=== PATIENT | female | born 1965 | race Hispanic/Latino ===

== ENCOUNTER 2017-11-09 13:05 | Inpatient (IN) | payer MEDICAID ==
[~2017-11-09] VITALS: Ht 157.5 cm; Wt 59.9 kg
[~2017-11-09 13:05] MED LIST: ACETAMINOP650 MG/20. PO; AMLODIPINE BESYL5 MG PO; ARICEPT5 MG PO; ATIVAN1 MG PO; BENADRYL25 MG PO; COLACE100 MG PO; DILANTIN100 MG PO; IMODIUM2 MG PO; IRON325 M1 PO; LORAZEPAM0.5 MG PO; MULTIVITAMINS1 EAC2 PO; NAMENDA10 MG PO; NEXIUM40 MG PO; OYST CAL D 5001 EACH PO; QUETIAPINE FUMA25 MG PO; SENOKOT1 TAB PO; TYLENOL #31 TAB PO; VITAMIN B-1100 MG PO; VITAMIN D400 INTLU PO
[2017-11-09] MEDS ORDERED: NS 1000ml 2,200 ML IVLG ONE (13:15)
[2017-11-09] MEDS ORDERED: Albuterol/Ipratropium 3ml neb HHN ONE (13:30)
[2017-11-09 13:41] LABS: APPEARANCE,URINE SLIGHTLY CLOUDY; BILIRUBIN, URINE NEGATIVE (NEGATIVE); GLUCOSE, URINE (UA) NEGATIVE (NEGATIVE); KETONES,URINE 2+ (NEGATIVE); LEUKOCYTE ESTERASE ,URINE 3+ (NEGATIVE); NITRITE,URINE NEGATIVE (NEGATIVE); PH,URINE 6.5 (4.5-8.0); PROTEIN,URINE 4+ (NEGATIVE); UROBILINOGEN,URINE NORMAL MG/DL (0.0-1.0)
[2017-11-09 13:41] LABS: HEMATOCRIT 49.2 % (37.0-47.0); MEAN CORPUSCULAR VOLUME 92 FL (80-99); PLATELET COUNT 365 K/UL (150-450); RED BLOOD COUNT 5.36 M/UL (4.20-5.40); RED CELL DISTRIBUTION WIDTH 14.1 % (11.6-14.8)
[2017-11-09 13:48] LABS: COLOR,URINE YELLOW
[2017-11-09 13:54] LABS: INR 1.1 (0.9-1.1)
[2017-11-09 14:09] LABS: ALANINE AMINOTRANSFERASE 23 U/L (12-78); ANION GAP 25 mmol/L (5-15); ASPARTATE AMINO TRANSFERASE 23 U/L (15-37); BILIRUBIN,TOTAL 0.6 MG/DL (0.2-1.0); BLOOD UREA NITROGEN 98 mg/dL (7-18); CALCIUM 10.3 MG/DL (8.5-10.1); CARBON DIOXIDE 15 MMOL/L (21-32); CHLORIDE 136 MMOL/L (98-107); CKMB < 0.5 NG/ML (0.0-3.6); CREATINE KINASE 45 U/L (26-308); CREATININE 6.2 MG/DL (0.55-1.30); PHOSPHORUS 7.2 MG/DL (2.5-4.9); POTASSIUM 4.8 MMOL/L (3.5-5.1)
[2017-11-09 14:10] LABS: ALBUMIN 3.6 G/DL (3.4-5.0); ALBUMIN/GLOBULIN RATIO 0.5 (1.0-2.7); ALKALINE PHOSPHATASE 187 U/L (46-116)
[2017-11-09 14:11] LABS: SODIUM 177 MMOL/L (136-145)
[2017-11-09 15:00] VITALS: BP 85/55
--- NOTE | 2017-11-09 15:01 | Emergency Room Report ---
History of Present Illness General Chief Complaint: Dyspnea/Respdistress Present Illness HPI Patient is a 52-year-old female brought in by EMS after a decreased oxygen saturation. Patient was noted to have a prior history of tracheostomy. Tracheostomy had been removed. Patient was noted to be chronically debilitated. She was the sent in for increased difficulty breathing. (Khang Boles MD) Allergies: Coded Allergies: CEFEPIME (Unverified Allergy, Unknown, 11/09/17) Patient History Past Medical History: see triage record Last Menstrual Period: na Now: No Reviewed Nursing Documentation: PMH: Agreed; PSxH: Agreed (Khang Boles MD) Nursing Documentation-PMH Hx Cardiac Problems: Yes - CHF Hx Neurological Problems: Yes - HYDROCEPHALUS Hx Seizures: Yes (Khang Boles MD) Physical Exam Vital Signs Date Time Temp Pulse Resp B/P (MAP) Pulse Ox O2 Delivery O2 Flow Rate FiO2 11/09/17 13:00 96.2 122 28 98/78 97 Simple Mask 10.0 96.3 General Appearance: thin, Chronically Ill Head: other - vp analysis shunt present ENT: dry mucus membranes Neck: limited range of motion Respiratory: lungs clear, normal breath sounds, no rhonchi Cardiovascular #1: tachycardia Gastrointestinal: normal bowel sounds, non tender, soft, other - suprapubic catheter] Neurologic: responsive, motor weakness (Khang Boles MD) Medical Decision Making Diagnostic Impression: Primary Impression: Renal failure Additional Impressions: Acidosis Severe sepsis UTI (urinary tract infection) ER Course . Present for shortness of breath. The differential diagnosis included wasn't limited to dehydration, sepsis, pneumonia, COPD among others.Because of complexity of patient's case laboratory testing and imaging studies were ordered.The patient noted to have some evidence of urinary infection on laboratory testing. Patient was started on IV fluids with improvement in her blood pressure.The patient will likely require admission for further management and IV antibiotics. Labs Test 11/09/17 13:00 11/09/17 13:30 11/09/17 14:35 White Blood Count 11.0 K/UL (4.8-10.8) Red Blood Count 5.36 M/UL (4.20-5.40) Hemoglobin 15.0 G/DL (12.0-16.0) Hematocrit 49.2 % (37.0-47.0) Mean Corpuscular Volume 92 FL (80-99) Mean Corpuscular Hemoglobin 28.0 PG (27.0-31.0) Mean Corpuscular Hemoglobin Concent 30.5 G/DL (32.0-36.0) Red Cell Distribution Width 14.1 % (11.6-14.8) Platelet Count 365 K/UL (150-450) Mean Platelet Volume 8.9 FL (6.5-10.1) Neutrophils (%) (Auto) % (45.0-75.0) Lymphocytes (%) (Auto) % (20.0-45.0) Monocytes (%) (Auto) % (1.0-10.0) Eosinophils (%) (Auto) % (0.0-3.0) Basophils (%) (Auto) % (0.0-2.0) Differential Total Cells Counted 100 Neutrophils % (Manual) 72 % (45-75) Lymphocytes % (Manual) 24 % (20-45) Monocytes % (Manual) 4 % (1-10) Eosinophils % (Manual) 0 % (0-3) Basophils % (Manual) 0 % (0-2) Band Neutrophils 0 % (0-8) Platelet Estimate Adequate Platelet Morphology Normal Anisocytosis 1+ Prothrombin Time 11.4 SEC (9.30-11.50) Prothromb Time International Ratio 1.1 (0.9-1.1) Activated Partial Thromboplast Time 22 SEC (23-33) Sodium Level 177 MMOL/L (136-145) Potassium Level 4.8 MMOL/L (3.5-5.1) Chloride Level 136 MMOL/L (98-107) Carbon Dioxide Level 15 MMOL/L (21-32) Anion Gap 25 mmol/L (5-15) Blood Urea Nitrogen 98 mg/dL (7-18) Creatinine 6.2 MG/DL (0.55-1.30) Estimat Glomerular Filtration Rate 7.0 mL/min (>60) Glucose Level 128 MG/DL (74-106) Calcium Level 10.3 MG/DL (8.5-10.1) Phosphorus Level 7.2 MG/DL (2.5-4.9) Magnesium Level 3.0 MG/DL (1.8-2.4) Total Bilirubin 0.6 MG/DL (0.2-1.0) Aspartate Amino Transf (AST/SGOT) 23 U/L (15-37) Alanine Aminotransferase (ALT/SGPT) 23 U/L (12-78) Alkaline Phosphatase 187 U/L (46-116) Total Creatine Kinase 45 U/L (26-308) Creatine Kinase MB < 0.5 NG/ML (0.0-3.6) Creatine Kinase MB Relative Index 1.1 Troponin I 0.000 ng/mL (0.000-0.056) Total Protein 10.9 G/DL (6.4-8.2) Albumin 3.6 G/DL (3.4-5.0) Globulin 7.3 g/dL Albumin/Globulin Ratio 0.5 (1.0-2.7) Urine Color Yellow Urine Appearance Slightly cloudy Urine pH 6.5 (4.5-8.0) Urine Specific [place] 1.015 (1.005-1.035) Urine Protein 4+ (NEGATIVE) Urine Glucose (UA) Negative (NEGATIVE) Urine Ketones 2+ (NEGATIVE) Urine Blood 5+ (NEGATIVE) Urine Nitrite Negative (NEGATIVE) Urine Bilirubin Negative (NEGATIVE) Urine Urobilinogen Normal MG/DL (0.0-1.0) Urine Leukocyte Esterase 3+ (NEGATIVE) Urine RBC 40-60 /HPF (0 - 2) Urine WBC 40-60 /HPF (0 - 2) Urine Squamous Epithelial Cells Few /LPF (NONE/OCC) Urine Bacteria Few /HPF (NONE) (Khang Boles MD) ER Course Patient presents with reports of shortness of breath please refer to the initial note for the initial history and evaluation A secondary evaluation is performed by myself as well With further medical record search Patient appears to have a complex medical history including recent renal failure Patient has a suprapubic catheter Is also reports of having bilateral J stents Patient's last review of medical records reveals kidney function that had improved with the BUN/creatinine and creatinine of 18 and 1.4 Patient herself is not able to provide any history This does limit the history of present illness significantly At this time the patient's kidney function returns significantly abnormal Aggressive hydration is performed Labs Test 11/09/17 13:00 11/09/17 13:30 11/09/17 14:35 White Blood Count 11.0 K/UL (4.8-10.8) Red Blood Count 5.36 M/UL (4.20-5.40) Hemoglobin 15.0 G/DL (12.0-16.0) Hematocrit 49.2 % (37.0-47.0) Mean Corpuscular Volume 92 FL (80-99) Mean Corpuscular Hemoglobin 28.0 PG (27.0-31.0) Mean Corpuscular Hemoglobin Concent 30.5 G/DL (32.0-36.0) Red Cell Distribution Width 14.1 % (11.6-14.8) Platelet Count 365 K/UL (150-450) Mean Platelet Volume 8.9 FL (6.5-10.1) Neutrophils (%) (Auto) % (45.0-75.0) Lymphocytes (%) (Auto) % (20.0-45.0) Monocytes (%) (Auto) % (1.0-10.0) Eosinophils (%) (Auto) % (0.0-3.0) Basophils (%) (Auto) % (0.0-2.0) Differential Total Cells Counted 100 Neutrophils % (Manual) 72 % (45-75) Lymphocytes % (Manual) 24 % (20-45) Monocytes % (Manual) 4 % (1-10) Eosinophils % (Manual) 0 % (0-3) Basophils % (Manual) 0 % (0-2) Band Neutrophils 0 % (0-8) Platelet Estimate Adequate Platelet Morphology Normal Anisocytosis 1+ Prothrombin Time 11.4 SEC (9.30-11.50) Prothromb Time International Ratio 1.1 (0.9-1.1) Activated Partial Thromboplast Time 22 SEC (23-33) Sodium Level 177 MMOL/L (136-145) Potassium Level 4.8 MMOL/L (3.5-5.1) Chloride Level 136 MMOL/L (98-107) Carbon Dioxide Level 15 MMOL/L (21-32) Anion Gap 25 mmol/L (5-15) Blood Urea Nitrogen 98 mg/dL (7-18) Creatinine 6.2 MG/DL (0.55-1.30) Estimat Glomerular Filtration Rate 7.0 mL/min (>60) Glucose Level 128 MG/DL (74-106) Lactic Acid Level 3.40 mmol/L (0.4-2.0) 2.80 mmol/L (0.66-2.22) Calcium Level 10.3 MG/DL (8.5-10.1) Phosphorus Level 7.2 MG/DL (2.5-4.9) Magnesium Level 3.0 MG/DL (1.8-2.4) Total Bilirubin 0.6 MG/DL (0.2-1.0) Aspartate Amino Transf (AST/SGOT) 23 U/L (15-37) Alanine Aminotransferase (ALT/SGPT) 23 U/L (12-78) Alkaline Phosphatase 187 U/L (46-116) Total Creatine Kinase 45 U/L (26-308) Creatine Kinase MB < 0.5 NG/ML (0.0-3.6) Creatine Kinase MB Relative Index 1.1 Troponin I 0.000 ng/mL (0.000-0.056) Total Protein 10.9 G/DL (6.4-8.2) Albumin 3.6 G/DL (3.4-5.0) Globulin 7.3 g/dL Albumin/Globulin Ratio 0.5 (1.0-2.7) Urine Color Yellow Urine Appearance Slightly cloudy Urine pH 6.5 (4.5-8.0) Urine Specific [place] 1.015 (1.005-1.035) Urine Protein 4+ (NEGATIVE) Urine Glucose (UA) Negative (NEGATIVE) Urine Ketones 2+ (NEGATIVE) Urine Blood 5+ (NEGATIVE) Urine Nitrite Negative (NEGATIVE) Urine Bilirubin Negative (NEGATIVE) Urine Urobilinogen Normal MG/DL (0.0-1.0) Urine Leukocyte Esterase 3+ (NEGATIVE) Urine RBC 40-60 /HPF (0 - 2) Urine WBC 40-60 /HPF (0 - 2) Urine Squamous Epithelial Cells Few /LPF (NONE/OCC) Urine Bacteria Few /HPF (NONE) (Tonie Squires DO) Rhythm Strip Diag. Results EP Interpretation: yes Rate: 66 Rhythm: NSR, no PVC's, no ectopy (Tonie Squires DO) Chest X-Ray Diagnostic Results Chest X-Ray Diagnostic Results : Chest X-Ray Ordered: Yes # of Views/Limited/Complete: 1 View Indication: Chest Pain EP Interpretation: Yes Interpretation: no consolidation, no effusion, no pneumothorax Impression: No acute disease Electronically Signed by: Tonie Squires DO (Tonie Squires DO) CT/MRI/US Diagnostic Results CT/MRI/US Diagnostic Results : Impression CT abdomen pelvis: Refer to report for full specific, KNIFE CHANGER shunt in place, bilateral nephrolithiasis (Tonie Squires DO) Last Vital Signs Date Time Temp Pulse Resp B/P (MAP) Pulse Ox O2 Delivery O2 Flow Rate FiO2 11/09/17 14:24 120 24 11/09/17 13:55 97 Nasal Cannula 2.0 11/09/17 13:00 96.2 98/78 96.3 Status: unchanged (Khang Boles MD) Status: improved (Tonie Squires DO) Disposition: ADMITTED INPATIENT Condition: Serious Referrals: NOT CHOSEN IPA/,REFERRING (PCP) Khang Boles MD Nov 09, 2017 15:01 Tonie Suqires DO Nov 09, 2017 15:26
[2017-11-09 16:00] VITALS: BP 90/53
[2017-11-09] MEDS ORDERED: cefTRIAXone 1 GM in NS 55 ML IVPB ONE (16:00)
[2017-11-09 17:00] VITALS: BP 91/62
--- NOTE | 2017-11-09 18:01 | History and Physical ---
History & Physical (DB) History & Physical History & Physical DICT # [id number] Jose Montalvo MD Nov 09, 2017 18:01
[2017-11-09] MEDS ORDERED: CRANBERRY425 MG PO (18:06)
[2017-11-09] MEDS ORDERED: ACETAMINOPHEN325 M1 ORAL (18:13)
[2017-11-09] MEDS ORDERED: ZOFRAN4 M3 ORAL (18:13)
[2017-11-09] MEDS ORDERED: HYDROCORTISONE 1% TOPIC (18:13)
[2017-11-09] MEDS ORDERED: FLORASTOR250 MG ORAL (18:13)
[2017-11-09] MEDS ORDERED: PROTONIX40 MG ORAL (18:13)
[2017-11-09] MEDS ORDERED: MIDODRINE HCL5 MG ORAL (18:13)
[2017-11-09] MEDS ORDERED: MULTIVITAMINS1 EAC8 ORAL (18:13)
[2017-11-09] MEDS ORDERED: LEVETIRACETAM500 MG ORAL (18:13)
[2017-11-09] MEDS ORDERED: DOCUSATE SODIU100 MG ORAL (18:13)
[2017-11-09] MEDS ORDERED: SENNA8.6 M2 PO (18:14)
[2017-11-09 18:15] VITALS: BP 95/67
[2017-11-09 19:20] VITALS: BP 98/68
[2017-11-09 20:30] VITALS: BP 101/65
[2017-11-09] MEDS ORDERED: Sennosides 8.6mg ORAL PRN (21:30)
[2017-11-09] MEDS ORDERED: Piperacillin/Tazobactam 3.375 GM in D5W 110 ML IVPB SCH (22:30)
--- NOTE | 2017-11-09 22:39 | Infectious Diseases Prog Note ---
Assessment/Plan Problems: (1) Acute pyelonephritis Assessment & Plan: suspect due to right ureter stent obstruction, continue meropenem pending culture, recommend urology eval, will order renal US (2) Hydronephrosis of right kidney Assessment & Plan: suspect ureter stent malfunction , will order renal US, recommend urology eval (3) Severe sepsis Assessment & Plan: suspect due to UTI and possible pneumonia , continue meropenem pending blood culture (4) Renal failure Assessment & Plan: continue hydration , monitor renal function, consult renal (5) Hypernatremia Assessment & Plan: due to free water loss , continue hydration with close monitor of serum sodium (6) Acidosis Assessment & Plan: due to the above Subjective Allergies: Coded Allergies: CEFEPIME (Unverified Allergy, Unknown, 11/09/17) Objective Vital Signs Last 24 Hour Vital Signs Date Time Temp Pulse Resp B/P (MAP) Pulse Ox O2 Delivery O2 Flow Rate FiO2 11/09/17 20:30 93.8 93 22 101/65 (77) 95 93.8 11/09/17 20:07 93.8 95 18 98/68 95 Nasal Cannula 2.0 93.8 97 95 11/09/17 19:20 93.8 97 18 98/68 95 Nasal Cannula 2.0 93.8 95 11/09/17 18:15 95 16 95/67 95 Nasal Cannula 2.0 11/09/17 17:00 100 16 91/62 95 Nasal Cannula 2.0 11/09/17 16:00 101 16 90/53 97 Nasal Cannula 2.0 11/09/17 15:00 105 16 85/55 97 Nasal Cannula 2.0 11/09/17 14:24 120 24 11/09/17 13:55 117 20 97 Nasal Cannula 2.0 11/09/17 13:35 119 22 98 Room Air 11/09/17 13:33 119 22 Room Air 11/09/17 13:00 96.2 122 28 98/78 97 Simple Mask 10.0 96.3 Height (Feet): 5 Height (Inches): 3.00 Weight (Pounds): 160 Laboratory Tests Test 11/09/17 13:00 11/09/17 13:30 11/09/17 14:35 White Blood Count 11.0 K/UL (4.8-10.8) H Red Blood Count 5.36 M/UL (4.20-5.40) Hemoglobin 15.0 G/DL (12.0-16.0) Hematocrit 49.2 % (37.0-47.0) H Mean Corpuscular Volume 92 FL (80-99) Mean Corpuscular Hemoglobin 28.0 PG (27.0-31.0) Mean Corpuscular Hemoglobin Concent 30.5 G/DL (32.0-36.0) L Red Cell Distribution Width 14.1 % (11.6-14.8) Platelet Count 365 K/UL (150-450) Mean Platelet Volume 8.9 FL (6.5-10.1) Neutrophils (%) (Auto) % (45.0-75.0) Lymphocytes (%) (Auto) % (20.0-45.0) Monocytes (%) (Auto) % (1.0-10.0) Eosinophils (%) (Auto) % (0.0-3.0) Basophils (%) (Auto) % (0.0-2.0) Differential Total Cells Counted 100 Neutrophils % (Manual) 72 % (45-75) Lymphocytes % (Manual) 24 % (20-45) Monocytes % (Manual) 4 % (1-10) Eosinophils % (Manual) 0 % (0-3) Basophils % (Manual) 0 % (0-2) Band Neutrophils 0 % (0-8) Platelet Estimate Adequate Platelet Morphology Normal Anisocytosis 1+ Prothrombin Time 11.4 SEC (9.30-11.50) Prothromb Time International Ratio 1.1 (0.9-1.1) Activated Partial Thromboplast Time 22 SEC (23-33) L Sodium Level 177 MMOL/L (136-145) *H Potassium Level 4.8 MMOL/L (3.5-5.1) Chloride Level 136 MMOL/L (98-107) H Carbon Dioxide Level 15 MMOL/L (21-32) L Anion Gap 25 mmol/L (5-15) H Blood Urea Nitrogen 98 mg/dL (7-18) H Creatinine 6.2 MG/DL (0.55-1.30) H Estimat Glomerular Filtration Rate 7.0 mL/min (>60) Glucose Level 128 MG/DL (74-106) H Lactic Acid Level 3.40 mmol/L (0.4-2.0) H 2.80 mmol/L (0.66-2.22) H Calcium Level 10.3 MG/DL (8.5-10.1) H Phosphorus Level 7.2 MG/DL (2.5-4.9) H Magnesium Level 3.0 MG/DL (1.8-2.4) H Total Bilirubin 0.6 MG/DL (0.2-1.0) Aspartate Amino Transf (AST/SGOT) 23 U/L (15-37) Alanine Aminotransferase (ALT/SGPT) 23 U/L (12-78) Alkaline Phosphatase 187 U/L (46-116) H Total Creatine Kinase 45 U/L (26-308) Creatine Kinase MB < 0.5 NG/ML (0.0-3.6) Creatine Kinase MB Relative Index 1.1 Troponin I 0.000 ng/mL (0.000-0.056) Total Protein 10.9 G/DL (6.4-8.2) H Albumin 3.6 G/DL (3.4-5.0) Globulin 7.3 g/dL Albumin/Globulin Ratio 0.5 (1.0-2.7) L Urine Color Yellow Urine Appearance Slightly cloudy Urine pH 6.5 (4.5-8.0) Urine Specific [place] 1.015 (1.005-1.035) Urine Protein 4+ (NEGATIVE) H Urine Glucose (UA) Negative (NEGATIVE) Urine Ketones 2+ (NEGATIVE) H Urine Blood 5+ (NEGATIVE) H Urine Nitrite Negative (NEGATIVE) Urine Bilirubin Negative (NEGATIVE) Urine Urobilinogen Normal MG/DL (0.0-1.0) Urine Leukocyte Esterase 3+ (NEGATIVE) H Urine RBC 40-60 /HPF (0 - 2) H Urine WBC 40-60 /HPF (0 - 2) H Urine Squamous Epithelial Cells Few /LPF (NONE/OCC) Urine Bacteria Few /HPF (NONE) Current Medications Medications (Trade) Dose Ordered Sig/Tay Route PRN Reason Start Time Stop Time Status Last Admin Dose Admin Acetaminophen (Tylenol) 650 mg Q6H PRN ORAL Mild Pain/Temp > 101 11/09/17 21:30 12/09/17 21:29 Dextrose/Sodium Chloride 1,000 ml @ 150 mls/hr Q6H40M IV 11/09/17 22:30 12/09/17 22:29 Docusate Sodium (Colace) 100 mg TWICE A DAY ORAL 11/10/17 09:00 12/10/17 08:59 Heparin Sodium (Porcine) (Heparin 5000 units/ml) 5,000 units EVERY 12 HOURS SUBQ 11/10/17 09:00 12/10/17 08:59 Levetiracetam 100 ml @ 400 mls/hr Q12HR IVPB 11/09/17 22:30 12/09/17 22:29 Meropenem 1 gm/ Sodium Chloride 55 ml @ 110 mls/hr Q12HR IVPB 11/09/17 23:00 11/10/17 09:29 Midodrine (Pro-Amatine) 5 mg THREE TIMES A DAY ORAL 11/10/17 09:00 12/10/17 08:59 Ondansetron HCl (Zofran) 4 mg Q4H PRN IVP Nausea & Vomiting 11/09/17 21:30 12/09/17 21:29 Pantoprazole (Protonix) 40 mg DAILY IVP 11/10/17 09:00 12/10/17 08:59 Sennosides (Senokot) 1 tab DAILY PRN ORAL Constipation 11/09/17 21:30 12/09/17 21:29 Kortney Quiñones M.D. Nov 09, 2017 22:39
[2017-11-09 23:11] LABS: BASOPHILS % (AUTO) 1.4 % (0.0-2.0); EOSINOPHILS % (AUTO) 0.1 % (0.0-3.0); HEMATOCRIT 35.5 % (37.0-47.0); HEMOGLOBIN 11.4 G/DL (12.0-16.0); LYMPHOCYTES % (AUTO) 32.9 % (20.0-45.0); MEAN CORPUSCULAR VOLUME 91 FL (80-99); MONOCYTES % (AUTO) 6.6 % (1.0-10.0); NEUTROPHILS % (AUTO) 59.1 % (45.0-75.0); PLATELET COUNT 183 K/UL (150-450); RED BLOOD COUNT 3.92 M/UL (4.20-5.40); RED CELL DISTRIBUTION WIDTH 13.5 % (11.6-14.8); WHITE BLOOD COUNT 3.7 K/UL (4.8-10.8)
[2017-11-09] MEDS: Meropenem 1 GM in NS 55 ML IVPB SCH (23:22)
[2017-11-09] MEDS: levETIRAcetam 500mg/NS100ml 100 ML IVPB SCH (23:22)
[2017-11-09] MEDS: D5NS 1,000 ML IV SCH (23:23)
[2017-11-09 23:42] LABS: ALANINE AMINOTRANSFERASE 18 U/L (12-78); ALBUMIN 2.4 G/DL (3.4-5.0); ALBUMIN/GLOBULIN RATIO 0.5 (1.0-2.7); ALKALINE PHOSPHATASE 132 U/L (46-116); ANION GAP 16 mmol/L (5-15); ASPARTATE AMINO TRANSFERASE 17 U/L (15-37); BILIRUBIN,TOTAL 0.4 MG/DL (0.2-1.0); BLOOD UREA NITROGEN 74 mg/dL (7-18); CALCIUM 7.6 MG/DL (8.5-10.1); CARBON DIOXIDE 17 MMOL/L (21-32); CHLORIDE 141 MMOL/L (98-107); CREATININE 4.3 MG/DL (0.55-1.30); POTASSIUM 3.5 MMOL/L (3.5-5.1)
[2017-11-09 23:43] LABS: SODIUM 174 MMOL/L (136-145)
[2017-11-10] VITALS: BP 98/57
--- NOTE | 2017-11-10 03:00 | History and Physical Report ---
DATE OF ADMISSION: 11/09/2017 REASON FOR ADMISSION: Sepsis. HISTORY OF PRESENT ILLNESS: The patient is a 52-year-old female, [facility] resident with a history of prior tracheostomy, status post removal, traumatic brain injury, left hemiparesis, seizure disorder, bilateral staghorn renal calculi, suprapubic catheter, nephrostomy tube, recurrent UTIs, and multiple hospitalizations with sepsis and recurrent urinary tract infection in the past, who presented with shortness of breath, desaturation. Upon arrival to the ER, the patient has actually been fairly stable from a respiratory standpoint. Temperature was 96.2, heart rate 120 in sinus, and saturating 97% on room air to 2 liters. Labs are significant for sodium of 177, bicarbonate of 15, gap of 25, BUN and creatinine of 98 and 6.2, lactic acidosis. White count is only 11. Urine had 3+ leukocyte esterase, 40 to 60 whites. Chest x-ray not seen yet by myself, but per ER attending, there was no evidence of infiltrates. I will await the final for review by myself. The patient is unable to provide any history. PAST MEDICAL HISTORY: 1. Traumatic brain injury. 2. CVA. 3. Staghorn renal calculi. 4. Suprapubic catheter. 5. History of tracheostomy, status post takedown. 6. Seizure disorder. 7. assisted resident. ALLERGIES: Cefepime prior to admission. MEDICATIONS: Tylenol, Benadryl, Colace, Nexium, iron, Imodium, Ativan, Dilantin, and Senokot. REVIEW OF SYSTEMS: Unobtainable. SOCIAL HISTORY: Unobtainable. FAMILY HISTORY: Unobtainable. PHYSICAL EXAMINATION: VITAL SIGNS: Temperature is 96.9, pulse 120, blood pressure 85/55, respiratory rate 24, and saturating 97% on 2 liters. GENERAL: She is demented, nonverbal female, no acute distress. HEENT: Normocephalic and atraumatic. NECK: She has tracheostomy site, which is well healed. CHEST: Clear with faint rhonchi. HEART: Tachycardic, but regular. ABDOMEN: Soft, nontender, and nondistended. Suprapubic catheter was noted. EXTREMITIES: No cyanosis, clubbing, or edema. ANCILLARY DATA: White count 11, hemoglobin 15, hematocrit 49.2, and platelet count 365,000. INR 1.1. Sodium 177, potassium 4.8, chloride 136, bicarbonate 15, gap 25, BUN 98, creatinine 6.2, glucose 128. Lactic acid 3.4 and then 2.8. Calcium 10.3. Phosphorus 7.2. Magnesium 3. Total bilirubin 0.6, AST 23, ALT 23, alkaline phosphatase 187. CK 45. Troponin negative. Total protein 10.9, albumin 3.9, globulin 7.3. Urinalysis, 4+ protein, 2+ ketones, 5+ blood, negative nitrites, 3+ leukocyte esterase, 40 to 60 whites, and 40 to 60 reds. Chest x-ray pending. ASSESSMENT: The patient is a 52-year-old [facility] resident with history of dementia, traumatic brain injury, recurrent staghorn calculi, recurrent urinary tract infection, suprapubic catheter, prior trach, seizure disorder, nonverbal at baseline, presenting initially for desaturation, but now is stable respiratory dynamics, but concerned for sepsis and profound dehydration with acute kidney injury, anion gap, metabolic acidosis, lactic acidosis, and hemoconcentration all likely secondary to a source. PROBLEM LIST: 1. SIRS/sepsis. 2. Shock, likely septic. 3. Profound dehydration. 4. Hypernatremia, with an initial sodium of 177. 5. Anion gap metabolic acidosis, lactic acidosis. 6. Acute kidney injury, likely on chronic kidney disease. 7. Hypercalcemia. 8. Urinary tract infection. 9. History of traumatic brain injury, dementia, and seizure disorder. 10. History of prior tracheostomy, status post takedown. 11. History of staghorn renal calculi with multiple UTIs, status post suprapubic catheter placement. 12. assisted resident. 13. Nonverbal at baseline. 14. Bed-bound. 15. Full Code. TREATMENT PLAN: 1. Aggressive IV fluid hydration. 2. Monitor sodium, renal function, lactic acid, serum bicarbonate, and anion gap. 3. Start Zosyn. 4. Follow up cultures. 5. Infectious Disease consultation. 6. Renal consultation. 7. NGT placement 8. [employer] eval when more alert 9. Heparin subcutaneous for DVT prophylaxis. 10. Pulmonary hygiene 11. As needed O2. 12. As needed bronchodilators. 13. The patient is a Full Code, POLST reviewed by myself, we will need to discuss goals of care further. Jose Montalvo M.D. DR: MARCIA JOB#: [id number] CC: VERA
[2017-11-10 04:00] VITALS: BP 109/71
[2017-11-10] MEDS: D5NS 1,000 ML IV SCH (05:03)
[2017-11-10 05:12] LABS: BASOPHILS % (AUTO) 0.5 % (0.0-2.0); EOSINOPHILS % (AUTO) 0.3 % (0.0-3.0); HEMATOCRIT 34.1 % (37.0-47.0); HEMOGLOBIN 10.8 G/DL (12.0-16.0); LYMPHOCYTES % (AUTO) 19.4 % (20.0-45.0); MEAN CORPUSCULAR VOLUME 92 FL (80-99); MONOCYTES % (AUTO) 3.8 % (1.0-10.0); NEUTROPHILS % (AUTO) 76.1 % (45.0-75.0); PLATELET COUNT 166 K/UL (150-450); RED BLOOD COUNT 3.72 M/UL (4.20-5.40); RED CELL DISTRIBUTION WIDTH 13.8 % (11.6-14.8); WHITE BLOOD COUNT 3.9 K/UL (4.8-10.8)
[2017-11-10 05:15] LABS: ANION GAP 16 mmol/L (5-15); BLOOD UREA NITROGEN 67 mg/dL (7-18); CALCIUM 7.5 MG/DL (8.5-10.1); CARBON DIOXIDE 16 MMOL/L (21-32); CHLORIDE 141 MMOL/L (98-107); CREATININE 3.9 MG/DL (0.55-1.30); POTASSIUM 3.3 MMOL/L (3.5-5.1)
[2017-11-10 05:41] LABS: SODIUM 173 MMOL/L (136-145)
[2017-11-10 08:00] VITALS: BP 141/57
--- NOTE | 2017-11-10 08:19 | Pulmonology Progress Note ---
Assessment/Plan Assessment/Plan ASSESSMENT: The patient is a 52-year-old group home resident with history of dementia, traumatic brain injury, recurrent staghorn calculi, recurrent urinary tract infection, suprapubic catheter, prior trach, seizure disorder, nonverbal at baseline, presenting initially for desaturation, but now is stable respiratory dynamics, but concerned for sepsis and profound dehydration with acute kidney injury, anion gap, metabolic acidosis, lactic acidosis, and hemoconcentration all likely secondary to a source. PROBLEM LIST: 1. SIRS/sepsis. 2. Shock, likely septic. 3. Profound dehydration. 4. Hypernatremia, with an initial sodium of 177. 5. Anion gap metabolic acidosis, lactic acidosis. 6. Acute kidney injury, likely on chronic kidney disease. 7. Hypercalcemia. 8. Urinary tract infection. 9. History of traumatic brain injury, dementia, and seizure disorder. 10. History of prior tracheostomy, status post takedown. 11. History of staghorn renal calculi with multiple UTIs, status post suprapubic catheter placement. 12. [facility]. 13. Nonverbal at baseline. 14. Bed-bound. 15. Full Code. TREATMENT PLAN: 1. Change IVF to [id number] 2. Monitor sodium, renal function, lactic acid, serum bicarbonate, and anion gap. Renal consultation 3. Continue MEROPENEM per ID, F/U Cx's 4. NPO, place NGT, [employer] eval when more alert 5. Heparin subcutaneous for DVT prophylaxis. 6. PRN O2, PRN HHN's 7. The patient is a Full Code, POLST reviewed by myself, we will need to discuss goals of care further. Subjective Allergies: Coded Allergies: CEFEPIME (Unverified Allergy, Unknown, 11/09/17) Subjective AFVSS, O2 needs stable Na down to 173, ,BUN/Cr 67/3.9, LA resolved No cough, no SOB, no F/C, no distress Objective Last 24 Hour Vital Signs Date Time Temp Pulse Resp B/P (MAP) Pulse Ox O2 Delivery O2 Flow Rate FiO2 11/10/17 08:00 98.3 105 21 141/57 (85) 100 98.3 11/10/17 04:00 104 11/10/17 04:00 98.2 102 22 109/71 (84) 94 98.2 11/10/17 04:00 Nasal Cannula 2.0 11/10/17 00:00 94.0 95 24 98/57 (71) 95 94.0 11/10/17 00:00 Nasal Cannula 2.0 11/10/17 00:00 98 11/09/17 22:20 Nasal Cannula 2.0 11/09/17 20:30 95 11/09/17 20:30 93.8 93 22 101/65 (77) 95 93.8 11/09/17 20:07 93.8 95 18 98/68 95 Nasal Cannula 2.0 93.8 97 95 11/09/17 19:20 93.8 97 18 98/68 95 Nasal Cannula 2.0 93.8 95 11/09/17 18:15 95 16 95/67 95 Nasal Cannula 2.0 11/09/17 17:00 100 16 91/62 95 Nasal Cannula 2.0 11/09/17 16:00 101 16 90/53 97 Nasal Cannula 2.0 11/09/17 15:00 105 16 85/55 97 Nasal Cannula 2.0 11/09/17 14:24 120 24 11/09/17 13:55 117 20 97 Nasal Cannula 2.0 11/09/17 13:35 119 22 98 Room Air 11/09/17 13:33 119 22 Room Air 11/09/17 13:00 96.2 122 28 98/78 97 Simple Mask 10.0 96.3 Intake and Output 11/09/17 11/10/17 19:00 07:00 Intake Total 4155 ml Output Total 2250 ml Balance 4155 ml -2250 ml Intake IV Total 4155 ml Output Urine Total 2250 ml General Appearance: cachetic, other - demented HEENT: normocephalic, other - dry MM Respiratory/Chest: rhonchi Cardiovascular: normal peripheral pulses, normal rate, regular rhythm Abdomen: normal bowel sounds, soft, non tender, no organomegaly, non distended , other - SPC Extremities: no cyanosis, no clubbing, no edema, other - contracted Laboratory Tests 11/09/17 13:00: White Blood Count 11.0H, Red Blood Count 5.36, Hemoglobin 15.0, Hematocrit 49.2H , Mean Corpuscular Volume 92, Mean Corpuscular Hemoglobin 28.0, Mean Corpuscular Hemoglobin Concent 30.5L, Red Cell Distribution Width 14.1, Platelet Count 365, Mean Platelet Volume 8.9, Neutrophils (%) (Auto) , Lymphocytes (%) (Auto) , Monocytes (%) (Auto) , Eosinophils (%) (Auto) , Basophils (%) (Auto) , Differential Total Cells Counted 100, Neutrophils % ( Manual) 72, Lymphocytes % (Manual) 24, Monocytes % (Manual) 4, Eosinophils % ( Manual) 0, Basophils % (Manual) 0, Band Neutrophils 0, Platelet Estimate Adequate, Platelet Morphology Normal, Anisocytosis 1+, Prothrombin Time 11.4, Prothromb Time International Ratio 1.1, Activated Partial Thromboplast Time 22L , Sodium Level 177*H, Potassium Level 4.8, Chloride Level 136H, Carbon Dioxide Level 15L, Anion Gap 25H, Blood Urea Nitrogen 98H, Creatinine 6.2H, Estimat Glomerular Filtration Rate 7.0, Glucose Level 128H, Lactic Acid Level 3.40H, Calcium Level 10.3H, Phosphorus Level 7.2H, Magnesium Level 3.0H, Total Bilirubin 0.6, Aspartate Amino Transf (AST/SGOT) 23, Alanine Aminotransferase ( ALT/SGPT) 23, Alkaline Phosphatase 187H, Total Creatine Kinase 45, Creatine Kinase MB < 0.5, Creatine Kinase MB Relative Index 1.1, Troponin I 0.000, Total Protein 10.9H, Albumin 3.6, Globulin 7.3, Albumin/Globulin Ratio 0.5L 11/09/17 13:30: Urine Color Yellow, Urine Appearance Slightly cloudy, Urine pH 6.5, Urine Specific Brandon 1.015, Urine Protein 4+H, Urine Glucose (UA) Negative, Urine Ketones 2+H, Urine Blood 5+H, Urine Nitrite Negative, Urine Bilirubin Negative, Urine Urobilinogen Normal, Urine Leukocyte Esterase 3+H, Urine RBC 40-60H, Urine WBC 40-60H, Urine Squamous Epithelial Cells Few, Urine Bacteria Few 11/09/17 14:35: Lactic Acid Level 2.80H 11/09/17 22:50: White Blood Count 3.7#L, Red Blood Count 3.92L, Hemoglobin 11.4L, Hematocrit 35.5L, Mean Corpuscular Volume 91, Mean Corpuscular Hemoglobin 29.0, Mean Corpuscular Hemoglobin Concent 32.0, Red Cell Distribution Width 13.5, Platelet Count 183, Mean Platelet Volume 9.5, Neutrophils (%) (Auto) 59.1, Lymphocytes (% ) (Auto) 32.9, Monocytes (%) (Auto) 6.6, Eosinophils (%) (Auto) 0.1, Basophils ( %) (Auto) 1.4, Sodium Level 174*H, Potassium Level 3.5, Chloride Level 141H, Carbon Dioxide Level 17L, Anion Gap 16H, Blood Urea Nitrogen 74H, Creatinine 4.3H, Estimat Glomerular Filtration Rate 10.8, Glucose Level 117H, Lactic Acid Level 1.60, Calcium Level 7.6#L, Total Bilirubin 0.4, Aspartate Amino Transf ( AST/SGOT) 17, Alanine Aminotransferase (ALT/SGPT) 18, Alkaline Phosphatase 132H , Troponin I 0.000, Total Protein 7.6#, Albumin 2.4L, Globulin 5.2, Albumin/ Globulin Ratio 0.5L, Thyroid Stimulating Hormone (TSH) 1.460, Cortisol [Pending] 11/10/17 03:51: White Blood Count 3.9L, Red Blood Count 3.72L, Hemoglobin 10.8L, Hematocrit 34.1L, Mean Corpuscular Volume 92, Mean Corpuscular Hemoglobin 29.0, Mean Corpuscular Hemoglobin Concent 31.7L, Red Cell Distribution Width 13.8, Platelet Count 166, Mean Platelet Volume 9.0, Neutrophils (%) (Auto) 76.1H, Lymphocytes (%) (Auto) 19.4L, Monocytes (%) (Auto) 3.8, Eosinophils (%) (Auto) 0.3, Basophils (%) (Auto) 0.5, Sodium Level 173*H, Potassium Level 3.3L, Chloride Level 141H, Carbon Dioxide Level 16L, Anion Gap 16H, Blood Urea Nitrogen 67H, Creatinine 3.9H, Estimat Glomerular Filtration Rate 12.0, Glucose Level 203H, Lactic Acid Level 1.60, Calcium Level 7.5L, Troponin I 0.000 Current Medications Medications (Trade) Dose Ordered Sig/Tay Route PRN Reason Start Time Stop Time Status Last Admin Dose Admin Acetaminophen (Tylenol) 650 mg Q6H PRN ORAL Mild Pain/Temp > 101 11/09/17 21:30 12/09/17 21:29 Dextrose/Sodium Chloride 1,000 ml @ 150 mls/hr Q6H40M IV 11/09/17 22:30 12/09/17 22:29 11/10/17 05:03 Docusate Sodium (Colace) 100 mg TWICE A DAY ORAL 11/10/17 09:00 12/10/17 08:59 Heparin Sodium (Porcine) (Heparin 5000 units/ml) 5,000 units EVERY 12 HOURS SUBQ 11/10/17 09:00 12/10/17 08:59 Levetiracetam 100 ml @ 400 mls/hr Q12HR IVPB 11/09/17 22:30 12/09/17 22:29 11/09/17 23:22 Meropenem 1 gm/ Sodium Chloride 55 ml @ 110 mls/hr Q12HR IVPB 11/09/17 23:00 11/10/17 09:29 11/09/17 23:22 Midodrine (Pro-Amatine) 5 mg THREE TIMES A DAY ORAL 11/10/17 09:00 12/10/17 08:59 Ondansetron HCl (Zofran) 4 mg Q4H PRN IVP Nausea & Vomiting 11/09/17 21:30 12/09/17 21:29 Pantoprazole (Protonix) 40 mg DAILY IVP 11/10/17 09:00 12/10/17 08:59 Sennosides (Senokot) 1 tab DAILY PRN ORAL Constipation 11/09/17 21:30 12/09/17 21:29 Jose Montalvo MD Nov 10, 2017 08:19
--- NOTE | 2017-11-10 08:27 | Diagnostic Imaging Report ---
Indication: Shortness of breath Technique: One view of the chest Comparison: 03/10/2012 Findings: Lungs and pleural spaces are clear. The heart size is normal. Right-sided ventriculoperitoneal shunt tubing and bilateral ureteral stents are noted. No significant interim change Impression: No acute process
[2017-11-10] MEDS: Pantoprazole Inj IVP SCH (08:28)
[2017-11-10] MEDS: levETIRAcetam 500mg/NS100ml 100 ML IVPB SCH ×2 (08:28→20:44)
[2017-11-10] MEDS: Heparin 5000 units/ml inj SUBQ SCH ×2 (08:29→20:47)
[2017-11-10 08:57] LABS: PHOSPHORUS 4.8 MG/DL (2.5-4.9)
[2017-11-10] MEDS ORDERED: Docusate 100mg cap ORAL SCH (09:00)
[2017-11-10] MEDS ORDERED: D5 1/2NS w/KCl 20mEq 1,000 ML IV SCH (09:00)
[2017-11-10 09:13] LABS: CHOLESTEROL 101 MG/DL (< 200); HDL CHOLESTEROL 23 MG/DL (40-60); TRIGLYCERIDES 164 MG/DL (30-150)
[2017-11-10 09:16] LABS: CREATINE KINASE 110 U/L (26-308); GAMMA GLUTAMYL TRANSPEPTIDASE 27 U/L (5-85)
--- NOTE | 2017-11-10 09:17 | Diagnostic Imaging Report ---
Indication: Abdominal pain Technique: Spiral acquisitions obtained through the abdomen and pelvis. No oral contrast utilized, per emergency room physician request No IV contrast utilized, per referring physician request.. Multiplanar reconstructions were generated. Total dose length product 779.73 mGycm. CTDIvol(s) 14.79 mGy. Dose reduction achieved using automated exposure control Comparison: None Findings: There are bilateral nephroureteral stents. There is some mild to moderate right hydronephrosis, considerable periureteral fat stranding, and evidence of some thickening of the ureteral and renal pelvic mucosa. There is also a left nephroureteral stent. The left kidney is nonhydronephrotic, although there is mild proximal hydroureter. Both stents are in good position, proximal pigtails in the renal pelves and distal pigtails in the bladder. The bladder is empty, contains a suprapubic catheter. Lack of IV contrast limits assessment of the renal parenchyma. No gross renal parenchymal mass or cyst demonstrated. There is a 9 mm calculus in the lower pole of the left kidney Lack of IV contrast limits assessment of the other solid organs. The gallbladder is not visualized, may be surgically absent. No biliary ductal dilatation. The liver, pancreas, spleen, adrenals are unremarkable. Numerous splenic hilar varices are demonstrated, appearing to be spontaneous splenorenal shunt type varices. No retroperitoneal or mesenteric mass or adenopathy. No pelvic mass or adenopathy. Uterus and adnexal structures appear unremarkable. There is colonic diverticulosis. No evidence of diverticulitis. The appendix is normal. No small bowel distention. No free or loculated intraperitoneal gas or fluid is evident. The distal esophagus, stomach, duodenum are unremarkable. There is ventriculoperitoneal shunt tubing, traversing the subcutaneous fat of the right chest and upper abdomen, tip in the left upper quadrant. Atelectatic changes and possibly scarring are seen at the lung bases. The bones demonstrate degenerative spondylosis changes. Impression: Bilateral nephroureteral stents. Mild to moderate right hydronephrosis may indicate malfunction of the right stent. In addition, perinephric fat stranding, periureteral fat stranding, and apparent thickening of the renal pelvic and proximal ureteral mucosa could indicate component of pyelitis/ureter/nephritis. This finding represents a discrepancy from the [facility] preliminary report. Discrepant findings phoned to Dr. 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 This could indicate portal hypertension or splenic vein thrombosis. Correlate with clinical findings, consider contrast CT if clinically indicated Colonic diverticulosis. No evidence of diverticulitis Other findings as noted, including degenerative spondylosis, basilar pulmonary parenchymal atelectasis and/or scarring, ventricular peritoneal shunt The CT scanner at [facility] is accredited by the [employer] and the scans are performed using protocols designed to limit radiation exposure to as low as reasonably achievable to attain images of sufficient resolution adequate for diagnostic evaluation.
[2017-11-10] MEDS: Meropenem 1 GM in NS 55 ML IVPB SCH (09:24)
[2017-11-10] MEDS: D5W w/KCl 20mEq 1,000 ML IV SCH ×2 (10:12→19:17)
--- NOTE | 2017-11-10 11:52 | Consultation ---
Consult Note Consult Note asked to eval for renal failure Patient is a 52-year-old female brought in by EMS after a decreased oxygen saturation. Patient was noted to have a prior history of tracheostomy. Tracheostomy had been removed. Patient was noted to be chronically debilitated. She was the sent in for increased difficulty breathing. Coded Allergies: CEFEPIME (Unverified Allergy, Unknown, 11/09/17) Hx Cardiac Problems: Yes - CHF Hx Neurological Problems: Yes - HYDROCEPHALUS Hx Seizures: Yes PAST MEDICAL HISTORY: 1. Traumatic brain injury. 2. CVA. 3. Staghorn renal calculi. 4. Suprapubic catheter. 5. History of tracheostomy, status post takedown. 6. Seizure disorder. 7. [facility] resident. patient examined- data reviewed . Assessment/Plan Acute kidney injury, likely on chronic kidney disease. Hypernatremia, with an initial sodium of 177. Profound dehydration. Shock, likely septic. Hypercalcemia. on presentation Urinary tract infection. Has supraPubic cath History of traumatic brain injury, dementia, and seizure disorder. History of staghorn renal calculi with multiple UTIs, status post D5W KCL Antibiotics Anemia Parrish Briscoe MD Nov 10, 2017 11:52
[2017-11-10 12:00] VITALS: BP 118/69
[2017-11-10] MEDS: Docusate 100mg cap ORAL SCH ×2 (13:00→17:45)
--- NOTE | 2017-11-10 15:01 | Infectious Diseases Prog Note ---
Assessment/Plan Problems: (1) Acute pyelonephritis Assessment & Plan: suspect due to right ureter stent obstruction, continue meropenem pending culture, recommend urology eval, will order renal US (2) Hydronephrosis of right kidney Assessment & Plan: suspect ureter stent malfunction , will order renal US, recommend urology eval (3) Severe sepsis Assessment & Plan: suspect due to UTI and possible pneumonia , continue meropenem pending blood culture (4) Renal failure Assessment & Plan: continue hydration , monitor renal function, consult renal (5) Hypernatremia Assessment & Plan: due to free water loss , continue hydration with close monitor of serum sodium (6) Acidosis Assessment & Plan: due to the above (7) Left shoulder pain Assessment & Plan: will order X ray to evaluate Subjective ROS Limited/Unobtainable: Yes Allergies: Coded Allergies: CEFEPIME (Unverified Allergy, Unknown, 11/09/17) Subjective she was up in bed, awake, and alert, follow commands , complained of left arm pain Objective Vital Signs Last 24 Hour Vital Signs Date Time Temp Pulse Resp B/P (MAP) Pulse Ox O2 Delivery O2 Flow Rate FiO2 11/10/17 12:00 102 11/10/17 12:00 98.4 102 22 118/69 (85) 99 98.4 11/10/17 12:00 Nasal Cannula 3.0 11/10/17 08:00 99 11/10/17 08:00 Nasal Cannula 3.0 11/10/17 08:00 98.3 105 21 141/57 (85) 100 98.3 11/10/17 04:00 104 11/10/17 04:00 98.2 102 22 109/71 (84) 94 98.2 11/10/17 04:00 Nasal Cannula 2.0 11/10/17 00:00 94.0 95 24 98/57 (71) 95 94.0 11/10/17 00:00 Nasal Cannula 2.0 11/10/17 00:00 98 11/09/17 22:20 Nasal Cannula 2.0 11/09/17 20:30 95 11/09/17 20:30 93.8 93 22 101/65 (77) 95 93.8 11/09/17 20:07 93.8 95 18 98/68 95 Nasal Cannula 2.0 93.8 97 95 11/09/17 19:20 93.8 97 18 98/68 95 Nasal Cannula 2.0 93.8 95 11/09/17 18:15 95 16 95/67 95 Nasal Cannula 2.0 11/09/17 17:00 100 16 91/62 95 Nasal Cannula 2.0 11/09/17 16:00 101 16 90/53 97 Nasal Cannula 2.0 11/09/17 15:00 105 16 85/55 97 Nasal Cannula 2.0 Height (Feet): 5 Height (Inches): 2.00 Weight (Pounds): 129 General Appearance: no acute distress, cachetic, other - paresis on the left with muscle atrophy and contraction HEENT: normocephalic, atraumatic, anicteric, mucous membranes moist Respiratory/Chest: chest wall non-tender, no respiratory distress, no accessory muscle use, decreased breath sounds Cardiovascular: normal peripheral pulses, normal rate, regular rhythm, no gallop/murmur, no JVD Abdomen: soft, non tender, no organomegaly, non distended, no mass, no scars, hypoactive bowel sounds Extremities: no cyanosis, no clubbing Skin: no rash, no lesions, no ulcers Neurologic/Psychiatric: alert, unresponsiveness Musculoskeletal: atrophy, other - left arm pain with contraction Microbiology Date/Time Source Procedure Growth Status 11/09/17 13:20 Blood Blood Culture - Preliminary Resulted 11/09/17 13:30 Urine,Clean Catch Urine Culture - Preliminary Gram Negative Bacillus 1 Resulted 11/09/17 20:25 Rectum Received 11/09/17 13:20 Rectum VRE Culture Pending Resulted 11/09/17 13:20 Rectum - Preliminary Resulted Laboratory Tests Test 11/09/17 22:50 11/10/17 03:51 White Blood Count 3.7 K/UL (4.8-10.8) #L 3.9 K/UL (4.8-10.8) L Red Blood Count 3.92 M/UL (4.20-5.40) L 3.72 M/UL (4.20-5.40) L Hemoglobin 11.4 G/DL (12.0-16.0) L 10.8 G/DL (12.0-16.0) L Hematocrit 35.5 % (37.0-47.0) L 34.1 % (37.0-47.0) L Mean Corpuscular Volume 91 FL (80-99) 92 FL (80-99) Mean Corpuscular Hemoglobin 29.0 PG (27.0-31.0) 29.0 PG (27.0-31.0) Mean Corpuscular Hemoglobin Concent 32.0 G/DL (32.0-36.0) 31.7 G/DL (32.0-36.0) L Red Cell Distribution Width 13.5 % (11.6-14.8) 13.8 % (11.6-14.8) Platelet Count 183 K/UL (150-450) 166 K/UL (150-450) Mean Platelet Volume 9.5 FL (6.5-10.1) 9.0 FL (6.5-10.1) Neutrophils (%) (Auto) 59.1 % (45.0-75.0) 76.1 % (45.0-75.0) H Lymphocytes (%) (Auto) 32.9 % (20.0-45.0) 19.4 % (20.0-45.0) L Monocytes (%) (Auto) 6.6 % (1.0-10.0) 3.8 % (1.0-10.0) Eosinophils (%) (Auto) 0.1 % (0.0-3.0) 0.3 % (0.0-3.0) Basophils (%) (Auto) 1.4 % (0.0-2.0) 0.5 % (0.0-2.0) Sodium Level 174 MMOL/L (136-145) *H 173 MMOL/L (136-145) *H Potassium Level 3.5 MMOL/L (3.5-5.1) 3.3 MMOL/L (3.5-5.1) L Chloride Level 141 MMOL/L (98-107) H 141 MMOL/L (98-107) H Carbon Dioxide Level 17 MMOL/L (21-32) L 16 MMOL/L (21-32) L Anion Gap 16 mmol/L (5-15) H 16 mmol/L (5-15) H Blood Urea Nitrogen 74 mg/dL (7-18) H 67 mg/dL (7-18) H Creatinine 4.3 MG/DL (0.55-1.30) H 3.9 MG/DL (0.55-1.30) H Estimat Glomerular Filtration Rate 10.8 mL/min (>60) 12.0 mL/min (>60) Glucose Level 117 MG/DL (74-106) H 203 MG/DL (74-106) H Lactic Acid Level 1.60 mmol/L (0.4-2.0) 1.60 mmol/L (0.4-2.0) Calcium Level 7.6 MG/DL (8.5-10.1) #L 7.5 MG/DL (8.5-10.1) L Total Bilirubin 0.4 MG/DL (0.2-1.0) Aspartate Amino Transf (AST/SGOT) 17 U/L (15-37) Alanine Aminotransferase (ALT/SGPT) 18 U/L (12-78) Alkaline Phosphatase 132 U/L (46-116) H Troponin I 0.000 ng/mL (0.000-0.056) 0.000 ng/mL (0.000-0.056) Total Protein 7.6 G/DL (6.4-8.2) # Albumin 2.4 G/DL (3.4-5.0) L Globulin 5.2 g/dL Albumin/Globulin Ratio 0.5 (1.0-2.7) L Thyroid Stimulating Hormone (TSH) 1.460 uiU/mL (0.358-3.740) Cortisol Pending Hemoglobin A1c 5.1 % (4.3-6.0) Uric Acid 10.1 MG/DL (2.6-7.2) H Phosphorus Level 4.8 MG/DL (2.5-4.9) Magnesium Level 1.9 MG/DL (1.8-2.4) Gamma Glutamyl Transpeptidase 27 U/L (5-85) Total Creatine Kinase 110 U/L (26-308) C-Reactive Protein, Quantitative 6.3 mg/dL (0.00-0.90) H Triglycerides Level 164 MG/DL (30-150) H Cholesterol Level 101 MG/DL (< 200) LDL Cholesterol 59 mg/dL (<100) HDL Cholesterol 23 MG/DL (40-60) L Cholesterol/HDL Ratio 4.4 (3.3-4.4) Current Medications Medications (Trade) Dose Ordered Sig/Tay Route PRN Reason Start Time Stop Time Status Last Admin Dose Admin Acetaminophen (Tylenol) 650 mg Q6H PRN ORAL Mild Pain/Temp > 101 11/09/17 21:30 12/09/17 21:29 Dextrose/ Electrolytes 1,000 ml @ 100 mls/hr Q10H IV 11/10/17 09:30 12/10/17 09:29 11/10/17 10:12 Docusate Sodium (Colace) 100 mg TID ORAL 11/10/17 13:00 12/10/17 08:59 Heparin Sodium (Porcine) (Heparin 5000 units/ml) 5,000 units EVERY 12 HOURS SUBQ 11/10/17 09:00 12/10/17 08:59 11/10/17 08:29 Levetiracetam 100 ml @ 400 mls/hr Q12HR IVPB 11/09/17 22:30 12/09/17 22:29 11/10/17 08:28 Meropenem 500 mg/ Sodium Chloride 55 ml @ 110 mls/hr Q12HR IVPB 11/10/17 21:00 11/15/17 20:59 Midodrine (Pro-Amatine) 5 mg THREE TIMES A DAY ORAL 11/10/17 09:00 12/10/17 08:59 Ondansetron HCl (Zofran) 4 mg Q4H PRN IVP Nausea & Vomiting 11/09/17 21:30 12/09/17 21:29 Pantoprazole (Protonix) 40 mg DAILY IVP 11/10/17 09:00 12/10/17 08:59 11/10/17 08:28 Sennosides (Senokot) 1 tab DAILY PRN ORAL Constipation 11/09/17 21:30 12/09/17 21:29 Kortney Quiñones M.D. Nov 10, 2017 15:01
[2017-11-10 16:00] VITALS: BP 90/75
--- NOTE | 2017-11-10 16:07 | Diagnostic Imaging Report ---
Indication: Left shoulder pain Technique: 3 views of the left shoulder Comparison: No comparison shoulder radiographs.. Reference is made to a chest radiograph dated 03/10/2012 Findings: There is inferior subluxation of the left shoulder, with increased distance between the acromion and humeral head. This appears similar to the previous study on 10/20/2012, and is on that exam asymmetric as compared to the contralateral side which appears more normally aligned. There is considerable osteophyte formation and some degenerative remodeling of the humeral head and of the glenoid. No acute fractures. No acute dislocations. Impression: Inferior subluxation of the left humeral head, suspect chronic as it appears similar to prior 2012 chest radiograph. May indicate chronic rotator cuff laxity or posttraumatic change. Correlate with clinical history Considerable degenerative proliferative change of the humeral head and acromion No acute bony trauma
[2017-11-10 20:00] VITALS: BP 99/52
[2017-11-10] MEDS: Meropenem 500mg/NS 55ml IVPB SCH ×2 (20:44)
--- NOTE | 2017-11-10 23:45 | Consultation ---
DATE OF CONSULTATION: 11/10/2017 CONSULTING PHYSICIAN: Chin Jean M.D. REFERRING PHYSICIAN: Jose Montalvo M.D. REASON FOR CONSULTATION: For evaluation of suprapubic tube and hydronephrosis. HISTORY OF PRESENT ILLNESS: This is an unfortunate 52-year-old female. She is a resident of [facility]. She has a history of traumatic brain injury, history of hemiparesis, seizure disorder, bilateral staghorn calculi, suprapubic catheter, nephrostomy tubes, and recurrent UTIs. She was admitted with shortness of breath. Her suprapubic tube is in place, draining. Apparently, it was changed a number of weeks ago. Urology evaluation requested. Most of the history was obtained from the chart. PAST MEDICAL HISTORY: As above, traumatic brain injury, suprapubic tube, seizure disorder, and CVA. MEDICATIONS: Current medication list was reviewed. ALLERGIES: Cefepime. PHYSICAL EXAMINATION: VITAL SIGNS: Stable, afebrile. GENITOURINARY: Suprapubic tube is in place, 16-[place]oven[place], urine is yellowish with debris. LABORATORY AND DIAGNOSTIC DATA: Laboratory data was reviewed. UA showed 4+ protein, 40 to 60 rbc's, and wbc's. Creatinine on admission was 6.2 and has improved to 3.9, baseline is unknown to me. White count is 3.9 and hemoglobin 10.8. Imaging studies were reviewed. She had a CT scan and there was evidence of bilateral nephroureteral stents, mild to moderate right hydronephrosis. There was also a suprapubic tube in place. IMPRESSION: 1. History of hydronephrosis that is chronic. 2. Renal insufficiency, acute on chronic. 3. Hematuria. 4. Pyuria. 5. Proteinuria. 6. Urinary retention with chronic suprapubic tube. 7. Neurogenic bladder. PLAN AND DISCUSSION: The patient's suprapubic tube is to be irrigated p.r.n. Her renal function should be monitored and we need to get her old records regarding nephroureteral stents and go from there, but her hydronephrosis appears to be chronic at this time. She is to continue with antibiotics as ordered and we will follow up on the results of the urine culture and go from there. Thank you for this consultation. Chin Jean M.D. DR: MAYELA JOB#: [id number] CC:
--- NOTE | 2017-11-10 23:45 | Consultation ---
DATE OF CONSULTATION: 11/10/2017 INFECTIOUS DISEASE CONSULTATION CONSULTING PHYSICIAN: Kortney Quiñones M.D. REQUESTING PHYSICIAN: Jose Montalvo M.D. REASON FOR CONSULTATION: Sepsis, UTI and pyelonephritis with metabolic acidosis. Recommendation for antibiotics treatment. HISTORY OF PRESENT ILLNESS: The patient is a 52-year-old female who is a shelter resident with past medical history of traumatic brain injury, CVA, renal calculi, chronic urinary obstruction status post suprapubic catheter and history of tracheostomy, status post takedown, seizure disorder and PEG tube placement, status post removal, presented to [facility] with hypoxemia, desaturation, and shortness of breath. The patient was saturating 97% on 2 liter in the emergency room. Her laboratory showed evidence of urine tract infection. Chest x-ray showed basal atelectases, so the patient was started on meropenem empiric coverage and Infectious Diseases consultation was requested for antibiotics treatment and further management. As of note, the patient is poor historian, cannot provide any history. History was mainly obtained from the medical record. PAST MEDICAL HISTORY: Significant for traumatic brain injury, CVA, staghorn renal calculi, suprapubic catheter, history of tracheostomy status post takedown, seizure disorder, and shelter resident. MEDICATIONS: She was started on meropenem. For the rest of her medications, please refer to MAR. ALLERGIES: She is allergic to cefepime, unknown what kind of reaction. FAMILY HISTORY: Unable to obtain. SOCIAL HISTORY: She is a shelter patient. No recent drugs, tobacco, or alcohol. PHYSICAL EXAMINATION: GENERAL: Elderly female, lying in bed, unresponsive, not in acute distress with left paresis. VITAL SIGNS: Temperature 93.8 degrees, pulse 97, respirations 18, blood pressure 98/68, and saturation 95% on 2 liters nasal cannula. HEENT: Normocephalic and atraumatic. Strabismus in the right eye. Pale sclera. Dry oral mucosa with thick dry secretion and poor dental hygiene. NECK: Supple. No lymphadenopathy. CARDIOVASCULAR: Regular rate and rhythm. No murmur. LUNGS: She had diminished breathing sounds at the bases. No wheezing or rhonchi. ABDOMEN: Soft, nontender, nondistended. Normal bowel sound. Old PEG tube scar in place, dry and clean. EXTREMITY: She had contraction with muscle atrophy on the left side. No clubbing or cyanosis. No ulceration. LABORATORY AND DIAGNOSTIC DATA: White count of 11,000, hemoglobin of 15, and platelet count of 365. BUN of 67 and creatinine of 3.9. Urinalysis showed +3 leukocyte esterase, wbc's 40 to 60, and few bacteria. Microbiology, blood culture was pending and urine culture is pending. Imaging, chest x-ray showed no acute process. CT scan abdomen and pelvis showed bilateral nephroureteral stents, [id number] right hydronephrosis may indicate malfunctioning of the right stent, perinephric fat stranding, periureteral fat stranding and apparent thickening of the renal pelvis and proximal ureter mucosa could indicate component of ureteral nephritis. Suprapubic catheter in place, splenic hilar varicosities with spontaneous splenorenal shunt, could indicate portal hypertension or splenic vein thrombosis. ASSESSMENT AND RECOMMENDATION: 1. Acute pyelonephritis with right hydronephrosis due to possible stent obstruction. Continue meropenem empiric coverage for now. We will obtain renal ultrasound. The patient may need Urology consult for stent evaluation and possible removal as obstructed. 2. Severe sepsis due to the above. Continue meropenem, pending blood culture results. 3. Renal failure, suspect renal obstruction due to obstructed stent with hydronephrosis. Continue hydration. Avoid nephrotoxic medicine. Consult Urology for stent evaluation. 4. Hypernatremia due to free water loss. Continue hydration with close monitor of serum sodium. 5. Acidosis, metabolic due to the above. Continue hydration and antibiotics treatment. Thank you for the consult. ID will continue to follow. Kortney Quiñones M.D. DR: LAURYN JOB#: [id number] CC: VERA
[2017-11-11] VITALS: BP 100/67
[2017-11-11 04:00] VITALS: BP 102/73
[2017-11-11] MEDS: D5W w/KCl 20mEq 1,000 ML IV SCH ×3 (04:33→15:31)
[2017-11-11 04:54] LABS: HEMATOCRIT 37.4 % (37.0-47.0); HEMOGLOBIN 12.2 G/DL (12.0-16.0); MEAN CORPUSCULAR VOLUME 89 FL (80-99); PLATELET COUNT 184 K/UL (150-450); RED CELL DISTRIBUTION WIDTH 13.8 % (11.6-14.8); WHITE BLOOD COUNT 9.4 K/UL (4.8-10.8)
[2017-11-11 05:07] LABS: % IRON SATURATION 33 % (15-50); IRON 40 ug/dL (50-175); TOTAL IRON BINDING CAPACITY 121 ug/dL (250-450)
[2017-11-11 05:15] LABS: ALANINE AMINOTRANSFERASE 17 U/L (12-78); ALBUMIN 2.3 G/DL (3.4-5.0); ALBUMIN/GLOBULIN RATIO 0.4 (1.0-2.7); ALKALINE PHOSPHATASE 128 U/L (46-116); ANION GAP 15 mmol/L (5-15); ASPARTATE AMINO TRANSFERASE 25 U/L (15-37); BILIRUBIN,TOTAL 0.5 MG/DL (0.2-1.0); BLOOD UREA NITROGEN 45 mg/dL (7-18); CALCIUM 8.6 MG/DL (8.5-10.1); CARBON DIOXIDE 17 MMOL/L (21-32); CHLORIDE 136 MMOL/L (98-107); CREATININE 2.9 MG/DL (0.55-1.30); FERRITIN 1500 NG/ML (8-388)
[2017-11-11 05:21] LABS: POTASSIUM 2.7 MMOL/L (3.5-5.1); SODIUM 165 MMOL/L (136-145)
[2017-11-11 07:53] VITALS: BP 106/64
[2017-11-11] MEDS: levETIRAcetam 500mg/NS100ml 100 ML IVPB SCH ×2 (08:31→20:46)
[2017-11-11] MEDS: Docusate 100mg cap ORAL SCH ×3 (08:31→17:01)
[2017-11-11] MEDS: Pantoprazole Inj IVP SCH (08:31)
[2017-11-11] MEDS: Heparin 5000 units/ml inj SUBQ SCH ×2 (08:33→20:48)
[2017-11-11] MEDS: Meropenem 500mg/NS 55ml IVPB SCH ×2 (09:02)
--- NOTE | 2017-11-11 09:30 | Pulmonology Progress Note ---
Assessment/Plan Assessment/Plan ASSESSMENT: The patient is a 52-year-old [facility] resident with history of dementia, traumatic brain injury, recurrent staghorn calculi, recurrent urinary tract infection, suprapubic catheter, prior trach, seizure disorder, nonverbal at baseline, presenting initially for desaturation, but now is stable respiratory dynamics, but concerned for sepsis and profound dehydration with acute kidney injury, anion gap, metabolic acidosis, lactic acidosis, and hemoconcentration all likely secondary to a source. PROBLEM LIST: 1. SIRS/sepsis. 2. Shock, likely septic. 3. Profound dehydration. 4. Hypernatremia, with an initial sodium of 177. 5. Anion gap metabolic acidosis, lactic acidosis. 6. Acute kidney injury, likely on chronic kidney disease. 7. Hypercalcemia. 8. Urinary tract infection. 9. History of traumatic brain injury, dementia, and seizure disorder. 10. History of prior tracheostomy, status post takedown. 11. History of staghorn renal calculi with multiple UTIs, status post suprapubic catheter placement. 12. residential resident. 13. Nonverbal at baseline. 14. Bed-bound. 15. Full Code. TREATMENT PLAN: 1. CIVF per renal, replete electrolytes 2. Need to clarify feed situation, GI eval for NGT, PEG not within GOC, continue C 13 CATAPULT OPERATOR therapy 3. Continue MEROPENEM per ID, F/U Cx's 4. Appreciate eval 5. Heparin subcutaneous for DVT prophylaxis. 6. PRN O2, PRN HHN's 7. The patient is a Full Code, POLST reviewed by myself, we will need to discuss goals of care further. Subjective Allergies: Coded Allergies: CEFEPIME (Unverified Allergy, Unknown, 11/09/17) Subjective AFVSS, O2 needs stable Na down to 165, renal function better, electrolytes repleted Barely opens eyes, NGT placement was unsuccessful, per POLST to artificial feeding Failed C 13 CATAPULT OPERATOR eval No cough, no SOB, no F/C, no distress Objective Last 24 Hour Vital Signs Date Time Temp Pulse Resp B/P (MAP) Pulse Ox O2 Delivery O2 Flow Rate FiO2 11/11/17 08:00 Nasal Cannula 2.0 11/11/17 08:00 110 11/11/17 07:53 97.3 111 23 106/64 (78) 97 97.3 11/11/17 04:00 Nasal Cannula 3.0 11/11/17 04:00 97.6 108 26 102/73 (83) 99 97.6 11/11/17 03:54 108 11/11/17 00:00 97.6 87 20 100/67 (78) 98 97.6 11/11/17 00:00 Nasal Cannula 3.0 11/10/17 23:43 91 11/10/17 20:00 96.8 95 20 99/52 (68) 96 96.8 11/10/17 20:00 Nasal Cannula 3.0 11/10/17 19:06 101 11/10/17 16:00 Nasal Cannula 3.0 11/10/17 16:00 97.4 97 21 90/75 (80) 98 97.4 11/10/17 16:00 90 11/10/17 12:00 102 11/10/17 12:00 98.4 102 22 118/69 (85) 99 98.4 11/10/17 12:00 Nasal Cannula 3.0 Intake and Output 11/10/17 11/11/17 19:00 07:00 Intake Total 1390 ml 1230 ml Output Total 1000 ml 1100 ml Balance 390 ml 130 ml Intake IV Total 1390 ml 1230 ml Output Urine Total 1000 ml 1100 ml # Bowel Movements 2 General Appearance: cachetic - barely opens eyes HEENT: normocephalic, atraumatic, anicteric, other - Dry MM Respiratory/Chest: rhonchi Cardiovascular: normal peripheral pulses, normal rate, regular rhythm Abdomen: normal bowel sounds, soft, non tender, no organomegaly, non distended Extremities: no cyanosis, no clubbing, no edema, other - + contracutres Microbiology Date/Time Source Procedure Growth Status 11/09/17 13:20 Blood Blood Culture - Preliminary Staphylococcus Species Resulted 11/09/17 13:08 Blood Blood Culture - Preliminary NO GROWTH AFTER 24 HOURS Resulted 11/09/17 13:20 Nasal Nares MRSA Culture - Final Staphylococcus Aureus - Mrsa Complete 11/09/17 13:30 Urine,Clean Catch Urine Culture - Preliminary Providencia Stuartii Resulted 11/09/17 20:25 Rectum Received 11/09/17 13:20 Rectum VRE Culture - Final Enterococcus Faecalis - Vre Complete 11/09/17 13:20 Rectum - Final NO CARBAPENEM-RESISTANT ENTEROBACTERI... Complete Laboratory Tests 11/11/17 04:00: White Blood Count 9.4#, Red Blood Count 4.20, Hemoglobin 12.2, Hematocrit 37.4, Mean Corpuscular Volume 89, Mean Corpuscular Hemoglobin 29.2, Mean Corpuscular Hemoglobin Concent 32.7, Red Cell Distribution Width 13.8, Platelet Count 184, Mean Platelet Volume 8.7, Neutrophils (%) (Auto) , Lymphocytes (%) (Auto) , Monocytes (%) (Auto) , Eosinophils (%) (Auto) , Basophils (%) (Auto) , Neutrophils % (Manual) [Pending], Lymphocytes % (Manual) [Pending], Platelet Estimate [Pending], Platelet Morphology [Pending], Sodium Level 165*H, Potassium Level 2.7*L, Chloride Level 136H, Carbon Dioxide Level 17L, Anion Gap 15, Blood Urea Nitrogen 45H, Creatinine 2.9H, Estimat Glomerular Filtration Rate 16.9, Glucose Level 149H, Lactic Acid Level 1.90, Uric Acid 8.5H, Calcium Level 8.6, Phosphorus Level 1.0L, Magnesium Level 1.4L, Iron Level 40L, Total Iron Binding Capacity 121L, Percent Iron Saturation 33, Unsaturated Iron Binding 81L, Ferritin 1500H, Total Bilirubin 0.5, Aspartate Amino Transf (AST/ SGOT) 25, Alanine Aminotransferase (ALT/SGPT) 17, Alkaline Phosphatase 128H, Troponin I 0.030, Pro-B-Type Natriuretic Peptide 2207H, Total Protein 7.5, Albumin 2.3L, Globulin 5.2, Albumin/Globulin Ratio 0.4L, Vitamin B12 Level 1045H , Folate 11.4, Thyroid Stimulating Hormone (TSH) 2.391 Current Medications Medications (Trade) Dose Ordered Sig/Tay Route PRN Reason Start Time Stop Time Status Last Admin Dose Admin Acetaminophen (Tylenol) 650 mg Q6H PRN ORAL Mild Pain/Temp > 101 11/09/17 21:30 12/09/17 21:29 Dextrose/ Electrolytes 1,000 ml @ 125 mls/hr Q8H IV 11/11/17 10:00 12/10/17 09:59 Docusate Sodium (Colace) 100 mg TID ORAL 11/10/17 13:00 12/10/17 08:59 Heparin Sodium (Porcine) (Heparin 5000 units/ml) 5,000 units EVERY 12 HOURS SUBQ 11/10/17 09:00 12/10/17 08:59 11/11/17 08:33 Levetiracetam 100 ml @ 400 mls/hr Q12HR IVPB 11/09/17 22:30 12/09/17 22:29 11/11/17 08:31 Magnesium Sulfate 100 ml @ 100 mls/hr Q1H IVPB 11/11/17 10:00 11/11/17 13:59 Meropenem 500 mg/ Sodium Chloride 55 ml @ 110 mls/hr Q12HR IVPB 11/10/17 21:00 11/15/17 20:59 11/11/17 09:02 Midodrine (Pro-Amatine) 5 mg THREE TIMES A DAY ORAL 11/10/17 09:00 12/10/17 08:59 Ondansetron HCl (Zofran) 4 mg Q4H PRN IVP Nausea & Vomiting 11/09/17 21:30 12/09/17 21:29 Pantoprazole (Protonix) 40 mg DAILY IVP 11/10/17 09:00 12/10/17 08:59 11/11/17 08:31 Potassium Phosphate 30 mm/ Sodium Chloride 285 ml @ 47.5 mls/hr ONCE IV 11/11/17 13:00 11/11/17 14:30 Sennosides (Senokot) 1 tab DAILY PRN ORAL Constipation 11/09/17 21:30 12/09/17 21:29 Jose Montalvo MD Nov 11, 2017 09:30
--- NOTE | 2017-11-11 09:58 | Urology Progress Note ---
Assessment/Plan Assessment/Plan 1. History of hydronephrosis that is chronic. 2. Renal insufficiency, acute on chronic, slowly improving. 3. Hematuria. 4. Pyuria. 5. Proteinuria. 6. Urinary retention with chronic suprapubic tube. 7. Neurogenic bladder. sp tube indwelling hand irrigated, patent abx as ordered monitor renal fxn need old recs Subjective Allergies: Coded Allergies: CEFEPIME (Unverified Allergy, Unknown, 11/09/17) Subjective all noted Objective Last 24 Hour Vital Signs Date Time Temp Pulse Resp B/P (MAP) Pulse Ox O2 Delivery O2 Flow Rate FiO2 11/11/17 08:00 Nasal Cannula 2.0 11/11/17 08:00 110 11/11/17 07:53 97.3 111 23 106/64 (78) 97 97.3 11/11/17 04:00 Nasal Cannula 3.0 11/11/17 04:00 97.6 108 26 102/73 (83) 99 97.6 11/11/17 03:54 108 11/11/17 00:00 97.6 87 20 100/67 (78) 98 97.6 11/11/17 00:00 Nasal Cannula 3.0 11/10/17 23:43 91 11/10/17 20:00 96.8 95 20 99/52 (68) 96 96.8 11/10/17 20:00 Nasal Cannula 3.0 11/10/17 19:06 101 11/10/17 16:00 Nasal Cannula 3.0 11/10/17 16:00 97.4 97 21 90/75 (80) 98 97.4 11/10/17 16:00 90 11/10/17 12:00 102 11/10/17 12:00 98.4 102 22 118/69 (85) 99 98.4 11/10/17 12:00 Nasal Cannula 3.0 Intake and Output 11/10/17 11/11/17 19:00 07:00 Intake Total 1390 ml 1230 ml Output Total 1000 ml 1100 ml Balance 390 ml 130 ml Intake IV Total 1390 ml 1230 ml Output Urine Total 1000 ml 1100 ml # Bowel Movements 2 Microbiology Date/Time Source Procedure Growth Status 11/09/17 13:20 Blood Blood Culture - Preliminary Staphylococcus Species Resulted 11/09/17 13:20 Nasal Nares MRSA Culture - Final Staphylococcus Aureus - Mrsa Complete 11/09/17 13:30 Urine,Clean Catch Urine Culture - Preliminary Providencia Stuartii Resulted 11/09/17 20:25 Rectum Received Current Medications Medications (Trade) Dose Ordered Sig/Tay Route PRN Reason Start Time Stop Time Status Last Admin Dose Admin Acetaminophen (Tylenol) 650 mg Q6H PRN ORAL Mild Pain/Temp > 101 11/09/17 21:30 12/09/17 21:29 Dextrose/ Electrolytes 1,000 ml @ 125 mls/hr Q8H IV 11/11/17 10:00 12/10/17 09:59 11/11/17 09:37 Docusate Sodium (Colace) 100 mg TID ORAL 11/10/17 13:00 12/10/17 08:59 Heparin Sodium (Porcine) (Heparin 5000 units/ml) 5,000 units EVERY 12 HOURS SUBQ 11/10/17 09:00 12/10/17 08:59 11/11/17 08:33 Levetiracetam 100 ml @ 400 mls/hr Q12HR IVPB 11/09/17 22:30 12/09/17 22:29 11/11/17 08:31 Magnesium Sulfate 100 ml @ 100 mls/hr Q1H IVPB 11/11/17 10:00 11/11/17 13:59 11/11/17 09:36 Meropenem 500 mg/ Sodium Chloride 55 ml @ 110 mls/hr Q12HR IVPB 11/10/17 21:00 11/15/17 20:59 11/11/17 09:02 Midodrine (Pro-Amatine) 5 mg THREE TIMES A DAY ORAL 11/10/17 09:00 12/10/17 08:59 Ondansetron HCl (Zofran) 4 mg Q4H PRN IVP Nausea & Vomiting 11/09/17 21:30 12/09/17 21:29 Pantoprazole (Protonix) 40 mg DAILY IVP 11/10/17 09:00 12/10/17 08:59 11/11/17 08:31 Potassium Phosphate 30 mm/ Sodium Chloride 285 ml @ 47.5 mls/hr ONCE IV 11/11/17 13:00 11/11/17 14:30 Sennosides (Senokot) 1 tab DAILY PRN ORAL Constipation 11/09/17 21:30 12/09/17 21:29 Laboratory Tests 11/11/17 04:00: White Blood Count 9.4#, Red Blood Count 4.20, Hemoglobin 12.2, Hematocrit 37.4, Mean Corpuscular Volume 89, Mean Corpuscular Hemoglobin 29.2, Mean Corpuscular Hemoglobin Concent 32.7, Red Cell Distribution Width 13.8, Platelet Count 184, Mean Platelet Volume 8.7, Neutrophils (%) (Auto) , Lymphocytes (%) (Auto) , Monocytes (%) (Auto) , Eosinophils (%) (Auto) , Basophils (%) (Auto) , Neutrophils % (Manual) [Pending], Lymphocytes % (Manual) [Pending], Platelet Estimate [Pending], Platelet Morphology [Pending], Sodium Level 165*H, Potassium Level 2.7*L, Chloride Level 136H, Carbon Dioxide Level 17L, Anion Gap 15, Blood Urea Nitrogen 45H, Creatinine 2.9H, Estimat Glomerular Filtration Rate 16.9, Glucose Level 149H, Lactic Acid Level 1.90, Uric Acid 8.5H, Calcium Level 8.6, Phosphorus Level 1.0L, Magnesium Level 1.4L, Iron Level 40L, Total Iron Binding Capacity 121L, Percent Iron Saturation 33, Unsaturated Iron Binding 81L, Ferritin 1500H, Total Bilirubin 0.5, Aspartate Amino Transf (AST/ SGOT) 25, Alanine Aminotransferase (ALT/SGPT) 17, Alkaline Phosphatase 128H, Troponin I 0.030, Pro-B-Type Natriuretic Peptide 2207H, Total Protein 7.5, Albumin 2.3L, Globulin 5.2, Albumin/Globulin Ratio 0.4L, Vitamin B12 Level 1045H , Folate 11.4, Thyroid Stimulating Hormone (TSH) 2.391 Height (Feet): 5 Height (Inches): 2.00 Weight (Pounds): 129 Objective exam stable WILBER GALINDO Nov 11, 2017 09:58
[2017-11-11 11:35] VITALS: BP 104/66
--- NOTE | 2017-11-11 12:01 | Nephrology Progress Note ---
Assessment/Plan Problem List: (1) Acute renal failure (ARF) (2) Dehydration with hypernatremia (3) Severe sepsis (4) Shock (5) Dehydration, severe Assessment Acute kidney injury, likely on chronic kidney disease. Hypernatremia, with an initial sodium of 177. Profound dehydration. Shock, likely septic. Hypercalcemia. on presentation Urinary tract infection. Has supraPubic cath History of traumatic brain injury, dementia, and seizure disorder. History of staghorn renal calculi with multiple UTIs, status post Plan D5W KCL, Mag , Phos Antibiotics Anemia yarbrough Monitor renal parameters- Avoid Nephrotoxics Subjective ROS Limited/Unobtainable: Yes Objective Objective Last 24 Hour Vital Signs Date Time Temp Pulse Resp B/P (MAP) Pulse Ox O2 Delivery O2 Flow Rate FiO2 11/11/17 11:35 97.2 106 24 104/66 (79) 98 97.2 11/11/17 08:00 Nasal Cannula 2.0 11/11/17 08:00 110 11/11/17 07:53 97.3 111 23 106/64 (78) 97 97.3 11/11/17 04:00 Nasal Cannula 3.0 11/11/17 04:00 97.6 108 26 102/73 (83) 99 97.6 11/11/17 03:54 108 11/11/17 00:00 97.6 87 20 100/67 (78) 98 97.6 11/11/17 00:00 Nasal Cannula 3.0 11/10/17 23:43 91 11/10/17 20:00 96.8 95 20 99/52 (68) 96 96.8 11/10/17 20:00 Nasal Cannula 3.0 11/10/17 19:06 101 11/10/17 16:00 Nasal Cannula 3.0 11/10/17 16:00 97.4 97 21 90/75 (80) 98 97.4 11/10/17 16:00 90 11/10/17 12:00 102 11/10/17 12:00 98.4 102 22 118/69 (85) 99 98.4 11/10/17 12:00 Nasal Cannula 3.0 Intake and Output 11/10/17 11/11/17 19:00 07:00 Intake Total 1390 ml 1230 ml Output Total 1000 ml 1100 ml Balance 390 ml 130 ml Intake IV Total 1390 ml 1230 ml Output Urine Total 1000 ml 1100 ml # Bowel Movements 2 Laboratory Tests 11/11/17 04:00: White Blood Count 9.4#, Red Blood Count 4.20, Hemoglobin 12.2, Hematocrit 37.4, Mean Corpuscular Volume 89, Mean Corpuscular Hemoglobin 29.2, Mean Corpuscular Hemoglobin Concent 32.7, Red Cell Distribution Width 13.8, Platelet Count 184, Mean Platelet Volume 8.7, Neutrophils (%) (Auto) , Lymphocytes (%) (Auto) , Monocytes (%) (Auto) , Eosinophils (%) (Auto) , Basophils (%) (Auto) , Differential Total Cells Counted 100, Neutrophils % (Manual) 36L, Lymphocytes % (Manual) 12L, Monocytes % (Manual) 4, Eosinophils % (Manual) 2, Basophils % ( Manual) 0, Band Neutrophils 46H, Platelet Estimate Adequate, Platelet Morphology Normal, Red Blood Cell Morphology Normal, Sodium Level 165*H, Potassium Level 2.7*L, Chloride Level 136H, Carbon Dioxide Level 17L, Anion Gap 15, Blood Urea Nitrogen 45H, Creatinine 2.9H, Estimat Glomerular Filtration Rate 16.9, Glucose Level 149H, Lactic Acid Level 1.90, Uric Acid 8.5H, Calcium Level 8.6, Phosphorus Level 1.0L, Magnesium Level 1.4L, Iron Level 40L, Total Iron Binding Capacity 121L, Percent Iron Saturation 33, Unsaturated Iron Binding 81L, Ferritin 1500H, Total Bilirubin 0.5, Aspartate Amino Transf (AST/ SGOT) 25, Alanine Aminotransferase (ALT/SGPT) 17, Alkaline Phosphatase 128H, Troponin I 0.030, Pro-B-Type Natriuretic Peptide 2207H, Total Protein 7.5, Albumin 2.3L, Globulin 5.2, Albumin/Globulin Ratio 0.4L, Vitamin B12 Level 1045H , Folate 11.4, Thyroid Stimulating Hormone (TSH) 2.391 Height (Feet): 5 Height (Inches): 2.00 Weight (Pounds): 129 General Appearance: no apparent distress, lethargic Cardiovascular: tachycardia Respiratory/Chest: decreased breath sounds Abdomen: distended Parrish Luo MD Nov 11, 2017 12:01
[2017-11-11] MEDS ORDERED: Potassium Phosphate 30 MM in NS 275 ML IV SCH (13:00)
--- NOTE | 2017-11-11 15:00 | GI Initial Consult Note ---
History of Present Illness General Reason for Hospitalization: Dyspnea/Respdistress Present Illness Home Meds Reported Medications Sennosides (SENNA) 8.6 Mg Tablet, 8.6 MG PO QHS PRN for Constipation, TAB 11/09/17 Ondansetron* (ZOFRAN*) 4 Mg Tablet, 4 MG ORAL Q6H PRN for Nausea & Vomiting, TAB 11/09/17 Acetaminophen* (ACETAMINOPHEN 325MG TABLET*) 325 Mg Tablet, 650 MG ORAL Q4H PRN for Fever/Headache/Mild Pain, TAB 11/09/17 Pantoprazole* (PROTONIX*) 40 Mg Tablet.dr, 40 MG ORAL DAILY for GERD, TAB 11/09/17 Multivitamin With Minerals (MULTIVITAMINS WITH MINERALS*) 1 Each Tablet, 1 TAB ORAL DAILY for supplement, TAB 11/09/17 Midodrine* (PROAMATINE*) 5 Mg Tablet, 15 MG ORAL BID for raise BP, TAB 11/09/17 Levetiracetam* (LEVETIRACETAM*) 500 Mg Tablet, 500 MG ORAL TWICE A DAY for seizure, TAB 11/09/17 [hydrocortisone 1% cr] No Conflict Check, 1 % TOPIC DAILY for skin rash 11/09/17 Saccharomyces Boulardii (FLORASTOR*) 250 Mg Capsule, 250 MG ORAL TID for probiotic supplement, CAP 11/09/17 Docusate Sodium* (DOCUSATE SODIUM*) 100 Mg Capsule, 200 MG ORAL Q8HR PRN for Constipation, CAP 11/09/17 Cranberry Extract (CRANBERRY) 425 Mg Capsule, 425 MG PO BID for UTI prophylaxis , CAP 11/09/17 Discontinued Reported Medications Lorazepam* (ATIVAN*) 1 Mg Tablet, 1 MG PO Q3HR, #10 TAB 03/08/12 Sennosides (Senna-Gen) 1 Tab Tab, 2 TAB PO DAILY 03/08/12 Phenytoin Sodium Extended* (DILANTIN*) 100 Mg Capsule, 100 MG PO DAILY, #21 CAP 03/08/12 Loperamide HCl (Loperamide) 2 Mg Cap, 2 MG PO Q6HR, #20 CAP Take 1 capsule by mouth every 4 hours as needed for diarrhea. 03/08/12 Ferrous Sulfate (IRON) 325 Mg Tablet, 325 MG PO DAILY 03/08/12 Esomeprazole Magnesium (NEXIUM) 40 Mg Capsule.dr, 40 MG PO DAILY, #10 CAP Take 1 tablet by mouth every day. 03/08/12 Docusate Sodium* (COLACE*) 100 Mg Capsule, 200 MG PO BID, #10 CAP 03/08/12 Diphenhydramine Hcl* (BENADRYL*) 25 Mg Capsule, 25 MG PO Q6H PRN, #15 CAP 03/08/12 Acetaminophen/Codeine 300MG/30MG* (TYLENOL #3*) 1 Tab Tab, 1 TAB PO Q6H PRN, # 15 TAB 03/08/12 Acetaminophen* (TYLENOL*) 650 Mg/20.3 Ml Oral.susp, 650 MG PO Q6HR PRN 03/08/12 Phenytoin Sodium Extended* (DILANTIN*) 100 Mg Capsule, 100 MG PO TID, #21 CAP 03/08/12 Allergies: Coded Allergies: CEFEPIME (Unverified Allergy, Unknown, 11/09/17) Physical Exam Vital Signs Date Time Temp Pulse Resp B/P (MAP) Pulse Ox O2 Delivery O2 Flow Rate FiO2 11/09/17 13:00 96.2 122 28 98/78 97 Simple Mask 10.0 96.3 Labs Laboratory Tests Test 11/11/17 04:00 White Blood Count 9.4 K/UL (4.8-10.8) # Red Blood Count 4.20 M/UL (4.20-5.40) Hemoglobin 12.2 G/DL (12.0-16.0) Hematocrit 37.4 % (37.0-47.0) Mean Corpuscular Volume 89 FL (80-99) Mean Corpuscular Hemoglobin 29.2 PG (27.0-31.0) Mean Corpuscular Hemoglobin Concent 32.7 G/DL (32.0-36.0) Red Cell Distribution Width 13.8 % (11.6-14.8) Platelet Count 184 K/UL (150-450) Mean Platelet Volume 8.7 FL (6.5-10.1) Neutrophils (%) (Auto) % (45.0-75.0) Lymphocytes (%) (Auto) % (20.0-45.0) Monocytes (%) (Auto) % (1.0-10.0) Eosinophils (%) (Auto) % (0.0-3.0) Basophils (%) (Auto) % (0.0-2.0) Differential Total Cells Counted 100 Neutrophils % (Manual) 36 % (45-75) L Lymphocytes % (Manual) 12 % (20-45) L Monocytes % (Manual) 4 % (1-10) Eosinophils % (Manual) 2 % (0-3) Basophils % (Manual) 0 % (0-2) Band Neutrophils 46 % (0-8) H Platelet Estimate Adequate Platelet Morphology Normal Red Blood Cell Morphology Normal Sodium Level 165 MMOL/L (136-145) *H Potassium Level 2.7 MMOL/L (3.5-5.1) *L Chloride Level 136 MMOL/L (98-107) H Carbon Dioxide Level 17 MMOL/L (21-32) L Anion Gap 15 mmol/L (5-15) Blood Urea Nitrogen 45 mg/dL (7-18) H Creatinine 2.9 MG/DL (0.55-1.30) H Estimat Glomerular Filtration Rate 16.9 mL/min (>60) Glucose Level 149 MG/DL (74-106) H Lactic Acid Level 1.90 mmol/L (0.4-2.0) Uric Acid 8.5 MG/DL (2.6-7.2) H Calcium Level 8.6 MG/DL (8.5-10.1) Phosphorus Level 1.0 MG/DL (2.5-4.9) L Magnesium Level 1.4 MG/DL (1.8-2.4) L Iron Level 40 ug/dL (50-175) L Total Iron Binding Capacity 121 ug/dL (250-450) L Percent Iron Saturation 33 % (15-50) Unsaturated Iron Binding 81 ug/dL (112-346) L Ferritin 1500 NG/ML (8-388) H Total Bilirubin 0.5 MG/DL (0.2-1.0) Aspartate Amino Transf (AST/SGOT) 25 U/L (15-37) Alanine Aminotransferase (ALT/SGPT) 17 U/L (12-78) Alkaline Phosphatase 128 U/L (46-116) H Troponin I 0.030 ng/mL (0.000-0.056) Pro-B-Type Natriuretic Peptide 2207 pg/mL (0-125) H Total Protein 7.5 G/DL (6.4-8.2) Albumin 2.3 G/DL (3.4-5.0) L Globulin 5.2 g/dL Albumin/Globulin Ratio 0.4 (1.0-2.7) L Vitamin B12 Level 1045 PG/ML (193-986) H Folate 11.4 NG/ML (8.6-58.9) Thyroid Stimulating Hormone (TSH) 2.391 uiU/mL (0.358-3.740) Current Medications Current Medications Medications (Trade) Dose Ordered Sig/Tay Route PRN Reason Start Time Stop Time Status Last Admin Dose Admin Acetaminophen (Tylenol) 650 mg Q6H PRN ORAL Mild Pain/Temp > 101 11/09/17 21:30 12/09/17 21:29 Dextrose/ Electrolytes 1,000 ml @ 125 mls/hr Q8H IV 11/11/17 10:00 12/10/17 09:59 11/11/17 09:37 Docusate Sodium (Colace) 100 mg TID ORAL 11/10/17 13:00 12/10/17 08:59 Ertapenem 0.5 gm/ Sodium Chloride 55 ml @ 110 mls/hr Q24H IVPB 11/11/17 20:00 11/16/17 19:59 Heparin Sodium (Porcine) (Heparin 5000 units/ml) 5,000 units EVERY 12 HOURS SUBQ 11/10/17 09:00 12/10/17 08:59 11/11/17 08:33 Levetiracetam 100 ml @ 400 mls/hr Q12HR IVPB 11/09/17 22:30 12/09/17 22:29 11/11/17 08:31 Midodrine (Pro-Amatine) 5 mg THREE TIMES A DAY ORAL 11/10/17 09:00 12/10/17 08:59 Ondansetron HCl (Zofran) 4 mg Q4H PRN IVP Nausea & Vomiting 11/09/17 21:30 12/09/17 21:29 Pantoprazole (Protonix) 40 mg DAILY IVP 11/10/17 09:00 12/10/17 08:59 11/11/17 08:31 Sennosides (Senokot) 1 tab DAILY PRN ORAL Constipation 11/09/17 21:30 12/09/17 21:29 GI: Plan Plan POLST reviewed >> no artificial feedings will contact the son regarding this matter will follow with complete note Olivia Lubin NP Nov 11, 2017 15:00
--- NOTE | 2017-11-11 15:31 | Infectious Diseases Prog Note ---
Assessment/Plan Problems: (1) Acute pyelonephritis Assessment & Plan: with MDR Providencia stuartii, suspect due to right ureter stent obstruction, will switch meropenem to ertapenem and treat for two weeks total , urology eval is in progress , renal US is pending (2) Hydronephrosis of right kidney Assessment & Plan: suspect ureter stent malfunction , will order renal US, recommend urology eval (3) Severe sepsis Assessment & Plan: with gram positive cocci from one set, possible contamination , continue ertapenem pending blood culture (4) Renal failure Assessment & Plan: continue hydration , monitor renal function, consult renal (5) Hypernatremia Assessment & Plan: due to free water loss , continue hydration with close monitor of serum sodium (6) Left shoulder pain Assessment & Plan: due to chronic rotator cuff syndrom, as evident by X ray , folllow up with ortho (7) Colonization with VRE (vancomycin-resistant enterococcus) Assessment & Plan: keep in contact isolation Subjective ROS Limited/Unobtainable: Yes Allergies: Coded Allergies: CEFEPIME (Unverified Allergy, Unknown, 11/09/17) Subjective she was up in bed, awake, and alert, doesn't follow commands, lethargic, a febrile Objective Vital Signs Last 24 Hour Vital Signs Date Time Temp Pulse Resp B/P (MAP) Pulse Ox O2 Delivery O2 Flow Rate FiO2 11/11/17 12:00 Nasal Cannula 3.0 11/11/17 12:00 108 11/11/17 11:35 97.2 106 24 104/66 (79) 98 97.2 11/11/17 08:00 Nasal Cannula 3.0 11/11/17 08:00 110 11/11/17 07:53 97.3 111 23 106/64 (78) 97 97.3 11/11/17 04:00 Nasal Cannula 3.0 11/11/17 04:00 97.6 108 26 102/73 (83) 99 97.6 11/11/17 03:54 108 11/11/17 00:00 97.6 87 20 100/67 (78) 98 97.6 11/11/17 00:00 Nasal Cannula 3.0 11/10/17 23:43 91 11/10/17 20:00 96.8 95 20 99/52 (68) 96 96.8 11/10/17 20:00 Nasal Cannula 3.0 11/10/17 19:06 101 11/10/17 16:00 Nasal Cannula 3.0 11/10/17 16:00 97.4 97 21 90/75 (80) 98 97.4 11/10/17 16:00 90 Height (Feet): 5 Height (Inches): 2.00 Weight (Pounds): 129 General Appearance: WD/WN, no acute distress HEENT: normocephalic, atraumatic, anicteric, mucous membranes moist, PERRL Respiratory/Chest: chest wall non-tender, lungs clear, normal breath sounds, no respiratory distress, no accessory muscle use Cardiovascular: normal peripheral pulses, normal rate, regular rhythm, no gallop/murmur, no JVD Abdomen: normal bowel sounds, soft, non tender, no organomegaly, non distended , no mass, no scars Extremities: no cyanosis, no clubbing Skin: no rash, no lesions, no ulcers Neurologic/Psychiatric: alert, oriented x 3 Lymphatic: no neck adenopathy, no groin adenopathy Microbiology Date/Time Source Procedure Growth Status 11/09/17 13:20 Blood Blood Culture - Preliminary Staphylococcus Species Resulted 11/09/17 13:08 Blood Blood Culture - Preliminary NO GROWTH AFTER 24 HOURS Resulted 11/09/17 13:20 Nasal Nares MRSA Culture - Final Staphylococcus Aureus - Mrsa Complete 11/09/17 13:30 Urine,Clean Catch Urine Culture - Preliminary Providencia Stuartii Resulted 11/09/17 20:25 Rectum Received 11/09/17 13:20 Rectum VRE Culture - Final Enterococcus Faecalis - Vre Complete 11/09/17 13:20 Rectum - Final NO CARBAPENEM-RESISTANT ENTEROBACTERI... Complete Laboratory Tests Test 11/11/17 04:00 White Blood Count 9.4 K/UL (4.8-10.8) # Red Blood Count 4.20 M/UL (4.20-5.40) Hemoglobin 12.2 G/DL (12.0-16.0) Hematocrit 37.4 % (37.0-47.0) Mean Corpuscular Volume 89 FL (80-99) Mean Corpuscular Hemoglobin 29.2 PG (27.0-31.0) Mean Corpuscular Hemoglobin Concent 32.7 G/DL (32.0-36.0) Red Cell Distribution Width 13.8 % (11.6-14.8) Platelet Count 184 K/UL (150-450) Mean Platelet Volume 8.7 FL (6.5-10.1) Neutrophils (%) (Auto) % (45.0-75.0) Lymphocytes (%) (Auto) % (20.0-45.0) Monocytes (%) (Auto) % (1.0-10.0) Eosinophils (%) (Auto) % (0.0-3.0) Basophils (%) (Auto) % (0.0-2.0) Differential Total Cells Counted 100 Neutrophils % (Manual) 36 % (45-75) L Lymphocytes % (Manual) 12 % (20-45) L Monocytes % (Manual) 4 % (1-10) Eosinophils % (Manual) 2 % (0-3) Basophils % (Manual) 0 % (0-2) Band Neutrophils 46 % (0-8) H Platelet Estimate Adequate Platelet Morphology Normal Red Blood Cell Morphology Normal Sodium Level 165 MMOL/L (136-145) *H Potassium Level 2.7 MMOL/L (3.5-5.1) *L Chloride Level 136 MMOL/L (98-107) H Carbon Dioxide Level 17 MMOL/L (21-32) L Anion Gap 15 mmol/L (5-15) Blood Urea Nitrogen 45 mg/dL (7-18) H Creatinine 2.9 MG/DL (0.55-1.30) H Estimat Glomerular Filtration Rate 16.9 mL/min (>60) Glucose Level 149 MG/DL (74-106) H Lactic Acid Level 1.90 mmol/L (0.4-2.0) Uric Acid 8.5 MG/DL (2.6-7.2) H Calcium Level 8.6 MG/DL (8.5-10.1) Phosphorus Level 1.0 MG/DL (2.5-4.9) L Magnesium Level 1.4 MG/DL (1.8-2.4) L Iron Level 40 ug/dL (50-175) L Total Iron Binding Capacity 121 ug/dL (250-450) L Percent Iron Saturation 33 % (15-50) Unsaturated Iron Binding 81 ug/dL (112-346) L Ferritin 1500 NG/ML (8-388) H Total Bilirubin 0.5 MG/DL (0.2-1.0) Aspartate Amino Transf (AST/SGOT) 25 U/L (15-37) Alanine Aminotransferase (ALT/SGPT) 17 U/L (12-78) Alkaline Phosphatase 128 U/L (46-116) H Troponin I 0.030 ng/mL (0.000-0.056) Pro-B-Type Natriuretic Peptide 2207 pg/mL (0-125) H Total Protein 7.5 G/DL (6.4-8.2) Albumin 2.3 G/DL (3.4-5.0) L Globulin 5.2 g/dL Albumin/Globulin Ratio 0.4 (1.0-2.7) L Vitamin B12 Level 1045 PG/ML (193-986) H Folate 11.4 NG/ML (8.6-58.9) Thyroid Stimulating Hormone (TSH) 2.391 uiU/mL (0.358-3.740) Current Medications Medications (Trade) Dose Ordered Sig/Tay Route PRN Reason Start Time Stop Time Status Last Admin Dose Admin Acetaminophen (Tylenol) 650 mg Q6H PRN ORAL Mild Pain/Temp > 101 11/09/17 21:30 12/09/17 21:29 Dextrose/ Electrolytes 1,000 ml @ 125 mls/hr Q8H IV 11/11/17 10:00 12/10/17 09:59 11/11/17 09:37 Docusate Sodium (Colace) 100 mg TID ORAL 11/10/17 13:00 12/10/17 08:59 Ertapenem 0.5 gm/ Sodium Chloride 55 ml @ 110 mls/hr Q24H IVPB 11/11/17 20:00 11/16/17 19:59 Heparin Sodium (Porcine) (Heparin 5000 units/ml) 5,000 units EVERY 12 HOURS SUBQ 11/10/17 09:00 12/10/17 08:59 11/11/17 08:33 Levetiracetam 100 ml @ 400 mls/hr Q12HR IVPB 11/09/17 22:30 12/09/17 22:29 11/11/17 08:31 Midodrine (Pro-Amatine) 5 mg THREE TIMES A DAY ORAL 11/10/17 09:00 12/10/17 08:59 Ondansetron HCl (Zofran) 4 mg Q4H PRN IVP Nausea & Vomiting 11/09/17 21:30 12/09/17 21:29 Pantoprazole (Protonix) 40 mg DAILY IVP 11/10/17 09:00 12/10/17 08:59 11/11/17 08:31 Sennosides (Senokot) 1 tab DAILY PRN ORAL Constipation 11/09/17 21:30 12/09/17 21:29 Kortney Quiñones M.D. Nov 11, 2017 15:31
[2017-11-11 15:49] VITALS: BP 97/61
--- NOTE | 2017-11-11 16:28 | GI Initial Consult Note ---
History of Present Illness General Date patient seen: Nov 11, 2017 Time patient seen: 16:19 Reason for Hospitalization: Dyspnea/Respdistress Referring physician: KAREN LATHAM Reason for Consultation: PEG EVALUATION Present Illness HPI Patient is a 52-year-old female brought in by EMS after a decreased oxygen saturation. Patient was noted to have a prior history of tracheostomy. Tracheostomy had been removed. Patient was noted to be chronically debilitated. She was the sent in for increased difficulty breathing. GI consulted for PEG evaluation. ROS limited, pt seen NAD, no active s/sx of N/ V/D on NC unable to communicate at this time. All information obtained from chart. The patient presents today with dyspnea, her labs were reviewed to show severe electrolyte imbalance. No anemia. No leukocytosis. Unknown history of endoscopy / colonoscopy. Home Meds Reported Medications Sennosides (SENNA) 8.6 Mg Tablet, 8.6 MG PO QHS PRN for Constipation, TAB 11/09/17 Ondansetron* (ZOFRAN*) 4 Mg Tablet, 4 MG ORAL Q6H PRN for Nausea & Vomiting, TAB 11/09/17 Acetaminophen* (ACETAMINOPHEN 325MG TABLET*) 325 Mg Tablet, 650 MG ORAL Q4H PRN for Fever/Headache/Mild Pain, TAB 11/09/17 Pantoprazole* (PROTONIX*) 40 Mg Tablet.dr, 40 MG ORAL DAILY for GERD, TAB 11/09/17 Multivitamin With Minerals (MULTIVITAMINS WITH MINERALS*) 1 Each Tablet, 1 TAB ORAL DAILY for supplement, TAB 11/09/17 Midodrine* (PROAMATINE*) 5 Mg Tablet, 15 MG ORAL BID for raise BP, TAB 11/09/17 Levetiracetam* (LEVETIRACETAM*) 500 Mg Tablet, 500 MG ORAL TWICE A DAY for seizure, TAB 11/09/17 [hydrocortisone 1% cr] No Conflict Check, 1 % TOPIC DAILY for skin rash 11/09/17 Saccharomyces Boulardii (FLORASTOR*) 250 Mg Capsule, 250 MG ORAL TID for probiotic supplement, CAP 11/09/17 Docusate Sodium* (DOCUSATE SODIUM*) 100 Mg Capsule, 200 MG ORAL Q8HR PRN for Constipation, CAP 11/09/17 Cranberry Extract (CRANBERRY) 425 Mg Capsule, 425 MG PO BID for UTI prophylaxis , CAP 11/09/17 Discontinued Reported Medications Lorazepam* (ATIVAN*) 1 Mg Tablet, 1 MG PO Q3HR, #10 TAB 03/08/12 Sennosides (Senna-Gen) 1 Tab Tab, 2 TAB PO DAILY 03/08/12 Phenytoin Sodium Extended* (DILANTIN*) 100 Mg Capsule, 100 MG PO DAILY, #21 CAP 03/08/12 Loperamide HCl (Loperamide) 2 Mg Cap, 2 MG PO Q6HR, #20 CAP Take 1 capsule by mouth every 4 hours as needed for diarrhea. 03/08/12 Ferrous Sulfate (IRON) 325 Mg Tablet, 325 MG PO DAILY 03/08/12 Esomeprazole Magnesium (NEXIUM) 40 Mg Capsule.dr, 40 MG PO DAILY, #10 CAP Take 1 tablet by mouth every day. 03/08/12 Docusate Sodium* (COLACE*) 100 Mg Capsule, 200 MG PO BID, #10 CAP 03/08/12 Diphenhydramine Hcl* (BENADRYL*) 25 Mg Capsule, 25 MG PO Q6H PRN, #15 CAP 03/08/12 Acetaminophen/Codeine 300MG/30MG* (TYLENOL #3*) 1 Tab Tab, 1 TAB PO Q6H PRN, # 15 TAB 03/08/12 Acetaminophen* (TYLENOL*) 650 Mg/20.3 Ml Oral.susp, 650 MG PO Q6HR PRN 03/08/12 Phenytoin Sodium Extended* (DILANTIN*) 100 Mg Capsule, 100 MG PO TID, #21 CAP 03/08/12 Med list reviewed/reconciled: Yes Allergies: Coded Allergies: CEFEPIME (Unverified Allergy, Unknown, 11/09/17) Patient History Limited by: medical condition History Provided By: Medical Record PMH Narrative Hx Cardiac Problems: Yes - CHF Hx Neurological Problems: Yes - HYDROCEPHALUS Hx Seizures: Yes Review of Systems All Other Systems: limited Physical Exam Vital Signs Date Time Temp Pulse Resp B/P (MAP) Pulse Ox O2 Delivery O2 Flow Rate FiO2 11/09/17 13:00 96.2 122 28 98/78 97 Simple Mask 10.0 96.3 Sp02 EP Interpretation: reviewed Labs Laboratory Tests Test 11/11/17 04:00 White Blood Count 9.4 K/UL (4.8-10.8) # Red Blood Count 4.20 M/UL (4.20-5.40) Hemoglobin 12.2 G/DL (12.0-16.0) Hematocrit 37.4 % (37.0-47.0) Mean Corpuscular Volume 89 FL (80-99) Mean Corpuscular Hemoglobin 29.2 PG (27.0-31.0) Mean Corpuscular Hemoglobin Concent 32.7 G/DL (32.0-36.0) Red Cell Distribution Width 13.8 % (11.6-14.8) Platelet Count 184 K/UL (150-450) Mean Platelet Volume 8.7 FL (6.5-10.1) Neutrophils (%) (Auto) % (45.0-75.0) Lymphocytes (%) (Auto) % (20.0-45.0) Monocytes (%) (Auto) % (1.0-10.0) Eosinophils (%) (Auto) % (0.0-3.0) Basophils (%) (Auto) % (0.0-2.0) Differential Total Cells Counted 100 Neutrophils % (Manual) 36 % (45-75) L Lymphocytes % (Manual) 12 % (20-45) L Monocytes % (Manual) 4 % (1-10) Eosinophils % (Manual) 2 % (0-3) Basophils % (Manual) 0 % (0-2) Band Neutrophils 46 % (0-8) H Platelet Estimate Adequate Platelet Morphology Normal Red Blood Cell Morphology Normal Sodium Level 165 MMOL/L (136-145) *H Potassium Level 2.7 MMOL/L (3.5-5.1) *L Chloride Level 136 MMOL/L (98-107) H Carbon Dioxide Level 17 MMOL/L (21-32) L Anion Gap 15 mmol/L (5-15) Blood Urea Nitrogen 45 mg/dL (7-18) H Creatinine 2.9 MG/DL (0.55-1.30) H Estimat Glomerular Filtration Rate 16.9 mL/min (>60) Glucose Level 149 MG/DL (74-106) H Lactic Acid Level 1.90 mmol/L (0.4-2.0) Uric Acid 8.5 MG/DL (2.6-7.2) H Calcium Level 8.6 MG/DL (8.5-10.1) Phosphorus Level 1.0 MG/DL (2.5-4.9) L Magnesium Level 1.4 MG/DL (1.8-2.4) L Iron Level 40 ug/dL (50-175) L Total Iron Binding Capacity 121 ug/dL (250-450) L Percent Iron Saturation 33 % (15-50) Unsaturated Iron Binding 81 ug/dL (112-346) L Ferritin 1500 NG/ML (8-388) H Total Bilirubin 0.5 MG/DL (0.2-1.0) Aspartate Amino Transf (AST/SGOT) 25 U/L (15-37) Alanine Aminotransferase (ALT/SGPT) 17 U/L (12-78) Alkaline Phosphatase 128 U/L (46-116) H Troponin I 0.030 ng/mL (0.000-0.056) Pro-B-Type Natriuretic Peptide 2207 pg/mL (0-125) H Total Protein 7.5 G/DL (6.4-8.2) Albumin 2.3 G/DL (3.4-5.0) L Globulin 5.2 g/dL Albumin/Globulin Ratio 0.4 (1.0-2.7) L Vitamin B12 Level 1045 PG/ML (193-986) H Folate 11.4 NG/ML (8.6-58.9) Thyroid Stimulating Hormone (TSH) 2.391 uiU/mL (0.358-3.740) General Appearance: no apparent distress Head: normocephalic Neck: supple Respiratory: other - dyspnea Cardiovascular: normal rate Gastrointestinal: non tender, soft Rectal: deferred Genitourinary: no CVA tenderness Musculoskeletal: back normal Skin: normal inspection, normal color, no rash, warm/dry Lymphatic: normal inspection, no adenopathy Current Medications Current Medications Medications (Trade) Dose Ordered Sig/Tay Route PRN Reason Start Time Stop Time Status Last Admin Dose Admin Acetaminophen (Tylenol) 650 mg Q6H PRN ORAL Mild Pain/Temp > 101 11/09/17 21:30 12/09/17 21:29 Dextrose/ Electrolytes 1,000 ml @ 125 mls/hr Q8H IV 11/11/17 10:00 12/10/17 09:59 11/11/17 15:31 Docusate Sodium (Colace) 100 mg TID ORAL 11/10/17 13:00 12/10/17 08:59 Ertapenem 0.5 gm/ Sodium Chloride 55 ml @ 110 mls/hr Q24H IVPB 11/11/17 20:00 11/16/17 19:59 Heparin Sodium (Porcine) (Heparin 5000 units/ml) 5,000 units EVERY 12 HOURS SUBQ 11/10/17 09:00 12/10/17 08:59 11/11/17 08:33 Levetiracetam 100 ml @ 400 mls/hr Q12HR IVPB 11/09/17 22:30 12/09/17 22:29 11/11/17 08:31 Midodrine (Pro-Amatine) 5 mg THREE TIMES A DAY ORAL 11/10/17 09:00 12/10/17 08:59 Ondansetron HCl (Zofran) 4 mg Q4H PRN IVP Nausea & Vomiting 11/09/17 21:30 12/09/17 21:29 Pantoprazole (Protonix) 40 mg DAILY IVP 11/10/17 09:00 12/10/17 08:59 11/11/17 08:31 Sennosides (Senokot) 1 tab DAILY PRN ORAL Constipation 11/09/17 21:30 12/09/17 21:29 GI: Plan Problems: (1) Encounter for PEG (percutaneous endoscopic gastrostomy) (2) Electrolyte imbalance (3) Dehydration (4) Acute renal failure (ARF) (5) Dehydration, severe (6) Renal failure Plan POLST reviewed >> No artificial feedings. we will contact the son in regards to this issue and follow with additional recs NGTF vs PEG to be scheduled if family agrees ST evaluation not completed because patient is unable to participate. maintain NPO + IVFs electrolyte correction per Nephro ppi bowel regime fu labs Discussed with Dr. Chan. Thank you for this patient referral, we will follow. The patient was seen and examined at bedside and all new and available data was reviewed in the patients chart. I agree with the above findings, impression and plan. (Patient seen earlier today. Signature stamp does not reflect patient encounter time.). - MD Amee Locke,[employer] Nov 11, 2017 16:28
[2017-11-11 20:00] VITALS: BP 95/53
[2017-11-11] MEDS: Ertapenem 0.5 GM in NS 55 ML IVPB SCH (20:03)
--- NOTE | 2017-11-11 20:59 | Cardiology Report ---
APPROVED REPORT EXAM: Two-dimensional and M-mode echocardiogram with Doppler and color Doppler. INDICATION SHORTNESS OF BREATH M-Mode DIMENSIONS IVSd0.8 (0.7-1.1cm)Left Atrium (MM)3.0 (1.6-4.0cm) LVDd3.6 (3.5-5.6cm)Aortic Root3.4 (2.0-3.7cm) PWd0.9 (0.7-1.1cm)Aortic Cusp Exc.1.7 (1.5-2.0cm) IVSs1.3 cm LVDs2.6 (2.5-4.0cm) PWs1.2 cm Normal left ventricular chamber size, systolic function and wall motion as well visualized Left ventricular ejection fraction estimated to be 55-60%. No evidence of left ventricular hypertrophy . No evidence of pericardial effusion. All other cardiac chamber sizes are within normal limits. Focal aortic valve sclerosis with adequate cusp excursion. Thickened mitral valve leaflets with normal excursion. Mitral annulus and aortic root calcification. Pulmonic valve not well visualized. Normal tricuspid valve structure. IVC at normal size with physiologic collapse. A color flow and spectral Doppler study was performed and revealed: No aortic regurgitation. Trace mitral regurgitation. Normal Left ventricular diastolic function . Tricuspid systolic velocities suggests peak right ventricular systolic pressure of 10mmHg. No pulmonic regurgitation .
--- NOTE | 2017-11-11 21:30 | Cardiology Report ---
APPROVED REPORT EKG Measurement Heart [id number] Sinus tachycardia Left axis deviation Pulmonary disease pattern Abnormal ECG
[2017-11-12] VITALS: BP 92/56
[2017-11-12] MEDS: D5W w/KCl 20mEq 1,000 ML IV SCH ×3 (00:44→22:00)
[2017-11-12 04:00] VITALS: BP 94/58
[2017-11-12 04:31] LABS: BASOPHILS % (AUTO) 0.4 % (0.0-2.0); EOSINOPHILS % (AUTO) 1.5 % (0.0-3.0); HEMATOCRIT 31.6 % (37.0-47.0); HEMOGLOBIN 10.4 G/DL (12.0-16.0); LYMPHOCYTES % (AUTO) 13.1 % (20.0-45.0); MEAN CORPUSCULAR VOLUME 88 FL (80-99); MONOCYTES % (AUTO) 3.8 % (1.0-10.0); NEUTROPHILS % (AUTO) 81.2 % (45.0-75.0); PLATELET COUNT 146 K/UL (150-450); RED CELL DISTRIBUTION WIDTH 13.7 % (11.6-14.8); WHITE BLOOD COUNT 9.9 K/UL (4.8-10.8)
[2017-11-12 04:36] LABS: ALANINE AMINOTRANSFERASE 14 U/L (12-78); ALBUMIN 1.9 G/DL (3.4-5.0); ALBUMIN/GLOBULIN RATIO 0.4 (1.0-2.7); ALKALINE PHOSPHATASE 127 U/L (46-116); ANION GAP 12 mmol/L (5-15); ASPARTATE AMINO TRANSFERASE 30 U/L (15-37); BILIRUBIN,TOTAL 0.3 MG/DL (0.2-1.0); BLOOD UREA NITROGEN 30 mg/dL (7-18); CALCIUM 7.5 MG/DL (8.5-10.1); CARBON DIOXIDE 17 MMOL/L (21-32); CHLORIDE 124 MMOL/L (98-107); CREATININE 2.2 MG/DL (0.55-1.30); PHOSPHORUS 3.9 MG/DL (2.5-4.9); POTASSIUM 3.4 MMOL/L (3.5-5.1); SODIUM 153 MMOL/L (136-145)
--- NOTE | 2017-11-12 07:49 | Urology Progress Note ---
Assessment/Plan Assessment/Plan 1. History of hydronephrosis that is chronic. 2. Renal insufficiency, acute on chronic, slowly improving. 3. Hematuria. 4. Pyuria. 5. Proteinuria. 6. Urinary retention with chronic suprapubic tube. 7. Neurogenic bladder. sp tube indwelling hand irrigated, patent abx as ordered monitor renal fxn need old recs Subjective Allergies: Coded Allergies: CEFEPIME (Unverified Allergy, Unknown, 11/09/17) Subjective all noted Objective Last 24 Hour Vital Signs Date Time Temp Pulse Resp B/P (MAP) Pulse Ox O2 Delivery O2 Flow Rate FiO2 11/12/17 04:00 90 11/12/17 04:00 Nasal Cannula 3.0 11/12/17 04:00 97.1 88 21 94/58 (70) 96 97.1 11/12/17 00:00 97.0 86 21 92/56 (68) 96 97.0 11/12/17 00:00 87 11/12/17 00:00 Nasal Cannula 3.0 11/11/17 20:00 97.0 86 21 95/53 (67) 97 97.0 11/11/17 20:00 98 11/11/17 20:00 Nasal Cannula 3.0 11/11/17 16:00 Nasal Cannula 3.0 11/11/17 15:57 95 11/11/17 15:49 97.0 100 21 97/61 (73) 97 97.0 11/11/17 12:00 Nasal Cannula 3.0 11/11/17 12:00 108 11/11/17 11:35 97.2 106 24 104/66 (79) 98 97.2 11/11/17 08:00 Nasal Cannula 3.0 11/11/17 08:00 110 11/11/17 07:53 97.3 111 23 106/64 (78) 97 97.3 Intake and Output 11/11/17 11/12/17 19:00 07:00 Intake Total 2002.0 ml 1430 ml Output Total 850 ml 650 ml Balance 1152.0 ml 780 ml Intake IV Total 2002.0 ml 1430 ml Output Urine Total 850 ml 650 ml # Bowel Movements 4 Microbiology Date/Time Source Procedure Growth Status 11/09/17 13:20 Blood Blood Culture - Final Staphylococcus Simulans Complete 11/09/17 13:20 Nasal Nares MRSA Culture - Final Staphylococcus Aureus - Mrsa Complete 11/09/17 13:30 Urine,Clean Catch Urine Culture - Preliminary Providencia Stuartii Resulted 11/09/17 20:25 Rectum Received Current Medications Medications (Trade) Dose Ordered Sig/Tay Route PRN Reason Start Time Stop Time Status Last Admin Dose Admin Acetaminophen (Tylenol) 650 mg Q6H PRN ORAL Mild Pain/Temp > 101 11/09/17 21:30 12/09/17 21:29 Dextrose/ Electrolytes 1,000 ml @ 125 mls/hr Q8H IV 11/11/17 10:00 12/10/17 09:59 11/12/17 00:44 Docusate Sodium (Colace) 100 mg TID ORAL 11/10/17 13:00 12/10/17 08:59 Ertapenem 0.5 gm/ Sodium Chloride 55 ml @ 110 mls/hr Q24H IVPB 11/11/17 20:00 11/16/17 19:59 11/11/17 20:03 Heparin Sodium (Porcine) (Heparin 5000 units/ml) 5,000 units EVERY 12 HOURS SUBQ 11/10/17 09:00 12/10/17 08:59 11/11/17 20:48 Levetiracetam 100 ml @ 400 mls/hr Q12HR IVPB 11/09/17 22:30 12/09/17 22:29 11/11/17 20:46 Midodrine (Pro-Amatine) 5 mg THREE TIMES A DAY ORAL 11/10/17 09:00 12/10/17 08:59 Ondansetron HCl (Zofran) 4 mg Q4H PRN IVP Nausea & Vomiting 11/09/17 21:30 12/09/17 21:29 Pantoprazole (Protonix) 40 mg DAILY IVP 11/10/17 09:00 12/10/17 08:59 11/11/17 08:31 Sennosides (Senokot) 1 tab DAILY PRN ORAL Constipation 11/09/17 21:30 12/09/17 21:29 Laboratory Tests 11/12/17 04:00: White Blood Count 9.9, Red Blood Count 3.60L, Hemoglobin 10.4L, Hematocrit 31.6L , Mean Corpuscular Volume 88, Mean Corpuscular Hemoglobin 28.9, Mean Corpuscular Hemoglobin Concent 32.8, Red Cell Distribution Width 13.7, Platelet Count 146L, Mean Platelet Volume 9.0, Neutrophils (%) (Auto) 81.2H, Lymphocytes (%) (Auto) 13.1L, Monocytes (%) (Auto) 3.8, Eosinophils (%) (Auto) 1.5, Basophils (%) (Auto) 0.4, Sodium Level 153#H, Potassium Level 3.4L, Chloride Level 124H, Carbon Dioxide Level 17L, Anion Gap 12, Blood Urea Nitrogen 30H, Creatinine 2.2H, Estimat Glomerular Filtration Rate 23.2, Glucose Level 152H, Lactic Acid Level 1.50, Calcium Level 7.5L, Phosphorus Level 3.9, Magnesium Level 2.4, Total Bilirubin 0.3, Aspartate Amino Transf (AST/SGOT) 30, Alanine Aminotransferase (ALT/SGPT) 14, Alkaline Phosphatase 127H, Troponin I 0.011, C- Reactive Protein, Quantitative 13.4H, Pro-B-Type Natriuretic Peptide 3319H, Total Protein 6.5, Albumin 1.9L, Globulin 4.6, Albumin/Globulin Ratio 0.4L Height (Feet): 5 Height (Inches): 2.00 Weight (Pounds): 130 Objective exam stable WILBER GALINDO Nov 12, 2017 07:49
[2017-11-12 08:00] VITALS: BP 90/60
[2017-11-12] MEDS: Midodrine 10mg tab ORAL SCH ×3 (09:00→18:00)
[2017-11-12] MEDS: Docusate 100mg cap ORAL SCH ×3 (09:00→18:00)
[2017-11-12] MEDS: Pantoprazole Inj IVP SCH (09:43)
[2017-11-12] MEDS: levETIRAcetam 500mg/NS100ml 100 ML IVPB SCH ×2 (09:45→20:20)
[2017-11-12] MEDS: Heparin 5000 units/ml inj SUBQ SCH ×2 (09:47→20:22)
--- NOTE | 2017-11-12 11:39 | GI Progress Note ---
Assessment/Plan Problems: (1) Electrolyte imbalance ICD Codes: E87.8 - Other disorders of electrolyte and fluid balance, not elsewhere classified SNOMED: 733273553 (2) Encounter for PEG (percutaneous endoscopic gastrostomy) ICD Codes: Z43.1 - Encounter for attention to gastrostomy SNOMED: 590360265, 787078071 (3) Dehydration ICD Codes: E86.0 - Dehydration SNOMED: 61982416 (4) Dehydration, severe ICD Codes: E86.0 - Dehydration SNOMED: 459962926 Status: unchanged Status Narrative Discussed with Dr. Chan. Assessment/Plan POLST reviewed >> No artificial feedings. unable to contact the son, voicemail left NGTF vs PEG to be scheduled if family agrees ST evaluation not completed because patient is unable to participate. maintain NPO + IVFs electrolyte correction per Nephro ppi bowel regime fu labs The patient was seen and examined at bedside and all new and available data was reviewed in the patients chart. I agree with the above findings, impression and plan. (Patient seen earlier today. Signature stamp does not reflect patient encounter time.). - Laith Chan MD Subjective Subjective limited Objective Last 24 Hour Vital Signs Date Time Temp Pulse Resp B/P (MAP) Pulse Ox O2 Delivery O2 Flow Rate FiO2 11/12/17 09:00 83 11/12/17 08:00 96.6 81 20 90/60 (70) 100 96.6 11/12/17 08:00 Nasal Cannula 3.0 11/12/17 04:00 90 11/12/17 04:00 Nasal Cannula 3.0 11/12/17 04:00 97.1 88 21 94/58 (70) 96 97.1 11/12/17 00:00 97.0 86 21 92/56 (68) 96 97.0 11/12/17 00:00 87 11/12/17 00:00 Nasal Cannula 3.0 11/11/17 20:00 97.0 86 21 95/53 (67) 97 97.0 11/11/17 20:00 98 11/11/17 20:00 Nasal Cannula 3.0 11/11/17 16:00 Nasal Cannula 3.0 11/11/17 15:57 95 11/11/17 15:49 97.0 100 21 97/61 (73) 97 97.0 11/11/17 12:00 Nasal Cannula 3.0 11/11/17 12:00 108 Intake and Output 11/11/17 11/12/17 19:00 07:00 Intake Total 2002.0 ml 1430 ml Output Total 850 ml 650 ml Balance 1152.0 ml 780 ml Intake IV Total 2002.0 ml 1430 ml Output Urine Total 850 ml 650 ml # Bowel Movements 4 Laboratory Tests Test 11/12/17 04:00 White Blood Count 9.9 K/UL (4.8-10.8) Red Blood Count 3.60 M/UL (4.20-5.40) L Hemoglobin 10.4 G/DL (12.0-16.0) L Hematocrit 31.6 % (37.0-47.0) L Mean Corpuscular Volume 88 FL (80-99) Mean Corpuscular Hemoglobin 28.9 PG (27.0-31.0) Mean Corpuscular Hemoglobin Concent 32.8 G/DL (32.0-36.0) Red Cell Distribution Width 13.7 % (11.6-14.8) Platelet Count 146 K/UL (150-450) L Mean Platelet Volume 9.0 FL (6.5-10.1) Neutrophils (%) (Auto) 81.2 % (45.0-75.0) H Lymphocytes (%) (Auto) 13.1 % (20.0-45.0) L Monocytes (%) (Auto) 3.8 % (1.0-10.0) Eosinophils (%) (Auto) 1.5 % (0.0-3.0) Basophils (%) (Auto) 0.4 % (0.0-2.0) Sodium Level 153 MMOL/L (136-145) #H Potassium Level 3.4 MMOL/L (3.5-5.1) L Chloride Level 124 MMOL/L (98-107) H Carbon Dioxide Level 17 MMOL/L (21-32) L Anion Gap 12 mmol/L (5-15) Blood Urea Nitrogen 30 mg/dL (7-18) H Creatinine 2.2 MG/DL (0.55-1.30) H Estimat Glomerular Filtration Rate 23.2 mL/min (>60) Glucose Level 152 MG/DL (74-106) H Lactic Acid Level 1.50 mmol/L (0.4-2.0) Calcium Level 7.5 MG/DL (8.5-10.1) L Phosphorus Level 3.9 MG/DL (2.5-4.9) Magnesium Level 2.4 MG/DL (1.8-2.4) Total Bilirubin 0.3 MG/DL (0.2-1.0) Aspartate Amino Transf (AST/SGOT) 30 U/L (15-37) Alanine Aminotransferase (ALT/SGPT) 14 U/L (12-78) Alkaline Phosphatase 127 U/L (46-116) H Troponin I 0.011 ng/mL (0.000-0.056) C-Reactive Protein, Quantitative 13.4 mg/dL (0.00-0.90) H Pro-B-Type Natriuretic Peptide 3319 pg/mL (0-125) H Total Protein 6.5 G/DL (6.4-8.2) Albumin 1.9 G/DL (3.4-5.0) L Globulin 4.6 g/dL Albumin/Globulin Ratio 0.4 (1.0-2.7) L Height (Feet): 5 Height (Inches): 2.00 Weight (Pounds): 130 General Appearance: alert Cardiovascular: normal rate Respiratory/Chest: other - 3LNC Abdominal Exam: normal bowel sounds, non tender, soft Olivia Lubin NP Nov 12, 2017 11:39
[2017-11-12 12:00] VITALS: BP 100/69
--- NOTE | 2017-11-12 12:03 | Nephrology Progress Note ---
Assessment/Plan Problem List: (1) Acute renal failure (ARF) (2) Dehydration with hypernatremia (3) Severe sepsis (4) Shock (5) Dehydration, severe Assessment Acute kidney injury, likely on chronic kidney disease. Cr lowering Hypernatremia, with an initial sodium of 177. Na lowering Profound dehydration. improving Shock, likely septic. Hypercalcemia. on presentation Urinary tract infection. Has supraPubic cath History of traumatic brain injury, dementia, and seizure disorder. History of staghorn renal calculi with multiple UTIs, status post Plan D5W KCL, Mag , Phos as needed Antibiotics Anemia yarbrough Monitor renal parameters- Avoid Nephrotoxics midodrine , 10 TID Subjective ROS Limited/Unobtainable: Yes Objective Objective Last 24 Hour Vital Signs Date Time Temp Pulse Resp B/P (MAP) Pulse Ox O2 Delivery O2 Flow Rate FiO2 11/12/17 09:00 83 11/12/17 08:00 96.6 81 20 90/60 (70) 100 96.6 11/12/17 08:00 Nasal Cannula 3.0 11/12/17 04:00 90 11/12/17 04:00 Nasal Cannula 3.0 11/12/17 04:00 97.1 88 21 94/58 (70) 96 97.1 11/12/17 00:00 97.0 86 21 92/56 (68) 96 97.0 11/12/17 00:00 87 11/12/17 00:00 Nasal Cannula 3.0 11/11/17 20:00 97.0 86 21 95/53 (67) 97 97.0 11/11/17 20:00 98 11/11/17 20:00 Nasal Cannula 3.0 11/11/17 16:00 Nasal Cannula 3.0 11/11/17 15:57 95 11/11/17 15:49 97.0 100 21 97/61 (73) 97 97.0 Intake and Output 11/11/17 11/12/17 19:00 07:00 Intake Total 2002.0 ml 1430 ml Output Total 850 ml 650 ml Balance 1152.0 ml 780 ml Intake IV Total 2002.0 ml 1430 ml Output Urine Total 850 ml 650 ml # Bowel Movements 4 Laboratory Tests 11/12/17 04:00: White Blood Count 9.9, Red Blood Count 3.60L, Hemoglobin 10.4L, Hematocrit 31.6L , Mean Corpuscular Volume 88, Mean Corpuscular Hemoglobin 28.9, Mean Corpuscular Hemoglobin Concent 32.8, Red Cell Distribution Width 13.7, Platelet Count 146L, Mean Platelet Volume 9.0, Neutrophils (%) (Auto) 81.2H, Lymphocytes (%) (Auto) 13.1L, Monocytes (%) (Auto) 3.8, Eosinophils (%) (Auto) 1.5, Basophils (%) (Auto) 0.4, Sodium Level 153#H, Potassium Level 3.4L, Chloride Level 124H, Carbon Dioxide Level 17L, Anion Gap 12, Blood Urea Nitrogen 30H, Creatinine 2.2H, Estimat Glomerular Filtration Rate 23.2, Glucose Level 152H, Lactic Acid Level 1.50, Calcium Level 7.5L, Phosphorus Level 3.9, Magnesium Level 2.4, Total Bilirubin 0.3, Aspartate Amino Transf (AST/SGOT) 30, Alanine Aminotransferase (ALT/SGPT) 14, Alkaline Phosphatase 127H, Troponin I 0.011, C- Reactive Protein, Quantitative 13.4H, Pro-B-Type Natriuretic Peptide 3319H, Total Protein 6.5, Albumin 1.9L, Globulin 4.6, Albumin/Globulin Ratio 0.4L Height (Feet): 5 Height (Inches): 2.00 Weight (Pounds): 130 General Appearance: no apparent distress Cardiovascular: normal rate Respiratory/Chest: decreased breath sounds Abdomen: soft Parrish Luo MD Nov 12, 2017 12:03
[2017-11-12] MEDS ORDERED: Vancomycin 1250mg/D5W 250ml IVPB ONE (14:30)
--- NOTE | 2017-11-12 15:04 | Pulmonology Progress Note ---
Assessment/Plan Assessment/Plan Pulmonary Progress Note Assessment/Plan ASSESSMENT: The patient is a 52-year-old intermediate resident with history of dementia, traumatic brain injury, recurrent staghorn calculi, recurrent urinary tract infection, suprapubic catheter, prior trach, seizure disorder, nonverbal at baseline, presenting initially for desaturation, but now is stable respiratory dynamics, but concerned for sepsis and profound dehydration with acute kidney injury, anion gap, metabolic acidosis, lactic acidosis, and hemoconcentration all likely secondary to a source. K 3,4, Na 153 PROBLEM LIST: 1. SIRS/sepsis. 2. Shock, likely septic. 3. Profound dehydration. 4. Hypernatremia, with an initial sodium of 177. 5. Anion gap metabolic acidosis, lactic acidosis. 6. Acute kidney injury, likely on chronic kidney disease. 7. Hypercalcemia. 8. Urinary tract infection. 9. History of traumatic brain injury, dementia, and seizure disorder. 10. History of prior tracheostomy, status post takedown. 11. History of staghorn renal calculi with multiple UTIs, status post suprapubic catheter placement. 12. [facility] resident. 13. Nonverbal at baseline. 14. Bed-bound. 15. Full Code. TREATMENT PLAN: 1. CIVF per renal, replete electrolytes 2. Need to clarify feed situation, GI eval for NGT, PEG not within GOC, continue ADJUSTER AND INSPECTOR therapy 3. Continue MEROPENEM per ID, F/U Cx's 4. Appreciate eval 5. Heparin subcutaneous for DVT prophylaxis. 6. PRN O2, PRN HHN's 7. The patient is a Full Code, POLST reviewed by myself, we will need to discuss goals of care further. Subjective Allergies: Coded Allergies: CEFEPIME (Unverified Allergy, Unknown, 11/09/17) Subjective AFVSS, O2 needs stable Na down to 165, renal function better, electrolytes repleted Barely opens eyes, NGT placement was unsuccessful, per POLST to artificial feeding Failed ADJUSTER AND INSPECTOR eval No cough, no SOB, no F/C, no distress Objective Last 24 Hour Vital Signs Date Time Temp Pulse Resp B/P (MAP) Pulse Ox O2 Delivery O2 Flow Rate FiO2 11/11/17 08:00 Nasal Cannula 2.0 11/11/17 08:00 110 11/11/17 07:53 97.3 111 23 106/64 (78) 97 97.3 11/11/17 04:00 Nasal Cannula 3.0 11/11/17 04:00 97.6 108 26 102/73 (83) 99 97.6 11/11/17 03:54 108 11/11/17 00:00 97.6 87 20 100/67 (78) 98 97.6 11/11/17 00:00 Nasal Cannula 3.0 11/10/17 23:43 91 11/10/17 20:00 96.8 95 20 99/52 (68) 96 96.8 11/10/17 20:00 Nasal Cannula 3.0 11/10/17 19:06 101 11/10/17 16:00 Nasal Cannula 3.0 11/10/17 16:00 97.4 97 21 90/75 (80) 98 97.4 11/10/17 16:00 90 11/10/17 12:00 102 11/10/17 12:00 98.4 102 22 118/69 (85) 99 98.4 11/10/17 12:00 Nasal Cannula 3.0 Intake and Output 11/10/17 11/11/17 19:00 07:00 Intake Total 1390 ml 1230 ml Output Total 1000 ml 1100 ml Balance 390 ml 130 ml Intake IV Total 1390 ml 1230 ml Output Urine Total 1000 ml 1100 ml # Bowel Movements 2 General Appearance: cachetic - barely opens eyes HEENT: normocephalic, atraumatic, anicteric, other - Dry MM Respiratory/Chest: rhonchi Cardiovascular: normal peripheral pulses, normal rate, regular rhythm Abdomen: normal bowel sounds, soft, non tender, no organomegaly, non distended Extremities: no cyanosis, no clubbing, no edema, other - + contracutres Microbiology Date/Time Source Procedure Growth Status 11/09/17 13:20 Blood Blood Culture - Preliminary Staphylococcus Species Resulted 11/09/17 13:08 Blood Blood Culture - Preliminary NO GROWTH AFTER 24 HOURS Resulted 11/09/17 13:20 Nasal Nares MRSA Culture - Final Staphylococcus Aureus - Mrsa Complete 11/09/17 13:30 Urine,Clean Catch Urine Culture - Preliminary Providencia Stuartii Resulted 11/09/17 20:25 Rectum Received 11/09/17 13:20 Rectum VRE Culture - Final Enterococcus Faecalis - Vre Complete 11/09/17 13:20 Rectum - Final NO CARBAPENEM-RESISTANT ENTEROBACTERI... Complete Laboratory Tests 11/11/17 04:00: White Blood Count 9.4#, Red Blood Count 4.20, Hemoglobin 12.2, Hematocrit 37.4, Mean Corpuscular Volume 89, Mean Corpuscular Hemoglobin 29.2, Mean Corpuscular Hemoglobin Concent 32.7, Red Cell Distribution Width 13.8, Platelet Count 184, Mean Platelet Volume 8.7, Neutrophils (%) (Auto) , Lymphocytes (%) (Auto) , Monocytes (%) (Auto) , Eosinophils (%) (Auto) , Basophils (%) (Auto) , Neutrophils % (Manual) [Pending], Lymphocytes % (Manual) [Pending], Platelet Estimate [Pending], Platelet Morphology [Pending], Sodium Level 165*H, Potassium Level 2.7*L, Chloride Level 136H, Carbon Dioxide Level 17L, Anion Gap 15, Blood Urea Nitrogen 45H, Creatinine 2.9H, Estimat Glomerular Filtration Rate 16.9, Glucose Level 149H, Lactic Acid Level 1.90, Uric Acid 8.5H, Calcium Level 8.6, Phosphorus Level 1.0L, Magnesium Level 1.4L, Iron Level 40L, Total Iron Binding Capacity 121L, Percent Iron Saturation 33, Unsaturated Iron Binding 81L, Ferritin 1500H, Total Bilirubin 0.5, Aspartate Amino Transf (AST/ SGOT) 25, Alanine Aminotransferase (ALT/SGPT) 17, Alkaline Phosphatase 128H, Troponin I 0.030, Pro-B-Type Natriuretic Peptide 2207H, Total Protein 7.5, Albumin 2.3L, Globulin 5.2, Albumin/Globulin Ratio 0.4L, Vitamin B12 Level 1045H , Folate 11.4, Thyroid Stimulating Hormone (TSH) 2.391 Current Medications Medications (Trade) Dose Ordered Sig/Tay Route PRN Reason Start Time Stop Time Status Last Admin Dose Admin Acetaminophen (Tylenol) 650 mg Q6H PRN ORAL Mild Pain/Temp > 101 11/09/17 21:30 12/09/17 21:29 Dextrose/ Electrolytes 1,000 ml @ 125 mls/hr Q8H IV 11/11/17 10:00 12/10/17 09:59 Docusate Sodium (Colace) 100 mg TID ORAL 11/10/17 13:00 12/10/17 08:59 Heparin Sodium (Porcine) (Heparin 5000 units/ml) 5,000 units EVERY 12 HOURS SUBQ 11/10/17 09:00 12/10/17 08:59 11/11/17 08:33 Levetiracetam 100 ml @ 400 mls/hr Q12HR IVPB 11/09/17 22:30 12/09/17 22:29 11/11/17 08:31 Magnesium Sulfate 100 ml @ 100 mls/hr Q1H IVPB 11/11/17 10:00 11/11/17 13:59 Meropenem 500 mg/ Sodium Chloride 55 ml @ 110 mls/hr Q12HR IVPB 11/10/17 21:00 11/15/17 20:59 11/11/17 09:02 Midodrine (Pro-Amatine) 5 mg THREE TIMES A DAY ORAL 11/10/17 09:00 12/10/17 08:59 Ondansetron HCl (Zofran) 4 mg Q4H PRN IVP Nausea & Vomiting 11/09/17 21:30 12/09/17 21:29 Pantoprazole (Protonix) 40 mg DAILY IVP 11/10/17 09:00 12/10/17 08:59 11/11/17 08:31 Potassium Phosphate 30 mm/ Sodium Chloride 285 ml @ 47.5 mls/hr ONCE IV 11/11/17 13:00 11/11/17 14:30 Sennosides (Senokot) 1 tab DAILY PRN ORAL Constipation 11/09/17 21:30 12/09/17 21:29 Subjective ROS Limited/Unobtainable: No Allergies: Coded Allergies: CEFEPIME (Unverified Allergy, Unknown, 11/09/17) Objective Last 24 Hour Vital Signs Date Time Temp Pulse Resp B/P (MAP) Pulse Ox O2 Delivery O2 Flow Rate FiO2 11/12/17 12:00 96.6 74 20 100/69 (79) 99 96.6 11/12/17 12:00 75 11/12/17 12:00 Nasal Cannula 3.0 11/12/17 09:00 83 11/12/17 08:00 96.6 81 20 90/60 (70) 100 96.6 11/12/17 08:00 Nasal Cannula 3.0 11/12/17 04:00 90 11/12/17 04:00 Nasal Cannula 3.0 11/12/17 04:00 97.1 88 21 94/58 (70) 96 97.1 11/12/17 00:00 97.0 86 21 92/56 (68) 96 97.0 11/12/17 00:00 87 11/12/17 00:00 Nasal Cannula 3.0 11/11/17 20:00 97.0 86 21 95/53 (67) 97 97.0 11/11/17 20:00 98 11/11/17 20:00 Nasal Cannula 3.0 11/11/17 16:00 Nasal Cannula 3.0 11/11/17 15:57 95 11/11/17 15:49 97.0 100 21 97/61 (73) 97 97.0 Intake and Output 11/11/17 11/12/17 19:00 07:00 Intake Total 2002.0 ml 1430 ml Output Total 850 ml 650 ml Balance 1152.0 ml 780 ml Intake IV Total 2002.0 ml 1430 ml Output Urine Total 850 ml 650 ml # Bowel Movements 4 Microbiology Date/Time Source Procedure Growth Status 11/09/17 20:25 Nasal Nares MRSA Culture - Final Staphylococcus Aureus - Mrsa Complete 11/09/17 20:25 Rectum VRE Culture - Final Enterococcus Faecalis - Vre Complete Laboratory Tests 11/12/17 04:00: White Blood Count 9.9, Red Blood Count 3.60L, Hemoglobin 10.4L, Hematocrit 31.6L , Mean Corpuscular Volume 88, Mean Corpuscular Hemoglobin 28.9, Mean Corpuscular Hemoglobin Concent 32.8, Red Cell Distribution Width 13.7, Platelet Count 146L, Mean Platelet Volume 9.0, Neutrophils (%) (Auto) 81.2H, Lymphocytes (%) (Auto) 13.1L, Monocytes (%) (Auto) 3.8, Eosinophils (%) (Auto) 1.5, Basophils (%) (Auto) 0.4, Sodium Level 153#H, Potassium Level 3.4L, Chloride Level 124H, Carbon Dioxide Level 17L, Anion Gap 12, Blood Urea Nitrogen 30H, Creatinine 2.2H, Estimat Glomerular Filtration Rate 23.2, Glucose Level 152H, Lactic Acid Level 1.50, Calcium Level 7.5L, Phosphorus Level 3.9, Magnesium Level 2.4, Total Bilirubin 0.3, Aspartate Amino Transf (AST/SGOT) 30, Alanine Aminotransferase (ALT/SGPT) 14, Alkaline Phosphatase 127H, Troponin I 0.011, C- Reactive Protein, Quantitative 13.4H, Pro-B-Type Natriuretic Peptide 3319H, Total Protein 6.5, Albumin 1.9L, Globulin 4.6, Albumin/Globulin Ratio 0.4L Current Medications Medications (Trade) Dose Ordered Sig/Tay Route PRN Reason Start Time Stop Time Status Last Admin Dose Admin Acetaminophen (Tylenol) 650 mg Q6H PRN ORAL Mild Pain/Temp > 101 11/09/17 21:30 12/09/17 21:29 Dextrose/ Electrolytes 1,000 ml @ 75 mls/hr [id number] IV 11/12/17 08:30 12/10/17 08:29 11/12/17 09:43 Docusate Sodium (Colace) 100 mg TID ORAL 11/10/17 13:00 12/10/17 08:59 Ertapenem 0.5 gm/ Sodium Chloride 55 ml @ 110 mls/hr Q24H IVPB 11/11/17 20:00 11/16/17 19:59 11/11/17 20:03 Heparin Sodium (Porcine) (Heparin 5000 units/ml) 5,000 units EVERY 12 HOURS SUBQ 11/10/17 09:00 12/10/17 08:59 11/12/17 09:47 Levetiracetam 100 ml @ 400 mls/hr Q12HR IVPB 11/09/17 22:30 12/09/17 22:29 11/12/17 09:45 Midodrine (Pro-Amatine) 10 mg THREE TIMES A DAY ORAL 11/12/17 09:00 12/10/17 08:59 Ondansetron HCl (Zofran) 4 mg Q4H PRN IVP Nausea & Vomiting 11/09/17 21:30 12/09/17 21:29 Pantoprazole (Protonix) 40 mg DAILY IVP 11/10/17 09:00 12/10/17 08:59 11/12/17 09:43 Sennosides (Senokot) 1 tab DAILY PRN ORAL Constipation 11/09/17 21:30 12/09/17 21:29 Vancomycin HCl (Vanco rx to dose) 1 ea DAILY PRN MISC Per rx protocol 11/12/17 13:30 12/12/17 13:29 Vancomycin HCl/ Dextrose 250 ml @ 166.667 mls/hr ONCE ONCE IVPB 11/12/17 14:30 11/12/17 15:59 Lance Lino MD Nov 12, 2017 15:04
--- NOTE | 2017-11-12 15:13 | Infectious Diseases Prog Note ---
Assessment/Plan Problems: (1) Acute pyelonephritis Assessment & Plan: with MDR Providencia stuartii, and MRSA , suspect due to right ureter stent obstruction, will add vancomycin to cover for MRSA , and continue ertapenem and treat for two weeks total , urology eval is in progress , renal US is pending (2) Hydronephrosis of right kidney Assessment & Plan: suspect ureter stent malfunction , will order renal US, recommend urology eval (3) Severe sepsis Assessment & Plan: with staph simulans , most likely contamination , grew from one set (4) Renal failure Assessment & Plan: continue hydration , monitor renal function, avoid nephrotoxics (5) Hypernatremia Assessment & Plan: due to free water loss , continue hydration with close monitor of serum sodium (6) Left shoulder pain Assessment & Plan: due to chronic rotator cuff syndrom, as evident by X ray , folllow up with ortho (7) Colonization with VRE (vancomycin-resistant enterococcus) Assessment & Plan: keep in contact isolation Subjective ROS Limited/Unobtainable: Yes Allergies: Coded Allergies: CEFEPIME (Unverified Allergy, Unknown, 11/09/17) Subjective she was up in bed, awake, and alert, minimally verbal, complained of chest pain , doesn't follow commands, lethargic, a febrile Objective Vital Signs Last 24 Hour Vital Signs Date Time Temp Pulse Resp B/P (MAP) Pulse Ox O2 Delivery O2 Flow Rate FiO2 11/12/17 12:00 96.6 74 20 100/69 (79) 99 96.6 11/12/17 12:00 75 11/12/17 12:00 Nasal Cannula 3.0 11/12/17 09:00 83 11/12/17 08:00 96.6 81 20 90/60 (70) 100 96.6 11/12/17 08:00 Nasal Cannula 3.0 11/12/17 04:00 90 11/12/17 04:00 Nasal Cannula 3.0 11/12/17 04:00 97.1 88 21 94/58 (70) 96 97.1 11/12/17 00:00 97.0 86 21 92/56 (68) 96 97.0 11/12/17 00:00 87 11/12/17 00:00 Nasal Cannula 3.0 11/11/17 20:00 97.0 86 21 95/53 (67) 97 97.0 11/11/17 20:00 98 11/11/17 20:00 Nasal Cannula 3.0 11/11/17 16:00 Nasal Cannula 3.0 11/11/17 15:57 95 11/11/17 15:49 97.0 100 21 97/61 (73) 97 97.0 Height (Feet): 5 Height (Inches): 2.00 Weight (Pounds): 130 General Appearance: WD/WN, no acute distress HEENT: normocephalic, atraumatic, anicteric, supple, no JVD, other - dry oral mucosa with dry secretions Respiratory/Chest: chest wall non-tender, lungs clear, normal breath sounds, no respiratory distress, no accessory muscle use Cardiovascular: normal peripheral pulses, normal rate, regular rhythm, no gallop/murmur, no JVD Abdomen: normal bowel sounds, soft, non tender, no organomegaly, non distended , no mass, no scars Extremities: no cyanosis, no clubbing Skin: no rash, no lesions, no ulcers Neurologic/Psychiatric: alert, oriented x 3, unresponsiveness, other - lethargic Lymphatic: no neck adenopathy, no groin adenopathy Musculoskeletal: normal muscle bulk, no effusion Microbiology Date/Time Source Procedure Growth Status 11/09/17 20:25 Nasal Nares MRSA Culture - Final Staphylococcus Aureus - Mrsa Complete 11/09/17 20:25 Rectum VRE Culture - Final Enterococcus Faecalis - Vre Complete Laboratory Tests Test 11/12/17 04:00 White Blood Count 9.9 K/UL (4.8-10.8) Red Blood Count 3.60 M/UL (4.20-5.40) L Hemoglobin 10.4 G/DL (12.0-16.0) L Hematocrit 31.6 % (37.0-47.0) L Mean Corpuscular Volume 88 FL (80-99) Mean Corpuscular Hemoglobin 28.9 PG (27.0-31.0) Mean Corpuscular Hemoglobin Concent 32.8 G/DL (32.0-36.0) Red Cell Distribution Width 13.7 % (11.6-14.8) Platelet Count 146 K/UL (150-450) L Mean Platelet Volume 9.0 FL (6.5-10.1) Neutrophils (%) (Auto) 81.2 % (45.0-75.0) H Lymphocytes (%) (Auto) 13.1 % (20.0-45.0) L Monocytes (%) (Auto) 3.8 % (1.0-10.0) Eosinophils (%) (Auto) 1.5 % (0.0-3.0) Basophils (%) (Auto) 0.4 % (0.0-2.0) Sodium Level 153 MMOL/L (136-145) #H Potassium Level 3.4 MMOL/L (3.5-5.1) L Chloride Level 124 MMOL/L (98-107) H Carbon Dioxide Level 17 MMOL/L (21-32) L Anion Gap 12 mmol/L (5-15) Blood Urea Nitrogen 30 mg/dL (7-18) H Creatinine 2.2 MG/DL (0.55-1.30) H Estimat Glomerular Filtration Rate 23.2 mL/min (>60) Glucose Level 152 MG/DL (74-106) H Lactic Acid Level 1.50 mmol/L (0.4-2.0) Calcium Level 7.5 MG/DL (8.5-10.1) L Phosphorus Level 3.9 MG/DL (2.5-4.9) Magnesium Level 2.4 MG/DL (1.8-2.4) Total Bilirubin 0.3 MG/DL (0.2-1.0) Aspartate Amino Transf (AST/SGOT) 30 U/L (15-37) Alanine Aminotransferase (ALT/SGPT) 14 U/L (12-78) Alkaline Phosphatase 127 U/L (46-116) H Troponin I 0.011 ng/mL (0.000-0.056) C-Reactive Protein, Quantitative 13.4 mg/dL (0.00-0.90) H Pro-B-Type Natriuretic Peptide 3319 pg/mL (0-125) H Total Protein 6.5 G/DL (6.4-8.2) Albumin 1.9 G/DL (3.4-5.0) L Globulin 4.6 g/dL Albumin/Globulin Ratio 0.4 (1.0-2.7) L Current Medications Medications (Trade) Dose Ordered Sig/Tay Route PRN Reason Start Time Stop Time Status Last Admin Dose Admin Acetaminophen (Tylenol) 650 mg Q6H PRN ORAL Mild Pain/Temp > 101 11/09/17 21:30 12/09/17 21:29 Dextrose/ Electrolytes 1,000 ml @ 75 mls/hr [id number] IV 11/12/17 08:30 12/10/17 08:29 11/12/17 09:43 Docusate Sodium (Colace) 100 mg TID ORAL 11/10/17 13:00 12/10/17 08:59 Ertapenem 0.5 gm/ Sodium Chloride 55 ml @ 110 mls/hr Q24H IVPB 11/11/17 20:00 11/16/17 19:59 11/11/17 20:03 Heparin Sodium (Porcine) (Heparin 5000 units/ml) 5,000 units EVERY 12 HOURS SUBQ 11/10/17 09:00 12/10/17 08:59 11/12/17 09:47 Levetiracetam 100 ml @ 400 mls/hr Q12HR IVPB 11/09/17 22:30 12/09/17 22:29 11/12/17 09:45 Midodrine (Pro-Amatine) 10 mg THREE TIMES A DAY ORAL 11/12/17 09:00 12/10/17 08:59 Ondansetron HCl (Zofran) 4 mg Q4H PRN IVP Nausea & Vomiting 11/09/17 21:30 12/09/17 21:29 Pantoprazole (Protonix) 40 mg DAILY IVP 11/10/17 09:00 12/10/17 08:59 11/12/17 09:43 Sennosides (Senokot) 1 tab DAILY PRN ORAL Constipation 11/09/17 21:30 12/09/17 21:29 Vancomycin HCl (Vanco rx to dose) 1 ea DAILY PRN MISC Per rx protocol 11/12/17 13:30 12/12/17 13:29 Vancomycin HCl/ Dextrose 250 ml @ 166.667 mls/hr ONCE ONCE IVPB 11/12/17 14:30 11/12/17 15:59 Kortney Quiñones M.D. Nov 12, 2017 15:13
[2017-11-12 16:00] VITALS: BP 105/67
[2017-11-12 20:00] VITALS: BP 91/62
[2017-11-12] MEDS: Ertapenem 0.5 GM in NS 55 ML IVPB SCH (20:50)
[2017-11-13] VITALS: BP 86/39
[2017-11-13 04:00] VITALS: BP 110/64
[2017-11-13 05:22] LABS: BASOPHILS % (AUTO) 0.4 % (0.0-2.0); EOSINOPHILS % (AUTO) 3.7 % (0.0-3.0); HEMATOCRIT 29.1 % (37.0-47.0); HEMOGLOBIN 9.7 G/DL (12.0-16.0); MEAN CORPUSCULAR VOLUME 87 FL (80-99); MONOCYTES % (AUTO) 4.3 % (1.0-10.0); NEUTROPHILS % (AUTO) 68.6 % (45.0-75.0); PLATELET COUNT 119 K/UL (150-450); RED BLOOD COUNT 3.34 M/UL (4.20-5.40); RED CELL DISTRIBUTION WIDTH 12.9 % (11.6-14.8); WHITE BLOOD COUNT 6.6 K/UL (4.8-10.8)
[2017-11-13 06:03] LABS: PHOSPHORUS 3.1 MG/DL (2.5-4.9)
[2017-11-13 06:29] LABS: ALANINE AMINOTRANSFERASE 13 U/L (12-78); ALBUMIN 2.2 G/DL (3.4-5.0); ALBUMIN/GLOBULIN RATIO 0.6 (1.0-2.7); ALKALINE PHOSPHATASE 105 U/L (46-116); ANION GAP 11 mmol/L (5-15); ASPARTATE AMINO TRANSFERASE 18 U/L (15-37); BILIRUBIN,TOTAL 0.3 MG/DL (0.2-1.0); BLOOD UREA NITROGEN 17 mg/dL (7-18); CALCIUM 7.4 MG/DL (8.5-10.1); CARBON DIOXIDE 19 MMOL/L (21-32); CHLORIDE 125 MMOL/L (98-107); CREATININE 1.7 MG/DL (0.55-1.30); POTASSIUM 3.5 MMOL/L (3.5-5.1); SODIUM 155 MMOL/L (136-145)
[2017-11-13 08:00] VITALS: BP 86/51
[2017-11-13] MEDS: levETIRAcetam 500mg/NS100ml 100 ML IVPB SCH ×2 (08:31→20:32)
[2017-11-13] MEDS: Pantoprazole Inj IVP SCH (08:31)
[2017-11-13] MEDS: Heparin 5000 units/ml inj SUBQ SCH ×2 (08:32→20:34)
[2017-11-13] MEDS: Docusate 100mg cap ORAL SCH ×3 (08:42→17:34)
[2017-11-13] MEDS: Midodrine 10mg tab ORAL SCH ×3 (08:42→17:34)
--- NOTE | 2017-11-13 09:00 | Urology Progress Note ---
Assessment/Plan Assessment/Plan 1. History of hydronephrosis that is chronic. 2. Renal insufficiency, acute on chronic, slowly improving. 3. Hematuria. 4. Pyuria. 5. Proteinuria. 6. Urinary retention with chronic suprapubic tube. 7. Neurogenic bladder. sp tube indwelling hand irrigated, patent abx as ordered monitor renal fxn need old recs Subjective Allergies: Coded Allergies: CEFEPIME (Unverified Allergy, Unknown, 11/09/17) Subjective all noted Objective Last 24 Hour Vital Signs Date Time Temp Pulse Resp B/P (MAP) Pulse Ox O2 Delivery O2 Flow Rate FiO2 11/13/17 08:00 95.9 73 18 86/51 (63) 100 95.9 11/13/17 08:00 Nasal Cannula 3.0 11/13/17 04:00 96.2 71 2 110/64 (79) 100 96.2 11/13/17 04:00 76 11/13/17 04:00 Nasal Cannula 3.0 11/13/17 00:00 97.2 68 16 86/39 (55) 100 97.2 11/13/17 00:00 Nasal Cannula 3.0 11/12/17 23:53 70 11/12/17 20:00 97.0 80 16 91/62 (72) 100 97.0 11/12/17 20:00 Nasal Cannula 3.0 11/12/17 20:00 71 11/12/17 16:00 69 11/12/17 16:00 96.2 82 18 105/67 (80) 97 96.2 11/12/17 16:00 Nasal Cannula 3.0 11/12/17 12:00 96.6 74 20 100/69 (79) 99 96.6 11/12/17 12:00 75 11/12/17 12:00 Nasal Cannula 3.0 Intake and Output 11/12/17 11/13/17 19:00 07:00 Intake Total 775 ml 980 ml Output Total 1700 ml 1200 ml Balance -925 ml -220 ml Intake IV Total 775 ml 980 ml Output Urine Total 1700 ml 1200 ml # Bowel Movements 4 100 Microbiology Date/Time Source Procedure Growth Status 11/09/17 13:20 Blood Blood Culture - Final Staphylococcus Simulans Complete 11/09/17 20:25 Nasal Nares MRSA Culture - Final Staphylococcus Aureus - Mrsa Complete 11/09/17 13:30 Urine,Clean Catch Urine Culture - Final Providencia Stuartii Staphylococcus Aureus - Mrsa Complete 11/10/17 20:25 Rectum - Final NO CARBAPENEM-RESISTANT ENTEROBACTERI... Complete Current Medications Medications (Trade) Dose Ordered Sig/Tay Route PRN Reason Start Time Stop Time Status Last Admin Dose Admin Acetaminophen (Tylenol) 650 mg Q6H PRN ORAL Mild Pain/Temp > 101 11/09/17 21:30 12/09/17 21:29 Dextrose/ Electrolytes 1,000 ml @ 75 mls/hr [id number] IV 11/12/17 08:30 12/10/17 08:29 11/12/17 22:00 Docusate Sodium (Colace) 100 mg TID ORAL 11/10/17 13:00 12/10/17 08:59 Ertapenem 0.5 gm/ Sodium Chloride 55 ml @ 110 mls/hr Q24H IVPB 11/11/17 20:00 11/16/17 19:59 11/12/17 20:50 Heparin Sodium (Porcine) (Heparin 5000 units/ml) 5,000 units EVERY 12 HOURS SUBQ 11/10/17 09:00 12/10/17 08:59 11/13/17 08:32 Levetiracetam 100 ml @ 400 mls/hr Q12HR IVPB 11/09/17 22:30 12/09/17 22:29 11/13/17 08:31 Midodrine (Pro-Amatine) 10 mg THREE TIMES A DAY ORAL 11/12/17 09:00 12/10/17 08:59 Ondansetron HCl (Zofran) 4 mg Q4H PRN IVP Nausea & Vomiting 11/09/17 21:30 12/09/17 21:29 Pantoprazole (Protonix) 40 mg DAILY IVP 11/10/17 09:00 12/10/17 08:59 11/13/17 08:31 Sennosides (Senokot) 1 tab DAILY PRN ORAL Constipation 11/09/17 21:30 12/09/17 21:29 Vancomycin HCl (Vanco rx to dose) 1 ea DAILY PRN MISC Per rx protocol 11/12/17 13:30 12/12/17 13:29 Vancomycin HCl 500 mg/Dextrose 110 ml @ 110 mls/hr Q24H IVPB 11/13/17 14:00 11/18/17 13:59 Laboratory Tests 11/13/17 04:26: White Blood Count 6.6, Red Blood Count 3.34L, Hemoglobin 9.7L, Hematocrit 29.1L , Mean Corpuscular Volume 87, Mean Corpuscular Hemoglobin 29.1, Mean Corpuscular Hemoglobin Concent 33.4, Red Cell Distribution Width 12.9, Platelet Count 119L, Mean Platelet Volume 10.1, Neutrophils (%) (Auto) 68.6, Lymphocytes (%) (Auto) 23.0, Monocytes (%) (Auto) 4.3, Eosinophils (%) (Auto) 3.7H, Basophils (%) (Auto) 0.4, Sodium Level 155H, Potassium Level 3.5, Chloride Level 125H, Carbon Dioxide Level 19L, Anion Gap 11, Blood Urea Nitrogen 17, Creatinine 1.7H, Estimat Glomerular Filtration Rate 31.3, Glucose Level 86, Lactic Acid Level 1.80, Uric Acid 5.1, Calcium Level 7.4L, Phosphorus Level 3.1 , Magnesium Level 1.9, Total Bilirubin 0.3, Aspartate Amino Transf (AST/SGOT) 18 , Alanine Aminotransferase (ALT/SGPT) 13, Alkaline Phosphatase 105, Troponin I 0.010, Pro-B-Type Natriuretic Peptide 3539H, Total Protein 6.0L, Albumin 2.2L, Globulin 3.8, Albumin/Globulin Ratio 0.6L, Random Vancomycin Level 20.8 Height (Feet): 5 Height (Inches): 2.00 Weight (Pounds): 130 Objective exam stable WILBER GALINDO Nov 13, 2017 09:00
--- NOTE | 2017-11-13 11:31 | GI Progress Note ---
Assessment/Plan Problems: (1) Electrolyte imbalance ICD Codes: E87.8 - Other disorders of electrolyte and fluid balance, not elsewhere classified SNOMED: 571968473 (2) Encounter for PEG (percutaneous endoscopic gastrostomy) ICD Codes: Z43.1 - Encounter for attention to gastrostomy SNOMED: 830580172, 469065860 (3) Dehydration ICD Codes: E86.0 - Dehydration SNOMED: 46266457 (4) Dehydration, severe ICD Codes: E86.0 - Dehydration SNOMED: 764249020 Status: stable Status Narrative Discussed with Dr. Chan. Assessment/Plan POLST reviewed >> No artificial feedings. unable to contact the son, voicemail left >> NGTF vs PEG to be scheduled if family agrees bioethics ordered, patient has be NPO since admission. IV hydration ST evaluation follow up today, patient is more alert electrolyte correction per Nephro ppi bowel regime fu labs The patient was seen and examined at bedside and all new and available data was reviewed in the patients chart. I agree with the above findings, impression and plan. (Patient seen earlier today. Signature stamp does not reflect patient encounter time.). - Laith Chan MD Subjective Subjective limited Objective Last 24 Hour Vital Signs Date Time Temp Pulse Resp B/P (MAP) Pulse Ox O2 Delivery O2 Flow Rate FiO2 11/13/17 09:35 76 11/13/17 08:00 95.9 73 18 86/51 (63) 100 95.9 11/13/17 08:00 Nasal Cannula 3.0 11/13/17 04:00 96.2 71 2 110/64 (79) 100 96.2 11/13/17 04:00 76 11/13/17 04:00 Nasal Cannula 3.0 11/13/17 00:00 97.2 68 16 86/39 (55) 100 97.2 11/13/17 00:00 Nasal Cannula 3.0 11/12/17 23:53 70 11/12/17 20:00 97.0 80 16 91/62 (72) 100 97.0 11/12/17 20:00 Nasal Cannula 3.0 11/12/17 20:00 71 11/12/17 16:00 69 11/12/17 16:00 96.2 82 18 105/67 (80) 97 96.2 11/12/17 16:00 Nasal Cannula 3.0 11/12/17 12:00 96.6 74 20 100/69 (79) 99 96.6 11/12/17 12:00 75 11/12/17 12:00 Nasal Cannula 3.0 Intake and Output 11/12/17 11/13/17 19:00 07:00 Intake Total 775 ml 980 ml Output Total 1700 ml 1200 ml Balance -925 ml -220 ml Intake IV Total 775 ml 980 ml Output Urine Total 1700 ml 1200 ml # Bowel Movements 4 100 Laboratory Tests Test 11/13/17 04:26 White Blood Count 6.6 K/UL (4.8-10.8) Red Blood Count 3.34 M/UL (4.20-5.40) L Hemoglobin 9.7 G/DL (12.0-16.0) L Hematocrit 29.1 % (37.0-47.0) L Mean Corpuscular Volume 87 FL (80-99) Mean Corpuscular Hemoglobin 29.1 PG (27.0-31.0) Mean Corpuscular Hemoglobin Concent 33.4 G/DL (32.0-36.0) Red Cell Distribution Width 12.9 % (11.6-14.8) Platelet Count 119 K/UL (150-450) L Mean Platelet Volume 10.1 FL (6.5-10.1) Neutrophils (%) (Auto) 68.6 % (45.0-75.0) Lymphocytes (%) (Auto) 23.0 % (20.0-45.0) Monocytes (%) (Auto) 4.3 % (1.0-10.0) Eosinophils (%) (Auto) 3.7 % (0.0-3.0) H Basophils (%) (Auto) 0.4 % (0.0-2.0) Sodium Level 155 MMOL/L (136-145) H Potassium Level 3.5 MMOL/L (3.5-5.1) Chloride Level 125 MMOL/L (98-107) H Carbon Dioxide Level 19 MMOL/L (21-32) L Anion Gap 11 mmol/L (5-15) Blood Urea Nitrogen 17 mg/dL (7-18) Creatinine 1.7 MG/DL (0.55-1.30) H Estimat Glomerular Filtration Rate 31.3 mL/min (>60) Glucose Level 86 MG/DL (74-106) Lactic Acid Level 1.80 mmol/L (0.4-2.0) Uric Acid 5.1 MG/DL (2.6-7.2) Calcium Level 7.4 MG/DL (8.5-10.1) L Phosphorus Level 3.1 MG/DL (2.5-4.9) Magnesium Level 1.9 MG/DL (1.8-2.4) Total Bilirubin 0.3 MG/DL (0.2-1.0) Aspartate Amino Transf (AST/SGOT) 18 U/L (15-37) Alanine Aminotransferase (ALT/SGPT) 13 U/L (12-78) Alkaline Phosphatase 105 U/L (46-116) Troponin I 0.010 ng/mL (0.000-0.056) Pro-B-Type Natriuretic Peptide 3539 pg/mL (0-125) H Total Protein 6.0 G/DL (6.4-8.2) L Albumin 2.2 G/DL (3.4-5.0) L Globulin 3.8 g/dL Albumin/Globulin Ratio 0.6 (1.0-2.7) L Random Vancomycin Level 20.8 ug/mL Height (Feet): 5 Height (Inches): 2.00 Weight (Pounds): 130 General Appearance: alert Cardiovascular: normal rate Respiratory/Chest: normal breath sounds Abdominal Exam: soft Olivia Lubin NP Nov 13, 2017 11:31
[2017-11-13 12:00] VITALS: BP 108/66
[2017-11-13] MEDS: D5W w/KCl 20mEq 1,000 ML IV SCH ×3 (12:55→22:33)
--- NOTE | 2017-11-13 13:04 | Nephrology Progress Note ---
Assessment/Plan Problem List: (1) Acute renal failure (ARF) (2) Dehydration with hypernatremia (3) Severe sepsis (4) Shock (5) Dehydration, severe (6) Hypotension Assessment Acute kidney injury, likely on chronic kidney disease. Cr lowering Hypernatremia, with an initial sodium of 177. Na lowering Profound dehydration. improving Shock, likely septic. Hypercalcemia. on presentation Urinary tract infection. Has supraPubic cath History of traumatic brain injury, dementia, and seizure disorder. History of staghorn renal calculi with multiple UTIs, status post Plan D5W Albumin bolus PRN KCL, Mag , Phos as needed Antibiotics Anemia yarbrough Monitor renal parameters- Avoid Nephrotoxics midodrine , 10 TID, not taking PO Subjective ROS Limited/Unobtainable: Yes Objective Objective Last 24 Hour Vital Signs Date Time Temp Pulse Resp B/P (MAP) Pulse Ox O2 Delivery O2 Flow Rate FiO2 11/13/17 09:35 76 11/13/17 08:00 95.9 73 18 86/51 (63) 100 95.9 11/13/17 08:00 Nasal Cannula 3.0 11/13/17 04:00 96.2 71 2 110/64 (79) 100 96.2 11/13/17 04:00 76 11/13/17 04:00 Nasal Cannula 3.0 11/13/17 00:00 97.2 68 16 86/39 (55) 100 97.2 11/13/17 00:00 Nasal Cannula 3.0 11/12/17 23:53 70 11/12/17 20:00 97.0 80 16 91/62 (72) 100 97.0 11/12/17 20:00 Nasal Cannula 3.0 11/12/17 20:00 71 11/12/17 16:00 69 11/12/17 16:00 96.2 82 18 105/67 (80) 97 96.2 11/12/17 16:00 Nasal Cannula 3.0 Intake and Output 11/12/17 11/13/17 19:00 07:00 Intake Total 775 ml 980 ml Output Total 1700 ml 1200 ml Balance -925 ml -220 ml Intake IV Total 775 ml 980 ml Output Urine Total 1700 ml 1200 ml # Bowel Movements 4 100 Laboratory Tests 11/13/17 04:26: White Blood Count 6.6, Red Blood Count 3.34L, Hemoglobin 9.7L, Hematocrit 29.1L , Mean Corpuscular Volume 87, Mean Corpuscular Hemoglobin 29.1, Mean Corpuscular Hemoglobin Concent 33.4, Red Cell Distribution Width 12.9, Platelet Count 119L, Mean Platelet Volume 10.1, Neutrophils (%) (Auto) 68.6, Lymphocytes (%) (Auto) 23.0, Monocytes (%) (Auto) 4.3, Eosinophils (%) (Auto) 3.7H, Basophils (%) (Auto) 0.4, Sodium Level 155H, Potassium Level 3.5, Chloride Level 125H, Carbon Dioxide Level 19L, Anion Gap 11, Blood Urea Nitrogen 17, Creatinine 1.7H, Estimat Glomerular Filtration Rate 31.3, Glucose Level 86, Lactic Acid Level 1.80, Uric Acid 5.1, Calcium Level 7.4L, Phosphorus Level 3.1 , Magnesium Level 1.9, Total Bilirubin 0.3, Aspartate Amino Transf (AST/SGOT) 18 , Alanine Aminotransferase (ALT/SGPT) 13, Alkaline Phosphatase 105, Troponin I 0.010, Pro-B-Type Natriuretic Peptide 3539H, Total Protein 6.0L, Albumin 2.2L, Globulin 3.8, Albumin/Globulin Ratio 0.6L, Random Vancomycin Level 20.8 Height (Feet): 5 Height (Inches): 2.00 Weight (Pounds): 130 General Appearance: no apparent distress Cardiovascular: normal rate Respiratory/Chest: decreased breath sounds Abdomen: soft Parrish Luo MD Nov 13, 2017 13:04
[2017-11-13] MEDS: Vancomycin 500mg/D5W 110ml IVPB SCH ×2 (13:30)
--- NOTE | 2017-11-13 13:59 | Pulmonology Progress Note ---
Assessment/Plan Assessment/Plan ASSESSMENT: The patient is a 52-year-old half-way resident with history of dementia, traumatic brain injury, recurrent staghorn calculi, recurrent urinary tract infection, suprapubic catheter, prior trach, seizure disorder, nonverbal at baseline, presenting initially for desaturation, but now is stable respiratory dynamics, but concerned for sepsis and profound dehydration with acute kidney injury, anion gap, metabolic acidosis, lactic acidosis, and hemoconcentration all likely secondary to a source. PROBLEM LIST: 1. SIRS/sepsis. 2. Shock, likely septic. 3. Profound dehydration. 4. Hypernatremia, with an initial sodium of 177. 5. Anion gap metabolic acidosis, lactic acidosis. 6. Acute kidney injury, likely on chronic kidney disease. 7. Hypercalcemia. 8. Urinary tract infection. 9. History of traumatic brain injury, dementia, and seizure disorder. 10. History of prior tracheostomy, status post takedown. 11. History of staghorn renal calculi with multiple UTIs, status post suprapubic catheter placement. 12. residential resident. 13. Nonverbal at baseline. 14. Bed-bound. 15. Full Code. TREATMENT PLAN: 1. IVF per renal, replete electrolytes as able 2. Need to clarify feed situation, repeat CFD ENGINEER eval, bioethics eval, appreciate GI recs 3. Continue ERTA and LAWSON per ID, F/U Cx's 4. F/U recs 5. Heparin subcutaneous for DVT prophylaxis. 6. PRN O2, PRN HHN's 7. The patient is a Full Code, POLST reviewed by myself, we will need to discuss goals of care further. Subjective Allergies: Coded Allergies: CEFEPIME (Unverified Allergy, Unknown, 11/09/17) Subjective AFVSS, O2 needs stable Na and renal function better More alert Multiple messages left for son without call back Repeat CFD ENGINEER eval pending No cough, no SOB, no F/C, no distress Objective Last 24 Hour Vital Signs Date Time Temp Pulse Resp B/P (MAP) Pulse Ox O2 Delivery O2 Flow Rate FiO2 11/13/17 12:00 90 18 108/66 (80) 99 11/13/17 12:00 Nasal Cannula 3.0 11/13/17 09:35 76 11/13/17 08:00 95.9 73 18 86/51 (63) 100 95.9 11/13/17 08:00 Nasal Cannula 3.0 11/13/17 04:00 96.2 71 2 110/64 (79) 100 96.2 11/13/17 04:00 76 11/13/17 04:00 Nasal Cannula 3.0 11/13/17 00:00 97.2 68 16 86/39 (55) 100 97.2 11/13/17 00:00 Nasal Cannula 3.0 11/12/17 23:53 70 11/12/17 20:00 97.0 80 16 91/62 (72) 100 97.0 11/12/17 20:00 Nasal Cannula 3.0 11/12/17 20:00 71 11/12/17 16:00 69 11/12/17 16:00 96.2 82 18 105/67 (80) 97 96.2 11/12/17 16:00 Nasal Cannula 3.0 Intake and Output 11/12/17 11/13/17 19:00 07:00 Intake Total 775 ml 980 ml Output Total 1700 ml 1200 ml Balance -925 ml -220 ml Intake IV Total 775 ml 980 ml Output Urine Total 1700 ml 1200 ml # Bowel Movements 4 100 General Appearance: cachetic HEENT: normocephalic, atraumatic Respiratory/Chest: rhonchi Cardiovascular: normal peripheral pulses, normal rate, regular rhythm Abdomen: normal bowel sounds, soft, non tender, no organomegaly, non distended , other - SPC Extremities: no cyanosis, no clubbing, no edema, other - Contracted Microbiology Date/Time Source Procedure Growth Status 11/10/17 20:25 Rectum - Final NO CARBAPENEM-RESISTANT ENTEROBACTERI... Complete Laboratory Tests 11/13/17 04:26: White Blood Count 6.6, Red Blood Count 3.34L, Hemoglobin 9.7L, Hematocrit 29.1L , Mean Corpuscular Volume 87, Mean Corpuscular Hemoglobin 29.1, Mean Corpuscular Hemoglobin Concent 33.4, Red Cell Distribution Width 12.9, Platelet Count 119L, Mean Platelet Volume 10.1, Neutrophils (%) (Auto) 68.6, Lymphocytes (%) (Auto) 23.0, Monocytes (%) (Auto) 4.3, Eosinophils (%) (Auto) 3.7H, Basophils (%) (Auto) 0.4, Sodium Level 155H, Potassium Level 3.5, Chloride Level 125H, Carbon Dioxide Level 19L, Anion Gap 11, Blood Urea Nitrogen 17, Creatinine 1.7H, Estimat Glomerular Filtration Rate 31.3, Glucose Level 86, Lactic Acid Level 1.80, Uric Acid 5.1, Calcium Level 7.4L, Phosphorus Level 3.1 , Magnesium Level 1.9, Total Bilirubin 0.3, Aspartate Amino Transf (AST/SGOT) 18 , Alanine Aminotransferase (ALT/SGPT) 13, Alkaline Phosphatase 105, Troponin I 0.010, Pro-B-Type Natriuretic Peptide 3539H, Total Protein 6.0L, Albumin 2.2L, Globulin 3.8, Albumin/Globulin Ratio 0.6L, Random Vancomycin Level 20.8 Current Medications Medications (Trade) Dose Ordered Sig/Tay Route PRN Reason Start Time Stop Time Status Last Admin Dose Admin Acetaminophen (Tylenol) 650 mg Q6H PRN ORAL Mild Pain/Temp > 101 11/09/17 21:30 12/09/17 21:29 Albumin Human 500 ml @ 0 mls/hr Q0M ONCE IV 11/13/17 14:00 11/13/17 14:01 Dextrose/ Electrolytes 1,000 ml @ 100 mls/hr Q10H IV 11/13/17 13:04 12/13/17 13:03 11/13/17 13:28 Docusate Sodium (Colace) 100 mg TID ORAL 11/10/17 13:00 12/10/17 08:59 Ertapenem 0.5 gm/ Sodium Chloride 55 ml @ 110 mls/hr Q24H IVPB 11/11/17 20:00 11/16/17 19:59 11/12/17 20:50 Heparin Sodium (Porcine) (Heparin 5000 units/ml) 5,000 units EVERY 12 HOURS SUBQ 11/10/17 09:00 12/10/17 08:59 11/13/17 08:32 Levetiracetam 100 ml @ 400 mls/hr Q12HR IVPB 11/09/17 22:30 12/09/17 22:29 11/13/17 08:31 Midodrine (Pro-Amatine) 10 mg THREE TIMES A DAY ORAL 11/12/17 09:00 12/10/17 08:59 Ondansetron HCl (Zofran) 4 mg Q4H PRN IVP Nausea & Vomiting 11/09/17 21:30 12/09/17 21:29 Pantoprazole (Protonix) 40 mg DAILY IVP 11/10/17 09:00 12/10/17 08:59 11/13/17 08:31 Sennosides (Senokot) 1 tab DAILY PRN ORAL Constipation 11/09/17 21:30 12/09/17 21:29 Vancomycin HCl (Vanco rx to dose) 1 ea DAILY PRN MISC Per rx protocol 11/12/17 13:30 12/12/17 13:29 Vancomycin HCl 500 mg/Dextrose 110 ml @ 110 mls/hr Q24H IVPB 11/13/17 14:00 11/18/17 13:59 11/13/17 13:30 Jose Montalvo MD Nov 13, 2017 13:59
[2017-11-13 16:00] VITALS: BP 101/52
[2017-11-13 20:00] VITALS: BP 96/51
[2017-11-13] MEDS: Ertapenem 0.5 GM in NS 55 ML IVPB SCH (20:32)
--- NOTE | 2017-11-13 22:02 | Infectious Diseases Prog Note ---
Assessment/Plan Problems: (1) Acute pyelonephritis Assessment & Plan: with MDR Providencia stuartii, and MRSA , suspect due to right ureter stent obstruction, continue vancomycin to cover for MRSA , and ertapenem for MDR Providencia stuartii for two weeks total , urology eval is in progress , renal US is pending (2) Hydronephrosis of right kidney Assessment & Plan: suspect ureter stent malfunction , will order renal US, recommend urology eval (3) Severe sepsis Assessment & Plan: with staph simulans , most likely contamination , grew from one set only. already on vancomycin for two weeks for MRSA pyelonephritis (4) Renal failure Assessment & Plan: continue hydration , monitor renal function, avoid nephrotoxics (5) Hypernatremia Assessment & Plan: due to free water loss , continue hydration with close monitor of serum sodium (6) Left shoulder pain Assessment & Plan: due to chronic rotator cuff syndrom, as evident by X ray , folllow up with ortho (7) Colonization with VRE (vancomycin-resistant enterococcus) Assessment & Plan: keep in contact isolation (8) Hypotension Assessment & Plan: doubt due to sepsis , will order cortisol level to rule out adrenal insufficiency . repeated blood culture was ordered already Subjective ROS Limited/Unobtainable: Yes Allergies: Coded Allergies: CEFEPIME (Unverified Allergy, Unknown, 11/09/17) Subjective she was up in bed, awake, and alert, minimally verbal, doesn't follow commands, lethargic, a febrile Objective Vital Signs Last 24 Hour Vital Signs Date Time Temp Pulse Resp B/P (MAP) Pulse Ox O2 Delivery O2 Flow Rate FiO2 11/13/17 20:00 96.3 70 18 96/51 (66) 100 96.3 11/13/17 16:00 80 11/13/17 16:00 96.9 82 24 101/52 (68) 99 96.9 11/13/17 16:00 Nasal Cannula 3.0 11/13/17 12:30 73 11/13/17 12:00 90 18 108/66 (80) 99 11/13/17 12:00 Nasal Cannula 3.0 11/13/17 09:35 76 11/13/17 08:00 95.9 73 18 86/51 (63) 100 95.9 11/13/17 08:00 Nasal Cannula 3.0 11/13/17 04:00 96.2 71 2 110/64 (79) 100 96.2 11/13/17 04:00 76 11/13/17 04:00 Nasal Cannula 3.0 11/13/17 00:00 97.2 68 16 86/39 (55) 100 97.2 11/13/17 00:00 Nasal Cannula 3.0 11/12/17 23:53 70 Height (Feet): 5 Height (Inches): 2.00 Weight (Pounds): 130 General Appearance: WD/WN, no acute distress HEENT: normocephalic, atraumatic, anicteric, PERRL, supple, no JVD, other - dry oral mucosa Respiratory/Chest: chest wall non-tender, no respiratory distress, no accessory muscle use, decreased breath sounds, crackles/rales Cardiovascular: normal peripheral pulses, normal rate, regular rhythm, no gallop/murmur, no JVD Abdomen: normal bowel sounds, soft, non tender, no organomegaly, non distended , no mass, no scars Genitourinary: normal external genitalia Extremities: no cyanosis, no clubbing Skin: no rash, no lesions, no ulcers Neurologic/Psychiatric: alert, responsive Lymphatic: no neck adenopathy, no groin adenopathy Musculoskeletal: atrophy, other - contracton Laboratory Tests Test 11/13/17 04:26 White Blood Count 6.6 K/UL (4.8-10.8) Red Blood Count 3.34 M/UL (4.20-5.40) L Hemoglobin 9.7 G/DL (12.0-16.0) L Hematocrit 29.1 % (37.0-47.0) L Mean Corpuscular Volume 87 FL (80-99) Mean Corpuscular Hemoglobin 29.1 PG (27.0-31.0) Mean Corpuscular Hemoglobin Concent 33.4 G/DL (32.0-36.0) Red Cell Distribution Width 12.9 % (11.6-14.8) Platelet Count 119 K/UL (150-450) L Mean Platelet Volume 10.1 FL (6.5-10.1) Neutrophils (%) (Auto) 68.6 % (45.0-75.0) Lymphocytes (%) (Auto) 23.0 % (20.0-45.0) Monocytes (%) (Auto) 4.3 % (1.0-10.0) Eosinophils (%) (Auto) 3.7 % (0.0-3.0) H Basophils (%) (Auto) 0.4 % (0.0-2.0) Sodium Level 155 MMOL/L (136-145) H Potassium Level 3.5 MMOL/L (3.5-5.1) Chloride Level 125 MMOL/L (98-107) H Carbon Dioxide Level 19 MMOL/L (21-32) L Anion Gap 11 mmol/L (5-15) Blood Urea Nitrogen 17 mg/dL (7-18) Creatinine 1.7 MG/DL (0.55-1.30) H Estimat Glomerular Filtration Rate 31.3 mL/min (>60) Glucose Level 86 MG/DL (74-106) Lactic Acid Level 1.80 mmol/L (0.4-2.0) Uric Acid 5.1 MG/DL (2.6-7.2) Calcium Level 7.4 MG/DL (8.5-10.1) L Phosphorus Level 3.1 MG/DL (2.5-4.9) Magnesium Level 1.9 MG/DL (1.8-2.4) Total Bilirubin 0.3 MG/DL (0.2-1.0) Aspartate Amino Transf (AST/SGOT) 18 U/L (15-37) Alanine Aminotransferase (ALT/SGPT) 13 U/L (12-78) Alkaline Phosphatase 105 U/L (46-116) Troponin I 0.010 ng/mL (0.000-0.056) Pro-B-Type Natriuretic Peptide 3539 pg/mL (0-125) H Total Protein 6.0 G/DL (6.4-8.2) L Albumin 2.2 G/DL (3.4-5.0) L Globulin 3.8 g/dL Albumin/Globulin Ratio 0.6 (1.0-2.7) L Random Vancomycin Level 20.8 ug/mL Current Medications Medications (Trade) Dose Ordered Sig/Tay Route PRN Reason Start Time Stop Time Status Last Admin Dose Admin Acetaminophen (Tylenol) 650 mg Q6H PRN ORAL Mild Pain/Temp > 101 11/09/17 21:30 12/09/17 21:29 Dextrose/ Electrolytes 1,000 ml @ 100 mls/hr Q10H IV 11/13/17 13:04 12/13/17 13:03 11/13/17 13:28 Docusate Sodium (Colace) 100 mg TID ORAL 11/10/17 13:00 12/10/17 08:59 Ertapenem 0.5 gm/ Sodium Chloride 55 ml @ 110 mls/hr Q24H IVPB 11/11/17 20:00 11/16/17 19:59 11/13/17 20:32 Heparin Sodium (Porcine) (Heparin 5000 units/ml) 5,000 units EVERY 12 HOURS SUBQ 11/10/17 09:00 12/10/17 08:59 11/13/17 20:34 Levetiracetam 100 ml @ 400 mls/hr Q12HR IVPB 11/09/17 22:30 12/09/17 22:29 11/13/17 20:32 Midodrine (Pro-Amatine) 10 mg THREE TIMES A DAY ORAL 11/12/17 09:00 12/10/17 08:59 Ondansetron HCl (Zofran) 4 mg Q4H PRN IVP Nausea & Vomiting 11/09/17 21:30 12/09/17 21:29 Pantoprazole (Protonix) 40 mg DAILY IVP 11/10/17 09:00 12/10/17 08:59 11/13/17 08:31 Sennosides (Senokot) 1 tab DAILY PRN ORAL Constipation 11/09/17 21:30 12/09/17 21:29 Vancomycin HCl (Vanco rx to dose) 1 ea DAILY PRN MISC Per rx protocol 11/12/17 13:30 12/12/17 13:29 Vancomycin HCl 500 mg/Dextrose 110 ml @ 110 mls/hr Q24H IVPB 11/13/17 14:00 11/18/17 13:59 11/13/17 13:30 Kortney Quiñones M.D. Nov 13, 2017 22:02
[2017-11-14] VITALS: BP 105/64
[2017-11-14 04:00] VITALS: BP 97/59
[2017-11-14 05:59] LABS: BASOPHILS % (AUTO) 0.4 % (0.0-2.0); EOSINOPHILS % (AUTO) 3.5 % (0.0-3.0); HEMATOCRIT 30.5 % (37.0-47.0); HEMOGLOBIN 10.1 G/DL (12.0-16.0); LYMPHOCYTES % (AUTO) 17.9 % (20.0-45.0); MEAN CORPUSCULAR VOLUME 87 FL (80-99); MONOCYTES % (AUTO) 5.1 % (1.0-10.0); NEUTROPHILS % (AUTO) 73.1 % (45.0-75.0); PLATELET COUNT 129 K/UL (150-450); RED CELL DISTRIBUTION WIDTH 13.5 % (11.6-14.8); WHITE BLOOD COUNT 6.1 K/UL (4.8-10.8)
[2017-11-14 06:26] LABS: ANION GAP 10 mmol/L (5-15); BLOOD UREA NITROGEN 12 mg/dL (7-18); CALCIUM 8.4 MG/DL (8.5-10.1); CARBON DIOXIDE 20 MMOL/L (21-32); CHLORIDE 127 MMOL/L (98-107); CREATININE 1.5 MG/DL (0.55-1.30); POTASSIUM 3.7 MMOL/L (3.5-5.1); SODIUM 157 MMOL/L (136-145)
[2017-11-14 08:00] VITALS: BP 104/56
[2017-11-14] MEDS: levETIRAcetam 500mg/NS100ml 100 ML IVPB SCH ×2 (08:50→21:03)
[2017-11-14] MEDS: Pantoprazole Inj IVP SCH (08:50)
[2017-11-14] MEDS: Midodrine 10mg tab ORAL SCH ×3 (08:51→18:00)
[2017-11-14] MEDS: Docusate 100mg cap ORAL SCH ×3 (08:51→18:00)
[2017-11-14] MEDS: Heparin 5000 units/ml inj SUBQ SCH ×2 (08:58→21:05)
--- NOTE | 2017-11-14 09:17 | Urology Progress Note ---
Assessment/Plan Assessment/Plan 1. History of hydronephrosis that is chronic. 2. Renal insufficiency, acute on chronic, slowly improving. 3. Hematuria. 4. Pyuria. 5. Proteinuria. 6. Urinary retention with chronic suprapubic tube. 7. Neurogenic bladder. sp tube indwelling hand irrigated, patent abx as ordered monitor renal fxn need old recs Subjective Allergies: Coded Allergies: CEFEPIME (Unverified Allergy, Unknown, 11/09/17) Subjective all noted Objective Last 24 Hour Vital Signs Date Time Temp Pulse Resp B/P (MAP) Pulse Ox O2 Delivery O2 Flow Rate FiO2 11/14/17 04:00 79 11/14/17 04:00 Nasal Cannula 3.0 11/14/17 04:00 97.4 79 20 97/59 (72) 99 97.4 11/14/17 00:00 95.8 79 21 105/64 (78) 99 95.8 11/14/17 00:00 85 11/14/17 00:00 Nasal Cannula 3.0 11/13/17 20:00 96.3 70 18 96/51 (66) 100 96.3 11/13/17 20:00 Nasal Cannula 3.0 11/13/17 20:00 69 11/13/17 16:00 80 11/13/17 16:00 96.9 82 24 101/52 (68) 99 96.9 11/13/17 16:00 Nasal Cannula 3.0 11/13/17 12:30 73 11/13/17 12:00 90 18 108/66 (80) 99 11/13/17 12:00 Nasal Cannula 3.0 11/13/17 09:35 76 Intake and Output 11/13/17 11/14/17 19:00 07:00 Intake Total 610 ml Output Total 1600 ml 1800 ml Balance -990 ml -1800 ml Intake IV Total 610 ml Output Urine Total 1600 ml 1800 ml # Bowel Movements 30 30 Microbiology Date/Time Source Procedure Growth Status 11/09/17 13:20 Blood Blood Culture - Final Staphylococcus Simulans Complete 11/09/17 20:25 Nasal Nares MRSA Culture - Final Staphylococcus Aureus - Mrsa Complete 11/09/17 13:30 Urine,Clean Catch Urine Culture - Final Providencia Stuartii Staphylococcus Aureus - Mrsa Complete 11/10/17 20:25 Rectum - Final NO CARBAPENEM-RESISTANT ENTEROBACTERI... Complete Current Medications Medications (Trade) Dose Ordered Sig/Tay Route PRN Reason Start Time Stop Time Status Last Admin Dose Admin Acetaminophen (Tylenol) 650 mg Q6H PRN ORAL Mild Pain/Temp > 101 11/09/17 21:30 12/09/17 21:29 Dextrose 1,000 ml @ 125 mls/hr Q8H IV 11/14/17 08:15 12/14/17 08:14 11/14/17 09:15 Docusate Sodium (Colace) 100 mg TID ORAL 11/10/17 13:00 12/10/17 08:59 Ertapenem 0.5 gm/ Sodium Chloride 55 ml @ 110 mls/hr Q24H IVPB 11/11/17 20:00 11/16/17 19:59 11/13/17 20:32 Heparin Sodium (Porcine) (Heparin 5000 units/ml) 5,000 units EVERY 12 HOURS SUBQ 11/10/17 09:00 12/10/17 08:59 11/14/17 08:58 Levetiracetam 100 ml @ 400 mls/hr Q12HR IVPB 11/09/17 22:30 12/09/17 22:29 11/14/17 08:50 Midodrine (Pro-Amatine) 10 mg THREE TIMES A DAY ORAL 11/12/17 09:00 12/10/17 08:59 Ondansetron HCl (Zofran) 4 mg Q4H PRN IVP Nausea & Vomiting 11/09/17 21:30 12/09/17 21:29 Pantoprazole (Protonix) 40 mg DAILY IVP 11/10/17 09:00 12/10/17 08:59 11/14/17 08:50 Sennosides (Senokot) 1 tab DAILY PRN ORAL Constipation 11/09/17 21:30 12/09/17 21:29 Vancomycin HCl (Vanco rx to dose) 1 ea DAILY PRN MISC Per rx protocol 11/12/17 13:30 12/12/17 13:29 Vancomycin HCl 500 mg/Dextrose 110 ml @ 110 mls/hr Q24H IVPB 11/13/17 14:00 11/18/17 13:59 11/13/17 13:30 Laboratory Tests 11/14/17 04:58: White Blood Count 6.1, Red Blood Count 3.50L, Hemoglobin 10.1L, Hematocrit 30.5L , Mean Corpuscular Volume 87, Mean Corpuscular Hemoglobin 28.9, Mean Corpuscular Hemoglobin Concent 33.2, Red Cell Distribution Width 13.5, Platelet Count 129L, Mean Platelet Volume 9.6, Neutrophils (%) (Auto) 73.1, Lymphocytes ( %) (Auto) 17.9L, Monocytes (%) (Auto) 5.1, Eosinophils (%) (Auto) 3.5H, Basophils (%) (Auto) 0.4, Sodium Level 157H, Potassium Level 3.7, Chloride Level 127H, Carbon Dioxide Level 20L, Anion Gap 10, Blood Urea Nitrogen 12, Creatinine 1.5H, Estimat Glomerular Filtration Rate 36.2, Glucose Level 120H, Calcium Level 8.4L, Cortisol AM Sample [Pending] Height (Feet): 5 Height (Inches): 2.00 Weight (Pounds): 130 Objective exam stable WILBER GALINDO Nov 14, 2017 09:17
--- NOTE | 2017-11-14 09:55 | Nephrology Progress Note ---
Assessment/Plan Problem List: (1) Acute renal failure (ARF) (2) Dehydration with hypernatremia (3) Severe sepsis (4) Shock (5) Dehydration, severe (6) Hypotension Assessment Acute kidney injury, likely on chronic kidney disease. Cr lowering Hypernatremia, with an initial sodium of 177. Na lowering Profound dehydration. improving Shock, likely septic. Hypercalcemia. on presentation Urinary tract infection. Has supraPubic cath History of traumatic brain injury, dementia, and seizure disorder. History of staghorn renal calculi with multiple UTIs, status post Plan D5W Albumin bolus PRN KCL, Mag , Phos as needed Antibiotics Anemia yarbrough Monitor renal parameters- Avoid Nephrotoxics midodrine , 10 TID, not taking PO DC planning ? PEG ? BioEthics ? Subjective ROS Limited/Unobtainable: Yes Constitutional: Reports: malaise, weakness Objective Objective Last 24 Hour Vital Signs Date Time Temp Pulse Resp B/P (MAP) Pulse Ox O2 Delivery O2 Flow Rate FiO2 11/14/17 04:00 79 11/14/17 04:00 Nasal Cannula 3.0 11/14/17 04:00 97.4 79 20 97/59 (72) 99 97.4 11/14/17 00:00 95.8 79 21 105/64 (78) 99 95.8 11/14/17 00:00 85 11/14/17 00:00 Nasal Cannula 3.0 11/13/17 20:00 96.3 70 18 96/51 (66) 100 96.3 11/13/17 20:00 Nasal Cannula 3.0 11/13/17 20:00 69 11/13/17 16:00 80 11/13/17 16:00 96.9 82 24 101/52 (68) 99 96.9 11/13/17 16:00 Nasal Cannula 3.0 11/13/17 12:30 73 11/13/17 12:00 90 18 108/66 (80) 99 11/13/17 12:00 Nasal Cannula 3.0 Intake and Output 11/13/17 11/14/17 19:00 07:00 Intake Total 610 ml Output Total 1600 ml 1800 ml Balance -990 ml -1800 ml Intake IV Total 610 ml Output Urine Total 1600 ml 1800 ml # Bowel Movements 30 30 Laboratory Tests 11/14/17 04:58: White Blood Count 6.1, Red Blood Count 3.50L, Hemoglobin 10.1L, Hematocrit 30.5L , Mean Corpuscular Volume 87, Mean Corpuscular Hemoglobin 28.9, Mean Corpuscular Hemoglobin Concent 33.2, Red Cell Distribution Width 13.5, Platelet Count 129L, Mean Platelet Volume 9.6, Neutrophils (%) (Auto) 73.1, Lymphocytes ( %) (Auto) 17.9L, Monocytes (%) (Auto) 5.1, Eosinophils (%) (Auto) 3.5H, Basophils (%) (Auto) 0.4, Sodium Level 157H, Potassium Level 3.7, Chloride Level 127H, Carbon Dioxide Level 20L, Anion Gap 10, Blood Urea Nitrogen 12, Creatinine 1.5H, Estimat Glomerular Filtration Rate 36.2, Glucose Level 120H, Calcium Level 8.4L, Cortisol AM Sample [Pending] Height (Feet): 5 Height (Inches): 2.00 Weight (Pounds): 130 General Appearance: no apparent distress Cardiovascular: normal rate Respiratory/Chest: decreased breath sounds Abdomen: soft Objective no change Parrish Luo MD Nov 14, 2017 09:55
--- NOTE | 2017-11-14 11:07 | GI Progress Note ---
Assessment/Plan Problems: (1) Electrolyte imbalance ICD Codes: E87.8 - Other disorders of electrolyte and fluid balance, not elsewhere classified SNOMED: 822372107 (2) Encounter for PEG (percutaneous endoscopic gastrostomy) ICD Codes: Z43.1 - Encounter for attention to gastrostomy SNOMED: 514863911, 898373174 (3) Dehydration ICD Codes: E86.0 - Dehydration SNOMED: 25296063 (4) Dehydration, severe ICD Codes: E86.0 - Dehydration SNOMED: 020309063 Status: unchanged Status Narrative Discussed with Dr. Chan. Assessment/Plan POLST reviewed >> No artificial feedings. unable to contact the son, voicemail left >> NGTF vs PEG to be scheduled if family agrees bioethics ordered, patient has be NPO since admission. ST not done, patient unable to participate IV hydration electrolyte correction per Nephro ppi bowel regime fu labs The patient was seen and examined at bedside and all new and available data was reviewed in the patients chart. I agree with the above findings, impression and plan. (Patient seen earlier today. Signature stamp does not reflect patient encounter time.). - Laith Chan MD Subjective Subjective limited Objective Last 24 Hour Vital Signs Date Time Temp Pulse Resp B/P (MAP) Pulse Ox O2 Delivery O2 Flow Rate FiO2 11/14/17 04:00 79 11/14/17 04:00 Nasal Cannula 3.0 11/14/17 04:00 97.4 79 20 97/59 (72) 99 97.4 11/14/17 00:00 95.8 79 21 105/64 (78) 99 95.8 11/14/17 00:00 85 11/14/17 00:00 Nasal Cannula 3.0 11/13/17 20:00 96.3 70 18 96/51 (66) 100 96.3 11/13/17 20:00 Nasal Cannula 3.0 11/13/17 20:00 69 11/13/17 16:00 80 11/13/17 16:00 96.9 82 24 101/52 (68) 99 96.9 11/13/17 16:00 Nasal Cannula 3.0 11/13/17 12:30 73 11/13/17 12:00 90 18 108/66 (80) 99 11/13/17 12:00 Nasal Cannula 3.0 Intake and Output 11/13/17 11/14/17 19:00 07:00 Intake Total 610 ml Output Total 1600 ml 1800 ml Balance -990 ml -1800 ml Intake IV Total 610 ml Output Urine Total 1600 ml 1800 ml # Bowel Movements 30 30 Laboratory Tests Test 11/14/17 04:58 White Blood Count 6.1 K/UL (4.8-10.8) Red Blood Count 3.50 M/UL (4.20-5.40) L Hemoglobin 10.1 G/DL (12.0-16.0) L Hematocrit 30.5 % (37.0-47.0) L Mean Corpuscular Volume 87 FL (80-99) Mean Corpuscular Hemoglobin 28.9 PG (27.0-31.0) Mean Corpuscular Hemoglobin Concent 33.2 G/DL (32.0-36.0) Red Cell Distribution Width 13.5 % (11.6-14.8) Platelet Count 129 K/UL (150-450) L Mean Platelet Volume 9.6 FL (6.5-10.1) Neutrophils (%) (Auto) 73.1 % (45.0-75.0) Lymphocytes (%) (Auto) 17.9 % (20.0-45.0) L Monocytes (%) (Auto) 5.1 % (1.0-10.0) Eosinophils (%) (Auto) 3.5 % (0.0-3.0) H Basophils (%) (Auto) 0.4 % (0.0-2.0) Sodium Level 157 MMOL/L (136-145) H Potassium Level 3.7 MMOL/L (3.5-5.1) Chloride Level 127 MMOL/L (98-107) H Carbon Dioxide Level 20 MMOL/L (21-32) L Anion Gap 10 mmol/L (5-15) Blood Urea Nitrogen 12 mg/dL (7-18) Creatinine 1.5 MG/DL (0.55-1.30) H Estimat Glomerular Filtration Rate 36.2 mL/min (>60) Glucose Level 120 MG/DL (74-106) H Calcium Level 8.4 MG/DL (8.5-10.1) L Cortisol AM Sample 14.7 UG/DL Height (Feet): 5 Height (Inches): 2.00 Weight (Pounds): 130 General Appearance: WD/WN, no apparent distress, alert Cardiovascular: normal rate Respiratory/Chest: normal breath sounds, no respiratory distress Abdominal Exam: normal bowel sounds, non tender, soft Extremities: normal range of motion, non-tender Olivia Lubin NP Nov 14, 2017 11:07
[2017-11-14 12:00] VITALS: BP 110/72
[2017-11-14] MEDS: Vancomycin 500mg/D5W 110ml IVPB SCH ×2 (13:58)
--- NOTE | 2017-11-14 14:25 | Pulmonology Progress Note ---
Assessment/Plan Assessment/Plan ASSESSMENT: The patient is a 52-year-old long-term resident with history of dementia, traumatic brain injury, recurrent staghorn calculi, recurrent urinary tract infection, suprapubic catheter, prior trach, seizure disorder, nonverbal at baseline, presenting initially for desaturation, but now is stable respiratory dynamics, but concerned for sepsis and profound dehydration with acute kidney injury, anion gap, metabolic acidosis, lactic acidosis, and hemoconcentration all likely secondary to a source. PROBLEM LIST: 1. SIRS/sepsis. 2. Shock, likely septic. 3. Profound dehydration. 4. Hypernatremia, with an initial sodium of 177. 5. Anion gap metabolic acidosis, lactic acidosis. 6. Acute kidney injury, likely on chronic kidney disease. 7. Hypercalcemia. 8. Urinary tract infection. 9. History of traumatic brain injury, dementia, and seizure disorder. 10. History of prior tracheostomy, status post takedown. 11. History of staghorn renal calculi with multiple UTIs, status post suprapubic catheter placement. 12. care home resident. 13. Nonverbal at baseline. 14. Bed-bound. 15. Full Code. TREATMENT PLAN: 1. IVF per renal, replete electrolytes as able 2. Need to clarify feed situation, repeat TRAFFIC MAINTENANCE SUPERVISOR eval, bioethics eval, appreciate GI recs - per TRAFFIC MAINTENANCE SUPERVISOR son consented, will clarify 3. Continue ERTA and VANCO per ID, F/U Cx's 4. F/U recs 5. Heparin subcutaneous for DVT prophylaxis. 6. PRN O2, PRN HHN's 7. The patient is a Full Code, POLST reviewed by myself, we will need to discuss goals of care further. Subjective Allergies: Coded Allergies: CEFEPIME (Unverified Allergy, Unknown, 11/09/17) Subjective AFVSS, O2 needs stable Cr 1.5, failed TRAFFIC MAINTENANCE SUPERVISOR More alert but MS waxes and wanes Per TRAFFIC MAINTENANCE SUPERVISOR son consented to PEG, need to verify No cough, no SOB, no F/C, no distress Objective Last 24 Hour Vital Signs Date Time Temp Pulse Resp B/P (MAP) Pulse Ox O2 Delivery O2 Flow Rate FiO2 11/14/17 12:00 97.5 89 24 110/72 (85) 99 97.5 11/14/17 12:00 Nasal Cannula 3.0 11/14/17 12:00 77 11/14/17 08:00 97.0 82 24 104/56 (72) 98 97.0 11/14/17 08:00 Nasal Cannula 3.0 11/14/17 04:00 79 11/14/17 04:00 Nasal Cannula 3.0 11/14/17 04:00 97.4 79 20 97/59 (72) 99 97.4 11/14/17 00:00 95.8 79 21 105/64 (78) 99 95.8 11/14/17 00:00 85 11/14/17 00:00 Nasal Cannula 3.0 11/13/17 20:00 96.3 70 18 96/51 (66) 100 96.3 11/13/17 20:00 Nasal Cannula 3.0 11/13/17 20:00 69 11/13/17 16:00 80 11/13/17 16:00 96.9 82 24 101/52 (68) 99 96.9 11/13/17 16:00 Nasal Cannula 3.0 Intake and Output 11/13/17 11/14/17 19:00 07:00 Intake Total 610 ml Output Total 1600 ml 1800 ml Balance -990 ml -1800 ml Intake IV Total 610 ml Output Urine Total 1600 ml 1800 ml # Bowel Movements 30 30 General Appearance: no acute distress, cachetic HEENT: normocephalic, atraumatic, anicteric, mucous membranes moist Respiratory/Chest: chest wall non-tender, lungs clear, normal breath sounds, no respiratory distress Cardiovascular: normal peripheral pulses, normal rate, regular rhythm Abdomen: normal bowel sounds, soft, non tender, no organomegaly, non distended , other - SPC Extremities: no cyanosis, no clubbing, no edema, other - contracted Laboratory Tests 11/14/17 04:58: White Blood Count 6.1, Red Blood Count 3.50L, Hemoglobin 10.1L, Hematocrit 30.5L , Mean Corpuscular Volume 87, Mean Corpuscular Hemoglobin 28.9, Mean Corpuscular Hemoglobin Concent 33.2, Red Cell Distribution Width 13.5, Platelet Count 129L, Mean Platelet Volume 9.6, Neutrophils (%) (Auto) 73.1, Lymphocytes ( %) (Auto) 17.9L, Monocytes (%) (Auto) 5.1, Eosinophils (%) (Auto) 3.5H, Basophils (%) (Auto) 0.4, Sodium Level 157H, Potassium Level 3.7, Chloride Level 127H, Carbon Dioxide Level 20L, Anion Gap 10, Blood Urea Nitrogen 12, Creatinine 1.5H, Estimat Glomerular Filtration Rate 36.2, Glucose Level 120H, Calcium Level 8.4L Current Medications Medications (Trade) Dose Ordered Sig/Tay Route PRN Reason Start Time Stop Time Status Last Admin Dose Admin Acetaminophen (Tylenol) 650 mg Q6H PRN ORAL Mild Pain/Temp > 101 11/09/17 21:30 12/09/17 21:29 Dextrose 1,000 ml @ 125 mls/hr Q8H IV 11/14/17 08:15 12/14/17 08:14 11/14/17 09:15 Docusate Sodium (Colace) 100 mg TID ORAL 11/10/17 13:00 12/10/17 08:59 Ertapenem 0.5 gm/ Sodium Chloride 55 ml @ 110 mls/hr Q24H IVPB 11/11/17 20:00 11/16/17 19:59 11/13/17 20:32 Heparin Sodium (Porcine) (Heparin 5000 units/ml) 5,000 units EVERY 12 HOURS SUBQ 11/10/17 09:00 12/10/17 08:59 11/14/17 08:58 Levetiracetam 100 ml @ 400 mls/hr Q12HR IVPB 11/09/17 22:30 12/09/17 22:29 11/14/17 08:50 Midodrine (Pro-Amatine) 10 mg THREE TIMES A DAY ORAL 11/12/17 09:00 12/10/17 08:59 Ondansetron HCl (Zofran) 4 mg Q4H PRN IVP Nausea & Vomiting 11/09/17 21:30 12/09/17 21:29 Pantoprazole (Protonix) 40 mg DAILY IVP 11/10/17 09:00 12/10/17 08:59 11/14/17 08:50 Sennosides (Senokot) 1 tab DAILY PRN ORAL Constipation 11/09/17 21:30 12/09/17 21:29 Vancomycin HCl (Vanco rx to dose) 1 ea DAILY PRN MISC Per rx protocol 11/12/17 13:30 12/12/17 13:29 Vancomycin HCl 500 mg/Dextrose 110 ml @ 110 mls/hr Q24H IVPB 11/13/17 14:00 11/18/17 13:59 11/14/17 13:58 Jose Montalvo MD Nov 14, 2017 14:25
--- NOTE | 2017-11-14 14:36 | Infectious Diseases Prog Note ---
Assessment/Plan Problems: (1) Acute pyelonephritis Assessment & Plan: with MDR Providencia stuartii, and MRSA , suspect due to right ureter stent obstruction, continue vancomycin to cover for MRSA , and ertapenem for MDR Providencia stuartii for two weeks total , urology eval is in progress , may need stent removal . (2) Hydronephrosis of right kidney Assessment & Plan: suspect ureter stent malfunction , urology eval is in progress, may need stent removal (3) Severe sepsis Assessment & Plan: with staph simulans , most likely contamination , grew from one set only. already on vancomycin for two weeks for MRSA pyelonephritis, repeated blood culture is pending (4) Renal failure Assessment & Plan: continue hydration , monitor renal function, avoid nephrotoxics (5) Hypernatremia Assessment & Plan: due to free water loss , continue hydration with close monitor of serum sodium (6) Left shoulder pain Assessment & Plan: due to chronic rotator cuff syndrom, as evident by X ray , folllow up with ortho (7) Colonization with VRE (vancomycin-resistant enterococcus) Assessment & Plan: keep in contact isolation (8) Hypotension Assessment & Plan: doubt due to sepsis , will order cortisol level to rule out adrenal insufficiency . repeated blood culture was ordered already Subjective ROS Limited/Unobtainable: Yes Allergies: Coded Allergies: CEFEPIME (Unverified Allergy, Unknown, 11/09/17) Subjective she was up in bed, more awake, and alert, minimally verbal, follows commands, a febrile Objective Vital Signs Last 24 Hour Vital Signs Date Time Temp Pulse Resp B/P (MAP) Pulse Ox O2 Delivery O2 Flow Rate FiO2 11/14/17 12:00 97.5 89 24 110/72 (85) 99 97.5 11/14/17 12:00 Nasal Cannula 3.0 11/14/17 12:00 77 11/14/17 08:00 97.0 82 24 104/56 (72) 98 97.0 11/14/17 08:00 Nasal Cannula 3.0 11/14/17 04:00 79 11/14/17 04:00 Nasal Cannula 3.0 11/14/17 04:00 97.4 79 20 97/59 (72) 99 97.4 11/14/17 00:00 95.8 79 21 105/64 (78) 99 95.8 11/14/17 00:00 85 11/14/17 00:00 Nasal Cannula 3.0 11/13/17 20:00 96.3 70 18 96/51 (66) 100 96.3 11/13/17 20:00 Nasal Cannula 3.0 11/13/17 20:00 69 11/13/17 16:00 80 11/13/17 16:00 96.9 82 24 101/52 (68) 99 96.9 11/13/17 16:00 Nasal Cannula 3.0 Height (Feet): 5 Height (Inches): 2.00 Weight (Pounds): 130 General Appearance: WD/WN, no acute distress HEENT: normocephalic, atraumatic, anicteric, mucous membranes moist, PERRL Respiratory/Chest: chest wall non-tender, lungs clear, normal breath sounds, no respiratory distress, no accessory muscle use Cardiovascular: normal peripheral pulses, normal rate, regular rhythm, no gallop/murmur, no JVD Abdomen: normal bowel sounds, soft, non tender, no organomegaly, non distended , no mass, no scars Extremities: no cyanosis, no clubbing Skin: no rash, no lesions, no ulcers Neurologic/Psychiatric: alert, responsive Laboratory Tests Test 11/14/17 04:58 White Blood Count 6.1 K/UL (4.8-10.8) Red Blood Count 3.50 M/UL (4.20-5.40) L Hemoglobin 10.1 G/DL (12.0-16.0) L Hematocrit 30.5 % (37.0-47.0) L Mean Corpuscular Volume 87 FL (80-99) Mean Corpuscular Hemoglobin 28.9 PG (27.0-31.0) Mean Corpuscular Hemoglobin Concent 33.2 G/DL (32.0-36.0) Red Cell Distribution Width 13.5 % (11.6-14.8) Platelet Count 129 K/UL (150-450) L Mean Platelet Volume 9.6 FL (6.5-10.1) Neutrophils (%) (Auto) 73.1 % (45.0-75.0) Lymphocytes (%) (Auto) 17.9 % (20.0-45.0) L Monocytes (%) (Auto) 5.1 % (1.0-10.0) Eosinophils (%) (Auto) 3.5 % (0.0-3.0) H Basophils (%) (Auto) 0.4 % (0.0-2.0) Sodium Level 157 MMOL/L (136-145) H Potassium Level 3.7 MMOL/L (3.5-5.1) Chloride Level 127 MMOL/L (98-107) H Carbon Dioxide Level 20 MMOL/L (21-32) L Anion Gap 10 mmol/L (5-15) Blood Urea Nitrogen 12 mg/dL (7-18) Creatinine 1.5 MG/DL (0.55-1.30) H Estimat Glomerular Filtration Rate 36.2 mL/min (>60) Glucose Level 120 MG/DL (74-106) H Calcium Level 8.4 MG/DL (8.5-10.1) L Current Medications Medications (Trade) Dose Ordered Sig/Tay Route PRN Reason Start Time Stop Time Status Last Admin Dose Admin Acetaminophen (Tylenol) 650 mg Q6H PRN ORAL Mild Pain/Temp > 101 11/09/17 21:30 12/09/17 21:29 Dextrose 1,000 ml @ 125 mls/hr Q8H IV 11/14/17 08:15 12/14/17 08:14 11/14/17 09:15 Docusate Sodium (Colace) 100 mg TID ORAL 11/10/17 13:00 12/10/17 08:59 Ertapenem 0.5 gm/ Sodium Chloride 55 ml @ 110 mls/hr Q24H IVPB 11/11/17 20:00 11/16/17 19:59 11/13/17 20:32 Heparin Sodium (Porcine) (Heparin 5000 units/ml) 5,000 units EVERY 12 HOURS SUBQ 11/10/17 09:00 12/10/17 08:59 11/14/17 08:58 Levetiracetam 100 ml @ 400 mls/hr Q12HR IVPB 11/09/17 22:30 12/09/17 22:29 11/14/17 08:50 Midodrine (Pro-Amatine) 10 mg THREE TIMES A DAY ORAL 11/12/17 09:00 12/10/17 08:59 Ondansetron HCl (Zofran) 4 mg Q4H PRN IVP Nausea & Vomiting 11/09/17 21:30 12/09/17 21:29 Pantoprazole (Protonix) 40 mg DAILY IVP 11/10/17 09:00 12/10/17 08:59 11/14/17 08:50 Sennosides (Senokot) 1 tab DAILY PRN ORAL Constipation 11/09/17 21:30 12/09/17 21:29 Vancomycin HCl (Vanco rx to dose) 1 ea DAILY PRN MISC Per rx protocol 11/12/17 13:30 12/12/17 13:29 Vancomycin HCl 500 mg/Dextrose 110 ml @ 110 mls/hr Q24H IVPB 11/13/17 14:00 11/18/17 13:59 11/14/17 13:58 Kortney Quiñones M.D. Nov 14, 2017 14:36
[2017-11-14 16:00] VITALS: BP 102/54
[2017-11-14 20:00] VITALS: BP 121/77
[2017-11-14] MEDS: Ertapenem 0.5 GM in NS 55 ML IVPB SCH (21:03)
[2017-11-15] VITALS: BP 124/72
[2017-11-15 04:00] VITALS: BP 91/56
[2017-11-15 06:08] LABS: BASOPHILS % (AUTO) 0.6 % (0.0-2.0); EOSINOPHILS % (AUTO) 2.8 % (0.0-3.0); HEMATOCRIT 32.3 % (37.0-47.0); HEMOGLOBIN 10.7 G/DL (12.0-16.0); LYMPHOCYTES % (AUTO) 26.4 % (20.0-45.0); MEAN CORPUSCULAR VOLUME 87 FL (80-99); MONOCYTES % (AUTO) 6.6 % (1.0-10.0); NEUTROPHILS % (AUTO) 63.6 % (45.0-75.0); PLATELET COUNT 138 K/UL (150-450); RED CELL DISTRIBUTION WIDTH 13.6 % (11.6-14.8); WHITE BLOOD COUNT 5.2 K/UL (4.8-10.8)
[2017-11-15 06:39] LABS: ANION GAP 11 mmol/L (5-15); BLOOD UREA NITROGEN 9 mg/dL (7-18); CALCIUM 8.6 MG/DL (8.5-10.1); CARBON DIOXIDE 21 MMOL/L (21-32); CHLORIDE 121 MMOL/L (98-107); CREATININE 1.5 MG/DL (0.55-1.30); POTASSIUM 3.6 MMOL/L (3.5-5.1); SODIUM 153 MMOL/L (136-145)
--- NOTE | 2017-11-15 07:13 | General Progress Note ---
Assessment/Plan Problem List: (1) Hypotension ICD Codes: I95.9 - Hypotension, unspecified SNOMED: 08544480 (2) Encounter for PEG (percutaneous endoscopic gastrostomy) ICD Codes: Z43.1 - Encounter for attention to gastrostomy SNOMED: 902443116, 178342169 (3) Dehydration ICD Codes: E86.0 - Dehydration SNOMED: 49554849 (4) Colonization with VRE (vancomycin-resistant enterococcus) ICD Codes: Z22.338 - Carrier of other streptococcus SNOMED: 076881858 Assessment/Plan family agreed to PEG placement plan for Friday Subjective ROS Limited/Unobtainable: No Allergies: Coded Allergies: CEFEPIME (Unverified Allergy, Unknown, 11/09/17) Objective Last 24 Hour Vital Signs Date Time Temp Pulse Resp B/P (MAP) Pulse Ox O2 Delivery O2 Flow Rate FiO2 11/15/17 04:00 96.4 76 20 91/56 (68) 98 96.4 11/15/17 04:00 86 11/15/17 04:00 Nasal Cannula 3.0 11/15/17 00:00 96.0 89 20 124/72 (89) 98 96.0 11/15/17 00:00 Nasal Cannula 3.0 11/14/17 23:37 96 11/14/17 20:00 Nasal Cannula 3.0 11/14/17 20:00 90 11/14/17 20:00 96.9 87 22 121/77 (92) 98 96.9 11/14/17 16:00 Nasal Cannula 3.0 11/14/17 16:00 97.1 83 24 102/54 (70) 98 97.1 11/14/17 16:00 82 11/14/17 12:00 88 11/14/17 12:00 97.5 89 24 110/72 (85) 99 97.5 11/14/17 12:00 Nasal Cannula 3.0 11/14/17 08:00 97.0 82 24 104/56 (72) 98 97.0 11/14/17 08:00 77 11/14/17 08:00 Nasal Cannula 3.0 Intake and Output 11/14/17 11/15/17 19:00 07:00 Intake Total 1635.00 ml 1405 ml Output Total 1600 ml 1450 ml Balance 35.00 ml -45 ml Intake IV Total 1635.00 ml 1405 ml Output Urine Total 1600 ml 1450 ml # Bowel Movements 50 50 Laboratory Tests 11/15/17 04:18: White Blood Count 5.2, Red Blood Count 3.70L, Hemoglobin 10.7L, Hematocrit 32.3L , Mean Corpuscular Volume 87, Mean Corpuscular Hemoglobin 28.9, Mean Corpuscular Hemoglobin Concent 33.1, Red Cell Distribution Width 13.6, Platelet Count 138L, Mean Platelet Volume 9.1, Neutrophils (%) (Auto) 63.6, Lymphocytes ( %) (Auto) 26.4, Monocytes (%) (Auto) 6.6, Eosinophils (%) (Auto) 2.8, Basophils (%) (Auto) 0.6, Sodium Level 153H, Potassium Level 3.6, Chloride Level 121H, Carbon Dioxide Level 21, Anion Gap 11, Blood Urea Nitrogen 9, Creatinine 1.5H, Estimat Glomerular Filtration Rate 36.2, Glucose Level 91, Calcium Level 8.6 Height (Feet): 5 Height (Inches): 2.00 Weight (Pounds): 130 General Appearance: no apparent distress EENT: normal ENT inspection Neck: supple Cardiovascular: normal rate Respiratory/Chest: decreased breath sounds Abdomen: normal bowel sounds, non tender, soft Extremities: non-tender Laith Chan MD Nov 15, 2017 07:13
[2017-11-15 08:00] VITALS: BP 108/58
[2017-11-15] MEDS: levETIRAcetam 500mg/NS100ml 100 ML IVPB SCH ×2 (08:28→20:43)
[2017-11-15] MEDS: Pantoprazole Inj IVP SCH (08:28)
[2017-11-15] MEDS: Midodrine 10mg tab ORAL SCH ×3 (08:29→17:35)
[2017-11-15] MEDS: Heparin 5000 units/ml inj SUBQ SCH ×2 (08:29→20:49)
[2017-11-15] MEDS: Docusate 100mg cap ORAL SCH ×3 (08:29→17:35)
--- NOTE | 2017-11-15 09:10 | Urology Progress Note ---
Assessment/Plan Assessment/Plan 1. History of hydronephrosis that is chronic. 2. Renal insufficiency, acute on chronic, slowly improving. 3. Hematuria. 4. Pyuria. 5. Proteinuria. 6. Urinary retention with chronic suprapubic tube. 7. Neurogenic bladder. sp tube indwelling hand irrigated, patent abx as ordered monitor renal fxn need old recs Subjective Allergies: Coded Allergies: CEFEPIME (Unverified Allergy, Unknown, 11/09/17) Subjective all noted Objective Last 24 Hour Vital Signs Date Time Temp Pulse Resp B/P (MAP) Pulse Ox O2 Delivery O2 Flow Rate FiO2 11/15/17 08:00 Nasal Cannula 3.0 11/15/17 08:00 96.3 91 24 108/58 (75) 97 96.3 11/15/17 04:00 96.4 76 20 91/56 (68) 98 96.4 11/15/17 04:00 86 11/15/17 04:00 Nasal Cannula 3.0 11/15/17 00:00 96.0 89 20 124/72 (89) 98 96.0 11/15/17 00:00 Nasal Cannula 3.0 11/14/17 23:37 96 11/14/17 20:00 Nasal Cannula 3.0 11/14/17 20:00 90 11/14/17 20:00 96.9 87 22 121/77 (92) 98 96.9 11/14/17 16:00 Nasal Cannula 3.0 11/14/17 16:00 97.1 83 24 102/54 (70) 98 97.1 11/14/17 16:00 82 11/14/17 12:00 88 11/14/17 12:00 97.5 89 24 110/72 (85) 99 97.5 11/14/17 12:00 Nasal Cannula 3.0 Intake and Output 11/14/17 11/15/17 19:00 07:00 Intake Total 1635.00 ml 1530 ml Output Total 1600 ml 1450 ml Balance 35.00 ml 80 ml Intake IV Total 1635.00 ml 1530 ml Output Urine Total 1600 ml 1450 ml # Bowel Movements 50 50 Microbiology Date/Time Source Procedure Growth Status 11/09/17 13:20 Blood Blood Culture - Final Staphylococcus Simulans Complete 11/09/17 20:25 Nasal Nares MRSA Culture - Final Staphylococcus Aureus - Mrsa Complete 11/09/17 13:30 Urine,Clean Catch Urine Culture - Final Providencia Stuartii Staphylococcus Aureus - Mrsa Complete 11/10/17 20:25 Rectum - Final NO CARBAPENEM-RESISTANT ENTEROBACTERI... Complete Current Medications Medications (Trade) Dose Ordered Sig/Tay Route PRN Reason Start Time Stop Time Status Last Admin Dose Admin Acetaminophen (Tylenol) 650 mg Q6H PRN ORAL Mild Pain/Temp > 101 11/09/17 21:30 12/09/17 21:29 Dextrose 1,000 ml @ 125 mls/hr Q8H IV 11/14/17 08:15 12/14/17 08:14 11/15/17 08:28 Docusate Sodium (Colace) 100 mg TID ORAL 11/10/17 13:00 12/10/17 08:59 Ertapenem 0.5 gm/ Sodium Chloride 55 ml @ 110 mls/hr Q24H IVPB 11/11/17 20:00 11/16/17 19:59 11/14/17 21:03 Heparin Sodium (Porcine) (Heparin 5000 units/ml) 5,000 units EVERY 12 HOURS SUBQ 11/10/17 09:00 12/10/17 08:59 11/15/17 08:29 Levetiracetam 100 ml @ 400 mls/hr Q12HR IVPB 11/09/17 22:30 12/09/17 22:29 11/15/17 08:28 Midodrine (Pro-Amatine) 10 mg THREE TIMES A DAY ORAL 11/12/17 09:00 12/10/17 08:59 Ondansetron HCl (Zofran) 4 mg Q4H PRN IVP Nausea & Vomiting 11/09/17 21:30 12/09/17 21:29 Pantoprazole (Protonix) 40 mg DAILY IVP 11/10/17 09:00 12/10/17 08:59 11/15/17 08:28 Sennosides (Senokot) 1 tab DAILY PRN ORAL Constipation 11/09/17 21:30 12/09/17 21:29 Vancomycin HCl (Vanco rx to dose) 1 ea DAILY PRN MISC Per rx protocol 11/12/17 13:30 12/12/17 13:29 Vancomycin HCl 500 mg/Dextrose 110 ml @ 110 mls/hr Q24H IVPB 11/13/17 14:00 11/18/17 13:59 11/14/17 13:58 Laboratory Tests 11/15/17 04:18: White Blood Count 5.2, Red Blood Count 3.70L, Hemoglobin 10.7L, Hematocrit 32.3L , Mean Corpuscular Volume 87, Mean Corpuscular Hemoglobin 28.9, Mean Corpuscular Hemoglobin Concent 33.1, Red Cell Distribution Width 13.6, Platelet Count 138L, Mean Platelet Volume 9.1, Neutrophils (%) (Auto) 63.6, Lymphocytes ( %) (Auto) 26.4, Monocytes (%) (Auto) 6.6, Eosinophils (%) (Auto) 2.8, Basophils (%) (Auto) 0.6, Sodium Level 153H, Potassium Level 3.6, Chloride Level 121H, Carbon Dioxide Level 21, Anion Gap 11, Blood Urea Nitrogen 9, Creatinine 1.5H, Estimat Glomerular Filtration Rate 36.2, Glucose Level 91, Calcium Level 8.6 Height (Feet): 5 Height (Inches): 2.00 Weight (Pounds): 130 Objective exam stable WILBER GALINDO Nov 15, 2017 09:10
[2017-11-15 12:00] VITALS: BP 97/69
--- NOTE | 2017-11-15 12:14 | Nephrology Progress Note ---
Assessment/Plan Problem List: (1) Acute renal failure (ARF) (2) Dehydration with hypernatremia (3) Severe sepsis (4) Shock (5) Dehydration, severe (6) Hypotension Assessment Acute kidney injury, likely on chronic kidney disease. Cr lowering Hypernatremia, with an initial sodium of 177. Na lowering Profound dehydration. improving Shock, likely septic. Hypercalcemia. on presentation Urinary tract infection. Has supraPubic cath History of traumatic brain injury, dementia, and seizure disorder. History of staghorn renal calculi with multiple UTIs, status post Plan D5W Albumin bolus PRN KCL, Mag , Phos as needed Antibiotics Anemia yarbrough Monitor renal parameters- Avoid Nephrotoxics midodrine , 10 TID, not taking PO Due PEG- Consent taken Subjective ROS Limited/Unobtainable: Yes Objective Objective Last 24 Hour Vital Signs Date Time Temp Pulse Resp B/P (MAP) Pulse Ox O2 Delivery O2 Flow Rate FiO2 11/15/17 08:00 Nasal Cannula 3.0 11/15/17 08:00 96.3 91 24 108/58 (75) 97 96.3 11/15/17 08:00 84 11/15/17 04:00 96.4 76 20 91/56 (68) 98 96.4 11/15/17 04:00 86 11/15/17 04:00 Nasal Cannula 3.0 11/15/17 00:00 96.0 89 20 124/72 (89) 98 96.0 11/15/17 00:00 Nasal Cannula 3.0 11/14/17 23:37 96 11/14/17 20:00 Nasal Cannula 3.0 11/14/17 20:00 90 11/14/17 20:00 96.9 87 22 121/77 (92) 98 96.9 11/14/17 16:00 Nasal Cannula 3.0 11/14/17 16:00 97.1 83 24 102/54 (70) 98 97.1 11/14/17 16:00 82 Intake and Output 11/14/17 11/15/17 19:00 07:00 Intake Total 1635.00 ml 1530 ml Output Total 1600 ml 1450 ml Balance 35.00 ml 80 ml Intake IV Total 1635.00 ml 1530 ml Output Urine Total 1600 ml 1450 ml # Bowel Movements 50 50 Laboratory Tests 11/15/17 04:18: White Blood Count 5.2, Red Blood Count 3.70L, Hemoglobin 10.7L, Hematocrit 32.3L , Mean Corpuscular Volume 87, Mean Corpuscular Hemoglobin 28.9, Mean Corpuscular Hemoglobin Concent 33.1, Red Cell Distribution Width 13.6, Platelet Count 138L, Mean Platelet Volume 9.1, Neutrophils (%) (Auto) 63.6, Lymphocytes ( %) (Auto) 26.4, Monocytes (%) (Auto) 6.6, Eosinophils (%) (Auto) 2.8, Basophils (%) (Auto) 0.6, Sodium Level 153H, Potassium Level 3.6, Chloride Level 121H, Carbon Dioxide Level 21, Anion Gap 11, Blood Urea Nitrogen 9, Creatinine 1.5H, Estimat Glomerular Filtration Rate 36.2, Glucose Level 91, Calcium Level 8.6 Height (Feet): 5 Height (Inches): 2.00 Weight (Pounds): 130 General Appearance: no apparent distress Objective no change Parrish Luo MD Nov 15, 2017 12:14
--- NOTE | 2017-11-15 12:19 | Pulmonology Progress Note ---
Assessment/Plan Assessment/Plan ASSESSMENT: The patient is a 52-year-old residential resident with history of dementia, traumatic brain injury, recurrent staghorn calculi, recurrent urinary tract infection, suprapubic catheter, prior trach, seizure disorder, nonverbal at baseline, presenting initially for desaturation, but now is stable respiratory dynamics, but concerned for sepsis and profound dehydration with acute kidney injury, anion gap, metabolic acidosis, lactic acidosis, and hemoconcentration all likely secondary to a source. PROBLEM LIST: 1. SIRS/sepsis. 2. Shock, likely septic. 3. Profound dehydration. 4. Hypernatremia, with an initial sodium of 177. 5. Anion gap metabolic acidosis, lactic acidosis. 6. Acute kidney injury, likely on chronic kidney disease. 7. Hypercalcemia. 8. Urinary tract infection. 9. History of traumatic brain injury, dementia, and seizure disorder. 10. History of prior tracheostomy, status post takedown. 11. History of staghorn renal calculi with multiple UTIs, status post suprapubic catheter placement. 12. [facility] resident. 13. Nonverbal at baseline. 14. Bed-bound. 15. Full Code. TREATMENT PLAN: 1. IVF per renal, replete electrolytes as able 2. PEG friday 3. Continue ERTA and VANCO per ID, F/U Cx's 4. F/U recs 5. Heparin subcutaneous for DVT prophylaxis. 6. PRN O2, PRN HHN's 7. The patient is a Full Code, POLST reviewed by myself, we will need to discuss goals of care further. Subjective Allergies: Coded Allergies: CEFEPIME (Unverified Allergy, Unknown, 11/09/17) Subjective AFVSS, O2 needs stable Consented for PEG More alert but MS waxes and wane No cough, no SOB, no F/C, no distress Objective Last 24 Hour Vital Signs Date Time Temp Pulse Resp B/P (MAP) Pulse Ox O2 Delivery O2 Flow Rate FiO2 11/15/17 08:00 Nasal Cannula 3.0 11/15/17 08:00 96.3 91 24 108/58 (75) 97 96.3 11/15/17 08:00 84 11/15/17 04:00 96.4 76 20 91/56 (68) 98 96.4 11/15/17 04:00 86 11/15/17 04:00 Nasal Cannula 3.0 11/15/17 00:00 96.0 89 20 124/72 (89) 98 96.0 11/15/17 00:00 Nasal Cannula 3.0 11/14/17 23:37 96 11/14/17 20:00 Nasal Cannula 3.0 11/14/17 20:00 90 11/14/17 20:00 96.9 87 22 121/77 (92) 98 96.9 11/14/17 16:00 Nasal Cannula 3.0 11/14/17 16:00 97.1 83 24 102/54 (70) 98 97.1 11/14/17 16:00 82 Intake and Output 11/14/17 11/15/17 19:00 07:00 Intake Total 1635.00 ml 1530 ml Output Total 1600 ml 1450 ml Balance 35.00 ml 80 ml Intake IV Total 1635.00 ml 1530 ml Output Urine Total 1600 ml 1450 ml # Bowel Movements 50 50 General Appearance: cachetic, other - non verbal HEENT: normocephalic, atraumatic, anicteric, mucous membranes moist Respiratory/Chest: rhonchi Cardiovascular: normal peripheral pulses, normal rate, regular rhythm Abdomen: normal bowel sounds, soft, non tender, no organomegaly, non distended , no mass, other Extremities: no cyanosis, no clubbing, no edema, other - contracted Microbiology Date/Time Source Procedure Growth Status 11/13/17 15:10 Blood Blood Culture - Preliminary NO GROWTH AFTER 24 HOURS Resulted 11/13/17 14:55 Blood Blood Culture - Preliminary NO GROWTH AFTER 24 HOURS Resulted Laboratory Tests 11/15/17 04:18: White Blood Count 5.2, Red Blood Count 3.70L, Hemoglobin 10.7L, Hematocrit 32.3L , Mean Corpuscular Volume 87, Mean Corpuscular Hemoglobin 28.9, Mean Corpuscular Hemoglobin Concent 33.1, Red Cell Distribution Width 13.6, Platelet Count 138L, Mean Platelet Volume 9.1, Neutrophils (%) (Auto) 63.6, Lymphocytes ( %) (Auto) 26.4, Monocytes (%) (Auto) 6.6, Eosinophils (%) (Auto) 2.8, Basophils (%) (Auto) 0.6, Sodium Level 153H, Potassium Level 3.6, Chloride Level 121H, Carbon Dioxide Level 21, Anion Gap 11, Blood Urea Nitrogen 9, Creatinine 1.5H, Estimat Glomerular Filtration Rate 36.2, Glucose Level 91, Calcium Level 8.6 Current Medications Medications (Trade) Dose Ordered Sig/Tay Route PRN Reason Start Time Stop Time Status Last Admin Dose Admin Acetaminophen (Tylenol) 650 mg Q6H PRN ORAL Mild Pain/Temp > 101 11/09/17 21:30 12/09/17 21:29 Dextrose 1,000 ml @ 75 mls/hr [id number] IV 11/15/17 12:15 12/15/17 12:14 Docusate Sodium (Colace) 100 mg TID ORAL 11/10/17 13:00 12/10/17 08:59 Ertapenem 1 gm/ Sodium Chloride 55 ml @ 110 mls/hr Q24H IVPB 11/15/17 18:00 11/20/17 17:59 Heparin Sodium (Porcine) (Heparin 5000 units/ml) 5,000 units EVERY 12 HOURS SUBQ 11/10/17 09:00 12/10/17 08:59 11/15/17 08:29 Levetiracetam 100 ml @ 400 mls/hr Q12HR IVPB 11/09/17 22:30 12/09/17 22:29 11/15/17 08:28 Midodrine (Pro-Amatine) 10 mg THREE TIMES A DAY ORAL 11/12/17 09:00 12/10/17 08:59 Ondansetron HCl (Zofran) 4 mg Q4H PRN IVP Nausea & Vomiting 11/09/17 21:30 12/09/17 21:29 Pantoprazole (Protonix) 40 mg DAILY IVP 11/10/17 09:00 12/10/17 08:59 11/15/17 08:28 Sennosides (Senokot) 1 tab DAILY PRN ORAL Constipation 11/09/17 21:30 12/09/17 21:29 Vancomycin HCl (Vanco rx to dose) 1 ea DAILY PRN MISC Per rx protocol 11/12/17 13:30 12/12/17 13:29 Vancomycin HCl 500 mg/Dextrose 110 ml @ 110 mls/hr Q24H IVPB 11/13/17 14:00 11/18/17 13:59 11/14/17 13:58 Jose Montalvo MD Nov 15, 2017 12:19
--- NOTE | 2017-11-15 13:42 | Infectious Diseases Prog Note ---
Assessment/Plan Problems: (1) Acute pyelonephritis Assessment & Plan: with MDR Providencia stuartii, and MRSA , suspect due to right ureter stent obstruction, continue vancomycin to cover for MRSA , and ertapenem for MDR Providencia stuartii for two weeks total , urology eval is in progress , may need stent removal . (2) Hydronephrosis of right kidney Assessment & Plan: suspect ureter stent malfunction , urology eval is in progress, may need stent removal (3) Severe sepsis Assessment & Plan: with staph simulans , most likely contamination , grew from one set only. already on vancomycin for two weeks for MRSA pyelonephritis, repeated blood culture is pending (4) Renal failure Assessment & Plan: continue hydration , monitor renal function, avoid nephrotoxics (5) Hypernatremia Assessment & Plan: due to free water loss , continue hydration with close monitor of serum sodium (6) Left shoulder pain Assessment & Plan: due to chronic rotator cuff syndrom, as evident by X ray , folllow up with ortho (7) Colonization with VRE (vancomycin-resistant enterococcus) Assessment & Plan: keep in contact isolation (8) Hypotension Assessment & Plan: doubt due to sepsis , cortisol level looks ok . repeated blood culture was ordered already Subjective ROS Limited/Unobtainable: Yes Allergies: Coded Allergies: CEFEPIME (Unverified Allergy, Unknown, 11/09/17) Subjective she was lying in bed, sleepy, not well responsive to verbal commands , a febrile Objective Vital Signs Last 24 Hour Vital Signs Date Time Temp Pulse Resp B/P (MAP) Pulse Ox O2 Delivery O2 Flow Rate FiO2 11/15/17 12:00 Nasal Cannula 3.0 11/15/17 12:00 96.4 102 24 97/69 (78) 98 96.4 11/15/17 08:00 Nasal Cannula 3.0 11/15/17 08:00 96.3 91 24 108/58 (75) 97 96.3 11/15/17 08:00 84 11/15/17 04:00 96.4 76 20 91/56 (68) 98 96.4 11/15/17 04:00 86 11/15/17 04:00 Nasal Cannula 3.0 11/15/17 00:00 96.0 89 20 124/72 (89) 98 96.0 11/15/17 00:00 Nasal Cannula 3.0 11/14/17 23:37 96 11/14/17 20:00 Nasal Cannula 3.0 11/14/17 20:00 90 11/14/17 20:00 96.9 87 22 121/77 (92) 98 96.9 11/14/17 16:00 Nasal Cannula 3.0 11/14/17 16:00 97.1 83 24 102/54 (70) 98 97.1 11/14/17 16:00 82 Height (Feet): 5 Height (Inches): 2.00 Weight (Pounds): 130 General Appearance: WD/WN, no acute distress HEENT: normocephalic, atraumatic, anicteric, mucous membranes moist, PERRL Respiratory/Chest: chest wall non-tender, lungs clear, normal breath sounds, no respiratory distress, no accessory muscle use Cardiovascular: normal peripheral pulses, normal rate, regular rhythm, no gallop/murmur, no JVD Abdomen: normal bowel sounds, soft, non tender, no organomegaly, non distended , no mass, no scars Genitourinary: normal external genitalia Extremities: no cyanosis, no clubbing Skin: no rash, no lesions Neurologic/Psychiatric: unresponsiveness Lymphatic: no neck adenopathy, no groin adenopathy Musculoskeletal: normal muscle bulk, no effusion Microbiology Date/Time Source Procedure Growth Status 11/13/17 15:10 Blood Blood Culture - Preliminary NO GROWTH AFTER 24 HOURS Resulted 11/13/17 14:55 Blood Blood Culture - Preliminary NO GROWTH AFTER 24 HOURS Resulted Laboratory Tests Test 11/15/17 04:18 White Blood Count 5.2 K/UL (4.8-10.8) Red Blood Count 3.70 M/UL (4.20-5.40) L Hemoglobin 10.7 G/DL (12.0-16.0) L Hematocrit 32.3 % (37.0-47.0) L Mean Corpuscular Volume 87 FL (80-99) Mean Corpuscular Hemoglobin 28.9 PG (27.0-31.0) Mean Corpuscular Hemoglobin Concent 33.1 G/DL (32.0-36.0) Red Cell Distribution Width 13.6 % (11.6-14.8) Platelet Count 138 K/UL (150-450) L Mean Platelet Volume 9.1 FL (6.5-10.1) Neutrophils (%) (Auto) 63.6 % (45.0-75.0) Lymphocytes (%) (Auto) 26.4 % (20.0-45.0) Monocytes (%) (Auto) 6.6 % (1.0-10.0) Eosinophils (%) (Auto) 2.8 % (0.0-3.0) Basophils (%) (Auto) 0.6 % (0.0-2.0) Sodium Level 153 MMOL/L (136-145) H Potassium Level 3.6 MMOL/L (3.5-5.1) Chloride Level 121 MMOL/L (98-107) H Carbon Dioxide Level 21 MMOL/L (21-32) Anion Gap 11 mmol/L (5-15) Blood Urea Nitrogen 9 mg/dL (7-18) Creatinine 1.5 MG/DL (0.55-1.30) H Estimat Glomerular Filtration Rate 36.2 mL/min (>60) Glucose Level 91 MG/DL (74-106) Calcium Level 8.6 MG/DL (8.5-10.1) Current Medications Medications (Trade) Dose Ordered Sig/Tay Route PRN Reason Start Time Stop Time Status Last Admin Dose Admin Acetaminophen (Tylenol) 650 mg Q6H PRN ORAL Mild Pain/Temp > 101 11/09/17 21:30 12/09/17 21:29 Dextrose 1,000 ml @ 75 mls/hr [id number] IV 11/15/17 12:15 12/15/17 12:14 11/15/17 12:19 Docusate Sodium (Colace) 100 mg TID ORAL 11/10/17 13:00 12/10/17 08:59 Ertapenem 1 gm/ Sodium Chloride 55 ml @ 110 mls/hr Q24H IVPB 11/15/17 18:00 11/20/17 17:59 Heparin Sodium (Porcine) (Heparin 5000 units/ml) 5,000 units EVERY 12 HOURS SUBQ 11/10/17 09:00 12/10/17 08:59 11/15/17 08:29 Levetiracetam 100 ml @ 400 mls/hr Q12HR IVPB 11/09/17 22:30 12/09/17 22:29 11/15/17 08:28 Midodrine (Pro-Amatine) 10 mg THREE TIMES A DAY ORAL 11/12/17 09:00 12/10/17 08:59 Ondansetron HCl (Zofran) 4 mg Q4H PRN IVP Nausea & Vomiting 11/09/17 21:30 12/09/17 21:29 Pantoprazole (Protonix) 40 mg DAILY IVP 11/10/17 09:00 12/10/17 08:59 11/15/17 08:28 Sennosides (Senokot) 1 tab DAILY PRN ORAL Constipation 11/09/17 21:30 12/09/17 21:29 Vancomycin HCl (Vanco rx to dose) 1 ea DAILY PRN MISC Per rx protocol 11/12/17 13:30 12/12/17 13:29 Vancomycin HCl 500 mg/Dextrose 110 ml @ 110 mls/hr Q24H IVPB 11/13/17 14:00 11/18/17 13:59 11/14/17 13:58 Kortney Quiñones M.D. Nov 15, 2017 13:42
[2017-11-15] MEDS: Vancomycin 500mg/D5W 110ml IVPB SCH ×2 (14:06)
[2017-11-15 16:00] VITALS: BP 106/63
[2017-11-15] MEDS ORDERED: NS 275ml ONE (16:36)
[2017-11-15] MEDS ORDERED: Tubing IV Secondary IV ONE (16:36)
[2017-11-15] MEDS ORDERED: NS 500ML ONE (16:36)
[2017-11-15] MEDS: Ertapenem 1 GM in NS 55 ML IVPB SCH (17:34)
[2017-11-15 20:00] VITALS: BP 129/76
[2017-11-16] VITALS: BP 119/72
[2017-11-16 04:00] VITALS: BP 124/63
--- NOTE | 2017-11-16 07:34 | General Progress Note ---
Assessment/Plan Problem List: (1) Hypotension ICD Codes: I95.9 - Hypotension, unspecified SNOMED: 99524066 (2) Encounter for PEG (percutaneous endoscopic gastrostomy) ICD Codes: Z43.1 - Encounter for attention to gastrostomy SNOMED: 557595309, 923994255 (3) Dehydration ICD Codes: E86.0 - Dehydration SNOMED: 85719488 (4) Colonization with VRE (vancomycin-resistant enterococcus) ICD Codes: Z22.338 - Carrier of other streptococcus SNOMED: 873303590 Assessment/Plan family agreed to PEG placement plan for Friday Subjective ROS Limited/Unobtainable: No Allergies: Coded Allergies: CEFEPIME (Unverified Allergy, Unknown, 11/09/17) Objective Last 24 Hour Vital Signs Date Time Temp Pulse Resp B/P (MAP) Pulse Ox O2 Delivery O2 Flow Rate FiO2 11/16/17 04:00 86 11/16/17 04:00 97.8 86 22 124/63 (83) 98 97.8 11/16/17 04:00 Nasal Cannula 3.0 11/16/17 00:00 Nasal Cannula 3.0 11/16/17 00:00 98.1 89 24 119/72 (88) 98 98.1 11/16/17 00:00 99 11/15/17 20:00 99 11/15/17 20:00 98.6 92 24 129/76 (93) 97 98.6 11/15/17 20:00 Nasal Cannula 3.0 11/15/17 16:00 Nasal Cannula 3.0 11/15/17 16:00 98.9 97 23 106/63 (77) 98 98.9 11/15/17 16:00 101 11/15/17 12:00 Nasal Cannula 3.0 11/15/17 12:00 92 11/15/17 12:00 96.4 102 24 97/69 (78) 98 96.4 11/15/17 08:00 Nasal Cannula 3.0 11/15/17 08:00 96.3 91 24 108/58 (75) 97 96.3 11/15/17 08:00 84 Intake and Output 11/15/17 11/16/17 19:00 07:00 Intake Total 735 ml 825 ml Output Total 1600 ml 1400 ml Balance -865 ml -575 ml Intake IV Total 735 ml 825 ml Output Urine Total 1600 ml 1400 ml # Bowel Movements 20 80 Height (Feet): 5 Height (Inches): 2.00 Weight (Pounds): 130 General Appearance: no apparent distress EENT: normal ENT inspection Neck: supple Cardiovascular: normal rate Respiratory/Chest: decreased breath sounds Abdomen: normal bowel sounds, non tender, soft Extremities: non-tender Laith Chan MD Nov 16, 2017 07:34
[2017-11-16 08:29] VITALS: BP 99/77
[2017-11-16] MEDS: Docusate 100mg cap ORAL SCH (08:40)
[2017-11-16] MEDS: Midodrine 10mg tab ORAL SCH (08:41)
[2017-11-16] MEDS: Pantoprazole Inj IVP SCH (08:53)
[2017-11-16] MEDS: levETIRAcetam 500mg/NS100ml 100 ML IVPB SCH ×2 (08:53→21:00)
[2017-11-16] MEDS: Heparin 5000 units/ml inj SUBQ SCH ×2 (08:54→21:00)
--- NOTE | 2017-11-16 09:23 | Urology Progress Note ---
Assessment/Plan Assessment/Plan 1. History of hydronephrosis that is chronic. 2. Renal insufficiency, acute on chronic, slowly improving. 3. Hematuria. 4. Pyuria. 5. Proteinuria. 6. Urinary retention with chronic suprapubic tube. 7. Neurogenic bladder. sp tube indwelling hand irrigated, patent abx as ordered monitor renal fxn need old recs Subjective Allergies: Coded Allergies: CEFEPIME (Unverified Allergy, Unknown, 11/09/17) Subjective all noted Objective Last 24 Hour Vital Signs Date Time Temp Pulse Resp B/P (MAP) Pulse Ox O2 Delivery O2 Flow Rate FiO2 11/16/17 08:29 96.9 92 24 99/77 (84) 96 96.9 11/16/17 04:00 86 11/16/17 04:00 97.8 86 22 124/63 (83) 98 97.8 11/16/17 04:00 Nasal Cannula 3.0 11/16/17 00:00 Nasal Cannula 3.0 11/16/17 00:00 98.1 89 24 119/72 (88) 98 98.1 11/16/17 00:00 99 11/15/17 20:00 99 11/15/17 20:00 98.6 92 24 129/76 (93) 97 98.6 11/15/17 20:00 Nasal Cannula 3.0 11/15/17 16:00 Nasal Cannula 3.0 11/15/17 16:00 98.9 97 23 106/63 (77) 98 98.9 11/15/17 16:00 101 11/15/17 12:00 Nasal Cannula 3.0 11/15/17 12:00 92 11/15/17 12:00 96.4 102 24 97/69 (78) 98 96.4 Intake and Output 11/15/17 11/16/17 19:00 07:00 Intake Total 735 ml 825 ml Output Total 1600 ml 1400 ml Balance -865 ml -575 ml Intake IV Total 735 ml 825 ml Output Urine Total 1600 ml 1400 ml # Bowel Movements 20 80 Microbiology Date/Time Source Procedure Growth Status 11/13/17 15:10 Blood Blood Culture - Preliminary NO GROWTH AFTER 48 HOURS Resulted 11/09/17 20:25 Nasal Nares MRSA Culture - Final Staphylococcus Aureus - Mrsa Complete 11/09/17 13:30 Urine,Clean Catch Urine Culture - Final Providencia Stuartii Staphylococcus Aureus - Mrsa Complete 11/10/17 20:25 Rectum - Final NO CARBAPENEM-RESISTANT ENTEROBACTERI... Complete Current Medications Medications (Trade) Dose Ordered Sig/Tay Route PRN Reason Start Time Stop Time Status Last Admin Dose Admin Acetaminophen (Tylenol) 650 mg Q6H PRN ORAL Mild Pain/Temp > 101 11/09/17 21:30 12/09/17 21:29 Dextrose 1,000 ml @ 75 mls/hr [id number] IV 11/15/17 12:15 12/15/17 12:14 11/16/17 00:16 Ertapenem 1 gm/ Sodium Chloride 55 ml @ 110 mls/hr Q24H IVPB 11/15/17 18:00 11/20/17 17:59 11/15/17 17:34 Heparin Sodium (Porcine) (Heparin 5000 units/ml) 5,000 units EVERY 12 HOURS SUBQ 11/10/17 09:00 12/10/17 08:59 11/16/17 08:54 Levetiracetam 100 ml @ 400 mls/hr Q12HR IVPB 11/09/17 22:30 12/09/17 22:29 11/16/17 08:53 Midodrine (Pro-Amatine) 10 mg THREE TIMES A DAY ORAL 11/12/17 09:00 12/10/17 08:59 Ondansetron HCl (Zofran) 4 mg Q4H PRN IVP Nausea & Vomiting 11/09/17 21:30 12/09/17 21:29 Pantoprazole (Protonix) 40 mg DAILY IVP 11/10/17 09:00 12/10/17 08:59 11/16/17 08:53 Sennosides (Senokot) 1 tab DAILY PRN ORAL Constipation 11/09/17 21:30 12/09/17 21:29 Vancomycin HCl (Vanco rx to dose) 1 ea DAILY PRN MISC Per rx protocol 11/12/17 13:30 12/12/17 13:29 Vancomycin HCl 500 mg/Dextrose 110 ml @ 110 mls/hr Q24H IVPB 11/13/17 14:00 11/18/17 13:59 11/15/17 14:06 Height (Feet): 5 Height (Inches): 2.00 Weight (Pounds): 130 Objective exam stable WILBER GALINDO Nov 16, 2017 09:23
--- NOTE | 2017-11-16 10:34 | Nephrology Progress Note ---
Assessment/Plan Problem List: (1) Acute renal failure (ARF) (2) Dehydration with hypernatremia (3) Severe sepsis (4) Shock (5) Dehydration, severe (6) Hypotension Assessment Acute kidney injury, likely on chronic kidney disease. Cr lowering Hypernatremia, with an initial sodium of 177. Na lowering Profound dehydration. improving Shock, likely septic. Hypercalcemia. on presentation Urinary tract infection. Has supraPubic cath History of traumatic brain injury, dementia, and seizure disorder. History of staghorn renal calculi with multiple UTIs, status post Plan Due PEG D5W Albumin bolus PRN KCL, Mag , Phos as needed Antibiotics Anemia yarbrough Monitor renal parameters- Avoid Nephrotoxics DC midodrine , 10 TID, as not taking PO Due PEG- Consent taken Subjective ROS Limited/Unobtainable: No Objective Objective Last 24 Hour Vital Signs Date Time Temp Pulse Resp B/P (MAP) Pulse Ox O2 Delivery O2 Flow Rate FiO2 11/16/17 09:30 88 11/16/17 08:29 96.9 92 24 99/77 (84) 96 96.9 11/16/17 08:00 Room Air 11/16/17 04:00 86 11/16/17 04:00 97.8 86 22 124/63 (83) 98 97.8 11/16/17 04:00 Nasal Cannula 3.0 11/16/17 00:00 Nasal Cannula 3.0 11/16/17 00:00 98.1 89 24 119/72 (88) 98 98.1 11/16/17 00:00 99 11/15/17 20:00 99 11/15/17 20:00 98.6 92 24 129/76 (93) 97 98.6 11/15/17 20:00 Nasal Cannula 3.0 11/15/17 16:00 Nasal Cannula 3.0 11/15/17 16:00 98.9 97 23 106/63 (77) 98 98.9 11/15/17 16:00 101 11/15/17 12:00 Nasal Cannula 3.0 11/15/17 12:00 92 11/15/17 12:00 96.4 102 24 97/69 (78) 98 96.4 Intake and Output 11/15/17 11/16/17 19:00 07:00 Intake Total 735 ml 825 ml Output Total 1600 ml 1400 ml Balance -865 ml -575 ml Intake IV Total 735 ml 825 ml Output Urine Total 1600 ml 1400 ml # Bowel Movements 20 80 Height (Feet): 5 Height (Inches): 2.00 Weight (Pounds): 130 General Appearance: no apparent distress Cardiovascular: tachycardia Respiratory/Chest: decreased breath sounds Abdomen: soft Objective no change Parrish Luo MD Nov 16, 2017 10:34
--- NOTE | 2017-11-16 12:42 | Pulmonology Progress Note ---
Assessment/Plan Assessment/Plan ASSESSMENT: The patient is a 52-year-old residential resident with history of dementia, traumatic brain injury, recurrent staghorn calculi, recurrent urinary tract infection, suprapubic catheter, prior trach, seizure disorder, nonverbal at baseline, presenting initially for desaturation, but now is stable respiratory dynamics, but concerned for sepsis and profound dehydration with acute kidney injury, anion gap, metabolic acidosis, lactic acidosis, and hemoconcentration all likely secondary to a source. PROBLEM LIST: 1. SIRS/sepsis. 2. Shock, likely septic. 3. Profound dehydration. 4. Hypernatremia, with an initial sodium of 177. 5. Anion gap metabolic acidosis, lactic acidosis. 6. Acute kidney injury, likely on chronic kidney disease. 7. Hypercalcemia. 8. Urinary tract infection. 9. History of traumatic brain injury, dementia, and seizure disorder. 10. History of prior tracheostomy, status post takedown. 11. History of staghorn renal calculi with multiple UTIs, status post suprapubic catheter placement. 12. group home resident. 13. Nonverbal at baseline. 14. Bed-bound. 15. Full Code. TREATMENT PLAN: 1. IVF per renal, replete electrolytes as able 2. PEG tomorrow 3. Continue ERTA and VANCO per ID, F/U Cx's 4. F/U recs 5. Heparin subcutaneous for DVT prophylaxis. 6. PRN O2, PRN HHN's 7. The patient is a Full Code, POLST reviewed by myself, we will need to discuss goals of care further. Subjective Allergies: Coded Allergies: CEFEPIME (Unverified Allergy, Unknown, 11/09/17) Subjective AFVSS, O2 needs stable MS waxes and wane No cough, no SOB, no F/C, no distress Objective Last 24 Hour Vital Signs Date Time Temp Pulse Resp B/P (MAP) Pulse Ox O2 Delivery O2 Flow Rate FiO2 11/16/17 12:11 Room Air 11/16/17 09:30 88 11/16/17 08:29 96.9 92 24 99/77 (84) 96 96.9 11/16/17 08:00 Room Air 11/16/17 04:00 86 11/16/17 04:00 97.8 86 22 124/63 (83) 98 97.8 11/16/17 04:00 Nasal Cannula 3.0 11/16/17 00:00 Nasal Cannula 3.0 11/16/17 00:00 98.1 89 24 119/72 (88) 98 98.1 11/16/17 00:00 99 11/15/17 20:00 99 11/15/17 20:00 98.6 92 24 129/76 (93) 97 98.6 11/15/17 20:00 Nasal Cannula 3.0 11/15/17 16:00 Nasal Cannula 3.0 11/15/17 16:00 98.9 97 23 106/63 (77) 98 98.9 11/15/17 16:00 101 Intake and Output 11/15/17 11/16/17 19:00 07:00 Intake Total 735 ml 825 ml Output Total 1600 ml 1400 ml Balance -865 ml -575 ml Intake IV Total 735 ml 825 ml Output Urine Total 1600 ml 1400 ml # Bowel Movements 20 80 General Appearance: cachetic, other - non verbal HEENT: normocephalic, atraumatic, anicteric, mucous membranes moist Respiratory/Chest: chest wall non-tender, lungs clear, normal breath sounds, no respiratory distress Cardiovascular: normal peripheral pulses, normal rate, regular rhythm Abdomen: normal bowel sounds, soft, non tender, no organomegaly, non distended , no mass, other - SPC Extremities: no cyanosis, no clubbing, no edema, other - contractures Microbiology Date/Time Source Procedure Growth Status 11/13/17 15:10 Blood Blood Culture - Preliminary NO GROWTH AFTER 48 HOURS Resulted 11/13/17 14:55 Blood Blood Culture - Preliminary NO GROWTH AFTER 48 HOURS Resulted Current Medications Medications (Trade) Dose Ordered Sig/Tay Route PRN Reason Start Time Stop Time Status Last Admin Dose Admin Acetaminophen (Tylenol) 650 mg Q6H PRN ORAL Mild Pain/Temp > 101 11/09/17 21:30 12/09/17 21:29 Dextrose 1,000 ml @ 75 mls/hr [id number] IV 11/15/17 12:15 12/15/17 12:14 11/16/17 00:16 Ertapenem 1 gm/ Sodium Chloride 55 ml @ 110 mls/hr Q24H IVPB 11/15/17 18:00 11/20/17 17:59 11/15/17 17:34 Heparin Sodium (Porcine) (Heparin 5000 units/ml) 5,000 units EVERY 12 HOURS SUBQ 11/10/17 09:00 12/10/17 08:59 11/16/17 08:54 Levetiracetam 100 ml @ 400 mls/hr Q12HR IVPB 11/09/17 22:30 12/09/17 22:29 11/16/17 08:53 Ondansetron HCl (Zofran) 4 mg Q4H PRN IVP Nausea & Vomiting 11/09/17 21:30 12/09/17 21:29 Pantoprazole (Protonix) 40 mg DAILY IVP 11/10/17 09:00 12/10/17 08:59 11/16/17 08:53 Sennosides (Senokot) 1 tab DAILY PRN ORAL Constipation 11/09/17 21:30 12/09/17 21:29 Vancomycin HCl (Vanco rx to dose) 1 ea DAILY PRN MISC Per rx protocol 11/12/17 13:30 12/12/17 13:29 Vancomycin HCl 500 mg/Dextrose 110 ml @ 110 mls/hr Q24H IVPB 11/13/17 14:00 11/18/17 13:59 11/15/17 14:06 Jose Montalvo MD Nov 16, 2017 12:42
[2017-11-16 12:53] VITALS: BP 111/63
--- NOTE | 2017-11-16 14:15 | Infectious Diseases Prog Note ---
Assessment/Plan Problems: (1) Acute pyelonephritis Assessment & Plan: with MDR Providencia stuartii, and MRSA , suspect due to right ureter stent obstruction, continue vancomycin to cover for MRSA , and ertapenem for MDR Providencia stuartii for two weeks total , urology eval is in progress , may need stent removal . EOT 11/23/17 (2) Hydronephrosis of right kidney Assessment & Plan: suspect ureter stent malfunction , urology eval is in progress, may need stent removal (3) Severe sepsis Assessment & Plan: with staph simulans , most likely contamination , grew from one set only. already on vancomycin for two weeks for MRSA pyelonephritis, repeated blood culture is pending (4) Renal failure Assessment & Plan: continue hydration , monitor renal function, avoid nephrotoxics (5) Hypernatremia Assessment & Plan: due to free water loss , continue hydration with close monitor of serum sodium (6) Left shoulder pain Assessment & Plan: due to chronic rotator cuff syndrom, as evident by X ray , folllow up with ortho (7) Colonization with VRE (vancomycin-resistant enterococcus) Assessment & Plan: keep in contact isolation (8) Hypotension Assessment & Plan: doubt due to sepsis , cortisol level looks ok . repeated blood culture was ordered already Subjective ROS Limited/Unobtainable: Yes Allergies: Coded Allergies: CEFEPIME (Unverified Allergy, Unknown, 11/09/17) Subjective she was lying in bed, comfortable, more responsive to verbal commands , a febrile Objective Vital Signs Last 24 Hour Vital Signs Date Time Temp Pulse Resp B/P (MAP) Pulse Ox O2 Delivery O2 Flow Rate FiO2 11/16/17 12:53 95.5 95 23 111/63 (79) 98 95.5 11/16/17 12:11 Room Air 11/16/17 12:00 94 11/16/17 09:30 88 11/16/17 08:29 96.9 92 24 99/77 (84) 96 96.9 11/16/17 08:00 Room Air 11/16/17 04:00 86 11/16/17 04:00 97.8 86 22 124/63 (83) 98 97.8 11/16/17 04:00 Nasal Cannula 3.0 11/16/17 00:00 Nasal Cannula 3.0 11/16/17 00:00 98.1 89 24 119/72 (88) 98 98.1 11/16/17 00:00 99 11/15/17 20:00 99 11/15/17 20:00 98.6 92 24 129/76 (93) 97 98.6 11/15/17 20:00 Nasal Cannula 3.0 11/15/17 16:00 Nasal Cannula 3.0 11/15/17 16:00 98.9 97 23 106/63 (77) 98 98.9 11/15/17 16:00 101 Height (Feet): 5 Height (Inches): 2.00 Weight (Pounds): 130 General Appearance: WD/WN, no acute distress HEENT: normocephalic, atraumatic, anicteric, mucous membranes moist, PERRL Respiratory/Chest: chest wall non-tender, no respiratory distress, no accessory muscle use, decreased breath sounds, crackles/rales Cardiovascular: normal peripheral pulses, normal rate, regular rhythm, no gallop/murmur, no JVD Abdomen: normal bowel sounds, soft, non tender, no organomegaly, non distended , no mass, no scars Genitourinary: normal external genitalia Extremities: no cyanosis, no clubbing Skin: no rash, no lesions, no ulcers Neurologic/Psychiatric: alert, oriented x 3, responsive Lymphatic: no neck adenopathy, no groin adenopathy Musculoskeletal: normal muscle bulk, no effusion Microbiology Date/Time Source Procedure Growth Status 11/13/17 15:10 Blood Blood Culture - Preliminary NO GROWTH AFTER 48 HOURS Resulted 11/13/17 14:55 Blood Blood Culture - Preliminary NO GROWTH AFTER 48 HOURS Resulted Laboratory Tests Test 11/16/17 12:45 Vancomycin Level Trough 21.4 ug/mL (5.0-12.0) H Current Medications Medications (Trade) Dose Ordered Sig/Tay Route PRN Reason Start Time Stop Time Status Last Admin Dose Admin Acetaminophen (Tylenol) 650 mg Q6H PRN ORAL Mild Pain/Temp > 101 11/09/17 21:30 12/09/17 21:29 Dextrose 1,000 ml @ 75 mls/hr [id number] IV 11/15/17 12:15 12/15/17 12:14 11/16/17 00:16 Ertapenem 1 gm/ Sodium Chloride 55 ml @ 110 mls/hr Q24H IVPB 11/15/17 18:00 11/20/17 17:59 11/15/17 17:34 Heparin Sodium (Porcine) (Heparin 5000 units/ml) 5,000 units EVERY 12 HOURS SUBQ 11/10/17 09:00 12/10/17 08:59 11/16/17 08:54 Levetiracetam 100 ml @ 400 mls/hr Q12HR IVPB 11/09/17 22:30 12/09/17 22:29 11/16/17 08:53 Ondansetron HCl (Zofran) 4 mg Q4H PRN IVP Nausea & Vomiting 11/09/17 21:30 12/09/17 21:29 Pantoprazole (Protonix) 40 mg DAILY IVP 11/10/17 09:00 12/10/17 08:59 11/16/17 08:53 Sennosides (Senokot) 1 tab DAILY PRN ORAL Constipation 11/09/17 21:30 12/09/17 21:29 Vancomycin HCl (Vanco rx to dose) 1 ea DAILY PRN MISC Per rx protocol 11/12/17 13:30 12/12/17 13:29 Vancomycin HCl 500 mg/Dextrose 110 ml @ 110 mls/hr Q48H IVPB 11/17/17 13:00 11/22/17 12:59 Kortney Quiñones M.D. Nov 16, 2017 14:15
[2017-11-16 16:00] VITALS: BP 124/64
[2017-11-16] MEDS ORDERED: Tubing IV Secondary IV ONE (16:04)
[2017-11-16] MEDS: Ertapenem 1 GM in NS 55 ML IVPB SCH (17:45)
[2017-11-16 20:00] VITALS: BP 110/61
[2017-11-17] VITALS: BP 110/69
[2017-11-17 04:00] VITALS: BP 128/88
[2017-11-17 05:31] LABS: BASOPHILS % (AUTO) 0.5 % (0.0-2.0); EOSINOPHILS % (AUTO) 2.4 % (0.0-3.0); HEMATOCRIT 31.6 % (37.0-47.0); HEMOGLOBIN 10.6 G/DL (12.0-16.0); LYMPHOCYTES % (AUTO) 22.2 % (20.0-45.0); MEAN CORPUSCULAR VOLUME 86 FL (80-99); MONOCYTES % (AUTO) 12.1 % (1.0-10.0); NEUTROPHILS % (AUTO) 62.9 % (45.0-75.0); PLATELET COUNT 158 K/UL (150-450); RED BLOOD COUNT 3.65 M/UL (4.20-5.40); RED CELL DISTRIBUTION WIDTH 13.6 % (11.6-14.8)
[2017-11-17 05:54] LABS: ALANINE AMINOTRANSFERASE 19 U/L (12-78); ALBUMIN 2.4 G/DL (3.4-5.0); ALBUMIN/GLOBULIN RATIO 0.5 (1.0-2.7); ALKALINE PHOSPHATASE 135 U/L (46-116); ANION GAP 9 mmol/L (5-15); ASPARTATE AMINO TRANSFERASE 18 U/L (15-37); BILIRUBIN,TOTAL 0.2 MG/DL (0.2-1.0); BLOOD UREA NITROGEN 9 mg/dL (7-18); CALCIUM 8.8 MG/DL (8.5-10.1); CARBON DIOXIDE 24 MMOL/L (21-32); CHLORIDE 116 MMOL/L (98-107); CREATININE 1.6 MG/DL (0.55-1.30); PHOSPHORUS 4.5 MG/DL (2.5-4.9); SODIUM 149 MMOL/L (136-145)
--- NOTE | 2017-11-17 06:54 | Anethesia Preoperative Eval ---
Anesthesia Pre-op PMH/ROS General Date of Evaluation: Nov 17, 2017 Time of Evaluation: 06:51 Anesthesiologist: israel ASA Score: ASA 4 Mallampati Score Class I : Soft palate, uvula, fauces, pillars visible Class II: Soft palate, uvula, fauces visible Class III: Soft palate, base of uvula visible Class IV: Only hard plate visible Mallampati Classification: Class II Surgeon: neno Diagnosis: dysphagia Surgical Procedure: peg Anesthesia History: none Family History: no anesthesia problems Allergies: Coded Allergies: CEFEPIME (Unverified Allergy, Unknown, 11/09/17) Medications: see eMAR Past Medical History Cardiovascular: Reports: HTN, other - chf Gastrointestinal/Genitourinary: Reports: other - dysphagia, pyelonephritis, uti , kidney stones Neurologic/Psychiatric: Reports: other - traumatic brain injury, seizure, left hemiplegia Anesthesia Pre-op Phys. Exam Physician Exam Last Vital Signs Date Time Temp Pulse Resp B/P (MAP) Pulse Ox O2 Delivery O2 Flow Rate FiO2 11/17/17 08:00 110 11/17/17 08:00 Room Air 11/17/17 08:00 98.3 20 112/75 (87) 94 98.3 11/16/17 04:00 3.0 Constitutional: other - appears to be in moderate acute respiratory distress Neurologic: other Cardiovascular: RRR Respiratory: other - bilateral decreased breath sounds, scattered rhonchi, poor to fair air entry noted Gastrointestinal: S/NT/ND Airway Exam Mallampati Score: Class II MO: limited Neck: flexible TMD: 2fb ROM: limited Anesthesia Pre-op A/P Labs Hematology Test 11/17/17 03:45 White Blood Count 5.0 K/UL (4.8-10.8) Red Blood Count 3.65 M/UL (4.20-5.40) L Hemoglobin 10.6 G/DL (12.0-16.0) L Hematocrit 31.6 % (37.0-47.0) L Mean Corpuscular Volume 86 FL (80-99) Mean Corpuscular Hemoglobin 29.0 PG (27.0-31.0) Mean Corpuscular Hemoglobin Concent 33.5 G/DL (32.0-36.0) Red Cell Distribution Width 13.6 % (11.6-14.8) Platelet Count 158 K/UL (150-450) Mean Platelet Volume 9.2 FL (6.5-10.1) Neutrophils (%) (Auto) 62.9 % (45.0-75.0) Lymphocytes (%) (Auto) 22.2 % (20.0-45.0) Monocytes (%) (Auto) 12.1 % (1.0-10.0) H Eosinophils (%) (Auto) 2.4 % (0.0-3.0) Basophils (%) (Auto) 0.5 % (0.0-2.0) Coagulation Test 11/17/17 03:45 Prothrombin Time 10.7 SEC (9.30-11.50) Prothromb Time International Ratio 1.0 (0.9-1.1) Activated Partial Thromboplast Time 40 SEC (23-33) H Chemistry Test 11/17/17 03:45 Sodium Level 149 MMOL/L (136-145) H Potassium Level 3.0 MMOL/L (3.5-5.1) L Chloride Level 116 MMOL/L (98-107) H Carbon Dioxide Level 24 MMOL/L (21-32) Anion Gap 9 mmol/L (5-15) Blood Urea Nitrogen 9 mg/dL (7-18) Creatinine 1.6 MG/DL (0.55-1.30) H Estimat Glomerular Filtration Rate 33.6 mL/min (>60) Glucose Level 101 MG/DL (74-106) Calcium Level 8.8 MG/DL (8.5-10.1) Phosphorus Level 4.5 MG/DL (2.5-4.9) Magnesium Level 1.6 MG/DL (1.8-2.4) L Total Bilirubin 0.2 MG/DL (0.2-1.0) Aspartate Amino Transf (AST/SGOT) 18 U/L (15-37) Alanine Aminotransferase (ALT/SGPT) 19 U/L (12-78) Alkaline Phosphatase 135 U/L (46-116) H Total Protein 7.1 G/DL (6.4-8.2) Albumin 2.4 G/DL (3.4-5.0) L Globulin 4.7 g/dL Albumin/Globulin Ratio 0.5 (1.0-2.7) L Risk Assessment & Plan Assessment: asa4 Plan: respiratory status must be optimized prior to procedure. once optimized, mac Status Change Before Surgery: Yes - patient appears to be in respiratory distress, using accessory muscles and abdominal muscles to breathe and going apneic intermitently Magi Fuentes MD Nov 17, 2017 06:54
[2017-11-17] MEDS ORDERED: fentaNYL 100 mcg/2 mL IV PRN (07:00)
[2017-11-17] MEDS ORDERED: DiphenhydrAMINE 50mg/ml Inj IVP PRN (07:00)
[2017-11-17] MEDS ORDERED: Atropine Inj 1mg/10ml Syr IV PRN (07:00)
[2017-11-17] MEDS ORDERED: Midazolam 2mg/2ml Inj IVP PRN (07:00)
[2017-11-17 08:00] VITALS: BP 112/75
[2017-11-17] MEDS: Pantoprazole Inj IVP SCH (08:59)
[2017-11-17] MEDS: levETIRAcetam 500mg/NS100ml 100 ML IVPB SCH ×2 (09:00→20:43)
[2017-11-17] MEDS: Heparin 5000 units/ml inj SUBQ SCH ×2 (09:00→20:44)
--- NOTE | 2017-11-17 11:03 | Nephrology Progress Note ---
Assessment/Plan Problem List: (1) Acute renal failure (ARF) (2) Dehydration with hypernatremia (3) Severe sepsis (4) Shock (5) Dehydration, severe (6) Hypotension Assessment Acute kidney injury, likely on chronic kidney disease. Cr lowering Hypernatremia, with an initial sodium of 177. Na lowering Profound dehydration. improving Shock, likely septic. Hypercalcemia. on presentation Urinary tract infection. Has supraPubic cath History of traumatic brain injury, dementia, and seizure disorder. History of staghorn renal calculi with multiple UTIs, status post Plan Due PEG today K supplements D5W Albumin bolus PRN KCL, Mag , Phos as needed Antibiotics Anemia yarbrough Monitor renal parameters- Avoid Nephrotoxics DC midodrine , 10 TID, as not taking PO Due PEG- Consent taken Subjective ROS Limited/Unobtainable: Yes Objective Objective Last 24 Hour Vital Signs Date Time Temp Pulse Resp B/P (MAP) Pulse Ox O2 Delivery O2 Flow Rate FiO2 11/17/17 08:00 110 11/17/17 08:00 Room Air 11/17/17 08:00 98.3 112 20 112/75 (87) 94 98.3 11/17/17 04:03 107 11/17/17 04:00 97.7 101 21 128/88 (101) 93 97.7 11/17/17 03:45 107 11/17/17 03:43 Room Air 11/17/17 00:00 Room Air 11/17/17 00:00 97.9 109 22 110/69 (83) 93 97.9 11/16/17 20:00 97.1 97 20 110/61 (77) 96 97.1 11/16/17 20:00 97 11/16/17 20:00 Room Air 11/16/17 16:29 Room Air 11/16/17 16:00 97.4 95 22 124/64 (84) 95 97.4 11/16/17 16:00 99 11/16/17 12:53 95.5 95 23 111/63 (79) 98 95.5 11/16/17 12:11 Room Air 11/16/17 12:00 94 Intake and Output 11/16/17 11/17/17 19:00 07:00 Intake Total 1110 ml 925 ml Output Total 1000 ml 750 ml Balance 110 ml 175 ml Intake Oral 0 ml 0 ml IV Total 1110 ml 925 ml Tube Feeding 0 ml 0 ml Output Urine Total 1000 ml 750 ml # Bowel Movements 50 Laboratory Tests 11/16/17 12:45: Vancomycin Level Trough 21.4H 11/17/17 03:45: White Blood Count 5.0, Red Blood Count 3.65L, Hemoglobin 10.6L, Hematocrit 31.6L , Mean Corpuscular Volume 86, Mean Corpuscular Hemoglobin 29.0, Mean Corpuscular Hemoglobin Concent 33.5, Red Cell Distribution Width 13.6, Platelet Count 158, Mean Platelet Volume 9.2, Neutrophils (%) (Auto) 62.9, Lymphocytes (% ) (Auto) 22.2, Monocytes (%) (Auto) 12.1H, Eosinophils (%) (Auto) 2.4, Basophils (%) (Auto) 0.5, Prothrombin Time 10.7, Prothromb Time International Ratio 1.0, Activated Partial Thromboplast Time 40H, Sodium Level 149H, Potassium Level 3.0L, Chloride Level 116H, Carbon Dioxide Level 24, Anion Gap 9 , Blood Urea Nitrogen 9, Creatinine 1.6H, Estimat Glomerular Filtration Rate 33.6, Glucose Level 101, Calcium Level 8.8, Phosphorus Level 4.5, Magnesium Level 1.6L, Total Bilirubin 0.2, Aspartate Amino Transf (AST/SGOT) 18, Alanine Aminotransferase (ALT/SGPT) 19, Alkaline Phosphatase 135H, Total Protein 7.1, Albumin 2.4L, Globulin 4.7, Albumin/Globulin Ratio 0.5L Height (Feet): 5 Height (Inches): 2.00 Weight (Pounds): 130 General Appearance: no apparent distress Objective no change Parrish Luo MD Nov 17, 2017 11:03
--- NOTE | 2017-11-17 12:00 | Pre-Procedure Note/Attestation ---
Pre-Procedure Note/Attestation Complete Prior to Procedure Planned Procedure: not applicable Procedure Narrative: egd/peg Indications for Procedure Pre-Operative Diagnosis: dysphagia Attestation I attest that I discussed the nature of the procedure; its benefits; risks and complications; and alternatives (and the risks and benefits of such alternatives ), prior to the procedure, with the patient (or the patient's legal asset protection representative). I attest that, if there was a reasonable possibility of needing a blood transfusion, the patient (or the patient's legal asset protection representative) was given the [facility] standardized written summary, pursuant to the Osmin Kartik Blood Safety Act ([place] Health and Safety Code # 1645, as amended). I attest that I re-evaluated the patient just prior to the surgery and that there has been no change in the patient's H&P, except as documented below: Laith Chan MD Nov 17, 2017 12:00
[2017-11-17 12:05] VITALS: BP 132/67
--- NOTE | 2017-11-17 13:12 | Pulmonology Progress Note ---
Assessment/Plan Assessment/Plan ASSESSMENT: The patient is a 52-year-old intermediate resident with history of dementia, traumatic brain injury, recurrent staghorn calculi, recurrent urinary tract infection, suprapubic catheter, prior trach, seizure disorder, nonverbal at baseline, presenting initially for desaturation, but now is stable respiratory dynamics, but concerned for sepsis and profound dehydration with acute kidney injury, anion gap, metabolic acidosis, lactic acidosis, and hemoconcentration all likely secondary to a source. PROBLEM LIST: 1. SIRS/sepsis. 2. Shock, likely septic. 3. Profound dehydration. 4. Hypernatremia, with an initial sodium of 177. 5. Anion gap metabolic acidosis, lactic acidosis. 6. Acute kidney injury, likely on chronic kidney disease. 7. Hypercalcemia. 8. Urinary tract infection. 9. History of traumatic brain injury, dementia, and seizure disorder. 10. History of prior tracheostomy, status post takedown. 11. History of staghorn renal calculi with multiple UTIs, status post suprapubic catheter placement. 12. senior care resident. 13. Nonverbal at baseline. 14. Bed-bound. 15. Full Code. TREATMENT PLAN: 1. ABG, CXR 2. IVF per renal, replete electrolytes as able 3. PEG cancelled given concern for respiratory status, will need to be rescheduled 4. Continue ERTA and VANCO per ID, F/U Cx's 5. F/U recs 6. Heparin subcutaneous for DVT prophylaxis. 7. PRN O2, PRN HHN's 8. The patient is a Full Code, POLST reviewed by myself, we will need to discuss goals of care further. Subjective Allergies: Coded Allergies: CEFEPIME (Unverified Allergy, Unknown, 11/09/17) Subjective AFVSS, stable on RA Per report became apneic prior to PEG and procedure cancelled MS waxes and wane - currently awake and arouseable but non verba; No cough, no SOB, no F/C, no distress Objective Last 24 Hour Vital Signs Date Time Temp Pulse Resp B/P (MAP) Pulse Ox O2 Delivery O2 Flow Rate FiO2 11/17/17 12:05 97.3 102 20 132/67 (88) 94 97.3 11/17/17 08:00 110 11/17/17 08:00 Room Air 11/17/17 08:00 98.3 112 20 112/75 (87) 94 98.3 11/17/17 04:03 107 11/17/17 04:00 97.7 101 21 128/88 (101) 93 97.7 11/17/17 03:45 107 11/17/17 03:43 Room Air 11/17/17 00:00 Room Air 11/17/17 00:00 97.9 109 22 110/69 (83) 93 97.9 11/16/17 20:00 97.1 97 20 110/61 (77) 96 97.1 11/16/17 20:00 97 11/16/17 20:00 Room Air 11/16/17 16:29 Room Air 11/16/17 16:00 97.4 95 22 124/64 (84) 95 97.4 11/16/17 16:00 99 Intake and Output 11/16/17 11/17/17 19:00 07:00 Intake Total 1110 ml 925 ml Output Total 1000 ml 750 ml Balance 110 ml 175 ml Intake Oral 0 ml 0 ml IV Total 1110 ml 925 ml Tube Feeding 0 ml 0 ml Output Urine Total 1000 ml 750 ml # Bowel Movements 50 General Appearance: no acute distress, cachetic, other - non verba HEENT: normocephalic, atraumatic, anicteric, mucous membranes moist Respiratory/Chest: chest wall non-tender, lungs clear, normal breath sounds, no respiratory distress Cardiovascular: normal peripheral pulses, normal rate, regular rhythm Abdomen: normal bowel sounds, soft, non tender, no organomegaly, non distended , other - SPC Extremities: no cyanosis, no clubbing, no edema, other - contracted Laboratory Tests 11/17/17 03:45: White Blood Count 5.0, Red Blood Count 3.65L, Hemoglobin 10.6L, Hematocrit 31.6L , Mean Corpuscular Volume 86, Mean Corpuscular Hemoglobin 29.0, Mean Corpuscular Hemoglobin Concent 33.5, Red Cell Distribution Width 13.6, Platelet Count 158, Mean Platelet Volume 9.2, Neutrophils (%) (Auto) 62.9, Lymphocytes (% ) (Auto) 22.2, Monocytes (%) (Auto) 12.1H, Eosinophils (%) (Auto) 2.4, Basophils (%) (Auto) 0.5, Prothrombin Time 10.7, Prothromb Time International Ratio 1.0, Activated Partial Thromboplast Time 40H, Sodium Level 149H, Potassium Level 3.0L, Chloride Level 116H, Carbon Dioxide Level 24, Anion Gap 9 , Blood Urea Nitrogen 9, Creatinine 1.6H, Estimat Glomerular Filtration Rate 33.6, Glucose Level 101, Calcium Level 8.8, Phosphorus Level 4.5, Magnesium Level 1.6L, Total Bilirubin 0.2, Aspartate Amino Transf (AST/SGOT) 18, Alanine Aminotransferase (ALT/SGPT) 19, Alkaline Phosphatase 135H, Total Protein 7.1, Albumin 2.4L, Globulin 4.7, Albumin/Globulin Ratio 0.5L Current Medications Medications (Trade) Dose Ordered Sig/Tay Route PRN Reason Start Time Stop Time Status Last Admin Dose Admin Acetaminophen (Tylenol) 650 mg Q6H PRN ORAL Mild Pain/Temp > 101 11/09/17 21:30 12/09/17 21:29 Al Hydroxide/Mg Hydroxide (Mylanta) 15 ml Q1H PRN ORAL gi upset 11/17/17 07:00 11/17/17 14:00 Atropine Sulfate (Atropine) 0.5 mg Q5M PRN IV bpm less than 45 11/17/17 07:00 11/17/17 14:00 Dextrose 1,000 ml @ 50 mls/hr Q20H IV 11/17/17 09:00 12/15/17 08:59 11/17/17 08:59 Diphenhydramine HCl (Benadryl) 25 mg Q15M PRN IVP Itching 11/17/17 07:00 11/17/17 14:00 Ertapenem 1 gm/ Sodium Chloride 55 ml @ 110 mls/hr Q24H IVPB 11/15/17 18:00 11/20/17 17:59 11/16/17 17:45 Fentanyl Citrate (Sublimaze 100 mcg/2 mL) 25 mcg Q10M PRN IV Moderate Pain (Pain Scale 4-6) 11/17/17 07:00 11/17/17 14:00 Heparin Sodium (Porcine) (Heparin 5000 units/ml) 5,000 units EVERY 12 HOURS SUBQ 11/10/17 09:00 12/10/17 08:59 11/16/17 08:54 Hydralazine HCl (Apresoline) 5 mg Q30M PRN IV SBP>160 /DBP>90 11/17/17 07:00 11/17/17 14:00 Levetiracetam 100 ml @ 400 mls/hr Q12HR IVPB 11/09/17 22:30 12/09/17 22:29 11/17/17 09:00 Midazolam HCl (Versed 2mg/2ml vial) 1 mg Q15M PRN IVP For Anxiety 11/17/17 07:00 11/17/17 14:00 Ondansetron HCl (Zofran) 4 mg Q1H PRN IVP Nausea & Vomiting 11/17/17 07:00 11/17/17 14:00 Ondansetron HCl (Zofran) 4 mg Q4H PRN IVP Nausea & Vomiting 11/09/17 21:30 12/09/17 21:29 Pantoprazole (Protonix) 40 mg DAILY IVP 11/10/17 09:00 12/10/17 08:59 11/17/17 08:59 Sennosides (Senokot) 1 tab DAILY PRN ORAL Constipation 11/09/17 21:30 12/09/17 21:29 Vancomycin HCl (Vanco rx to dose) 1 ea DAILY PRN MISC Per rx protocol 11/12/17 13:30 12/12/17 13:29 Vancomycin HCl 500 mg/Dextrose 110 ml @ 110 mls/hr Q48H IVPB 11/17/17 13:00 11/22/17 12:59 Jose Montalvo MD Nov 17, 2017 13:12
--- NOTE | 2017-11-17 13:56 | General Progress Note ---
Assessment/Plan Problem List: (1) Hypotension ICD Codes: I95.9 - Hypotension, unspecified SNOMED: 35572548 (2) Encounter for PEG (percutaneous endoscopic gastrostomy) ICD Codes: Z43.1 - Encounter for attention to gastrostomy SNOMED: 254031323, 553221889 (3) Dehydration ICD Codes: E86.0 - Dehydration SNOMED: 25015324 (4) Colonization with VRE (vancomycin-resistant enterococcus) ICD Codes: Z22.338 - Carrier of other streptococcus SNOMED: 876895079 Assessment/Plan peg was canceled today due to respiratory distress plan bioethics eval to see if family can reveres POST if yes will plan NGTF and possible PEG when more stable Subjective ROS Limited/Unobtainable: No Allergies: Coded Allergies: CEFEPIME (Unverified Allergy, Unknown, 11/09/17) Objective Last 24 Hour Vital Signs Date Time Temp Pulse Resp B/P (MAP) Pulse Ox O2 Delivery O2 Flow Rate FiO2 11/17/17 12:05 97.3 102 20 132/67 (88) 94 97.3 11/17/17 12:00 102 11/17/17 08:00 110 11/17/17 08:00 Room Air 11/17/17 08:00 98.3 112 20 112/75 (87) 94 98.3 11/17/17 04:03 107 11/17/17 04:00 97.7 101 21 128/88 (101) 93 97.7 11/17/17 03:45 107 11/17/17 03:43 Room Air 11/17/17 00:00 Room Air 11/17/17 00:00 97.9 109 22 110/69 (83) 93 97.9 11/16/17 20:00 97.1 97 20 110/61 (77) 96 97.1 11/16/17 20:00 97 11/16/17 20:00 Room Air 11/16/17 16:29 Room Air 11/16/17 16:00 97.4 95 22 124/64 (84) 95 97.4 11/16/17 16:00 99 Intake and Output 11/16/17 11/17/17 19:00 07:00 Intake Total 1110 ml 925 ml Output Total 1000 ml 750 ml Balance 110 ml 175 ml Intake Oral 0 ml 0 ml IV Total 1110 ml 925 ml Tube Feeding 0 ml 0 ml Output Urine Total 1000 ml 750 ml # Bowel Movements 50 Laboratory Tests 11/17/17 03:45: White Blood Count 5.0, Red Blood Count 3.65L, Hemoglobin 10.6L, Hematocrit 31.6L , Mean Corpuscular Volume 86, Mean Corpuscular Hemoglobin 29.0, Mean Corpuscular Hemoglobin Concent 33.5, Red Cell Distribution Width 13.6, Platelet Count 158, Mean Platelet Volume 9.2, Neutrophils (%) (Auto) 62.9, Lymphocytes (% ) (Auto) 22.2, Monocytes (%) (Auto) 12.1H, Eosinophils (%) (Auto) 2.4, Basophils (%) (Auto) 0.5, Prothrombin Time 10.7, Prothromb Time International Ratio 1.0, Activated Partial Thromboplast Time 40H, Sodium Level 149H, Potassium Level 3.0L, Chloride Level 116H, Carbon Dioxide Level 24, Anion Gap 9 , Blood Urea Nitrogen 9, Creatinine 1.6H, Estimat Glomerular Filtration Rate 33.6, Glucose Level 101, Calcium Level 8.8, Phosphorus Level 4.5, Magnesium Level 1.6L, Total Bilirubin 0.2, Aspartate Amino Transf (AST/SGOT) 18, Alanine Aminotransferase (ALT/SGPT) 19, Alkaline Phosphatase 135H, Total Protein 7.1, Albumin 2.4L, Globulin 4.7, Albumin/Globulin Ratio 0.5L 11/17/17 13:09: Arterial Blood pH 7.430, Arterial Blood Partial Pressure CO2 31.2L, Arterial Blood Partial Pressure O2 50.1L, Arterial Blood HCO3 20.3L, Arterial Blood Oxygen Saturation 84.8L, Arterial Blood Base Excess -3.3, Yonathan Test Positive Height (Feet): 5 Height (Inches): 2.00 Weight (Pounds): 130 General Appearance: mild distress EENT: normal ENT inspection Neck: supple Cardiovascular: normal rate Respiratory/Chest: decreased breath sounds Abdomen: normal bowel sounds, non tender, soft Extremities: non-tender Laith Chan MD Nov 17, 2017 13:56
--- NOTE | 2017-11-17 14:54 | Infectious Diseases Prog Note ---
Assessment/Plan Problems: (1) Acute pyelonephritis Assessment & Plan: with MDR Providencia stuartii, and MRSA , suspect due to right ureter stent obstruction, continue vancomycin to cover for MRSA , and ertapenem for MDR Providencia stuartii for two weeks total , urology eval is in progress , may need stent removal . EOT 11/23/17 (2) Hydronephrosis of right kidney Assessment & Plan: suspect ureter stent malfunction , urology eval is in progress, may need stent removal (3) Severe sepsis Assessment & Plan: with staph simulans , most likely contamination , grew from one set only. already on vancomycin for two weeks for MRSA pyelonephritis, repeated blood culture is pending (4) Renal failure Assessment & Plan: continue hydration , monitor renal function, avoid nephrotoxics (5) Hypernatremia Assessment & Plan: due to free water loss , continue hydration with close monitor of serum sodium (6) Left shoulder pain Assessment & Plan: due to chronic rotator cuff syndrom, as evident by X ray , folllow up with ortho (7) Colonization with VRE (vancomycin-resistant enterococcus) Assessment & Plan: keep in contact isolation (8) Hypotension Assessment & Plan: doubt due to sepsis , suspect dehydration . cortisol level looks ok . repeated blood culture is negative Subjective ROS Limited/Unobtainable: Yes Allergies: Coded Allergies: CEFEPIME (Unverified Allergy, Unknown, 11/09/17) Subjective she was lying in bed, snoring , her PEG tube was canceled, unresponsive to verbal commands , a febrile Objective Vital Signs Last 24 Hour Vital Signs Date Time Temp Pulse Resp B/P (MAP) Pulse Ox O2 Delivery O2 Flow Rate FiO2 11/17/17 12:05 97.3 102 20 132/67 (88) 94 97.3 11/17/17 12:00 102 11/17/17 08:00 110 11/17/17 08:00 Room Air 11/17/17 08:00 98.3 112 20 112/75 (87) 94 98.3 11/17/17 04:03 107 11/17/17 04:00 97.7 101 21 128/88 (101) 93 97.7 11/17/17 03:45 107 11/17/17 03:43 Room Air 11/17/17 00:00 Room Air 11/17/17 00:00 97.9 109 22 110/69 (83) 93 97.9 11/16/17 20:00 97.1 97 20 110/61 (77) 96 97.1 11/16/17 20:00 97 11/16/17 20:00 Room Air 11/16/17 16:29 Room Air 11/16/17 16:00 97.4 95 22 124/64 (84) 95 97.4 11/16/17 16:00 99 Height (Feet): 5 Height (Inches): 2.00 Weight (Pounds): 130 General Appearance: WD/WN, no acute distress, cachetic, other - snoring HEENT: normocephalic, atraumatic, anicteric, mucous membranes moist, pharynx normal, supple, no JVD Respiratory/Chest: chest wall non-tender, no respiratory distress, no accessory muscle use, decreased breath sounds, crackles/rales Cardiovascular: normal peripheral pulses, normal rate, regular rhythm, no gallop/murmur, no JVD Abdomen: normal bowel sounds, soft, non tender, no organomegaly, non distended , no mass, no scars Extremities: no cyanosis, no clubbing Skin: no rash, no lesions, no ulcers Neurologic/Psychiatric: alert, unresponsiveness Lymphatic: no neck adenopathy, no groin adenopathy Musculoskeletal: normal muscle bulk, no effusion Laboratory Tests Test 11/17/17 03:45 11/17/17 13:09 White Blood Count 5.0 K/UL (4.8-10.8) Red Blood Count 3.65 M/UL (4.20-5.40) L Hemoglobin 10.6 G/DL (12.0-16.0) L Hematocrit 31.6 % (37.0-47.0) L Mean Corpuscular Volume 86 FL (80-99) Mean Corpuscular Hemoglobin 29.0 PG (27.0-31.0) Mean Corpuscular Hemoglobin Concent 33.5 G/DL (32.0-36.0) Red Cell Distribution Width 13.6 % (11.6-14.8) Platelet Count 158 K/UL (150-450) Mean Platelet Volume 9.2 FL (6.5-10.1) Neutrophils (%) (Auto) 62.9 % (45.0-75.0) Lymphocytes (%) (Auto) 22.2 % (20.0-45.0) Monocytes (%) (Auto) 12.1 % (1.0-10.0) H Eosinophils (%) (Auto) 2.4 % (0.0-3.0) Basophils (%) (Auto) 0.5 % (0.0-2.0) Prothrombin Time 10.7 SEC (9.30-11.50) Prothromb Time International Ratio 1.0 (0.9-1.1) Activated Partial Thromboplast Time 40 SEC (23-33) H Sodium Level 149 MMOL/L (136-145) H Potassium Level 3.0 MMOL/L (3.5-5.1) L Chloride Level 116 MMOL/L (98-107) H Carbon Dioxide Level 24 MMOL/L (21-32) Anion Gap 9 mmol/L (5-15) Blood Urea Nitrogen 9 mg/dL (7-18) Creatinine 1.6 MG/DL (0.55-1.30) H Estimat Glomerular Filtration Rate 33.6 mL/min (>60) Glucose Level 101 MG/DL (74-106) Calcium Level 8.8 MG/DL (8.5-10.1) Phosphorus Level 4.5 MG/DL (2.5-4.9) Magnesium Level 1.6 MG/DL (1.8-2.4) L Total Bilirubin 0.2 MG/DL (0.2-1.0) Aspartate Amino Transf (AST/SGOT) 18 U/L (15-37) Alanine Aminotransferase (ALT/SGPT) 19 U/L (12-78) Alkaline Phosphatase 135 U/L (46-116) H Total Protein 7.1 G/DL (6.4-8.2) Albumin 2.4 G/DL (3.4-5.0) L Globulin 4.7 g/dL Albumin/Globulin Ratio 0.5 (1.0-2.7) L Arterial Blood pH 7.430 (7.350-7.450) Arterial Blood Partial Pressure CO2 31.2 mmHg (35.0-45.0) L Arterial Blood Partial Pressure O2 50.1 mmHg (75.0-100.0) L Arterial Blood HCO3 20.3 mmol/L (22.0-26.0) L Arterial Blood Oxygen Saturation 84.8 % (92.0-98.0) L Arterial Blood Base Excess -3.3 Yonathan Test Positive Current Medications Medications (Trade) Dose Ordered Sig/Tay Route PRN Reason Start Time Stop Time Status Last Admin Dose Admin Acetaminophen (Tylenol) 650 mg Q6H PRN ORAL Mild Pain/Temp > 101 11/09/17 21:30 12/09/17 21:29 Dextrose 1,000 ml @ 50 mls/hr Q20H IV 11/17/17 09:00 12/15/17 08:59 11/17/17 08:59 Ertapenem 1 gm/ Sodium Chloride 55 ml @ 110 mls/hr Q24H IVPB 11/15/17 18:00 11/23/17 17:59 11/16/17 17:45 Heparin Sodium (Porcine) (Heparin 5000 units/ml) 5,000 units EVERY 12 HOURS SUBQ 11/10/17 09:00 12/10/17 08:59 11/16/17 08:54 Levetiracetam 100 ml @ 400 mls/hr Q12HR IVPB 11/09/17 22:30 12/09/17 22:29 11/17/17 09:00 Magnesium Sulfate 100 ml @ 100 mls/hr Q1H IVPB 11/17/17 13:30 11/17/17 15:29 11/17/17 14:46 Ondansetron HCl (Zofran) 4 mg Q4H PRN IVP Nausea & Vomiting 11/09/17 21:30 12/09/17 21:29 Pantoprazole (Protonix) 40 mg DAILY IVP 11/10/17 09:00 12/10/17 08:59 11/17/17 08:59 Sennosides (Senokot) 1 tab DAILY PRN ORAL Constipation 11/09/17 21:30 12/09/17 21:29 Vancomycin HCl (Vanco rx to dose) 1 ea DAILY PRN MISC Per rx protocol 11/12/17 13:30 12/12/17 13:29 Vancomycin HCl 500 mg/Dextrose 110 ml @ 110 mls/hr Q48H IVPB 11/17/17 13:00 11/22/17 12:59 Kortney Quiñones M.D. Nov 17, 2017 14:54
--- NOTE | 2017-11-17 15:41 | Diagnostic Imaging Report ---
Indication: Shortness of breath Technique: XRAY Chest 1v Comparison: 11/09/2017 Findings: Heart size and mediastinal contours are stable. There is apparent pulmonary vascular congestion although findings may be guided by low lung volumes. There is streaky right medial basilar opacity, likely atelectasis. No evidence of pneumothorax. No acute osseous abnormality. Portions of ventriculoperitoneal shunt are again noted without apparent discontinuity. Portions of bilateral ureteral stents partially visualized. Impression: Apparent development of pulmonary vascular congestion although this may be exaggerated due to lower lung volumes. Streaky opacity in the medial right base thought to represent subsegmental atelectasis. Correlate clinically to exclude the possibility of developing infiltrate.
[2017-11-17 16:00] VITALS: BP_SYST 132; BP_SYST 98; BP_DIAS 55; BP_DIAS 67
[2017-11-17] MEDS: Vancomycin 500mg/D5W 110ml IVPB SCH ×2 (16:05)
--- NOTE | 2017-11-17 16:10 | Urology Progress Note ---
Assessment/Plan Assessment/Plan 1. History of hydronephrosis that is chronic. 2. Renal insufficiency, acute on chronic, stabilized. 3. Hematuria. 4. Pyuria. 5. Proteinuria. 6. Urinary retention with chronic suprapubic tube. 7. Neurogenic bladder. sp tube indwelling hand irrigated, patent plan to change soon abx as ordered monitor renal fxn need old recs indwelling ureteral stents can be addressed by pt's outside urologist once medically more stable Subjective Allergies: Coded Allergies: CEFEPIME (Unverified Allergy, Unknown, 11/09/17) Subjective all noted Objective Last 24 Hour Vital Signs Date Time Temp Pulse Resp B/P (MAP) Pulse Ox O2 Delivery O2 Flow Rate FiO2 11/17/17 12:05 97.3 102 20 132/67 (88) 94 97.3 11/17/17 12:00 102 11/17/17 08:00 110 11/17/17 08:00 Room Air 11/17/17 08:00 98.3 112 20 112/75 (87) 94 98.3 11/17/17 04:03 107 11/17/17 04:00 97.7 101 21 128/88 (101) 93 97.7 11/17/17 03:45 107 11/17/17 03:43 Room Air 11/17/17 00:00 Room Air 11/17/17 00:00 97.9 109 22 110/69 (83) 93 97.9 11/16/17 20:00 97.1 97 20 110/61 (77) 96 97.1 11/16/17 20:00 97 11/16/17 20:00 Room Air 11/16/17 16:29 Room Air Intake and Output 11/16/17 11/17/17 19:00 07:00 Intake Total 1110 ml 925 ml Output Total 1000 ml 750 ml Balance 110 ml 175 ml Intake Oral 0 ml 0 ml IV Total 1110 ml 925 ml Tube Feeding 0 ml 0 ml Output Urine Total 1000 ml 750 ml # Bowel Movements 50 Microbiology Date/Time Source Procedure Growth Status 11/13/17 15:10 Blood Blood Culture - Preliminary NO GROWTH AFTER 72 HOURS Resulted 11/09/17 20:25 Nasal Nares MRSA Culture - Final Staphylococcus Aureus - Mrsa Complete 11/09/17 13:30 Urine,Clean Catch Urine Culture - Final Providencia Stuartii Staphylococcus Aureus - Mrsa Complete 11/10/17 20:25 Rectum - Final NO CARBAPENEM-RESISTANT ENTEROBACTERI... Complete Current Medications Medications (Trade) Dose Ordered Sig/Tay Route PRN Reason Start Time Stop Time Status Last Admin Dose Admin Acetaminophen (Tylenol) 650 mg Q6H PRN ORAL Mild Pain/Temp > 101 11/09/17 21:30 12/09/17 21:29 Dextrose 1,000 ml @ 50 mls/hr Q20H IV 11/17/17 09:00 12/15/17 08:59 11/17/17 08:59 Ertapenem 1 gm/ Sodium Chloride 55 ml @ 110 mls/hr Q24H IVPB 11/15/17 18:00 11/23/17 17:59 11/16/17 17:45 Heparin Sodium (Porcine) (Heparin 5000 units/ml) 5,000 units EVERY 12 HOURS SUBQ 11/10/17 09:00 12/10/17 08:59 11/16/17 08:54 Levetiracetam 100 ml @ 400 mls/hr Q12HR IVPB 11/09/17 22:30 12/09/17 22:29 11/17/17 09:00 Ondansetron HCl (Zofran) 4 mg Q4H PRN IVP Nausea & Vomiting 11/09/17 21:30 12/09/17 21:29 Pantoprazole (Protonix) 40 mg DAILY IVP 11/10/17 09:00 12/10/17 08:59 11/17/17 08:59 Sennosides (Senokot) 1 tab DAILY PRN ORAL Constipation 11/09/17 21:30 12/09/17 21:29 Vancomycin HCl (Vanco rx to dose) 1 ea DAILY PRN MISC Per rx protocol 11/12/17 13:30 12/12/17 13:29 Vancomycin HCl 500 mg/Dextrose 110 ml @ 110 mls/hr Q48H IVPB 11/17/17 13:00 11/22/17 12:59 11/17/17 16:05 Laboratory Tests 11/17/17 03:45: White Blood Count 5.0, Red Blood Count 3.65L, Hemoglobin 10.6L, Hematocrit 31.6L , Mean Corpuscular Volume 86, Mean Corpuscular Hemoglobin 29.0, Mean Corpuscular Hemoglobin Concent 33.5, Red Cell Distribution Width 13.6, Platelet Count 158, Mean Platelet Volume 9.2, Neutrophils (%) (Auto) 62.9, Lymphocytes (% ) (Auto) 22.2, Monocytes (%) (Auto) 12.1H, Eosinophils (%) (Auto) 2.4, Basophils (%) (Auto) 0.5, Prothrombin Time 10.7, Prothromb Time International Ratio 1.0, Activated Partial Thromboplast Time 40H, Sodium Level 149H, Potassium Level 3.0L, Chloride Level 116H, Carbon Dioxide Level 24, Anion Gap 9 , Blood Urea Nitrogen 9, Creatinine 1.6H, Estimat Glomerular Filtration Rate 33.6, Glucose Level 101, Calcium Level 8.8, Phosphorus Level 4.5, Magnesium Level 1.6L, Total Bilirubin 0.2, Aspartate Amino Transf (AST/SGOT) 18, Alanine Aminotransferase (ALT/SGPT) 19, Alkaline Phosphatase 135H, Total Protein 7.1, Albumin 2.4L, Globulin 4.7, Albumin/Globulin Ratio 0.5L 11/17/17 13:09: Arterial Blood pH 7.430, Arterial Blood Partial Pressure CO2 31.2L, Arterial Blood Partial Pressure O2 50.1L, Arterial Blood HCO3 20.3L, Arterial Blood Oxygen Saturation 84.8L, Arterial Blood Base Excess -3.3, Yonathan Test Positive Height (Feet): 5 Height (Inches): 2.00 Weight (Pounds): 130 Objective exam stable WILBER GALINDO Nov 17, 2017 16:10
[2017-11-17] MEDS: Ertapenem 1 GM in NS 55 ML IVPB SCH (17:45)
[2017-11-17] MEDS ORDERED: Tubing IV Secondary IV ONE (17:49)
[2017-11-17] MEDS ORDERED: NS 500ML ONE (17:49)
[2017-11-17 20:00] VITALS: BP 112/60
[2017-11-18] VITALS: BP 113/67
--- NOTE | 2017-11-18 01:37 | Diagnostic Imaging Report ---
APPROVED REPORT CPT Code: 81039 Present Symptoms Comments: Screening BILATERAL: Imaging reveals a patent deep venous system bilaterally. There is no evidence of thrombus within the femoral, popliteal or tibial segments. The greater saphenous veins are also within normal limits. Doppler indicates normal spontaneous flow within these segments.
[2017-11-18 04:00] VITALS: BP 116/68
[2017-11-18 06:02] LABS: BASOPHILS % (AUTO) 0.9 % (0.0-2.0); HEMATOCRIT 31.6 % (37.0-47.0); HEMOGLOBIN 10.6 G/DL (12.0-16.0); LYMPHOCYTES % (AUTO) 23.7 % (20.0-45.0); MEAN CORPUSCULAR VOLUME 87 FL (80-99); MONOCYTES % (AUTO) 10.8 % (1.0-10.0); NEUTROPHILS % (AUTO) 62.6 % (45.0-75.0); PLATELET COUNT 194 K/UL (150-450); RED BLOOD COUNT 3.63 M/UL (4.20-5.40); RED CELL DISTRIBUTION WIDTH 13.7 % (11.6-14.8); WHITE BLOOD COUNT 5.5 K/UL (4.8-10.8)
[2017-11-18 06:31] LABS: ANION GAP 8 mmol/L (5-15); BLOOD UREA NITROGEN 11 mg/dL (7-18); CALCIUM 9.1 MG/DL (8.5-10.1); CARBON DIOXIDE 26 MMOL/L (21-32); CHLORIDE 114 MMOL/L (98-107); CREATININE 1.7 MG/DL (0.55-1.30); POTASSIUM 3.5 MMOL/L (3.5-5.1); SODIUM 147 MMOL/L (136-145)
[2017-11-18 08:00] VITALS: BP 134/68
--- NOTE | 2017-11-18 08:42 | Pulmonology Progress Note ---
Assessment/Plan Assessment/Plan ASSESSMENT: The patient is a 52-year-old residential resident with history of dementia, traumatic brain injury, recurrent staghorn calculi, recurrent urinary tract infection, suprapubic catheter, prior trach, seizure disorder, nonverbal at baseline, presenting initially for desaturation, but now is stable respiratory dynamics, but concerned for sepsis and profound dehydration with acute kidney injury, anion gap, metabolic acidosis, lactic acidosis, and hemoconcentration all likely secondary to a source. PROBLEM LIST: 1. SIRS/sepsis. 2. Shock, likely septic. 3. Profound dehydration. 4. Hypernatremia, with an initial sodium of 177. 5. Anion gap metabolic acidosis, lactic acidosis. 6. Acute kidney injury, likely on chronic kidney disease. 7. Hypercalcemia. 8. Urinary tract infection. 9. History of traumatic brain injury, dementia, and seizure disorder. 10. History of prior tracheostomy, status post takedown. 11. History of staghorn renal calculi with multiple UTIs, status post suprapubic catheter placement. 12. [facility] resident. 13. Nonverbal at baseline. 14. Bed-bound. 15. Full Code. TREATMENT PLAN: 1. Lasix 40 IV 1 2. Cautious D5W per renal 3. PEG once respiratory status better 4. Continue ERTA and VANCO per ID, F/U Cx's 5. F/U recs, possible SPC change today 6. Heparin subcutaneous for DVT prophylaxis. 7. PRN O2, PRN HHN's 8. The patient is a Full Code, POLST reviewed by myself, we will need to discuss goals of care further. Subjective Allergies: Coded Allergies: CEFEPIME (Unverified Allergy, Unknown, 11/09/17) Subjective Inc O2 needs, now on 3L 7.43//50/20/84, CXR with PVC Inc clear secretions, inc edema No cough, no wheezing, no F/C Objective Last 24 Hour Vital Signs Date Time Temp Pulse Resp B/P (MAP) Pulse Ox O2 Delivery O2 Flow Rate FiO2 11/18/17 04:00 98.1 92 22 116/68 (84) 92 98.1 11/18/17 04:00 115 11/18/17 04:00 Room Air 11/18/17 00:00 Room Air 11/18/17 00:00 97.7 97 22 113/67 (82) 92 97.7 11/18/17 00:00 113 11/17/17 20:00 76 11/17/17 20:00 97.0 97 18 112/60 (77) 94 97.0 11/17/17 20:00 Room Air 11/17/17 17:32 20 95 11/17/17 16:18 94 18 98 11/17/17 16:00 Room Air 11/17/17 16:00 97.5 93 18 98/55 (69) 88 97.5 11/17/17 16:00 91 11/17/17 12:05 97.3 102 20 132/67 (88) 94 97.3 11/17/17 12:00 102 11/17/17 12:00 Room Air Intake and Output 11/17/17 11/18/17 19:00 07:00 Intake Total 1165 ml 675 ml Output Total 900 ml 1400 ml Balance 265 ml -725 ml IV Total 1165 ml 675 ml Output Urine Total 900 ml 1200 ml Stool Total 200 ml # Bowel Movements 30 General Appearance: cachetic, other - frail non-verbal HEENT: normocephalic, atraumatic, mucous membranes moist Respiratory/Chest: rhonchi Cardiovascular: normal peripheral pulses, normal rate, regular rhythm Abdomen: normal bowel sounds, soft, non tender, no organomegaly, other - SPC Extremities: no cyanosis, no clubbing, other - trace edema, contractures Laboratory Tests 11/17/17 13:09: Arterial Blood pH 7.430, Arterial Blood Partial Pressure CO2 31.2L, Arterial Blood Partial Pressure O2 50.1L, Arterial Blood HCO3 20.3L, Arterial Blood Oxygen Saturation 84.8L, Arterial Blood Base Excess -3.3, Yonathan Test Positive 11/18/17 04:48: White Blood Count 5.5, Red Blood Count 3.63L, Hemoglobin 10.6L, Hematocrit 31.6L , Mean Corpuscular Volume 87, Mean Corpuscular Hemoglobin 29.1, Mean Corpuscular Hemoglobin Concent 33.5, Red Cell Distribution Width 13.7, Platelet Count 194, Mean Platelet Volume 8.0, Neutrophils (%) (Auto) 62.6, Lymphocytes (% ) (Auto) 23.7, Monocytes (%) (Auto) 10.8H, Eosinophils (%) (Auto) 2.0, Basophils (%) (Auto) 0.9, Sodium Level 147H, Potassium Level 3.5, Chloride Level 114H, Carbon Dioxide Level 26, Anion Gap 8, Blood Urea Nitrogen 11, Creatinine 1.7H, Estimat Glomerular Filtration Rate 31.3, Glucose Level 92, Calcium Level 9.1 Current Medications Medications (Trade) Dose Ordered Sig/Tay Route PRN Reason Start Time Stop Time Status Last Admin Dose Admin Acetaminophen (Tylenol) 650 mg Q6H PRN ORAL Mild Pain/Temp > 101 11/09/17 21:30 12/09/17 21:29 Dextrose 1,000 ml @ 50 mls/hr Q20H IV 11/17/17 09:00 12/15/17 08:59 11/18/17 04:30 Ertapenem 1 gm/ Sodium Chloride 55 ml @ 110 mls/hr Q24H IVPB 11/15/17 18:00 11/23/17 17:59 11/17/17 17:45 Furosemide (Lasix) 40 mg ONCE ONCE IV 11/18/17 08:45 11/18/17 08:46 UNV Heparin Sodium (Porcine) (Heparin 5000 units/ml) 5,000 units EVERY 12 HOURS SUBQ 11/10/17 09:00 12/10/17 08:59 11/17/17 20:44 Levetiracetam 100 ml @ 400 mls/hr Q12HR IVPB 11/09/17 22:30 12/09/17 22:29 11/17/17 20:43 Ondansetron HCl (Zofran) 4 mg Q4H PRN IVP Nausea & Vomiting 11/09/17 21:30 12/09/17 21:29 Pantoprazole (Protonix) 40 mg DAILY IVP 11/10/17 09:00 12/10/17 08:59 11/17/17 08:59 Sennosides (Senokot) 1 tab DAILY PRN ORAL Constipation 11/09/17 21:30 12/09/17 21:29 Vancomycin HCl (Vanco rx to dose) 1 ea DAILY PRN MISC Per rx protocol 11/12/17 13:30 12/12/17 13:29 Vancomycin HCl 500 mg/Dextrose 110 ml @ 110 mls/hr Q48H IVPB 11/17/17 13:00 11/22/17 12:59 11/17/17 16:05 Jose Montalvo MD Nov 18, 2017 08:42
[2017-11-18] MEDS: Pantoprazole Inj IVP SCH (08:57)
[2017-11-18] MEDS: levETIRAcetam 500mg/NS100ml 100 ML IVPB SCH ×2 (08:57→21:09)
[2017-11-18] MEDS: Heparin 5000 units/ml inj SUBQ SCH ×2 (08:59→21:00)
--- NOTE | 2017-11-18 10:08 | Nephrology Progress Note ---
Assessment/Plan Problem List: (1) Acute renal failure (ARF) (2) Dehydration with hypernatremia (3) Severe sepsis (4) Shock (5) Dehydration, severe (6) Hypotension Assessment Acute kidney injury, likely on chronic kidney disease. Cr lowering Hypernatremia, with an initial sodium of 177. Na lowering Profound dehydration. improving Shock, likely septic. Hypercalcemia. on presentation Urinary tract infection. Has supraPubic cath History of traumatic brain injury, dementia, and seizure disorder. History of staghorn renal calculi with multiple UTIs, status post Plan Due PEG today K supplements D5W Albumin bolus PRN KCL, Mag , Phos as needed Antibiotics Anemia yarbrough Monitor renal parameters- Avoid Nephrotoxics DC midodrine , 10 TID, as not taking PO Due PEG- Consent taken Subjective ROS Limited/Unobtainable: Yes Objective Objective Last 24 Hour Vital Signs Date Time Temp Pulse Resp B/P (MAP) Pulse Ox O2 Delivery O2 Flow Rate FiO2 11/18/17 09:16 110 11/18/17 08:00 98.5 112 26 134/68 (90) 91 98.5 11/18/17 08:00 Nasal Cannula 3.0 11/18/17 04:00 98.1 92 22 116/68 (84) 92 98.1 11/18/17 04:00 115 11/18/17 04:00 Room Air 11/18/17 00:00 Room Air 11/18/17 00:00 97.7 97 22 113/67 (82) 92 97.7 11/18/17 00:00 113 11/17/17 20:00 76 11/17/17 20:00 97.0 97 18 112/60 (77) 94 97.0 11/17/17 20:00 Room Air 11/17/17 17:32 20 95 11/17/17 16:18 94 18 98 11/17/17 16:00 Room Air 11/17/17 16:00 97.5 93 18 98/55 (69) 88 97.5 11/17/17 16:00 91 11/17/17 12:05 97.3 102 20 132/67 (88) 94 97.3 11/17/17 12:00 102 11/17/17 12:00 Room Air Intake and Output 11/17/17 11/18/17 19:00 07:00 Intake Total 1165 ml 675 ml Output Total 900 ml 1400 ml Balance 265 ml -725 ml IV Total 1165 ml 675 ml Output Urine Total 900 ml 1200 ml Stool Total 200 ml # Bowel Movements 30 Laboratory Tests 11/17/17 13:09: Arterial Blood pH 7.430, Arterial Blood Partial Pressure CO2 31.2L, Arterial Blood Partial Pressure O2 50.1L, Arterial Blood HCO3 20.3L, Arterial Blood Oxygen Saturation 84.8L, Arterial Blood Base Excess -3.3, Yonathan Test Positive 11/18/17 04:48: White Blood Count 5.5, Red Blood Count 3.63L, Hemoglobin 10.6L, Hematocrit 31.6L , Mean Corpuscular Volume 87, Mean Corpuscular Hemoglobin 29.1, Mean Corpuscular Hemoglobin Concent 33.5, Red Cell Distribution Width 13.7, Platelet Count 194, Mean Platelet Volume 8.0, Neutrophils (%) (Auto) 62.6, Lymphocytes (% ) (Auto) 23.7, Monocytes (%) (Auto) 10.8H, Eosinophils (%) (Auto) 2.0, Basophils (%) (Auto) 0.9, Sodium Level 147H, Potassium Level 3.5, Chloride Level 114H, Carbon Dioxide Level 26, Anion Gap 8, Blood Urea Nitrogen 11, Creatinine 1.7H, Estimat Glomerular Filtration Rate 31.3, Glucose Level 92, Calcium Level 9.1 Height (Feet): 5 Height (Inches): 2.00 Weight (Pounds): 130 General Appearance: no apparent distress Neck: limited range of motion Cardiovascular: tachycardia Respiratory/Chest: decreased breath sounds Abdomen: soft Objective no change Parrish Luo MD Nov 18, 2017 10:08
[2017-11-18 12:00] VITALS: BP 112/72
--- NOTE | 2017-11-18 13:37 | GI Progress Note ---
Assessment/Plan Problems: (1) Electrolyte imbalance ICD Codes: E87.8 - Other disorders of electrolyte and fluid balance, not elsewhere classified SNOMED: 951839780 (2) Encounter for PEG (percutaneous endoscopic gastrostomy) ICD Codes: Z43.1 - Encounter for attention to gastrostomy SNOMED: 646397544, 147625081 (3) Dehydration ICD Codes: E86.0 - Dehydration SNOMED: 01762421 (4) Dehydration, severe ICD Codes: E86.0 - Dehydration SNOMED: 439581378 Status: unchanged Status Narrative Discussed with Dr. Chan. Assessment/Plan POLST was signed by son 1 year ago >> He has now agreed and consented to have PEG. plan for PEG when respiratory status stabilizes ST not done, patient unable to participate IV hydration electrolyte correction per Nephro ppi bowel regime fu labs The patient was seen and examined at bedside and all new and available data was reviewed in the patients chart. I agree with the above findings, impression and plan. (Patient seen earlier today. Signature stamp does not reflect patient encounter time.). - Laith Chan MD Subjective Subjective limited Objective Last 24 Hour Vital Signs Date Time Temp Pulse Resp B/P (MAP) Pulse Ox O2 Delivery O2 Flow Rate FiO2 11/18/17 12:00 98.2 114 24 112/72 (85) 90 98.2 11/18/17 12:00 Nasal Cannula 3.0 11/18/17 11:26 111 11/18/17 09:16 110 11/18/17 08:00 98.5 112 26 134/68 (90) 91 98.5 11/18/17 08:00 Nasal Cannula 3.0 11/18/17 04:00 98.1 92 22 116/68 (84) 92 98.1 11/18/17 04:00 115 11/18/17 04:00 Room Air 11/18/17 00:00 Room Air 11/18/17 00:00 97.7 97 22 113/67 (82) 92 97.7 11/18/17 00:00 113 11/17/17 20:00 76 11/17/17 20:00 97.0 97 18 112/60 (77) 94 97.0 11/17/17 20:00 Room Air 11/17/17 17:32 20 95 9/17/18 16:18 94 18 98 11/17/17 16:00 Room Air 11/17/17 16:00 97.5 93 18 98/55 (69) 88 97.5 11/17/17 16:00 91 Intake and Output 11/17/17 11/18/17 19:00 07:00 Intake Total 1165 ml 675 ml Output Total 900 ml 1400 ml Balance 265 ml -725 ml IV Total 1165 ml 675 ml Output Urine Total 900 ml 1200 ml Stool Total 200 ml # Bowel Movements 30 Laboratory Tests Test 11/18/17 04:48 White Blood Count 5.5 K/UL (4.8-10.8) Red Blood Count 3.63 M/UL (4.20-5.40) L Hemoglobin 10.6 G/DL (12.0-16.0) L Hematocrit 31.6 % (37.0-47.0) L Mean Corpuscular Volume 87 FL (80-99) Mean Corpuscular Hemoglobin 29.1 PG (27.0-31.0) Mean Corpuscular Hemoglobin Concent 33.5 G/DL (32.0-36.0) Red Cell Distribution Width 13.7 % (11.6-14.8) Platelet Count 194 K/UL (150-450) Mean Platelet Volume 8.0 FL (6.5-10.1) Neutrophils (%) (Auto) 62.6 % (45.0-75.0) Lymphocytes (%) (Auto) 23.7 % (20.0-45.0) Monocytes (%) (Auto) 10.8 % (1.0-10.0) H Eosinophils (%) (Auto) 2.0 % (0.0-3.0) Basophils (%) (Auto) 0.9 % (0.0-2.0) Sodium Level 147 MMOL/L (136-145) H Potassium Level 3.5 MMOL/L (3.5-5.1) Chloride Level 114 MMOL/L (98-107) H Carbon Dioxide Level 26 MMOL/L (21-32) Anion Gap 8 mmol/L (5-15) Blood Urea Nitrogen 11 mg/dL (7-18) Creatinine 1.7 MG/DL (0.55-1.30) H Estimat Glomerular Filtration Rate 31.3 mL/min (>60) Glucose Level 92 MG/DL (74-106) Calcium Level 9.1 MG/DL (8.5-10.1) Height (Feet): 5 Height (Inches): 2.00 Weight (Pounds): 130 General Appearance: lethargic Cardiovascular: normal rate Respiratory/Chest: no respiratory distress, other - dyspnea Abdominal Exam: soft Olivia Lubin NP Nov 18, 2017 13:37
--- NOTE | 2017-11-18 15:53 | Urology Progress Note ---
Assessment/Plan Assessment/Plan 1. History of hydronephrosis that is chronic. 2. Renal insufficiency, acute on chronic, stabilized. 3. Hematuria. 4. Pyuria. 5. Proteinuria. 6. Urinary retention with chronic suprapubic tube. 7. Neurogenic bladder. sp tube indwelling hand irrigated, patent I personally removed old sp tube and placed new 18f cath, irrigated well abx as ordered monitor renal fxn need old recs indwelling ureteral stents can be addressed by pt's outside urologist once medically more stable Subjective Allergies: Coded Allergies: CEFEPIME (Unverified Allergy, Unknown, 11/09/17) Subjective all noted Objective Last 24 Hour Vital Signs Date Time Temp Pulse Resp B/P (MAP) Pulse Ox O2 Delivery O2 Flow Rate FiO2 11/18/17 12:00 98.2 114 24 112/72 (85) 90 98.2 11/18/17 12:00 Nasal Cannula 3.0 11/18/17 11:26 111 11/18/17 09:16 110 11/18/17 08:00 98.5 112 26 134/68 (90) 91 98.5 11/18/17 08:00 Nasal Cannula 3.0 11/18/17 04:00 98.1 92 22 116/68 (84) 92 98.1 11/18/17 04:00 115 11/18/17 04:00 Room Air 11/18/17 00:00 Room Air 11/18/17 00:00 97.7 97 22 113/67 (82) 92 97.7 11/18/17 00:00 113 11/17/17 20:00 76 11/17/17 20:00 97.0 97 18 112/60 (77) 94 97.0 11/17/17 20:00 Room Air 11/17/17 17:32 20 95 11/17/17 16:18 94 18 98 11/17/17 16:00 Room Air 11/17/17 16:00 97.5 93 18 98/55 (69) 88 97.5 11/17/17 16:00 91 Intake and Output 11/17/17 11/18/17 19:00 07:00 Intake Total 1165 ml 675 ml Output Total 900 ml 1400 ml Balance 265 ml -725 ml IV Total 1165 ml 675 ml Output Urine Total 900 ml 1200 ml Stool Total 200 ml # Bowel Movements 30 Microbiology Date/Time Source Procedure Growth Status 11/13/17 15:10 Blood Blood Culture - Preliminary NO GROWTH AFTER 4 DAYS Resulted 11/09/17 20:25 Nasal Nares MRSA Culture - Final Staphylococcus Aureus - Mrsa Complete 11/09/17 13:30 Urine,Clean Catch Urine Culture - Final Providencia Stuartii Staphylococcus Aureus - Mrsa Complete 11/10/17 20:25 Rectum - Final NO CARBAPENEM-RESISTANT ENTEROBACTERI... Complete Current Medications Medications (Trade) Dose Ordered Sig/Tay Route PRN Reason Start Time Stop Time Status Last Admin Dose Admin Acetaminophen (Tylenol) 650 mg Q6H PRN ORAL Mild Pain/Temp > 101 11/09/17 21:30 12/09/17 21:29 Dextrose 1,000 ml @ 50 mls/hr Q20H IV 11/17/17 09:00 12/15/17 08:59 11/18/17 04:30 Ertapenem 1 gm/ Sodium Chloride 55 ml @ 110 mls/hr Q24H IVPB 11/15/17 18:00 11/23/17 17:59 11/17/17 17:45 Heparin Sodium (Porcine) (Heparin 5000 units/ml) 5,000 units EVERY 12 HOURS SUBQ 11/10/17 09:00 12/10/17 08:59 11/17/17 20:44 Levetiracetam 100 ml @ 400 mls/hr Q12HR IVPB 11/09/17 22:30 12/09/17 22:29 11/18/17 08:57 Ondansetron HCl (Zofran) 4 mg Q4H PRN IVP Nausea & Vomiting 11/09/17 21:30 12/09/17 21:29 Pantoprazole (Protonix) 40 mg DAILY IVP 11/10/17 09:00 12/10/17 08:59 11/18/17 08:57 Sennosides (Senokot) 1 tab DAILY PRN ORAL Constipation 11/09/17 21:30 12/09/17 21:29 Vancomycin HCl (Vanco rx to dose) 1 ea DAILY PRN MISC Per rx protocol 11/12/17 13:30 12/12/17 13:29 Vancomycin HCl 500 mg/Dextrose 110 ml @ 110 mls/hr Q48H IVPB 11/17/17 13:00 11/23/17 23:00 11/17/17 16:05 Laboratory Tests 11/18/17 04:48: White Blood Count 5.5, Red Blood Count 3.63L, Hemoglobin 10.6L, Hematocrit 31.6L , Mean Corpuscular Volume 87, Mean Corpuscular Hemoglobin 29.1, Mean Corpuscular Hemoglobin Concent 33.5, Red Cell Distribution Width 13.7, Platelet Count 194, Mean Platelet Volume 8.0, Neutrophils (%) (Auto) 62.6, Lymphocytes (% ) (Auto) 23.7, Monocytes (%) (Auto) 10.8H, Eosinophils (%) (Auto) 2.0, Basophils (%) (Auto) 0.9, Sodium Level 147H, Potassium Level 3.5, Chloride Level 114H, Carbon Dioxide Level 26, Anion Gap 8, Blood Urea Nitrogen 11, Creatinine 1.7H, Estimat Glomerular Filtration Rate 31.3, Glucose Level 92, Calcium Level 9.1 Height (Feet): 5 Height (Inches): 2.00 Weight (Pounds): 130 Objective exam stable WILBER GALINDO Nov 18, 2017 15:53
[2017-11-18 16:00] VITALS: BP 113/72
--- NOTE | 2017-11-18 16:48 | Infectious Diseases Prog Note ---
Assessment/Plan Problems: (1) Acute pyelonephritis Assessment & Plan: with MDR Providencia stuartii, and MRSA , suspect due to right ureter stent obstruction, continue vancomycin to cover for MRSA , and ertapenem for MDR Providencia stuartii for two weeks total , urology eval is in progress , may need stent removal . EOT 11/23/17 (2) Hydronephrosis of right kidney Assessment & Plan: suspect ureter stent malfunction , urology eval is in progress, may need stent removal (3) Severe sepsis Assessment & Plan: with staph simulans , most likely contamination , grew from one set only. already on vancomycin for two weeks for MRSA pyelonephritis, repeated blood culture is pending (4) Renal failure Assessment & Plan: continue hydration , monitor renal function, avoid nephrotoxics (5) Hypernatremia Assessment & Plan: due to free water loss , continue hydration with close monitor of serum sodium (6) Left shoulder pain Assessment & Plan: due to chronic rotator cuff syndrom, as evident by X ray , folllow up with ortho (7) Colonization with VRE (vancomycin-resistant enterococcus) Assessment & Plan: keep in contact isolation (8) Hypotension Assessment & Plan: doubt due to sepsis , suspect dehydration . cortisol level looks ok . repeated blood culture is negative Subjective ROS Limited/Unobtainable: Yes Allergies: Coded Allergies: CEFEPIME (Unverified Allergy, Unknown, 11/09/17) Subjective she was lying in bed, comfortable, unresponsive to verbal commands , a febrile Objective Vital Signs Last 24 Hour Vital Signs Date Time Temp Pulse Resp B/P (MAP) Pulse Ox O2 Delivery O2 Flow Rate FiO2 11/18/17 16:10 109 11/18/17 16:00 Nasal Cannula 3.0 11/18/17 16:00 98.0 106 22 113/72 (86) 95 98.0 11/18/17 15:55 Nasal Cannula 3.0 11/18/17 12:00 98.2 114 24 112/72 (85) 90 98.2 11/18/17 12:00 Nasal Cannula 3.0 11/18/17 11:26 111 11/18/17 09:16 110 11/18/17 08:00 98.5 112 26 134/68 (90) 91 98.5 11/18/17 08:00 Nasal Cannula 3.0 11/18/17 04:00 98.1 92 22 116/68 (84) 92 98.1 11/18/17 04:00 115 11/18/17 04:00 Room Air 11/18/17 00:00 Room Air 11/18/17 00:00 97.7 97 22 113/67 (82) 92 97.7 11/18/17 00:00 113 11/17/17 20:00 76 11/17/17 20:00 97.0 97 18 112/60 (77) 94 97.0 11/17/17 20:00 Room Air 11/17/17 17:32 20 95 Height (Feet): 5 Height (Inches): 2.00 Weight (Pounds): 130 General Appearance: WD/WN, no acute distress HEENT: normocephalic, atraumatic, anicteric, mucous membranes moist, PERRL Respiratory/Chest: chest wall non-tender, lungs clear, no respiratory distress , no accessory muscle use, decreased breath sounds, crackles/rales Cardiovascular: normal peripheral pulses, normal rate, regular rhythm, no gallop/murmur, no JVD Abdomen: normal bowel sounds, soft, non tender, no organomegaly, non distended , no mass, no scars Extremities: no cyanosis, no clubbing Skin: no rash, no lesions, ulcers Neurologic/Psychiatric: alert, unresponsiveness Lymphatic: no neck adenopathy, no groin adenopathy Musculoskeletal: normal muscle bulk, no effusion Laboratory Tests Test 11/18/17 04:48 White Blood Count 5.5 K/UL (4.8-10.8) Red Blood Count 3.63 M/UL (4.20-5.40) L Hemoglobin 10.6 G/DL (12.0-16.0) L Hematocrit 31.6 % (37.0-47.0) L Mean Corpuscular Volume 87 FL (80-99) Mean Corpuscular Hemoglobin 29.1 PG (27.0-31.0) Mean Corpuscular Hemoglobin Concent 33.5 G/DL (32.0-36.0) Red Cell Distribution Width 13.7 % (11.6-14.8) Platelet Count 194 K/UL (150-450) Mean Platelet Volume 8.0 FL (6.5-10.1) Neutrophils (%) (Auto) 62.6 % (45.0-75.0) Lymphocytes (%) (Auto) 23.7 % (20.0-45.0) Monocytes (%) (Auto) 10.8 % (1.0-10.0) H Eosinophils (%) (Auto) 2.0 % (0.0-3.0) Basophils (%) (Auto) 0.9 % (0.0-2.0) Sodium Level 147 MMOL/L (136-145) H Potassium Level 3.5 MMOL/L (3.5-5.1) Chloride Level 114 MMOL/L (98-107) H Carbon Dioxide Level 26 MMOL/L (21-32) Anion Gap 8 mmol/L (5-15) Blood Urea Nitrogen 11 mg/dL (7-18) Creatinine 1.7 MG/DL (0.55-1.30) H Estimat Glomerular Filtration Rate 31.3 mL/min (>60) Glucose Level 92 MG/DL (74-106) Calcium Level 9.1 MG/DL (8.5-10.1) Current Medications Medications (Trade) Dose Ordered Sig/Tay Route PRN Reason Start Time Stop Time Status Last Admin Dose Admin Acetaminophen (Tylenol) 650 mg Q6H PRN ORAL Mild Pain/Temp > 101 11/09/17 21:30 12/09/17 21:29 Dextrose 1,000 ml @ 50 mls/hr Q20H IV 11/17/17 09:00 12/15/17 08:59 11/18/17 04:30 Ertapenem 1 gm/ Sodium Chloride 55 ml @ 110 mls/hr Q24H IVPB 11/15/17 18:00 11/23/17 17:59 11/17/17 17:45 Heparin Sodium (Porcine) (Heparin 5000 units/ml) 5,000 units EVERY 12 HOURS SUBQ 11/10/17 09:00 12/10/17 08:59 11/17/17 20:44 Levetiracetam 100 ml @ 400 mls/hr Q12HR IVPB 11/09/17 22:30 12/09/17 22:29 11/18/17 08:57 Ondansetron HCl (Zofran) 4 mg Q4H PRN IVP Nausea & Vomiting 11/09/17 21:30 10/9/18 21:29 Pantoprazole (Protonix) 40 mg DAILY IVP 11/10/17 09:00 12/10/17 08:59 11/18/17 08:57 Sennosides (Senokot) 1 tab DAILY PRN ORAL Constipation 11/09/17 21:30 12/09/17 21:29 Vancomycin HCl (Vanco rx to dose) 1 ea DAILY PRN MISC Per rx protocol 11/12/17 13:30 12/12/17 13:29 Vancomycin HCl 500 mg/Dextrose 110 ml @ 110 mls/hr Q48H IVPB 11/17/17 13:00 11/23/17 23:00 11/17/17 16:05 Kortney Quiñones M.D. Nov 18, 2017 16:48
[2017-11-18] MEDS: Ertapenem 1 GM in NS 55 ML IVPB SCH (17:28)
[2017-11-18 20:00] VITALS: BP 109/62
[2017-11-19] VITALS: BP 125/76
[2017-11-19 04:00] VITALS: BP 114/67
[2017-11-19 05:14] LABS: BASOPHILS % (AUTO) 0.8 % (0.0-2.0); EOSINOPHILS % (AUTO) 0.3 % (0.0-3.0); HEMATOCRIT 32.8 % (37.0-47.0); HEMOGLOBIN 10.7 G/DL (12.0-16.0); LYMPHOCYTES % (AUTO) 12.1 % (20.0-45.0); MEAN CORPUSCULAR VOLUME 91 FL (80-99); MONOCYTES % (AUTO) 6.6 % (1.0-10.0); NEUTROPHILS % (AUTO) 80.2 % (45.0-75.0); PLATELET COUNT 303 K/UL (150-450); RED BLOOD COUNT 3.63 M/UL (4.20-5.40); RED CELL DISTRIBUTION WIDTH 14.2 % (11.6-14.8)
[2017-11-19 05:18] LABS: ANION GAP 7 mmol/L (5-15); BLOOD UREA NITROGEN 15 mg/dL (7-18); CALCIUM 8.6 MG/DL (8.5-10.1); CARBON DIOXIDE 27 MMOL/L (21-32); CHLORIDE 101 MMOL/L (98-107); CREATININE 1.8 MG/DL (0.55-1.30); POTASSIUM 3.6 MMOL/L (3.5-5.1); SODIUM 135 MMOL/L (136-145)
[2017-11-19 08:00] VITALS: BP 97/58
[2017-11-19] MEDS: Pantoprazole Inj IVP SCH (08:46)
[2017-11-19] MEDS: Heparin 5000 units/ml inj SUBQ SCH ×2 (08:47→20:29)
[2017-11-19] MEDS: levETIRAcetam 500mg/NS100ml 100 ML IVPB SCH ×2 (08:47→20:27)
--- NOTE | 2017-11-19 08:48 | Urology Progress Note ---
Assessment/Plan Assessment/Plan 1. History of hydronephrosis that is chronic. 2. Renal insufficiency, acute on chronic, stabilized. 3. Hematuria. 4. Pyuria. 5. Proteinuria. 6. Urinary retention with chronic suprapubic tube. 7. Neurogenic bladder. sp tube indwelling, last exchanged 11/18 hand irrigated, patent abx as ordered monitor renal fxn need old recs indwelling ureteral stents can be addressed by pt's outside urologist once medically more stable Subjective Allergies: Coded Allergies: CEFEPIME (Unverified Allergy, Unknown, 11/09/17) Subjective all noted Objective Last 24 Hour Vital Signs Date Time Temp Pulse Resp B/P (MAP) Pulse Ox O2 Delivery O2 Flow Rate FiO2 11/19/17 08:00 96.6 74 18 97/58 (71) 94 96.6 11/19/17 04:00 97.7 101 22 114/67 (83) 93 97.7 11/19/17 04:00 96 11/19/17 04:00 Nasal Cannula 2.0 11/19/17 00:00 89 11/19/17 00:00 Nasal Cannula 2.0 11/19/17 00:00 97.7 101 22 125/76 (92) 93 97.7 11/18/17 20:00 Nasal Cannula 2.0 11/18/17 20:00 108 11/18/17 20:00 97.7 103 24 109/62 (78) 94 97.7 11/18/17 16:10 109 11/18/17 16:00 Nasal Cannula 2.0 11/18/17 16:00 98.0 106 22 113/72 (86) 95 98.0 11/18/17 15:55 Nasal Cannula 3.0 11/18/17 12:00 98.2 114 24 112/72 (85) 90 98.2 11/18/17 12:00 Nasal Cannula 3.0 11/18/17 11:26 111 11/18/17 09:16 110 Intake and Output 11/18/17 11/19/17 19:00 07:00 Intake Total 755 ml 250 ml Output Total 1200 ml 650 ml Balance -445 ml -400 ml IV Total 755 ml 250 ml Output Urine Total 1100 ml 600 ml Stool Total 100 ml 50 ml Microbiology Date/Time Source Procedure Growth Status 11/13/17 15:10 Blood Blood Culture - Final NO GROWTH AFTER 5 DAYS Complete 11/09/17 20:25 Nasal Nares MRSA Culture - Final Staphylococcus Aureus - Mrsa Complete 11/09/17 13:30 Urine,Clean Catch Urine Culture - Final Providencia Stuartii Staphylococcus Aureus - Mrsa Complete 11/10/17 20:25 Rectum - Final NO CARBAPENEM-RESISTANT ENTEROBACTERI... Complete Current Medications Medications (Trade) Dose Ordered Sig/Tay Route PRN Reason Start Time Stop Time Status Last Admin Dose Admin Acetaminophen (Tylenol) 650 mg Q6H PRN ORAL Mild Pain/Temp > 101 11/09/17 21:30 12/09/17 21:29 Dextrose/ Electrolytes 1,000 ml @ 50 mls/hr Q20H IV 11/19/17 09:00 12/19/17 08:59 Ertapenem 1 gm/ Sodium Chloride 55 ml @ 110 mls/hr Q24H IVPB 11/15/17 18:00 11/23/17 17:59 11/18/17 17:28 Heparin Sodium (Porcine) (Heparin 5000 units/ml) 5,000 units EVERY 12 HOURS SUBQ 11/10/17 09:00 12/10/17 08:59 11/17/17 20:44 Levetiracetam 100 ml @ 400 mls/hr Q12HR IVPB 11/09/17 22:30 12/09/17 22:29 11/18/17 21:09 Ondansetron HCl (Zofran) 4 mg Q4H PRN IVP Nausea & Vomiting 11/09/17 21:30 12/09/17 21:29 Pantoprazole (Protonix) 40 mg DAILY IVP 11/10/17 09:00 12/10/17 08:59 11/18/17 08:57 Sennosides (Senokot) 1 tab DAILY PRN ORAL Constipation 11/09/17 21:30 12/09/17 21:29 Vancomycin HCl (Vanco rx to dose) 1 ea DAILY PRN MISC Per rx protocol 11/12/17 13:30 12/12/17 13:29 Vancomycin HCl 500 mg/Dextrose 110 ml @ 110 mls/hr Q48H IVPB 11/17/17 13:00 11/23/17 23:00 11/17/17 16:05 Laboratory Tests 11/19/17 04:19: White Blood Count 11.0#H, Red Blood Count 3.63L, Hemoglobin 10.7L, Hematocrit 32.8L, Mean Corpuscular Volume 91, Mean Corpuscular Hemoglobin 29.4, Mean Corpuscular Hemoglobin Concent 32.5, Red Cell Distribution Width 14.2, Platelet Count 303#, Mean Platelet Volume 8.2, Neutrophils (%) (Auto) 80.2H, Lymphocytes (%) (Auto) 12.1L, Monocytes (%) (Auto) 6.6, Eosinophils (%) (Auto) 0.3, Basophils (%) (Auto) 0.8, Sodium Level 135#L, Potassium Level 3.6, Chloride Level 101, Carbon Dioxide Level 27, Anion Gap 7, Blood Urea Nitrogen 15, Creatinine 1.8H, Estimat Glomerular Filtration Rate 29.3, Glucose Level 363#H, Calcium Level 8.6, Phosphorus Level 8.0H, Magnesium Level 2.2 Height (Feet): 5 Height (Inches): 2.00 Weight (Pounds): 128 Objective exam stable WILBER GALINDO Nov 19, 2017 08:48
--- NOTE | 2017-11-19 08:52 | Nephrology Progress Note ---
Assessment/Plan Problem List: (1) Acute renal failure (ARF) (2) Dehydration with hypernatremia (3) Severe sepsis (4) Shock (5) Dehydration, severe (6) Hypotension Assessment Acute kidney injury, likely on chronic kidney disease. Cr lowering Hypernatremia, with an initial sodium of 177. Na lowering Profound dehydration. improving Shock, likely septic. Hypercalcemia. on presentation Urinary tract infection. Has supraPubic cath History of traumatic brain injury, dementia, and seizure disorder. History of staghorn renal calculi with multiple UTIs, status post Plan Due PEG today K supplements D5W Albumin bolus PRN KCL, Mag , Phos as needed Antibiotics Anemia yarbrough Monitor renal parameters- Avoid Nephrotoxics DC midodrine , 10 TID, as not taking PO Due PEG- Consent taken Subjective ROS Limited/Unobtainable: Yes Objective Objective Last 24 Hour Vital Signs Date Time Temp Pulse Resp B/P (MAP) Pulse Ox O2 Delivery O2 Flow Rate FiO2 11/19/17 08:00 96.6 74 18 97/58 (71) 94 96.6 11/19/17 04:00 97.7 101 22 114/67 (83) 93 97.7 11/19/17 04:00 96 11/19/17 04:00 Nasal Cannula 2.0 11/19/17 00:00 89 11/19/17 00:00 Nasal Cannula 2.0 11/19/17 00:00 97.7 101 22 125/76 (92) 93 97.7 11/18/17 20:00 Nasal Cannula 2.0 11/18/17 20:00 108 11/18/17 20:00 97.7 103 24 109/62 (78) 94 97.7 11/18/17 16:10 109 11/18/17 16:00 Nasal Cannula 2.0 11/18/17 16:00 98.0 106 22 113/72 (86) 95 98.0 11/18/17 15:55 Nasal Cannula 3.0 11/18/17 12:00 98.2 114 24 112/72 (85) 90 98.2 11/18/17 12:00 Nasal Cannula 3.0 11/18/17 11:26 111 11/18/17 09:16 110 Intake and Output 11/18/17 11/19/17 19:00 07:00 Intake Total 755 ml 250 ml Output Total 1200 ml 650 ml Balance -445 ml -400 ml IV Total 755 ml 250 ml Output Urine Total 1100 ml 600 ml Stool Total 100 ml 50 ml Laboratory Tests 11/19/17 04:19: White Blood Count 11.0#H, Red Blood Count 3.63L, Hemoglobin 10.7L, Hematocrit 32.8L, Mean Corpuscular Volume 91, Mean Corpuscular Hemoglobin 29.4, Mean Corpuscular Hemoglobin Concent 32.5, Red Cell Distribution Width 14.2, Platelet Count 303#, Mean Platelet Volume 8.2, Neutrophils (%) (Auto) 80.2H, Lymphocytes (%) (Auto) 12.1L, Monocytes (%) (Auto) 6.6, Eosinophils (%) (Auto) 0.3, Basophils (%) (Auto) 0.8, Sodium Level 135#L, Potassium Level 3.6, Chloride Level 101, Carbon Dioxide Level 27, Anion Gap 7, Blood Urea Nitrogen 15, Creatinine 1.8H, Estimat Glomerular Filtration Rate 29.3, Glucose Level 363#H, Calcium Level 8.6, Phosphorus Level 8.0H, Magnesium Level 2.2 Height (Feet): 5 Height (Inches): 2.00 Weight (Pounds): 128 General Appearance: no apparent distress Cardiovascular: tachycardia Respiratory/Chest: decreased breath sounds Abdomen: soft Objective no change Parrish Luo MD Nov 19, 2017 08:52
[2017-11-19 12:00] VITALS: BP 101/58
[2017-11-19] MEDS ORDERED: Sodium Chloride 500ML 500 ML IV ONE (12:45)
[2017-11-19] MEDS: Vancomycin 500mg/D5W 110ml IVPB SCH ×2 (13:13)
--- NOTE | 2017-11-19 14:12 | GI Progress Note ---
Assessment/Plan Problems: (1) Electrolyte imbalance ICD Codes: E87.8 - Other disorders of electrolyte and fluid balance, not elsewhere classified SNOMED: 759019042 (2) Encounter for PEG (percutaneous endoscopic gastrostomy) ICD Codes: Z43.1 - Encounter for attention to gastrostomy SNOMED: 548846546, 398779781 (3) Dehydration ICD Codes: E86.0 - Dehydration SNOMED: 24140100 (4) Dehydration, severe ICD Codes: E86.0 - Dehydration SNOMED: 330889069 Status: stable, unchanged Status Narrative Discussed with Dr. Chan. Assessment/Plan POLST was signed by son 1 year ago >> He has now agreed and consented for PEG. PEG scheduled for tomorrow. - hold all blood thinners tonight IV hydration electrolyte correction per Nephro ppi bowel regime fu labs The patient was seen and examined at bedside and all new and available data was reviewed in the patients chart. I agree with the above findings, impression and plan. (Patient seen earlier today. Signature stamp does not reflect patient encounter time.). - Laith Chan MD Subjective Subjective limited Objective Last 24 Hour Vital Signs Date Time Temp Pulse Resp B/P (MAP) Pulse Ox O2 Delivery O2 Flow Rate FiO2 11/19/17 12:00 86 11/19/17 12:00 96.6 100 17 101/58 (72) 94 96.6 11/19/17 12:00 Nasal Cannula 2.0 11/19/17 08:00 Nasal Cannula 2.0 11/19/17 08:00 96.6 74 18 97/58 (71) 94 96.6 11/19/17 08:00 101 11/19/17 04:00 97.7 101 22 114/67 (83) 93 97.7 11/19/17 04:00 96 11/19/17 04:00 Nasal Cannula 2.0 11/19/17 00:00 89 11/19/17 00:00 Nasal Cannula 2.0 11/19/17 00:00 97.7 101 22 125/76 (92) 93 97.7 11/18/17 20:00 Nasal Cannula 2.0 11/18/17 20:00 108 11/18/17 20:00 97.7 103 24 109/62 (78) 94 97.7 9/18/18 16:10 109 11/18/17 16:00 Nasal Cannula 2.0 11/18/17 16:00 98.0 106 22 113/72 (86) 95 98.0 11/18/17 15:55 Nasal Cannula 3.0 Intake and Output 11/18/17 11/19/17 19:00 07:00 Intake Total 755 ml 300 ml Output Total 1200 ml 650 ml Balance -445 ml -350 ml IV Total 755 ml 300 ml Output Urine Total 1100 ml 600 ml Stool Total 100 ml 50 ml Laboratory Tests Test 11/19/17 04:19 White Blood Count 11.0 K/UL (4.8-10.8) #H Red Blood Count 3.63 M/UL (4.20-5.40) L Hemoglobin 10.7 G/DL (12.0-16.0) L Hematocrit 32.8 % (37.0-47.0) L Mean Corpuscular Volume 91 FL (80-99) Mean Corpuscular Hemoglobin 29.4 PG (27.0-31.0) Mean Corpuscular Hemoglobin Concent 32.5 G/DL (32.0-36.0) Red Cell Distribution Width 14.2 % (11.6-14.8) Platelet Count 303 K/UL (150-450) # Mean Platelet Volume 8.2 FL (6.5-10.1) Neutrophils (%) (Auto) 80.2 % (45.0-75.0) H Lymphocytes (%) (Auto) 12.1 % (20.0-45.0) L Monocytes (%) (Auto) 6.6 % (1.0-10.0) Eosinophils (%) (Auto) 0.3 % (0.0-3.0) Basophils (%) (Auto) 0.8 % (0.0-2.0) Sodium Level 135 MMOL/L (136-145) #L Potassium Level 3.6 MMOL/L (3.5-5.1) Chloride Level 101 MMOL/L (98-107) Carbon Dioxide Level 27 MMOL/L (21-32) Anion Gap 7 mmol/L (5-15) Blood Urea Nitrogen 15 mg/dL (7-18) Creatinine 1.8 MG/DL (0.55-1.30) H Estimat Glomerular Filtration Rate 29.3 mL/min (>60) Glucose Level 363 MG/DL (74-106) #H Calcium Level 8.6 MG/DL (8.5-10.1) Phosphorus Level 8.0 MG/DL (2.5-4.9) H Magnesium Level 2.2 MG/DL (1.8-2.4) Height (Feet): 5 Height (Inches): 2.00 Weight (Pounds): 128 General Appearance: lethargic, mild distress Cardiovascular: normal rate Respiratory/Chest: normal breath sounds Abdominal Exam: normal bowel sounds, non tender, soft Extremities: non-tender Olivia Lubin NP Nov 19, 2017 14:12
--- NOTE | 2017-11-19 14:29 | Infectious Diseases Prog Note ---
Assessment/Plan Problems: (1) Acute pyelonephritis Assessment & Plan: with MDR Providencia stuartii, and MRSA , suspect due to right ureter stent obstruction, continue vancomycin to cover for MRSA , and ertapenem for MDR Providencia stuartii for two weeks total , urology eval is in progress , may need stent removal . EOT 11/23/17 (2) Hydronephrosis of right kidney Assessment & Plan: suspect ureter stent malfunction , urology eval is in progress, may need stent removal (3) Severe sepsis Assessment & Plan: with staph simulans , most likely contamination , grew from one set only. already on vancomycin for two weeks for MRSA pyelonephritis, repeated blood culture is negative (4) Renal failure Assessment & Plan: continue aggressive hydration , monitor renal function, avoid nephrotoxics (5) Left shoulder pain Assessment & Plan: due to chronic rotator cuff syndrom, as evident by X ray , folllow up with ortho (6) Colonization with VRE (vancomycin-resistant enterococcus) Assessment & Plan: keep in contact isolation (7) Hypotension Assessment & Plan: doubt due to sepsis , suspect dehydration . cortisol level looks ok . repeated blood culture is negative (8) Diarrhea Assessment & Plan: will check stool for C diff , continue aggressive hydration Subjective ROS Limited/Unobtainable: Yes Allergies: Coded Allergies: CEFEPIME (Unverified Allergy, Unknown, 11/09/17) Subjective she was lying in bed, comfortable, unresponsive to verbal commands , a febrile Objective Vital Signs Last 24 Hour Vital Signs Date Time Temp Pulse Resp B/P (MAP) Pulse Ox O2 Delivery O2 Flow Rate FiO2 11/19/17 12:00 86 11/19/17 12:00 96.6 100 17 101/58 (72) 94 96.6 11/19/17 12:00 Nasal Cannula 2.0 11/19/17 08:00 Nasal Cannula 2.0 11/19/17 08:00 96.6 74 18 97/58 (71) 94 96.6 11/19/17 08:00 101 11/19/17 04:00 97.7 101 22 114/67 (83) 93 97.7 11/19/17 04:00 96 11/19/17 04:00 Nasal Cannula 2.0 11/19/17 00:00 89 11/19/17 00:00 Nasal Cannula 2.0 11/19/17 00:00 97.7 101 22 125/76 (92) 93 97.7 11/18/17 20:00 Nasal Cannula 2.0 11/18/17 20:00 108 11/18/17 20:00 97.7 103 24 109/62 (78) 94 97.7 11/18/17 16:10 109 11/18/17 16:00 Nasal Cannula 2.0 11/18/17 16:00 98.0 106 22 113/72 (86) 95 98.0 11/18/17 15:55 Nasal Cannula 3.0 Height (Feet): 5 Height (Inches): 2.00 Weight (Pounds): 128 General Appearance: WD/WN, no acute distress HEENT: normocephalic, atraumatic, anicteric, mucous membranes moist, PERRL Respiratory/Chest: chest wall non-tender, no respiratory distress, no accessory muscle use, decreased breath sounds, crackles/rales Cardiovascular: normal peripheral pulses, normal rate, regular rhythm, no gallop/murmur, no JVD Abdomen: normal bowel sounds, soft, non tender, no organomegaly, non distended , no mass, no scars Extremities: no cyanosis, no clubbing Skin: no rash, no lesions, ulcers Neurologic/Psychiatric: alert, unresponsiveness Lymphatic: no neck adenopathy, no groin adenopathy Musculoskeletal: normal muscle bulk, no effusion Laboratory Tests Test 11/19/17 04:19 White Blood Count 11.0 K/UL (4.8-10.8) #H Red Blood Count 3.63 M/UL (4.20-5.40) L Hemoglobin 10.7 G/DL (12.0-16.0) L Hematocrit 32.8 % (37.0-47.0) L Mean Corpuscular Volume 91 FL (80-99) Mean Corpuscular Hemoglobin 29.4 PG (27.0-31.0) Mean Corpuscular Hemoglobin Concent 32.5 G/DL (32.0-36.0) Red Cell Distribution Width 14.2 % (11.6-14.8) Platelet Count 303 K/UL (150-450) # Mean Platelet Volume 8.2 FL (6.5-10.1) Neutrophils (%) (Auto) 80.2 % (45.0-75.0) H Lymphocytes (%) (Auto) 12.1 % (20.0-45.0) L Monocytes (%) (Auto) 6.6 % (1.0-10.0) Eosinophils (%) (Auto) 0.3 % (0.0-3.0) Basophils (%) (Auto) 0.8 % (0.0-2.0) Sodium Level 135 MMOL/L (136-145) #L Potassium Level 3.6 MMOL/L (3.5-5.1) Chloride Level 101 MMOL/L (98-107) Carbon Dioxide Level 27 MMOL/L (21-32) Anion Gap 7 mmol/L (5-15) Blood Urea Nitrogen 15 mg/dL (7-18) Creatinine 1.8 MG/DL (0.55-1.30) H Estimat Glomerular Filtration Rate 29.3 mL/min (>60) Glucose Level 363 MG/DL (74-106) #H Calcium Level 8.6 MG/DL (8.5-10.1) Phosphorus Level 8.0 MG/DL (2.5-4.9) H Magnesium Level 2.2 MG/DL (1.8-2.4) Current Medications Medications (Trade) Dose Ordered Sig/Tay Route PRN Reason Start Time Stop Time Status Last Admin Dose Admin Acetaminophen (Tylenol) 650 mg Q6H PRN ORAL Mild Pain/Temp > 101 11/09/17 21:30 12/09/17 21:29 Dextrose/ Electrolytes 1,000 ml @ 50 mls/hr Q20H IV 11/19/17 09:00 12/19/17 08:59 11/19/17 09:45 Ertapenem 1 gm/ Sodium Chloride 55 ml @ 110 mls/hr Q24H IVPB 11/15/17 18:00 11/23/17 17:59 11/18/17 17:28 Heparin Sodium (Porcine) (Heparin 5000 units/ml) 5,000 units EVERY 12 HOURS SUBQ 11/10/17 09:00 12/10/17 08:59 11/19/17 08:47 Levetiracetam 100 ml @ 400 mls/hr Q12HR IVPB 11/09/17 22:30 12/09/17 22:29 11/19/17 08:47 Ondansetron HCl (Zofran) 4 mg Q4H PRN IVP Nausea & Vomiting 11/09/17 21:30 12/09/17 21:29 Pantoprazole (Protonix) 40 mg DAILY IVP 11/10/17 09:00 12/10/17 08:59 11/19/17 08:46 Sennosides (Senokot) 1 tab DAILY PRN ORAL Constipation 11/09/17 21:30 12/09/17 21:29 Vancomycin HCl (Vanco rx to dose) 1 ea DAILY PRN MISC Per rx protocol 11/12/17 13:30 12/12/17 13:29 Vancomycin HCl 500 mg/Dextrose 110 ml @ 110 mls/hr Q48H IVPB 11/17/17 13:00 11/23/17 23:00 11/19/17 13:13 Kortney Quiñones M.D. Nov 19, 2017 14:29
[2017-11-19 16:00] VITALS: BP 101/68
[2017-11-19] MEDS: Ertapenem 1 GM in NS 55 ML IVPB SCH (17:38)
--- NOTE | 2017-11-19 17:45 | Pulmonology Progress Note ---
Assessment/Plan Assessment/Plan ASSESSMENT: The patient is a 52-year-old halfway resident with history of dementia, traumatic brain injury, recurrent staghorn calculi, recurrent urinary tract infection, suprapubic catheter, prior trach, seizure disorder, nonverbal at baseline, presenting initially for desaturation, but now is stable respiratory dynamics, but concerned for sepsis and profound dehydration with acute kidney injury, anion gap, metabolic acidosis, lactic acidosis, and hemoconcentration all likely secondary to a source. PROBLEM LIST: 1. SIRS/sepsis. 2. Shock, likely septic. 3. Profound dehydration. 4. Hypernatremia, with an initial sodium of 177. 5. Anion gap metabolic acidosis, lactic acidosis. 6. Acute kidney injury, likely on chronic kidney disease. 7. Hypercalcemia. 8. Urinary tract infection. 9. History of traumatic brain injury, dementia, and seizure disorder. 10. History of prior tracheostomy, status post takedown. 11. History of staghorn renal calculi with multiple UTIs, status post suprapubic catheter placement. 12. intermediate resident. 13. Nonverbal at baseline. 14. Bed-bound. 15. Full Code. TREATMENT PLAN: 1. S/P 500 cc NS bolus, IVF per renal 2. PEG tomorrow 3. PRN O2, PRN HHN's 4. Continue ERTA and VANCO per ID, F/U Cx's, F/U C diff, monitor WCt 5. F/U recs 6. Heparin subcutaneous for DVT prophylaxis. 7. The patient is a Full Code, POLST reviewed by myself, we will need to discuss goals of care further. Subjective Allergies: Coded Allergies: CEFEPIME (Unverified Allergy, Unknown, 11/09/17) Subjective BP low this am responded to IVF, Cr 1.8, WCt 11 No change in MS, o2 needs stable, no F/C Objective Last 24 Hour Vital Signs Date Time Temp Pulse Resp B/P (MAP) Pulse Ox O2 Delivery O2 Flow Rate FiO2 11/19/17 16:00 91 11/19/17 16:00 Nasal Cannula 2.0 11/19/17 16:00 96.6 96 17 101/68 (79) 94 96.6 11/19/17 12:00 86 11/19/17 12:00 96.6 100 17 101/58 (72) 94 96.6 11/19/17 12:00 Nasal Cannula 2.0 11/19/17 08:00 Nasal Cannula 2.0 11/19/17 08:00 96.6 74 18 97/58 (71) 94 96.6 11/19/17 08:00 101 11/19/17 04:00 97.7 101 22 114/67 (83) 93 97.7 11/19/17 04:00 96 11/19/17 04:00 Nasal Cannula 2.0 11/19/17 00:00 89 11/19/17 00:00 Nasal Cannula 2.0 11/19/17 00:00 97.7 101 22 125/76 (92) 93 97.7 11/18/17 20:00 Nasal Cannula 2.0 11/18/17 20:00 108 11/18/17 20:00 97.7 103 24 109/62 (78) 94 97.7 Intake and Output 11/18/17 11/19/17 19:00 07:00 Intake Total 755 ml 300 ml Output Total 1200 ml 650 ml Balance -445 ml -350 ml IV Total 755 ml 300 ml Output Urine Total 1100 ml 600 ml Stool Total 100 ml 50 ml General Appearance: no acute distress, cachetic HEENT: normocephalic, atraumatic, anicteric, mucous membranes moist Respiratory/Chest: rhonchi Cardiovascular: normal peripheral pulses, tachycardia Abdomen: normal bowel sounds, soft, non tender, no organomegaly, non distended , other - SPC Extremities: no cyanosis, no clubbing, no edema, other - contractures Laboratory Tests 11/19/17 04:19: White Blood Count 11.0#H, Red Blood Count 3.63L, Hemoglobin 10.7L, Hematocrit 32.8L, Mean Corpuscular Volume 91, Mean Corpuscular Hemoglobin 29.4, Mean Corpuscular Hemoglobin Concent 32.5, Red Cell Distribution Width 14.2, Platelet Count 303#, Mean Platelet Volume 8.2, Neutrophils (%) (Auto) 80.2H, Lymphocytes (%) (Auto) 12.1L, Monocytes (%) (Auto) 6.6, Eosinophils (%) (Auto) 0.3, Basophils (%) (Auto) 0.8, Sodium Level 135#L, Potassium Level 3.6, Chloride Level 101, Carbon Dioxide Level 27, Anion Gap 7, Blood Urea Nitrogen 15, Creatinine 1.8H, Estimat Glomerular Filtration Rate 29.3, Glucose Level 363#H, Calcium Level 8.6, Phosphorus Level 8.0H, Magnesium Level 2.2 Current Medications Medications (Trade) Dose Ordered Sig/Tay Route PRN Reason Start Time Stop Time Status Last Admin Dose Admin Acetaminophen (Tylenol) 650 mg Q6H PRN ORAL Mild Pain/Temp > 101 11/09/17 21:30 12/09/17 21:29 Dextrose/ Electrolytes 1,000 ml @ 50 mls/hr Q20H IV 11/19/17 09:00 12/19/17 08:59 11/19/17 09:45 Ertapenem 1 gm/ Sodium Chloride 55 ml @ 110 mls/hr Q24H IVPB 11/15/17 18:00 11/23/17 17:59 11/19/17 17:38 Heparin Sodium (Porcine) (Heparin 5000 units/ml) 5,000 units EVERY 12 HOURS SUBQ 11/10/17 09:00 12/10/17 08:59 11/19/17 08:47 Levetiracetam 100 ml @ 400 mls/hr Q12HR IVPB 11/09/17 22:30 12/09/17 22:29 11/19/17 08:47 Ondansetron HCl (Zofran) 4 mg Q4H PRN IVP Nausea & Vomiting 11/09/17 21:30 12/09/17 21:29 Pantoprazole (Protonix) 40 mg DAILY IVP 11/10/17 09:00 12/10/17 08:59 11/19/17 08:46 Sennosides (Senokot) 1 tab DAILY PRN ORAL Constipation 11/09/17 21:30 12/09/17 21:29 Vancomycin HCl (Vanco rx to dose) 1 ea DAILY PRN MISC Per rx protocol 11/12/17 13:30 12/12/17 13:29 Vancomycin HCl 500 mg/Dextrose 110 ml @ 110 mls/hr Q48H IVPB 11/17/17 13:00 11/23/17 23:00 11/19/17 13:13 Jose Montalvo MD Nov 19, 2017 17:45
[2017-11-19 20:00] VITALS: BP 90/60
[2017-11-20] VITALS: BP 97/47
[2017-11-20 04:00] VITALS: BP 95/61
[2017-11-20 04:30] LABS: BASOPHILS % (AUTO) 0.2 % (0.0-2.0); EOSINOPHILS % (AUTO) 0.2 % (0.0-3.0); HEMATOCRIT 28.8 % (37.0-47.0); HEMOGLOBIN 8.9 G/DL (12.0-16.0); LYMPHOCYTES % (AUTO) 12.9 % (20.0-45.0); MEAN CORPUSCULAR VOLUME 91 FL (80-99); MONOCYTES % (AUTO) 4.3 % (1.0-10.0); NEUTROPHILS % (AUTO) 82.3 % (45.0-75.0); PLATELET COUNT 137 K/UL (150-450); RED BLOOD COUNT 3.16 M/UL (4.20-5.40); RED CELL DISTRIBUTION WIDTH 14.9 % (11.6-14.8); WHITE BLOOD COUNT 8.8 K/UL (4.8-10.8)
[2017-11-20 05:16] LABS: INR 1.1 (0.9-1.1)
[2017-11-20 06:46] LABS: ANION GAP 9 mmol/L (5-15); BLOOD UREA NITROGEN 17 mg/dL (7-18); CALCIUM 8.7 MG/DL (8.5-10.1); CARBON DIOXIDE 23 MMOL/L (21-32); CHLORIDE 113 MMOL/L (98-107); POTASSIUM 4.1 MMOL/L (3.5-5.1); SODIUM 145 MMOL/L (136-145)
[2017-11-20 07:39] LABS: BASOPHILS % (AUTO) 0.4 % (0.0-2.0); EOSINOPHILS % (AUTO) 0.3 % (0.0-3.0); HEMATOCRIT 31.5 % (37.0-47.0); HEMOGLOBIN 10.5 G/DL (12.0-16.0); LYMPHOCYTES % (AUTO) 14.4 % (20.0-45.0); MEAN CORPUSCULAR VOLUME 87 FL (80-99); MONOCYTES % (AUTO) 4.8 % (1.0-10.0); NEUTROPHILS % (AUTO) 80.1 % (45.0-75.0); PLATELET COUNT 205 K/UL (150-450); RED BLOOD COUNT 3.62 M/UL (4.20-5.40); RED CELL DISTRIBUTION WIDTH 14.3 % (11.6-14.8)
[2017-11-20 08:00] VITALS: BP 98/57
[2017-11-20] MEDS: Pantoprazole Inj IVP SCH (08:41)
[2017-11-20] MEDS: levETIRAcetam 500mg/NS100ml 100 ML IVPB SCH ×2 (08:44→20:43)
[2017-11-20] MEDS: Heparin 5000 units/ml inj SUBQ SCH ×2 (08:44→20:44)
--- NOTE | 2017-11-20 09:22 | Urology Progress Note ---
Assessment/Plan Assessment/Plan 1. History of hydronephrosis that is chronic. 2. Renal insufficiency, acute on chronic, stabilized. 3. Hematuria. 4. Pyuria. 5. Proteinuria. 6. Urinary retention with chronic suprapubic tube. 7. Neurogenic bladder. sp tube indwelling, last exchanged 11/18 hand irrigated, patent abx as ordered monitor renal fxn need old recs indwelling ureteral stents can be addressed by pt's outside urologist once medically more stable Subjective Allergies: Coded Allergies: CEFEPIME (Unverified Allergy, Unknown, 11/09/17) Subjective all noted Objective Last 24 Hour Vital Signs Date Time Temp Pulse Resp B/P (MAP) Pulse Ox O2 Delivery O2 Flow Rate FiO2 11/20/17 08:00 Nasal Cannula 2.0 11/20/17 04:00 Nasal Cannula 2.0 11/20/17 04:00 93 11/20/17 04:00 97.0 91 20 95/61 (72) 99 97.0 11/20/17 00:00 Nasal Cannula 2.0 11/20/17 00:00 97.1 94 18 97/47 (64) 94 97.1 11/20/17 00:00 102 11/19/17 20:00 97.5 94 22 90/60 (70) 93 97.5 11/19/17 20:00 94 11/19/17 20:00 Nasal Cannula 2.0 11/19/17 16:00 91 11/19/17 16:00 Nasal Cannula 2.0 11/19/17 16:00 96.6 96 17 101/68 (79) 94 96.6 11/19/17 12:00 86 11/19/17 12:00 96.6 100 17 101/58 (72) 94 96.6 11/19/17 12:00 Nasal Cannula 2.0 Intake and Output 11/19/17 11/20/17 19:00 07:00 Intake Total 797.500 ml 550 ml Output Total 650 ml 620 ml Balance 147.500 ml -70 ml IV Total 797.500 ml 550 ml Output Urine Total 550 ml 600 ml Stool Total 100 ml 20 ml Microbiology Date/Time Source Procedure Growth Status 11/13/17 15:10 Blood Blood Culture - Final NO GROWTH AFTER 5 DAYS Complete 11/09/17 20:25 Nasal Nares MRSA Culture - Final Staphylococcus Aureus - Mrsa Complete 11/09/17 13:30 Urine,Clean Catch Urine Culture - Final Providencia Stuartii Staphylococcus Aureus - Mrsa Complete 11/10/17 20:25 Rectum - Final NO CARBAPENEM-RESISTANT ENTEROBACTERI... Complete Current Medications Medications (Trade) Dose Ordered Sig/Tay Route PRN Reason Start Time Stop Time Status Last Admin Dose Admin Acetaminophen (Tylenol) 650 mg Q6H PRN ORAL Mild Pain/Temp > 101 11/09/17 21:30 12/09/17 21:29 Dextrose/ Electrolytes 1,000 ml @ 50 mls/hr Q20H IV 11/19/17 09:00 12/19/17 08:59 11/20/17 06:19 Ertapenem 1 gm/ Sodium Chloride 55 ml @ 110 mls/hr Q24H IVPB 11/15/17 18:00 11/23/17 17:59 11/19/17 17:38 Heparin Sodium (Porcine) (Heparin 5000 units/ml) 5,000 units EVERY 12 HOURS SUBQ 11/10/17 09:00 12/10/17 08:59 11/19/17 20:29 Levetiracetam 100 ml @ 400 mls/hr Q12HR IVPB 11/09/17 22:30 12/09/17 22:29 11/20/17 08:44 Ondansetron HCl (Zofran) 4 mg Q4H PRN IVP Nausea & Vomiting 11/09/17 21:30 12/09/17 21:29 Pantoprazole (Protonix) 40 mg DAILY IVP 11/10/17 09:00 12/10/17 08:59 11/20/17 08:41 Sennosides (Senokot) 1 tab DAILY PRN ORAL Constipation 11/09/17 21:30 12/09/17 21:29 Vancomycin HCl (Vanco rx to dose) 1 ea DAILY PRN MISC Per rx protocol 11/12/17 13:30 12/12/17 13:29 Vancomycin HCl 500 mg/Dextrose 110 ml @ 110 mls/hr Q48H IVPB 11/17/17 13:00 11/23/17 23:00 11/19/17 13:13 Laboratory Tests 11/20/17 04:10: White Blood Count 8.8, Red Blood Count 3.16L, Hemoglobin 8.9L, Hematocrit 28.8L , Mean Corpuscular Volume 91, Mean Corpuscular Hemoglobin 28.2, Mean Corpuscular Hemoglobin Concent 31.0L, Red Cell Distribution Width 14.9H, Platelet Count 137#L, Mean Platelet Volume 7.6, Neutrophils (%) (Auto) 82.3H, Lymphocytes (%) (Auto) 12.9L, Monocytes (%) (Auto) 4.3, Eosinophils (%) (Auto) 0.2, Basophils (%) (Auto) 0.2, Prothrombin Time 11.2, Prothromb Time International Ratio 1.1, Activated Partial Thromboplast Time 49H 11/20/17 06:21: White Blood Count 10.0, Red Blood Count 3.62L, Hemoglobin 10.5L, Hematocrit 31.5L, Mean Corpuscular Volume 87, Mean Corpuscular Hemoglobin 29.0, Mean Corpuscular Hemoglobin Concent 33.3, Red Cell Distribution Width 14.3, Platelet Count 205, Mean Platelet Volume 8.3, Neutrophils (%) (Auto) 80.1H, Lymphocytes ( %) (Auto) 14.4L, Monocytes (%) (Auto) 4.8, Eosinophils (%) (Auto) 0.3, Basophils (%) (Auto) 0.4, Sodium Level 145, Potassium Level 4.1, Chloride Level 113H, Carbon Dioxide Level 23, Anion Gap 9, Blood Urea Nitrogen 17, Creatinine 2.0H, Estimat Glomerular Filtration Rate 26.0, Glucose Level 89#, Calcium Level 8.7 Height (Feet): 5 Height (Inches): 2.00 Weight (Pounds): 128 Objective exam stable WILBER GALINDO Nov 20, 2017 09:22
[2017-11-20] MEDS ORDERED: Sodium Chloride 500ML 500 ML IV ONE (11:15)
--- NOTE | 2017-11-20 11:29 | GI Progress Note ---
Assessment/Plan Problems: (1) Electrolyte imbalance ICD Codes: E87.8 - Other disorders of electrolyte and fluid balance, not elsewhere classified SNOMED: 852909082 (2) Encounter for PEG (percutaneous endoscopic gastrostomy) ICD Codes: Z43.1 - Encounter for attention to gastrostomy SNOMED: 586260174, 781443626 (3) Dehydration ICD Codes: E86.0 - Dehydration SNOMED: 74628202 (4) Dehydration, severe ICD Codes: E86.0 - Dehydration SNOMED: 296515157 Status: not improved, unchanged Status Narrative Discussed with Dr. Chan. Assessment/Plan POLST was signed by son 1 year ago >> He has now agreed and consented for PEG. PEG cancelled, patient hypotensive with low 02 saturation IV hydration electrolyte correction per Nephro ppi bowel regime fu labs The patient was seen and examined at bedside and all new and available data was reviewed in the patients chart. I agree with the above findings, impression and plan. (Patient seen earlier today. Signature stamp does not reflect patient encounter time.). - Laith Chan MD Subjective Subjective limited Objective Last 24 Hour Vital Signs Date Time Temp Pulse Resp B/P (MAP) Pulse Ox O2 Delivery O2 Flow Rate FiO2 11/20/17 08:00 Nasal Cannula 2.0 11/20/17 08:00 97.0 97 24 98/57 (71) 96 97.0 11/20/17 07:52 96 11/20/17 04:00 Nasal Cannula 2.0 11/20/17 04:00 93 11/20/17 04:00 97.0 91 20 95/61 (72) 99 97.0 11/20/17 00:00 Nasal Cannula 2.0 11/20/17 00:00 97.1 94 18 97/47 (64) 94 97.1 11/20/17 00:00 102 11/19/17 20:00 97.5 94 22 90/60 (70) 93 97.5 11/19/17 20:00 94 11/19/17 20:00 Nasal Cannula 2.0 11/19/17 16:00 91 11/19/17 16:00 Nasal Cannula 2.0 11/19/17 16:00 96.6 96 17 101/68 (79) 94 96.6 11/19/17 12:00 86 11/19/17 12:00 96.6 100 17 101/58 (72) 94 96.6 11/19/17 12:00 Nasal Cannula 2.0 Intake and Output 11/19/17 11/20/17 19:00 07:00 Intake Total 797.500 ml 550 ml Output Total 650 ml 620 ml Balance 147.500 ml -70 ml IV Total 797.500 ml 550 ml Output Urine Total 550 ml 600 ml Stool Total 100 ml 20 ml Laboratory Tests Test 11/20/17 04:10 11/20/17 06:21 White Blood Count 8.8 K/UL (4.8-10.8) 10.0 K/UL (4.8-10.8) Red Blood Count 3.16 M/UL (4.20-5.40) L 3.62 M/UL (4.20-5.40) L Hemoglobin 8.9 G/DL (12.0-16.0) L 10.5 G/DL (12.0-16.0) L Hematocrit 28.8 % (37.0-47.0) L 31.5 % (37.0-47.0) L Mean Corpuscular Volume 91 FL (80-99) 87 FL (80-99) Mean Corpuscular Hemoglobin 28.2 PG (27.0-31.0) 29.0 PG (27.0-31.0) Mean Corpuscular Hemoglobin Concent 31.0 G/DL (32.0-36.0) L 33.3 G/DL (32.0-36.0) Red Cell Distribution Width 14.9 % (11.6-14.8) H 14.3 % (11.6-14.8) Platelet Count 137 K/UL (150-450) #L 205 K/UL (150-450) Mean Platelet Volume 7.6 FL (6.5-10.1) 8.3 FL (6.5-10.1) Neutrophils (%) (Auto) 82.3 % (45.0-75.0) H 80.1 % (45.0-75.0) H Lymphocytes (%) (Auto) 12.9 % (20.0-45.0) L 14.4 % (20.0-45.0) L Monocytes (%) (Auto) 4.3 % (1.0-10.0) 4.8 % (1.0-10.0) Eosinophils (%) (Auto) 0.2 % (0.0-3.0) 0.3 % (0.0-3.0) Basophils (%) (Auto) 0.2 % (0.0-2.0) 0.4 % (0.0-2.0) Prothrombin Time 11.2 SEC (9.30-11.50) Prothromb Time International Ratio 1.1 (0.9-1.1) Activated Partial Thromboplast Time 49 SEC (23-33) H Sodium Level 145 MMOL/L (136-145) Potassium Level 4.1 MMOL/L (3.5-5.1) Chloride Level 113 MMOL/L (98-107) H Carbon Dioxide Level 23 MMOL/L (21-32) Anion Gap 9 mmol/L (5-15) Blood Urea Nitrogen 17 mg/dL (7-18) Creatinine 2.0 MG/DL (0.55-1.30) H Estimat Glomerular Filtration Rate 26.0 mL/min (>60) Glucose Level 89 MG/DL (74-106) # Calcium Level 8.7 MG/DL (8.5-10.1) Height (Feet): 5 Height (Inches): 2.00 Weight (Pounds): 128 General Appearance: mild distress Cardiovascular: normal rate Respiratory/Chest: no accessory muscle use Abdominal Exam: soft Olivia Lubin NP Nov 20, 2017 11:29
[2017-11-20 12:00] VITALS: BP 104/61
--- NOTE | 2017-11-20 14:08 | Pulmonology Progress Note ---
Assessment/Plan Assessment/Plan ASSESSMENT: The patient is a 52-year-old [facility] resident with history of dementia, traumatic brain injury, recurrent staghorn calculi, recurrent urinary tract infection, suprapubic catheter, prior trach, seizure disorder, nonverbal at baseline, presenting initially for desaturation, but now is stable respiratory dynamics, but concerned for sepsis and profound dehydration with acute kidney injury, anion gap, metabolic acidosis, lactic acidosis, and hemoconcentration all likely secondary to a source. PROBLEM LIST: 1. SIRS/sepsis. 2. Shock, likely septic. 3. Profound dehydration. 4. Hypernatremia, with an initial sodium of 177. 5. Anion gap metabolic acidosis, lactic acidosis. 6. Acute kidney injury, likely on chronic kidney disease. 7. Hypercalcemia. 8. Urinary tract infection. 9. History of traumatic brain injury, dementia, and seizure disorder. 10. History of prior tracheostomy, status post takedown. 11. History of staghorn renal calculi with multiple UTIs, status post suprapubic catheter placement. 12. half-way resident. 13. Nonverbal at baseline. 14. Bed-bound. 15. Full Code. TREATMENT PLAN: 1. IVF per renal 2. NGT today, PEG when stable 3. PRN O2, PRN HHN's 4. Continue ERTA and VANCO per ID 5. F/U recs 6. CT head, ammonia, ABG, neuro eval 7. Heparin subcutaneous for DVT prophylaxis. 8. The patient is a Full Code, POLST reviewed by myself, we continue to discuss goals of care further. 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 TOWER RADIO OPERATOR noted PEG cancelled, awaiting NGT, no F/C Friend @ bedside states @ [facility] patient used to speak and eat a few months ago Objective Last 24 Hour Vital Signs Date Time Temp Pulse Resp B/P (MAP) Pulse Ox O2 Delivery O2 Flow Rate FiO2 11/20/17 12:00 93 11/20/17 12:00 Nasal Cannula 4.0 11/20/17 12:00 97.0 93 22 104/61 (75) 96 97.0 11/20/17 08:00 Nasal Cannula 2.0 11/20/17 08:00 97.0 97 24 98/57 (71) 96 97.0 11/20/17 07:52 96 11/20/17 04:00 Nasal Cannula 2.0 11/20/17 04:00 93 11/20/17 04:00 97.0 91 20 95/61 (72) 99 97.0 11/20/17 00:00 Nasal Cannula 2.0 11/20/17 00:00 97.1 94 18 97/47 (64) 94 97.1 11/20/17 00:00 102 11/19/17 20:00 97.5 94 22 90/60 (70) 93 97.5 11/19/17 20:00 94 11/19/17 20:00 Nasal Cannula 2.0 11/19/17 16:00 91 11/19/17 16:00 Nasal Cannula 2.0 11/19/17 16:00 96.6 96 17 101/68 (79) 94 96.6 Intake and Output 11/19/17 11/20/17 18:59 06:59 Intake Total 797.500 ml 600 ml Output Total 650 ml 620 ml Balance 147.500 ml -20 ml IV Total 797.500 ml 600 ml Output Urine Total 550 ml 600 ml Stool Total 100 ml 20 ml General Appearance: cachetic HEENT: normocephalic, atraumatic, anicteric, mucous membranes moist Respiratory/Chest: chest wall non-tender, lungs clear, normal breath sounds, no respiratory distress Cardiovascular: normal peripheral pulses, normal rate, regular rhythm Abdomen: normal bowel sounds, soft, non tender, no organomegaly, non distended , no mass Extremities: no cyanosis, no clubbing, no edema Laboratory Tests 11/20/17 04:10: White Blood Count 8.8, Red Blood Count 3.16L, Hemoglobin 8.9L, Hematocrit 28.8L , Mean Corpuscular Volume 91, Mean Corpuscular Hemoglobin 28.2, Mean Corpuscular Hemoglobin Concent 31.0L, Red Cell Distribution Width 14.9H, Platelet Count 137#L, Mean Platelet Volume 7.6, Neutrophils (%) (Auto) 82.3H, Lymphocytes (%) (Auto) 12.9L, Monocytes (%) (Auto) 4.3, Eosinophils (%) (Auto) 0.2, Basophils (%) (Auto) 0.2, Prothrombin Time 11.2, Prothromb Time International Ratio 1.1, Activated Partial Thromboplast Time 49H 11/20/17 06:21: White Blood Count 10.0, Red Blood Count 3.62L, Hemoglobin 10.5L, Hematocrit 31.5L, Mean Corpuscular Volume 87, Mean Corpuscular Hemoglobin 29.0, Mean Corpuscular Hemoglobin Concent 33.3, Red Cell Distribution Width 14.3, Platelet Count 205, Mean Platelet Volume 8.3, Neutrophils (%) (Auto) 80.1H, Lymphocytes ( %) (Auto) 14.4L, Monocytes (%) (Auto) 4.8, Eosinophils (%) (Auto) 0.3, Basophils (%) (Auto) 0.4, Sodium Level 145, Potassium Level 4.1, Chloride Level 113H, Carbon Dioxide Level 23, Anion Gap 9, Blood Urea Nitrogen 17, Creatinine 2.0H, Estimat Glomerular Filtration Rate 26.0, Glucose Level 89#, Calcium Level 8.7 Current Medications Medications (Trade) Dose Ordered Sig/Tay Route PRN Reason Start Time Stop Time Status Last Admin Dose Admin Acetaminophen (Tylenol) 650 mg Q6H PRN ORAL Mild Pain/Temp > 101 11/09/17 21:30 12/09/17 21:29 Dextrose/ Electrolytes 1,000 ml @ 50 mls/hr Q20H IV 11/19/17 09:00 12/19/17 08:59 11/20/17 06:19 Ertapenem 1 gm/ Sodium Chloride 55 ml @ 110 mls/hr Q24H IVPB 11/15/17 18:00 11/23/17 17:59 11/19/17 17:38 Heparin Sodium (Porcine) (Heparin 5000 units/ml) 5,000 units EVERY 12 HOURS SUBQ 11/10/17 09:00 12/10/17 08:59 11/19/17 20:29 Levetiracetam 100 ml @ 400 mls/hr Q12HR IVPB 11/09/17 22:30 12/09/17 22:29 11/20/17 08:44 Ondansetron HCl (Zofran) 4 mg Q4H PRN IVP Nausea & Vomiting 11/09/17 21:30 12/09/17 21:29 Pantoprazole (Protonix) 40 mg DAILY IVP 11/10/17 09:00 12/10/17 08:59 11/20/17 08:41 Sennosides (Senokot) 1 tab DAILY PRN ORAL Constipation 11/09/17 21:30 12/09/17 21:29 Vancomycin HCl (Vanco rx to dose) 1 ea DAILY PRN MISC Per rx protocol 11/12/17 13:30 12/12/17 13:29 Vancomycin HCl 500 mg/Dextrose 110 ml @ 110 mls/hr Q48H IVPB 11/17/17 13:00 11/23/17 23:00 11/19/17 13:13 Jose Montalvo MD Nov 20, 2017 14:08
--- NOTE | 2017-11-20 14:11 | Diagnostic Imaging Report ---
Indication: Status post nasogastric tube placement Technique: Supine view of the upper abdomen Comparison: Family Living Educator image from CT scan dated 11/09/2017 Findings: There is a nasogastric tube, tip projected level gastric fundus, proximal port beyond the expected level of the gastroesophageal junction. Again demonstrated is ventriculoperitoneal shunt tubing and bilateral nephroureteral stents. Bowel gas pattern is unremarkable. There may be pleural and/or parenchymal disease at the right lung base Impression: Satisfactory nasogastric intubation Other findings as noted
--- NOTE | 2017-11-20 14:33 | Nephrology Progress Note ---
Assessment/Plan Problem List: (1) Acute renal failure (ARF) (2) Dehydration with hypernatremia (3) Severe sepsis (4) Shock (5) Dehydration, severe (6) Hypotension Assessment Acute kidney injury, likely on chronic kidney disease. Cr lowering Hypernatremia, with an initial sodium of 177. Na lowering Profound dehydration. improving Shock, likely septic. Hypercalcemia. on presentation Urinary tract infection. Has supraPubic cath History of traumatic brain injury, dementia, and seizure disorder. History of staghorn renal calculi with multiple UTIs, status post Plan NGT and Midodrine- K supplements as needed D5W Albumin bolus PRN KCL, Mag , Phos as needed Antibiotics Anemia yarbrough Monitor renal parameters- Avoid Nephrotoxics Due PEG- Consent taken when stable Subjective ROS Limited/Unobtainable: Yes Objective Objective Last 24 Hour Vital Signs Date Time Temp Pulse Resp B/P (MAP) Pulse Ox O2 Delivery O2 Flow Rate FiO2 11/20/17 12:00 93 11/20/17 12:00 Nasal Cannula 4.0 11/20/17 12:00 97.0 93 22 104/61 (75) 96 97.0 11/20/17 08:00 Nasal Cannula 2.0 11/20/17 08:00 97.0 97 24 98/57 (71) 96 97.0 11/20/17 07:52 96 11/20/17 04:00 Nasal Cannula 2.0 11/20/17 04:00 93 11/20/17 04:00 97.0 91 20 95/61 (72) 99 97.0 11/20/17 00:00 Nasal Cannula 2.0 11/20/17 00:00 97.1 94 18 97/47 (64) 94 97.1 11/20/17 00:00 102 11/19/17 20:00 97.5 94 22 90/60 (70) 93 97.5 11/19/17 20:00 94 11/19/17 20:00 Nasal Cannula 2.0 11/19/17 16:00 91 11/19/17 16:00 Nasal Cannula 2.0 11/19/17 16:00 96.6 96 17 101/68 (79) 94 96.6 Intake and Output 11/19/17 11/20/17 19:00 07:00 Intake Total 797.500 ml 584.166 ml Output Total 650 ml 620 ml Balance 147.500 ml -35.834 ml IV Total 797.500 ml 584.166 ml Output Urine Total 550 ml 600 ml Stool Total 100 ml 20 ml Laboratory Tests 11/20/17 04:10: White Blood Count 8.8, Red Blood Count 3.16L, Hemoglobin 8.9L, Hematocrit 28.8L , Mean Corpuscular Volume 91, Mean Corpuscular Hemoglobin 28.2, Mean Corpuscular Hemoglobin Concent 31.0L, Red Cell Distribution Width 14.9H, Platelet Count 137#L, Mean Platelet Volume 7.6, Neutrophils (%) (Auto) 82.3H, Lymphocytes (%) (Auto) 12.9L, Monocytes (%) (Auto) 4.3, Eosinophils (%) (Auto) 0.2, Basophils (%) (Auto) 0.2, Prothrombin Time 11.2, Prothromb Time International Ratio 1.1, Activated Partial Thromboplast Time 49H 11/20/17 06:21: White Blood Count 10.0, Red Blood Count 3.62L, Hemoglobin 10.5L, Hematocrit 31.5L, Mean Corpuscular Volume 87, Mean Corpuscular Hemoglobin 29.0, Mean Corpuscular Hemoglobin Concent 33.3, Red Cell Distribution Width 14.3, Platelet Count 205, Mean Platelet Volume 8.3, Neutrophils (%) (Auto) 80.1H, Lymphocytes ( %) (Auto) 14.4L, Monocytes (%) (Auto) 4.8, Eosinophils (%) (Auto) 0.3, Basophils (%) (Auto) 0.4, Sodium Level 145, Potassium Level 4.1, Chloride Level 113H, Carbon Dioxide Level 23, Anion Gap 9, Blood Urea Nitrogen 17, Creatinine 2.0H, Estimat Glomerular Filtration Rate 26.0, Glucose Level 89#, Calcium Level 8.7 Height (Feet): 5 Height (Inches): 2.00 Weight (Pounds): 128 General Appearance: no apparent distress, lethargic Cardiovascular: normal rate Respiratory/Chest: decreased breath sounds Abdomen: distended Objective no change Parrish Luo MD Nov 20, 2017 14:33
--- NOTE | 2017-11-20 15:05 | Diagnostic Imaging Report ---
Indications: Altered mental status Technique: Spiral acquisitions obtained through the brain. Angled axial and coronal 5 x 5 mm slices were reconstructed. Total dose length product 1376.09 mGycm. CTDI vol(s) 70.38 mGy. Dose reduction achieved using automated exposure control Comparison: 03/08/2012 Findings: Again demonstrated is a large right convexity craniectomy defect and extensive underlying temporal and parietal encephalomalacia and volume loss presumably related to prior surgical resection. There is also some encephalomalacia of the right cerebellar hemisphere. There is a left frontal craniectomy defect with overlying mesh again demonstrated. No significant underlying parenchymal abnormality. There is a right-sided transparietal ventriculostomy catheter, with the tip in the frontal horn of the left lateral ventricle. The lateral ventricles are completely decompressed and the third ventricle is also decompressed. There is mild dilatation, presumably on an ex vacuo basis, of the fourth ventricle. No acute intracranial hemorrhage nor edema, mass effect, nor midline shift. In the areas of normal parenchyma, trent-white differentiation is normal. Visualized orbits and sinuses are unremarkable. Mastoids are clear. When compared to prior exam, right supraorbital scalp soft tissue swelling is no longer evident Impression: Extensive postsurgical changes, as detailed above, unchanged from prior study of 03/08/2012 Negative for acute intracranial bleed or mass effect Ventriculoperitoneal shunt, presumably working well as the ventricular system is decompressed The CT scanner at [facility] is accredited by the [employer] and the scans are performed using protocols designed to limit radiation exposure to as low as reasonably achievable to attain images of sufficient resolution adequate for diagnostic evaluation.
[2017-11-20 16:00] VITALS: BP 99/61
[2017-11-20] MEDS: Midodrine 10mg tab ORAL SCH (18:13)
[2017-11-20] MEDS: Ertapenem 1 GM in NS 55 ML IVPB SCH (18:15)
--- NOTE | 2017-11-20 19:31 | Consultation ---
Consult Note Consult Note NEUROLOGY CONSULTATION: Full note dictated #[id number] 52 y/o, HF of ?H who has a PH of severe TBI with a right craniectomy and significant right brain encephalomalacia, a seizure disorder, left plegia, respiratory failure, UTIs, and multiple episodes of sepsis. She was hospitalized for a UTI and sepsis on 11/09/17. Her MS improved but today she has been less responsive. At this time she is unresponsive. ON EXAM: Right craniectomy. Unable to arouse. No response to visual threat. Corneal decreased on left. Left UE>LE contractures and plegia. Minimal movement of right on DP Right brisker than left DTRs Extensor plantars bilaterally. IMPRESSION: Worsening of toxic metabolic encephalopathy. Less likely to have subclinical ictal phenomena. REC: Continue present Tx. Continue antibiotics. Continue to correct toxic/metabolic imbalances. EEG Roseann Ramos M.D., M.S.P.H. ROSEANN RAMOS Nov 20, 2017 19:31
[2017-11-20 19:34] LABS: APPEARANCE,URINE CLOUDY; BILIRUBIN, URINE NEGATIVE (NEGATIVE); COLOR,URINE PALE YELLOW; GLUCOSE, URINE (UA) NEGATIVE (NEGATIVE); KETONES,URINE NEGATIVE (NEGATIVE); LEUKOCYTE ESTERASE ,URINE 3+ (NEGATIVE); NITRITE,URINE NEGATIVE (NEGATIVE); PH,URINE 6 (4.5-8.0); PROTEIN,URINE 2+ (NEGATIVE); UROBILINOGEN,URINE NORMAL MG/DL (0.0-1.0)
[2017-11-20 20:00] VITALS: BP 118/72
--- NOTE | 2017-11-20 23:00 | Consultation ---
DATE OF CONSULTATION: 11/20/2017 NEUROLOGY CONSULTATION CONSULTING PHYSICIAN: Surya Ramos M.D. REQUESTING PHYSICIAN: Jose Montalvo M.D. HISTORY: Ms. 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 She also has a history of a seizure disorder, the exact type of seizure disorder is unknown. 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 She was hospitalized for urinary tract infection and sepsis on 11/09/2017. Her mental state had improved and she was giving some yes/no answers by nodding. Today, there was a sudden decline in her mental state and she became much less responsive. At this point in time, she is completely unresponsive. This consultation was requested to evaluate the patient from a neurological point of view for her altered mental state. Ms. Guaman herself was unable to give me any history at this point in time. PAST MEDICAL HISTORY: Significant for severe head trauma with a right-sided craniectomy and significant right brain encephalomalacia, seizure disorder, left plegia, respiratory failure, urinary tract infections and multiple episodes of sepsis. FAMILY HISTORY: Unavailable. PERSONAL HISTORY: Home: She lives in a longterm. Work: She is unemployed. Habits: None at this point in time. PRESENT MEDICATIONS: midodrine, vancomycin, ertapenem, heparin for DVT prophylaxis, Protonix, Keppra 500 mg q.12 hours, Senokot, Tylenol, and Zofran. PHYSICAL EXAMINATION: GENERAL: She is a well-developed and well-nourished lady, lying in bed, in no acute distress. VITAL SIGNS: Pulse 95 per minute, blood pressure 99/61 mmHg, respirations 20 per minute, and temperature 97 degrees Fahrenheit. HEAD: Normocephalic with right craniectomy defect. EENT: Examination benign. NECK: No neck rigidity was observed. NEUROLOGICAL EXAMINATION: MENTAL STATUS EXAMINATION: She could not be aroused even on deep painful stimuli. Further mental status testing was impossible. SPEECH: Could not be tested. LANGUAGE: Could not be tested. CRANIAL NERVE EXAMINATION: II: She did not blink to threat. III, IV & : External ocular movements were present on oculocephalic maneuvers. The pupils were 3 mm in diameter, equal, round, regular, and reactive sluggishly to light. V & VII: Corneal reflexes were present, but brisker on the right than on the left. VIII: She did not respond to sounds and had no nystagmus. IX & X: The gag reflex was absent. IX: Sternocleidomastoids and trapezii did function minimally on applying deep painful stimuli. XII: Tongue in the midline. MOTOR SYSTEM: The tone was increased in both lower extremities with spasticity. The tone was relatively normal in the right upper extremity but was diminished in the left upper extremity. Examination of muscle mass revealed wasting of the left upper and lower extremities and in addition a flexion contracture at the elbow. The examination of power was impossible to perform as she did not move her left side at all and moved her right side minimally in a nonpurposeful manner. SENSORY EXAMINATION: She responded to deep pain on the right side but not the left. REFLEXES: 2+ on the left and 2++ on the right at the biceps, triceps, brachioradialis, and knees, 0 at both ankles. The plantar responses were extensor bilaterally. COORDINATION, STANCE & GAIT: Could not be tested. DIAGNOSTIC IMPRESSION: 1. Ms. Yumiko Guaman is a 52-year-old, lady, of unknown handedness, who does have a past history of severe brain trauma with a right-sided craniectomy and significant right brain encephalomalacia. She also has a history of a seizure disorder that is undefined. She has a left plegia and prior episodes of respiratory failure, urinary tract infections, and multiple episodes of sepsis. She was hospitalized on 11/09/2017 for a urinary tract infection associated with sepsis but her mental state improved with treatment of those conditions. Today there was a sudden decline in her level of arousal. At this point in time, she is unresponsive. 2. On neurological examination at this time, she does demonstrate a right-sided craniectomy. She is unable to arouse even on applying deep painful stimuli. She does not respond to visual threat. The corneal reflexes are diminished on the left side compared to the right. She has left upper extremity greater than lower extremity contractures and left-sided plegia and significant right-sided hemiparesis. She only responds to deep pain on the right side with minimal withdrawal but not on the left side. The deep tendon reflexes are brisker on the right side compared to the left and she has extensor plantar responses bilaterally. 3. CT scan of the brain without contrast performed on 11/20/2017 revealed a large right convexity craniectomy and extensive underlying temporal and parietal encephalomalacia. There was also encephalomalacia of the right cerebellum. There was a left frontal craniotomy defect with overlying mesh. There was no significant underlying parenchymal abnormality on the left side. She also had right-sided ventriculostomy. No acute pathology was noted. 4. Laboratory data revealed that she was anemic with a hemoglobin of 10.5 G. Her WBC count was 10,000 but she had a left-sided shift with 80% polymorphonuclear leukocytes. The chemistry panel revealed a creatinine elevated to 2.0. The ammonia was minimally elevated at 34. The Vitamin B12 level and TSH were normal. The Folate was minimally low at 3.9. The Urinalysis that was done on 11/09/2017 revealed 3+ leukocyte esterase, 40-60 RBCs and 40-60 WBCs per high-power field. Her latest arterial blood gas revealed a pH of 7.35, pCO2 of 42, and pO2 of 60. 5. The patient's history, neurological examination, and laboratory data and imaging studies are most compatible with worsening of a toxic metabolic encephalopathy, a less likely etiology would be subclinical ictal phenomena. RECOMMENDATIONS: 1. I agree with management thus far. 2. Would continue present therapeutic management. 3. Would continue aggressive antibiotic treatment. 4. Continue to correct the patient's toxic metabolic imbalances. 5. An EEG will be ordered to exclude ongoing ictal or interictal phenomena. 6. The patient will be observed closely and depending on how she fares over the next day or so, further recommendations will be given. Thank you for entrusting me with the care of Ms. Guaman. I shall follow her with you. Surya Ramos M.D., M.S.P.H. DR: Robert JOB#: [id number]
[2017-11-21] VITALS: BP 118/70
--- NOTE | 2017-11-21 00:01 | Infectious Diseases Prog Note ---
Assessment/Plan Problems: (1) Altered mental state Assessment & Plan: multifactorial, continue aggressive hydration, monitor Ammonia , neurology is following, head CT no acute pathology (2) Acute pyelonephritis Assessment & Plan: with MDR Providencia stuartii, and MRSA , suspect due to right ureter stent obstruction, continue vancomycin to cover for MRSA , and ertapenem for MDR Providencia stuartii for two weeks total , urology eval is in progress , may need stent removal . EOT 11/23/17 (3) Hydronephrosis of right kidney Assessment & Plan: suspect ureter stent malfunction , urology eval is in progress, may need stent removal (4) Severe sepsis Assessment & Plan: with staph simulans , most likely contamination , grew from one set only. already on vancomycin for two weeks for MRSA pyelonephritis, repeated blood culture is negative (5) Renal failure Assessment & Plan: continue aggressive hydration , monitor renal function, avoid nephrotoxics (6) Left shoulder pain Assessment & Plan: due to chronic rotator cuff syndrom, as evident by X ray , folllow up with ortho (7) Colonization with VRE (vancomycin-resistant enterococcus) Assessment & Plan: keep in contact isolation (8) Hypotension Assessment & Plan: doubt due to sepsis , suspect dehydration . cortisol level looks ok . repeated blood culture is negative (9) Diarrhea Assessment & Plan: await stool for C diff , continue aggressive hydration Subjective ROS Limited/Unobtainable: Yes Allergies: Coded Allergies: CEFEPIME (Unverified Allergy, Unknown, 11/09/17) Subjective she was lying in bed, altered, unresponsive to verbal commands , a febrile, and hypotensive Objective Vital Signs Last 24 Hour Vital Signs Date Time Temp Pulse Resp B/P (MAP) Pulse Ox O2 Delivery O2 Flow Rate FiO2 11/20/17 20:00 96.3 107 20 118/72 (87) 94 96.3 11/20/17 20:00 Nasal Cannula 4.0 11/20/17 19:50 110 11/20/17 16:00 97.0 95 20 99/61 (74) 96 97.0 11/20/17 16:00 89 11/20/17 16:00 Nasal Cannula 4.0 11/20/17 12:00 93 11/20/17 12:00 Nasal Cannula 4.0 11/20/17 12:00 97.0 93 22 104/61 (75) 96 97.0 11/20/17 08:00 Nasal Cannula 2.0 11/20/17 08:00 97.0 97 24 98/57 (71) 96 97.0 11/20/17 07:52 96 11/20/17 04:00 Nasal Cannula 2.0 11/20/17 04:00 93 11/20/17 04:00 97.0 91 20 95/61 (72) 99 97.0 11/20/17 00:00 Nasal Cannula 2.0 11/20/17 00:00 97.1 94 18 97/47 (64) 94 97.1 11/20/17 00:00 102 Height (Feet): 5 Height (Inches): 2.00 Weight (Pounds): 128 General Appearance: WD/WN, no acute distress, other - altered HEENT: normocephalic, atraumatic, anicteric, mucous membranes moist, PERRL Respiratory/Chest: chest wall non-tender, no respiratory distress, no accessory muscle use, decreased breath sounds, crackles/rales Cardiovascular: normal peripheral pulses, normal rate, regular rhythm, no gallop/murmur, no JVD Abdomen: normal bowel sounds, soft, non tender, no organomegaly, non distended , no mass, no scars Extremities: no cyanosis, no clubbing Skin: no rash, no lesions, no ulcers Neurologic/Psychiatric: unresponsiveness Lymphatic: no neck adenopathy, no groin adenopathy Laboratory Tests Test 11/20/17 04:10 11/20/17 06:21 11/20/17 15:05 11/20/17 15:10 White Blood Count 8.8 K/UL (4.8-10.8) 10.0 K/UL (4.8-10.8) Red Blood Count 3.16 M/UL (4.20-5.40) L 3.62 M/UL (4.20-5.40) L Hemoglobin 8.9 G/DL (12.0-16.0) L 10.5 G/DL (12.0-16.0) L Hematocrit 28.8 % (37.0-47.0) L 31.5 % (37.0-47.0) L Mean Corpuscular Volume 91 FL (80-99) 87 FL (80-99) Mean Corpuscular Hemoglobin 28.2 PG (27.0-31.0) 29.0 PG (27.0-31.0) Mean Corpuscular Hemoglobin Concent 31.0 G/DL (32.0-36.0) L 33.3 G/DL (32.0-36.0) Red Cell Distribution Width 14.9 % (11.6-14.8) H 14.3 % (11.6-14.8) Platelet Count 137 K/UL (150-450) #L 205 K/UL (150-450) Mean Platelet Volume 7.6 FL (6.5-10.1) 8.3 FL (6.5-10.1) Neutrophils (%) (Auto) 82.3 % (45.0-75.0) H 80.1 % (45.0-75.0) H Lymphocytes (%) (Auto) 12.9 % (20.0-45.0) L 14.4 % (20.0-45.0) L Monocytes (%) (Auto) 4.3 % (1.0-10.0) 4.8 % (1.0-10.0) Eosinophils (%) (Auto) 0.2 % (0.0-3.0) 0.3 % (0.0-3.0) Basophils (%) (Auto) 0.2 % (0.0-2.0) 0.4 % (0.0-2.0) Prothrombin Time 11.2 SEC (9.30-11.50) Prothromb Time International Ratio 1.1 (0.9-1.1) Activated Partial Thromboplast Time 49 SEC (23-33) H Sodium Level 145 MMOL/L (136-145) Potassium Level 4.1 MMOL/L (3.5-5.1) Chloride Level 113 MMOL/L (98-107) H Carbon Dioxide Level 23 MMOL/L (21-32) Anion Gap 9 mmol/L (5-15) Blood Urea Nitrogen 17 mg/dL (7-18) Creatinine 2.0 MG/DL (0.55-1.30) H Estimat Glomerular Filtration Rate 26.0 mL/min (>60) Glucose Level 89 MG/DL (74-106) # Calcium Level 8.7 MG/DL (8.5-10.1) Arterial Blood pH 7.354 (7.350-7.450) Arterial Blood Partial Pressure CO2 41.6 mmHg (35.0-45.0) Arterial Blood Partial Pressure O2 59.9 mmHg (75.0-100.0) L Arterial Blood HCO3 22.7 mmol/L (22.0-26.0) Arterial Blood Oxygen Saturation 90.4 % (92.0-98.0) L Arterial Blood Base Excess -2.7 Yonathan Test Positive Lactic Acid Level 1.10 mmol/L (0.4-2.0) Ammonia 34 umol/L (11-32) H Vitamin B12 Level 1444 PG/ML (193-986) H Folate 3.9 NG/ML (8.6-58.9) L Thyroid Stimulating Hormone (TSH) 1.346 uiU/mL (0.358-3.740) Rapid Plasma Reagin Pending Test 11/20/17 19:14 Urine Color Pale yellow Urine Appearance Cloudy Urine pH 6 (4.5-8.0) Urine Specific [place] 1.010 (1.005-1.035) Urine Protein 2+ (NEGATIVE) H Urine Glucose (UA) Negative (NEGATIVE) Urine Ketones Negative (NEGATIVE) Urine Blood 5+ (NEGATIVE) H Urine Nitrite Negative (NEGATIVE) Urine Bilirubin Negative (NEGATIVE) Urine Urobilinogen Normal MG/DL (0.0-1.0) Urine Leukocyte Esterase 3+ (NEGATIVE) H Urine RBC 5-10 /HPF (0 - 2) H Urine WBC Tntc /HPF (0 - 2) H Urine Squamous Epithelial Cells Few /LPF (NONE/OCC) Urine Bacteria Moderate /HPF (NONE) H Urine Yeast Many /HPF (NONE) H Current Medications Medications (Trade) Dose Ordered Sig/Tay Route PRN Reason Start Time Stop Time Status Last Admin Dose Admin Acetaminophen (Tylenol) 650 mg Q6H PRN ORAL Mild Pain/Temp > 101 11/09/17 21:30 12/09/17 21:29 Dextrose/ Electrolytes 1,000 ml @ 50 mls/hr Q20H IV 11/19/17 09:00 12/19/17 08:59 11/20/17 06:19 Ertapenem 1 gm/ Sodium Chloride 55 ml @ 110 mls/hr Q24H IVPB 11/15/17 18:00 11/23/17 17:59 11/20/17 18:15 Folic Acid (Folate) 1 mg DAILY NG 11/20/17 21:00 12/20/17 20:59 11/20/17 20:43 Heparin Sodium (Porcine) (Heparin 5000 units/ml) 5,000 units EVERY 12 HOURS SUBQ 11/10/17 09:00 12/10/17 08:59 11/20/17 20:44 Levetiracetam 100 ml @ 400 mls/hr Q12HR IVPB 11/09/17 22:30 12/09/17 22:29 11/20/17 20:43 Midodrine (Pro-Amatine) 10 mg THREE TIMES A DAY ORAL 11/20/17 18:00 12/20/17 17:59 11/20/17 18:13 Ondansetron HCl (Zofran) 4 mg Q4H PRN IVP Nausea & Vomiting 11/09/17 21:30 12/09/17 21:29 Pantoprazole (Protonix) 40 mg DAILY IVP 11/10/17 09:00 12/10/17 08:59 11/20/17 08:41 Sennosides (Senokot) 1 tab DAILY PRN ORAL Constipation 11/09/17 21:30 12/09/17 21:29 Vancomycin HCl (Vanco rx to dose) 1 ea DAILY PRN MISC Per rx protocol 11/12/17 13:30 12/12/17 13:29 Vancomycin HCl 500 mg/Dextrose 110 ml @ 110 mls/hr Q48H IVPB 11/17/17 13:00 11/23/17 23:00 11/19/17 13:13 Kortney Quiñones M.D. Nov 21, 2017 00:01
[2017-11-21 04:00] VITALS: BP 82/52
[2017-11-21 06:20] LABS: BASOPHILS % (AUTO) 0.3 % (0.0-2.0); EOSINOPHILS % (AUTO) 0.1 % (0.0-3.0); HEMATOCRIT 29.5 % (37.0-47.0); HEMOGLOBIN 9.5 G/DL (12.0-16.0); LYMPHOCYTES % (AUTO) 11.8 % (20.0-45.0); MEAN CORPUSCULAR VOLUME 88 FL (80-99); MONOCYTES % (AUTO) 3.3 % (1.0-10.0); NEUTROPHILS % (AUTO) 84.4 % (45.0-75.0); PLATELET COUNT 219 K/UL (150-450); RED BLOOD COUNT 3.35 M/UL (4.20-5.40); RED CELL DISTRIBUTION WIDTH 14.4 % (11.6-14.8); WHITE BLOOD COUNT 12.4 K/UL (4.8-10.8)
[2017-11-21 07:19] LABS: ALANINE AMINOTRANSFERASE 13 U/L (12-78); ALBUMIN 1.9 G/DL (3.4-5.0); ALBUMIN/GLOBULIN RATIO 0.4 (1.0-2.7); ALKALINE PHOSPHATASE 141 U/L (46-116); ANION GAP 11 mmol/L (5-15); ASPARTATE AMINO TRANSFERASE 19 U/L (15-37); BILIRUBIN,TOTAL 0.2 MG/DL (0.2-1.0); BLOOD UREA NITROGEN 21 mg/dL (7-18); CALCIUM 9.1 MG/DL (8.5-10.1); CARBON DIOXIDE 24 MMOL/L (21-32); CHLORIDE 119 MMOL/L (98-107); CREATININE 2.1 MG/DL (0.55-1.30); PHOSPHORUS 2.8 MG/DL (2.5-4.9); POTASSIUM 3.4 MMOL/L (3.5-5.1); SODIUM 154 MMOL/L (136-145)
[2017-11-21 08:11] VITALS: BP 93/57
[2017-11-21] MEDS: Midodrine 10mg tab ORAL SCH ×3 (08:12→18:15)
[2017-11-21] MEDS: Pantoprazole Inj IVP SCH (08:12)
[2017-11-21] MEDS: Heparin 5000 units/ml inj SUBQ SCH ×2 (08:13→20:36)
[2017-11-21] MEDS: levETIRAcetam 500mg/NS100ml 100 ML IVPB SCH ×2 (09:49→20:35)
[2017-11-21 12:00] VITALS: BP 106/62
--- NOTE | 2017-11-21 12:51 | GI Progress Note ---
Assessment/Plan Problems: (1) Electrolyte imbalance ICD Codes: E87.8 - Other disorders of electrolyte and fluid balance, not elsewhere classified SNOMED: 976494469 (2) Encounter for PEG (percutaneous endoscopic gastrostomy) ICD Codes: Z43.1 - Encounter for attention to gastrostomy SNOMED: 265337047, 793235676 (3) Dehydration ICD Codes: E86.0 - Dehydration SNOMED: 13319723 (4) Dehydration, severe ICD Codes: E86.0 - Dehydration SNOMED: 485310807 Status: stable Status Narrative Discussed with Dr. Chan. 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 I agree with the above findings, impression and plan. (Patient seen earlier today. Signature stamp does not reflect patient encounter time.). - Laith Chan MD Subjective Subjective limited Objective Last 24 Hour Vital Signs Date Time Temp Pulse Resp B/P (MAP) Pulse Ox O2 Delivery O2 Flow Rate FiO2 11/21/17 12:00 Nasal Cannula 4.0 11/21/17 12:00 84 11/21/17 12:00 97.8 84 22 106/62 (77) 95 97.8 11/21/17 08:11 97.5 90 26 93/57 (69) 96 97.5 11/21/17 08:00 94 11/21/17 08:00 Nasal Cannula 4.0 11/21/17 04:01 83 11/21/17 04:00 Nasal Cannula 4.0 11/21/17 04:00 96.6 78 26 82/52 (62) 96 96.6 11/21/17 00:00 96.9 100 24 118/70 (86) 96 96.9 11/21/17 00:00 Nasal Cannula 4.0 11/20/17 23:30 100 11/20/17 20:00 96 Nasal Cannula 4.0 36 11/20/17 20:00 Nasal Cannula 4.0 36 11/20/17 20:00 96.3 107 20 118/72 (87) 94 96.3 11/20/17 20:00 Nasal Cannula 4.0 11/20/17 19:50 110 11/20/17 16:00 97.0 95 20 99/61 (74) 96 97.0 11/20/17 16:00 89 11/20/17 16:00 Nasal Cannula 4.0 Intake and Output 11/20/17 11/21/17 19:00 07:00 Intake Total 1610 ml 1090 ml Output Total 550 ml 400 ml Balance 1060 ml 690 ml Free Water 180 ml IV Total 1555 ml 650 ml Tube Feeding 25 ml 200 ml Other 30 ml 60 ml Output Urine Total 550 ml 400 ml Laboratory Tests Test 11/20/17 15:05 11/20/17 15:10 11/20/17 19:14 11/21/17 06:04 Arterial Blood pH 7.354 (7.350-7.450) Arterial Blood Partial Pressure CO2 41.6 mmHg (35.0-45.0) Arterial Blood Partial Pressure O2 59.9 mmHg (75.0-100.0) L Arterial Blood HCO3 22.7 mmol/L (22.0-26.0) Arterial Blood Oxygen Saturation 90.4 % (92.0-98.0) L Arterial Blood Base Excess -2.7 Yonathan Test Positive Lactic Acid Level 1.10 mmol/L (0.4-2.0) Ammonia 34 umol/L (11-32) H Vitamin B12 Level 1444 PG/ML (193-986) H Folate 3.9 NG/ML (8.6-58.9) L Thyroid Stimulating Hormone (TSH) 1.346 uiU/mL (0.358-3.740) Rapid Plasma Reagin Non reactive (Non Reactive) Urine Color Pale yellow Urine Appearance Cloudy Urine pH 6 (4.5-8.0) Urine Specific [place] 1.010 (1.005-1.035) Urine Protein 2+ (NEGATIVE) H Urine Glucose (UA) Negative (NEGATIVE) Urine Ketones Negative (NEGATIVE) Urine Blood 5+ (NEGATIVE) H Urine Nitrite Negative (NEGATIVE) Urine Bilirubin Negative (NEGATIVE) Urine Urobilinogen Normal MG/DL (0.0-1.0) Urine Leukocyte Esterase 3+ (NEGATIVE) H Urine RBC 5-10 /HPF (0 - 2) H Urine WBC Tntc /HPF (0 - 2) H Urine Squamous Epithelial Cells Few /LPF (NONE/OCC) Urine Bacteria Moderate /HPF (NONE) H Urine Yeast Many /HPF (NONE) H White Blood Count 12.4 K/UL (4.8-10.8) H Red Blood Count 3.35 M/UL (4.20-5.40) L Hemoglobin 9.5 G/DL (12.0-16.0) L Hematocrit 29.5 % (37.0-47.0) L Mean Corpuscular Volume 88 FL (80-99) Mean Corpuscular Hemoglobin 28.4 PG (27.0-31.0) Mean Corpuscular Hemoglobin Concent 32.3 G/DL (32.0-36.0) Red Cell Distribution Width 14.4 % (11.6-14.8) Platelet Count 219 K/UL (150-450) Mean Platelet Volume 7.1 FL (6.5-10.1) Neutrophils (%) (Auto) 84.4 % (45.0-75.0) H Lymphocytes (%) (Auto) 11.8 % (20.0-45.0) L Monocytes (%) (Auto) 3.3 % (1.0-10.0) Eosinophils (%) (Auto) 0.1 % (0.0-3.0) Basophils (%) (Auto) 0.3 % (0.0-2.0) Prothrombin Time 10.9 SEC (9.30-11.50) Prothromb Time International Ratio 1.0 (0.9-1.1) Activated Partial Thromboplast Time 55 SEC (23-33) H Sodium Level 154 MMOL/L (136-145) H Potassium Level 3.4 MMOL/L (3.5-5.1) L Chloride Level 119 MMOL/L (98-107) H Carbon Dioxide Level 24 MMOL/L (21-32) Anion Gap 11 mmol/L (5-15) Blood Urea Nitrogen 21 mg/dL (7-18) H Creatinine 2.1 MG/DL (0.55-1.30) H Estimat Glomerular Filtration Rate 24.6 mL/min (>60) Glucose Level 109 MG/DL (74-106) H Calcium Level 9.1 MG/DL (8.5-10.1) Phosphorus Level 2.8 MG/DL (2.5-4.9) Magnesium Level 2.1 MG/DL (1.8-2.4) Total Bilirubin 0.2 MG/DL (0.2-1.0) Aspartate Amino Transf (AST/SGOT) 19 U/L (15-37) Alanine Aminotransferase (ALT/SGPT) 13 U/L (12-78) Alkaline Phosphatase 141 U/L (46-116) H C-Reactive Protein, Quantitative 10.1 mg/dL (0.00-0.90) H Pro-B-Type Natriuretic Peptide 4782 pg/mL (0-125) H Total Protein 7.0 G/DL (6.4-8.2) Albumin 1.9 G/DL (3.4-5.0) L Globulin 5.1 g/dL Albumin/Globulin Ratio 0.4 (1.0-2.7) L Microbiology Date/Time Source Procedure Growth Status 11/20/17 19:14 Urine,Clean Catch Urine Culture - Preliminary NO GROWTH Resulted Height (Feet): 5 Height (Inches): 2.00 Weight (Pounds): 128 General Appearance: no apparent distress, lethargic Cardiovascular: normal rate Respiratory/Chest: normal breath sounds, no respiratory distress, other - NC Abdominal Exam: normal bowel sounds, non tender, soft, other - NGT Extremities: non-tender Olivia Lubin NP Nov 21, 2017 12:51
[2017-11-21] MEDS: Vancomycin 500mg/D5W 110ml IVPB SCH ×2 (13:10)
--- NOTE | 2017-11-21 13:41 | Nephrology Progress Note ---
Assessment/Plan Problem List: (1) Acute renal failure (ARF) (2) Dehydration with hypernatremia (3) Severe sepsis (4) Shock (5) Dehydration, severe (6) Hypotension Assessment Acute kidney injury, likely on chronic kidney disease. Cr lowering Hypernatremia, with an initial sodium of 177. Na lowering Profound dehydration. improving Shock, likely septic. Hypercalcemia. on presentation Urinary tract infection. Has supraPubic cath History of traumatic brain injury, dementia, and seizure disorder. History of staghorn renal calculi with multiple UTIs, status post Plan NGT and Midodrine- K supplements as needed D5W Albumin bolus PRN KCL, Mag , Phos as needed Antibiotics Anemia yarbrough Monitor renal parameters- Avoid Nephrotoxics Due PEG- Consent taken when stable Subjective ROS Limited/Unobtainable: No Constitutional: Reports: weakness Objective Objective Last 24 Hour Vital Signs Date Time Temp Pulse Resp B/P (MAP) Pulse Ox O2 Delivery O2 Flow Rate FiO2 11/21/17 12:00 Nasal Cannula 4.0 11/21/17 12:00 84 11/21/17 12:00 97.8 84 22 106/62 (77) 95 97.8 11/21/17 08:11 97.5 90 26 93/57 (69) 96 97.5 11/21/17 08:00 94 11/21/17 08:00 Nasal Cannula 4.0 11/21/17 04:01 83 11/21/17 04:00 Nasal Cannula 4.0 11/21/17 04:00 96.6 78 26 82/52 (62) 96 96.6 11/21/17 00:00 96.9 100 24 118/70 (86) 96 96.9 11/21/17 00:00 Nasal Cannula 4.0 11/20/17 23:30 100 11/20/17 20:00 96 Nasal Cannula 4.0 36 11/20/17 20:00 Nasal Cannula 4.0 36 11/20/17 20:00 96.3 107 20 118/72 (87) 94 96.3 11/20/17 20:00 Nasal Cannula 4.0 11/20/17 19:50 110 11/20/17 16:00 97.0 95 20 99/61 (74) 96 97.0 11/20/17 16:00 89 11/20/17 16:00 Nasal Cannula 4.0 Intake and Output 11/20/17 11/21/17 19:00 07:00 Intake Total 1610 ml 1090 ml Output Total 550 ml 400 ml Balance 1060 ml 690 ml Free Water 180 ml IV Total 1555 ml 650 ml Tube Feeding 25 ml 200 ml Other 30 ml 60 ml Output Urine Total 550 ml 400 ml Laboratory Tests 11/20/17 15:05: Arterial Blood pH 7.354, Arterial Blood Partial Pressure CO2 41.6, Arterial Blood Partial Pressure O2 59.9L, Arterial Blood HCO3 22.7, Arterial Blood Oxygen Saturation 90.4L, Arterial Blood Base Excess -2.7, Yonathan Test Positive 11/20/17 15:10: Lactic Acid Level 1.10, Ammonia 34H, Vitamin B12 Level 1444H, Folate 3.9L, Thyroid Stimulating Hormone (TSH) 1.346, Rapid Plasma Reagin Non reactive 11/20/17 19:14: Urine Color Pale yellow, Urine Appearance Cloudy, Urine pH 6, Urine Specific Christine 1.010, Urine Protein 2+H, Urine Glucose (UA) Negative, Urine Ketones Negative, Urine Blood 5+H, Urine Nitrite Negative, Urine Bilirubin Negative, Urine Urobilinogen Normal, Urine Leukocyte Esterase 3+H, Urine RBC 5-10H, Urine WBC TntcH, Urine Squamous Epithelial Cells Few, Urine Bacteria ModerateH, Urine Yeast ManyH 11/21/17 06:04: White Blood Count 12.4H, Red Blood Count 3.35L, Hemoglobin 9.5L, Hematocrit 29.5L, Mean Corpuscular Volume 88, Mean Corpuscular Hemoglobin 28.4, Mean Corpuscular Hemoglobin Concent 32.3, Red Cell Distribution Width 14.4, Platelet Count 219, Mean Platelet Volume 7.1, Neutrophils (%) (Auto) 84.4H, Lymphocytes ( %) (Auto) 11.8L, Monocytes (%) (Auto) 3.3, Eosinophils (%) (Auto) 0.1, Basophils (%) (Auto) 0.3, Prothrombin Time 10.9, Prothromb Time International Ratio 1.0, Activated Partial Thromboplast Time 55H, Sodium Level 154H, Potassium Level 3.4L, Chloride Level 119H, Carbon Dioxide Level 24, Anion Gap 11 , Blood Urea Nitrogen 21H, Creatinine 2.1H, Estimat Glomerular Filtration Rate 24.6, Glucose Level 109H, Calcium Level 9.1, Phosphorus Level 2.8, Magnesium Level 2.1, Total Bilirubin 0.2, Aspartate Amino Transf (AST/SGOT) 19, Alanine Aminotransferase (ALT/SGPT) 13, Alkaline Phosphatase 141H, C-Reactive Protein, Quantitative 10.1H, Pro-B-Type Natriuretic Peptide 4782H, Total Protein 7.0, Albumin 1.9L, Globulin 5.1, Albumin/Globulin Ratio 0.4L 11/21/17 12:40: Vancomycin Level Trough [Pending] Height (Feet): 5 Height (Inches): 2.00 Weight (Pounds): 128 General Appearance: no apparent distress, lethargic Cardiovascular: normal rate Respiratory/Chest: decreased breath sounds, other - chynstokes breathing Abdomen: soft Objective no change Parrish Luo MD Nov 21, 2017 13:41
--- NOTE | 2017-11-21 14:43 | Neurology Progress Note ---
Interim History Interim History Interim History Ms. Guaman feels "better." She can be aroused today. She is cognitively impoverished. She is motorically challenged. As per Dr. Quiñones she seems to be at her best level of alertness. Review of Systems Neuro Review of Systems Unable to obtain. Objective Physical Exam Last Vital Signs Date Time Temp Pulse Resp B/P (MAP) Pulse Ox O2 Delivery O2 Flow Rate FiO2 11/21/17 12:00 Nasal Cannula 4.0 11/21/17 12:00 84 11/21/17 12:00 97.8 22 106/62 (77) 95 97.8 11/20/17 20:00 36 Laboratory Tests Test 11/20/17 15:05 11/20/17 15:10 11/20/17 19:14 11/21/17 06:04 Arterial Blood pH 7.354 (7.350-7.450) Arterial Blood Partial Pressure CO2 41.6 mmHg (35.0-45.0) Arterial Blood Partial Pressure O2 59.9 mmHg (75.0-100.0) L Arterial Blood HCO3 22.7 mmol/L (22.0-26.0) Arterial Blood Oxygen Saturation 90.4 % (92.0-98.0) L Arterial Blood Base Excess -2.7 Yonathan Test Positive Lactic Acid Level 1.10 mmol/L (0.4-2.0) Ammonia 34 umol/L (11-32) H Vitamin B12 Level 1444 PG/ML (193-986) H Folate 3.9 NG/ML (8.6-58.9) L Thyroid Stimulating Hormone (TSH) 1.346 uiU/mL (0.358-3.740) Rapid Plasma Reagin Non reactive (Non Reactive) Urine Color Pale yellow Urine Appearance Cloudy Urine pH 6 (4.5-8.0) Urine Specific [place] 1.010 (1.005-1.035) Urine Protein 2+ (NEGATIVE) H Urine Glucose (UA) Negative (NEGATIVE) Urine Ketones Negative (NEGATIVE) Urine Blood 5+ (NEGATIVE) H Urine Nitrite Negative (NEGATIVE) Urine Bilirubin Negative (NEGATIVE) Urine Urobilinogen Normal MG/DL (0.0-1.0) Urine Leukocyte Esterase 3+ (NEGATIVE) H Urine RBC 5-10 /HPF (0 - 2) H Urine WBC Tntc /HPF (0 - 2) H Urine Squamous Epithelial Cells Few /LPF (NONE/OCC) Urine Bacteria Moderate /HPF (NONE) H Urine Yeast Many /HPF (NONE) H White Blood Count 12.4 K/UL (4.8-10.8) H Red Blood Count 3.35 M/UL (4.20-5.40) L Hemoglobin 9.5 G/DL (12.0-16.0) L Hematocrit 29.5 % (37.0-47.0) L Mean Corpuscular Volume 88 FL (80-99) Mean Corpuscular Hemoglobin 28.4 PG (27.0-31.0) Mean Corpuscular Hemoglobin Concent 32.3 G/DL (32.0-36.0) Red Cell Distribution Width 14.4 % (11.6-14.8) Platelet Count 219 K/UL (150-450) Mean Platelet Volume 7.1 FL (6.5-10.1) Neutrophils (%) (Auto) 84.4 % (45.0-75.0) H Lymphocytes (%) (Auto) 11.8 % (20.0-45.0) L Monocytes (%) (Auto) 3.3 % (1.0-10.0) Eosinophils (%) (Auto) 0.1 % (0.0-3.0) Basophils (%) (Auto) 0.3 % (0.0-2.0) Prothrombin Time 10.9 SEC (9.30-11.50) Prothromb Time International Ratio 1.0 (0.9-1.1) Activated Partial Thromboplast Time 55 SEC (23-33) H Sodium Level 154 MMOL/L (136-145) H Potassium Level 3.4 MMOL/L (3.5-5.1) L Chloride Level 119 MMOL/L (98-107) H Carbon Dioxide Level 24 MMOL/L (21-32) Anion Gap 11 mmol/L (5-15) Blood Urea Nitrogen 21 mg/dL (7-18) H Creatinine 2.1 MG/DL (0.55-1.30) H Estimat Glomerular Filtration Rate 24.6 mL/min (>60) Glucose Level 109 MG/DL (74-106) H Calcium Level 9.1 MG/DL (8.5-10.1) Phosphorus Level 2.8 MG/DL (2.5-4.9) Magnesium Level 2.1 MG/DL (1.8-2.4) Total Bilirubin 0.2 MG/DL (0.2-1.0) Aspartate Amino Transf (AST/SGOT) 19 U/L (15-37) Alanine Aminotransferase (ALT/SGPT) 13 U/L (12-78) Alkaline Phosphatase 141 U/L (46-116) H C-Reactive Protein, Quantitative 10.1 mg/dL (0.00-0.90) H Pro-B-Type Natriuretic Peptide 4782 pg/mL (0-125) H Total Protein 7.0 G/DL (6.4-8.2) Albumin 1.9 G/DL (3.4-5.0) L Globulin 5.1 g/dL Albumin/Globulin Ratio 0.4 (1.0-2.7) L Test 11/21/17 12:40 Vancomycin Level Trough 15.7 ug/mL (5.0-12.0) H Neurologic Exam Objective PHYSICAL EXAMINATION: GENERAL: She is a well-developed and well-nourished lady, lying in bed , in no acute distress. HEAD: Normocephalic with right craniectomy defect. EENT: Examination benign. NECK: No neck rigidity was observed. NEUROLOGICAL EXAMINATION: MENTAL STATUS EXAMINATION: She could be aroused. She said she feels better. Further mental status testing was impossible. SPEECH: She had a dysarthria. LANGUAGE: Could not be tested. CRANIAL NERVE EXAMINATION: II: She did blink to threat. III, IV & : External ocular movements were present on oculocephalic maneuvers. The pupils were 3 mm in diameter, equal, round, regular, and reactive sluggishly to light. V & VII: Corneal reflexes were present, but brisker on the right than on the left. VIII: She did not respond to sounds and had no nystagmus. IX & X: The gag reflex was absent. IX: Sternocleidomastoids and trapezii did function minimally on applying deep painful stimuli. XII: Tongue in the midline. MOTOR SYSTEM: The tone was increased in both lower extremities with spasticity. The tone was relatively normal in the right upper extremity but was diminished in the left upper extremity. Examination of muscle mass revealed wasting of the left upper and lower extremities and in addition a flexion contracture at the elbow. The examination of power was impossible to perform accurately as she did not move her left side at all and moved her right side minimally in a nonpurposeful manner. SENSORY EXAMINATION: She responded to deep pain on the right side but not the left. REFLEXES: 2+ on the left and 2++ on the right at the biceps, triceps, brachioradialis, and knees, 0 at both ankles. The plantar responses were extensor bilaterally. COORDINATION, STANCE & GAIT: Could not be tested. Impression/Recommendations Diagnostic Impression 1. Ms. Yumiko Guaman is a 52-year-old, lady, of unknown handedness, who does have a past history of severe brain trauma with a right-sided craniectomy and significant right brain encephalomalacia. She also has a history of a seizure disorder that is undefined. She has a left plegia and prior episodes of respiratory failure, urinary tract infections, and multiple episodes of sepsis. She was hospitalized on 11/09/2017 for a urinary tract infection associated with sepsis but her mental state improved with treatment of those conditions. on 11/20/17 there was a sudden decline in her level of arousal. 2. She feels "better." She can be aroused today. She is cognitively impoverished. She is motorically challenged. As per Dr. Quiñones she seems to be at her best level of alertness. 3. On neurological examination at this time, she does demonstrate a right-sided craniectomy. She can be aroused and says she feels better. Further mental status testing is impossible. She has a dysarthria. Language cannot be tested. She does blink to visual threat. The corneal reflexes are diminished on the left side compared to the right. She has left upper extremity greater than lower extremity contractures and left-sided plegia and significant right-sided hemiparesis. She only responds to deep pain on the right side with minimal withdrawal but not on the left side. The deep tendon reflexes are brisker on the right side compared to the left and she has extensor plantar responses bilaterally. 4. CT scan of the brain without contrast performed on 11/20/2017 revealed a large right convexity craniectomy and extensive underlying temporal and parietal encephalomalacia. There was also encephalomalacia of the right cerebellum. There was a left frontal craniotomy defect with overlying mesh. There was no significant underlying parenchymal abnormality on the left side. She also had right-sided ventriculostomy. No acute pathology was noted. 5. Laboratory data revealed that she was anemic with a hemoglobin of 10.5 G. Her WBC count was 10,000 but she had a left-sided shift with 80% polymorphonuclear leukocytes. The chemistry panel revealed a creatinine elevated to 2.0. The ammonia was minimally elevated at 34. The Vitamin B12 level and TSH were normal. The Folate was minimally low at 3.9. The Urinalysis that was done on 11/09/2017 revealed 3+ leukocyte esterase, 40-60 RBCs and 40-60 WBCs per high-power field. Her latest arterial blood gas revealed a pH of 7.35, pCO2 of 42, and pO2 of 60. 6. The patient's history, neurological examination, and laboratory data and imaging studies are most compatible with worsening of a toxic metabolic encephalopathy. However her encephalopathy is better today. Recommendations 1. I agree with management thus far. 2. Continue present therapeutic management. 3. Continue aggressive antibiotic treatment. 4. Continue to correct the patient's toxic metabolic imbalances. 5. Await EEG to exclude ongoing ictal or interictal phenomena. 6. Observe closely. Roseann Barnes M.D., M.S.P.H. ROSEANN BARNES Nov 21, 2017 14:43
--- NOTE | 2017-11-21 15:00 | Infectious Diseases Prog Note ---
Assessment/Plan Problems: (1) Altered mental state Assessment & Plan: improving , continue aggressive hydration, monitor Ammonia , neurology is following, head CT no acute pathology (2) Acute pyelonephritis Assessment & Plan: with MDR Providencia stuartii, and MRSA , suspect due to right ureter stent obstruction, continue vancomycin to cover for MRSA , and ertapenem for MDR Providencia stuartii for two weeks total , urology eval is in progress , may need stent removal . EOT 11/23/17 (3) Hydronephrosis of right kidney Assessment & Plan: suspect ureter stent malfunction , urology eval is in progress, may need stent removal (4) Severe sepsis Assessment & Plan: with staph simulans , most likely contamination , grew from one set only. already on vancomycin for two weeks for MRSA pyelonephritis, repeated blood culture is negative (5) Renal failure Assessment & Plan: continue aggressive hydration , monitor renal function, avoid nephrotoxics (6) Left shoulder pain Assessment & Plan: due to chronic rotator cuff syndrom, as evident by X ray , folllow up with ortho (7) Colonization with VRE (vancomycin-resistant enterococcus) Assessment & Plan: keep in contact isolation (8) Hypotension Assessment & Plan: doubt due to sepsis , suspect dehydration . cortisol level looks ok . repeated blood culture is negative (9) Diarrhea Assessment & Plan: await stool for C diff , continue aggressive hydration Subjective ROS Limited/Unobtainable: Yes Allergies: Coded Allergies: CEFEPIME (Unverified Allergy, Unknown, 11/09/17) Subjective she was lying in bed, more awake and alert, nonverbal , unresponsive to verbal commands , a febrile, still hypotensive Objective Vital Signs Last 24 Hour Vital Signs Date Time Temp Pulse Resp B/P (MAP) Pulse Ox O2 Delivery O2 Flow Rate FiO2 11/21/17 12:00 Nasal Cannula 4.0 11/21/17 12:00 84 11/21/17 12:00 97.8 84 22 106/62 (77) 95 97.8 11/21/17 08:11 97.5 90 26 93/57 (69) 96 97.5 11/21/17 08:00 94 11/21/17 08:00 Nasal Cannula 4.0 11/21/17 04:01 83 11/21/17 04:00 Nasal Cannula 4.0 11/21/17 04:00 96.6 78 26 82/52 (62) 96 96.6 11/21/17 00:00 96.9 100 24 118/70 (86) 96 96.9 11/21/17 00:00 Nasal Cannula 4.0 11/20/17 23:30 100 11/20/17 20:00 96 Nasal Cannula 4.0 36 11/20/17 20:00 Nasal Cannula 4.0 36 11/20/17 20:00 96.3 107 20 118/72 (87) 94 96.3 11/20/17 20:00 Nasal Cannula 4.0 11/20/17 19:50 110 11/20/17 16:00 97.0 95 20 99/61 (74) 96 97.0 11/20/17 16:00 89 11/20/17 16:00 Nasal Cannula 4.0 Height (Feet): 5 Height (Inches): 2.00 Weight (Pounds): 128 General Appearance: WD/WN, no acute distress HEENT: normocephalic, atraumatic, anicteric, mucous membranes moist, PERRL Respiratory/Chest: chest wall non-tender, no respiratory distress, no accessory muscle use, decreased breath sounds, crackles/rales Cardiovascular: normal peripheral pulses, normal rate, regular rhythm, no gallop/murmur, no JVD Abdomen: normal bowel sounds, soft, non tender, no organomegaly, non distended , no mass, no scars Extremities: no cyanosis, no clubbing Skin: no rash, no lesions, no ulcers Neurologic/Psychiatric: formulation chemist II-XII grossly normal, no motor/sensory deficits, abnormal gait, alert, oriented x 3, responsive, normal mood/affect Lymphatic: no neck adenopathy, no groin adenopathy Musculoskeletal: normal muscle bulk, no effusion Microbiology Date/Time Source Procedure Growth Status 11/20/17 19:14 Urine,Clean Catch Urine Culture - Preliminary NO GROWTH Resulted Laboratory Tests Test 11/20/17 15:05 11/20/17 15:10 11/20/17 19:14 11/21/17 06:04 Arterial Blood pH 7.354 (7.350-7.450) Arterial Blood Partial Pressure CO2 41.6 mmHg (35.0-45.0) Arterial Blood Partial Pressure O2 59.9 mmHg (75.0-100.0) L Arterial Blood HCO3 22.7 mmol/L (22.0-26.0) Arterial Blood Oxygen Saturation 90.4 % (92.0-98.0) L Arterial Blood Base Excess -2.7 Yonathan Test Positive Lactic Acid Level 1.10 mmol/L (0.4-2.0) Ammonia 34 umol/L (11-32) H Vitamin B12 Level 1444 PG/ML (193-986) H Folate 3.9 NG/ML (8.6-58.9) L Thyroid Stimulating Hormone (TSH) 1.346 uiU/mL (0.358-3.740) Rapid Plasma Reagin Non reactive (Non Reactive) Urine Color Pale yellow Urine Appearance Cloudy Urine pH 6 (4.5-8.0) Urine Specific [place] 1.010 (1.005-1.035) Urine Protein 2+ (NEGATIVE) H Urine Glucose (UA) Negative (NEGATIVE) Urine Ketones Negative (NEGATIVE) Urine Blood 5+ (NEGATIVE) H Urine Nitrite Negative (NEGATIVE) Urine Bilirubin Negative (NEGATIVE) Urine Urobilinogen Normal MG/DL (0.0-1.0) Urine Leukocyte Esterase 3+ (NEGATIVE) H Urine RBC 5-10 /HPF (0 - 2) H Urine WBC Tntc /HPF (0 - 2) H Urine Squamous Epithelial Cells Few /LPF (NONE/OCC) Urine Bacteria Moderate /HPF (NONE) H Urine Yeast Many /HPF (NONE) H White Blood Count 12.4 K/UL (4.8-10.8) H Red Blood Count 3.35 M/UL (4.20-5.40) L Hemoglobin 9.5 G/DL (12.0-16.0) L Hematocrit 29.5 % (37.0-47.0) L Mean Corpuscular Volume 88 FL (80-99) Mean Corpuscular Hemoglobin 28.4 PG (27.0-31.0) Mean Corpuscular Hemoglobin Concent 32.3 G/DL (32.0-36.0) Red Cell Distribution Width 14.4 % (11.6-14.8) Platelet Count 219 K/UL (150-450) Mean Platelet Volume 7.1 FL (6.5-10.1) Neutrophils (%) (Auto) 84.4 % (45.0-75.0) H Lymphocytes (%) (Auto) 11.8 % (20.0-45.0) L Monocytes (%) (Auto) 3.3 % (1.0-10.0) Eosinophils (%) (Auto) 0.1 % (0.0-3.0) Basophils (%) (Auto) 0.3 % (0.0-2.0) Prothrombin Time 10.9 SEC (9.30-11.50) Prothromb Time International Ratio 1.0 (0.9-1.1) Activated Partial Thromboplast Time 55 SEC (23-33) H Sodium Level 154 MMOL/L (136-145) H Potassium Level 3.4 MMOL/L (3.5-5.1) L Chloride Level 119 MMOL/L (98-107) H Carbon Dioxide Level 24 MMOL/L (21-32) Anion Gap 11 mmol/L (5-15) Blood Urea Nitrogen 21 mg/dL (7-18) H Creatinine 2.1 MG/DL (0.55-1.30) H Estimat Glomerular Filtration Rate 24.6 mL/min (>60) Glucose Level 109 MG/DL (74-106) H Calcium Level 9.1 MG/DL (8.5-10.1) Phosphorus Level 2.8 MG/DL (2.5-4.9) Magnesium Level 2.1 MG/DL (1.8-2.4) Total Bilirubin 0.2 MG/DL (0.2-1.0) Aspartate Amino Transf (AST/SGOT) 19 U/L (15-37) Alanine Aminotransferase (ALT/SGPT) 13 U/L (12-78) Alkaline Phosphatase 141 U/L (46-116) H C-Reactive Protein, Quantitative 10.1 mg/dL (0.00-0.90) H Pro-B-Type Natriuretic Peptide 4782 pg/mL (0-125) H Total Protein 7.0 G/DL (6.4-8.2) Albumin 1.9 G/DL (3.4-5.0) L Globulin 5.1 g/dL Albumin/Globulin Ratio 0.4 (1.0-2.7) L Test 11/21/17 12:40 Vancomycin Level Trough 15.7 ug/mL (5.0-12.0) H Current Medications Medications (Trade) Dose Ordered Sig/Tay Route PRN Reason Start Time Stop Time Status Last Admin Dose Admin Acetaminophen (Tylenol) 650 mg Q6H PRN ORAL Mild Pain/Temp > 101 11/09/17 21:30 12/09/17 21:29 Albumin Human 500 ml @ 0 mls/hr Q0M IV 11/21/17 15:00 12/21/17 14:59 Dextrose/ Electrolytes 1,000 ml @ 50 mls/hr Q20H IV 11/19/17 09:00 12/19/17 08:59 11/21/17 01:00 Ertapenem 1 gm/ Sodium Chloride 55 ml @ 110 mls/hr Q24H IVPB 11/15/17 18:00 11/23/17 23:59 11/20/17 18:15 Folic Acid (Folate) 2 mg DAILY NG 11/22/17 09:00 12/20/17 20:59 Heparin Sodium (Porcine) (Heparin 5000 units/ml) 5,000 units EVERY 12 HOURS SUBQ 11/10/17 09:00 12/10/17 08:59 11/21/17 08:13 Lansoprazole (Prevacid) 30 mg DAILY NG 11/22/17 09:00 12/22/17 08:59 Levetiracetam 100 ml @ 400 mls/hr Q12HR IVPB 11/09/17 22:30 12/09/17 22:29 11/21/17 09:49 Midodrine (Pro-Amatine) 10 mg THREE TIMES A DAY ORAL 11/20/17 18:00 12/20/17 17:59 11/21/17 13:10 Ondansetron HCl (Zofran) 4 mg Q4H PRN IVP Nausea & Vomiting 11/09/17 21:30 12/09/17 21:29 Sennosides (Senokot) 1 tab DAILY PRN ORAL Constipation 11/09/17 21:30 12/09/17 21:29 Vancomycin HCl (Vanco rx to dose) 1 ea DAILY PRN MISC Per rx protocol 11/12/17 13:30 12/12/17 13:29 Vancomycin HCl 500 mg/Dextrose 110 ml @ 110 mls/hr Q48H IVPB 11/17/17 13:00 11/23/17 23:59 11/21/17 13:10 Kortney Quiñones M.D. Nov 21, 2017 15:00
[2017-11-21 16:00] VITALS: BP 104/59
--- NOTE | 2017-11-21 16:53 | Urology Progress Note ---
Assessment/Plan Assessment/Plan 1. History of hydronephrosis that is chronic. 2. Renal insufficiency, acute on chronic, labile. 3. Hematuria. 4. Pyuria. 5. Proteinuria. 6. Urinary retention with chronic suprapubic tube. 7. Neurogenic bladder. sp tube indwelling, last exchanged 11/18 hand irrigated, patent abx as ordered monitor renal fxn need old recs indwelling ureteral stents can be addressed by pt's outside urologist once medically more stable Subjective Allergies: Coded Allergies: CEFEPIME (Unverified Allergy, Unknown, 11/09/17) Subjective all noted Objective Last 24 Hour Vital Signs Date Time Temp Pulse Resp B/P (MAP) Pulse Ox O2 Delivery O2 Flow Rate FiO2 11/21/17 12:00 Nasal Cannula 4.0 11/21/17 12:00 84 11/21/17 12:00 97.8 84 22 106/62 (77) 95 97.8 11/21/17 08:11 97.5 90 26 93/57 (69) 96 97.5 11/21/17 08:00 94 11/21/17 08:00 Nasal Cannula 4.0 11/21/17 04:01 83 11/21/17 04:00 Nasal Cannula 4.0 11/21/17 04:00 96.6 78 26 82/52 (62) 96 96.6 11/21/17 00:00 96.9 100 24 118/70 (86) 96 96.9 11/21/17 00:00 Nasal Cannula 4.0 11/20/17 23:30 100 11/20/17 20:00 96 Nasal Cannula 4.0 36 11/20/17 20:00 Nasal Cannula 4.0 36 11/20/17 20:00 96.3 107 20 118/72 (87) 94 96.3 11/20/17 20:00 Nasal Cannula 4.0 11/20/17 19:50 110 Intake and Output 11/20/17 11/21/17 19:00 07:00 Intake Total 1610 ml 1090 ml Output Total 550 ml 400 ml Balance 1060 ml 690 ml Free Water 180 ml IV Total 1555 ml 650 ml Tube Feeding 25 ml 200 ml Other 30 ml 60 ml Output Urine Total 550 ml 400 ml Microbiology Date/Time Source Procedure Growth Status 11/13/17 15:10 Blood Blood Culture - Final NO GROWTH AFTER 5 DAYS Complete 11/09/17 20:25 Nasal Nares MRSA Culture - Final Staphylococcus Aureus - Mrsa Complete 11/20/17 19:14 Urine,Clean Catch Urine Culture - Preliminary NO GROWTH Resulted 11/10/17 20:25 Rectum - Final NO CARBAPENEM-RESISTANT ENTEROBACTERI... Complete Current Medications Medications (Trade) Dose Ordered Sig/Tay Route PRN Reason Start Time Stop Time Status Last Admin Dose Admin Acetaminophen (Tylenol) 650 mg Q6H PRN ORAL Mild Pain/Temp > 101 11/09/17 21:30 12/09/17 21:29 Albumin Human 500 ml @ 0 mls/hr Q0M IV 11/21/17 15:00 12/21/17 14:59 Dextrose/ Electrolytes 1,000 ml @ 50 mls/hr Q20H IV 11/19/17 09:00 12/19/17 08:59 11/21/17 01:00 Ertapenem 1 gm/ Sodium Chloride 55 ml @ 110 mls/hr Q24H IVPB 11/15/17 18:00 11/23/17 23:59 11/20/17 18:15 Folic Acid (Folate) 2 mg DAILY NG 11/22/17 09:00 12/20/17 20:59 Heparin Sodium (Porcine) (Heparin 5000 units/ml) 5,000 units EVERY 12 HOURS SUBQ 11/10/17 09:00 12/10/17 08:59 11/21/17 08:13 Lansoprazole (Prevacid) 30 mg DAILY NG 11/22/17 09:00 12/22/17 08:59 Levetiracetam 100 ml @ 400 mls/hr Q12HR IVPB 11/09/17 22:30 12/09/17 22:29 11/21/17 09:49 Midodrine (Pro-Amatine) 10 mg THREE TIMES A DAY ORAL 11/20/17 18:00 12/20/17 17:59 11/21/17 13:10 Ondansetron HCl (Zofran) 4 mg Q4H PRN IVP Nausea & Vomiting 11/09/17 21:30 12/09/17 21:29 Sennosides (Senokot) 1 tab DAILY PRN ORAL Constipation 11/09/17 21:30 12/09/17 21:29 Vancomycin HCl (Vanco rx to dose) 1 ea DAILY PRN MISC Per rx protocol 11/12/17 13:30 12/12/17 13:29 Vancomycin HCl 500 mg/Dextrose 110 ml @ 110 mls/hr Q48H IVPB 11/17/17 13:00 11/23/17 23:59 11/21/17 13:10 Laboratory Tests 11/20/17 19:14: Urine Color Pale yellow, Urine Appearance Cloudy, Urine pH 6, Urine Specific [place] 1.010, Urine Protein 2+H, Urine Glucose (UA) Negative, Urine Ketones Negative, Urine Blood 5+H, Urine Nitrite Negative, Urine Bilirubin Negative, Urine Urobilinogen Normal, Urine Leukocyte Esterase 3+H, Urine RBC 5-10H, Urine WBC TntcH, Urine Squamous Epithelial Cells Few, Urine Bacteria ModerateH, Urine Yeast ManyH 11/21/17 06:04: White Blood Count 12.4H, Red Blood Count 3.35L, Hemoglobin 9.5L, Hematocrit 29.5L, Mean Corpuscular Volume 88, Mean Corpuscular Hemoglobin 28.4, Mean Corpuscular Hemoglobin Concent 32.3, Red Cell Distribution Width 14.4, Platelet Count 219, Mean Platelet Volume 7.1, Neutrophils (%) (Auto) 84.4H, Lymphocytes ( %) (Auto) 11.8L, Monocytes (%) (Auto) 3.3, Eosinophils (%) (Auto) 0.1, Basophils (%) (Auto) 0.3, Prothrombin Time 10.9, Prothromb Time International Ratio 1.0, Activated Partial Thromboplast Time 55H, Sodium Level 154H, Potassium Level 3.4L, Chloride Level 119H, Carbon Dioxide Level 24, Anion Gap 11 , Blood Urea Nitrogen 21H, Creatinine 2.1H, Estimat Glomerular Filtration Rate 24.6, Glucose Level 109H, Calcium Level 9.1, Phosphorus Level 2.8, Magnesium Level 2.1, Total Bilirubin 0.2, Aspartate Amino Transf (AST/SGOT) 19, Alanine Aminotransferase (ALT/SGPT) 13, Alkaline Phosphatase 141H, C-Reactive Protein, Quantitative 10.1H, Pro-B-Type Natriuretic Peptide 4782H, Total Protein 7.0, Albumin 1.9L, Globulin 5.1, Albumin/Globulin Ratio 0.4L 11/21/17 12:40: Vancomycin Level Trough 15.7H Height (Feet): 5 Height (Inches): 2.00 Weight (Pounds): 128 Objective exam stable WILBER GALINDO Nov 21, 2017 16:53
[2017-11-21] MEDS: Ertapenem 1 GM in NS 55 ML IVPB SCH (18:16)
--- NOTE | 2017-11-21 18:59 | Pulmonology Progress Note ---
Assessment/Plan Assessment/Plan ASSESSMENT: The patient is a 52-year-old jail resident with history of dementia, traumatic brain injury, recurrent staghorn calculi, recurrent urinary tract infection, suprapubic catheter, prior trach, seizure disorder, nonverbal at baseline, presenting initially for desaturation, but now is stable respiratory dynamics, but concerned for sepsis and profound dehydration with acute kidney injury, anion gap, metabolic acidosis, lactic acidosis, and hemoconcentration all likely secondary to a source. PROBLEM LIST: 1. SIRS/sepsis. 2. Shock, likely septic. 3. Profound dehydration. 4. Hypernatremia, with an initial sodium of 177. 5. Anion gap metabolic acidosis, lactic acidosis. 6. Acute kidney injury, likely on chronic kidney disease. 7. Hypercalcemia. 8. Urinary tract infection. 9. History of traumatic brain injury, dementia, and seizure disorder. 10. History of prior tracheostomy, status post takedown. 11. History of staghorn renal calculi with multiple UTIs, status post suprapubic catheter placement. 12. care home resident. 13. Nonverbal at baseline. 14. Bed-bound. 15. Full Code. TREATMENT PLAN: 1. IVF per renal 2. S/P NGT, per GI for meds only, POLST needs updating, consent from PEG previously given by son 3. PRN O2, PRN HHN's 4. Continue ERTA and VANCO per ID, repeat CX's 5. F/U recs 6. Monitor MS, F/U neuro recs 7. Heparin subcutaneous for DVT prophylaxis. 8. The patient is a Full Code, POLST reviewed by myself, we continue to discuss goals of care further ---> MESSAGE LEFT AGAIN FOR PADDY CASTREJON, NO CALL BACK, WILL REQUEST ANOTHER BIOETHICS EVAL. PLEASE ARRANGE A FAMILY MEETING NEXT WEEK. Subjective Allergies: Coded Allergies: CEFEPIME (Unverified Allergy, Unknown, 11/09/17) Subjective S/P NGT, AFVSS, 4L O2 CT head noted, seen by neuro Opens eyes, no cough, no secretions, no F/C Objective Last 24 Hour Vital Signs Date Time Temp Pulse Resp B/P (MAP) Pulse Ox O2 Delivery O2 Flow Rate FiO2 11/21/17 16:00 88 11/21/17 16:00 97.9 88 20 104/59 (74) 98 97.9 11/21/17 16:00 Nasal Cannula 4.0 11/21/17 12:00 Nasal Cannula 4.0 11/21/17 12:00 84 11/21/17 12:00 97.8 84 22 106/62 (77) 95 97.8 11/21/17 08:11 97.5 90 26 93/57 (69) 96 97.5 11/21/17 08:00 94 11/21/17 08:00 Nasal Cannula 4.0 11/21/17 04:01 83 11/21/17 04:00 Nasal Cannula 4.0 11/21/17 04:00 96.6 78 26 82/52 (62) 96 96.6 11/21/17 00:00 96.9 100 24 118/70 (86) 96 96.9 11/21/17 00:00 Nasal Cannula 4.0 11/20/17 23:30 100 11/20/17 20:00 96 Nasal Cannula 4.0 36 11/20/17 20:00 Nasal Cannula 4.0 36 11/20/17 20:00 96.3 107 20 118/72 (87) 94 96.3 11/20/17 20:00 Nasal Cannula 4.0 11/20/17 19:50 110 Intake and Output 11/20/17 11/21/17 19:00 07:00 Intake Total 1610 ml 1090 ml Output Total 550 ml 400 ml Balance 1060 ml 690 ml Free Water 180 ml IV Total 1555 ml 650 ml Tube Feeding 25 ml 200 ml Other 30 ml 60 ml Output Urine Total 550 ml 400 ml General Appearance: cachetic, other - barely opens eyes HEENT: normocephalic, atraumatic Respiratory/Chest: rhonchi Cardiovascular: normal peripheral pulses, normal rate, regular rhythm Abdomen: normal bowel sounds, soft, non tender, no organomegaly, non distended , no mass, other - SOC Extremities: no cyanosis, no clubbing, no edema, other - contrated Microbiology Date/Time Source Procedure Growth Status 11/20/17 19:14 Urine,Clean Catch Urine Culture - Preliminary NO GROWTH Resulted Laboratory Tests 11/20/17 19:14: Urine Color Pale yellow, Urine Appearance Cloudy, Urine pH 6, Urine Specific [place] 1.010, Urine Protein 2+H, Urine Glucose (UA) Negative, Urine Ketones Negative, Urine Blood 5+H, Urine Nitrite Negative, Urine Bilirubin Negative, Urine Urobilinogen Normal, Urine Leukocyte Esterase 3+H, Urine RBC 5-10H, Urine WBC TntcH, Urine Squamous Epithelial Cells Few, Urine Bacteria ModerateH, Urine Yeast ManyH 11/21/17 06:04: White Blood Count 12.4H, Red Blood Count 3.35L, Hemoglobin 9.5L, Hematocrit 29.5L, Mean Corpuscular Volume 88, Mean Corpuscular Hemoglobin 28.4, Mean Corpuscular Hemoglobin Concent 32.3, Red Cell Distribution Width 14.4, Platelet Count 219, Mean Platelet Volume 7.1, Neutrophils (%) (Auto) 84.4H, Lymphocytes ( %) (Auto) 11.8L, Monocytes (%) (Auto) 3.3, Eosinophils (%) (Auto) 0.1, Basophils (%) (Auto) 0.3, Prothrombin Time 10.9, Prothromb Time International Ratio 1.0, Activated Partial Thromboplast Time 55H, Sodium Level 154H, Potassium Level 3.4L, Chloride Level 119H, Carbon Dioxide Level 24, Anion Gap 11 , Blood Urea Nitrogen 21H, Creatinine 2.1H, Estimat Glomerular Filtration Rate 24.6, Glucose Level 109H, Calcium Level 9.1, Phosphorus Level 2.8, Magnesium Level 2.1, Total Bilirubin 0.2, Aspartate Amino Transf (AST/SGOT) 19, Alanine Aminotransferase (ALT/SGPT) 13, Alkaline Phosphatase 141H, C-Reactive Protein, Quantitative 10.1H, Pro-B-Type Natriuretic Peptide 4782H, Total Protein 7.0, Albumin 1.9L, Globulin 5.1, Albumin/Globulin Ratio 0.4L 11/21/17 12:40: Vancomycin Level Trough 15.7H Current Medications Medications (Trade) Dose Ordered Sig/Tay Route PRN Reason Start Time Stop Time Status Last Admin Dose Admin Acetaminophen (Tylenol) 650 mg Q6H PRN ORAL Mild Pain/Temp > 101 11/09/17 21:30 12/09/17 21:29 Albumin Human 500 ml @ 0 mls/hr Q0M IV 11/21/17 15:00 12/21/17 14:59 Dextrose/ Electrolytes 1,000 ml @ 50 mls/hr Q20H IV 11/19/17 09:00 12/19/17 08:59 11/21/17 01:00 Ertapenem 1 gm/ Sodium Chloride 55 ml @ 110 mls/hr Q24H IVPB 11/15/17 18:00 11/23/17 23:59 11/21/17 18:16 Folic Acid (Folate) 2 mg DAILY NG 11/22/17 09:00 12/20/17 20:59 Heparin Sodium (Porcine) (Heparin 5000 units/ml) 5,000 units EVERY 12 HOURS SUBQ 11/10/17 09:00 12/10/17 08:59 11/21/17 08:13 Lansoprazole (Prevacid) 30 mg DAILY NG 11/22/17 09:00 12/22/17 08:59 Levetiracetam 100 ml @ 400 mls/hr Q12HR IVPB 11/09/17 22:30 12/09/17 22:29 11/21/17 09:49 Midodrine (Pro-Amatine) 10 mg THREE TIMES A DAY ORAL 11/20/17 18:00 12/20/17 17:59 11/21/17 18:15 Ondansetron HCl (Zofran) 4 mg Q4H PRN IVP Nausea & Vomiting 11/09/17 21:30 12/09/17 21:29 Sennosides (Senokot) 1 tab DAILY PRN ORAL Constipation 11/09/17 21:30 12/09/17 21:29 Vancomycin HCl (Vanco rx to dose) 1 ea DAILY PRN MISC Per rx protocol 11/12/17 13:30 12/12/17 13:29 Vancomycin HCl 500 mg/Dextrose 110 ml @ 110 mls/hr Q48H IVPB 11/17/17 13:00 11/23/17 23:59 11/21/17 13:10 Jose Montalvo MD Nov 21, 2017 18:59
[2017-11-21 20:00] VITALS: BP 99/55
[2017-11-22] VITALS: BP 110/61
[2017-11-22 04:00] VITALS: BP 104/60
[2017-11-22 05:34] LABS: BASOPHILS % (AUTO) 0.4 % (0.0-2.0); EOSINOPHILS % (AUTO) 0.6 % (0.0-3.0); HEMATOCRIT 27.9 % (37.0-47.0); HEMOGLOBIN 9.2 G/DL (12.0-16.0); LYMPHOCYTES % (AUTO) 13.1 % (20.0-45.0); MEAN CORPUSCULAR VOLUME 88 FL (80-99); MONOCYTES % (AUTO) 3.8 % (1.0-10.0); NEUTROPHILS % (AUTO) 82.2 % (45.0-75.0); PLATELET COUNT 205 K/UL (150-450); RED BLOOD COUNT 3.17 M/UL (4.20-5.40); RED CELL DISTRIBUTION WIDTH 14.9 % (11.6-14.8); WHITE BLOOD COUNT 13.2 K/UL (4.8-10.8)
[2017-11-22 06:53] LABS: ANION GAP 9 mmol/L (5-15); BLOOD UREA NITROGEN 24 mg/dL (7-18); CALCIUM 8.8 MG/DL (8.5-10.1); CARBON DIOXIDE 25 MMOL/L (21-32); CHLORIDE 127 MMOL/L (98-107); PHOSPHORUS 1.5 MG/DL (2.5-4.9); POTASSIUM 3.3 MMOL/L (3.5-5.1)
[2017-11-22 06:58] LABS: SODIUM 161 MMOL/L (136-145)
[2017-11-22 08:00] VITALS: BP 118/66
--- NOTE | 2017-11-22 09:13 | Nephrology Progress Note ---
Assessment/Plan Problem List: (1) Acute renal failure (ARF) (2) Dehydration with hypernatremia (3) Severe sepsis (4) Shock (5) Dehydration, severe (6) Hypotension Assessment Acute kidney injury, likely on chronic kidney disease. Cr lowering Hypernatremia, with an initial sodium of 177. Na lowering Profound dehydration. improving Shock, likely septic. Hypercalcemia. on presentation Urinary tract infection. Has supraPubic cath History of traumatic brain injury, dementia, and seizure disorder. History of staghorn renal calculi with multiple UTIs, status post Plan NGT and Midodrine- K supplements as needed D5W Albumin bolus PRN KCL, Mag , Phos as needed Antibiotics Anemia yarbrough Monitor renal parameters- Avoid Nephrotoxics Due PEG- Consent taken when stable Subjective ROS Limited/Unobtainable: No Constitutional: Reports: malaise Objective Objective Last 24 Hour Vital Signs Date Time Temp Pulse Resp B/P (MAP) Pulse Ox O2 Delivery O2 Flow Rate FiO2 11/22/17 08:15 97 Nasal Cannula 4.0 36 11/22/17 08:15 Nasal Cannula 4.0 36 11/22/17 04:00 Nasal Cannula 4.0 11/22/17 04:00 70 11/22/17 04:00 96.9 79 18 104/60 (75) 97 96.9 11/22/17 00:00 Nasal Cannula 4.0 11/22/17 00:00 96.1 88 22 110/61 (77) 95 96.1 11/21/17 23:38 119 11/21/17 23:29 80 11/21/17 23:02 63 11/21/17 20:00 98.6 74 20 99/55 (70) 97 98.6 11/21/17 20:00 76 11/21/17 20:00 Nasal Cannula 4.0 11/21/17 19:39 Nasal Cannula 4.0 36 11/21/17 19:39 97 Nasal Cannula 4.0 36 11/21/17 16:00 88 11/21/17 16:00 97.9 88 20 104/59 (74) 98 97.9 11/21/17 16:00 Nasal Cannula 4.0 11/21/17 12:00 Nasal Cannula 4.0 11/21/17 12:00 84 11/21/17 12:00 97.8 84 22 106/62 (77) 95 97.8 Intake and Output 11/21/17 11/22/17 19:00 07:00 Intake Total 1300 ml 1036.6 ml Output Total 800 ml 800 ml Balance 500 ml 236.6 ml Free Water 150 ml 30 ml IV Total 760 ml 621.6 ml Tube Feeding 270 ml 385 ml Other 120 ml Output Urine Total 800 ml 700 ml Stool Total 100 ml # Bowel Movements 60 Laboratory Tests 11/21/17 12:40: Vancomycin Level Trough 15.7H 11/22/17 03:55: White Blood Count 13.2H, Red Blood Count 3.17L, Hemoglobin 9.2L, Hematocrit 27.9L, Mean Corpuscular Volume 88, Mean Corpuscular Hemoglobin 29.1, Mean Corpuscular Hemoglobin Concent 33.2, Red Cell Distribution Width 14.9H, Platelet Count 205, Mean Platelet Volume 6.9, Neutrophils (%) (Auto) 82.2H, Lymphocytes (%) (Auto) 13.1L, Monocytes (%) (Auto) 3.8, Eosinophils (%) (Auto) 0.6, Basophils (%) (Auto) 0.4, Sodium Level 161*H, Potassium Level 3.3L, Chloride Level 127H, Carbon Dioxide Level 25, Anion Gap 9, Blood Urea Nitrogen 24H, Creatinine 2.0H, Estimat Glomerular Filtration Rate 26.0, Glucose Level 101 , Calcium Level 8.8, Phosphorus Level 1.5L, Magnesium Level 2.2 Height (Feet): 5 Height (Inches): 2.00 Weight (Pounds): 128 General Appearance: no apparent distress, lethargic Cardiovascular: other - variable rate Respiratory/Chest: decreased breath sounds Abdomen: soft Objective no change Parrish Luo MD Nov 22, 2017 09:13
[2017-11-22] MEDS: levETIRAcetam 500mg/NS100ml 100 ML IVPB SCH (09:53)
[2017-11-22] MEDS: Midodrine 10mg tab ORAL SCH ×3 (09:53→17:16)
[2017-11-22] MEDS: Heparin 5000 units/ml inj SUBQ SCH ×2 (09:55→20:36)
[2017-11-22] MEDS ORDERED: Potassium Phosphate 30 MM in NS 275 ML IV SCH (10:00)
[2017-11-22 12:00] VITALS: BP 138/72
[2017-11-22] MEDS ORDERED: NS 275ml ONE ×2 (13:03→13:05)
[2017-11-22] MEDS ORDERED: NS 500ML ONE ×3 (13:03→15:20)
[2017-11-22] MEDS ORDERED: Tubing IV Secondary IV ONE ×2 (13:05→15:20)
[2017-11-22] MEDS ORDERED: D5W 275ml ONE (13:05)
[2017-11-22] MEDS ORDERED: Sterile Water Irrig 1000ml IRRIG ONE (13:05)
--- NOTE | 2017-11-22 13:54 | Infectious Diseases Prog Note ---
Assessment/Plan Problems: (1) Catheter-associated urinary tract infection Assessment & Plan: with amy spp , recommend to change suprapubic catheter since it is colonized with yeast, will start fluconazole for 14 days (2) Altered mental state Assessment & Plan: improving , continue aggressive hydration, neurology is following, head CT no acute pathology (3) Acute pyelonephritis Assessment & Plan: with MDR Providencia stuartii, and MRSA , suspect due to right ureter stent obstruction, continue vancomycin to cover for MRSA , and ertapenem for MDR Providencia stuartii for two weeks total , urology eval is in progress , may need stent removal . EOT 11/23/17 (4) Hydronephrosis of right kidney Assessment & Plan: suspect ureter stent malfunction , urology eval is in progress, may need stent removal (5) Severe sepsis Assessment & Plan: with staph simulans , most likely contamination , grew from one set only. already on vancomycin for two weeks for MRSA pyelonephritis, repeated blood culture is negative (6) Renal failure Assessment & Plan: continue aggressive hydration , monitor renal function, avoid nephrotoxics (7) Left shoulder pain Assessment & Plan: due to chronic rotator cuff syndrom, as evident by X ray , folllow up with ortho (8) Colonization with VRE (vancomycin-resistant enterococcus) Assessment & Plan: keep in contact isolation (9) Hypotension Assessment & Plan: doubt due to sepsis , suspect dehydration . cortisol level looks ok . repeated blood culture is negative (10) Diarrhea Assessment & Plan: await stool for C diff , continue aggressive hydration Subjective ROS Limited/Unobtainable: Yes Allergies: Coded Allergies: CEFEPIME (Unverified Allergy, Unknown, 11/09/17) Subjective she was lying in bed, awake and alert, nonverbal , unresponsive to verbal commands , a febrile, still hypotensive Objective Vital Signs Last 24 Hour Vital Signs Date Time Temp Pulse Resp B/P (MAP) Pulse Ox O2 Delivery O2 Flow Rate FiO2 11/22/17 12:00 Nasal Cannula 4.0 11/22/17 12:00 101 11/22/17 12:00 98.0 101 20 138/72 (94) 95 98.0 11/22/17 08:15 97 Nasal Cannula 4.0 36 11/22/17 08:15 Nasal Cannula 4.0 36 11/22/17 08:00 Nasal Cannula 4.0 11/22/17 08:00 97.8 99 20 118/66 (83) 93 97.8 11/22/17 08:00 82 11/22/17 04:00 Nasal Cannula 4.0 11/22/17 04:00 70 11/22/17 04:00 96.9 79 18 104/60 (75) 97 96.9 11/22/17 00:00 Nasal Cannula 4.0 11/22/17 00:00 96.1 88 22 110/61 (77) 95 96.1 11/21/17 23:38 119 11/21/17 23:29 80 11/21/17 23:02 63 11/21/17 20:00 98.6 74 20 99/55 (70) 97 98.6 11/21/17 20:00 76 11/21/17 20:00 Nasal Cannula 4.0 11/21/17 19:39 Nasal Cannula 4.0 36 11/21/17 19:39 97 Nasal Cannula 4.0 36 11/21/17 16:00 88 11/21/17 16:00 97.9 88 20 104/59 (74) 98 97.9 11/21/17 16:00 Nasal Cannula 4.0 Height (Feet): 5 Height (Inches): 2.00 Weight (Pounds): 128 General Appearance: WD/WN, no acute distress HEENT: normocephalic, atraumatic, anicteric, mucous membranes moist, PERRL, supple, no JVD Respiratory/Chest: chest wall non-tender, no respiratory distress, no accessory muscle use, decreased breath sounds, crackles/rales Cardiovascular: normal peripheral pulses, normal rate, regular rhythm, no gallop/murmur, no JVD Abdomen: normal bowel sounds, soft, non tender, no organomegaly, non distended , no mass, no scars Extremities: no cyanosis, no clubbing Skin: no rash, no lesions Neurologic/Psychiatric: alert, unresponsiveness Lymphatic: no neck adenopathy, no groin adenopathy Musculoskeletal: normal muscle bulk, no effusion Microbiology Date/Time Source Procedure Growth Status 11/21/17 14:30 Stool Clostridium difficile Toxin Assay - Final Complete 11/20/17 19:14 Urine,Clean Catch Urine Culture - Final Amy Albicans Complete Laboratory Tests Test 11/22/17 03:55 White Blood Count 13.2 K/UL (4.8-10.8) H Red Blood Count 3.17 M/UL (4.20-5.40) L Hemoglobin 9.2 G/DL (12.0-16.0) L Hematocrit 27.9 % (37.0-47.0) L Mean Corpuscular Volume 88 FL (80-99) Mean Corpuscular Hemoglobin 29.1 PG (27.0-31.0) Mean Corpuscular Hemoglobin Concent 33.2 G/DL (32.0-36.0) Red Cell Distribution Width 14.9 % (11.6-14.8) H Platelet Count 205 K/UL (150-450) Mean Platelet Volume 6.9 FL (6.5-10.1) Neutrophils (%) (Auto) 82.2 % (45.0-75.0) H Lymphocytes (%) (Auto) 13.1 % (20.0-45.0) L Monocytes (%) (Auto) 3.8 % (1.0-10.0) Eosinophils (%) (Auto) 0.6 % (0.0-3.0) Basophils (%) (Auto) 0.4 % (0.0-2.0) Sodium Level 161 MMOL/L (136-145) *H Potassium Level 3.3 MMOL/L (3.5-5.1) L Chloride Level 127 MMOL/L (98-107) H Carbon Dioxide Level 25 MMOL/L (21-32) Anion Gap 9 mmol/L (5-15) Blood Urea Nitrogen 24 mg/dL (7-18) H Creatinine 2.0 MG/DL (0.55-1.30) H Estimat Glomerular Filtration Rate 26.0 mL/min (>60) Glucose Level 101 MG/DL (74-106) Calcium Level 8.8 MG/DL (8.5-10.1) Phosphorus Level 1.5 MG/DL (2.5-4.9) L Magnesium Level 2.2 MG/DL (1.8-2.4) Current Medications Medications (Trade) Dose Ordered Sig/Tay Route PRN Reason Start Time Stop Time Status Last Admin Dose Admin Acetaminophen (Tylenol) 650 mg Q6H PRN ORAL Mild Pain/Temp > 101 11/09/17 21:30 12/09/17 21:29 Albumin Human 500 ml @ 0 mls/hr Q0M IV 11/21/17 15:00 12/21/17 14:59 Dextrose 1,000 ml @ 100 mls/hr Q10H IV 11/22/17 09:10 12/22/17 09:09 11/22/17 09:52 Ertapenem 1 gm/ Sodium Chloride 55 ml @ 110 mls/hr Q24H IVPB 11/15/17 18:00 11/23/17 23:59 11/21/17 18:16 Fluconazole/ Sodium Chloride 100 ml @ 100 mls/hr Q24H IV 11/22/17 17:00 11/29/17 16:59 Folic Acid (Folate) 2 mg DAILY NG 11/22/17 09:00 12/20/17 20:59 11/22/17 09:53 Heparin Sodium (Porcine) (Heparin 5000 units/ml) 5,000 units EVERY 12 HOURS SUBQ 11/10/17 09:00 12/10/17 08:59 11/22/17 09:55 Lansoprazole (Prevacid) 30 mg DAILY NG 11/22/17 09:00 12/22/17 08:59 11/22/17 09:54 Levetiracetam 100 ml @ 400 mls/hr Q12HR IVPB 11/09/17 22:30 12/09/17 22:29 11/22/17 09:53 Midodrine (Pro-Amatine) 10 mg THREE TIMES A DAY ORAL 11/20/17 18:00 12/20/17 17:59 11/22/17 13:35 Ondansetron HCl (Zofran) 4 mg Q4H PRN IVP Nausea & Vomiting 11/09/17 21:30 12/09/17 21:29 Potassium Phosphate 30 mm/ Sodium Chloride 285 ml @ 47.5 mls/hr ONCE IV 11/22/17 10:00 11/22/17 15:59 11/22/17 11:19 Sennosides (Senokot) 1 tab DAILY PRN ORAL Constipation 11/09/17 21:30 12/09/17 21:29 Vancomycin HCl (Vanco rx to dose) 1 ea DAILY PRN MISC Per rx protocol 11/12/17 13:30 12/12/17 13:29 Vancomycin HCl 500 mg/Dextrose 110 ml @ 110 mls/hr Q48H IVPB 11/17/17 13:00 11/23/17 23:59 11/21/17 13:10 Kortney Quiñones M.D. Nov 22, 2017 13:54
--- NOTE | 2017-11-22 13:55 | Pulmonolgy Critical Care Note ---
Critical Care - Asmt/Plan Assessment/Plan: 1. SIRS/sepsis. 2. Shock, likely septic. 3. Profound dehydration. 4. Hypernatremia, with an initial sodium of 177. 5. Anion gap metabolic acidosis, lactic acidosis. 6. Acute kidney injury, likely on chronic kidney disease. 7. Hypercalcemia. 8. Urinary tract infection. 9. History of traumatic brain injury, dementia, and seizure disorder. 10. History of prior tracheostomy, status post takedown. 11. History of staghorn renal calculi with multiple UTIs, status post suprapubic catheter placement. 12. custodial resident. 13. Nonverbal at baseline. 14. Bed-bound. 15. Full Code. TREATMENT PLAN: 1. clinically doing poorly this afternoon check abg and cxr, pending abg, may need intubation as pt remains full code despite multiple comorbidities 2. S/P NGT, per GI for meds only, POLST needs updating, consent from PEG previously given by son 3. PRN O2, PRN HHN's 4. Continue ERTA and VANCO per ID, repeat CX's 5. F/U recs 6. Monitor MS, F/U neuro recs 7. Heparin subcutaneous for DVT prophylaxis. 8. The patient is a Full Code, POLST reviewed by myself, we continue to discuss goals of care further ---> PLEASE ARRANGE A FAMILY MEETING NEXT WEEK. greater than 35 minutes spent of critical care time with the patient, reviewe the records, notes, labs, images, orders and contact PCP Respiratory: CXR, ABG Time Spent (Minutes): 40 Notes Reviewed: motor tune up specialist Discussed with: nurses Critical Care - Objective Last 24 Hour Vital Signs Date Time Temp Pulse Resp B/P (MAP) Pulse Ox O2 Delivery O2 Flow Rate FiO2 11/22/17 12:00 Nasal Cannula 4.0 11/22/17 12:00 101 11/22/17 12:00 98.0 101 20 138/72 (94) 95 98.0 11/22/17 08:15 97 Nasal Cannula 4.0 36 11/22/17 08:15 Nasal Cannula 4.0 36 11/22/17 08:00 Nasal Cannula 4.0 11/22/17 08:00 97.8 99 20 118/66 (83) 93 97.8 11/22/17 08:00 82 11/22/17 04:00 Nasal Cannula 4.0 11/22/17 04:00 70 11/22/17 04:00 96.9 79 18 104/60 (75) 97 96.9 11/22/17 00:00 Nasal Cannula 4.0 11/22/17 00:00 96.1 88 22 110/61 (77) 95 96.1 11/21/17 23:38 119 11/21/17 23:29 80 11/21/17 23:02 63 11/21/17 20:00 98.6 74 20 99/55 (70) 97 98.6 11/21/17 20:00 76 11/21/17 20:00 Nasal Cannula 4.0 11/21/17 19:39 Nasal Cannula 4.0 36 11/21/17 19:39 97 Nasal Cannula 4.0 36 11/21/17 16:00 88 11/21/17 16:00 97.9 88 20 104/59 (74) 98 97.9 11/21/17 16:00 Nasal Cannula 4.0 Status: obtunded Condition: critical Lungs: rhonchi Heart: HR/BP unstable Abdomen: soft Extremities: edema Objective: op dry obtunded and does nto follow commands diffuse rhonchi and stridor noted tachy edematous Micro: Microbiology Date/Time Source Procedure Growth Status 11/21/17 14:30 Stool Clostridium difficile Toxin Assay - Final Complete 11/20/17 19:14 Urine,Clean Catch Urine Culture - Final Amy Albicans Complete Critical Care - Subjective ROS Limited/Unobtainable: Yes Condition: critical EKG Rhythm: Sinus Tachycardia FI02: 36 Sputum Amount: None Tube Feeding Amount: 40 I&O: Intake and Output 11/21/17 11/22/17 19:00 07:00 Intake Total 1300 ml 1036.6 ml Output Total 800 ml 800 ml Balance 500 ml 236.6 ml Free Water 150 ml 30 ml IV Total 760 ml 621.6 ml Tube Feeding 270 ml 385 ml Other 120 ml Output Urine Total 800 ml 700 ml Stool Total 100 ml # Bowel Movements 60 Subjective: obtudned stridorous and agonal respirations on TF op dry no family present CXR: no new cxr 11/20 reviewed Labs: Current Medications Medications (Trade) Dose Ordered Sig/Tay Route PRN Reason Start Time Stop Time Status Last Admin Dose Admin Acetaminophen (Tylenol) 650 mg Q6H PRN ORAL Mild Pain/Temp > 101 11/09/17 21:30 12/09/17 21:29 Albumin Human 500 ml @ 0 mls/hr Q0M IV 11/21/17 15:00 12/21/17 14:59 Dextrose 1,000 ml @ 100 mls/hr Q10H IV 11/22/17 09:10 12/22/17 09:09 11/22/17 09:52 Ertapenem 1 gm/ Sodium Chloride 55 ml @ 110 mls/hr Q24H IVPB 11/15/17 18:00 11/23/17 23:59 11/21/17 18:16 Fluconazole/ Sodium Chloride 100 ml @ 100 mls/hr Q24H IV 11/22/17 17:00 11/29/17 16:59 Folic Acid (Folate) 2 mg DAILY NG 11/22/17 09:00 12/20/17 20:59 11/22/17 09:53 Heparin Sodium (Porcine) (Heparin 5000 units/ml) 5,000 units EVERY 12 HOURS SUBQ 11/10/17 09:00 12/10/17 08:59 11/22/17 09:55 Lansoprazole (Prevacid) 30 mg DAILY NG 11/22/17 09:00 12/22/17 08:59 11/22/17 09:54 Levetiracetam 100 ml @ 400 mls/hr Q12HR IVPB 11/09/17 22:30 12/09/17 22:29 11/22/17 09:53 Midodrine (Pro-Amatine) 10 mg THREE TIMES A DAY ORAL 11/20/17 18:00 12/20/17 17:59 11/22/17 13:35 Ondansetron HCl (Zofran) 4 mg Q4H PRN IVP Nausea & Vomiting 11/09/17 21:30 12/09/17 21:29 Potassium Phosphate 30 mm/ Sodium Chloride 285 ml @ 47.5 mls/hr ONCE IV 11/22/17 10:00 11/22/17 15:59 11/22/17 11:19 Sennosides (Senokot) 1 tab DAILY PRN ORAL Constipation 11/09/17 21:30 12/09/17 21:29 Vancomycin HCl (Vanco rx to dose) 1 ea DAILY PRN MISC Per rx protocol 11/12/17 13:30 12/12/17 13:29 Vancomycin HCl 500 mg/Dextrose 110 ml @ 110 mls/hr Q48H IVPB 11/17/17 13:00 11/23/17 23:59 11/21/17 13:10 Laboratory Tests Test 11/22/17 03:55 White Blood Count 13.2 K/UL (4.8-10.8) H Red Blood Count 3.17 M/UL (4.20-5.40) L Hemoglobin 9.2 G/DL (12.0-16.0) L Hematocrit 27.9 % (37.0-47.0) L Mean Corpuscular Volume 88 FL (80-99) Mean Corpuscular Hemoglobin 29.1 PG (27.0-31.0) Mean Corpuscular Hemoglobin Concent 33.2 G/DL (32.0-36.0) Red Cell Distribution Width 14.9 % (11.6-14.8) H Platelet Count 205 K/UL (150-450) Mean Platelet Volume 6.9 FL (6.5-10.1) Neutrophils (%) (Auto) 82.2 % (45.0-75.0) H Lymphocytes (%) (Auto) 13.1 % (20.0-45.0) L Monocytes (%) (Auto) 3.8 % (1.0-10.0) Eosinophils (%) (Auto) 0.6 % (0.0-3.0) Basophils (%) (Auto) 0.4 % (0.0-2.0) Sodium Level 161 MMOL/L (136-145) *H Potassium Level 3.3 MMOL/L (3.5-5.1) L Chloride Level 127 MMOL/L (98-107) H Carbon Dioxide Level 25 MMOL/L (21-32) Anion Gap 9 mmol/L (5-15) Blood Urea Nitrogen 24 mg/dL (7-18) H Creatinine 2.0 MG/DL (0.55-1.30) H Estimat Glomerular Filtration Rate 26.0 mL/min (>60) Glucose Level 101 MG/DL (74-106) Calcium Level 8.8 MG/DL (8.5-10.1) Phosphorus Level 1.5 MG/DL (2.5-4.9) L Magnesium Level 2.2 MG/DL (1.8-2.4) Racquel Fam DO Nov 22, 2017 13:55
--- NOTE | 2017-11-22 14:56 | Diagnostic Imaging Report ---
EXAM: XR Chest, 1 View CLINICAL HISTORY: COUGH TECHNIQUE: Frontal view of the chest. COMPARISON: No relevant prior studies available. FINDINGS: Lungs: Bilateral pulmonary opacities. Pleural space: Unremarkable. No pneumothorax. Heart: Large cardiomediastinal silhouette. Mediastinum: See above. Bones/joints: No acute fracture. Tubes, lines and devices: Probable ureteral stents. Shunt tubing Enteric tube in the stomach. Upper abdomen: Gaseous distention of the stomach. IMPRESSION: Bilateral pulmonary opacities. Could be from edema and or pneumonia.
[2017-11-22 16:00] VITALS: BP 102/60
--- NOTE | 2017-11-22 16:15 | Electroencephalogram ---
DATE OF PROCEDURE: 11/21/2017 REQUESTING PHYSICIAN: Jose Montalvo M.D. HISTORY: This EEG was performed on a 52-year-old lady with history of severe traumatic brain injury with a large craniectomy on the right side. The patient was hospitalized for an alteration in mental state thought to be due to sepsis and renal dysfunction which improved. She continued to exhibit episodes of alteration in her level of arousal and thus this EEG was performed to evaluate the patient for the degree and type of cerebral dysfunction and to exclude ongoing ictal or interictal phenomena. TECHNICAL NOTE: This EEG was performed on a [employer] with electrodes placed on the scalp according to the International 10-20 system. [id number] and [id number] montages were used. The EEG was technically satisfactory and was performed in the awake and drowsy states. OBSERVATIONS: In both the awake and drowsy states, the background activity consisted of 4-5 Hz theta and 1.5-2 Hz delta activity. Throughout the tracing, breech artifact was observed over the right frontocentrotemporoparietal area. A few episodes of rhythmic sharp discharges, building up into a crescendo and then a decrescendo, lasting for up to 120 seconds, phase reversing over the F4 and C4 electrodes were seen. These episodes were not associated with any clinical correlation. IMPRESSION: This is an abnormal EEG characterized by: 1. Slowing of the background in the 4-5 Hz theta and 1.5-2 Hz delta range in both the awake and drowsy states. 2. The presence of a few episodes of rhythmic sharp discharges building up into a crescendo and then a decrescendo lasting for up to 120 seconds and phase reversing over the F4-C4 electrodes seen throughout the tracing. COMMENT: This study is consistent with: 1. Generalized cerebral dysfunction of a moderately severe degree. 2. The presence of right frontocentral, subclinical, ictal, phenomena, with electrographic seizures with no clinical correlate. Surya Ramos M.D., M.S.P.H. DR: Robert JOB#: [id number] CC: VERA
--- NOTE | 2017-11-22 16:15 | Neurology Progress Note ---
Interim History Interim History Interim History Ms. Guaman is non-verbal today. She she is awake but not alert. She is cognitively impoverished. She is motorically challenged. As per her nurse there has been no change in her neurologic state. Review of Systems Neuro Review of Systems Unable to obtain. Objective Physical Exam Last Vital Signs Date Time Temp Pulse Resp B/P (MAP) Pulse Ox O2 Delivery O2 Flow Rate FiO2 11/22/17 12:00 Nasal Cannula 4.0 11/22/17 12:00 101 11/22/17 12:00 98.0 20 138/72 (94) 95 98.0 11/22/17 08:15 36 Laboratory Tests Test 11/22/17 03:55 11/22/17 13:51 White Blood Count 13.2 K/UL (4.8-10.8) H Red Blood Count 3.17 M/UL (4.20-5.40) L Hemoglobin 9.2 G/DL (12.0-16.0) L Hematocrit 27.9 % (37.0-47.0) L Mean Corpuscular Volume 88 FL (80-99) Mean Corpuscular Hemoglobin 29.1 PG (27.0-31.0) Mean Corpuscular Hemoglobin Concent 33.2 G/DL (32.0-36.0) Red Cell Distribution Width 14.9 % (11.6-14.8) H Platelet Count 205 K/UL (150-450) Mean Platelet Volume 6.9 FL (6.5-10.1) Neutrophils (%) (Auto) 82.2 % (45.0-75.0) H Lymphocytes (%) (Auto) 13.1 % (20.0-45.0) L Monocytes (%) (Auto) 3.8 % (1.0-10.0) Eosinophils (%) (Auto) 0.6 % (0.0-3.0) Basophils (%) (Auto) 0.4 % (0.0-2.0) Sodium Level 161 MMOL/L (136-145) *H Potassium Level 3.3 MMOL/L (3.5-5.1) L Chloride Level 127 MMOL/L (98-107) H Carbon Dioxide Level 25 MMOL/L (21-32) Anion Gap 9 mmol/L (5-15) Blood Urea Nitrogen 24 mg/dL (7-18) H Creatinine 2.0 MG/DL (0.55-1.30) H Estimat Glomerular Filtration Rate 26.0 mL/min (>60) Glucose Level 101 MG/DL (74-106) Calcium Level 8.8 MG/DL (8.5-10.1) Phosphorus Level 1.5 MG/DL (2.5-4.9) L Magnesium Level 2.2 MG/DL (1.8-2.4) Arterial Blood pH 7.339 (7.350-7.450) Arterial Blood Partial Pressure CO2 50.0 mmHg (35.0-45.0) H Arterial Blood Partial Pressure O2 77.0 mmHg (75.0-100.0) Arterial Blood HCO3 26.3 mmol/L (22.0-26.0) H Arterial Blood Oxygen Saturation 93.7 % (92.0-98.0) Arterial Blood Base Excess 0.2 Yonathan Test Positive Neurologic Exam Objective PHYSICAL EXAMINATION: GENERAL: She is a well-developed and well-nourished lady, lying in bed , in no acute distress. HEAD: Normocephalic with right craniectomy defect. EENT: Examination benign. NECK: No neck rigidity was observed. NEUROLOGICAL EXAMINATION: MENTAL STATUS EXAMINATION: She awake but not alert. She was non-verbal. Further mental status testing was impossible. SPEECH: She was mute. LANGUAGE: Could not be tested. CRANIAL NERVE EXAMINATION: II: She did blink to threat. III, IV & : The eyes were dysconjugate. External ocular movements were present on oculocephalic maneuvers. The pupils were 3 mm in diameter, equal, round, regular, and reactive sluggishly to light. V & VII: Corneal reflexes were present, but brisker on the right than on the left. VIII: She did not respond to sounds and had no nystagmus. IX & X: The gag reflex was absent. IX: Sternocleidomastoids and trapezii did function minimally on applying deep painful stimuli. XII: Tongue in the midline. MOTOR SYSTEM: The tone was increased in both lower extremities with spasticity. The tone was relatively normal in the right upper extremity but was diminished in the left upper extremity. Examination of muscle mass revealed wasting of the left upper and lower extremities and in addition a flexion contracture at the elbow. The examination of power was impossible to perform accurately as she did not move her left side at all and moved her right side minimally in a nonpurposeful manner. SENSORY EXAMINATION: She responded to deep pain on the right side but not the left. REFLEXES: 2+ on the left and 2++ on the right at the biceps, triceps, brachioradialis, and knees, 0 at both ankles. The plantar responses were extensor bilaterally. COORDINATION, STANCE & GAIT: Could not be tested. Impression/Recommendations Diagnostic Impression 1. Ms. Yumiko Guaman is a 52-year-old, lady, of unknown handedness, who does have a past history of severe brain trauma with a right-sided craniectomy and significant right brain encephalomalacia. She also has a history of a seizure disorder that is undefined. She has a left plegia and prior episodes of respiratory failure, urinary tract infections, and multiple episodes of sepsis. She was hospitalized on 11/09/2017 for a urinary tract infection associated with sepsis but her mental state improved with treatment of those conditions. on 11/20/17 there was a sudden decline in her level of arousal. 2. She is non-verbal today. She she is awake but not alert. She is cognitively impoverished. She is motorically challenged. As per her nurse there has been no change in her neurologic state. 3. On neurological examination at this time, she does demonstrate a right-sided craniectomy. She is awake but not alert. She is non-verbal. Further mental status testing is impossible. Language cannot be tested. She does blink to visual threat. The corneal reflexes are diminished on the left side compared to the right. She has left upper extremity greater than lower extremity contractures and left-sided plegia and significant right-sided hemiparesis. She only responds to deep pain on the right side with minimal withdrawal but not on the left side. The deep tendon reflexes are brisker on the right side compared to the left and she has extensor plantar responses bilaterally. 4. CT scan of the brain without contrast performed on 11/20/2017 revealed a large right convexity craniectomy and extensive underlying temporal and parietal encephalomalacia. There was also encephalomalacia of the right cerebellum. There was a left frontal craniotomy defect with overlying mesh. There was no significant underlying parenchymal abnormality on the left side. She also had right-sided ventriculostomy. No acute pathology was noted. 5. Laboratory data revealed that she was anemic with a hemoglobin of 10.5 G. Her WBC count was 10,000 but she had a left-sided shift with 80% polymorphonuclear leukocytes. The chemistry panel revealed a creatinine elevated to 2.0. The ammonia was minimally elevated at 34. The Vitamin B12 level and TSH were normal. The Folate was minimally low at 3.9. The Urinalysis that was done on 11/09/2017 revealed 3+ leukocyte esterase, 40-60 RBCs and 40-60 WBCs per high-power field. Her latest arterial blood gas revealed a pH of 7.35, pCO2 of 42, and pO2 of 60. 6. The EEG done on 11/21/17 revealed severe generalized cerebral dysfunction and multiple electrographic seizures emanating from the right fronto-central region sometimes lasting al long as 120 seconds. 7. The patient's history, neurological examination, and laboratory data and imaging studies are most compatible with worsening of a toxic metabolic encephalopathy and in addition subclinical electrographic seizures emanating from the right fronto-central region. Recommendations 1. Continue present management. 2. Continue present therapeutic management. 3. Continue aggressive antibiotic treatment. 4. Continue to correct the patient's toxic metabolic imbalances. 5. Increase Keppra to 1000 mg IV q 12 hours. 6. Observe closely. Roseann Barnes M.D., M.S.P.Kathia. ROSEANN BARNES Nov 22, 2017 16:15
[2017-11-22] MEDS: Ertapenem 1 GM in NS 55 ML IVPB SCH (17:15)
--- NOTE | 2017-11-22 18:29 | General Progress Note ---
Assessment/Plan Assessment/Plan Assessment (1) Electrolyte imbalance ICD Codes: E87.8 - Other disorders of electrolyte and fluid balance, not elsewhere classified SNOMED: 594675287 (2) Encounter for PEG (percutaneous endoscopic gastrostomy) - dysphagia ICD Codes: Z43.1 - Encounter for attention to gastrostomy SNOMED: 344667159, 970507774 (3) Dehydration ICD Codes: E86.0 - Dehydration SNOMED: 08892278 (4) Dehydration, severe ICD Codes: E86.0 - Dehydration SNOMED: 716097289 Status: stable . 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 PEG when respiratory status stable NGT for meds only IV hydration electrolyte correction per Nephro ppi bowel regime fu labs Subjective Allergies: Coded Allergies: CEFEPIME (Unverified Allergy, Unknown, 11/09/17) Subjective Nonverbal tolerating TF Objective Last 24 Hour Vital Signs Date Time Temp Pulse Resp B/P (MAP) Pulse Ox O2 Delivery O2 Flow Rate FiO2 11/22/17 16:33 89 24 97 Facial 35 11/22/17 16:32 90 22 Bi-pap 35 11/22/17 16:00 Nasal Cannula 4.0 11/22/17 16:00 86 11/22/17 16:00 97.5 97 20 102/60 (74) 93 97.5 11/22/17 12:00 Nasal Cannula 4.0 11/22/17 12:00 101 11/22/17 12:00 98.0 101 20 138/72 (94) 95 98.0 11/22/17 08:15 97 Nasal Cannula 4.0 36 11/22/17 08:15 Nasal Cannula 4.0 36 11/22/17 08:00 Nasal Cannula 4.0 11/22/17 08:00 97.8 99 20 118/66 (83) 93 97.8 11/22/17 08:00 82 11/22/17 04:00 Nasal Cannula 4.0 11/22/17 04:00 70 11/22/17 04:00 96.9 79 18 104/60 (75) 97 96.9 11/22/17 00:00 Nasal Cannula 4.0 11/22/17 00:00 96.1 88 22 110/61 (77) 95 96.1 11/21/17 23:38 119 11/21/17 23:29 80 9/21/18 23:02 63 11/21/17 20:00 98.6 74 20 99/55 (70) 97 98.6 11/21/17 20:00 76 11/21/17 20:00 Nasal Cannula 4.0 11/21/17 19:39 Nasal Cannula 4.0 36 11/21/17 19:39 97 Nasal Cannula 4.0 36 Intake and Output 11/21/17 11/22/17 19:00 07:00 Intake Total 1300 ml 1096.6 ml Output Total 800 ml 800 ml Balance 500 ml 296.6 ml Free Water 150 ml 50 ml IV Total 760 ml 621.6 ml Tube Feeding 270 ml 425 ml Other 120 ml Output Urine Total 800 ml 700 ml Stool Total 100 ml # Bowel Movements 60 Laboratory Tests 11/22/17 03:55: White Blood Count 13.2H, Red Blood Count 3.17L, Hemoglobin 9.2L, Hematocrit 27.9L, Mean Corpuscular Volume 88, Mean Corpuscular Hemoglobin 29.1, Mean Corpuscular Hemoglobin Concent 33.2, Red Cell Distribution Width 14.9H, Platelet Count 205, Mean Platelet Volume 6.9, Neutrophils (%) (Auto) 82.2H, Lymphocytes (%) (Auto) 13.1L, Monocytes (%) (Auto) 3.8, Eosinophils (%) (Auto) 0.6, Basophils (%) (Auto) 0.4, Sodium Level 161*H, Potassium Level 3.3L, Chloride Level 127H, Carbon Dioxide Level 25, Anion Gap 9, Blood Urea Nitrogen 24H, Creatinine 2.0H, Estimat Glomerular Filtration Rate 26.0, Glucose Level 101 , Calcium Level 8.8, Phosphorus Level 1.5L, Magnesium Level 2.2 11/22/17 13:51: Arterial Blood pH 7.339L, Arterial Blood Partial Pressure CO2 50.0H, Arterial Blood Partial Pressure O2 77.0, Arterial Blood HCO3 26.3H, Arterial Blood Oxygen Saturation 93.7, Arterial Blood Base Excess 0.2, Yonathan Test Positive Height (Feet): 5 Height (Inches): 2.00 Weight (Pounds): 128 Objective Elderly WW NCAT supple CTA RRR abd soft, (+) Suprapubic cath rectal tube OBS Rafa Marion MD Nov 22, 2017 18:29
--- NOTE | 2017-11-22 19:10 | Urology Progress Note ---
Assessment/Plan Assessment/Plan 1. History of hydronephrosis that is chronic. 2. Renal insufficiency, acute on chronic, labile. 3. Hematuria. 4. Pyuria/UTI/colonized. 5. Proteinuria. 6. Urinary retention with chronic suprapubic tube. 7. Neurogenic bladder. sp tube indwelling, last exchanged 11/18 hand irrigated, patent abx as ordered, diflucan monitor renal fxn need old recs indwelling ureteral stents can be addressed by pt's outside urologist once medically more stable Subjective Allergies: Coded Allergies: CEFEPIME (Unverified Allergy, Unknown, 11/09/17) Subjective all noted Objective Last 24 Hour Vital Signs Date Time Temp Pulse Resp B/P (MAP) Pulse Ox O2 Delivery O2 Flow Rate FiO2 11/22/17 19:02 76 16 98 Facial 35 11/22/17 19:01 Bi-pap 35 11/22/17 19:01 98 Bi-pap 35 11/22/17 16:33 89 24 97 Facial 35 11/22/17 16:32 90 22 Bi-pap 35 11/22/17 16:00 Nasal Cannula 4.0 11/22/17 16:00 86 11/22/17 16:00 97.5 97 20 102/60 (74) 93 97.5 11/22/17 12:00 Nasal Cannula 4.0 11/22/17 12:00 101 11/22/17 12:00 98.0 101 20 138/72 (94) 95 98.0 11/22/17 08:15 97 Nasal Cannula 4.0 36 11/22/17 08:15 Nasal Cannula 4.0 36 11/22/17 08:00 Nasal Cannula 4.0 11/22/17 08:00 97.8 99 20 118/66 (83) 93 97.8 11/22/17 08:00 82 11/22/17 04:00 Nasal Cannula 4.0 11/22/17 04:00 70 11/22/17 04:00 96.9 79 18 104/60 (75) 97 96.9 11/22/17 00:00 Nasal Cannula 4.0 11/22/17 00:00 96.1 88 22 110/61 (77) 95 96.1 11/21/17 23:38 119 11/21/17 23:29 80 11/21/17 23:02 63 11/21/17 20:00 98.6 74 20 99/55 (70) 97 98.6 11/21/17 20:00 76 11/21/17 20:00 Nasal Cannula 4.0 11/21/17 19:39 Nasal Cannula 4.0 36 11/21/17 19:39 97 Nasal Cannula 4.0 36 Intake and Output 11/21/17 11/22/17 19:00 07:00 Intake Total 1300 ml 1096.6 ml Output Total 800 ml 800 ml Balance 500 ml 296.6 ml Free Water 150 ml 50 ml IV Total 760 ml 621.6 ml Tube Feeding 270 ml 425 ml Other 120 ml Output Urine Total 800 ml 700 ml Stool Total 100 ml # Bowel Movements 60 Microbiology Date/Time Source Procedure Growth Status 11/13/17 15:10 Blood Blood Culture - Final NO GROWTH AFTER 5 DAYS Complete 11/09/17 20:25 Nasal Nares MRSA Culture - Final Staphylococcus Aureus - Mrsa Complete 11/21/17 14:30 Stool Clostridium difficile Toxin Assay - Final Complete 11/20/17 19:14 Urine,Clean Catch Urine Culture - Final Amy Albicans Complete 11/10/17 20:25 Rectum - Final NO CARBAPENEM-RESISTANT ENTEROBACTERI... Complete Current Medications Medications (Trade) Dose Ordered Sig/Tay Route PRN Reason Start Time Stop Time Status Last Admin Dose Admin Acetaminophen (Tylenol) 650 mg Q6H PRN ORAL Mild Pain/Temp > 101 11/09/17 21:30 12/09/17 21:29 Albumin Human 500 ml @ 0 mls/hr Q0M IV 11/21/17 15:00 12/21/17 14:59 Dextrose 1,000 ml @ 100 mls/hr Q10H IV 11/22/17 09:10 12/22/17 09:09 11/22/17 09:52 Ertapenem 1 gm/ Sodium Chloride 55 ml @ 110 mls/hr Q24H IVPB 11/15/17 18:00 11/23/17 23:59 11/22/17 17:15 Fluconazole/ Sodium Chloride 100 ml @ 100 mls/hr Q24H IV 11/22/17 17:00 11/29/17 16:59 11/22/17 17:17 Folic Acid (Folate) 2 mg DAILY NG 11/22/17 09:00 12/20/17 20:59 11/22/17 09:53 Heparin Sodium (Porcine) (Heparin 5000 units/ml) 5,000 units EVERY 12 HOURS SUBQ 11/10/17 09:00 12/10/17 08:59 11/22/17 09:55 Lansoprazole (Prevacid) 30 mg DAILY NG 11/22/17 09:00 12/22/17 08:59 11/22/17 09:54 Levetiracetam 100 ml @ 400 mls/hr Q12HR IVPB 11/22/17 21:00 12/22/17 20:59 Midodrine (Pro-Amatine) 10 mg THREE TIMES A DAY ORAL 11/20/17 18:00 12/20/17 17:59 11/22/17 17:16 Ondansetron HCl (Zofran) 4 mg Q4H PRN IVP Nausea & Vomiting 11/09/17 21:30 12/09/17 21:29 Sennosides (Senokot) 1 tab DAILY PRN ORAL Constipation 11/09/17 21:30 12/09/17 21:29 Vancomycin HCl (Vanco rx to dose) 1 ea DAILY PRN MISC Per rx protocol 11/12/17 13:30 12/12/17 13:29 Vancomycin HCl 500 mg/Dextrose 110 ml @ 110 mls/hr Q48H IVPB 11/17/17 13:00 11/23/17 23:59 11/21/17 13:10 Laboratory Tests 11/22/17 03:55: White Blood Count 13.2H, Red Blood Count 3.17L, Hemoglobin 9.2L, Hematocrit 27.9L, Mean Corpuscular Volume 88, Mean Corpuscular Hemoglobin 29.1, Mean Corpuscular Hemoglobin Concent 33.2, Red Cell Distribution Width 14.9H, Platelet Count 205, Mean Platelet Volume 6.9, Neutrophils (%) (Auto) 82.2H, Lymphocytes (%) (Auto) 13.1L, Monocytes (%) (Auto) 3.8, Eosinophils (%) (Auto) 0.6, Basophils (%) (Auto) 0.4, Sodium Level 161*H, Potassium Level 3.3L, Chloride Level 127H, Carbon Dioxide Level 25, Anion Gap 9, Blood Urea Nitrogen 24H, Creatinine 2.0H, Estimat Glomerular Filtration Rate 26.0, Glucose Level 101 , Calcium Level 8.8, Phosphorus Level 1.5L, Magnesium Level 2.2 11/22/17 13:51: Arterial Blood pH 7.339L, Arterial Blood Partial Pressure CO2 50.0H, Arterial Blood Partial Pressure O2 77.0, Arterial Blood HCO3 26.3H, Arterial Blood Oxygen Saturation 93.7, Arterial Blood Base Excess 0.2, Yonathan Test Positive Height (Feet): 5 Height (Inches): 2.00 Weight (Pounds): 128 Objective exam stable WILBER GALINDO Nov 22, 2017 19:10
[2017-11-22 20:00] VITALS: BP 101/65
[2017-11-22] MEDS: levETIRAcetam 1,000mg/NS100ml 100 ML IVPB SCH (20:35)
[2017-11-23] VITALS (7 sets, daily range): BP systolic 94–122; BP diastolic 43–76
[2017-11-23 05:09] LABS: BASOPHILS % (AUTO) 0.7 % (0.0-2.0); EOSINOPHILS % (AUTO) 1.4 % (0.0-3.0); HEMATOCRIT 26.4 % (37.0-47.0); HEMOGLOBIN 8.8 G/DL (12.0-16.0); LYMPHOCYTES % (AUTO) 20.5 % (20.0-45.0); MEAN CORPUSCULAR VOLUME 89 FL (80-99); MONOCYTES % (AUTO) 5.2 % (1.0-10.0); NEUTROPHILS % (AUTO) 72.4 % (45.0-75.0); PLATELET COUNT 167 K/UL (150-450); RED BLOOD COUNT 2.98 M/UL (4.20-5.40); RED CELL DISTRIBUTION WIDTH 15.4 % (11.6-14.8); WHITE BLOOD COUNT 8.1 K/UL (4.8-10.8)
[2017-11-23 05:24] LABS: ANION GAP 8 mmol/L (5-15); BLOOD UREA NITROGEN 27 mg/dL (7-18); CALCIUM 8.7 MG/DL (8.5-10.1); CARBON DIOXIDE 27 MMOL/L (21-32); CHLORIDE 126 MMOL/L (98-107); CREATININE 1.9 MG/DL (0.55-1.30); POTASSIUM 3.7 MMOL/L (3.5-5.1); SODIUM 160 MMOL/L (136-145)
[2017-11-23] MEDS: Midodrine 10mg tab ORAL SCH ×3 (08:46→17:23)
[2017-11-23] MEDS: levETIRAcetam 1,000mg/NS100ml 100 ML IVPB SCH ×2 (08:48→20:31)
[2017-11-23] MEDS: Heparin 5000 units/ml inj SUBQ SCH ×2 (08:53→20:33)
[2017-11-23] MEDS ORDERED: Tubing IV Secondary IV ONE ×2 (09:05→14:55)
--- NOTE | 2017-11-23 10:08 | Urology Progress Note ---
Assessment/Plan Assessment/Plan 1. History of hydronephrosis that is chronic. 2. Renal insufficiency, acute on chronic, labile. 3. Hematuria. 4. Pyuria/UTI/colonized. 5. Proteinuria. 6. Urinary retention with chronic suprapubic tube. 7. Neurogenic bladder. sp tube indwelling, last exchanged 11/18 hand irrigated, patent abx as ordered, diflucan monitor renal fxn need old recs indwelling ureteral stents can be addressed by pt's outside urologist once medically more stable Subjective Allergies: Coded Allergies: CEFEPIME (Unverified Allergy, Unknown, 11/09/17) Subjective all noted Objective Last 24 Hour Vital Signs Date Time Temp Pulse Resp B/P (MAP) Pulse Ox O2 Delivery O2 Flow Rate FiO2 11/23/17 09:02 63 20 100 Facial 35 11/23/17 08:00 Bi-pap 11/23/17 08:00 96.9 64 20 94/64 (74) 100 96.9 11/23/17 07:08 65 19 99 Facial 35 11/23/17 07:08 Bi-pap 35 11/23/17 07:08 99 Bi-pap 35 11/23/17 04:51 70 16 99 Facial 35 11/23/17 04:00 Bi-pap 11/23/17 04:00 96.9 81 20 114/62 (79) 96 96.9 11/23/17 04:00 68 11/23/17 03:01 69 16 98 Facial 35 11/23/17 00:51 76 21 99 Facial 35 11/23/17 00:00 66 11/23/17 00:00 Bi-pap 11/23/17 00:00 96.4 82 22 122/76 (91) 99 96.4 11/22/17 22:53 74 21 98 Facial 35 11/22/17 20:49 68 19 96 Facial 35 11/22/17 20:00 74 11/22/17 20:00 Bi-pap 11/22/17 20:00 96.5 75 18 101/65 (77) 98 96.5 11/22/17 19:02 76 16 98 Facial 35 11/22/17 19:01 Bi-pap 35 11/22/17 19:01 98 Bi-pap 35 11/22/17 16:33 89 24 97 Facial 35 11/22/17 16:32 90 22 Bi-pap 35 11/22/17 16:00 Nasal Cannula 4.0 11/22/17 16:00 86 11/22/17 16:00 97.5 97 20 102/60 (74) 93 97.5 11/22/17 12:00 Nasal Cannula 4.0 11/22/17 12:00 101 11/22/17 12:00 98.0 101 20 138/72 (94) 95 98.0 Intake and Output 11/22/17 11/23/17 19:00 07:00 Intake Total 2005 ml 650 ml Output Total 1300 ml 1400 ml Balance 705 ml -750 ml Free Water 70 ml 90 ml IV Total 1450 ml Tube Feeding 485 ml 560 ml Output Urine Total 1000 ml 1300 ml Stool Total 300 ml 100 ml Microbiology Date/Time Source Procedure Growth Status 11/13/17 15:10 Blood Blood Culture - Final NO GROWTH AFTER 5 DAYS Complete 11/09/17 20:25 Nasal Nares MRSA Culture - Final Staphylococcus Aureus - Mrsa Complete 11/21/17 14:30 Stool Clostridium difficile Toxin Assay - Final Complete 11/20/17 19:14 Urine,Clean Catch Urine Culture - Final Amy Albicans Complete 11/10/17 20:25 Rectum - Final NO CARBAPENEM-RESISTANT ENTEROBACTERI... Complete Current Medications Medications (Trade) Dose Ordered Sig/Tay Route PRN Reason Start Time Stop Time Status Last Admin Dose Admin Acetaminophen (Tylenol) 650 mg Q6H PRN ORAL Mild Pain/Temp > 101 11/09/17 21:30 12/09/17 21:29 Albumin Human 500 ml @ 0 mls/hr Q0M IV 11/21/17 15:00 12/21/17 14:59 Dextrose 1,000 ml @ 100 mls/hr Q10H IV 11/22/17 09:10 12/22/17 09:09 11/23/17 05:47 Ertapenem 1 gm/ Sodium Chloride 55 ml @ 110 mls/hr Q24H IVPB 11/15/17 18:00 11/23/17 23:59 11/22/17 17:15 Fluconazole/ Sodium Chloride 100 ml @ 100 mls/hr Q24H IV 11/22/17 17:00 11/29/17 16:59 11/22/17 17:17 Folic Acid (Folate) 2 mg DAILY NG 11/22/17 09:00 12/20/17 20:59 11/23/17 08:46 Heparin Sodium (Porcine) (Heparin 5000 units/ml) 5,000 units EVERY 12 HOURS SUBQ 11/10/17 09:00 12/10/17 08:59 11/23/17 08:53 Lansoprazole (Prevacid) 30 mg DAILY NG 11/22/17 09:00 12/22/17 08:59 11/23/17 08:46 Levetiracetam 100 ml @ 400 mls/hr Q12HR IVPB 11/22/17 21:00 12/22/17 20:59 11/23/17 08:48 Midodrine (Pro-Amatine) 10 mg THREE TIMES A DAY ORAL 11/20/17 18:00 12/20/17 17:59 11/23/17 08:46 Ondansetron HCl (Zofran) 4 mg Q4H PRN IVP Nausea & Vomiting 11/09/17 21:30 12/09/17 21:29 Sennosides (Senokot) 1 tab DAILY PRN ORAL Constipation 11/09/17 21:30 12/09/17 21:29 Vancomycin HCl (Vanco rx to dose) 1 ea DAILY PRN MISC Per rx protocol 11/12/17 13:30 12/12/17 13:29 Vancomycin HCl 500 mg/Dextrose 110 ml @ 110 mls/hr Q48H IVPB 11/17/17 13:00 11/23/17 23:59 11/21/17 13:10 Laboratory Tests 11/22/17 13:51: Arterial Blood pH 7.339L, Arterial Blood Partial Pressure CO2 50.0H, Arterial Blood Partial Pressure O2 77.0, Arterial Blood HCO3 26.3H, Arterial Blood Oxygen Saturation 93.7, Arterial Blood Base Excess 0.2, Yonathan Test Positive 11/23/17 03:20: White Blood Count 8.1, Red Blood Count 2.98L, Hemoglobin 8.8L, Hematocrit 26.4L , Mean Corpuscular Volume 89, Mean Corpuscular Hemoglobin 29.6, Mean Corpuscular Hemoglobin Concent 33.4, Red Cell Distribution Width 15.4H, Platelet Count 167, Mean Platelet Volume 6.8, Neutrophils (%) (Auto) 72.4, Lymphocytes (%) (Auto) 20.5, Monocytes (%) (Auto) 5.2, Eosinophils (%) (Auto) 1.4, Basophils (%) (Auto) 0.7, Sodium Level 160H, Potassium Level 3.7, Chloride Level 126H, Carbon Dioxide Level 27, Anion Gap 8, Blood Urea Nitrogen 27H, Creatinine 1.9H, Estimat Glomerular Filtration Rate 27.5, Glucose Level 95, Calcium Level 8.7, Pro-B-Type Natriuretic Peptide 4009H 11/23/17 08:02: Arterial Blood pH 7.404, Arterial Blood Partial Pressure CO2 38.4, Arterial Blood Partial Pressure O2 87.9, Arterial Blood HCO3 23.5, Arterial Blood Oxygen Saturation 95.5, Arterial Blood Base Excess -1.1, Yonathan Test Positive Height (Feet): 5 Height (Inches): 2.00 Weight (Pounds): 128 Objective exam stable WILBER GALINDO Nov 23, 2017 10:08
--- NOTE | 2017-11-23 10:23 | Nephrology Progress Note ---
Assessment/Plan Problem List: (1) Acute renal failure (ARF) (2) Dehydration with hypernatremia (3) Severe sepsis (4) Shock (5) Dehydration, severe (6) Hypotension Assessment Acute kidney injury, likely on chronic kidney disease. Cr lowering Hypernatremia, with an initial sodium of 177. Na lowering Profound dehydration. improving Shock, likely septic. Hypercalcemia. on presentation Urinary tract infection. Has supraPubic cath History of traumatic brain injury, dementia, and seizure disorder. History of staghorn renal calculi with multiple UTIs, status post Plan NGT and Midodrine- K supplements as needed D5W Albumin bolus PRN KCL, Mag , Phos as needed Antibiotics Anemia yarbrough Monitor renal parameters- Avoid Nephrotoxics Due PEG- Consent taken when stable Subjective ROS Limited/Unobtainable: Yes Objective Objective Last 24 Hour Vital Signs Date Time Temp Pulse Resp B/P (MAP) Pulse Ox O2 Delivery O2 Flow Rate FiO2 11/23/17 09:02 63 20 100 Facial 35 11/23/17 08:00 59 11/23/17 08:00 Bi-pap 11/23/17 08:00 96.9 64 20 94/64 (74) 100 96.9 11/23/17 07:08 65 19 99 Facial 35 11/23/17 07:08 Bi-pap 35 11/23/17 07:08 99 Bi-pap 35 11/23/17 04:51 70 16 99 Facial 35 11/23/17 04:00 Bi-pap 11/23/17 04:00 96.9 81 20 114/62 (79) 96 96.9 11/23/17 04:00 68 11/23/17 03:01 69 16 98 Facial 35 11/23/17 00:51 76 21 99 Facial 35 11/23/17 00:00 66 11/23/17 00:00 Bi-pap 11/23/17 00:00 96.4 82 22 122/76 (91) 99 96.4 11/22/17 22:53 74 21 98 Facial 35 11/22/17 20:49 68 19 96 Facial 35 11/22/17 20:00 74 11/22/17 20:00 Bi-pap 11/22/17 20:00 96.5 75 18 101/65 (77) 98 96.5 11/22/17 19:02 76 16 98 Facial 35 11/22/17 19:01 Bi-pap 35 11/22/17 19:01 98 Bi-pap 35 11/22/17 16:33 89 24 97 Facial 35 11/22/17 16:32 90 22 Bi-pap 35 11/22/17 16:00 Nasal Cannula 4.0 11/22/17 16:00 86 11/22/17 16:00 97.5 97 20 102/60 (74) 93 97.5 11/22/17 12:00 Nasal Cannula 4.0 11/22/17 12:00 101 11/22/17 12:00 98.0 101 20 138/72 (94) 95 98.0 Intake and Output 11/22/17 11/23/17 19:00 07:00 Intake Total 2005 ml 650 ml Output Total 1300 ml 1400 ml Balance 705 ml -750 ml Free Water 70 ml 90 ml IV Total 1450 ml Tube Feeding 485 ml 560 ml Output Urine Total 1000 ml 1300 ml Stool Total 300 ml 100 ml Laboratory Tests 11/22/17 13:51: Arterial Blood pH 7.339L, Arterial Blood Partial Pressure CO2 50.0H, Arterial Blood Partial Pressure O2 77.0, Arterial Blood HCO3 26.3H, Arterial Blood Oxygen Saturation 93.7, Arterial Blood Base Excess 0.2, Yonathan Test Positive 11/23/17 03:20: White Blood Count 8.1, Red Blood Count 2.98L, Hemoglobin 8.8L, Hematocrit 26.4L , Mean Corpuscular Volume 89, Mean Corpuscular Hemoglobin 29.6, Mean Corpuscular Hemoglobin Concent 33.4, Red Cell Distribution Width 15.4H, Platelet Count 167, Mean Platelet Volume 6.8, Neutrophils (%) (Auto) 72.4, Lymphocytes (%) (Auto) 20.5, Monocytes (%) (Auto) 5.2, Eosinophils (%) (Auto) 1.4, Basophils (%) (Auto) 0.7, Sodium Level 160H, Potassium Level 3.7, Chloride Level 126H, Carbon Dioxide Level 27, Anion Gap 8, Blood Urea Nitrogen 27H, Creatinine 1.9H, Estimat Glomerular Filtration Rate 27.5, Glucose Level 95, Calcium Level 8.7, Pro-B-Type Natriuretic Peptide 4009H 11/23/17 08:02: Arterial Blood pH 7.404, Arterial Blood Partial Pressure CO2 38.4, Arterial Blood Partial Pressure O2 87.9, Arterial Blood HCO3 23.5, Arterial Blood Oxygen Saturation 95.5, Arterial Blood Base Excess -1.1, Yonathan Test Positive Height (Feet): 5 Height (Inches): 2.00 Weight (Pounds): 128 General Appearance: mild distress EENT: other - on bipap Cardiovascular: normal rate Respiratory/Chest: decreased breath sounds Abdomen: distended Objective no change Parrish Luo MD Nov 23, 2017 10:23
--- NOTE | 2017-11-23 11:30 | Pulmonolgy Critical Care Note ---
Critical Care - Asmt/Plan Assessment/Plan: 1. SIRS/sepsis. 2. Shock, likely septic. 3. Profound dehydration. 4. Hypernatremia, with an initial sodium of 177. 5. Anion gap metabolic acidosis, lactic acidosis. 6. Acute kidney injury, likely on chronic kidney disease. 7. Hypercalcemia. 8. Urinary tract infection. 9. History of traumatic brain injury, dementia, and seizure disorder. 10. History of prior tracheostomy, status post takedown. 11. History of staghorn renal calculi with multiple UTIs, status post suprapubic catheter placement. 12. senior care resident. 13. Nonverbal at baseline. 14. Bed-bound. 15. Full Code. TREATMENT PLAN: 1. somehwat improved this am check abg and cxr, am, may need intubation as pt remains full code despite multiple comorbidities 2. S/P NGT, per GI for meds only, POLST needs updating, consent from PEG previously given by son 3. PRN O2, PRN HHN's 4. Continue ERTA and VANCO per ID, repeat CX's 5. F/U recs 6. Monitor MS, F/U neuro recs 7. Heparin subcutaneous for DVT prophylaxis. 8. The patient is a Full Code, POLST reviewed by myself, we continue to discuss goals of care further ---> PLEASE ARRANGE A FAMILY MEETING NEXT WEEK. greater than 35 minutes spent of critical care time with the patient, reviewe the records, notes, labs, images, orders and contact PCP Respiratory: CXR, ABG Time Spent (Minutes): 40 Notes Reviewed: senior reservoir engineer, cardio Discussed with: nurses Critical Care - Objective Last 24 Hour Vital Signs Date Time Temp Pulse Resp B/P (MAP) Pulse Ox O2 Delivery O2 Flow Rate FiO2 11/23/17 10:46 66 19 99 Facial 35 11/23/17 09:02 63 20 100 Facial 35 11/23/17 08:00 35 11/23/17 08:00 59 11/23/17 08:00 Bi-pap 11/23/17 08:00 96.9 64 20 94/64 (74) 100 96.9 11/23/17 07:08 65 19 99 Facial 35 11/23/17 07:08 Bi-pap 35 11/23/17 07:08 99 Bi-pap 35 11/23/17 04:51 70 16 99 Facial 35 11/23/17 04:00 Bi-pap 11/23/17 04:00 96.9 81 20 114/62 (79) 96 96.9 11/23/17 04:00 68 11/23/17 03:01 69 16 98 Facial 35 11/23/17 00:51 76 21 99 Facial 35 11/23/17 00:00 66 11/23/17 00:00 Bi-pap 11/23/17 00:00 96.4 82 22 122/76 (91) 99 96.4 11/22/17 22:53 74 21 98 Facial 35 11/22/17 20:49 68 19 96 Facial 35 11/22/17 20:00 74 11/22/17 20:00 Bi-pap 11/22/17 20:00 96.5 75 18 101/65 (77) 98 96.5 11/22/17 19:02 76 16 98 Facial 35 11/22/17 19:01 Bi-pap 35 11/22/17 19:01 98 Bi-pap 35 11/22/17 16:33 89 24 97 Facial 35 11/22/17 16:32 90 22 Bi-pap 35 11/22/17 16:00 Nasal Cannula 4.0 11/22/17 16:00 86 11/22/17 16:00 97.5 97 20 102/60 (74) 93 97.5 11/22/17 12:00 Nasal Cannula 4.0 11/22/17 12:00 101 11/22/17 12:00 98.0 101 20 138/72 (94) 95 98.0 Status: obtunded Condition: critical Lungs: rhonchi Heart: HR/BP stable Abdomen: soft, non-tender Extremities: edema Decubiti: location Objective: op dry obtunded and does nto follow commands diffuse rhonchi and stridor noted tachy edematous Micro: Microbiology Date/Time Source Procedure Growth Status 11/21/17 14:30 Stool Clostridium difficile Toxin Assay - Final Complete 11/20/17 19:14 Urine,Clean Catch Urine Culture - Final Amy Albicans Complete Critical Care - Subjective ROS Limited/Unobtainable: Yes Condition: critical EKG Rhythm: Sinus Rhythm FI02: 35 Sputum Amount: Moderate Tube Feeding Amount: 50 I&O: Intake and Output 11/22/17 11/23/17 19:00 07:00 Intake Total 2005 ml 700 ml Output Total 1300 ml 1400 ml Balance 705 ml -700 ml Free Water 70 ml 90 ml IV Total 1450 ml Tube Feeding 485 ml 610 ml Output Urine Total 1000 ml 1300 ml Stool Total 300 ml 100 ml Subjective: eyes open on bipap since yesterday respiratory status improved TV around 450 RR 20 stridorous and agonal respirations resolved on TF op dry no family present CXR: 11/22 edema and infiltrates bilatearlly Labs: Current Medications Medications (Trade) Dose Ordered Sig/Tay Route PRN Reason Start Time Stop Time Status Last Admin Dose Admin Acetaminophen (Tylenol) 650 mg Q6H PRN ORAL Mild Pain/Temp > 101 11/09/17 21:30 12/09/17 21:29 Albumin Human 500 ml @ 0 mls/hr Q0M IV 11/21/17 15:00 12/21/17 14:59 Dextrose 1,000 ml @ 100 mls/hr Q10H IV 11/22/17 09:10 12/22/17 09:09 11/23/17 05:47 Ertapenem 1 gm/ Sodium Chloride 55 ml @ 110 mls/hr Q24H IVPB 11/15/17 18:00 11/23/17 23:59 11/22/17 17:15 Fluconazole/ Sodium Chloride 100 ml @ 100 mls/hr Q24H IV 11/22/17 17:00 11/29/17 16:59 11/22/17 17:17 Folic Acid (Folate) 2 mg DAILY NG 11/22/17 09:00 12/20/17 20:59 11/23/17 08:46 Heparin Sodium (Porcine) (Heparin 5000 units/ml) 5,000 units EVERY 12 HOURS SUBQ 11/10/17 09:00 12/10/17 08:59 11/23/17 08:53 Lansoprazole (Prevacid) 30 mg DAILY NG 11/22/17 09:00 12/22/17 08:59 11/23/17 08:46 Levetiracetam 100 ml @ 400 mls/hr Q12HR IVPB 11/22/17 21:00 12/22/17 20:59 11/23/17 08:48 Midodrine (Pro-Amatine) 10 mg THREE TIMES A DAY ORAL 11/20/17 18:00 12/20/17 17:59 11/23/17 08:46 Ondansetron HCl (Zofran) 4 mg Q4H PRN IVP Nausea & Vomiting 11/09/17 21:30 12/09/17 21:29 Sennosides (Senokot) 1 tab DAILY PRN ORAL Constipation 11/09/17 21:30 12/09/17 21:29 Vancomycin HCl (Vanco rx to dose) 1 ea DAILY PRN MISC Per rx protocol 11/12/17 13:30 12/12/17 13:29 Vancomycin HCl 500 mg/Dextrose 110 ml @ 110 mls/hr Q48H IVPB 11/17/17 13:00 11/23/17 23:59 11/21/17 13:10 Laboratory Tests Test 11/22/17 13:51 11/23/17 03:20 11/23/17 08:02 Arterial Blood pH 7.339 (7.350-7.450) 7.404 (7.350-7.450) Arterial Blood Partial Pressure CO2 50.0 mmHg (35.0-45.0) H 38.4 mmHg (35.0-45.0) Arterial Blood Partial Pressure O2 77.0 mmHg (75.0-100.0) 87.9 mmHg (75.0-100.0) Arterial Blood HCO3 26.3 mmol/L (22.0-26.0) H 23.5 mmol/L (22.0-26.0) Arterial Blood Oxygen Saturation 93.7 % (92.0-98.0) 95.5 % (92.0-98.0) Arterial Blood Base Excess 0.2 -1.1 Yonathan Test Positive Positive White Blood Count 8.1 K/UL (4.8-10.8) Red Blood Count 2.98 M/UL (4.20-5.40) L Hemoglobin 8.8 G/DL (12.0-16.0) L Hematocrit 26.4 % (37.0-47.0) L Mean Corpuscular Volume 89 FL (80-99) Mean Corpuscular Hemoglobin 29.6 PG (27.0-31.0) Mean Corpuscular Hemoglobin Concent 33.4 G/DL (32.0-36.0) Red Cell Distribution Width 15.4 % (11.6-14.8) H Platelet Count 167 K/UL (150-450) Mean Platelet Volume 6.8 FL (6.5-10.1) Neutrophils (%) (Auto) 72.4 % (45.0-75.0) Lymphocytes (%) (Auto) 20.5 % (20.0-45.0) Monocytes (%) (Auto) 5.2 % (1.0-10.0) Eosinophils (%) (Auto) 1.4 % (0.0-3.0) Basophils (%) (Auto) 0.7 % (0.0-2.0) Sodium Level 160 MMOL/L (136-145) H Potassium Level 3.7 MMOL/L (3.5-5.1) Chloride Level 126 MMOL/L (98-107) H Carbon Dioxide Level 27 MMOL/L (21-32) Anion Gap 8 mmol/L (5-15) Blood Urea Nitrogen 27 mg/dL (7-18) H Creatinine 1.9 MG/DL (0.55-1.30) H Estimat Glomerular Filtration Rate 27.5 mL/min (>60) Glucose Level 95 MG/DL (74-106) Calcium Level 8.7 MG/DL (8.5-10.1) C-Reactive Protein, Quantitative 12.4 mg/dL (0.00-0.90) H Pro-B-Type Natriuretic Peptide 4009 pg/mL (0-125) H Racquel Fam DO Nov 23, 2017 11:30
--- NOTE | 2017-11-23 11:54 | General Progress Note ---
Assessment/Plan Assessment/Plan Assessment (1) Electrolyte imbalance ICD Codes: E87.8 - Other disorders of electrolyte and fluid balance, not elsewhere classified SNOMED: 269420929 (2) Encounter for PEG (percutaneous endoscopic gastrostomy) - dysphagia ICD Codes: Z43.1 - Encounter for attention to gastrostomy SNOMED: 499490665, 631103464 (3) Dehydration ICD Codes: E86.0 - Dehydration SNOMED: 25306994 (4) Dehydration, severe ICD Codes: E86.0 - Dehydration SNOMED: 024535152 Status: stable . Assessment/Plan POLST needs to be updated, fu social services aide/bioethics PEG when respiratory status stable NGT for meds only IV hydration electrolyte correction per Nephro ppi bowel regime fu labs Subjective Allergies: Coded Allergies: CEFEPIME (Unverified Allergy, Unknown, 11/09/17) Subjective Nonverbal tolerating TF d/w staff counselor Objective Last 24 Hour Vital Signs Date Time Temp Pulse Resp B/P (MAP) Pulse Ox O2 Delivery O2 Flow Rate FiO2 11/23/17 11:33 97.2 63 20 106/64 (78) 100 97.2 11/23/17 10:46 66 19 99 Facial 35 11/23/17 09:02 63 20 100 Facial 35 11/23/17 08:00 35 11/23/17 08:00 59 11/23/17 08:00 Bi-pap 11/23/17 08:00 96.9 64 20 94/64 (74) 100 96.9 11/23/17 07:08 65 19 99 Facial 35 11/23/17 07:08 Bi-pap 35 11/23/17 07:08 99 Bi-pap 35 11/23/17 04:51 70 16 99 Facial 35 11/23/17 04:00 Bi-pap 11/23/17 04:00 96.9 81 20 114/62 (79) 96 96.9 11/23/17 04:00 68 11/23/17 03:01 69 16 98 Facial 35 11/23/17 00:51 76 21 99 Facial 35 11/23/17 00:00 66 11/23/17 00:00 Bi-pap 11/23/17 00:00 96.4 82 22 122/76 (91) 99 96.4 11/22/17 22:53 74 21 98 Facial 35 11/22/17 20:49 68 19 96 Facial 35 11/22/17 20:00 74 11/22/17 20:00 Bi-pap 11/22/17 20:00 96.5 75 18 101/65 (77) 98 96.5 11/22/17 19:02 76 16 98 Facial 35 11/22/17 19:01 Bi-pap 35 11/22/17 19:01 98 Bi-pap 35 11/22/17 16:33 89 24 97 Facial 35 11/22/17 16:32 90 22 Bi-pap 35 11/22/17 16:00 Nasal Cannula 4.0 11/22/17 16:00 86 11/22/17 16:00 97.5 97 20 102/60 (74) 93 97.5 11/22/17 12:00 Nasal Cannula 4.0 11/22/17 12:00 101 11/22/17 12:00 98.0 101 20 138/72 (94) 95 98.0 Intake and Output 11/22/17 11/23/17 19:00 07:00 Intake Total 2005 ml 700 ml Output Total 1300 ml 1400 ml Balance 705 ml -700 ml Free Water 70 ml 90 ml IV Total 1450 ml Tube Feeding 485 ml 610 ml Output Urine Total 1000 ml 1300 ml Stool Total 300 ml 100 ml Laboratory Tests 11/22/17 13:51: Arterial Blood pH 7.339L, Arterial Blood Partial Pressure CO2 50.0H, Arterial Blood Partial Pressure O2 77.0, Arterial Blood HCO3 26.3H, Arterial Blood Oxygen Saturation 93.7, Arterial Blood Base Excess 0.2, Yonathan Test Positive 11/23/17 03:20: White Blood Count 8.1, Red Blood Count 2.98L, Hemoglobin 8.8L, Hematocrit 26.4L , Mean Corpuscular Volume 89, Mean Corpuscular Hemoglobin 29.6, Mean Corpuscular Hemoglobin Concent 33.4, Red Cell Distribution Width 15.4H, Platelet Count 167, Mean Platelet Volume 6.8, Neutrophils (%) (Auto) 72.4, Lymphocytes (%) (Auto) 20.5, Monocytes (%) (Auto) 5.2, Eosinophils (%) (Auto) 1.4, Basophils (%) (Auto) 0.7, Sodium Level 160H, Potassium Level 3.7, Chloride Level 126H, Carbon Dioxide Level 27, Anion Gap 8, Blood Urea Nitrogen 27H, Creatinine 1.9H, Estimat Glomerular Filtration Rate 27.5, Glucose Level 95, Calcium Level 8.7, C-Reactive Protein, Quantitative 12.4H, Pro-B-Type Natriuretic Peptide 4009H 11/23/17 08:02: Arterial Blood pH 7.404, Arterial Blood Partial Pressure CO2 38.4, Arterial Blood Partial Pressure O2 87.9, Arterial Blood HCO3 23.5, Arterial Blood Oxygen Saturation 95.5, Arterial Blood Base Excess -1.1, Yonathan Test Positive Height (Feet): 5 Height (Inches): 2.00 Weight (Pounds): 128 Objective Elderly WW NCAT supple CTA RRR abd soft, (+) Suprapubic cath rectal tube OBS Rafa Marion MD Nov 23, 2017 11:54
[2017-11-23] MEDS: Vancomycin 500mg/D5W 110ml IVPB SCH ×2 (12:41)
--- NOTE | 2017-11-23 15:28 | Neurology Progress Note ---
Interim History Interim History Interim History Ms. Guaman is on BiPAP now. She is mumbling when asked questions. She she is awake but not alert. She is cognitively impoverished. She is motorically challenged. As per her nurse there has been no change in her neurologic state. She has exhibited no clinical seizures. Review of Systems Neuro Review of Systems Unable to obtain. Objective Physical Exam Last Vital Signs Date Time Temp Pulse Resp B/P (MAP) Pulse Ox O2 Delivery O2 Flow Rate FiO2 11/23/17 15:05 63 17 99 Facial 35 11/23/17 11:33 97.2 106/64 (78) 97.2 11/22/17 16:00 4.0 Laboratory Tests Test 11/23/17 03:20 11/23/17 08:02 White Blood Count 8.1 K/UL (4.8-10.8) Red Blood Count 2.98 M/UL (4.20-5.40) L Hemoglobin 8.8 G/DL (12.0-16.0) L Hematocrit 26.4 % (37.0-47.0) L Mean Corpuscular Volume 89 FL (80-99) Mean Corpuscular Hemoglobin 29.6 PG (27.0-31.0) Mean Corpuscular Hemoglobin Concent 33.4 G/DL (32.0-36.0) Red Cell Distribution Width 15.4 % (11.6-14.8) H Platelet Count 167 K/UL (150-450) Mean Platelet Volume 6.8 FL (6.5-10.1) Neutrophils (%) (Auto) 72.4 % (45.0-75.0) Lymphocytes (%) (Auto) 20.5 % (20.0-45.0) Monocytes (%) (Auto) 5.2 % (1.0-10.0) Eosinophils (%) (Auto) 1.4 % (0.0-3.0) Basophils (%) (Auto) 0.7 % (0.0-2.0) Sodium Level 160 MMOL/L (136-145) H Potassium Level 3.7 MMOL/L (3.5-5.1) Chloride Level 126 MMOL/L (98-107) H Carbon Dioxide Level 27 MMOL/L (21-32) Anion Gap 8 mmol/L (5-15) Blood Urea Nitrogen 27 mg/dL (7-18) H Creatinine 1.9 MG/DL (0.55-1.30) H Estimat Glomerular Filtration Rate 27.5 mL/min (>60) Glucose Level 95 MG/DL (74-106) Calcium Level 8.7 MG/DL (8.5-10.1) C-Reactive Protein, Quantitative 12.4 mg/dL (0.00-0.90) H Pro-B-Type Natriuretic Peptide 4009 pg/mL (0-125) H Arterial Blood pH 7.404 (7.350-7.450) Arterial Blood Partial Pressure CO2 38.4 mmHg (35.0-45.0) Arterial Blood Partial Pressure O2 87.9 mmHg (75.0-100.0) Arterial Blood HCO3 23.5 mmol/L (22.0-26.0) Arterial Blood Oxygen Saturation 95.5 % (92.0-98.0) Arterial Blood Base Excess -1.1 Yonathan Test Positive Neurologic Exam Objective PHYSICAL EXAMINATION: GENERAL: She is a well-developed and well-nourished lady, lying in bed , in no acute distress. HEAD: Normocephalic with right craniectomy defect. EENT: Examination benign. NECK: No neck rigidity was observed. NEUROLOGICAL EXAMINATION: MENTAL STATUS EXAMINATION: She awake but not alert. She was mumbling. Further mental status testing was impossible. SPEECH: She was mumbling and had a BiPAP mask on. LANGUAGE: Could not be tested. CRANIAL NERVE EXAMINATION: II: She did blink to threat. III, IV & : The eyes were dysconjugate. External ocular movements were present on oculocephalic maneuvers. The pupils were 3 mm in diameter, equal, round, regular, and reactive sluggishly to light. V & VII: Corneal reflexes were present, but brisker on the right than on the left. VIII: She did respond to sounds and had no nystagmus. IX & X: The gag reflex was absent. IX: Sternocleidomastoids and trapezii did function minimally on applying deep painful stimuli. XII: Tongue in the midline. MOTOR SYSTEM: The tone was increased in both lower extremities with spasticity. The tone was relatively normal in the right upper extremity but was diminished in the left upper extremity. Examination of muscle mass revealed wasting of the left upper and lower extremities and in addition a flexion contracture at the elbow. The examination of power was impossible to perform accurately as she did not move her left side at all and moved her right side minimally in a nonpurposeful manner. SENSORY EXAMINATION: She responded to deep pain on the right side but not the left. REFLEXES: 2+ on the left and 2++ on the right at the biceps, triceps, brachioradialis, and knees, 0 at both ankles. The plantar responses were extensor bilaterally. COORDINATION, STANCE & GAIT: Could not be tested. Impression/Recommendations Diagnostic Impression 1. Ms. Yumiko Guaman is a 52-year-old, lady, of unknown handedness, who does have a past history of severe brain trauma with a right-sided craniectomy and significant right brain encephalomalacia. She also has a history of a seizure disorder that is undefined. She has a left plegia and prior episodes of respiratory failure, urinary tract infections, and multiple episodes of sepsis. She was hospitalized on 11/09/2017 for a urinary tract infection associated with sepsis but her mental state improved with treatment of those conditions. on 11/20/17 there was a sudden decline in her level of arousal. 2. She is on BiPAP now. She is mumbling when asked questions. She she is awake but not alert. She is cognitively impoverished. She is motorically challenged. As per her nurse there has been no change in her neurologic state. She has exhibited no clinical seizures. 3. On neurological examination at this time, she does demonstrate a right-sided craniectomy. She is awake but not alert. She is mumbling when asked questions. Further mental status testing is impossible. Language cannot be tested. She does blink to visual threat. The corneal reflexes are diminished on the left side compared to the right. She has left upper extremity greater than lower extremity contractures and left-sided plegia and significant right-sided hemiparesis. She only responds to deep pain on the right side with minimal withdrawal but not on the left side. The deep tendon reflexes are brisker on the right side compared to the left and she has extensor plantar responses bilaterally. 4. CT scan of the brain without contrast performed on 11/20/2017 revealed a large right convexity craniectomy and extensive underlying temporal and parietal encephalomalacia. There was also encephalomalacia of the right cerebellum. There was a left frontal craniotomy defect with overlying mesh. There was no significant underlying parenchymal abnormality on the left side. She also had right-sided ventriculostomy. No acute pathology was noted. 5. Laboratory data revealed that she was anemic with a hemoglobin of 10.5 G. Her WBC count was 10,000 but she had a left-sided shift with 80% polymorphonuclear leukocytes. The chemistry panel revealed a creatinine elevated to 2.0. The ammonia was minimally elevated at 34. The Vitamin B12 level and TSH were normal. The Folate was minimally low at 3.9. The Urinalysis that was done on 11/09/2017 revealed 3+ leukocyte esterase, 40-60 RBCs and 40-60 WBCs per high-power field. Her latest arterial blood gas revealed a pH of 7.35, pCO2 of 42, and pO2 of 60. 6. The EEG done on 11/21/17 revealed severe generalized cerebral dysfunction and multiple electrographic seizures emanating from the right fronto-central region sometimes lasting al long as 120 seconds. 7. The patient's history, neurological examination, and laboratory data and imaging studies are most compatible with worsening of a toxic metabolic encephalopathy and in addition subclinical electrographic seizures emanating from the right fronto-central region. Recommendations 1. Continue present management. 2. Continue present therapeutic management. 3. Continue aggressive antibiotic treatment. 4. Continue to correct the patient's toxic metabolic imbalances. 5. Continue Keppra to 1000 mg IV q 12 hours. 6. Repeat EEG on 11/24/17. 7. Observe closely. Roseann Barnes M.D., M.S.P.H. ROSEANN BARNES Nov 23, 2017 15:28
--- NOTE | 2017-11-23 15:35 | Infectious Diseases Prog Note ---
Assessment/Plan Problems: (1) Catheter-associated urinary tract infection Assessment & Plan: with nahed spp , recommend to change suprapubic catheter since it is colonized with yeast, will start fluconazole for 14 days (2) Altered mental state Assessment & Plan: improving , continue aggressive hydration, neurology is following, head CT no acute pathology (3) Acute pyelonephritis Assessment & Plan: with MDR Providencia stuartii, and MRSA , suspect due to right ureter stent obstruction, continue vancomycin to cover for MRSA , and ertapenem for MDR Providencia stuartii for two weeks total , urology eval is in progress , may need stent removal . EOT 11/23/17 (4) Hydronephrosis of right kidney Assessment & Plan: suspect ureter stent malfunction , urology eval is in progress, may need stent removal (5) Severe sepsis Assessment & Plan: with staph simulans , most likely contamination , grew from one set only. already on vancomycin for two weeks for MRSA pyelonephritis, repeated blood culture is negative (6) Renal failure Assessment & Plan: continue aggressive hydration , monitor renal function, avoid nephrotoxics (7) Left shoulder pain Assessment & Plan: due to chronic rotator cuff syndrom, as evident by X ray , folllow up with ortho (8) Colonization with VRE (vancomycin-resistant enterococcus) Assessment & Plan: keep in contact isolation (9) Hypotension Assessment & Plan: doubt due to sepsis , suspect dehydration . cortisol level looks ok . repeated blood culture is negative (10) Diarrhea Assessment & Plan: not due to C diff with negative toxin , continue aggressive hydration Subjective ROS Limited/Unobtainable: Yes Allergies: Coded Allergies: CEFEPIME (Unverified Allergy, Unknown, 11/09/17) Subjective she was lying in bed, awake , nonverbal , on BIPAP machine , unresponsive to verbal commands , a febrile Objective Vital Signs Last 24 Hour Vital Signs Date Time Temp Pulse Resp B/P (MAP) Pulse Ox O2 Delivery O2 Flow Rate FiO2 11/23/17 15:05 63 17 99 Facial 35 11/23/17 12:57 61 19 100 Facial 35 11/23/17 12:00 63 11/23/17 12:00 35 11/23/17 12:00 Bi-pap 11/23/17 11:33 97.2 63 20 106/64 (78) 100 97.2 11/23/17 10:46 66 19 99 Facial 35 11/23/17 09:02 63 20 100 Facial 35 11/23/17 08:00 35 11/23/17 08:00 59 11/23/17 08:00 Bi-pap 11/23/17 08:00 96.9 64 20 94/64 (74) 100 96.9 11/23/17 07:08 65 19 99 Facial 35 11/23/17 07:08 Bi-pap 35 11/23/17 07:08 99 Bi-pap 35 11/23/17 04:51 70 16 99 Facial 35 11/23/17 04:00 Bi-pap 11/23/17 04:00 96.9 81 20 114/62 (79) 96 96.9 11/23/17 04:00 68 11/23/17 03:01 69 16 98 Facial 35 11/23/17 00:51 76 21 99 Facial 35 11/23/17 00:00 66 11/23/17 00:00 Bi-pap 11/23/17 00:00 96.4 82 22 122/76 (91) 99 96.4 11/22/17 22:53 74 21 98 Facial 35 11/22/17 20:49 68 19 96 Facial 35 11/22/17 20:00 74 11/22/17 20:00 Bi-pap 11/22/17 20:00 96.5 75 18 101/65 (77) 98 96.5 11/22/17 19:02 76 16 98 Facial 35 11/22/17 19:01 Bi-pap 35 11/22/17 19:01 98 Bi-pap 35 11/22/17 16:33 89 24 97 Facial 35 11/22/17 16:32 90 22 Bi-pap 35 11/22/17 16:00 Nasal Cannula 4.0 11/22/17 16:00 86 11/22/17 16:00 97.5 97 20 102/60 (74) 93 97.5 Height (Feet): 5 Height (Inches): 2.00 Weight (Pounds): 128 General Appearance: WD/WN, no acute distress HEENT: normocephalic, atraumatic, anicteric, mucous membranes moist, PERRL, supple, no JVD Respiratory/Chest: no respiratory distress, no accessory muscle use, decreased breath sounds, crackles/rales Cardiovascular: normal peripheral pulses, normal rate, regular rhythm, no gallop/murmur, no JVD Abdomen: normal bowel sounds, soft, non tender, no organomegaly, non distended , no mass, no scars Extremities: no cyanosis, no clubbing Skin: no rash, no lesions, no ulcers Neurologic/Psychiatric: alert, unresponsiveness Lymphatic: no neck adenopathy, no groin adenopathy Musculoskeletal: normal muscle bulk, no effusion Microbiology Date/Time Source Procedure Growth Status 11/21/17 14:30 Stool Clostridium difficile Toxin Assay - Final Complete 11/20/17 19:14 Urine,Clean Catch Urine Culture - Final Nahed Albicans Complete Laboratory Tests Test 11/23/17 03:20 11/23/17 08:02 White Blood Count 8.1 K/UL (4.8-10.8) Red Blood Count 2.98 M/UL (4.20-5.40) L Hemoglobin 8.8 G/DL (12.0-16.0) L Hematocrit 26.4 % (37.0-47.0) L Mean Corpuscular Volume 89 FL (80-99) Mean Corpuscular Hemoglobin 29.6 PG (27.0-31.0) Mean Corpuscular Hemoglobin Concent 33.4 G/DL (32.0-36.0) Red Cell Distribution Width 15.4 % (11.6-14.8) H Platelet Count 167 K/UL (150-450) Mean Platelet Volume 6.8 FL (6.5-10.1) Neutrophils (%) (Auto) 72.4 % (45.0-75.0) Lymphocytes (%) (Auto) 20.5 % (20.0-45.0) Monocytes (%) (Auto) 5.2 % (1.0-10.0) Eosinophils (%) (Auto) 1.4 % (0.0-3.0) Basophils (%) (Auto) 0.7 % (0.0-2.0) Sodium Level 160 MMOL/L (136-145) H Potassium Level 3.7 MMOL/L (3.5-5.1) Chloride Level 126 MMOL/L (98-107) H Carbon Dioxide Level 27 MMOL/L (21-32) Anion Gap 8 mmol/L (5-15) Blood Urea Nitrogen 27 mg/dL (7-18) H Creatinine 1.9 MG/DL (0.55-1.30) H Estimat Glomerular Filtration Rate 27.5 mL/min (>60) Glucose Level 95 MG/DL (74-106) Calcium Level 8.7 MG/DL (8.5-10.1) C-Reactive Protein, Quantitative 12.4 mg/dL (0.00-0.90) H Pro-B-Type Natriuretic Peptide 4009 pg/mL (0-125) H Arterial Blood pH 7.404 (7.350-7.450) Arterial Blood Partial Pressure CO2 38.4 mmHg (35.0-45.0) Arterial Blood Partial Pressure O2 87.9 mmHg (75.0-100.0) Arterial Blood HCO3 23.5 mmol/L (22.0-26.0) Arterial Blood Oxygen Saturation 95.5 % (92.0-98.0) Arterial Blood Base Excess -1.1 Yonathan Test Positive Current Medications Medications (Trade) Dose Ordered Sig/Tay Route PRN Reason Start Time Stop Time Status Last Admin Dose Admin Acetaminophen (Tylenol) 650 mg Q6H PRN ORAL Mild Pain/Temp > 101 11/09/17 21:30 12/09/17 21:29 Albumin Human 500 ml @ 0 mls/hr Q0M IV 11/21/17 15:00 12/21/17 14:59 Dextrose 1,000 ml @ 100 mls/hr Q10H IV 11/22/17 09:10 12/22/17 09:09 11/23/17 05:47 Ertapenem 1 gm/ Sodium Chloride 55 ml @ 110 mls/hr Q24H IVPB 11/15/17 18:00 11/23/17 23:59 11/22/17 17:15 Fluconazole/ Sodium Chloride 100 ml @ 100 mls/hr Q24H IV 11/22/17 17:00 11/29/17 16:59 11/22/17 17:17 Folic Acid (Folate) 2 mg DAILY NG 11/22/17 09:00 12/20/17 20:59 11/23/17 08:46 Heparin Sodium (Porcine) (Heparin 5000 units/ml) 5,000 units EVERY 12 HOURS SUBQ 11/10/17 09:00 12/10/17 08:59 11/23/17 08:53 Lansoprazole (Prevacid) 30 mg DAILY NG 11/22/17 09:00 12/22/17 08:59 11/23/17 08:46 Levetiracetam 100 ml @ 400 mls/hr Q12HR IVPB 11/22/17 21:00 12/22/17 20:59 11/23/17 08:48 Midodrine (Pro-Amatine) 10 mg THREE TIMES A DAY ORAL 11/20/17 18:00 12/20/17 17:59 11/23/17 12:41 Ondansetron HCl (Zofran) 4 mg Q4H PRN IVP Nausea & Vomiting 11/09/17 21:30 12/09/17 21:29 Sennosides (Senokot) 1 tab DAILY PRN ORAL Constipation 11/09/17 21:30 12/09/17 21:29 Vancomycin HCl (Vanco rx to dose) 1 ea DAILY PRN MISC Per rx protocol 11/12/17 13:30 12/12/17 13:29 Vancomycin HCl 500 mg/Dextrose 110 ml @ 110 mls/hr Q48H IVPB 11/17/17 13:00 11/23/17 23:59 11/23/17 12:41 Kortney Quiñones M.D. Nov 23, 2017 15:35
[2017-11-23] MEDS: Ertapenem 1 GM in NS 55 ML IVPB SCH (17:23)
[2017-11-24 04:00] VITALS: BP 102/58
[2017-11-24 08:00] VITALS: BP 95/51
[2017-11-24] MEDS: Midodrine 10mg tab ORAL SCH ×3 (08:52→17:13)
[2017-11-24] MEDS: Heparin 5000 units/ml inj SUBQ SCH ×2 (08:52→20:58)
[2017-11-24] MEDS: levETIRAcetam 1,000mg/NS100ml 100 ML IVPB SCH ×2 (08:53→20:57)
[2017-11-24 09:18] LABS: BASOPHILS % (AUTO) 0.5 % (0.0-2.0); HEMATOCRIT 25.2 % (37.0-47.0); HEMOGLOBIN 8.3 G/DL (12.0-16.0); LYMPHOCYTES % (AUTO) 15.4 % (20.0-45.0); MEAN CORPUSCULAR VOLUME 90 FL (80-99); MONOCYTES % (AUTO) 3.6 % (1.0-10.0); NEUTROPHILS % (AUTO) 78.5 % (45.0-75.0); PLATELET COUNT 164 K/UL (150-450); RED CELL DISTRIBUTION WIDTH 15.3 % (11.6-14.8)
[2017-11-24 09:46] LABS: ALANINE AMINOTRANSFERASE 19 U/L (12-78); ALBUMIN/GLOBULIN RATIO 0.4 (1.0-2.7); ALKALINE PHOSPHATASE 223 U/L (46-116); ANION GAP 7 mmol/L (5-15); ASPARTATE AMINO TRANSFERASE 36 U/L (15-37); BILIRUBIN,TOTAL 0.2 MG/DL (0.2-1.0); BLOOD UREA NITROGEN 28 mg/dL (7-18); CALCIUM 8.3 MG/DL (8.5-10.1); CARBON DIOXIDE 26 MMOL/L (21-32); CHLORIDE 120 MMOL/L (98-107); PHOSPHORUS 3.2 MG/DL (2.5-4.9); POTASSIUM 4.2 MMOL/L (3.5-5.1); SODIUM 153 MMOL/L (136-145)
[2017-11-24 10:13] LABS: ALANINE AMINOTRANSFERASE 20 U/L (12-78); ALKALINE PHOSPHATASE 221 U/L (46-116); ASPARTATE AMINO TRANSFERASE 33 U/L (15-37); BILIRUBIN,DIRECT < 0.1 MG/DL (0.0-0.3); BILIRUBIN,TOTAL 0.2 MG/DL (0.2-1.0)
--- NOTE | 2017-11-24 11:00 | GI Progress Note ---
Assessment/Plan Problems: (1) Electrolyte imbalance ICD Codes: E87.8 - Other disorders of electrolyte and fluid balance, not elsewhere classified SNOMED: 782514353 (2) Encounter for PEG (percutaneous endoscopic gastrostomy) ICD Codes: Z43.1 - Encounter for attention to gastrostomy SNOMED: 686009735, 178581353 (3) Dehydration ICD Codes: E86.0 - Dehydration SNOMED: 15061867 (4) Dehydration, severe ICD Codes: E86.0 - Dehydration SNOMED: 137753494 Status: not improved, unchanged Status Narrative Discussed with Dr. Chan. Assessment/Plan POLST needs to be updated, fu social services designee/bioethics PEG when respiratory status stable NGT for meds only IV hydration electrolyte correction per Nephro ppi bowel regime fu labs The patient was seen and examined at bedside and all new and available data was reviewed in the patients chart. I agree with the above findings, impression and plan. (Patient seen earlier today. Signature stamp does not reflect patient encounter time.). - Laith Chan MD Subjective Subjective limited Objective Last 24 Hour Vital Signs Date Time Temp Pulse Resp B/P (MAP) Pulse Ox O2 Delivery O2 Flow Rate FiO2 11/24/17 09:03 66 17 100 Facial 35 11/24/17 08:00 71 11/24/17 08:00 96.3 69 18 95/51 (66) 99 96.3 11/24/17 08:00 Bi-pap 11/24/17 08:00 35 11/24/17 06:44 100 Bi-pap 35 11/24/17 06:44 Bi-pap 35 11/24/17 06:39 66 20 100 Facial 35 11/24/17 05:14 59 18 99 Facial 35 11/24/17 04:00 97.6 67 16 102/58 (73) 100 97.6 11/24/17 04:00 Bi-pap 11/24/17 04:00 59 11/24/17 04:00 35 11/24/17 03:04 68 19 100 Facial 35 11/24/17 00:45 63 22 99 Facial 35 11/24/17 00:00 69 11/24/17 00:00 Bi-pap 11/23/17 23:55 97.3 63 16 97/43 (61) 100 97.3 11/23/17 22:43 66 24 100 Facial 35 11/23/17 22:00 35 11/23/17 20:43 58 16 100 Facial 35 11/23/17 20:00 Bi-pap 11/23/17 20:00 60 11/23/17 20:00 96.8 69 21 97/53 (68) 99 96.8 11/23/17 18:45 55 22 100 Facial 35 11/23/17 18:45 Bi-pap 35 11/23/17 18:45 100 Bi-pap 35 11/23/17 17:17 65 16 100 Facial 35 11/23/17 16:00 Bi-pap 11/23/17 16:00 35 11/23/17 16:00 56 11/23/17 15:53 97.9 62 20 110/56 (74) 100 97.9 11/23/17 15:05 63 17 99 Facial 35 11/23/17 12:57 61 19 100 Facial 35 11/23/17 12:00 63 11/23/17 12:00 35 11/23/17 12:00 Bi-pap 11/23/17 11:33 97.2 63 20 106/64 (78) 100 97.2 Intake and Output 11/23/17 11/24/17 19:00 07:00 Intake Total 2525 ml 50 ml Output Total 1100 ml 400 ml Balance 1425 ml -350 ml Free Water 260 ml IV Total 1665 ml Tube Feeding 600 ml 50 ml Output Urine Total 1100 ml 400 ml Stool Total 0 ml Laboratory Tests Test 11/24/17 06:45 11/24/17 08:30 11/24/17 08:45 Arterial Blood pH 7.380 (7.350-7.450) Arterial Blood Partial Pressure CO2 45.5 mmHg (35.0-45.0) H Arterial Blood Partial Pressure O2 77.9 mmHg (75.0-100.0) Arterial Blood HCO3 26.9 mmol/L (22.0-26.0) H Arterial Blood Oxygen Saturation 94.2 % (92.0-98.0) Arterial Blood Base Excess 1.6 Yonathan Test Positive Prothrombin Time 10.1 SEC (9.30-11.50) Prothromb Time International Ratio 1.0 (0.9-1.1) Activated Partial Thromboplast Time 54 SEC (23-33) H Sodium Level 153 MMOL/L (136-145) H Potassium Level 4.2 MMOL/L (3.5-5.1) Chloride Level 120 MMOL/L (98-107) H Carbon Dioxide Level 26 MMOL/L (21-32) Anion Gap 7 mmol/L (5-15) Blood Urea Nitrogen 28 mg/dL (7-18) H Creatinine 2.0 MG/DL (0.55-1.30) H Estimat Glomerular Filtration Rate 26.0 mL/min (>60) Glucose Level 109 MG/DL (74-106) H Calcium Level 8.3 MG/DL (8.5-10.1) L Phosphorus Level 3.2 MG/DL (2.5-4.9) Magnesium Level 2.5 MG/DL (1.8-2.4) H Total Bilirubin 0.2 MG/DL (0.2-1.0) Direct Bilirubin < 0.1 MG/DL (0.0-0.3) Aspartate Amino Transf (AST/SGOT) 33 U/L (15-37) Alanine Aminotransferase (ALT/SGPT) 20 U/L (12-78) Alkaline Phosphatase 221 U/L (46-116) H Pro-B-Type Natriuretic Peptide 5469 pg/mL (0-125) H Total Protein 6.5 G/DL (6.4-8.2) Albumin 2.0 G/DL (3.4-5.0) L Globulin 4.6 g/dL Albumin/Globulin Ratio 0.4 (1.0-2.7) L White Blood Count 9.0 K/UL (4.8-10.8) Red Blood Count 2.80 M/UL (4.20-5.40) L Hemoglobin 8.3 G/DL (12.0-16.0) L Hematocrit 25.2 % (37.0-47.0) L Mean Corpuscular Volume 90 FL (80-99) Mean Corpuscular Hemoglobin 29.7 PG (27.0-31.0) Mean Corpuscular Hemoglobin Concent 33.0 G/DL (32.0-36.0) Red Cell Distribution Width 15.3 % (11.6-14.8) H Platelet Count 164 K/UL (150-450) Mean Platelet Volume 7.3 FL (6.5-10.1) Neutrophils (%) (Auto) 78.5 % (45.0-75.0) H Lymphocytes (%) (Auto) 15.4 % (20.0-45.0) L Monocytes (%) (Auto) 3.6 % (1.0-10.0) Eosinophils (%) (Auto) 2.0 % (0.0-3.0) Basophils (%) (Auto) 0.5 % (0.0-2.0) Height (Feet): 5 Height (Inches): 2.00 Weight (Pounds): 128 General Appearance: lethargic Cardiovascular: normal rate Respiratory/Chest: normal breath sounds, no respiratory distress Abdominal Exam: soft, other - NGT Olivia Lubin NP Nov 24, 2017 11:00
--- NOTE | 2017-11-24 11:04 | Urology Progress Note ---
Assessment/Plan Assessment/Plan 1. History of hydronephrosis that is chronic. 2. Renal insufficiency, acute on chronic, labile. 3. Hematuria. 4. Pyuria/UTI/colonized. 5. Proteinuria. 6. Urinary retention with chronic suprapubic tube. 7. Neurogenic bladder. sp tube indwelling, last exchanged 11/18 hand irrigated, patent abx as ordered, diflucan monitor renal fxn need old recs indwelling ureteral stents can be addressed by pt's outside urologist once medically more stable Subjective Allergies: Coded Allergies: CEFEPIME (Unverified Allergy, Unknown, 11/09/17) Subjective all noted Objective Last 24 Hour Vital Signs Date Time Temp Pulse Resp B/P (MAP) Pulse Ox O2 Delivery O2 Flow Rate FiO2 11/24/17 09:03 66 17 100 Facial 35 11/24/17 08:00 71 11/24/17 08:00 96.3 69 18 95/51 (66) 99 96.3 11/24/17 08:00 Bi-pap 11/24/17 08:00 35 11/24/17 06:44 100 Bi-pap 35 11/24/17 06:44 Bi-pap 35 11/24/17 06:39 66 20 100 Facial 35 11/24/17 05:14 59 18 99 Facial 35 11/24/17 04:00 97.6 67 16 102/58 (73) 100 97.6 11/24/17 04:00 Bi-pap 11/24/17 04:00 59 11/24/17 04:00 35 11/24/17 03:04 68 19 100 Facial 35 11/24/17 00:45 63 22 99 Facial 35 11/24/17 00:00 69 11/24/17 00:00 Bi-pap 11/23/17 23:55 97.3 63 16 97/43 (61) 100 97.3 11/23/17 22:43 66 24 100 Facial 35 11/23/17 22:00 35 11/23/17 20:43 58 16 100 Facial 35 11/23/17 20:00 Bi-pap 11/23/17 20:00 60 11/23/17 20:00 96.8 69 21 97/53 (68) 99 96.8 11/23/17 18:45 55 22 100 Facial 35 11/23/17 18:45 Bi-pap 35 11/23/17 18:45 100 Bi-pap 35 11/23/17 17:17 65 16 100 Facial 35 11/23/17 16:00 Bi-pap 11/23/17 16:00 35 11/23/17 16:00 56 11/23/17 15:53 97.9 62 20 110/56 (74) 100 97.9 11/23/17 15:05 63 17 99 Facial 35 11/23/17 12:57 61 19 100 Facial 35 11/23/17 12:00 63 11/23/17 12:00 35 11/23/17 12:00 Bi-pap 11/23/17 11:33 97.2 63 20 106/64 (78) 100 97.2 Intake and Output 11/23/17 11/24/17 19:00 07:00 Intake Total 2525 ml 50 ml Output Total 1100 ml 400 ml Balance 1425 ml -350 ml Free Water 260 ml IV Total 1665 ml Tube Feeding 600 ml 50 ml Output Urine Total 1100 ml 400 ml Stool Total 0 ml Microbiology Date/Time Source Procedure Growth Status 11/13/17 15:10 Blood Blood Culture - Final NO GROWTH AFTER 5 DAYS Complete 11/09/17 20:25 Nasal Nares MRSA Culture - Final Staphylococcus Aureus - Mrsa Complete 11/21/17 14:30 Stool Clostridium difficile Toxin Assay - Final Complete 11/20/17 19:14 Urine,Clean Catch Urine Culture - Final Amy Albicans Complete 11/10/17 20:25 Rectum - Final NO CARBAPENEM-RESISTANT ENTEROBACTERI... Complete Current Medications Medications (Trade) Dose Ordered Sig/Tay Route PRN Reason Start Time Stop Time Status Last Admin Dose Admin Acetaminophen (Tylenol) 650 mg Q6H PRN ORAL Mild Pain/Temp > 101 11/09/17 21:30 12/09/17 21:29 Albumin Human 500 ml @ 0 mls/hr Q0M IV 11/21/17 15:00 12/21/17 14:59 Dextrose 1,000 ml @ 100 mls/hr Q10H IV 11/22/17 09:10 12/22/17 09:09 11/24/17 01:11 Fluconazole/ Sodium Chloride 100 ml @ 100 mls/hr Q24H IV 11/22/17 17:00 11/29/17 16:59 11/23/17 16:01 Folic Acid (Folate) 2 mg DAILY NG 11/22/17 09:00 12/20/17 20:59 11/24/17 08:53 Heparin Sodium (Porcine) (Heparin 5000 units/ml) 5,000 units EVERY 12 HOURS SUBQ 11/10/17 09:00 12/10/17 08:59 11/24/17 08:52 Lansoprazole (Prevacid) 30 mg DAILY NG 11/22/17 09:00 12/22/17 08:59 11/24/17 08:52 Levetiracetam 100 ml @ 400 mls/hr Q12HR IVPB 11/22/17 21:00 12/22/17 20:59 11/24/17 08:53 Midodrine (Pro-Amatine) 10 mg THREE TIMES A DAY ORAL 11/20/17 18:00 12/20/17 17:59 11/24/17 08:52 Ondansetron HCl (Zofran) 4 mg Q4H PRN IVP Nausea & Vomiting 11/09/17 21:30 12/09/17 21:29 Sennosides (Senokot) 1 tab DAILY PRN ORAL Constipation 11/09/17 21:30 12/09/17 21:29 Vancomycin HCl (Vanco rx to dose) 1 ea DAILY PRN MISC Per rx protocol 11/12/17 13:30 12/12/17 13:29 Laboratory Tests 11/24/17 06:45: Arterial Blood pH 7.380, Arterial Blood Partial Pressure CO2 45.5H, Arterial Blood Partial Pressure O2 77.9, Arterial Blood HCO3 26.9H, Arterial Blood Oxygen Saturation 94.2, Arterial Blood Base Excess 1.6, Yonathan Test Positive 11/24/17 08:30: Prothrombin Time 10.1, Prothromb Time International Ratio 1.0, Activated Partial Thromboplast Time 54H, Sodium Level 153H, Potassium Level 4.2, Chloride Level 120H, Carbon Dioxide Level 26, Anion Gap 7, Blood Urea Nitrogen 28H, Creatinine 2.0H, Estimat Glomerular Filtration Rate 26.0, Glucose Level 109H, Calcium Level 8.3L, Phosphorus Level 3.2, Magnesium Level 2.5H, Total Bilirubin 0.2, Direct Bilirubin < 0.1, Aspartate Amino Transf (AST/SGOT) 33, Alanine Aminotransferase (ALT/SGPT) 20, Alkaline Phosphatase 221H, Pro-B-Type Natriuretic Peptide 5469H, Total Protein 6.5, Albumin 2.0L, Globulin 4.6, Albumin/Globulin Ratio 0.4L 11/24/17 08:45: White Blood Count 9.0, Red Blood Count 2.80L, Hemoglobin 8.3L, Hematocrit 25.2L , Mean Corpuscular Volume 90, Mean Corpuscular Hemoglobin 29.7, Mean Corpuscular Hemoglobin Concent 33.0, Red Cell Distribution Width 15.3H, Platelet Count 164, Mean Platelet Volume 7.3, Neutrophils (%) (Auto) 78.5H, Lymphocytes (%) (Auto) 15.4L, Monocytes (%) (Auto) 3.6, Eosinophils (%) (Auto) 2.0, Basophils (%) (Auto) 0.5 Height (Feet): 5 Height (Inches): 2.00 Weight (Pounds): 128 Objective exam stable ANDRIYWILBER KINCAID Nov 24, 2017 11:04
[2017-11-24 12:00] VITALS: BP 97/58
--- NOTE | 2017-11-24 12:12 | Nephrology Progress Note ---
Assessment/Plan Problem List: (1) Acute renal failure (ARF) (2) Dehydration with hypernatremia (3) Severe sepsis (4) Shock (5) Dehydration, severe (6) Hypotension Assessment Acute kidney injury, likely on chronic kidney disease. Cr lowering Hypernatremia, with an initial sodium of 177. Na lowering Profound dehydration. improving Shock, likely septic. Hypercalcemia. on presentation Urinary tract infection. Has supraPubic cath History of traumatic brain injury, dementia, and seizure disorder. History of staghorn renal calculi with multiple UTIs, status post Plan NGT and Midodrine- K supplements as needed D5W Albumin bolus PRN KCL, Mag , Phos as needed Antibiotics Anemia yarbrough Monitor renal parameters- Avoid Nephrotoxics Due PEG- Consent taken when stable Subjective ROS Limited/Unobtainable: No Constitutional: Reports: malaise Objective Objective Last 24 Hour Vital Signs Date Time Temp Pulse Resp B/P (MAP) Pulse Ox O2 Delivery O2 Flow Rate FiO2 11/24/17 11:04 64 19 100 Facial 35 11/24/17 09:03 66 17 100 Facial 35 11/24/17 08:00 71 11/24/17 08:00 96.3 69 18 95/51 (66) 99 96.3 11/24/17 08:00 Bi-pap 11/24/17 08:00 35 11/24/17 06:44 100 Bi-pap 35 11/24/17 06:44 Bi-pap 35 11/24/17 06:39 66 20 100 Facial 35 11/24/17 05:14 59 18 99 Facial 35 11/24/17 04:00 97.6 67 16 102/58 (73) 100 97.6 11/24/17 04:00 Bi-pap 11/24/17 04:00 59 11/24/17 04:00 35 11/24/17 03:04 68 19 100 Facial 35 11/24/17 00:45 63 22 99 Facial 35 11/24/17 00:00 69 11/24/17 00:00 Bi-pap 11/23/17 23:55 97.3 63 16 97/43 (61) 100 97.3 11/23/17 22:43 66 24 100 Facial 35 11/23/17 22:00 35 11/23/17 20:43 58 16 100 Facial 35 11/23/17 20:00 Bi-pap 11/23/17 20:00 60 11/23/17 20:00 96.8 69 21 97/53 (68) 99 96.8 11/23/17 18:45 55 22 100 Facial 35 11/23/17 18:45 Bi-pap 35 11/23/17 18:45 100 Bi-pap 35 11/23/17 17:17 65 16 100 Facial 35 11/23/17 16:00 Bi-pap 11/23/17 16:00 35 11/23/17 16:00 56 11/23/17 15:53 97.9 62 20 110/56 (74) 100 97.9 11/23/17 15:05 63 17 99 Facial 35 11/23/17 12:57 61 19 100 Facial 35 Intake and Output 11/23/17 11/24/17 19:00 07:00 Intake Total 2525 ml 50 ml Output Total 1100 ml 400 ml Balance 1425 ml -350 ml Free Water 260 ml IV Total 1665 ml Tube Feeding 600 ml 50 ml Output Urine Total 1100 ml 400 ml Stool Total 0 ml Laboratory Tests 11/24/17 06:45: Arterial Blood pH 7.380, Arterial Blood Partial Pressure CO2 45.5H, Arterial Blood Partial Pressure O2 77.9, Arterial Blood HCO3 26.9H, Arterial Blood Oxygen Saturation 94.2, Arterial Blood Base Excess 1.6, Yonathan Test Positive 11/24/17 08:30: Prothrombin Time 10.1, Prothromb Time International Ratio 1.0, Activated Partial Thromboplast Time 54H, Sodium Level 153H, Potassium Level 4.2, Chloride Level 120H, Carbon Dioxide Level 26, Anion Gap 7, Blood Urea Nitrogen 28H, Creatinine 2.0H, Estimat Glomerular Filtration Rate 26.0, Glucose Level 109H, Calcium Level 8.3L, Phosphorus Level 3.2, Magnesium Level 2.5H, Total Bilirubin 0.2, Direct Bilirubin < 0.1, Aspartate Amino Transf (AST/SGOT) 33, Alanine Aminotransferase (ALT/SGPT) 20, Alkaline Phosphatase 221H, Pro-B-Type Natriuretic Peptide 5469H, Total Protein 6.5, Albumin 2.0L, Globulin 4.6, Albumin/Globulin Ratio 0.4L 11/24/17 08:45: White Blood Count 9.0, Red Blood Count 2.80L, Hemoglobin 8.3L, Hematocrit 25.2L , Mean Corpuscular Volume 90, Mean Corpuscular Hemoglobin 29.7, Mean Corpuscular Hemoglobin Concent 33.0, Red Cell Distribution Width 15.3H, Platelet Count 164, Mean Platelet Volume 7.3, Neutrophils (%) (Auto) 78.5H, Lymphocytes (%) (Auto) 15.4L, Monocytes (%) (Auto) 3.6, Eosinophils (%) (Auto) 2.0, Basophils (%) (Auto) 0.5 Height (Feet): 5 Height (Inches): 2.00 Weight (Pounds): 128 EENT: other - on BIPAP Cardiovascular: other - variable Respiratory/Chest: decreased breath sounds Abdomen: soft Objective no change Parrish Luo MD Nov 24, 2017 12:12
--- NOTE | 2017-11-24 12:44 | General Progress Note ---
Progress Note Progress Note Bioethics Committee Asked by rn social work Elizabeth Lincoln to meet regarding consent for G-tube placement in the young woman who is unable to swallow and on Bi-PAP. Her son gave verbal consent for a G-tube on 11/20 however the consent is only valid for 72 hours. Elizabeth has attempted to contact son again without success. Dr. Ulloa and I feel that under these circumstances, knowing that the son gave consent, the attending physician and one other physician can sign a consent for the G tube procedure to go forward. Her respiratory status has deteriorated and she is on bi-PAP. As to whether the procedure is safe to perform, ie intubation, that is left to the attending physician, GI and anesthesiologist to determine. Maged Landin M.D. Bioethics Committee Chair Maged Landin MD Nov 24, 2017 12:44
--- NOTE | 2017-11-24 13:12 | Consultation ---
Consult Note Consult Note Palliative care consult Requested by Dr. Montalvo Reason: Evaluation for comfort and end of life options Residence: assisted Nursing facility Primary care: Dr. 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 She is admitted on 11/09 with sepsis and ALOC. She has been treated with Abx and improved clinically. She failed swallow evaluation. I was asked to help with decision making about further medical treatment. She is awake, not following commands, contracted, seems comfortable. Pt would qualify to received hospice care if her next of kin or two physicians and ethic recommends hospice. Thanks you for this consult. I try to coordinate with geriatric social work professor a family meeting. Cruz Murray MD Nov 24, 2017 13:12
[2017-11-24] MEDS ORDERED: Tubing IV Secondary IV ONE (15:36)
--- NOTE | 2017-11-24 15:42 | Diagnostic Imaging Report ---
Indication: Dyspnea Technique: XRAY Chest 1v Comparison: 11/22/2017 FINDINGS/IMPRESSION: Enteric tube unchanged. Visualized portions of a ventriculoperitoneal shunt are unremarkable, without discrete discontinuity. Heart size and mediastinal contours stable. Interval improved aeration with persistent but decreased interstitial and airspace opacities in the right lung. Costophrenic sulci are sharp. There is no pneumothorax. Interval decreased prominence of the gastric air bubble.
[2017-11-24 16:00] VITALS: BP 105/47
--- NOTE | 2017-11-24 16:38 | Infectious Diseases Prog Note ---
Assessment/Plan Problems: (1) Catheter-associated urinary tract infection Assessment & Plan: with nahed spp , recommend to change suprapubic catheter since it is colonized with yeast, continue fluconazole for 14 days (2) Altered mental state Assessment & Plan: back to the baseline , neurology is following, head CT no acute pathology (3) Acute pyelonephritis Assessment & Plan: with MDR Providencia stuartii, and MRSA , suspect due to right ureter stent obstruction, S/P vancomycin to cover for MRSA , and ertapenem for MDR Providencia stuartii for two weeks total , urology eval is in progress , may need stent removal . (4) Hydronephrosis of right kidney Assessment & Plan: suspect ureter stent malfunction , urology eval is in progress, may need stent removal (5) Severe sepsis Assessment & Plan: with staph simulans , most likely contamination , grew from one set only. S/P vancomycin for two weeks for MRSA pyelonephritis, repeated blood culture is negative (6) Renal failure Assessment & Plan: continue aggressive hydration , monitor renal function, avoid nephrotoxics (7) Left shoulder pain Assessment & Plan: due to chronic rotator cuff syndrom, as evident by X ray , folllow up with ortho (8) Colonization with VRE (vancomycin-resistant enterococcus) Assessment & Plan: keep in contact isolation (9) Hypotension Assessment & Plan: doubt due to sepsis , suspect dehydration . cortisol level looks ok . repeated blood culture is negative (10) Diarrhea Assessment & Plan: not due to C diff with negative toxin , continue aggressive hydration Subjective ROS Limited/Unobtainable: Yes Allergies: Coded Allergies: CEFEPIME (Unverified Allergy, Unknown, 11/09/17) Subjective she was lying in bed, awake , responds to calling her name , nonverbal , on BIPAP machine , a febrile Objective Vital Signs Last 24 Hour Vital Signs Date Time Temp Pulse Resp B/P (MAP) Pulse Ox O2 Delivery O2 Flow Rate FiO2 11/24/17 16:00 96.4 84 20 105/47 (66) 95 96.4 11/24/17 16:00 35 11/24/17 16:00 Bi-pap 11/24/17 13:01 67 100 11/24/17 12:00 35 11/24/17 12:00 Bi-pap 11/24/17 12:00 96.5 65 18 97/58 (71) 100 96.5 9/24/18 12:00 62 11/24/17 11:04 64 19 100 Facial 35 11/24/17 09:03 66 17 100 Facial 35 11/24/17 08:00 71 11/24/17 08:00 96.3 69 18 95/51 (66) 99 96.3 11/24/17 08:00 Bi-pap 11/24/17 08:00 35 11/24/17 06:44 100 Bi-pap 35 11/24/17 06:44 Bi-pap 35 11/24/17 06:39 66 20 100 Facial 35 11/24/17 05:14 59 18 99 Facial 35 11/24/17 04:00 97.6 67 16 102/58 (73) 100 97.6 11/24/17 04:00 Bi-pap 11/24/17 04:00 59 11/24/17 04:00 35 11/24/17 03:04 68 19 100 Facial 35 11/24/17 00:45 63 22 99 Facial 35 11/24/17 00:00 69 11/24/17 00:00 Bi-pap 11/23/17 23:55 97.3 63 16 97/43 (61) 100 97.3 11/23/17 22:43 66 24 100 Facial 35 11/23/17 22:00 35 11/23/17 20:43 58 16 100 Facial 35 11/23/17 20:00 Bi-pap 11/23/17 20:00 60 11/23/17 20:00 96.8 69 21 97/53 (68) 99 96.8 11/23/17 18:45 55 22 100 Facial 35 11/23/17 18:45 Bi-pap 35 11/23/17 18:45 100 Bi-pap 35 11/23/17 17:17 65 16 100 Facial 35 Height (Feet): 5 Height (Inches): 2.00 Weight (Pounds): 128 General Appearance: WD/WN, no acute distress HEENT: atraumatic, anicteric, mucous membranes moist, PERRL, pharynx normal, supple, no JVD Respiratory/Chest: chest wall non-tender, no respiratory distress, no accessory muscle use, decreased breath sounds, crackles/rales Cardiovascular: normal peripheral pulses, normal rate, regular rhythm, no gallop/murmur, no JVD Abdomen: normal bowel sounds, soft, non tender, no organomegaly, non distended , no mass, no scars Extremities: no cyanosis, no clubbing Skin: no rash, no lesions, no ulcers Neurologic/Psychiatric: alert, responsive Lymphatic: no neck adenopathy, no groin adenopathy Musculoskeletal: normal muscle bulk, no effusion Laboratory Tests Test 11/24/17 06:45 11/24/17 08:30 11/24/17 08:45 11/24/17 14:45 Arterial Blood pH 7.380 (7.350-7.450) 7.372 (7.350-7.450) Arterial Blood Partial Pressure CO2 45.5 mmHg (35.0-45.0) H 46.1 mmHg (35.0-45.0) H Arterial Blood Partial Pressure O2 77.9 mmHg (75.0-100.0) 113.5 mmHg (75.0-100.0) H Arterial Blood HCO3 26.9 mmol/L (22.0-26.0) H 26.2 mmol/L (22.0-26.0) H Arterial Blood Oxygen Saturation 94.2 % (92.0-98.0) 97.4 % (92.0-98.0) Arterial Blood Base Excess 1.6 0.7 Yonathan Test Positive Positive Prothrombin Time 10.1 SEC (9.30-11.50) Prothromb Time International Ratio 1.0 (0.9-1.1) Activated Partial Thromboplast Time 54 SEC (23-33) H Sodium Level 153 MMOL/L (136-145) H Potassium Level 4.2 MMOL/L (3.5-5.1) Chloride Level 120 MMOL/L (98-107) H Carbon Dioxide Level 26 MMOL/L (21-32) Anion Gap 7 mmol/L (5-15) Blood Urea Nitrogen 28 mg/dL (7-18) H Creatinine 2.0 MG/DL (0.55-1.30) H Estimat Glomerular Filtration Rate 26.0 mL/min (>60) Glucose Level 109 MG/DL (74-106) H Calcium Level 8.3 MG/DL (8.5-10.1) L Phosphorus Level 3.2 MG/DL (2.5-4.9) Magnesium Level 2.5 MG/DL (1.8-2.4) H Total Bilirubin 0.2 MG/DL (0.2-1.0) Direct Bilirubin < 0.1 MG/DL (0.0-0.3) Aspartate Amino Transf (AST/SGOT) 33 U/L (15-37) Alanine Aminotransferase (ALT/SGPT) 20 U/L (12-78) Alkaline Phosphatase 221 U/L (46-116) H Pro-B-Type Natriuretic Peptide 6608 pg/mL (0-125) H Total Protein 6.5 G/DL (6.4-8.2) Albumin 2.0 G/DL (3.4-5.0) L Globulin 4.6 g/dL Albumin/Globulin Ratio 0.4 (1.0-2.7) L White Blood Count 9.0 K/UL (4.8-10.8) Red Blood Count 2.80 M/UL (4.20-5.40) L Hemoglobin 8.3 G/DL (12.0-16.0) L Hematocrit 25.2 % (37.0-47.0) L Mean Corpuscular Volume 90 FL (80-99) Mean Corpuscular Hemoglobin 29.7 PG (27.0-31.0) Mean Corpuscular Hemoglobin Concent 33.0 G/DL (32.0-36.0) Red Cell Distribution Width 15.3 % (11.6-14.8) H Platelet Count 164 K/UL (150-450) Mean Platelet Volume 7.3 FL (6.5-10.1) Neutrophils (%) (Auto) 78.5 % (45.0-75.0) H Lymphocytes (%) (Auto) 15.4 % (20.0-45.0) L Monocytes (%) (Auto) 3.6 % (1.0-10.0) Eosinophils (%) (Auto) 2.0 % (0.0-3.0) Basophils (%) (Auto) 0.5 % (0.0-2.0) Current Medications Medications (Trade) Dose Ordered Sig/Tay Route PRN Reason Start Time Stop Time Status Last Admin Dose Admin Acetaminophen (Tylenol) 650 mg Q6H PRN ORAL Mild Pain/Temp > 101 11/09/17 21:30 12/09/17 21:29 Albumin Human 500 ml @ 0 mls/hr Q0M IV 11/21/17 15:00 12/21/17 14:59 Dextrose 1,000 ml @ 100 mls/hr Q10H IV 11/22/17 09:10 12/22/17 09:09 11/24/17 12:40 Fluconazole/ Sodium Chloride 100 ml @ 100 mls/hr Q24H IV 11/22/17 17:00 11/29/17 16:59 11/23/17 16:01 Folic Acid (Folate) 2 mg DAILY NG 11/22/17 09:00 12/20/17 20:59 11/24/17 08:53 Heparin Sodium (Porcine) (Heparin 5000 units/ml) 5,000 units EVERY 12 HOURS SUBQ 11/10/17 09:00 12/10/17 08:59 11/24/17 08:52 Lansoprazole (Prevacid) 30 mg DAILY NG 11/22/17 09:00 12/22/17 08:59 11/24/17 08:52 Levetiracetam 100 ml @ 400 mls/hr Q12HR IVPB 11/22/17 21:00 12/22/17 20:59 11/24/17 08:53 Midodrine (Pro-Amatine) 10 mg THREE TIMES A DAY ORAL 11/20/17 18:00 12/20/17 17:59 11/24/17 12:40 Ondansetron HCl (Zofran) 4 mg Q4H PRN IVP Nausea & Vomiting 11/09/17 21:30 12/09/17 21:29 Sennosides (Senokot) 1 tab DAILY PRN ORAL Constipation 11/09/17 21:30 12/09/17 21:29 Vancomycin HCl (Vanco rx to dose) 1 ea DAILY PRN MISC Per rx protocol 11/12/17 13:30 12/12/17 13:29 Kortney Quiñones M.D. Nov 24, 2017 16:38
[2017-11-24 20:00] VITALS: BP 104/43
--- NOTE | 2017-11-24 21:45 | Progress Note ---
DATE: 11/24/2017 EVENTS OVERNIGHT AND SUBJECTIVE: Weekend events reviewed. The patient with increased work of breathing throughout the weekend, was placed on BiPAP by (my coverage). Her oxygenation has been stable on BiPAP with an FiO2 of 35%. This morning's ABG is 7.38/45/77/26/94. Per RT, the patient has had mild moderate thick yellow secretions, freely. White count is 9, hemoglobin is 8.3 and platelet count 164. Sodium is 153, BUN and creatinine 28 and 2. BNP is 6248. Chest x-ray is improved from prior. No history is obtainable from the patient. Ongoing issues with consent for the G-tube . She has been tolerating NG tube feeds. OBJECTIVE: VITAL SIGNS: Temperature is 96.5 degrees, pulse 65, blood pressure 97/58, and respiratory rate 65. She is on BiPAP at the time of my exam, saturating 100% FiO2 35%. Awake and nonverbal. HEENT: Normocephalic and atraumatic. She had a BiPAP mask and NG tube on. NECK: Supple. CHEST: Scattered coarse breath sounds. HEART: Regular rate and rhythm. ABDOMEN: Soft, nontender, and nondistended. EXTREMITIES: No cyanosis or clubbing. There is marked contractions noted. ANCILLARY DATA: Sodium 153, potassium 4.2, chloride 120, bicarbonate 26, BUN 28, creatinine 2, glucose 109, and calcium 8.3. Magnesium 2.5. Phosphorus 3.2. Alkaline phosphatase 223. ProBNP 6248. Total protein 6.6. Albumin 2.0. White count 9.0, hemoglobin 8.3, and platelet count 164. Imaging is unchanged. ASSESSMENT: The patient is a 52-year-old very unfortunate female with a history of traumatic brain injury, minimally verbal at baseline, dysphagia, prior tracheostomy, staghorn renal calculi, suprapubic catheter, multiple medical problems, admitted with dehydration, acute kidney injury, sepsis, UTI, progressive encephalopathy, now with worsening respiratory failure over the course of the last few days. Of utmost importance in this case remains overall goals of care. For this reason, I have asked for palliative care consultation. PROBLEM LIST: 1. Respiratory failure, on and off BiPAP. 2. Systemic inflammatory response syndrome. 3. Shock. 4. Dehydration. 5. Hypernatremia. 6. Anion-gap metabolic acidosis. 7. WEN on CKD. 8. Hypercalcemia. 9. UTI. 10. TBI/dementia/seizure disorder. 11. History of prior tracheostomy, status post takedown. 12. History of staghorn renal calculi with multiple UTIs, status post suprapubic catheter placement. 13. intermediate resident. 14. Nonverbal at baseline. 15. Bed bound. 16. Full Code. TREATMENT PLAN: 1. Change BiPAP to at bedtime and p.r.n. only. 2. Titrate on FiO2 to keep saturations greater than 90%. 3. NG tube feeds only when the patient is stable and off of BiPAP. 4. Ongoing goals of care discussion. 5. Palliative care consultation. 6. Plan family meeting. 7. P.r.n. nebulizers. 8. Antibiotics per ID. 9. Monitor volumes and renal function. 10. Follow up Renal . 11. Follow up neurology recommendations. 12. The patient is a Full Code, but as I stated, we will continue to discuss goals of care. Jose Montalvo M.D. DR: QI JOB#: [id number] CC:
--- NOTE | 2017-11-24 21:52 | Neurology Progress Note ---
Interim History Interim History Interim History Ms. Guaman is on BiPAP now. She is non verbal. She she is awake but not alert. She is cognitively impoverished. She is motorically challenged. As per her nurse there has been no change in her neurologic state. She has exhibited no clinical seizures. Review of Systems Neuro Review of Systems Unable to obtain. Objective Physical Exam Last Vital Signs Date Time Temp Pulse Resp B/P (MAP) Pulse Ox O2 Delivery O2 Flow Rate FiO2 11/24/17 19:28 95 Bi-pap 35 11/24/17 19:20 68 26 11/24/17 16:00 96.4 105/47 (66) 96.4 11/22/17 16:00 4.0 Laboratory Tests Test 11/24/17 06:45 11/24/17 08:30 11/24/17 08:45 11/24/17 14:45 Arterial Blood pH 7.380 (7.350-7.450) 7.372 (7.350-7.450) Arterial Blood Partial Pressure CO2 45.5 mmHg (35.0-45.0) H 46.1 mmHg (35.0-45.0) H Arterial Blood Partial Pressure O2 77.9 mmHg (75.0-100.0) 113.5 mmHg (75.0-100.0) H Arterial Blood HCO3 26.9 mmol/L (22.0-26.0) H 26.2 mmol/L (22.0-26.0) H Arterial Blood Oxygen Saturation 94.2 % (92.0-98.0) 97.4 % (92.0-98.0) Arterial Blood Base Excess 1.6 0.7 Yonathan Test Positive Positive Prothrombin Time 10.1 SEC (9.30-11.50) Prothromb Time International Ratio 1.0 (0.9-1.1) Activated Partial Thromboplast Time 54 SEC (23-33) H Sodium Level 153 MMOL/L (136-145) H Potassium Level 4.2 MMOL/L (3.5-5.1) Chloride Level 120 MMOL/L (98-107) H Carbon Dioxide Level 26 MMOL/L (21-32) Anion Gap 7 mmol/L (5-15) Blood Urea Nitrogen 28 mg/dL (7-18) H Creatinine 2.0 MG/DL (0.55-1.30) H Estimat Glomerular Filtration Rate 26.0 mL/min (>60) Glucose Level 109 MG/DL (74-106) H Calcium Level 8.3 MG/DL (8.5-10.1) L Phosphorus Level 3.2 MG/DL (2.5-4.9) Magnesium Level 2.5 MG/DL (1.8-2.4) H Total Bilirubin 0.2 MG/DL (0.2-1.0) Direct Bilirubin < 0.1 MG/DL (0.0-0.3) Aspartate Amino Transf (AST/SGOT) 33 U/L (15-37) Alanine Aminotransferase (ALT/SGPT) 20 U/L (12-78) Alkaline Phosphatase 221 U/L (46-116) H Pro-B-Type Natriuretic Peptide 6608 pg/mL (0-125) H Total Protein 6.5 G/DL (6.4-8.2) Albumin 2.0 G/DL (3.4-5.0) L Globulin 4.6 g/dL Albumin/Globulin Ratio 0.4 (1.0-2.7) L White Blood Count 9.0 K/UL (4.8-10.8) Red Blood Count 2.80 M/UL (4.20-5.40) L Hemoglobin 8.3 G/DL (12.0-16.0) L Hematocrit 25.2 % (37.0-47.0) L Mean Corpuscular Volume 90 FL (80-99) Mean Corpuscular Hemoglobin 29.7 PG (27.0-31.0) Mean Corpuscular Hemoglobin Concent 33.0 G/DL (32.0-36.0) Red Cell Distribution Width 15.3 % (11.6-14.8) H Platelet Count 164 K/UL (150-450) Mean Platelet Volume 7.3 FL (6.5-10.1) Neutrophils (%) (Auto) 78.5 % (45.0-75.0) H Lymphocytes (%) (Auto) 15.4 % (20.0-45.0) L Monocytes (%) (Auto) 3.6 % (1.0-10.0) Eosinophils (%) (Auto) 2.0 % (0.0-3.0) Basophils (%) (Auto) 0.5 % (0.0-2.0) Neurologic Exam Objective PHYSICAL EXAMINATION: GENERAL: She is a well-developed and well-nourished lady, lying in bed , in no acute distress. HEAD: Normocephalic with right craniectomy defect. EENT: Examination benign. NECK: No neck rigidity was observed. NEUROLOGICAL EXAMINATION: MENTAL STATUS EXAMINATION: She awake but not alert. She was mumbling. Further mental status testing was impossible. SPEECH: She was mumbling and had a BiPAP mask on. LANGUAGE: Could not be tested. CRANIAL NERVE EXAMINATION: II: She did blink to threat. III, IV & : The eyes were dysconjugate. External ocular movements were present on oculocephalic maneuvers. The pupils were 3 mm in diameter, equal, round, regular, and reactive sluggishly to light. V & VII: Corneal reflexes were present, but brisker on the right than on the left. VIII: She did respond to sounds and had no nystagmus. IX & X: The gag reflex was absent. IX: Sternocleidomastoids and trapezii did function minimally on applying deep painful stimuli. XII: Tongue in the midline. MOTOR SYSTEM: The tone was increased in both lower extremities with spasticity. The tone was relatively normal in the right upper extremity but was diminished in the left upper extremity. Examination of muscle mass revealed wasting of the left upper and lower extremities and in addition a flexion contracture at the elbow. The examination of power was impossible to perform accurately as she did not move her left side at all and moved her right side minimally in a nonpurposeful manner. SENSORY EXAMINATION: She responded to deep pain on the right side but not the left. REFLEXES: 2+ on the left and 2++ on the right at the biceps, triceps, brachioradialis, and knees, 0 at both ankles. The plantar responses were extensor bilaterally. COORDINATION, STANCE & GAIT: Could not be tested. Impression/Recommendations Diagnostic Impression 1. Ms. Yumiko Guaman is a 52-year-old, lady, of unknown handedness, who does have a past history of severe brain trauma with a right-sided craniectomy and significant right brain encephalomalacia. She also has a history of a seizure disorder that is undefined. She has a left plegia and prior episodes of respiratory failure, urinary tract infections, and multiple episodes of sepsis. She was hospitalized on 11/09/2017 for a urinary tract infection associated with sepsis but her mental state improved with treatment of those conditions. on 11/20/17 there was a sudden decline in her level of arousal. 2. She is on BiPAP now. She is non-verbal. She she is awake but not alert. She is cognitively impoverished. She is motorically challenged. As per her nurse there has been no change in her neurologic state. She has exhibited no clinical seizures. 3. On neurological examination at this time, she does demonstrate a right-sided craniectomy. She is awake but not alert. She is mumbling when asked questions. Further mental status testing is impossible. Language cannot be tested. She does blink to visual threat. The corneal reflexes are diminished on the left side compared to the right. She has left upper extremity greater than lower extremity contractures and left-sided plegia and significant right-sided hemiparesis. She only responds to deep pain on the right side with minimal withdrawal but not on the left side. The deep tendon reflexes are brisker on the right side compared to the left and she has extensor plantar responses bilaterally. 4. CT scan of the brain without contrast performed on 11/20/2017 revealed a large right convexity craniectomy and extensive underlying temporal and parietal encephalomalacia. There was also encephalomalacia of the right cerebellum. There was a left frontal craniotomy defect with overlying mesh. There was no significant underlying parenchymal abnormality on the left side. She also had right-sided ventriculostomy. No acute pathology was noted. 5. Laboratory data revealed that she was anemic with a hemoglobin of 10.5 G. Her WBC count was 10,000 but she had a left-sided shift with 80% polymorphonuclear leukocytes. The chemistry panel revealed a creatinine elevated to 2.0. The ammonia was minimally elevated at 34. The Vitamin B12 level and TSH were normal. The Folate was minimally low at 3.9. The Urinalysis that was done on 11/09/2017 revealed 3+ leukocyte esterase, 40-60 RBCs and 40-60 WBCs per high-power field. Her latest arterial blood gas revealed a pH of 7.35, pCO2 of 42, and pO2 of 60. 6. The EEG done on 11/21/17 revealed severe generalized cerebral dysfunction and multiple electrographic seizures emanating from the right fronto-central region sometimes lasting al long as 120 seconds. 7. The patient's history, neurological examination, and laboratory data and imaging studies are most compatible with worsening of a toxic metabolic encephalopathy and in addition subclinical electrographic seizures emanating from the right fronto-central region. Recommendations 1. Continue present management. 2. Continue present therapeutic management. 3. Continue aggressive antibiotic treatment. 4. Continue to correct the patient's toxic metabolic imbalances. 5. Continue Keppra to 1000 mg IV q 12 hours. 6. Repeat EEG. 7. Observe closely. Roseann Barnes M.D., M.S.P.Kathia. ROSEANN BARNES Nov 24, 2017 21:51
[2017-11-25] VITALS (9 sets, daily range): BP systolic 81–120; BP diastolic 50–69
[2017-11-25 05:46] LABS: BASOPHILS % (AUTO) 0.7 % (0.0-2.0); HEMATOCRIT 26.7 % (37.0-47.0); HEMOGLOBIN 8.5 G/DL (12.0-16.0); LYMPHOCYTES % (AUTO) 19.3 % (20.0-45.0); MEAN CORPUSCULAR VOLUME 90 FL (80-99); MONOCYTES % (AUTO) 3.7 % (1.0-10.0); NEUTROPHILS % (AUTO) 74.3 % (45.0-75.0); PLATELET COUNT 159 K/UL (150-450); RED BLOOD COUNT 2.96 M/UL (4.20-5.40); RED CELL DISTRIBUTION WIDTH 15.3 % (11.6-14.8); WHITE BLOOD COUNT 8.1 K/UL (4.8-10.8)
[2017-11-25 05:56] LABS: ANION GAP 8 mmol/L (5-15); BLOOD UREA NITROGEN 30 mg/dL (7-18); CALCIUM 8.7 MG/DL (8.5-10.1); CARBON DIOXIDE 27 MMOL/L (21-32); CHLORIDE 118 MMOL/L (98-107); POTASSIUM 4.1 MMOL/L (3.5-5.1); SODIUM 153 MMOL/L (136-145)
[2017-11-25] MEDS: Midodrine 10mg tab ORAL SCH ×3 (08:23→17:57)
[2017-11-25] MEDS: Heparin 5000 units/ml inj SUBQ SCH ×2 (08:25→20:03)
[2017-11-25] MEDS: levETIRAcetam 1,000mg/NS100ml 100 ML IVPB SCH (08:30)
--- NOTE | 2017-11-25 10:16 | Urology Progress Note ---
Assessment/Plan Assessment/Plan 1. History of hydronephrosis that is chronic. 2. Renal insufficiency, acute on chronic, labile. 3. Hematuria. 4. Pyuria/UTI/colonized. 5. Proteinuria. 6. Urinary retention with chronic suprapubic tube. 7. Neurogenic bladder. sp tube indwelling, last exchanged 11/18 hand irrigated, patent abx as ordered, diflucan monitor renal fxn need old recs indwelling ureteral stents can be addressed by pt's outside urologist once medically more stable Subjective Allergies: Coded Allergies: CEFEPIME (Unverified Allergy, Unknown, 11/09/17) Subjective all noted Objective Last 24 Hour Vital Signs Date Time Temp Pulse Resp B/P (MAP) Pulse Ox O2 Delivery O2 Flow Rate FiO2 11/25/17 09:10 64 11/25/17 08:31 81 20 93/57 (69) 100 11/25/17 08:00 20 86/55 (65) 100 11/25/17 08:00 Nasal Cannula 3.0 11/25/17 08:00 3.0 11/25/17 07:59 95.7 72 20 81/50 (60) 100 95.7 11/25/17 07:00 35 11/25/17 04:59 70 18 100 Facial 35 11/25/17 04:00 Bi-pap 11/25/17 04:00 78 11/25/17 04:00 35 11/25/17 04:00 96.3 79 22 100/54 (69) 98 96.3 11/25/17 03:30 78 20 100 Facial 35 11/25/17 01:30 72 20 100 Facial 35 11/25/17 00:00 Bi-pap 11/25/17 00:00 96.3 62 24 92/53 (66) 100 96.3 11/25/17 00:00 62 11/24/17 23:25 66 18 97 Facial 35 11/24/17 21:20 97 20 98 Facial 35 11/24/17 20:00 35 11/24/17 20:00 96.4 97 20 104/43 (63) 96 96.4 11/24/17 20:00 97 11/24/17 20:00 Bi-pap 11/24/17 19:28 95 Bi-pap 35 11/24/17 19:28 Bi-pap 35 11/24/17 19:20 68 26 94 Facial 35 11/24/17 16:00 96.4 84 20 105/47 (66) 95 96.4 11/24/17 16:00 35 11/24/17 16:00 Bi-pap 11/24/17 16:00 81 11/24/17 13:01 67 100 11/24/17 12:00 35 11/24/17 12:00 Bi-pap 11/24/17 12:00 96.5 65 18 97/58 (71) 100 96.5 11/24/17 12:00 62 11/24/17 11:04 64 19 100 Facial 35 Intake and Output 11/24/17 11/25/17 19:00 07:00 Intake Total 1650 ml 950 ml Output Total 1350 ml 1550 ml Balance 300 ml -600 ml Free Water 150 ml 50 ml IV Total 1150 ml 900 ml Tube Feeding 350 ml Output Urine Total 1350 ml 1550 ml # Bowel Movements 1 1 Microbiology Date/Time Source Procedure Growth Status 11/13/17 15:10 Blood Blood Culture - Final NO GROWTH AFTER 5 DAYS Complete 11/09/17 20:25 Nasal Nares MRSA Culture - Final Staphylococcus Aureus - Mrsa Complete 11/21/17 14:30 Stool Clostridium difficile Toxin Assay - Final Complete 11/20/17 19:14 Urine,Clean Catch Urine Culture - Final Amy Albicans Complete 11/10/17 20:25 Rectum - Final NO CARBAPENEM-RESISTANT ENTEROBACTERI... Complete Current Medications Medications (Trade) Dose Ordered Sig/Tay Route PRN Reason Start Time Stop Time Status Last Admin Dose Admin Acetaminophen (Tylenol) 650 mg Q6H PRN ORAL Mild Pain/Temp > 101 11/09/17 21:30 12/09/17 21:29 Albumin Human 500 ml @ 0 mls/hr Q0M IV 11/21/17 15:00 12/21/17 14:59 Dextrose 1,000 ml @ 100 mls/hr Q10H IV 11/22/17 09:10 12/22/17 09:09 11/25/17 06:46 Fluconazole/ Sodium Chloride 100 ml @ 100 mls/hr Q24H IV 11/22/17 17:00 11/29/17 16:59 11/24/17 17:13 Folic Acid (Folate) 2 mg DAILY NG 11/22/17 09:00 12/20/17 20:59 11/25/17 08:23 Heparin Sodium (Porcine) (Heparin 5000 units/ml) 5,000 units EVERY 12 HOURS SUBQ 11/10/17 09:00 12/10/17 08:59 11/25/17 08:25 Lansoprazole (Prevacid) 30 mg DAILY NG 11/22/17 09:00 12/22/17 08:59 11/25/17 08:23 Levetiracetam 100 ml @ 400 mls/hr Q12HR IVPB 11/22/17 21:00 12/22/17 20:59 11/25/17 08:30 Midodrine (Pro-Amatine) 10 mg THREE TIMES A DAY ORAL 11/20/17 18:00 12/20/17 17:59 11/25/17 08:23 Ondansetron HCl (Zofran) 4 mg Q4H PRN IVP Nausea & Vomiting 11/09/17 21:30 12/09/17 21:29 Sennosides (Senokot) 1 tab DAILY PRN ORAL Constipation 11/09/17 21:30 12/09/17 21:29 Laboratory Tests 11/24/17 14:45: Arterial Blood pH 7.372, Arterial Blood Partial Pressure CO2 46.1H, Arterial Blood Partial Pressure O2 113.5H, Arterial Blood HCO3 26.2H, Arterial Blood Oxygen Saturation 97.4, Arterial Blood Base Excess 0.7, Yonathan Test Positive 11/25/17 04:51: White Blood Count 8.1, Red Blood Count 2.96L, Hemoglobin 8.5L, Hematocrit 26.7L , Mean Corpuscular Volume 90, Mean Corpuscular Hemoglobin 28.8, Mean Corpuscular Hemoglobin Concent 31.9L, Red Cell Distribution Width 15.3H, Platelet Count 159, Mean Platelet Volume 7.1, Neutrophils (%) (Auto) 74.3, Lymphocytes (%) (Auto) 19.3L, Monocytes (%) (Auto) 3.7, Eosinophils (%) (Auto) 2.0, Basophils (%) (Auto) 0.7, Sodium Level 153H, Potassium Level 4.1, Chloride Level 118H, Carbon Dioxide Level 27, Anion Gap 8, Blood Urea Nitrogen 30H, Creatinine 2.0H, Estimat Glomerular Filtration Rate 26.0, Glucose Level 88, Calcium Level 8.7 Height (Feet): 5 Height (Inches): 2.00 Weight (Pounds): 128 Objective exam stable WILBER GALINDO Nov 25, 2017 10:16
--- NOTE | 2017-11-25 11:03 | Nephrology Progress Note ---
Assessment/Plan Problem List: (1) Hypotension (2) Acute renal failure (ARF) (3) Dehydration with hypernatremia (4) Severe sepsis (5) Shock (6) Dehydration, severe Assessment Acute kidney injury, likely on chronic kidney disease. Cr lowering Hypernatremia, with an initial sodium of 177. Na lowering Profound dehydration. improving Shock, likely septic. Hypercalcemia. on presentation Urinary tract infection. Has supraPubic cath History of traumatic brain injury, dementia, and seizure disorder. History of staghorn renal calculi with multiple UTIs, status post Plan NGT and Midodrine- K supplements as needed D5W Albumin bolus PRN KCL, Mag , Phos as needed Antibiotics Anemia yarbrough Monitor renal parameters- Avoid Nephrotoxics Due PEG- Consent taken when stable Subjective ROS Limited/Unobtainable: No Constitutional: Reports: malaise, weakness Objective Objective Last 24 Hour Vital Signs Date Time Temp Pulse Resp B/P (MAP) Pulse Ox O2 Delivery O2 Flow Rate FiO2 11/25/17 10:44 Nasal Cannula 2.0 28 11/25/17 10:44 95 Nasal Cannula 2.0 28 11/25/17 09:10 64 11/25/17 08:31 81 20 93/57 (69) 100 11/25/17 08:00 20 86/55 (65) 100 11/25/17 08:00 Nasal Cannula 3.0 11/25/17 08:00 3.0 11/25/17 07:59 95.7 72 20 81/50 (60) 100 95.7 11/25/17 07:00 35 11/25/17 04:59 70 18 100 Facial 35 11/25/17 04:00 Bi-pap 11/25/17 04:00 78 11/25/17 04:00 35 11/25/17 04:00 96.3 79 22 100/54 (69) 98 96.3 11/25/17 03:30 78 20 100 Facial 35 11/25/17 01:30 72 20 100 Facial 35 11/25/17 00:00 Bi-pap 11/25/17 00:00 96.3 62 24 92/53 (66) 100 96.3 11/25/17 00:00 62 11/24/17 23:25 66 18 97 Facial 35 11/24/17 21:20 97 20 98 Facial 35 11/24/17 20:00 35 11/24/17 20:00 96.4 97 20 104/43 (63) 96 96.4 11/24/17 20:00 97 11/24/17 20:00 Bi-pap 11/24/17 19:28 95 Bi-pap 35 11/24/17 19:28 Bi-pap 35 11/24/17 19:20 68 26 94 Facial 35 11/24/17 16:00 96.4 84 20 105/47 (66) 95 96.4 11/24/17 16:00 35 11/24/17 16:00 Bi-pap 11/24/17 16:00 81 11/24/17 13:01 67 100 11/24/17 12:00 35 11/24/17 12:00 Bi-pap 11/24/17 12:00 96.5 65 18 97/58 (71) 100 96.5 11/24/17 12:00 62 11/24/17 11:04 64 19 100 Facial 35 Intake and Output 11/24/17 11/25/17 19:00 07:00 Intake Total 1650 ml 950 ml Output Total 1350 ml 1550 ml Balance 300 ml -600 ml Free Water 150 ml 50 ml IV Total 1150 ml 900 ml Tube Feeding 350 ml Output Urine Total 1350 ml 1550 ml # Bowel Movements 1 1 Laboratory Tests 11/24/17 14:45: Arterial Blood pH 7.372, Arterial Blood Partial Pressure CO2 46.1H, Arterial Blood Partial Pressure O2 113.5H, Arterial Blood HCO3 26.2H, Arterial Blood Oxygen Saturation 97.4, Arterial Blood Base Excess 0.7, Yonathan Test Positive 11/25/17 04:51: White Blood Count 8.1, Red Blood Count 2.96L, Hemoglobin 8.5L, Hematocrit 26.7L , Mean Corpuscular Volume 90, Mean Corpuscular Hemoglobin 28.8, Mean Corpuscular Hemoglobin Concent 31.9L, Red Cell Distribution Width 15.3H, Platelet Count 159, Mean Platelet Volume 7.1, Neutrophils (%) (Auto) 74.3, Lymphocytes (%) (Auto) 19.3L, Monocytes (%) (Auto) 3.7, Eosinophils (%) (Auto) 2.0, Basophils (%) (Auto) 0.7, Sodium Level 153H, Potassium Level 4.1, Chloride Level 118H, Carbon Dioxide Level 27, Anion Gap 8, Blood Urea Nitrogen 30H, Creatinine 2.0H, Estimat Glomerular Filtration Rate 26.0, Glucose Level 88, Calcium Level 8.7 Height (Feet): 5 Height (Inches): 2.00 Weight (Pounds): 128 General Appearance: no apparent distress Objective no change Parrish Luo MD Nov 25, 2017 11:03
--- NOTE | 2017-11-25 14:08 | GI Progress Note ---
Assessment/Plan Problems: (1) Electrolyte imbalance ICD Codes: E87.8 - Other disorders of electrolyte and fluid balance, not elsewhere classified SNOMED: 862053199 (2) Encounter for PEG (percutaneous endoscopic gastrostomy) ICD Codes: Z43.1 - Encounter for attention to gastrostomy SNOMED: 226478649, 302362960 (3) Dehydration ICD Codes: E86.0 - Dehydration SNOMED: 76140445 (4) Dehydration, severe ICD Codes: E86.0 - Dehydration SNOMED: 943476344 Status: unchanged Status Narrative Discussed with Dr. Chan. Assessment/Plan bioethics note reviewed >> will discuss with primary regarding PEG, schedule when stable NGT IV hydration electrolyte correction per Nephro ppi bowel regime fu labs The patient was seen and examined at bedside and all new and available data was reviewed in the patients chart. I agree with the above findings, impression and plan. (Patient seen earlier today. Signature stamp does not reflect patient encounter time.). - Laith Chan MD Subjective Subjective limited Objective Last 24 Hour Vital Signs Date Time Temp Pulse Resp B/P (MAP) Pulse Ox O2 Delivery O2 Flow Rate FiO2 11/25/17 12:25 96.0 76 20 115/68 (84) 92 96.0 11/25/17 12:00 Nasal Cannula 3.0 11/25/17 12:00 3.0 11/25/17 11:44 76 11/25/17 11:00 75 22 120/69 (86) 96 11/25/17 10:44 Nasal Cannula 2.0 28 11/25/17 10:44 95 Nasal Cannula 2.0 28 11/25/17 09:10 64 11/25/17 08:31 81 20 93/57 (69) 100 11/25/17 08:00 20 86/55 (65) 100 11/25/17 08:00 Nasal Cannula 3.0 11/25/17 08:00 3.0 11/25/17 07:59 95.7 72 20 81/50 (60) 100 95.7 11/25/17 07:00 35 11/25/17 04:59 70 18 100 Facial 35 11/25/17 04:00 Bi-pap 11/25/17 04:00 78 11/25/17 04:00 35 11/25/17 04:00 96.3 79 22 100/54 (69) 98 96.3 11/25/17 03:30 78 20 100 Facial 35 11/25/17 01:30 72 20 100 Facial 35 11/25/17 00:00 Bi-pap 11/25/17 00:00 96.3 62 24 92/53 (66) 100 96.3 11/25/17 00:00 62 11/24/17 23:25 66 18 97 Facial 35 11/24/17 21:20 97 20 98 Facial 35 11/24/17 20:00 35 11/24/17 20:00 96.4 97 20 104/43 (63) 96 96.4 11/24/17 20:00 97 11/24/17 20:00 Bi-pap 11/24/17 19:28 95 Bi-pap 35 11/24/17 19:28 Bi-pap 35 11/24/17 19:20 68 26 94 Facial 35 11/24/17 16:00 96.4 84 20 105/47 (66) 95 96.4 11/24/17 16:00 35 11/24/17 16:00 Bi-pap 11/24/17 16:00 81 Intake and Output 11/24/17 11/25/17 19:00 07:00 Intake Total 1650 ml 950 ml Output Total 1350 ml 1550 ml Balance 300 ml -600 ml Free Water 150 ml 50 ml IV Total 1150 ml 900 ml Tube Feeding 350 ml Output Urine Total 1350 ml 1550 ml # Bowel Movements 1 1 Laboratory Tests Test 11/24/17 14:45 11/25/17 04:51 Arterial Blood pH 7.372 (7.350-7.450) Arterial Blood Partial Pressure CO2 46.1 mmHg (35.0-45.0) H Arterial Blood Partial Pressure O2 113.5 mmHg (75.0-100.0) H Arterial Blood HCO3 26.2 mmol/L (22.0-26.0) H Arterial Blood Oxygen Saturation 97.4 % (92.0-98.0) Arterial Blood Base Excess 0.7 Yonathan Test Positive White Blood Count 8.1 K/UL (4.8-10.8) Red Blood Count 2.96 M/UL (4.20-5.40) L Hemoglobin 8.5 G/DL (12.0-16.0) L Hematocrit 26.7 % (37.0-47.0) L Mean Corpuscular Volume 90 FL (80-99) Mean Corpuscular Hemoglobin 28.8 PG (27.0-31.0) Mean Corpuscular Hemoglobin Concent 31.9 G/DL (32.0-36.0) L Red Cell Distribution Width 15.3 % (11.6-14.8) H Platelet Count 159 K/UL (150-450) Mean Platelet Volume 7.1 FL (6.5-10.1) Neutrophils (%) (Auto) 74.3 % (45.0-75.0) Lymphocytes (%) (Auto) 19.3 % (20.0-45.0) L Monocytes (%) (Auto) 3.7 % (1.0-10.0) Eosinophils (%) (Auto) 2.0 % (0.0-3.0) Basophils (%) (Auto) 0.7 % (0.0-2.0) Sodium Level 153 MMOL/L (136-145) H Potassium Level 4.1 MMOL/L (3.5-5.1) Chloride Level 118 MMOL/L (98-107) H Carbon Dioxide Level 27 MMOL/L (21-32) Anion Gap 8 mmol/L (5-15) Blood Urea Nitrogen 30 mg/dL (7-18) H Creatinine 2.0 MG/DL (0.55-1.30) H Estimat Glomerular Filtration Rate 26.0 mL/min (>60) Glucose Level 88 MG/DL (74-106) Calcium Level 8.7 MG/DL (8.5-10.1) Height (Feet): 5 Height (Inches): 2.00 Weight (Pounds): 128 General Appearance: lethargic Cardiovascular: normal rate Respiratory/Chest: other - NC Abdominal Exam: other - Olivia Dias NP Nov 25, 2017 14:08
[2017-11-25] MEDS: Fluconazole 100mg tab ORAL SCH (14:39)
--- NOTE | 2017-11-25 16:15 | Infectious Diseases Prog Note ---
Assessment/Plan Problems: (1) Catheter-associated urinary tract infection Assessment & Plan: with nahed spp , recommend to change suprapubic catheter since it is colonized with yeast, will continue fluconazole for 14 days (2) Altered mental state Assessment & Plan: back to the baseline , neurology is following, head CT no acute pathology (3) Acute pyelonephritis Assessment & Plan: with MDR Providencia stuartii, and MRSA , suspect due to right ureter stent obstruction, S/P vancomycin to cover for MRSA , and ertapenem for MDR Providencia stuartii for two weeks total , urology eval is in progress , may need stent removal . (4) Hydronephrosis of right kidney Assessment & Plan: suspect ureter stent malfunction , urology eval is in progress, may need stent removal (5) Severe sepsis Assessment & Plan: with staph simulans , most likely contamination , grew from one set only. S/P vancomycin for two weeks for MRSA pyelonephritis, repeated blood culture is negative (6) Renal failure Assessment & Plan: continue aggressive hydration , monitor renal function, avoid nephrotoxics (7) Colonization with VRE (vancomycin-resistant enterococcus) Assessment & Plan: keep in contact isolation (8) Hypotension Assessment & Plan: doubt due to sepsis , suspect dehydration . cortisol level looks ok . repeated blood culture is negative (9) Diarrhea Assessment & Plan: not due to C diff with negative toxin , continue aggressive hydration Subjective ROS Limited/Unobtainable: Yes Allergies: Coded Allergies: CEFEPIME (Unverified Allergy, Unknown, 11/09/17) Subjective she was lying in bed, altered , not responsive to calling her name , nonverbal , off BIPAP machine , a febrile Objective Vital Signs Last 24 Hour Vital Signs Date Time Temp Pulse Resp B/P (MAP) Pulse Ox O2 Delivery O2 Flow Rate FiO2 11/25/17 12:25 96.0 76 20 115/68 (84) 92 96.0 11/25/17 12:00 Nasal Cannula 3.0 11/25/17 12:00 3.0 11/25/17 11:44 76 11/25/17 11:00 75 22 120/69 (86) 96 11/25/17 10:44 Nasal Cannula 2.0 28 11/25/17 10:44 95 Nasal Cannula 2.0 28 11/25/17 09:10 64 11/25/17 08:31 81 20 93/57 (69) 100 11/25/17 08:00 20 86/55 (65) 100 11/25/17 08:00 Nasal Cannula 3.0 11/25/17 08:00 3.0 11/25/17 07:59 95.7 72 20 81/50 (60) 100 95.7 11/25/17 07:00 35 11/25/17 04:59 70 18 100 Facial 35 11/25/17 04:00 Bi-pap 11/25/17 04:00 78 11/25/17 04:00 35 11/25/17 04:00 96.3 79 22 100/54 (69) 98 96.3 11/25/17 03:30 78 20 100 Facial 35 11/25/17 01:30 72 20 100 Facial 35 11/25/17 00:00 Bi-pap 11/25/17 00:00 96.3 62 24 92/53 (66) 100 96.3 11/25/17 00:00 62 11/24/17 23:25 66 18 97 Facial 35 11/24/17 21:20 97 20 98 Facial 35 11/24/17 20:00 35 11/24/17 20:00 96.4 97 20 104/43 (63) 96 96.4 11/24/17 20:00 97 11/24/17 20:00 Bi-pap 11/24/17 19:28 95 Bi-pap 35 11/24/17 19:28 Bi-pap 35 11/24/17 19:20 68 26 94 Facial 35 Height (Feet): 5 Height (Inches): 2.00 Weight (Pounds): 128 General Appearance: WD/WN, no acute distress HEENT: normocephalic, atraumatic, anicteric, mucous membranes moist Respiratory/Chest: chest wall non-tender, no respiratory distress, no accessory muscle use, decreased breath sounds, crackles/rales Cardiovascular: normal peripheral pulses, normal rate, regular rhythm, no gallop/murmur, no JVD Abdomen: soft, non tender, no organomegaly, no mass, no scars, hypoactive bowel sounds, distended Extremities: no cyanosis, no clubbing Skin: no rash, no lesions, ulcers Neurologic/Psychiatric: unresponsiveness Lymphatic: no neck adenopathy, no groin adenopathy Musculoskeletal: no effusion Laboratory Tests Test 11/25/17 04:51 White Blood Count 8.1 K/UL (4.8-10.8) Red Blood Count 2.96 M/UL (4.20-5.40) L Hemoglobin 8.5 G/DL (12.0-16.0) L Hematocrit 26.7 % (37.0-47.0) L Mean Corpuscular Volume 90 FL (80-99) Mean Corpuscular Hemoglobin 28.8 PG (27.0-31.0) Mean Corpuscular Hemoglobin Concent 31.9 G/DL (32.0-36.0) L Red Cell Distribution Width 15.3 % (11.6-14.8) H Platelet Count 159 K/UL (150-450) Mean Platelet Volume 7.1 FL (6.5-10.1) Neutrophils (%) (Auto) 74.3 % (45.0-75.0) Lymphocytes (%) (Auto) 19.3 % (20.0-45.0) L Monocytes (%) (Auto) 3.7 % (1.0-10.0) Eosinophils (%) (Auto) 2.0 % (0.0-3.0) Basophils (%) (Auto) 0.7 % (0.0-2.0) Sodium Level 153 MMOL/L (136-145) H Potassium Level 4.1 MMOL/L (3.5-5.1) Chloride Level 118 MMOL/L (98-107) H Carbon Dioxide Level 27 MMOL/L (21-32) Anion Gap 8 mmol/L (5-15) Blood Urea Nitrogen 30 mg/dL (7-18) H Creatinine 2.0 MG/DL (0.55-1.30) H Estimat Glomerular Filtration Rate 26.0 mL/min (>60) Glucose Level 88 MG/DL (74-106) Calcium Level 8.7 MG/DL (8.5-10.1) Current Medications Medications (Trade) Dose Ordered Sig/Tay Route PRN Reason Start Time Stop Time Status Last Admin Dose Admin Acetaminophen (Tylenol) 650 mg Q6H PRN ORAL Mild Pain/Temp > 101 11/09/17 21:30 12/09/17 21:29 Albumin Human 500 ml @ 0 mls/hr Q0M IV 11/21/17 15:00 12/21/17 14:59 Dextrose 1,000 ml @ 100 mls/hr Q10H IV 11/22/17 09:10 12/22/17 09:09 11/25/17 06:46 Fluconazole (Diflucan) 200 mg DAILY ORAL 11/25/17 14:00 12/05/17 13:59 11/25/17 14:39 Folic Acid (Folate) 2 mg DAILY NG 11/22/17 09:00 12/20/17 20:59 11/25/17 08:23 Heparin Sodium (Porcine) (Heparin 5000 units/ml) 5,000 units EVERY 12 HOURS SUBQ 11/10/17 09:00 12/10/17 08:59 11/25/17 08:25 Lansoprazole (Prevacid) 30 mg DAILY NG 11/22/17 09:00 12/22/17 08:59 11/25/17 08:23 Levetiracetam 100 ml @ 400 mls/hr Q12HR IVPB 11/22/17 21:00 12/22/17 20:59 11/25/17 08:30 Midodrine (Pro-Amatine) 10 mg THREE TIMES A DAY ORAL 11/20/17 18:00 12/20/17 17:59 11/25/17 13:17 Ondansetron HCl (Zofran) 4 mg Q4H PRN IVP Nausea & Vomiting 11/09/17 21:30 12/09/17 21:29 Sennosides (Senokot) 1 tab DAILY PRN ORAL Constipation 11/09/17 21:30 12/09/17 21:29 Kortney Quiñones M.D. Nov 25, 2017 16:15
[2017-11-25] MEDS ORDERED: Tubing IV Secondary IV ONE (16:29)
[2017-11-25] MEDS ORDERED: NS 275ml ONE (16:29)
--- NOTE | 2017-11-25 17:56 | Pulmonology Progress Note ---
Assessment/Plan Assessment/Plan ASSESSMENT: The patient is a 52-year-old [facility] resident with history of dementia, traumatic brain injury, recurrent staghorn calculi, recurrent urinary tract infection, suprapubic catheter, prior trach, seizure disorder, nonverbal at baseline, presenting initially for desaturation, but now is stable respiratory dynamics, but concerned for sepsis and profound dehydration with acute kidney injury, anion gap, metabolic acidosis, lactic acidosis, and hemoconcentration all likely secondary to a source. PROBLEM LIST: 1. SIRS/sepsis. 2. Shock, likely septic. 3. Profound dehydration. 4. Hypernatremia, with an initial sodium of 177. 5. Anion gap metabolic acidosis, lactic acidosis. 6. Acute kidney injury, likely on chronic kidney disease. 7. Hypercalcemia. 8. Urinary tract infection. 9. History of traumatic brain injury, dementia, and seizure disorder. 10. History of prior tracheostomy, status post takedown. 11. History of staghorn renal calculi with multiple UTIs, status post suprapubic catheter placement. 12. [facility] resident. 13. Nonverbal at baseline. 14. Bed-bound. 15. Full Code. TREATMENT PLAN: 1. IVF per renal, continue midodrine, replete free water 2. S/P NGT, ongoing discussion RE: PEG, will need 2 physician consent per ETHICS 3. PRN O2, PRN HHN's 4. Completed Abx, continue Flucon per ID 5. F/U recs 6. Monitor MS, F/U neuro recs 7. Heparin subcutaneous for DVT prophylaxis. 8. The patient is a Full Code, POLST reviewed by myself, we continue to discuss goals of care further ---> MULTIPLE MESSAGES LEFT FOR SON LUCÍA, NO CALL BACK , BIOETHICS EVAL NOTED, PALLIATIVE CARE CONSULT APPRECIATED, FAMILY MEETING SHOULD BE ARRANGED Subjective Allergies: Coded Allergies: CEFEPIME (Unverified Allergy, Unknown, 11/09/17) Subjective Non-verbal, off BiPAP, O2 needs stable, + secretions, weak cough, marcus NGTF's Dr Trevor correa appreciated, ethics eval noted Objective Last 24 Hour Vital Signs Date Time Temp Pulse Resp B/P (MAP) Pulse Ox O2 Delivery O2 Flow Rate FiO2 11/25/17 15:54 68 11/25/17 12:25 96.0 76 20 115/68 (84) 92 96.0 11/25/17 12:00 Nasal Cannula 3.0 11/25/17 12:00 3.0 11/25/17 11:44 76 11/25/17 11:00 75 22 120/69 (86) 96 11/25/17 10:44 Nasal Cannula 2.0 28 11/25/17 10:44 95 Nasal Cannula 2.0 28 11/25/17 09:10 64 11/25/17 08:31 81 20 93/57 (69) 100 11/25/17 08:00 20 86/55 (65) 100 11/25/17 08:00 Nasal Cannula 3.0 11/25/17 08:00 3.0 11/25/17 07:59 95.7 72 20 81/50 (60) 100 95.7 11/25/17 07:00 35 11/25/17 04:59 70 18 100 Facial 35 11/25/17 04:00 Bi-pap 11/25/17 04:00 78 11/25/17 04:00 35 11/25/17 04:00 96.3 79 22 100/54 (69) 98 96.3 11/25/17 03:30 78 20 100 Facial 35 11/25/17 01:30 72 20 100 Facial 35 11/25/17 00:00 Bi-pap 11/25/17 00:00 96.3 62 24 92/53 (66) 100 96.3 11/25/17 00:00 62 11/24/17 23:25 66 18 97 Facial 35 11/24/17 21:20 97 20 98 Facial 35 11/24/17 20:00 35 11/24/17 20:00 96.4 97 20 104/43 (63) 96 96.4 11/24/17 20:00 97 11/24/17 20:00 Bi-pap 11/24/17 19:28 95 Bi-pap 35 11/24/17 19:28 Bi-pap 35 11/24/17 19:20 68 26 94 Facial 35 Intake and Output 11/24/17 11/25/17 19:00 07:00 Intake Total 1650 ml 950 ml Output Total 1350 ml 1550 ml Balance 300 ml -600 ml Free Water 150 ml 50 ml IV Total 1150 ml 900 ml Tube Feeding 350 ml Output Urine Total 1350 ml 1550 ml # Bowel Movements 1 1 General Appearance: other - nonverbal HEENT: normocephalic, atraumatic, anicteric, mucous membranes moist Respiratory/Chest: chest wall non-tender, rhonchi Cardiovascular: normal peripheral pulses, normal rate, regular rhythm Abdomen: normal bowel sounds, soft, non tender, no organomegaly, non distended , no mass, other - SPC Extremities: no cyanosis, no clubbing, no edema, other - contracted Laboratory Tests 11/25/17 04:51: White Blood Count 8.1, Red Blood Count 2.96L, Hemoglobin 8.5L, Hematocrit 26.7L , Mean Corpuscular Volume 90, Mean Corpuscular Hemoglobin 28.8, Mean Corpuscular Hemoglobin Concent 31.9L, Red Cell Distribution Width 15.3H, Platelet Count 159, Mean Platelet Volume 7.1, Neutrophils (%) (Auto) 74.3, Lymphocytes (%) (Auto) 19.3L, Monocytes (%) (Auto) 3.7, Eosinophils (%) (Auto) 2.0, Basophils (%) (Auto) 0.7, Sodium Level 153H, Potassium Level 4.1, Chloride Level 118H, Carbon Dioxide Level 27, Anion Gap 8, Blood Urea Nitrogen 30H, Creatinine 2.0H, Estimat Glomerular Filtration Rate 26.0, Glucose Level 88, Calcium Level 8.7 Current Medications Medications (Trade) Dose Ordered Sig/Tay Route PRN Reason Start Time Stop Time Status Last Admin Dose Admin Acetaminophen (Tylenol) 650 mg Q6H PRN ORAL Mild Pain/Temp > 101 11/09/17 21:30 12/09/17 21:29 Albumin Human 500 ml @ 0 mls/hr Q0M IV 11/21/17 15:00 12/21/17 14:59 Dextrose 1,000 ml @ 100 mls/hr Q10H IV 11/22/17 09:10 12/22/17 09:09 11/25/17 06:46 Fluconazole (Diflucan) 200 mg DAILY ORAL 11/25/17 14:00 12/05/17 13:59 11/25/17 14:39 Folic Acid (Folate) 2 mg DAILY NG 11/22/17 09:00 12/20/17 20:59 11/25/17 08:23 Heparin Sodium (Porcine) (Heparin 5000 units/ml) 5,000 units EVERY 12 HOURS SUBQ 11/10/17 09:00 12/10/17 08:59 11/25/17 08:25 Lansoprazole (Prevacid) 30 mg DAILY NG 11/22/17 09:00 12/22/17 08:59 11/25/17 08:23 Levetiracetam 100 ml @ 400 mls/hr Q12HR IVPB 11/22/17 21:00 12/22/17 20:59 11/25/17 08:30 Midodrine (Pro-Amatine) 10 mg THREE TIMES A DAY ORAL 11/20/17 18:00 12/20/17 17:59 11/25/17 13:17 Ondansetron HCl (Zofran) 4 mg Q4H PRN IVP Nausea & Vomiting 11/09/17 21:30 12/09/17 21:29 Sennosides (Senokot) 1 tab DAILY PRN ORAL Constipation 11/09/17 21:30 12/09/17 21:29 Jose Montalvo MD Nov 25, 2017 17:56
--- NOTE | 2017-11-25 19:56 | Neurology Progress Note ---
Interim History Interim History Interim History Ms. Guaman can be aroused with vocal stimulation. She is mumbling but cannot be understood. She she is awake but not alert. She is cognitively impoverished. She is motorically challenged. There has been no change in her neurologic state. She has exhibited no clinical seizures. The EEG done on 11/24/17 revealed a continuous electrographic seizure during her entire EEG. Review of Systems Neuro Review of Systems Unable to obtain. Objective Physical Exam Last Vital Signs Date Time Temp Pulse Resp B/P (MAP) Pulse Ox O2 Delivery O2 Flow Rate FiO2 11/25/17 16:00 97.5 78 18 98/56 (70) 100 97.5 11/25/17 16:00 Nasal Cannula 3.0 11/25/17 10:44 28 Laboratory Tests Test 11/25/17 04:51 White Blood Count 8.1 K/UL (4.8-10.8) Red Blood Count 2.96 M/UL (4.20-5.40) L Hemoglobin 8.5 G/DL (12.0-16.0) L Hematocrit 26.7 % (37.0-47.0) L Mean Corpuscular Volume 90 FL (80-99) Mean Corpuscular Hemoglobin 28.8 PG (27.0-31.0) Mean Corpuscular Hemoglobin Concent 31.9 G/DL (32.0-36.0) L Red Cell Distribution Width 15.3 % (11.6-14.8) H Platelet Count 159 K/UL (150-450) Mean Platelet Volume 7.1 FL (6.5-10.1) Neutrophils (%) (Auto) 74.3 % (45.0-75.0) Lymphocytes (%) (Auto) 19.3 % (20.0-45.0) L Monocytes (%) (Auto) 3.7 % (1.0-10.0) Eosinophils (%) (Auto) 2.0 % (0.0-3.0) Basophils (%) (Auto) 0.7 % (0.0-2.0) Sodium Level 153 MMOL/L (136-145) H Potassium Level 4.1 MMOL/L (3.5-5.1) Chloride Level 118 MMOL/L (98-107) H Carbon Dioxide Level 27 MMOL/L (21-32) Anion Gap 8 mmol/L (5-15) Blood Urea Nitrogen 30 mg/dL (7-18) H Creatinine 2.0 MG/DL (0.55-1.30) H Estimat Glomerular Filtration Rate 26.0 mL/min (>60) Glucose Level 88 MG/DL (74-106) Calcium Level 8.7 MG/DL (8.5-10.1) Neurologic Exam Objective PHYSICAL EXAMINATION: GENERAL: She is a well-developed and well-nourished lady, lying in bed , in no acute distress. HEAD: Normocephalic with right craniectomy defect. EENT: Examination benign. NECK: No neck rigidity was observed. NEUROLOGICAL EXAMINATION: MENTAL STATUS EXAMINATION: She awake but not alert. She was mumbling. Further mental status testing was impossible. SPEECH: She was mumbling. LANGUAGE: Could not be tested. CRANIAL NERVE EXAMINATION: II: She did blink to threat. III, IV & : The eyes were dysconjugate. External ocular movements were present on oculocephalic maneuvers. The pupils were 3 mm in diameter, equal, round, regular, and reactive sluggishly to light. V & VII: Corneal reflexes were present, but brisker on the right than on the left. VIII: She did respond to sounds and had no nystagmus. IX & X: The gag reflex was absent. IX: Sternocleidomastoids and trapezii did function minimally on applying deep painful stimuli. XII: Tongue in the midline. MOTOR SYSTEM: The tone was increased in both lower extremities with spasticity. The tone was relatively normal in the right upper extremity but was diminished in the left upper extremity. Examination of muscle mass revealed wasting of the left upper and lower extremities and in addition a flexion contracture at the elbow. The examination of power was impossible to perform accurately as she did not move her left side at all and moved her right side minimally in a nonpurposeful manner. SENSORY EXAMINATION: She responded to deep pain on the right side but not the left. REFLEXES: 2+ on the left and 2++ on the right at the biceps, triceps, brachioradialis, and knees, 0 at both ankles. The plantar responses were extensor bilaterally. COORDINATION, STANCE & GAIT: Could not be tested. Impression/Recommendations Diagnostic Impression 1. Ms. Yumiko Guaman is a 52-year-old, lady, of unknown handedness, who does have a past history of severe brain trauma with a right-sided craniectomy and significant right brain encephalomalacia. She also has a history of a seizure disorder that is undefined. She has a left plegia and prior episodes of respiratory failure, urinary tract infections, and multiple episodes of sepsis. She was hospitalized on 11/09/2017 for a urinary tract infection associated with sepsis but her mental state improved with treatment of those conditions. on 11/20/17 there was a sudden decline in her level of arousal. 2. She can be aroused with vocal stimulation. She is mumbling but cannot be understood. She she is awake but not alert. She is cognitively impoverished. She is motorically challenged. There has been no change in her neurologic state. She has exhibited no clinical seizures. 3. On neurological examination at this time, she does demonstrate a right-sided craniectomy. She is awake but not alert. She is mumbling when asked questions. Further mental status testing is impossible. Language cannot be tested. She does blink to visual threat. The corneal reflexes are diminished on the left side compared to the right. She has left upper extremity greater than lower extremity contractures and left-sided plegia and significant right-sided hemiparesis. She only responds to deep pain on the right side with minimal withdrawal but not on the left side. The deep tendon reflexes are brisker on the right side compared to the left and she has extensor plantar responses bilaterally. 4. CT scan of the brain without contrast performed on 11/20/2017 revealed a large right convexity craniectomy and extensive underlying temporal and parietal encephalomalacia. There was also encephalomalacia of the right cerebellum. There was a left frontal craniotomy defect with overlying mesh. There was no significant underlying parenchymal abnormality on the left side. She also had right-sided ventriculostomy. No acute pathology was noted. 5. Laboratory data revealed that she was anemic with a hemoglobin of 10.5 G. Her WBC count was 10,000 but she had a left-sided shift with 80% polymorphonuclear leukocytes. The chemistry panel revealed a creatinine elevated to 2.0. The ammonia was minimally elevated at 34. The Vitamin B12 level and TSH were normal. The Folate was minimally low at 3.9. The Urinalysis that was done on 11/09/2017 revealed 3+ leukocyte esterase, 40-60 RBCs and 40-60 WBCs per high-power field. Her latest arterial blood gas revealed a pH of 7.35, pCO2 of 42, and pO2 of 60. 6. The EEG done on 11/21/17 revealed severe generalized cerebral dysfunction and multiple electrographic seizures emanating from the right fronto-central region sometimes lasting al long as 120 seconds. 7. The EEG done on 11/24/17 revealed a continuous electrographic seizure emanating from the right fronto-central area during her entire EEG and severe generalized cerebral dysfunction. 8. The patient's history, neurological examination, and laboratory data and imaging studies are most compatible with worsening of a toxic metabolic encephalopathy and in addition subclinical electrographic seizures emanating from the right fronto-central region. Recommendations 1. Continue present management. 2. Continue present therapeutic management. 3. Continue aggressive antibiotic treatment. 4. Continue to correct the patient's toxic metabolic imbalances. 5. Increase Keppra to 1500 mg IV q 12 hours. 6. Observe closely. Roseann Ramos M.D., M.S.P.ROSEANN CHRISTIAN Nov 25, 2017 19:56
[2017-11-25] MEDS: levETIRAcetam 1,500 MG in D5W 95 ML IV SCH (21:02)
--- NOTE | 2017-11-25 23:00 | Electroencephalogram ---
DATE OF PROCEDURE: 11/24/2017 REQUESTING PHYSICIAN: Jose Montalvo M.D. READING PHYSICIAN: Surya Ramos M.D. PROCEDURE PERFORMED: Electroencephalogram. HISTORY: This EEG was performed on a 52-year-old lady with a history of severe head trauma with a right-sided craniectomy. She has recently been exhibiting an alteration in her mental state. A prior EEG showed electrographic seizures. The purpose of this EEG was to evaluate the patient for ongoing ictal or interictal phenomena after her dose of anticonvulsant was increased. TECHNICAL NOTE: This EEG was performed on a [employer] with electrodes placed on the scalp according to the International 10-20 system. [id number] and [id number] montages were used. The EEG was technically satisfactory and was performed while the patient was in a poorly responsive state. OBSERVATIONS: In the poorly responsive state, the background activity consisted of 6-7 Hz theta with intermixed delta frequencies. Throughout the tracing, an electrographic seizure in the form of rhythmic spike discharges, emanating from the C4-T4 electrodes was seen. IMPRESSION: This is an abnormal EEG characterized by: 1. Slowing of the background in the theta and delta range. 2. The presence of an electrographic seizure emanating from the C4-T4 electrodes seen throughout the tracing. COMMENT: The study is consistent with: 1. Generalized cerebral dysfunction of a moderate degree. 2. An electrographic seizure emanating from the right centrotemporal region. Surya Ramos M.D., M.S.P.H. DR: BURT JOB#: [id number] MTDD
[2017-11-26] VITALS: BP 101/69
[2017-11-26 04:00] VITALS: BP 105/68
[2017-11-26 06:47] LABS: HEMATOCRIT 23.9 % (37.0-47.0); HEMOGLOBIN 7.5 G/DL (12.0-16.0); MEAN CORPUSCULAR VOLUME 90 FL (80-99); PLATELET COUNT 145 K/UL (150-450); RED BLOOD COUNT 2.65 M/UL (4.20-5.40); RED CELL DISTRIBUTION WIDTH 15.6 % (11.6-14.8); WHITE BLOOD COUNT 6.6 K/UL (4.8-10.8)
[2017-11-26 07:09] LABS: ANION GAP 5 mmol/L (5-15); BLOOD UREA NITROGEN 30 mg/dL (7-18); CALCIUM 8.9 MG/DL (8.5-10.1); CARBON DIOXIDE 29 MMOL/L (21-32); CHLORIDE 112 MMOL/L (98-107); POTASSIUM 4.2 MMOL/L (3.5-5.1); SODIUM 146 MMOL/L (136-145)
[2017-11-26 08:00] VITALS: BP_SYST 107; BP_DIAS 7; BP_DIAS 72
[2017-11-26] MEDS: Fluconazole 100mg tab ORAL SCH (08:32)
[2017-11-26] MEDS: Midodrine 10mg tab ORAL SCH ×3 (08:33→18:03)
[2017-11-26] MEDS: levETIRAcetam 1,500 MG in D5W 95 ML IV SCH ×2 (08:36→20:48)
[2017-11-26] MEDS: Heparin 5000 units/ml inj SUBQ SCH ×2 (09:00→20:49)
--- NOTE | 2017-11-26 09:00 | Urology Progress Note ---
Assessment/Plan Assessment/Plan 1. History of hydronephrosis that is chronic. 2. Renal insufficiency, acute on chronic, labile. 3. Hematuria. 4. Pyuria/UTI/colonized. 5. Proteinuria. 6. Urinary retention with chronic suprapubic tube. 7. Neurogenic bladder. sp tube indwelling, last exchanged 11/18 hand irrigated, patent abx as ordered, diflucan monitor renal fxn need old recs indwelling ureteral stents can be addressed by pt's outside urologist once medically more stable Subjective Allergies: Coded Allergies: CEFEPIME (Unverified Allergy, Unknown, 11/09/17) Subjective all noted Objective Last 24 Hour Vital Signs Date Time Temp Pulse Resp B/P (MAP) Pulse Ox O2 Delivery O2 Flow Rate FiO2 11/26/17 08:00 Nasal Cannula 3.0 11/26/17 08:00 96.0 72 16 107/7 (40) 99 96.0 11/26/17 07:00 Nasal Cannula 2.0 28 11/26/17 07:00 100 Nasal Cannula 2.0 28 11/26/17 05:20 69 18 100 11/26/17 04:00 97.8 74 16 105/68 (80) 100 97.8 11/26/17 04:00 Nasal Cannula 3.0 11/26/17 04:00 35 11/26/17 04:00 54 11/26/17 03:17 55 18 100 Facial 35 11/26/17 01:15 61 18 100 Facial 35 11/26/17 00:00 Nasal Cannula 3.0 11/26/17 00:00 80 11/26/17 00:00 35 11/26/17 00:00 97.9 81 18 101/69 (80) 100 97.9 11/25/17 23:00 61 18 100 Facial 35 11/25/17 22:15 Full Face 11/25/17 22:00 66 18 100 Facial 35 11/25/17 22:00 35 11/25/17 20:00 Nasal Cannula 3.0 11/25/17 20:00 97.8 75 16 96/67 (77) 100 97.8 11/25/17 20:00 64 11/25/17 20:00 3.0 11/25/17 18:35 100 Nasal Cannula 2.0 28 11/25/17 18:35 Nasal Cannula 2.0 28 11/25/17 16:00 97.5 78 18 98/56 (70) 100 97.5 11/25/17 16:00 Nasal Cannula 3.0 11/25/17 15:54 68 11/25/17 12:25 96.0 76 20 115/68 (84) 92 96.0 11/25/17 12:00 Nasal Cannula 3.0 11/25/17 12:00 3.0 11/25/17 11:44 76 11/25/17 11:00 75 22 120/69 (86) 96 11/25/17 10:44 Nasal Cannula 2.0 28 11/25/17 10:44 95 Nasal Cannula 2.0 28 11/25/17 09:10 64 Intake and Output 11/25/17 11/26/17 19:00 07:00 Intake Total 2250 ml 1938 ml Output Total 1300 ml 1300 ml Balance 950 ml 638 ml Free Water 200 ml 50 ml IV Total 1500 ml 1638 ml Tube Feeding 550 ml 250 ml Output Urine Total 1300 ml 1300 ml # Bowel Movements 1 1 Microbiology Date/Time Source Procedure Growth Status 11/13/17 15:10 Blood Blood Culture - Final NO GROWTH AFTER 5 DAYS Complete 11/09/17 20:25 Nasal Nares MRSA Culture - Final Staphylococcus Aureus - Mrsa Complete 11/21/17 14:30 Stool Clostridium difficile Toxin Assay - Final Complete 11/20/17 19:14 Urine,Clean Catch Urine Culture - Final Amy Albicans Complete 11/10/17 20:25 Rectum - Final NO CARBAPENEM-RESISTANT ENTEROBACTERI... Complete Current Medications Medications (Trade) Dose Ordered Sig/Tay Route PRN Reason Start Time Stop Time Status Last Admin Dose Admin Acetaminophen (Tylenol) 650 mg Q6H PRN ORAL Mild Pain/Temp > 101 11/09/17 21:30 12/09/17 21:29 Albumin Human 500 ml @ 0 mls/hr Q0M IV 11/21/17 15:00 12/21/17 14:59 Dextrose 1,000 ml @ 100 mls/hr Q10H IV 11/22/17 09:10 12/22/17 09:09 11/26/17 02:02 Fluconazole (Diflucan) 200 mg DAILY ORAL 11/25/17 14:00 12/05/17 13:59 11/26/17 08:32 Folic Acid (Folate) 2 mg DAILY NG 11/22/17 09:00 12/20/17 20:59 11/26/17 08:32 Heparin Sodium (Porcine) (Heparin 5000 units/ml) 5,000 units EVERY 12 HOURS SUBQ 11/10/17 09:00 12/10/17 08:59 11/25/17 08:25 Lansoprazole (Prevacid) 30 mg DAILY NG 11/22/17 09:00 12/22/17 08:59 11/26/17 08:32 Levetiracetam 1500 mg/Dextrose 110 ml @ 440 mls/hr Q12HR IV 11/25/17 21:00 12/25/17 20:59 11/26/17 08:36 Midodrine (Pro-Amatine) 10 mg THREE TIMES A DAY ORAL 11/20/17 18:00 12/20/17 17:59 11/26/17 08:33 Ondansetron HCl (Zofran) 4 mg Q4H PRN IVP Nausea & Vomiting 11/09/17 21:30 12/09/17 21:29 Sennosides (Senokot) 1 tab DAILY PRN ORAL Constipation 11/09/17 21:30 12/09/17 21:29 Laboratory Tests 11/26/17 05:42: White Blood Count 6.6, Red Blood Count 2.65L, Hemoglobin 7.5L, Hematocrit 23.9L , Mean Corpuscular Volume 90, Mean Corpuscular Hemoglobin 28.2, Mean Corpuscular Hemoglobin Concent 31.3L, Red Cell Distribution Width 15.6H, Platelet Count 145L, Mean Platelet Volume 7.2, Neutrophils (%) (Auto) , Lymphocytes (%) (Auto) , Monocytes (%) (Auto) , Eosinophils (%) (Auto) , Basophils (%) (Auto) , Neutrophils % (Manual) [Pending], Lymphocytes % (Manual) [Pending], Platelet Estimate [Pending], Platelet Morphology [Pending], Sodium Level 146H, Potassium Level 4.2, Chloride Level 112H, Carbon Dioxide Level 29, Anion Gap 5, Blood Urea Nitrogen 30H, Creatinine 2.0H, Estimat Glomerular Filtration Rate 26.0, Glucose Level 104, Calcium Level 8.9 Height (Feet): 5 Height (Inches): 2.00 Weight (Pounds): 132 Objective exam stable WILBER GALINDO Nov 26, 2017 09:00
--- NOTE | 2017-11-26 09:31 | Anethesia Preoperative Eval ---
Anesthesia Pre-op PMH/ROS General Date of Evaluation: Nov 26, 2017 Time of Evaluation: 09:30 Anesthesiologist: israel ASA Score: ASA 4 Mallampati Score Class I : Soft palate, uvula, fauces, pillars visible Class II: Soft palate, uvula, fauces visible Class III: Soft palate, base of uvula visible Class IV: Only hard plate visible Mallampati Classification: Class II Surgeon: neno Diagnosis: dysphagia Surgical Procedure: egd/peg Anesthesia History: none Social History: smoking Family History: no anesthesia problems Allergies: Coded Allergies: CEFEPIME (Unverified Allergy, Unknown, 11/09/17) Medications: see eMAR Past Medical History Cardiovascular: Reports: HTN, other - chf, Pulmonary: Reports: other - bipap, acute respiratory failure, dyspnea Gastrointestinal/Genitourinary: Reports: GERD, other - dysphagia, renal disease , kidney stone, recurrent uti, Neurologic/Psychiatric: Reports: depression/anxiety, other - siezure disorder, hydrocephaly,craniotomy, traumatic brain injury, left hemiplegia Hematology/Immune: Reports: anemia Anesthesia Pre-op Phys. Exam Physician Exam Last Vital Signs Date Time Temp Pulse Resp B/P (MAP) Pulse Ox O2 Delivery O2 Flow Rate FiO2 11/26/17 08:00 Nasal Cannula 3.0 11/26/17 08:00 96.0 72 16 107/7 (40) 99 96.0 11/26/17 07:00 28 Constitutional: NAD Neurologic: other - traumatic brain injury Cardiovascular: RRR Respiratory: CTA Gastrointestinal: S/NT/ND Airway Exam Mallampati Score: Class II MO: full Neck: s/p tracheostomy TMD: 2fb ROM: limited Teeth: missing Anesthesia Pre-op A/P Labs Hematology Test 11/26/17 05:42 White Blood Count 6.6 K/UL (4.8-10.8) Red Blood Count 2.65 M/UL (4.20-5.40) L Hemoglobin 7.5 G/DL (12.0-16.0) L Hematocrit 23.9 % (37.0-47.0) L Mean Corpuscular Volume 90 FL (80-99) Mean Corpuscular Hemoglobin 28.2 PG (27.0-31.0) Mean Corpuscular Hemoglobin Concent 31.3 G/DL (32.0-36.0) L Red Cell Distribution Width 15.6 % (11.6-14.8) H Platelet Count 145 K/UL (150-450) L Mean Platelet Volume 7.2 FL (6.5-10.1) Neutrophils (%) (Auto) % (45.0-75.0) Lymphocytes (%) (Auto) % (20.0-45.0) Monocytes (%) (Auto) % (1.0-10.0) Eosinophils (%) (Auto) % (0.0-3.0) Basophils (%) (Auto) % (0.0-2.0) Neutrophils % (Manual) Pending Lymphocytes % (Manual) Pending Platelet Estimate Pending Platelet Morphology Pending Chemistry Test 11/26/17 05:42 Sodium Level 146 MMOL/L (136-145) H Potassium Level 4.2 MMOL/L (3.5-5.1) Chloride Level 112 MMOL/L (98-107) H Carbon Dioxide Level 29 MMOL/L (21-32) Anion Gap 5 mmol/L (5-15) Blood Urea Nitrogen 30 mg/dL (7-18) H Creatinine 2.0 MG/DL (0.55-1.30) H Estimat Glomerular Filtration Rate 26.0 mL/min (>60) Glucose Level 104 MG/DL (74-106) Calcium Level 8.9 MG/DL (8.5-10.1) Risk Assessment & Plan Assessment: asa4 Plan: mac Status Change Before Surgery: No Pre-Antibiotics Drug: clindamycin Given Within 1 Hr of Incision: Yes - 1321 Time Given: 13:21 Magi Fuentes MD Nov 26, 2017 09:31
[2017-11-26 10:37] LABS: HEMATOCRIT 24.9 % (37.0-47.0); HEMOGLOBIN 7.8 G/DL (12.0-16.0); MEAN CORPUSCULAR VOLUME 90 FL (80-99); PLATELET COUNT 135 K/UL (150-450); RED BLOOD COUNT 2.76 M/UL (4.20-5.40); RED CELL DISTRIBUTION WIDTH 15.5 % (11.6-14.8); WHITE BLOOD COUNT 6.2 K/UL (4.8-10.8)
[2017-11-26 10:51] LABS: INR 0.9 (0.9-1.1)
[2017-11-26] MEDS ORDERED: Clindamycin 600mg 50 ML IV SCH (11:30)
[2017-11-26 12:00] VITALS: BP 115/74
--- NOTE | 2017-11-26 12:33 | Pulmonology Progress Note ---
Assessment/Plan Assessment/Plan ASSESSMENT: The patient is a 52-year-old shelter resident with history of dementia, traumatic brain injury, recurrent staghorn calculi, recurrent urinary tract infection, suprapubic catheter, prior trach, seizure disorder, nonverbal at baseline, presenting initially for desaturation, but now is stable respiratory dynamics, but concerned for sepsis and profound dehydration with acute kidney injury, anion gap, metabolic acidosis, lactic acidosis, and hemoconcentration all likely secondary to a source. PROBLEM LIST: 1. SIRS/sepsis. 2. Shock, likely septic. 3. Profound dehydration. 4. Hypernatremia, with an initial sodium of 177. 5. Anion gap metabolic acidosis, lactic acidosis. 6. Acute kidney injury, likely on chronic kidney disease. 7. Hypercalcemia. 8. Urinary tract infection. 9. History of traumatic brain injury, dementia, and seizure disorder. 10. History of prior tracheostomy, status post takedown. 11. History of staghorn renal calculi with multiple UTIs, status post suprapubic catheter placement. 12. long term resident. 13. Nonverbal at baseline. 14. Bed-bound. 15. Full Code. TREATMENT PLAN: 1. IVF per renal, continue midodrine, replete free water 2. S/P NGT, OCTO PEG, will need 2 physician consent per ETHICS 3. PRN O2, PRN HHN's 4. Clinda per ID 5. F/U recs 6. Monitor MS, F/U neuro recs 7. Heparin subcutaneous for DVT prophylaxis. 8. The patient is a Full Code, POLST reviewed by myself, we continue to discuss goals of care further ---> MULTIPLE MESSAGES LEFT FOR SON LUCÍA, NO CALL BACK , BIOETHICS EVAL NOTED, PALLIATIVE CARE CONSULT APPRECIATED, FAMILY MEETING SHOULD BE ARRANGED Subjective Allergies: Coded Allergies: CEFEPIME (Unverified Allergy, Unknown, 11/09/17) Subjective Non-verbal, off BiPAP, O2 needs stable, no change in secretions, weak cough, marcus NGTF's Hb 7.5, repeat 7.8, OCTO endoscopy and EGD Objective Last 24 Hour Vital Signs Date Time Temp Pulse Resp B/P (MAP) Pulse Ox O2 Delivery O2 Flow Rate FiO2 11/26/17 12:00 Nasal Cannula 3.0 11/26/17 12:00 95.5 71 18 115/74 (88) 94 95.5 11/26/17 10:01 57 11/26/17 08:00 Nasal Cannula 3.0 11/26/17 08:00 96.0 72 16 107/72 (84) 99 96.0 11/26/17 07:00 Nasal Cannula 2.0 28 11/26/17 07:00 100 Nasal Cannula 2.0 28 11/26/17 05:20 69 18 100 11/26/17 04:00 97.8 74 16 105/68 (80) 100 97.8 11/26/17 04:00 Nasal Cannula 3.0 11/26/17 04:00 35 11/26/17 04:00 54 11/26/17 03:17 55 18 100 Facial 35 11/26/17 01:15 61 18 100 Facial 35 11/26/17 00:00 Nasal Cannula 3.0 11/26/17 00:00 80 11/26/17 00:00 35 11/26/17 00:00 97.9 81 18 101/69 (80) 100 97.9 11/25/17 23:00 61 18 100 Facial 35 11/25/17 22:15 Full Face 11/25/17 22:00 66 18 100 Facial 35 11/25/17 22:00 35 11/25/17 20:00 Nasal Cannula 3.0 11/25/17 20:00 97.8 75 16 96/67 (77) 100 97.8 11/25/17 20:00 64 11/25/17 20:00 3.0 11/25/17 18:35 100 Nasal Cannula 2.0 28 11/25/17 18:35 Nasal Cannula 2.0 28 11/25/17 16:00 97.5 78 18 98/56 (70) 100 97.5 11/25/17 16:00 Nasal Cannula 3.0 11/25/17 15:54 68 Intake and Output 11/25/17 11/26/17 19:00 07:00 Intake Total 2250 ml 1938 ml Output Total 1300 ml 1300 ml Balance 950 ml 638 ml Free Water 200 ml 50 ml IV Total 1500 ml 1638 ml Tube Feeding 550 ml 250 ml Output Urine Total 1300 ml 1300 ml # Bowel Movements 1 1 General Appearance: cachetic, other - non-verbal HEENT: normocephalic, atraumatic, anicteric, mucous membranes moist Respiratory/Chest: rhonchi Cardiovascular: normal peripheral pulses, normal rate, regular rhythm Abdomen: normal bowel sounds, soft, non tender, no organomegaly, non distended , other - SPC Extremities: no cyanosis, no clubbing, no edema, other - contracted Laboratory Tests 11/26/17 05:42: White Blood Count 6.6, Red Blood Count 2.65L, Hemoglobin 7.5L, Hematocrit 23.9L , Mean Corpuscular Volume 90, Mean Corpuscular Hemoglobin 28.2, Mean Corpuscular Hemoglobin Concent 31.3L, Red Cell Distribution Width 15.6H, Platelet Count 145L, Mean Platelet Volume 7.2, Neutrophils (%) (Auto) , Lymphocytes (%) (Auto) , Monocytes (%) (Auto) , Eosinophils (%) (Auto) , Basophils (%) (Auto) , Differential Total Cells Counted 100, Neutrophils % ( Manual) 65, Lymphocytes % (Manual) 25, Monocytes % (Manual) 4, Eosinophils % ( Manual) 4H, Basophils % (Manual) 0, Band Neutrophils 2, Platelet Estimate Adequate, Platelet Morphology Normal, Hypochromasia 1+, Anisocytosis 1+, Sodium Level 146H, Potassium Level 4.2, Chloride Level 112H, Carbon Dioxide Level 29, Anion Gap 5, Blood Urea Nitrogen 30H, Creatinine 2.0H, Estimat Glomerular Filtration Rate 26.0, Glucose Level 104, Calcium Level 8.9 11/26/17 09:55: White Blood Count 6.2, Red Blood Count 2.76L, Hemoglobin 7.8L, Hematocrit 24.9L , Mean Corpuscular Volume 90, Mean Corpuscular Hemoglobin 28.3, Mean Corpuscular Hemoglobin Concent 31.3L, Red Cell Distribution Width 15.5H, Platelet Count 135L, Mean Platelet Volume 7.1, Neutrophils (%) (Auto) , Lymphocytes (%) (Auto) , Monocytes (%) (Auto) , Eosinophils (%) (Auto) , Basophils (%) (Auto) , Differential Total Cells Counted 100, Neutrophils % ( Manual) 66, Lymphocytes % (Manual) 29, Monocytes % (Manual) 3, Eosinophils % ( Manual) 2, Basophils % (Manual) 0, Band Neutrophils 0, Platelet Estimate DecreasedL, Platelet Morphology Normal, Hypochromasia 1+, Anisocytosis 1+, Prothrombin Time 10.0, Prothromb Time International Ratio 0.9, Activated Partial Thromboplast Time 38H Current Medications Medications (Trade) Dose Ordered Sig/Tay Route PRN Reason Start Time Stop Time Status Last Admin Dose Admin Acetaminophen (Tylenol) 650 mg Q6H PRN ORAL Mild Pain/Temp > 101 11/09/17 21:30 12/09/17 21:29 Albumin Human 500 ml @ 0 mls/hr Q0M IV 11/21/17 15:00 12/21/17 14:59 Clindamycin HCl/ Dextrose 50 ml @ 100 mls/hr ONCE IV 11/26/17 11:30 11/26/17 13:00 Dextrose 1,000 ml @ 100 mls/hr Q10H IV 11/22/17 09:10 12/22/17 09:09 11/26/17 02:02 Fluconazole (Diflucan) 200 mg DAILY ORAL 11/25/17 14:00 12/05/17 13:59 11/26/17 08:32 Folic Acid (Folate) 2 mg DAILY NG 11/22/17 09:00 12/20/17 20:59 11/26/17 08:32 Heparin Sodium (Porcine) (Heparin 5000 units/ml) 5,000 units EVERY 12 HOURS SUBQ 11/10/17 09:00 12/10/17 08:59 11/25/17 08:25 Lansoprazole (Prevacid) 30 mg DAILY NG 11/22/17 09:00 12/22/17 08:59 11/26/17 08:32 Levetiracetam 1500 mg/Dextrose 110 ml @ 440 mls/hr Q12HR IV 11/25/17 21:00 12/25/17 20:59 11/26/17 08:36 Midodrine (Pro-Amatine) 10 mg THREE TIMES A DAY ORAL 11/20/17 18:00 12/20/17 17:59 11/26/17 08:33 Ondansetron HCl (Zofran) 4 mg Q4H PRN IVP Nausea & Vomiting 11/09/17 21:30 12/09/17 21:29 Sennosides (Senokot) 1 tab DAILY PRN ORAL Constipation 11/09/17 21:30 12/09/17 21:29 Jose Montalvo MD Nov 26, 2017 12:33
--- NOTE | 2017-11-26 12:43 | Pre-Procedure Note/Attestation ---
Pre-Procedure Note/Attestation Complete Prior to Procedure Planned Procedure: not applicable Procedure Narrative: egd/peg Indications for Procedure Pre-Operative Diagnosis: dysphagia Attestation I attest that I discussed the nature of the procedure; its benefits; risks and complications; and alternatives (and the risks and benefits of such alternatives ), prior to the procedure, with the patient (or the patient's legal premium representative). I attest that, if there was a reasonable possibility of needing a blood transfusion, the patient (or the patient's legal premium representative) was given the [facility] standardized written summary, pursuant to the Osmin Kartik Blood Safety Act ([place] Health and Safety Code # 1645, as amended). I attest that I re-evaluated the patient just prior to the surgery and that there has been no change in the patient's H&P, except as documented below: Laith Chan MD Nov 26, 2017 12:43
[2017-11-26] MEDS ORDERED: Lidocaine 1% MPF 10mg/ml 5ml ONE (13:00)
[2017-11-26] MEDS ORDERED: Propofol 200mg/20ml IV ONE (13:00)
[2017-11-26] MEDS ORDERED: NS 500ML IVPB ONE (13:11)
--- NOTE | 2017-11-26 13:18 | Nephrology Progress Note ---
Assessment/Plan Problem List: (1) Hypotension (2) Acute renal failure (ARF) (3) Dehydration with hypernatremia (4) Severe sepsis (5) Shock (6) Dehydration, severe Assessment Acute kidney injury, likely on chronic kidney disease. Cr lowering Hypernatremia, with an initial sodium of 177. Na lowering Profound dehydration. improving Shock, likely septic. Hypercalcemia. on presentation Urinary tract infection. Has supraPubic cath History of traumatic brain injury, dementia, and seizure disorder. History of staghorn renal calculi with multiple UTIs, status post Plan NGT and Midodrine- K supplements as needed D5W Albumin bolus PRN KCL, Mag , Phos as needed Antibiotics Anemia yarbrough Monitor renal parameters- Avoid Nephrotoxics Due PEG- Consent taken when stable Subjective ROS Limited/Unobtainable: No Constitutional: Reports: malaise Objective Objective Last 24 Hour Vital Signs Date Time Temp Pulse Resp B/P (MAP) Pulse Ox O2 Delivery O2 Flow Rate FiO2 11/26/17 12:00 Nasal Cannula 3.0 11/26/17 12:00 95.5 71 18 115/74 (88) 94 95.5 11/26/17 10:01 57 11/26/17 08:00 Nasal Cannula 3.0 11/26/17 08:00 96.0 72 16 107/72 (84) 99 96.0 11/26/17 07:00 Nasal Cannula 2.0 28 11/26/17 07:00 100 Nasal Cannula 2.0 28 11/26/17 05:20 69 18 100 11/26/17 04:00 97.8 74 16 105/68 (80) 100 97.8 11/26/17 04:00 Nasal Cannula 3.0 11/26/17 04:00 35 11/26/17 04:00 54 11/26/17 03:17 55 18 100 Facial 35 11/26/17 01:15 61 18 100 Facial 35 11/26/17 00:00 Nasal Cannula 3.0 11/26/17 00:00 80 11/26/17 00:00 35 11/26/17 00:00 97.9 81 18 101/69 (80) 100 97.9 11/25/17 23:00 61 18 100 Facial 35 11/25/17 22:15 Full Face 11/25/17 22:00 66 18 100 Facial 35 11/25/17 22:00 35 11/25/17 20:00 Nasal Cannula 3.0 11/25/17 20:00 97.8 75 16 96/67 (77) 100 97.8 11/25/17 20:00 64 11/25/17 20:00 3.0 11/25/17 18:35 100 Nasal Cannula 2.0 28 11/25/17 18:35 Nasal Cannula 2.0 28 11/25/17 16:00 97.5 78 18 98/56 (70) 100 97.5 11/25/17 16:00 Nasal Cannula 3.0 11/25/17 15:54 68 Intake and Output 11/25/17 11/26/17 19:00 07:00 Intake Total 2250 ml 1938 ml Output Total 1300 ml 1300 ml Balance 950 ml 638 ml Free Water 200 ml 50 ml IV Total 1500 ml 1638 ml Tube Feeding 550 ml 250 ml Output Urine Total 1300 ml 1300 ml # Bowel Movements 1 1 Laboratory Tests 11/26/17 05:42: White Blood Count 6.6, Red Blood Count 2.65L, Hemoglobin 7.5L, Hematocrit 23.9L , Mean Corpuscular Volume 90, Mean Corpuscular Hemoglobin 28.2, Mean Corpuscular Hemoglobin Concent 31.3L, Red Cell Distribution Width 15.6H, Platelet Count 145L, Mean Platelet Volume 7.2, Neutrophils (%) (Auto) , Lymphocytes (%) (Auto) , Monocytes (%) (Auto) , Eosinophils (%) (Auto) , Basophils (%) (Auto) , Differential Total Cells Counted 100, Neutrophils % ( Manual) 65, Lymphocytes % (Manual) 25, Monocytes % (Manual) 4, Eosinophils % ( Manual) 4H, Basophils % (Manual) 0, Band Neutrophils 2, Platelet Estimate Adequate, Platelet Morphology Normal, Hypochromasia 1+, Anisocytosis 1+, Sodium Level 146H, Potassium Level 4.2, Chloride Level 112H, Carbon Dioxide Level 29, Anion Gap 5, Blood Urea Nitrogen 30H, Creatinine 2.0H, Estimat Glomerular Filtration Rate 26.0, Glucose Level 104, Calcium Level 8.9 11/26/17 09:55: White Blood Count 6.2, Red Blood Count 2.76L, Hemoglobin 7.8L, Hematocrit 24.9L , Mean Corpuscular Volume 90, Mean Corpuscular Hemoglobin 28.3, Mean Corpuscular Hemoglobin Concent 31.3L, Red Cell Distribution Width 15.5H, Platelet Count 135L, Mean Platelet Volume 7.1, Neutrophils (%) (Auto) , Lymphocytes (%) (Auto) , Monocytes (%) (Auto) , Eosinophils (%) (Auto) , Basophils (%) (Auto) , Differential Total Cells Counted 100, Neutrophils % ( Manual) 66, Lymphocytes % (Manual) 29, Monocytes % (Manual) 3, Eosinophils % ( Manual) 2, Basophils % (Manual) 0, Band Neutrophils 0, Platelet Estimate DecreasedL, Platelet Morphology Normal, Hypochromasia 1+, Anisocytosis 1+, Prothrombin Time 10.0, Prothromb Time International Ratio 0.9, Activated Partial Thromboplast Time 38H Height (Feet): 5 Height (Inches): 2.00 Weight (Pounds): 132 General Appearance: no apparent distress Neck: limited range of motion Respiratory/Chest: decreased breath sounds Abdomen: soft, distended Objective no change Parrish Luo MD Nov 26, 2017 13:18
--- NOTE | 2017-11-26 13:28 | Endoscopy Procedure Note ---
Endoscopy Procedure Note General Indication for Procedure: dysphagia Procedures Performed: EGD, PEG Operative Findings/Diagnosis: same Specimen: none Pt Tolerated Procedure Well: Yes Estimated Blood Loss: none Anesthesia Anesthesiologist: pollo Anesthesia: MAC Inserted Devices Implant(s) used?: No GI Core Measures 50 yrs or older w/o bx or poly: Not Applicable 10yrs. F/U not recommended: Not Applicable Laith Chan MD Nov 26, 2017 13:28
--- NOTE | 2017-11-26 14:16 | Immediate Post-Op Evaluation ---
Immediate Post-Op Evalulation Immediate Post-Op Evalulation Procedure: egd/peg Date of Evaluation: Nov 26, 2017 Time of Evaluation: 13:45 IV Fluids: 125ml 0.9ns Blood Products: none Estimated Blood Loss: negligilbe Blood Pressure Systolic: 107 Blood Pressure Diastolic: 48 Pulse Rate: 61 Respiratory Rate: 18 O2 Sat by Pulse Oximetry: 99 Temperature (Fahrenheit): 98.1 Pain Score (1-10): 0 Nausea: No Vomiting: No Complications none Patient Status: awake, reacts, patent Hydration Status: adequate Drug: clindamycin 600mg Given Within 1 Hr of Incision: Yes Time Given: 13:21 Magi Fuentes MD Nov 26, 2017 14:16
[2017-11-26] MEDS ORDERED: Midazolam 2mg/2ml Inj IVP PRN (14:30)
[2017-11-26] MEDS ORDERED: DiphenhydrAMINE 50mg/ml Inj IVP PRN (14:30)
[2017-11-26] MEDS ORDERED: Atropine Inj 1mg/10ml Syr IV PRN (14:30)
--- NOTE | 2017-11-26 14:53 | Consultation ---
Consult Note Consult Note Hematology Consultation REQ : Jose Montalvo RUST: Anemia and thrombocytopenia DATE OF CONSULTATION: 11/26/2017 HISTORY: Ms. 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 She also has a history of a seizure disorder, the exact type of seizure disorder is unknown. 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 is at baseline nonverbal, had a trach takedown. She was hospitalized for urinary tract infection and sepsis on 11/09/2017. Her mental state had improved and she was giving some yes/no answers by nodding. Today, there was a sudden decline in her mental state and she became much less responsive. At this point in time, she is completely unresponsive. NO hx obtained from patient, unable to do so. She is anemic and with a low plt count. PAST MEDICAL HISTORY: Significant for severe head trauma with a right-sided craniectomy and significant right brain encephalomalacia, seizure disorder, left plegia, respiratory failure, urinary tract infections and multiple episodes of sepsis. FAMILY HISTORY: Unavailable. PERSONAL HISTORY: Home: She lives in a mcc. Work: She is unemployed. Habits: None at this point in time. PRESENT MEDICATIONS: midodrine, vancomycin, ertapenem, heparin for DVT prophylaxis, Protonix, Keppra 500 mg q.12 hours, Senokot, Tylenol, and Zofran. PHYSICAL EXAMINATION: GENERAL: She is a well-developed lady, lying in bed, in no acute distress. VITAL SIGNS: have been reviewed HEAD: Normocephalic with right craniectomy defect. EENT: Examination benign. NECK: No neck rigidity was observed. NEURO: nonverbal Laboratory Tests Test 11/26/17 05:42 11/26/17 09:55 White Blood Count 6.6 K/UL (4.8-10.8) 6.2 K/UL (4.8-10.8) Red Blood Count 2.65 M/UL (4.20-5.40) L 2.76 M/UL (4.20-5.40) L Hemoglobin 7.5 G/DL (12.0-16.0) L 7.8 G/DL (12.0-16.0) L Hematocrit 23.9 % (37.0-47.0) L 24.9 % (37.0-47.0) L Mean Corpuscular Volume 90 FL (80-99) 90 FL (80-99) Mean Corpuscular Hemoglobin 28.2 PG (27.0-31.0) 28.3 PG (27.0-31.0) Mean Corpuscular Hemoglobin Concent 31.3 G/DL (32.0-36.0) L 31.3 G/DL (32.0-36.0) L Red Cell Distribution Width 15.6 % (11.6-14.8) H 15.5 % (11.6-14.8) H Platelet Count 145 K/UL (150-450) L 135 K/UL (150-450) L Mean Platelet Volume 7.2 FL (6.5-10.1) 7.1 FL (6.5-10.1) Neutrophils (%) (Auto) % (45.0-75.0) % (45.0-75.0) Lymphocytes (%) (Auto) % (20.0-45.0) % (20.0-45.0) Monocytes (%) (Auto) % (1.0-10.0) % (1.0-10.0) Eosinophils (%) (Auto) % (0.0-3.0) % (0.0-3.0) Basophils (%) (Auto) % (0.0-2.0) % (0.0-2.0) Differential Total Cells Counted 100 100 Neutrophils % (Manual) 65 % (45-75) 66 % (45-75) Lymphocytes % (Manual) 25 % (20-45) 29 % (20-45) Monocytes % (Manual) 4 % (1-10) 3 % (1-10) Eosinophils % (Manual) 4 % (0-3) H 2 % (0-3) Basophils % (Manual) 0 % (0-2) 0 % (0-2) Band Neutrophils 2 % (0-8) 0 % (0-8) Platelet Estimate Adequate Decreased L Platelet Morphology Normal Normal Hypochromasia 1+ 1+ Anisocytosis 1+ 1+ Sodium Level 146 MMOL/L (136-145) H Potassium Level 4.2 MMOL/L (3.5-5.1) Chloride Level 112 MMOL/L (98-107) H Carbon Dioxide Level 29 MMOL/L (21-32) Anion Gap 5 mmol/L (5-15) Blood Urea Nitrogen 30 mg/dL (7-18) H Creatinine 2.0 MG/DL (0.55-1.30) H Estimat Glomerular Filtration Rate 26.0 mL/min (>60) Glucose Level 104 MG/DL (74-106) Calcium Level 8.9 MG/DL (8.5-10.1) Prothrombin Time 10.0 SEC (9.30-11.50) Prothromb Time International Ratio 0.9 (0.9-1.1) Activated Partial Thromboplast Time 38 SEC (23-33) H ASSESSMENT AND RECOMMENDATIONS: #. Anemia of chronic disease -- workup has been reviewed from before and noted to have high ferritin 1500, other labs consistent with ACD --> monitor and started on folic acid --> hgb goal >7, transfuse prn basis --> remains critically ill, bioethics/hospice services consulted #. 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 She also has a history of a seizure disorder that is undefined. --> appreciate neurp recs # Respiratory failure and now s/p takedown --> appreicate pulm recs # Urinary tract infections, and multiple episodes of sepsis. --> s/p abx treatment and seen by ID # Hydronephrosis r kidney --> may need stent exchange per uro Appreciate consultation greatly. Continue to follow. Dawit Mcclendon MD Nov 26, 2017 14:53
[2017-11-26 16:00] VITALS: BP 108/57
--- NOTE | 2017-11-26 16:24 | Infectious Diseases Prog Note ---
Assessment/Plan Problems: (1) Catheter-associated urinary tract infection Assessment & Plan: with nahed spp , recommend to change suprapubic catheter since it is colonized with yeast, will continue fluconazole for 14 days (2) Altered mental state Assessment & Plan: back to the baseline , neurology is following, head CT no acute pathology (3) Acute pyelonephritis Assessment & Plan: with MDR Providencia stuartii, and MRSA , suspect due to right ureter stent obstruction, S/P vancomycin to cover for MRSA , and ertapenem for MDR Providencia stuartii for two weeks total , urology eval is in progress , may need stent removal . (4) Hydronephrosis of right kidney Assessment & Plan: suspect ureter stent malfunction , urology eval is in progress, may need stent removal (5) Severe sepsis Assessment & Plan: with staph simulans , most likely contamination , grew from one set only. S/P vancomycin for two weeks for MRSA pyelonephritis, repeated blood culture is negative (6) Renal failure Assessment & Plan: continue aggressive hydration , monitor renal function, avoid nephrotoxics (7) Colonization with VRE (vancomycin-resistant enterococcus) Assessment & Plan: keep in contact isolation (8) Hypotension Assessment & Plan: doubt due to sepsis , suspect dehydration . cortisol level looks ok . repeated blood culture is negative (9) Diarrhea Assessment & Plan: not due to C diff with negative toxin , continue aggressive hydration Subjective ROS Limited/Unobtainable: Yes Allergies: Coded Allergies: CEFEPIME (Unverified Allergy, Unknown, 11/09/17) Subjective she was lying in bed, awake and responsive to calling her name , she had PEG tube placement, nonverbal , off BIPAP machine , a febrile Objective Vital Signs Last 24 Hour Vital Signs Date Time Temp Pulse Resp B/P (MAP) Pulse Ox O2 Delivery O2 Flow Rate FiO2 11/26/17 14:16 208.6 61 18 99 11/26/17 12:00 69 11/26/17 12:00 Nasal Cannula 3.0 11/26/17 12:00 95.5 71 18 115/74 (88) 94 95.5 11/26/17 10:01 57 11/26/17 08:00 Nasal Cannula 3.0 11/26/17 08:00 96.0 72 16 107/72 (84) 99 96.0 11/26/17 07:00 Nasal Cannula 2.0 28 11/26/17 07:00 100 Nasal Cannula 2.0 28 11/26/17 05:20 69 18 100 11/26/17 04:00 97.8 74 16 105/68 (80) 100 97.8 11/26/17 04:00 Nasal Cannula 3.0 11/26/17 04:00 35 11/26/17 04:00 54 11/26/17 03:17 55 18 100 Facial 35 11/26/17 01:15 61 18 100 Facial 35 11/26/17 00:00 Nasal Cannula 3.0 11/26/17 00:00 80 11/26/17 00:00 35 11/26/17 00:00 97.9 81 18 101/69 (80) 100 97.9 11/25/17 23:00 61 18 100 Facial 35 11/25/17 22:15 Full Face 11/25/17 22:00 66 18 100 Facial 35 11/25/17 22:00 35 11/25/17 20:00 Nasal Cannula 3.0 11/25/17 20:00 97.8 75 16 96/67 (77) 100 97.8 11/25/17 20:00 64 11/25/17 20:00 3.0 11/25/17 18:35 100 Nasal Cannula 2.0 28 11/25/17 18:35 Nasal Cannula 2.0 28 Height (Feet): 5 Height (Inches): 2.00 Weight (Pounds): 132 General Appearance: WD/WN, no acute distress HEENT: normocephalic, atraumatic, anicteric, mucous membranes moist, PERRL Respiratory/Chest: chest wall non-tender, normal breath sounds, no respiratory distress, no accessory muscle use, decreased breath sounds, crackles/rales Cardiovascular: normal peripheral pulses, normal rate, regular rhythm, no gallop/murmur, no JVD Abdomen: soft, non tender, no organomegaly, non distended, no mass, hypoactive bowel sounds, tender, other Extremities: no cyanosis, no clubbing Skin: no rash, no lesions, no ulcers Neurologic/Psychiatric: alert, responsive Lymphatic: no neck adenopathy, no groin adenopathy Musculoskeletal: normal muscle bulk, no effusion Laboratory Tests Test 11/26/17 05:42 11/26/17 09:55 White Blood Count 6.6 K/UL (4.8-10.8) 6.2 K/UL (4.8-10.8) Red Blood Count 2.65 M/UL (4.20-5.40) L 2.76 M/UL (4.20-5.40) L Hemoglobin 7.5 G/DL (12.0-16.0) L 7.8 G/DL (12.0-16.0) L Hematocrit 23.9 % (37.0-47.0) L 24.9 % (37.0-47.0) L Mean Corpuscular Volume 90 FL (80-99) 90 FL (80-99) Mean Corpuscular Hemoglobin 28.2 PG (27.0-31.0) 28.3 PG (27.0-31.0) Mean Corpuscular Hemoglobin Concent 31.3 G/DL (32.0-36.0) L 31.3 G/DL (32.0-36.0) L Red Cell Distribution Width 15.6 % (11.6-14.8) H 15.5 % (11.6-14.8) H Platelet Count 145 K/UL (150-450) L 135 K/UL (150-450) L Mean Platelet Volume 7.2 FL (6.5-10.1) 7.1 FL (6.5-10.1) Neutrophils (%) (Auto) % (45.0-75.0) % (45.0-75.0) Lymphocytes (%) (Auto) % (20.0-45.0) % (20.0-45.0) Monocytes (%) (Auto) % (1.0-10.0) % (1.0-10.0) Eosinophils (%) (Auto) % (0.0-3.0) % (0.0-3.0) Basophils (%) (Auto) % (0.0-2.0) % (0.0-2.0) Differential Total Cells Counted 100 100 Neutrophils % (Manual) 65 % (45-75) 66 % (45-75) Lymphocytes % (Manual) 25 % (20-45) 29 % (20-45) Monocytes % (Manual) 4 % (1-10) 3 % (1-10) Eosinophils % (Manual) 4 % (0-3) H 2 % (0-3) Basophils % (Manual) 0 % (0-2) 0 % (0-2) Band Neutrophils 2 % (0-8) 0 % (0-8) Platelet Estimate Adequate Decreased L Platelet Morphology Normal Normal Hypochromasia 1+ 1+ Anisocytosis 1+ 1+ Sodium Level 146 MMOL/L (136-145) H Potassium Level 4.2 MMOL/L (3.5-5.1) Chloride Level 112 MMOL/L (98-107) H Carbon Dioxide Level 29 MMOL/L (21-32) Anion Gap 5 mmol/L (5-15) Blood Urea Nitrogen 30 mg/dL (7-18) H Creatinine 2.0 MG/DL (0.55-1.30) H Estimat Glomerular Filtration Rate 26.0 mL/min (>60) Glucose Level 104 MG/DL (74-106) Calcium Level 8.9 MG/DL (8.5-10.1) Prothrombin Time 10.0 SEC (9.30-11.50) Prothromb Time International Ratio 0.9 (0.9-1.1) Activated Partial Thromboplast Time 38 SEC (23-33) H Current Medications Medications (Trade) Dose Ordered Sig/Tay Route PRN Reason Start Time Stop Time Status Last Admin Dose Admin Acetaminophen (Tylenol) 650 mg Q6H PRN ORAL Mild Pain/Temp > 101 11/09/17 21:30 12/09/17 21:29 Al Hydroxide/Mg Hydroxide (Mylanta) 15 ml Q1H PRN ORAL gi upset 11/26/17 14:30 11/26/17 21:00 Albumin Human 500 ml @ 0 mls/hr Q0M IV 11/21/17 15:00 12/21/17 14:59 Atropine Sulfate (Atropine) 0.5 mg Q5M PRN IV HR less than 45 BPM 11/26/17 14:30 11/26/17 21:00 Dextrose 1,000 ml @ 100 mls/hr Q10H IV 11/22/17 09:10 12/22/17 09:09 11/26/17 14:31 Diphenhydramine HCl (Benadryl) 25 mg Q15M PRN IVP Itching 11/26/17 14:30 11/26/17 21:00 Fluconazole (Diflucan) 200 mg DAILY ORAL 11/25/17 14:00 12/05/17 13:59 11/26/17 08:32 Folic Acid (Folate) 2 mg DAILY NG 11/22/17 09:00 12/20/17 20:59 11/26/17 08:32 Heparin Sodium (Porcine) (Heparin 5000 units/ml) 5,000 units EVERY 12 HOURS SUBQ 11/10/17 09:00 12/10/17 08:59 11/25/17 08:25 Hydralazine HCl (Apresoline) 5 mg Q30M PRN IV SBP>160 /DBP>90 11/26/17 14:30 11/26/17 21:00 Lansoprazole (Prevacid) 30 mg DAILY NG 11/22/17 09:00 12/22/17 08:59 11/26/17 08:32 Levetiracetam 1500 mg/Dextrose 110 ml @ 440 mls/hr Q12HR IV 11/25/17 21:00 12/25/17 20:59 11/26/17 08:36 Midazolam HCl (Versed 2mg/2ml vial) 1 mg Q15M PRN IVP For Anxiety 11/26/17 14:30 11/26/17 21:00 Midodrine (Pro-Amatine) 10 mg THREE TIMES A DAY ORAL 11/20/17 18:00 12/20/17 17:59 11/26/17 14:30 Ondansetron HCl (Zofran) 4 mg Q1H PRN IVP Nausea & Vomiting 11/26/17 14:30 11/26/17 21:00 Ondansetron HCl (Zofran) 4 mg Q4H PRN IVP Nausea & Vomiting 11/09/17 21:30 12/09/17 21:29 Sennosides (Senokot) 1 tab DAILY PRN ORAL Constipation 11/09/17 21:30 12/09/17 21:29 Sodium Chloride 1,000 ml @ 10 mls/hr Q24H IVLG 11/26/17 14:17 11/26/17 16:16 Kortney Quiñones M.D. Nov 26, 2017 16:24
--- NOTE | 2017-11-26 17:16 | Neurology Progress Note ---
Interim History Interim History Interim History Ms. Guaman can be aroused with vocal stimulation. She is mumbling but cannot be understood. She she is awake but not alert. She is cognitively impoverished. She is motorically challenged. There has been no change in her neurologic state. She has exhibited no clinical seizures. She had a G-Tube placed today. Review of Systems Neuro Review of Systems Unable to obtain. Objective Physical Exam Last Vital Signs Date Time Temp Pulse Resp B/P (MAP) Pulse Ox O2 Delivery O2 Flow Rate FiO2 11/26/17 16:00 96.0 65 22 108/57 (74) 98 96.0 11/26/17 16:00 Nasal Cannula 3.0 11/26/17 07:00 28 Laboratory Tests Test 11/26/17 05:42 11/26/17 09:55 White Blood Count 6.6 K/UL (4.8-10.8) 6.2 K/UL (4.8-10.8) Red Blood Count 2.65 M/UL (4.20-5.40) L 2.76 M/UL (4.20-5.40) L Hemoglobin 7.5 G/DL (12.0-16.0) L 7.8 G/DL (12.0-16.0) L Hematocrit 23.9 % (37.0-47.0) L 24.9 % (37.0-47.0) L Mean Corpuscular Volume 90 FL (80-99) 90 FL (80-99) Mean Corpuscular Hemoglobin 28.2 PG (27.0-31.0) 28.3 PG (27.0-31.0) Mean Corpuscular Hemoglobin Concent 31.3 G/DL (32.0-36.0) L 31.3 G/DL (32.0-36.0) L Red Cell Distribution Width 15.6 % (11.6-14.8) H 15.5 % (11.6-14.8) H Platelet Count 145 K/UL (150-450) L 135 K/UL (150-450) L Mean Platelet Volume 7.2 FL (6.5-10.1) 7.1 FL (6.5-10.1) Neutrophils (%) (Auto) % (45.0-75.0) % (45.0-75.0) Lymphocytes (%) (Auto) % (20.0-45.0) % (20.0-45.0) Monocytes (%) (Auto) % (1.0-10.0) % (1.0-10.0) Eosinophils (%) (Auto) % (0.0-3.0) % (0.0-3.0) Basophils (%) (Auto) % (0.0-2.0) % (0.0-2.0) Differential Total Cells Counted 100 100 Neutrophils % (Manual) 65 % (45-75) 66 % (45-75) Lymphocytes % (Manual) 25 % (20-45) 29 % (20-45) Monocytes % (Manual) 4 % (1-10) 3 % (1-10) Eosinophils % (Manual) 4 % (0-3) H 2 % (0-3) Basophils % (Manual) 0 % (0-2) 0 % (0-2) Band Neutrophils 2 % (0-8) 0 % (0-8) Platelet Estimate Adequate Decreased L Platelet Morphology Normal Normal Hypochromasia 1+ 1+ Anisocytosis 1+ 1+ Sodium Level 146 MMOL/L (136-145) H Potassium Level 4.2 MMOL/L (3.5-5.1) Chloride Level 112 MMOL/L (98-107) H Carbon Dioxide Level 29 MMOL/L (21-32) Anion Gap 5 mmol/L (5-15) Blood Urea Nitrogen 30 mg/dL (7-18) H Creatinine 2.0 MG/DL (0.55-1.30) H Estimat Glomerular Filtration Rate 26.0 mL/min (>60) Glucose Level 104 MG/DL (74-106) Calcium Level 8.9 MG/DL (8.5-10.1) Prothrombin Time 10.0 SEC (9.30-11.50) Prothromb Time International Ratio 0.9 (0.9-1.1) Activated Partial Thromboplast Time 38 SEC (23-33) H Neurologic Exam Objective PHYSICAL EXAMINATION: GENERAL: She is a well-developed and well-nourished lady, lying in bed , in no acute distress. HEAD: Normocephalic with right craniectomy defect. EENT: Examination benign. NECK: No neck rigidity was observed. NEUROLOGICAL EXAMINATION: MENTAL STATUS EXAMINATION: She awake but not alert. She was mumbling. Further mental status testing was impossible. SPEECH: She was mumbling. LANGUAGE: Could not be tested. CRANIAL NERVE EXAMINATION: II: She did blink to threat. III, IV & : The eyes were dysconjugate. External ocular movements were present on oculocephalic maneuvers. The pupils were 3 mm in diameter, equal, round, regular, and reactive sluggishly to light. V & VII: Corneal reflexes were present, but brisker on the right than on the left. VIII: She did respond to sounds and had no nystagmus. IX & X: The gag reflex was absent. IX: Sternocleidomastoids and trapezii did function minimally on applying deep painful stimuli. XII: Tongue in the midline. MOTOR SYSTEM: The tone was increased in both lower extremities with spasticity. The tone was relatively normal in the right upper extremity but was diminished in the left upper extremity. Examination of muscle mass revealed wasting of the left upper and lower extremities and in addition a flexion contracture at the elbow. The examination of power was impossible to perform accurately as she did not move her left side at all and moved her right side minimally in a nonpurposeful manner. SENSORY EXAMINATION: She responded to deep pain on the right side but not the left. REFLEXES: 2+ on the left and 2++ on the right at the biceps, triceps, brachioradialis, and knees, 0 at both ankles. The plantar responses were extensor bilaterally. COORDINATION, STANCE & GAIT: Could not be tested. Impression/Recommendations Diagnostic Impression 1. Ms. Yumiko Guaman is a 52-year-old, lady, of unknown handedness, who does have a past history of severe brain trauma with a right-sided craniectomy and significant right brain encephalomalacia. She also has a history of a seizure disorder that is undefined. She has a left plegia and prior episodes of respiratory failure, urinary tract infections, and multiple episodes of sepsis. She was hospitalized on 11/09/2017 for a urinary tract infection associated with sepsis but her mental state improved with treatment of those conditions. on 11/20/17 there was a sudden decline in her level of arousal. 2. She can be aroused with vocal stimulation. She is mumbling but cannot be understood. She is awake but not alert. She is cognitively impoverished. She is motorically challenged. There has been no change in her neurologic state. She has exhibited no clinical seizures. 3. On neurological examination at this time, she does demonstrate a right-sided craniectomy. She is awake but not alert. She is mumbling when asked questions. Further mental status testing is impossible. Language cannot be tested. She does blink to visual threat. The corneal reflexes are diminished on the left side compared to the right. She has left upper extremity greater than lower extremity contractures and left-sided plegia and significant right-sided hemiparesis. She only responds to deep pain on the right side with minimal withdrawal but not on the left side. The deep tendon reflexes are brisker on the right side compared to the left and she has extensor plantar responses bilaterally. 4. CT scan of the brain without contrast performed on 11/20/2017 revealed a large right convexity craniectomy and extensive underlying temporal and parietal encephalomalacia. There was also encephalomalacia of the right cerebellum. There was a left frontal craniotomy defect with overlying mesh. There was no significant underlying parenchymal abnormality on the left side. She also had right-sided ventriculostomy. No acute pathology was noted. 5. Laboratory data revealed that she was anemic with a hemoglobin of 10.5 G. Her WBC count was 10,000 but she had a left-sided shift with 80% polymorphonuclear leukocytes. The chemistry panel revealed a creatinine elevated to 2.0. The ammonia was minimally elevated at 34. The Vitamin B12 level and TSH were normal. The Folate was minimally low at 3.9. The Urinalysis that was done on 11/09/2017 revealed 3+ leukocyte esterase, 40-60 RBCs and 40-60 WBCs per high-power field. Her latest arterial blood gas revealed a pH of 7.35, pCO2 of 42, and pO2 of 60. 6. The EEG done on 11/21/17 revealed severe generalized cerebral dysfunction and multiple electrographic seizures emanating from the right fronto-central region sometimes lasting al long as 120 seconds. 7. The EEG done on 11/24/17 revealed a continuous electrographic seizure emanating from the right fronto-central area during her entire EEG and severe generalized cerebral dysfunction. 8. The patient's history, neurological examination, and laboratory data and imaging studies are most compatible with worsening of a toxic metabolic encephalopathy and in addition subclinical electrographic seizures emanating from the right fronto-central region. Recommendations 1. Continue present management. 2. Continue present therapeutic management. 3. Continue aggressive antibiotic treatment. 4. Continue to correct the patient's toxic metabolic imbalances. 5. Continue Keppra 1500 mg IV q 12 hours. 6. Observe closely. Roseann Barnes M.D., M.S.P.H. ROSEANN BARNES Nov 26, 2017 17:16
--- NOTE | 2017-11-26 18:00 | Procedure Note ---
DATE OF PROCEDURE: 11/26/2017 SURGEON: Laith Chan M.D. ANESTHESIOLOGIST: Dr. Alcantar. PROCEDURE: Upper endoscopy with G-tube placement. ANESTHESIA: Per Dr. Alcantar. INSTRUMENT: Olympus adult flexible upper endoscope. INDICATION: Dysphagia. The procedure, risks, benefits, and possible consequences, including hemorrhage, aspiration, perforation and infection, and alternative treatments, were explained to the patient/legal guardian by Dr. Laith Chan and the patient/legal guardian understood and accepted these risks. DESCRIPTION OF PROCEDURE: After informed consent was obtained and the patient was adequately sedated, Olympus upper endoscope was advanced from the mouth into the second portion of duodenum and retroflexion was performed in stomach. The patient had evidence of diffuse gastritis. Then under endoscopic guidance, under sterile condition, a 20-Gabonese pull type of G-tube was successfully placed in the epigastric area. The distance from the tip of the tube to skin was about 2.5 cm in size. The patient tolerated the procedure very well without any complication. SUMMARY OF FINDINGS: Status post successful PEG placement. RECOMMENDATIONS: Abdominal binder. Elevate the head of bed at all times. G-tube flush. G-tube care. Start tube feeding later today. So Locke JOB#: [id number] CC:
[2017-11-26 20:00] VITALS: BP 118/72
[2017-11-27] VITALS: BP 114/79
[2017-11-27 04:00] VITALS: BP 119/84
[2017-11-27 04:57] LABS: EOSINOPHILS % (AUTO) 2.6 % (0.0-3.0); HEMATOCRIT 25.9 % (37.0-47.0); HEMOGLOBIN 8.2 G/DL (12.0-16.0); LYMPHOCYTES % (AUTO) 17.9 % (20.0-45.0); MEAN CORPUSCULAR VOLUME 90 FL (80-99); MONOCYTES % (AUTO) 5.7 % (1.0-10.0); NEUTROPHILS % (AUTO) 72.8 % (45.0-75.0); PLATELET COUNT 185 K/UL (150-450); RED BLOOD COUNT 2.87 M/UL (4.20-5.40); RED CELL DISTRIBUTION WIDTH 15.6 % (11.6-14.8); WHITE BLOOD COUNT 8.4 K/UL (4.8-10.8)
[2017-11-27 05:08] LABS: ANION GAP 4 mmol/L (5-15); BLOOD UREA NITROGEN 28 mg/dL (7-18); CALCIUM 8.9 MG/DL (8.5-10.1); CARBON DIOXIDE 30 MMOL/L (21-32); CHLORIDE 109 MMOL/L (98-107); CREATININE 2.1 MG/DL (0.55-1.30); POTASSIUM 4.5 MMOL/L (3.5-5.1); SODIUM 143 MMOL/L (136-145)
--- NOTE | 2017-11-27 07:15 | General Progress Note ---
Assessment/Plan Assessment/Plan ASSESSMENT AND RECOMMENDATIONS: #. Anemia of chronic disease -- workup has been reviewed from before and noted to have high ferritin 1500, other labs consistent with ACD --> monitor and started on folic acid --> hgb goal >7, transfuse prn basis --> remains critically ill, bioethics/hospice services consulted #. 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 She also has a history of a seizure disorder that is undefined. --> appreciate neuro recs # Respiratory failure and now s/p takedown --> appreciate pulm recs # Urinary tract infections, and multiple episodes of sepsis. --> s/p abx treatment and seen by ID # Hydronephrosis r kidney --> may need stent exchange per uro # Dysphagia s/p peg tube Appreciate consultation greatly. Continue to follow. Subjective Constitutional: Denies: no symptoms, chills, diaphoresis, fever, malaise, weakness, other HEENT: Denies: no symptoms, eye pain, blurred vision, tearing, double vision, ear pain, ear discharge, nose pain, nose congestion, throat pain, throat swelling, mouth pain, mouth swelling, other Cardiovascular: Denies: no symptoms, chest pain, edema, irregular heart rate, lightheadedness, palpitations, syncope, other Respiratory: Denies: no symptoms, cough, orthopnea, shortness of breath, SOB with excertion, SOB at rest, sputum, stridor, wheezing, other Gastrointestinal/Abdominal: Denies: no symptoms, abdomen distended, abdominal pain, black stools, tarry stools, blood in stool, constipated, diarrhea, difficulty swallowing, nausea, poor appetite, poor fluid intake, rectal bleeding , vomiting, other Genitourinary: Denies: no symptoms, burning, discharge, frequency, flank pain, hematuria, incontinence, pain, urgency, other Neurologic/Psychiatric: Denies: no symptoms, anxiety, depressed, emotional problems, headache, numbness, paresthesia, pre-existing deficit, seizure, tingling, tremors, weakness, other Endocrine: Denies: no symptoms, excessive sweating, flushing, intolerance to cold, intolerance to heat, increased hunger, increased thirst, increased urine, unexplained weight gain, unexplained weight loss, other Hematologic/Lymphatic: Denies: no symptoms, anemia, easy bleeding, easy bruising, other Allergies: Coded Allergies: CEFEPIME (Unverified Allergy, Unknown, 11/09/17) Subjective peg tube has been placed, no events on bipap Objective Last 24 Hour Vital Signs Date Time Temp Pulse Resp B/P (MAP) Pulse Ox O2 Delivery O2 Flow Rate FiO2 11/27/17 07:01 Bi-pap 40 11/27/17 07:01 88 23 100 Full Face 45 11/27/17 07:00 100 Bi-pap 45 11/27/17 05:04 90 24 95 Full Face 45 11/27/17 04:00 Nasal Cannula 3.0 11/27/17 04:00 98.4 81 20 119/84 (96) 100 98.4 11/27/17 04:00 84 11/27/17 03:30 94 27 96 Full Face 45 11/27/17 00:31 93 27 92 Facial 45 11/27/17 00:00 98.2 75 18 114/79 (91) 100 98.2 11/27/17 00:00 Nasal Cannula 3.0 11/27/17 00:00 98 11/26/17 23:21 102 39 94 Facial 45 11/26/17 22:00 110 45 93 Facial 45 11/26/17 20:00 97.8 69 20 118/72 (87) 99 97.8 11/26/17 20:00 Nasal Cannula 3.0 11/26/17 20:00 90 11/26/17 19:00 Nasal Cannula 2.0 28 11/26/17 19:00 92 Nasal Cannula 2.0 28 11/26/17 16:00 96.0 65 22 108/57 (74) 98 96.0 11/26/17 16:00 63 11/26/17 16:00 Nasal Cannula 3.0 11/26/17 14:16 208.6 61 18 99 11/26/17 12:00 69 11/26/17 12:00 Nasal Cannula 3.0 9/26/18 12:00 95.5 71 18 115/74 (88) 94 95.5 11/26/17 10:01 57 11/26/17 08:00 Nasal Cannula 3.0 11/26/17 08:00 96.0 72 16 107/72 (84) 99 96.0 Intake and Output 11/26/17 11/27/17 19:00 07:00 Intake Total 1300 ml 2390 ml Output Total 1350 ml 1400 ml Balance -50 ml 990 ml Intake Oral 0 ml Free Water 300 ml IV Total 1210 ml 1640 ml Tube Feeding 90 ml 450 ml Output Urine Total 1350 ml 1400 ml # Bowel Movements 1 Laboratory Tests 11/26/17 09:55: White Blood Count 6.2, Red Blood Count 2.76L, Hemoglobin 7.8L, Hematocrit 24.9L , Mean Corpuscular Volume 90, Mean Corpuscular Hemoglobin 28.3, Mean Corpuscular Hemoglobin Concent 31.3L, Red Cell Distribution Width 15.5H, Platelet Count 135L, Mean Platelet Volume 7.1, Neutrophils (%) (Auto) , Lymphocytes (%) (Auto) , Monocytes (%) (Auto) , Eosinophils (%) (Auto) , Basophils (%) (Auto) , Differential Total Cells Counted 100, Neutrophils % ( Manual) 66, Lymphocytes % (Manual) 29, Monocytes % (Manual) 3, Eosinophils % ( Manual) 2, Basophils % (Manual) 0, Band Neutrophils 0, Platelet Estimate DecreasedL, Platelet Morphology Normal, Hypochromasia 1+, Anisocytosis 1+, Prothrombin Time 10.0, Prothromb Time International Ratio 0.9, Activated Partial Thromboplast Time 38H 11/27/17 04:00: White Blood Count 8.4, Red Blood Count 2.87L, Hemoglobin 8.2L, Hematocrit 25.9L , Mean Corpuscular Volume 90, Mean Corpuscular Hemoglobin 28.6, Mean Corpuscular Hemoglobin Concent 31.7L, Red Cell Distribution Width 15.6H, Platelet Count 185, Mean Platelet Volume 7.3, Neutrophils (%) (Auto) 72.8, Lymphocytes (%) (Auto) 17.9L, Monocytes (%) (Auto) 5.7, Eosinophils (%) (Auto) 2.6, Basophils (%) (Auto) 1.0, Sodium Level 143, Potassium Level 4.5, Chloride Level 109H, Carbon Dioxide Level 30, Anion Gap 4L, Blood Urea Nitrogen 28H, Creatinine 2.1H, Estimat Glomerular Filtration Rate 24.6, Glucose Level 104, Calcium Level 8.9 Height (Feet): 5 Height (Inches): 2.00 Weight (Pounds): 132 General Appearance: alert EENT: TMs normal Neck: supple Cardiovascular: regular rhythm Respiratory/Chest: chest wall non-tender Abdomen: other - peg tube and BIPAP Extremities: normal range of motion Edema: 1+ Leg (L), 1+ Leg (R) Edema: trace edema Neurologic: alert Dawit Mcclendon MD Nov 27, 2017 07:15
[2017-11-27 08:00] VITALS: BP 87/61
[2017-11-27] MEDS: Heparin 5000 units/ml inj SUBQ SCH ×2 (09:55→20:51)
[2017-11-27] MEDS: Fluconazole 100mg tab ORAL SCH (09:56)
[2017-11-27] MEDS: Midodrine 10mg tab GT SCH ×3 (09:56→17:30)
[2017-11-27] MEDS: levETIRAcetam 1,500 MG in D5W 95 ML IV SCH ×2 (10:04→21:34)
--- NOTE | 2017-11-27 10:13 | Urology Progress Note ---
Assessment/Plan Assessment/Plan 1. History of hydronephrosis that is chronic. 2. Renal insufficiency, acute on chronic, labile. 3. Hematuria. 4. Pyuria/UTI/colonized. 5. Proteinuria. 6. Urinary retention with chronic suprapubic tube. 7. Neurogenic bladder. sp tube indwelling, last exchanged 11/18 hand irrigated, patent abx as ordered, diflucan monitor renal fxn need old recs indwelling ureteral stents can be addressed by pt's outside urologist once medically more stable Subjective Allergies: Coded Allergies: CEFEPIME (Unverified Allergy, Unknown, 11/09/17) Subjective all noted Objective Last 24 Hour Vital Signs Date Time Temp Pulse Resp B/P (MAP) Pulse Ox O2 Delivery O2 Flow Rate FiO2 11/27/17 08:53 64 11/27/17 08:15 Nasal Cannula 3.0 11/27/17 08:00 96.8 83 20 87/61 (70) 99 96.8 11/27/17 07:01 Bi-pap 40 11/27/17 07:01 88 23 100 Full Face 45 11/27/17 07:00 100 Bi-pap 45 11/27/17 05:04 90 24 95 Full Face 45 11/27/17 04:00 Nasal Cannula 3.0 11/27/17 04:00 98.4 81 20 119/84 (96) 100 98.4 11/27/17 04:00 84 11/27/17 03:30 94 27 96 Full Face 45 11/27/17 00:31 93 27 92 Facial 45 11/27/17 00:00 98.2 75 18 114/79 (91) 100 98.2 11/27/17 00:00 Nasal Cannula 3.0 11/27/17 00:00 98 11/26/17 23:21 102 39 94 Facial 45 11/26/17 22:00 110 45 93 Facial 45 11/26/17 20:00 97.8 69 20 118/72 (87) 99 97.8 11/26/17 20:00 Nasal Cannula 3.0 11/26/17 20:00 90 11/26/17 19:00 Nasal Cannula 2.0 28 11/26/17 19:00 92 Nasal Cannula 2.0 28 11/26/17 16:00 96.0 65 22 108/57 (74) 98 96.0 11/26/17 16:00 63 11/26/17 16:00 Nasal Cannula 3.0 11/26/17 14:16 208.6 61 18 99 11/26/17 12:00 69 11/26/17 12:00 Nasal Cannula 3.0 11/26/17 12:00 95.5 71 18 115/74 (88) 94 95.5 Intake and Output 11/26/17 11/27/17 19:00 07:00 Intake Total 1300 ml 2390 ml Output Total 1350 ml 1400 ml Balance -50 ml 990 ml Intake Oral 0 ml Free Water 300 ml IV Total 1210 ml 1640 ml Tube Feeding 90 ml 450 ml Output Urine Total 1350 ml 1400 ml # Bowel Movements 1 Microbiology Date/Time Source Procedure Growth Status 11/13/17 15:10 Blood Blood Culture - Final NO GROWTH AFTER 5 DAYS Complete 11/09/17 20:25 Nasal Nares MRSA Culture - Final Staphylococcus Aureus - Mrsa Complete 11/21/17 14:30 Stool Clostridium difficile Toxin Assay - Final Complete 11/20/17 19:14 Urine,Clean Catch Urine Culture - Final Amy Albicans Complete 11/10/17 20:25 Rectum - Final NO CARBAPENEM-RESISTANT ENTEROBACTERI... Complete Current Medications Medications (Trade) Dose Ordered Sig/Tay Route PRN Reason Start Time Stop Time Status Last Admin Dose Admin Acetaminophen (Tylenol) 650 mg Q6H PRN ORAL Mild Pain/Temp > 101 11/09/17 21:30 12/09/17 21:29 Albumin Human 500 ml @ 0 mls/hr Q0M IV 11/21/17 15:00 12/21/17 14:59 Fluconazole (Diflucan) 200 mg DAILY ORAL 11/25/17 14:00 12/05/17 13:59 11/27/17 09:56 Folic Acid (Folate) 2 mg DAILY NG 11/22/17 09:00 12/20/17 20:59 11/27/17 09:57 Heparin Sodium (Porcine) (Heparin 5000 units/ml) 5,000 units EVERY 12 HOURS SUBQ 11/10/17 09:00 12/10/17 08:59 11/27/17 09:55 Lansoprazole (Prevacid) 30 mg DAILY NG 11/22/17 09:00 12/22/17 08:59 11/27/17 09:56 Levetiracetam 1500 mg/Dextrose 110 ml @ 440 mls/hr Q12HR IV 11/25/17 21:00 12/25/17 20:59 11/27/17 10:04 Midodrine (Pro-Amatine) 10 mg THREE TIMES A DAY GT 11/27/17 09:00 12/20/17 17:59 11/27/17 09:56 Ondansetron HCl (Zofran) 4 mg Q4H PRN IVP Nausea & Vomiting 11/09/17 21:30 12/09/17 21:29 Sennosides (Senokot) 1 tab DAILY PRN ORAL Constipation 11/09/17 21:30 12/09/17 21:29 Laboratory Tests 11/27/17 04:00: White Blood Count 8.4, Red Blood Count 2.87L, Hemoglobin 8.2L, Hematocrit 25.9L , Mean Corpuscular Volume 90, Mean Corpuscular Hemoglobin 28.6, Mean Corpuscular Hemoglobin Concent 31.7L, Red Cell Distribution Width 15.6H, Platelet Count 185, Mean Platelet Volume 7.3, Neutrophils (%) (Auto) 72.8, Lymphocytes (%) (Auto) 17.9L, Monocytes (%) (Auto) 5.7, Eosinophils (%) (Auto) 2.6, Basophils (%) (Auto) 1.0, Sodium Level 143, Potassium Level 4.5, Chloride Level 109H, Carbon Dioxide Level 30, Anion Gap 4L, Blood Urea Nitrogen 28H, Creatinine 2.1H, Estimat Glomerular Filtration Rate 24.6, Glucose Level 104, Calcium Level 8.9, Hepatitis A IgM Antibody [Pending], Hepatitis B Surface Antigen [Pending], Hepatitis B Core IgM Antibody [Pending], Hepatitis C Antibody [Pending], HIV (1&2) Antibody Rapid Negative Height (Feet): 5 Height (Inches): 2.00 Weight (Pounds): 132 Objective exam stable WILBER GALINDO Nov 27, 2017 10:13
--- NOTE | 2017-11-27 10:23 | Nephrology Progress Note ---
Assessment/Plan Problem List: (1) Hypotension (2) Acute renal failure (ARF) (3) Dehydration with hypernatremia (4) Severe sepsis (5) Shock (6) Dehydration, severe Assessment Acute kidney injury, likely on chronic kidney disease. Cr 2.1 today Hypernatremia, with an initial sodium of 177. Na lowering Profound dehydration. improving Shock, likely septic. Hypercalcemia. on presentation Urinary tract infection. Has supraPubic cath History of traumatic brain injury, dementia, and seizure disorder. History of staghorn renal calculi with multiple UTIs, status post Plan Has PEG now K supplements as needed DC IV on tube feeding Albumin bolus PRN KCL, Mag , Phos as needed Antibiotics Monitor renal parameters- Avoid Nephrotoxics Subjective ROS Limited/Unobtainable: Yes Objective Objective Last 24 Hour Vital Signs Date Time Temp Pulse Resp B/P (MAP) Pulse Ox O2 Delivery O2 Flow Rate FiO2 11/27/17 08:53 64 11/27/17 08:15 Nasal Cannula 3.0 11/27/17 08:00 96.8 83 20 87/61 (70) 99 96.8 11/27/17 07:01 Bi-pap 40 11/27/17 07:01 88 23 100 Full Face 45 11/27/17 07:00 100 Bi-pap 45 11/27/17 05:04 90 24 95 Full Face 45 11/27/17 04:00 Nasal Cannula 3.0 11/27/17 04:00 98.4 81 20 119/84 (96) 100 98.4 11/27/17 04:00 84 11/27/17 03:30 94 27 96 Full Face 45 11/27/17 00:31 93 27 92 Facial 45 11/27/17 00:00 98.2 75 18 114/79 (91) 100 98.2 11/27/17 00:00 Nasal Cannula 3.0 11/27/17 00:00 98 11/26/17 23:21 102 39 94 Facial 45 11/26/17 22:00 110 45 93 Facial 45 11/26/17 20:00 97.8 69 20 118/72 (87) 99 97.8 11/26/17 20:00 Nasal Cannula 3.0 11/26/17 20:00 90 11/26/17 19:00 Nasal Cannula 2.0 28 11/26/17 19:00 92 Nasal Cannula 2.0 28 11/26/17 16:00 96.0 65 22 108/57 (74) 98 96.0 11/26/17 16:00 63 11/26/17 16:00 Nasal Cannula 3.0 11/26/17 14:16 208.6 61 18 99 11/26/17 12:00 69 11/26/17 12:00 Nasal Cannula 3.0 11/26/17 12:00 95.5 71 18 115/74 (88) 94 95.5 Intake and Output 11/26/17 11/27/17 19:00 07:00 Intake Total 1300 ml 2390 ml Output Total 1350 ml 1400 ml Balance -50 ml 990 ml Intake Oral 0 ml Free Water 300 ml IV Total 1210 ml 1640 ml Tube Feeding 90 ml 450 ml Output Urine Total 1350 ml 1400 ml # Bowel Movements 1 Laboratory Tests 11/27/17 04:00: White Blood Count 8.4, Red Blood Count 2.87L, Hemoglobin 8.2L, Hematocrit 25.9L , Mean Corpuscular Volume 90, Mean Corpuscular Hemoglobin 28.6, Mean Corpuscular Hemoglobin Concent 31.7L, Red Cell Distribution Width 15.6H, Platelet Count 185, Mean Platelet Volume 7.3, Neutrophils (%) (Auto) 72.8, Lymphocytes (%) (Auto) 17.9L, Monocytes (%) (Auto) 5.7, Eosinophils (%) (Auto) 2.6, Basophils (%) (Auto) 1.0, Sodium Level 143, Potassium Level 4.5, Chloride Level 109H, Carbon Dioxide Level 30, Anion Gap 4L, Blood Urea Nitrogen 28H, Creatinine 2.1H, Estimat Glomerular Filtration Rate 24.6, Glucose Level 104, Calcium Level 8.9, Hepatitis A IgM Antibody [Pending], Hepatitis B Surface Antigen [Pending], Hepatitis B Core IgM Antibody [Pending], Hepatitis C Antibody [Pending], HIV (1&2) Antibody Rapid Negative Height (Feet): 5 Height (Inches): 2.00 Weight (Pounds): 132 General Appearance: no apparent distress Respiratory/Chest: decreased breath sounds Abdomen: other - PEG Objective no change Parrish Luo MD Nov 27, 2017 10:23
--- NOTE | 2017-11-27 10:28 | GI Progress Note ---
Assessment/Plan Problems: (1) Electrolyte imbalance ICD Codes: E87.8 - Other disorders of electrolyte and fluid balance, not elsewhere classified SNOMED: 143402000 (2) Encounter for PEG (percutaneous endoscopic gastrostomy) ICD Codes: Z43.1 - Encounter for attention to gastrostomy SNOMED: 253376928, 576166686 (3) Dehydration ICD Codes: E86.0 - Dehydration SNOMED: 44496160 (4) Dehydration, severe ICD Codes: E86.0 - Dehydration SNOMED: 956264091 Status: stable Status Narrative Discussed with Dr. Chan. Assessment/Plan s/p PEG GTFs to goal electrolyte correction per Nephro ppi bowel regime fu labs dc planning The patient was seen and examined at bedside and all new and available data was reviewed in the patients chart. I agree with the above findings, impression and plan. (Patient seen earlier today. Signature stamp does not reflect patient encounter time.). - Laith Chan MD Subjective Subjective limited Objective Last 24 Hour Vital Signs Date Time Temp Pulse Resp B/P (MAP) Pulse Ox O2 Delivery O2 Flow Rate FiO2 11/27/17 08:53 64 11/27/17 08:15 Nasal Cannula 3.0 11/27/17 08:00 96.8 83 20 87/61 (70) 99 96.8 11/27/17 07:01 Bi-pap 40 11/27/17 07:01 88 23 100 Full Face 45 11/27/17 07:00 100 Bi-pap 45 11/27/17 05:04 90 24 95 Full Face 45 11/27/17 04:00 Nasal Cannula 3.0 11/27/17 04:00 98.4 81 20 119/84 (96) 100 98.4 11/27/17 04:00 84 11/27/17 03:30 94 27 96 Full Face 45 11/27/17 00:31 93 27 92 Facial 45 11/27/17 00:00 98.2 75 18 114/79 (91) 100 98.2 11/27/17 00:00 Nasal Cannula 3.0 11/27/17 00:00 98 11/26/17 23:21 102 39 94 Facial 45 11/26/17 22:00 110 45 93 Facial 45 11/26/17 20:00 97.8 69 20 118/72 (87) 99 97.8 11/26/17 20:00 Nasal Cannula 3.0 11/26/17 20:00 90 11/26/17 19:00 Nasal Cannula 2.0 28 11/26/17 19:00 92 Nasal Cannula 2.0 28 11/26/17 16:00 96.0 65 22 108/57 (74) 98 96.0 11/26/17 16:00 63 11/26/17 16:00 Nasal Cannula 3.0 11/26/17 14:16 208.6 61 18 99 11/26/17 12:00 69 11/26/17 12:00 Nasal Cannula 3.0 11/26/17 12:00 95.5 71 18 115/74 (88) 94 95.5 Intake and Output 11/26/17 11/27/17 19:00 07:00 Intake Total 1300 ml 2390 ml Output Total 1350 ml 1400 ml Balance -50 ml 990 ml Intake Oral 0 ml Free Water 300 ml IV Total 1210 ml 1640 ml Tube Feeding 90 ml 450 ml Output Urine Total 1350 ml 1400 ml # Bowel Movements 1 Laboratory Tests Test 11/27/17 04:00 White Blood Count 8.4 K/UL (4.8-10.8) Red Blood Count 2.87 M/UL (4.20-5.40) L Hemoglobin 8.2 G/DL (12.0-16.0) L Hematocrit 25.9 % (37.0-47.0) L Mean Corpuscular Volume 90 FL (80-99) Mean Corpuscular Hemoglobin 28.6 PG (27.0-31.0) Mean Corpuscular Hemoglobin Concent 31.7 G/DL (32.0-36.0) L Red Cell Distribution Width 15.6 % (11.6-14.8) H Platelet Count 185 K/UL (150-450) Mean Platelet Volume 7.3 FL (6.5-10.1) Neutrophils (%) (Auto) 72.8 % (45.0-75.0) Lymphocytes (%) (Auto) 17.9 % (20.0-45.0) L Monocytes (%) (Auto) 5.7 % (1.0-10.0) Eosinophils (%) (Auto) 2.6 % (0.0-3.0) Basophils (%) (Auto) 1.0 % (0.0-2.0) Sodium Level 143 MMOL/L (136-145) Potassium Level 4.5 MMOL/L (3.5-5.1) Chloride Level 109 MMOL/L (98-107) H Carbon Dioxide Level 30 MMOL/L (21-32) Anion Gap 4 mmol/L (5-15) L Blood Urea Nitrogen 28 mg/dL (7-18) H Creatinine 2.1 MG/DL (0.55-1.30) H Estimat Glomerular Filtration Rate 24.6 mL/min (>60) Glucose Level 104 MG/DL (74-106) Calcium Level 8.9 MG/DL (8.5-10.1) Hepatitis A IgM Antibody Pending Hepatitis B Surface Antigen Pending Hepatitis B Core IgM Antibody Pending Hepatitis C Antibody Pending HIV (1&2) Antibody Rapid Negative (NEGATIVE) Height (Feet): 5 Height (Inches): 2.00 Weight (Pounds): 132 General Appearance: no apparent distress Cardiovascular: normal rate Respiratory/Chest: normal breath sounds, no respiratory distress Abdominal Exam: soft, GT site - c/d/i Olivia Lubin NP Nov 27, 2017 10:28
[2017-11-27 12:30] VITALS: BP 101/43
--- NOTE | 2017-11-27 14:17 | Infectious Diseases Prog Note ---
Assessment/Plan Problems: (1) Catheter-associated urinary tract infection Assessment & Plan: with nahed spp , recommend to change suprapubic catheter since it is colonized with yeast, will continue fluconazole for 14 days total (2) Altered mental state Assessment & Plan: back to the baseline , neurology is following, head CT no acute pathology (3) Acute pyelonephritis Assessment & Plan: with MDR Providencia stuartii, and MRSA , suspect due to right ureter stent obstruction, S/P vancomycin to cover for MRSA , and ertapenem for MDR Providencia stuartii for two weeks total , urology eval is in progress , may need stent removal . (4) Hydronephrosis of right kidney Assessment & Plan: suspect ureter stent malfunction , urology eval is in progress, may need stent removal (5) Severe sepsis Assessment & Plan: with staph simulans , most likely contamination , grew from one set only. S/P vancomycin for two weeks for MRSA pyelonephritis, repeated blood culture is negative (6) Renal failure Assessment & Plan: continue aggressive hydration , monitor renal function, avoid nephrotoxics (7) Colonization with VRE (vancomycin-resistant enterococcus) Assessment & Plan: keep in contact isolation (8) Hypotension Assessment & Plan: doubt due to sepsis , suspect dehydration . cortisol level looks ok . repeated blood culture is negative . continue hydration (9) Diarrhea Assessment & Plan: not due to C diff with negative toxin , continue aggressive hydration Subjective ROS Limited/Unobtainable: Yes Allergies: Coded Allergies: CEFEPIME (Unverified Allergy, Unknown, 11/09/17) Subjective she was lying in bed, more awake and responsive to calling her name , she had PEG tube placement yesterday , nonverbal , off BIPAP machine , a febrile Objective Vital Signs Last 24 Hour Vital Signs Date Time Temp Pulse Resp B/P (MAP) Pulse Ox O2 Delivery O2 Flow Rate FiO2 11/27/17 12:30 97.0 73 18 101/43 (62) 100 97.0 11/27/17 12:00 Nasal Cannula 3.0 11/27/17 08:53 64 11/27/17 08:15 Nasal Cannula 3.0 11/27/17 08:00 96.8 83 20 87/61 (70) 99 96.8 11/27/17 07:01 Bi-pap 40 11/27/17 07:01 88 23 100 Full Face 45 11/27/17 07:00 100 Bi-pap 45 11/27/17 05:04 90 24 95 Full Face 45 11/27/17 04:00 Nasal Cannula 3.0 11/27/17 04:00 98.4 81 20 119/84 (96) 100 98.4 11/27/17 04:00 84 11/27/17 03:30 94 27 96 Full Face 45 11/27/17 00:31 93 27 92 Facial 45 11/27/17 00:00 98.2 75 18 114/79 (91) 100 98.2 11/27/17 00:00 Nasal Cannula 3.0 11/27/17 00:00 98 11/26/17 23:21 102 39 94 Facial 45 11/26/17 22:00 110 45 93 Facial 45 11/26/17 20:00 97.8 69 20 118/72 (87) 99 97.8 11/26/17 20:00 Nasal Cannula 3.0 11/26/17 20:00 90 11/26/17 19:00 Nasal Cannula 2.0 28 11/26/17 19:00 92 Nasal Cannula 2.0 28 11/26/17 16:00 96.0 65 22 108/57 (74) 98 96.0 11/26/17 16:00 63 11/26/17 16:00 Nasal Cannula 3.0 11/26/17 14:16 208.6 61 18 99 Height (Feet): 5 Height (Inches): 2.00 Weight (Pounds): 132 General Appearance: WD/WN, no acute distress HEENT: normocephalic, atraumatic, anicteric, mucous membranes moist, pharynx normal, supple, no JVD Respiratory/Chest: chest wall non-tender, no respiratory distress, no accessory muscle use, decreased breath sounds, crackles/rales Cardiovascular: normal peripheral pulses, normal rate, regular rhythm, no gallop/murmur, no JVD Abdomen: normal bowel sounds, soft, non tender, no organomegaly, non distended , no mass, no scars Extremities: no cyanosis, no clubbing Skin: no rash, no lesions Neurologic/Psychiatric: alert, responsive Laboratory Tests Test 11/27/17 04:00 White Blood Count 8.4 K/UL (4.8-10.8) Red Blood Count 2.87 M/UL (4.20-5.40) L Hemoglobin 8.2 G/DL (12.0-16.0) L Hematocrit 25.9 % (37.0-47.0) L Mean Corpuscular Volume 90 FL (80-99) Mean Corpuscular Hemoglobin 28.6 PG (27.0-31.0) Mean Corpuscular Hemoglobin Concent 31.7 G/DL (32.0-36.0) L Red Cell Distribution Width 15.6 % (11.6-14.8) H Platelet Count 185 K/UL (150-450) Mean Platelet Volume 7.3 FL (6.5-10.1) Neutrophils (%) (Auto) 72.8 % (45.0-75.0) Lymphocytes (%) (Auto) 17.9 % (20.0-45.0) L Monocytes (%) (Auto) 5.7 % (1.0-10.0) Eosinophils (%) (Auto) 2.6 % (0.0-3.0) Basophils (%) (Auto) 1.0 % (0.0-2.0) Sodium Level 143 MMOL/L (136-145) Potassium Level 4.5 MMOL/L (3.5-5.1) Chloride Level 109 MMOL/L (98-107) H Carbon Dioxide Level 30 MMOL/L (21-32) Anion Gap 4 mmol/L (5-15) L Blood Urea Nitrogen 28 mg/dL (7-18) H Creatinine 2.1 MG/DL (0.55-1.30) H Estimat Glomerular Filtration Rate 24.6 mL/min (>60) Glucose Level 104 MG/DL (74-106) Calcium Level 8.9 MG/DL (8.5-10.1) Hepatitis A IgM Antibody Pending Hepatitis B Surface Antigen Pending Hepatitis B Core IgM Antibody Pending Hepatitis C Antibody Pending HIV (1&2) Antibody Rapid Negative (NEGATIVE) Current Medications Medications (Trade) Dose Ordered Sig/Tay Route PRN Reason Start Time Stop Time Status Last Admin Dose Admin Acetaminophen (Tylenol) 650 mg Q6H PRN ORAL Mild Pain/Temp > 101 11/09/17 21:30 12/09/17 21:29 Fluconazole (Diflucan) 200 mg DAILY ORAL 11/25/17 14:00 12/05/17 13:59 11/27/17 09:56 Folic Acid (Folate) 2 mg DAILY NG 11/22/17 09:00 12/20/17 20:59 11/27/17 09:57 Heparin Sodium (Porcine) (Heparin 5000 units/ml) 5,000 units EVERY 12 HOURS SUBQ 11/10/17 09:00 12/10/17 08:59 11/27/17 09:55 Lansoprazole (Prevacid) 30 mg DAILY NG 11/22/17 09:00 12/22/17 08:59 11/27/17 09:56 Levetiracetam 1500 mg/Dextrose 110 ml @ 440 mls/hr Q12HR IV 11/25/17 21:00 12/25/17 20:59 11/27/17 10:04 Midodrine (Pro-Amatine) 10 mg THREE TIMES A DAY GT 11/27/17 09:00 12/20/17 17:59 11/27/17 13:56 Ondansetron HCl (Zofran) 4 mg Q4H PRN IVP Nausea & Vomiting 11/09/17 21:30 12/09/17 21:29 Sennosides (Senokot) 1 tab DAILY PRN ORAL Constipation 11/09/17 21:30 12/09/17 21:29 Kortney Quiñones M.D. Nov 27, 2017 14:17
--- NOTE | 2017-11-27 15:32 | Pulmonology Progress Note ---
Assessment/Plan Assessment/Plan Pulmonary Progress Note Assessment/Plan ASSESSMENT: The patient is a 52-year-old shelter resident with history of dementia, traumatic brain injury, recurrent staghorn calculi, recurrent urinary tract infection, suprapubic catheter, prior trach, seizure disorder, nonverbal at baseline, presenting initially for desaturation, but now is stable respiratory dynamics, but concerned for sepsis and profound dehydration with acute kidney injury, anion gap, metabolic acidosis, lactic acidosis, and hemoconcentration all likely secondary to a source. PROBLEM LIST: 1. SIRS/sepsis. 2. Shock, likely septic. 3. Profound dehydration. 4. Hypernatremia, with an initial sodium of 177. 5. Anion gap metabolic acidosis, lactic acidosis. 6. Acute kidney injury, likely on chronic kidney disease. 7. Hypercalcemia. 8. Urinary tract infection. 9. History of traumatic brain injury, dementia, and seizure disorder. 10. History of prior tracheostomy, status post takedown. 11. History of staghorn renal calculi with multiple UTIs, status post suprapubic catheter placement. 12. [facility] resident. 13. Nonverbal at baseline. 14. Bed-bound. 15. Full Code. TREATMENT PLAN: 1. IVF per renal, continue midodrine, replete free water 2. S/P NGT, OCTO PEG, will need 2 physician consent per ETHICS 3. PRN O2, PRN HHN's 4. Clinda per ID 5. F/U recs 6. Monitor MS, F/U neuro recs 7. Heparin subcutaneous for DVT prophylaxis. 8. The patient is a Full Code, POLST reviewed by myself, we continue to discuss goals of care further ---> MULTIPLE MESSAGES LEFT FOR SON LUCÍA, NO CALL BACK , BIOETHICS EVAL NOTED, PALLIATIVE CARE CONSULT APPRECIATED, FAMILY MEETING SHOULD BE ARRANGED Subjective Allergies: Coded Allergies: CEFEPIME (Unverified Allergy, Unknown, 11/09/17) Subjective Non-verbal, off BiPAP, O2 needs stable, no change in secretions, weak cough, marcus NGTF's Hb 7.5, repeat 7.8, OCTO endoscopy and EGD Objective Last 24 Hour Vital Signs Date Time Temp Pulse Resp B/P (MAP) Pulse Ox O2 Delivery O2 Flow Rate FiO2 11/26/17 12:00 Nasal Cannula 3.0 11/26/17 12:00 95.5 71 18 115/74 (88) 94 95.5 11/26/17 10:01 57 11/26/17 08:00 Nasal Cannula 3.0 11/26/17 08:00 96.0 72 16 107/72 (84) 99 96.0 11/26/17 07:00 Nasal Cannula 2.0 28 11/26/17 07:00 100 Nasal Cannula 2.0 28 11/26/17 05:20 69 18 100 11/26/17 04:00 97.8 74 16 105/68 (80) 100 97.8 11/26/17 04:00 Nasal Cannula 3.0 11/26/17 04:00 35 11/26/17 04:00 54 11/26/17 03:17 55 18 100 Facial 35 11/26/17 01:15 61 18 100 Facial 35 11/26/17 00:00 Nasal Cannula 3.0 11/26/17 00:00 80 11/26/17 00:00 35 11/26/17 00:00 97.9 81 18 101/69 (80) 100 97.9 11/25/17 23:00 61 18 100 Facial 35 11/25/17 22:15 Full Face 11/25/17 22:00 66 18 100 Facial 35 11/25/17 22:00 35 11/25/17 20:00 Nasal Cannula 3.0 11/25/17 20:00 97.8 75 16 96/67 (77) 100 97.8 11/25/17 20:00 64 11/25/17 20:00 3.0 11/25/17 18:35 100 Nasal Cannula 2.0 28 11/25/17 18:35 Nasal Cannula 2.0 28 11/25/17 16:00 97.5 78 18 98/56 (70) 100 97.5 11/25/17 16:00 Nasal Cannula 3.0 11/25/17 15:54 68 Intake and Output 11/25/17 11/26/17 19:00 07:00 Intake Total 2250 ml 1938 ml Output Total 1300 ml 1300 ml Balance 950 ml 638 ml Free Water 200 ml 50 ml IV Total 1500 ml 1638 ml Tube Feeding 550 ml 250 ml Output Urine Total 1300 ml 1300 ml # Bowel Movements 1 1 General Appearance: cachetic, other - non-verbal HEENT: normocephalic, atraumatic, anicteric, mucous membranes moist Respiratory/Chest: rhonchi Cardiovascular: normal peripheral pulses, normal rate, regular rhythm Abdomen: normal bowel sounds, soft, non tender, no organomegaly, non distended , other - SPC Extremities: no cyanosis, no clubbing, no edema, other - contracted Laboratory Tests 11/26/17 05:42: White Blood Count 6.6, Red Blood Count 2.65L, Hemoglobin 7.5L, Hematocrit 23.9L , Mean Corpuscular Volume 90, Mean Corpuscular Hemoglobin 28.2, Mean Corpuscular Hemoglobin Concent 31.3L, Red Cell Distribution Width 15.6H, Platelet Count 145L, Mean Platelet Volume 7.2, Neutrophils (%) (Auto) , Lymphocytes (%) (Auto) , Monocytes (%) (Auto) , Eosinophils (%) (Auto) , Basophils (%) (Auto) , Differential Total Cells Counted 100, Neutrophils % ( Manual) 65, Lymphocytes % (Manual) 25, Monocytes % (Manual) 4, Eosinophils % ( Manual) 4H, Basophils % (Manual) 0, Band Neutrophils 2, Platelet Estimate Adequate, Platelet Morphology Normal, Hypochromasia 1+, Anisocytosis 1+, Sodium Level 146H, Potassium Level 4.2, Chloride Level 112H, Carbon Dioxide Level 29, Anion Gap 5, Blood Urea Nitrogen 30H, Creatinine 2.0H, Estimat Glomerular Filtration Rate 26.0, Glucose Level 104, Calcium Level 8.9 11/26/17 09:55: White Blood Count 6.2, Red Blood Count 2.76L, Hemoglobin 7.8L, Hematocrit 24.9L , Mean Corpuscular Volume 90, Mean Corpuscular Hemoglobin 28.3, Mean Corpuscular Hemoglobin Concent 31.3L, Red Cell Distribution Width 15.5H, Platelet Count 135L, Mean Platelet Volume 7.1, Neutrophils (%) (Auto) , Lymphocytes (%) (Auto) , Monocytes (%) (Auto) , Eosinophils (%) (Auto) , Basophils (%) (Auto) , Differential Total Cells Counted 100, Neutrophils % ( Manual) 66, Lymphocytes % (Manual) 29, Monocytes % (Manual) 3, Eosinophils % ( Manual) 2, Basophils % (Manual) 0, Band Neutrophils 0, Platelet Estimate DecreasedL, Platelet Morphology Normal, Hypochromasia 1+, Anisocytosis 1+, Prothrombin Time 10.0, Prothromb Time International Ratio 0.9, Activated Partial Thromboplast Time 38H Current Medications Medications (Trade) Dose Ordered Sig/Tay Route PRN Reason Start Time Stop Time Status Last Admin Dose Admin Acetaminophen (Tylenol) 650 mg Q6H PRN ORAL Mild Pain/Temp > 101 11/09/17 21:30 12/09/17 21:29 Albumin Human 500 ml @ 0 mls/hr Q0M IV 11/21/17 15:00 12/21/17 14:59 Clindamycin HCl/ Dextrose 50 ml @ 100 mls/hr ONCE IV 11/26/17 11:30 11/26/17 13:00 Dextrose 1,000 ml @ 100 mls/hr Q10H IV 11/22/17 09:10 12/22/17 09:09 11/26/17 02:02 Fluconazole (Diflucan) 200 mg DAILY ORAL 11/25/17 14:00 12/05/17 13:59 11/26/17 08:32 Folic Acid (Folate) 2 mg DAILY NG 11/22/17 09:00 12/20/17 20:59 11/26/17 08:32 Heparin Sodium (Porcine) (Heparin 5000 units/ml) 5,000 units EVERY 12 HOURS SUBQ 11/10/17 09:00 12/10/17 08:59 11/25/17 08:25 Lansoprazole (Prevacid) 30 mg DAILY NG 11/22/17 09:00 12/22/17 08:59 11/26/17 08:32 Levetiracetam 1500 mg/Dextrose 110 ml @ 440 mls/hr Q12HR IV 11/25/17 21:00 12/25/17 20:59 11/26/17 08:36 Midodrine (Pro-Amatine) 10 mg THREE TIMES A DAY ORAL 11/20/17 18:00 12/20/17 17:59 11/26/17 08:33 Ondansetron HCl (Zofran) 4 mg Q4H PRN IVP Nausea & Vomiting 11/09/17 21:30 12/09/17 21:29 Sennosides (Senokot) 1 tab DAILY PRN ORAL Constipation 11/09/17 21:30 12/09/17 21:29 Subjective ROS Limited/Unobtainable: No Allergies: Coded Allergies: CEFEPIME (Unverified Allergy, Unknown, 11/09/17) Objective Last 24 Hour Vital Signs Date Time Temp Pulse Resp B/P (MAP) Pulse Ox O2 Delivery O2 Flow Rate FiO2 11/27/17 12:30 97.0 73 18 101/43 (62) 100 97.0 11/27/17 12:00 Nasal Cannula 3.0 11/27/17 08:53 64 11/27/17 08:15 Nasal Cannula 3.0 11/27/17 08:00 96.8 83 20 87/61 (70) 99 96.8 11/27/17 07:01 Bi-pap 40 11/27/17 07:01 88 23 100 Full Face 45 11/27/17 07:00 100 Bi-pap 45 11/27/17 05:04 90 24 95 Full Face 45 11/27/17 04:00 Nasal Cannula 3.0 11/27/17 04:00 98.4 81 20 119/84 (96) 100 98.4 11/27/17 04:00 84 11/27/17 03:30 94 27 96 Full Face 45 11/27/17 00:31 93 27 92 Facial 45 11/27/17 00:00 98.2 75 18 114/79 (91) 100 98.2 11/27/17 00:00 Nasal Cannula 3.0 11/27/17 00:00 98 11/26/17 23:21 102 39 94 Facial 45 11/26/17 22:00 110 45 93 Facial 45 11/26/17 20:00 97.8 69 20 118/72 (87) 99 97.8 11/26/17 20:00 Nasal Cannula 3.0 11/26/17 20:00 90 11/26/17 19:00 Nasal Cannula 2.0 28 11/26/17 19:00 92 Nasal Cannula 2.0 28 11/26/17 16:00 96.0 65 22 108/57 (74) 98 96.0 11/26/17 16:00 63 11/26/17 16:00 Nasal Cannula 3.0 Intake and Output 11/26/17 11/27/17 19:00 07:00 Intake Total 1300 ml 2390 ml Output Total 1350 ml 1400 ml Balance -50 ml 990 ml Intake Oral 0 ml Free Water 300 ml IV Total 1210 ml 1640 ml Tube Feeding 90 ml 450 ml Output Urine Total 1350 ml 1400 ml # Bowel Movements 1 Laboratory Tests 11/27/17 04:00: White Blood Count 8.4, Red Blood Count 2.87L, Hemoglobin 8.2L, Hematocrit 25.9L , Mean Corpuscular Volume 90, Mean Corpuscular Hemoglobin 28.6, Mean Corpuscular Hemoglobin Concent 31.7L, Red Cell Distribution Width 15.6H, Platelet Count 185, Mean Platelet Volume 7.3, Neutrophils (%) (Auto) 72.8, Lymphocytes (%) (Auto) 17.9L, Monocytes (%) (Auto) 5.7, Eosinophils (%) (Auto) 2.6, Basophils (%) (Auto) 1.0, Sodium Level 143, Potassium Level 4.5, Chloride Level 109H, Carbon Dioxide Level 30, Anion Gap 4L, Blood Urea Nitrogen 28H, Creatinine 2.1H, Estimat Glomerular Filtration Rate 24.6, Glucose Level 104, Calcium Level 8.9, Hepatitis A IgM Antibody [Pending], Hepatitis B Surface Antigen [Pending], Hepatitis B Core IgM Antibody [Pending], Hepatitis C Antibody [Pending], HIV (1&2) Antibody Rapid Negative Current Medications Medications (Trade) Dose Ordered Sig/Tay Route PRN Reason Start Time Stop Time Status Last Admin Dose Admin Acetaminophen (Tylenol) 650 mg Q6H PRN ORAL Mild Pain/Temp > 101 11/09/17 21:30 12/09/17 21:29 Fluconazole (Diflucan) 200 mg DAILY ORAL 11/25/17 14:00 12/05/17 13:59 11/27/17 09:56 Folic Acid (Folate) 2 mg DAILY NG 11/22/17 09:00 12/20/17 20:59 11/27/17 09:57 Heparin Sodium (Porcine) (Heparin 5000 units/ml) 5,000 units EVERY 12 HOURS SUBQ 11/10/17 09:00 12/10/17 08:59 11/27/17 09:55 Lansoprazole (Prevacid) 30 mg DAILY NG 11/22/17 09:00 12/22/17 08:59 11/27/17 09:56 Levetiracetam 1500 mg/Dextrose 110 ml @ 440 mls/hr Q12HR IV 11/25/17 21:00 12/25/17 20:59 11/27/17 10:04 Midodrine (Pro-Amatine) 10 mg THREE TIMES A DAY GT 11/27/17 09:00 12/20/17 17:59 11/27/17 13:56 Ondansetron HCl (Zofran) 4 mg Q4H PRN IVP Nausea & Vomiting 11/09/17 21:30 12/09/17 21:29 Sennosides (Senokot) 1 tab DAILY PRN ORAL Constipation 11/09/17 21:30 12/09/17 21:29 Lance Lino MD Nov 27, 2017 15:32
[2017-11-27 16:00] VITALS: BP 99/59
[2017-11-27] MEDS ORDERED: NS 275ml ONE (19:50)
[2017-11-27 20:00] VITALS: BP 92/65
--- NOTE | 2017-11-27 21:52 | Neurology Progress Note ---
Interim History Interim History Interim History Ms. Guaman can be aroused with vocal stimulation. She is able to say a few words that can be understood. She is awake and minimally more alert. She is able to count fingers in her right field. She is cognitively impoverished. She is motorically challenged. She has exhibited no clinical seizures. She is being fed through her G-Tube. Review of Systems Neuro Review of Systems Unable to obtain. Objective Physical Exam Last Vital Signs Date Time Temp Pulse Resp B/P (MAP) Pulse Ox O2 Delivery O2 Flow Rate FiO2 11/27/17 20:00 Nasal Cannula 3.0 11/27/17 20:00 97.8 69 18 92/65 (74) 99 97.8 11/27/17 19:26 32 Laboratory Tests Test 11/27/17 04:00 White Blood Count 8.4 K/UL (4.8-10.8) Red Blood Count 2.87 M/UL (4.20-5.40) L Hemoglobin 8.2 G/DL (12.0-16.0) L Hematocrit 25.9 % (37.0-47.0) L Mean Corpuscular Volume 90 FL (80-99) Mean Corpuscular Hemoglobin 28.6 PG (27.0-31.0) Mean Corpuscular Hemoglobin Concent 31.7 G/DL (32.0-36.0) L Red Cell Distribution Width 15.6 % (11.6-14.8) H Platelet Count 185 K/UL (150-450) Mean Platelet Volume 7.3 FL (6.5-10.1) Neutrophils (%) (Auto) 72.8 % (45.0-75.0) Lymphocytes (%) (Auto) 17.9 % (20.0-45.0) L Monocytes (%) (Auto) 5.7 % (1.0-10.0) Eosinophils (%) (Auto) 2.6 % (0.0-3.0) Basophils (%) (Auto) 1.0 % (0.0-2.0) Sodium Level 143 MMOL/L (136-145) Potassium Level 4.5 MMOL/L (3.5-5.1) Chloride Level 109 MMOL/L (98-107) H Carbon Dioxide Level 30 MMOL/L (21-32) Anion Gap 4 mmol/L (5-15) L Blood Urea Nitrogen 28 mg/dL (7-18) H Creatinine 2.1 MG/DL (0.55-1.30) H Estimat Glomerular Filtration Rate 24.6 mL/min (>60) Glucose Level 104 MG/DL (74-106) Calcium Level 8.9 MG/DL (8.5-10.1) Hepatitis A IgM Antibody Pending Hepatitis B Surface Antigen Pending Hepatitis B Core IgM Antibody Pending Hepatitis C Antibody Pending HIV (1&2) Antibody Rapid Negative (NEGATIVE) Neurologic Exam Objective PHYSICAL EXAMINATION: GENERAL: She is a well-developed and well-nourished lady, lying in bed , in no acute distress. HEAD: Normocephalic with right craniectomy defect. EENT: Examination benign. NECK: No neck rigidity was observed. NEUROLOGICAL EXAMINATION: MENTAL STATUS EXAMINATION: She awake and more alert. She was able to say a few words that could be understood. Further mental status testing was impossible. SPEECH: She was able to say a few words that could be understood. LANGUAGE: Could not be tested. CRANIAL NERVE EXAMINATION: II: She did blink to threat. She was able to count fingers in her right field. III, IV & : The eyes were dysconjugate. External ocular movements were present on oculocephalic maneuvers. The pupils were 3 mm in diameter, equal, round, regular, and reactive sluggishly to light. V & VII: Corneal reflexes were present, but brisker on the right than on the left. VIII: She did respond to sounds and had no nystagmus. IX & X: The gag reflex was absent. IX: Sternocleidomastoids and trapezii did function minimally on applying deep painful stimuli. XII: Tongue in the midline. MOTOR SYSTEM: The tone was increased in both lower extremities with spasticity. The tone was relatively normal in the right upper extremity but was diminished in the left upper extremity. Examination of muscle mass revealed wasting of the left upper and lower extremities and in addition a flexion contracture at the elbow. The examination of power was impossible to perform accurately as she did not move her left side at all and moved her right side minimally. SENSORY EXAMINATION: She responded to deep pain on the right side but not the left. REFLEXES: 2+ on the left and 2++ on the right at the biceps, triceps, brachioradialis, and knees, 0 at both ankles. The plantar responses were extensor bilaterally. COORDINATION, STANCE & GAIT: Could not be tested. Impression/Recommendations Diagnostic Impression 1. Ms. Yumiko Guaman is a 52-year-old, lady, of unknown handedness, who does have a past history of severe brain trauma with a right-sided craniectomy and significant right brain encephalomalacia. She also has a history of a seizure disorder that is undefined. She has a left plegia and prior episodes of respiratory failure, urinary tract infections, and multiple episodes of sepsis. She was hospitalized on 11/09/2017 for a urinary tract infection associated with sepsis but her mental state improved with treatment of those conditions. on 11/20/17 there was a sudden decline in her level of arousal. 2. She can be aroused with vocal stimulation. She is able to say a few words that can be understood. She is awake and minimally more alert. She is able to count fingers in her right field. She is cognitively impoverished. She is motorically challenged. She has exhibited no clinical seizures. She is being fed through her G-Tube. 3. On neurological examination at this time, she does demonstrate a right-sided craniectomy. She awake and more alert. She was able to say a few words that can be understood. Further mental status testing was impossible. Language cannot be tested. She does blink to visual threat and counts fingers in her right field. The corneal reflexes are diminished on the left side compared to the right. She has left upper extremity greater than lower extremity contractures and left- sided plegia and significant right-sided hemiparesis. She only responds to deep pain on the right side with minimal withdrawal but not on the left side. The deep tendon reflexes are brisker on the right side compared to the left and she has extensor plantar responses bilaterally. 4. CT scan of the brain without contrast performed on 11/20/2017 revealed a large right convexity craniectomy and extensive underlying temporal and parietal encephalomalacia. There was also encephalomalacia of the right cerebellum. There was a left frontal craniotomy defect with overlying mesh. There was no significant underlying parenchymal abnormality on the left side. She also had right-sided ventriculostomy. No acute pathology was noted. 5. Laboratory data revealed that she was anemic with a hemoglobin of 10.5 G. Her WBC count was 10,000 but she had a left-sided shift with 80% polymorphonuclear leukocytes. The chemistry panel revealed a creatinine elevated to 2.0. The ammonia was minimally elevated at 34. The Vitamin B12 level and TSH were normal. The Folate was minimally low at 3.9. The Urinalysis that was done on 11/09/2017 revealed 3+ leukocyte esterase, 40-60 RBCs and 40-60 WBCs per high-power field. Her latest arterial blood gas revealed a pH of 7.35, pCO2 of 42, and pO2 of 60. 6. The EEG done on 11/21/17 revealed severe generalized cerebral dysfunction and multiple electrographic seizures emanating from the right fronto-central region sometimes lasting al long as 120 seconds. 7. The EEG done on 11/24/17 revealed a continuous electrographic seizure emanating from the right fronto-central area during her entire EEG and severe generalized cerebral dysfunction. 8. The patient's history, neurological examination, and laboratory data and imaging studies are most compatible with worsening of a toxic metabolic encephalopathy and in addition subclinical electrographic seizures emanating from the right fronto-central region. Her mental state has improved significantly today. Recommendations 1. Continue present management. 2. Continue present therapeutic management. 3. Continue aggressive antibiotic treatment. 4. Continue to correct the patient's toxic metabolic imbalances. 5. Continue Keppra 1500 mg IV q 12 hours. 6. Repeat EEG 7. Observe closely. Roseann Barnes M.D., M.S.P.H. ROSEANN BARENS Nov 27, 2017 21:52
[2017-11-28] VITALS: BP 95/71
[2017-11-28 04:00] VITALS: BP 102/65
[2017-11-28 06:00] LABS: ALANINE AMINOTRANSFERASE 35 U/L (12-78); ALBUMIN 2.2 G/DL (3.4-5.0); ALBUMIN/GLOBULIN RATIO 0.4 (1.0-2.7); ALKALINE PHOSPHATASE 240 U/L (46-116); ANION GAP 5 mmol/L (5-15); ASPARTATE AMINO TRANSFERASE 67 U/L (15-37); BILIRUBIN,TOTAL 0.3 MG/DL (0.2-1.0); BLOOD UREA NITROGEN 32 mg/dL (7-18); CALCIUM 9.2 MG/DL (8.5-10.1); CARBON DIOXIDE 30 MMOL/L (21-32); CHLORIDE 112 MMOL/L (98-107); CREATININE 2.1 MG/DL (0.55-1.30); PHOSPHORUS 5.4 MG/DL (2.5-4.9); POTASSIUM 4.9 MMOL/L (3.5-5.1); SODIUM 147 MMOL/L (136-145)
--- NOTE | 2017-11-28 06:36 | General Progress Note ---
Assessment/Plan Assessment/Plan #. Anemia of chronic disease -- workup has been reviewed from before and noted to have high ferritin 1500, other labs consistent with ACD --> monitor and started on folic acid --> hgb goal >7, transfuse prn basis --> remains critically ill, bioethics/hospice services consulted --> pending family meeting, reviewed pulm recs #. Thrombocytopenia plt count 100-150k, monitor if changes, currently in this range --> egd and peg completed 11/26/2017 --> hepatitis and hiv are negative --> us of the abdomen has been ordered --> meds reviewed and on antibiotics at this time --> ok to continue heparin 5k sq tid # Severe brain trauma with a right-sided craniectomy and significant right brain encephalomalacia. She also has a history of a seizure disorder that is undefined. --> appreciate neuro recs # Respiratory failure and now s/p takedown --> appreciate pulm recs # Urinary tract infections, and multiple episodes of sepsis. --> s/p abx treatment and seen by ID # Hydronephrosis r kidney --> may need stent exchange per uro # Dysphagia s/p peg tube Appreciate consultation greatly. Continue to follow. Subjective Constitutional: Reports: no symptoms HEENT: Reports: no symptoms Respiratory: Reports: no symptoms Gastrointestinal/Abdominal: Reports: poor appetite Genitourinary: Reports: no symptoms Neurologic/Psychiatric: Reports: no symptoms Endocrine: Reports: unexplained weight loss Hematologic/Lymphatic: Reports: anemia Allergies: Coded Allergies: CEFEPIME (Unverified Allergy, Unknown, 11/09/17) Subjective gtube feeds ongoing, no events on bipap Objective Last 24 Hour Vital Signs Date Time Temp Pulse Resp B/P (MAP) Pulse Ox O2 Delivery O2 Flow Rate FiO2 11/28/17 05:16 85 17 99 Full Face 45 11/28/17 04:00 85 11/28/17 04:00 Nasal Cannula 3.0 11/28/17 04:00 35 11/28/17 04:00 97.9 73 16 102/65 (77) 100 97.9 11/28/17 03:11 82 16 99 Full Face 45 11/28/17 00:46 64 17 98 Full Face 45 11/28/17 00:00 35 11/28/17 00:00 Nasal Cannula 3.0 11/28/17 00:00 97.5 71 16 95/71 (79) 100 97.5 11/28/17 00:00 66 11/27/17 22:50 63 23 100 Full Face 45 11/27/17 20:00 3.0 11/27/17 20:00 Nasal Cannula 3.0 11/27/17 20:00 97.8 69 18 92/65 (74) 99 97.8 11/27/17 20:00 62 11/27/17 19:26 Nasal Cannula 3.0 32 11/27/17 19:26 96 Nasal Cannula 3.0 32 11/27/17 17:54 58 20 Nasal Cannula 3.0 32 11/27/17 16:15 Nasal Cannula 3.0 11/27/17 16:12 60 11/27/17 16:00 96.6 62 20 99/59 (72) 99 96.6 11/27/17 12:30 97.0 73 18 101/43 (62) 100 97.0 11/27/17 12:00 Nasal Cannula 3.0 11/27/17 08:53 64 11/27/17 08:15 Nasal Cannula 3.0 11/27/17 08:00 96.8 83 20 87/61 (70) 99 96.8 11/27/17 07:01 Bi-pap 40 11/27/17 07:01 88 23 100 Full Face 45 11/27/17 07:00 100 Bi-pap 45 Intake and Output 11/27/17 11/28/17 19:00 07:00 Intake Total 1450 ml 1400 ml Output Total 1400 ml 1200 ml Balance 50 ml 200 ml Free Water 220 ml 300 ml IV Total 540 ml 440 ml Tube Feeding 690 ml 660 ml Output Urine Total 1400 ml 1200 ml # Bowel Movements 1 Laboratory Tests 11/28/17 04:50: Sodium Level 147H, Potassium Level 4.9, Chloride Level 112H, Carbon Dioxide Level 30, Anion Gap 5, Blood Urea Nitrogen 32H, Creatinine 2.1H, Estimat Glomerular Filtration Rate 24.6, Glucose Level 98, Uric Acid 7.0, Calcium Level 9.2, Phosphorus Level 5.4H, Magnesium Level 2.4, Total Bilirubin 0.3, Aspartate Amino Transf (AST/SGOT) 67H, Alanine Aminotransferase (ALT/SGPT) 35, Alkaline Phosphatase 240H, C-Reactive Protein, Quantitative 4.1H, Pro-B-Type Natriuretic Peptide 6254H, Total Protein 7.2, Albumin 2.2L, Globulin 5.0, Albumin/Globulin Ratio 0.4L, Folate [Pending] Height (Feet): 5 Height (Inches): 2.00 Weight (Pounds): 132 General Appearance: no apparent distress EENT: TMs normal Neck: supple Cardiovascular: regular rhythm Respiratory/Chest: lungs clear Abdomen: non tender Extremities: non-tender Edema: 1+ Leg (L), 1+ Leg (R) Edema: mild edema Neurologic: alert Dawit Mcclendon MD Nov 28, 2017 06:36
[2017-11-28 08:00] VITALS: BP 109/69
[2017-11-28] MEDS: Fluconazole 100mg tab ORAL SCH (09:00)
[2017-11-28] MEDS: Midodrine 10mg tab GT SCH ×2 (09:00→13:00)
--- NOTE | 2017-11-28 09:03 | Urology Progress Note ---
Assessment/Plan Assessment/Plan 1. History of hydronephrosis that is chronic. 2. Renal insufficiency, acute on chronic, labile. 3. Hematuria. 4. Pyuria/UTI/colonized. 5. Proteinuria. 6. Urinary retention with chronic suprapubic tube. 7. Neurogenic bladder. sp tube indwelling, last exchanged 11/18 hand irrigated, patent abx as ordered, diflucan monitor renal fxn need old recs indwelling ureteral stents can be addressed by pt's outside urologist once medically more stable Subjective Allergies: Coded Allergies: CEFEPIME (Unverified Allergy, Unknown, 11/09/17) Subjective all noted Objective Last 24 Hour Vital Signs Date Time Temp Pulse Resp B/P (MAP) Pulse Ox O2 Delivery O2 Flow Rate FiO2 11/28/17 07:24 98 Nasal Cannula 3.0 32 11/28/17 07:24 Nasal Cannula 3.0 32 11/28/17 05:16 85 17 99 Full Face 45 11/28/17 04:00 85 11/28/17 04:00 Nasal Cannula 3.0 11/28/17 04:00 35 11/28/17 04:00 97.9 73 16 102/65 (77) 100 97.9 11/28/17 03:11 82 16 99 Full Face 45 11/28/17 00:46 64 17 98 Full Face 45 11/28/17 00:00 35 11/28/17 00:00 Nasal Cannula 3.0 11/28/17 00:00 97.5 71 16 95/71 (79) 100 97.5 11/28/17 00:00 66 11/27/17 22:50 63 23 100 Full Face 45 11/27/17 20:00 3.0 11/27/17 20:00 Nasal Cannula 3.0 11/27/17 20:00 97.8 69 18 92/65 (74) 99 97.8 11/27/17 20:00 62 11/27/17 19:26 Nasal Cannula 3.0 32 11/27/17 19:26 96 Nasal Cannula 3.0 32 11/27/17 17:54 58 20 Nasal Cannula 3.0 32 11/27/17 16:15 Nasal Cannula 3.0 11/27/17 16:12 60 11/27/17 16:00 96.6 62 20 99/59 (72) 99 96.6 11/27/17 12:30 97.0 73 18 101/43 (62) 100 97.0 11/27/17 12:00 Nasal Cannula 3.0 Intake and Output 11/27/17 11/28/17 19:00 07:00 Intake Total 1450 ml 1400 ml Output Total 1400 ml 1200 ml Balance 50 ml 200 ml Free Water 220 ml 300 ml IV Total 540 ml 440 ml Tube Feeding 690 ml 660 ml Output Urine Total 1400 ml 1200 ml # Bowel Movements 1 Microbiology Date/Time Source Procedure Growth Status 11/13/17 15:10 Blood Blood Culture - Final NO GROWTH AFTER 5 DAYS Complete 11/09/17 20:25 Nasal Nares MRSA Culture - Final Staphylococcus Aureus - Mrsa Complete 11/21/17 14:30 Stool Clostridium difficile Toxin Assay - Final Complete 11/20/17 19:14 Urine,Clean Catch Urine Culture - Final Amy Albicans Complete 11/10/17 20:25 Rectum - Final NO CARBAPENEM-RESISTANT ENTEROBACTERI... Complete Current Medications Medications (Trade) Dose Ordered Sig/Tay Route PRN Reason Start Time Stop Time Status Last Admin Dose Admin Acetaminophen (Tylenol) 650 mg Q6H PRN ORAL Mild Pain/Temp > 101 11/09/17 21:30 12/09/17 21:29 Fluconazole (Diflucan) 200 mg DAILY ORAL 11/25/17 14:00 12/05/17 13:59 11/27/17 09:56 Folic Acid (Folate) 2 mg DAILY NG 11/22/17 09:00 12/20/17 20:59 11/27/17 09:57 Heparin Sodium (Porcine) (Heparin 5000 units/ml) 5,000 units EVERY 12 HOURS SUBQ 11/10/17 09:00 12/10/17 08:59 11/27/17 20:51 Lansoprazole (Prevacid) 30 mg DAILY NG 11/22/17 09:00 12/22/17 08:59 11/27/17 09:56 Levetiracetam 1500 mg/Dextrose 110 ml @ 440 mls/hr Q12HR IV 11/25/17 21:00 12/25/17 20:59 11/27/17 21:34 Midodrine (Pro-Amatine) 10 mg THREE TIMES A DAY GT 11/27/17 09:00 12/20/17 17:59 11/27/17 17:30 Ondansetron HCl (Zofran) 4 mg Q4H PRN IVP Nausea & Vomiting 11/09/17 21:30 12/09/17 21:29 Sennosides (Senokot) 1 tab DAILY PRN ORAL Constipation 11/09/17 21:30 12/09/17 21:29 Laboratory Tests 11/28/17 04:50: Sodium Level 147H, Potassium Level 4.9, Chloride Level 112H, Carbon Dioxide Level 30, Anion Gap 5, Blood Urea Nitrogen 32H, Creatinine 2.1H, Estimat Glomerular Filtration Rate 24.6, Glucose Level 98, Uric Acid 7.0, Calcium Level 9.2, Phosphorus Level 5.4H, Magnesium Level 2.4, Total Bilirubin 0.3, Aspartate Amino Transf (AST/SGOT) 67H, Alanine Aminotransferase (ALT/SGPT) 35, Alkaline Phosphatase 240H, C-Reactive Protein, Quantitative 4.1H, Pro-B-Type Natriuretic Peptide 6254H, Total Protein 7.2, Albumin 2.2L, Globulin 5.0, Albumin/Globulin Ratio 0.4L, Folate 30.2 Height (Feet): 5 Height (Inches): 2.00 Weight (Pounds): 132 Objective exam stable WILBER GALINDO Nov 28, 2017 09:03
[2017-11-28] MEDS: Heparin 5000 units/ml inj SUBQ SCH ×2 (09:16→20:30)
[2017-11-28] MEDS: levETIRAcetam 1,500 MG in D5W 95 ML IV SCH (09:19)
[2017-11-28 12:00] VITALS: BP 127/71
--- NOTE | 2017-11-28 12:40 | GI Progress Note ---
Assessment/Plan Problems: (1) Electrolyte imbalance ICD Codes: E87.8 - Other disorders of electrolyte and fluid balance, not elsewhere classified SNOMED: 082899367 (2) Encounter for PEG (percutaneous endoscopic gastrostomy) ICD Codes: Z43.1 - Encounter for attention to gastrostomy SNOMED: 701690335, 488577050 (3) Dehydration ICD Codes: E86.0 - Dehydration SNOMED: 80656646 (4) Dehydration, severe ICD Codes: E86.0 - Dehydration SNOMED: 027107957 Status: doing well, stable Status Narrative Discussed with Dr. Chan. Assessment/Plan s/p PEG GTFs to goal electrolyte correction per Nephro ppi bowel regime fu labs dc planning The patient was seen and examined at bedside and all new and available data was reviewed in the patients chart. I agree with the above findings, impression and plan. (Patient seen earlier today. Signature stamp does not reflect patient encounter time.). - Laith Chan MD Subjective Subjective limited Objective Last 24 Hour Vital Signs Date Time Temp Pulse Resp B/P (MAP) Pulse Ox O2 Delivery O2 Flow Rate FiO2 11/28/17 08:00 Nasal Cannula 3.0 11/28/17 08:00 99 11/28/17 08:00 97.0 78 15 109/69 (82) 98 97.0 11/28/17 07:24 98 Nasal Cannula 3.0 32 11/28/17 07:24 Nasal Cannula 3.0 32 11/28/17 05:16 85 17 99 Full Face 45 11/28/17 04:00 85 11/28/17 04:00 Nasal Cannula 3.0 11/28/17 04:00 35 11/28/17 04:00 97.9 73 16 102/65 (77) 100 97.9 11/28/17 03:11 82 16 99 Full Face 45 11/28/17 00:46 64 17 98 Full Face 45 11/28/17 00:00 35 11/28/17 00:00 Nasal Cannula 3.0 11/28/17 00:00 97.5 71 16 95/71 (79) 100 97.5 11/28/17 00:00 66 11/27/17 22:50 63 23 100 Full Face 45 11/27/17 20:00 3.0 11/27/17 20:00 Nasal Cannula 3.0 11/27/17 20:00 97.8 69 18 92/65 (74) 99 97.8 11/27/17 20:00 62 11/27/17 19:26 Nasal Cannula 3.0 32 11/27/17 19:26 96 Nasal Cannula 3.0 32 11/27/17 17:54 58 20 Nasal Cannula 3.0 32 11/27/17 16:15 Nasal Cannula 3.0 11/27/17 16:12 60 11/27/17 16:00 96.6 62 20 99/59 (72) 99 96.6 Intake and Output 11/27/17 11/28/17 19:00 07:00 Intake Total 1450 ml 1400 ml Output Total 1400 ml 1200 ml Balance 50 ml 200 ml Free Water 220 ml 300 ml IV Total 540 ml 440 ml Tube Feeding 690 ml 660 ml Output Urine Total 1400 ml 1200 ml # Bowel Movements 1 Laboratory Tests Test 11/28/17 04:50 Sodium Level 147 MMOL/L (136-145) H Potassium Level 4.9 MMOL/L (3.5-5.1) Chloride Level 112 MMOL/L (98-107) H Carbon Dioxide Level 30 MMOL/L (21-32) Anion Gap 5 mmol/L (5-15) Blood Urea Nitrogen 32 mg/dL (7-18) H Creatinine 2.1 MG/DL (0.55-1.30) H Estimat Glomerular Filtration Rate 24.6 mL/min (>60) Glucose Level 98 MG/DL (74-106) Uric Acid 7.0 MG/DL (2.6-7.2) Calcium Level 9.2 MG/DL (8.5-10.1) Phosphorus Level 5.4 MG/DL (2.5-4.9) H Magnesium Level 2.4 MG/DL (1.8-2.4) Total Bilirubin 0.3 MG/DL (0.2-1.0) Aspartate Amino Transf (AST/SGOT) 67 U/L (15-37) H Alanine Aminotransferase (ALT/SGPT) 35 U/L (12-78) Alkaline Phosphatase 240 U/L (46-116) H C-Reactive Protein, Quantitative 4.1 mg/dL (0.00-0.90) H Pro-B-Type Natriuretic Peptide 6254 pg/mL (0-125) H Total Protein 7.2 G/DL (6.4-8.2) Albumin 2.2 G/DL (3.4-5.0) L Globulin 5.0 g/dL Albumin/Globulin Ratio 0.4 (1.0-2.7) L Folate 30.2 NG/ML (8.6-58.9) Height (Feet): 5 Height (Inches): 2.00 Weight (Pounds): 132 General Appearance: alert Cardiovascular: normal rate Respiratory/Chest: other - trach dependent Abdominal Exam: GT site - c/d/i Olivia Lubin [employer] Nov 28, 2017 12:40
--- NOTE | 2017-11-28 14:29 | Nephrology Progress Note ---
Assessment/Plan Problem List: (1) Hypotension (2) Acute renal failure (ARF) (3) Dehydration with hypernatremia (4) Severe sepsis (5) Shock (6) Dehydration, severe Assessment Acute kidney injury, likely on chronic kidney disease. Cr 2.1 today Hypernatremia, with an initial sodium of 177. Na lowering Profound dehydration. improving Shock, likely septic. Hypercalcemia. on presentation Urinary tract infection. Has supraPubic cath History of traumatic brain injury, dementia, and seizure disorder. History of staghorn renal calculi with multiple UTIs, status post Plan Has PEG now K supplements as needed DC IV on tube feeding Albumin bolus PRN KCL, Mag , Phos as needed Antibiotics Monitor renal parameters- Avoid Nephrotoxics Subjective ROS Limited/Unobtainable: Yes Objective Objective Last 24 Hour Vital Signs Date Time Temp Pulse Resp B/P (MAP) Pulse Ox O2 Delivery O2 Flow Rate FiO2 11/28/17 12:00 97.7 99 16 127/71 (89) 95 97.7 11/28/17 12:00 Nasal Cannula 3.0 11/28/17 08:00 Nasal Cannula 3.0 11/28/17 08:00 99 11/28/17 08:00 97.0 78 15 109/69 (82) 98 97.0 11/28/17 07:24 98 Nasal Cannula 3.0 32 11/28/17 07:24 Nasal Cannula 3.0 32 11/28/17 05:16 85 17 99 Full Face 45 11/28/17 04:00 85 11/28/17 04:00 Nasal Cannula 3.0 11/28/17 04:00 35 11/28/17 04:00 97.9 73 16 102/65 (77) 100 97.9 11/28/17 03:11 82 16 99 Full Face 45 11/28/17 00:46 64 17 98 Full Face 45 11/28/17 00:00 35 11/28/17 00:00 Nasal Cannula 3.0 11/28/17 00:00 97.5 71 16 95/71 (79) 100 97.5 11/28/17 00:00 66 11/27/17 22:50 63 23 100 Full Face 45 11/27/17 20:00 3.0 11/27/17 20:00 Nasal Cannula 3.0 11/27/17 20:00 97.8 69 18 92/65 (74) 99 97.8 11/27/17 20:00 62 11/27/17 19:26 Nasal Cannula 3.0 32 11/27/17 19:26 96 Nasal Cannula 3.0 32 11/27/17 17:54 58 20 Nasal Cannula 3.0 32 11/27/17 16:15 Nasal Cannula 3.0 11/27/17 16:12 60 11/27/17 16:00 96.6 62 20 99/59 (72) 99 96.6 Intake and Output 11/27/17 11/28/17 19:00 07:00 Intake Total 1450 ml 1400 ml Output Total 1400 ml 1200 ml Balance 50 ml 200 ml Free Water 220 ml 300 ml IV Total 540 ml 440 ml Tube Feeding 690 ml 660 ml Output Urine Total 1400 ml 1200 ml # Bowel Movements 1 Laboratory Tests 11/28/17 04:50: Sodium Level 147H, Potassium Level 4.9, Chloride Level 112H, Carbon Dioxide Level 30, Anion Gap 5, Blood Urea Nitrogen 32H, Creatinine 2.1H, Estimat Glomerular Filtration Rate 24.6, Glucose Level 98, Uric Acid 7.0, Calcium Level 9.2, Phosphorus Level 5.4H, Magnesium Level 2.4, Total Bilirubin 0.3, Aspartate Amino Transf (AST/SGOT) 67H, Alanine Aminotransferase (ALT/SGPT) 35, Alkaline Phosphatase 240H, C-Reactive Protein, Quantitative 4.1H, Pro-B-Type Natriuretic Peptide 6254H, Total Protein 7.2, Albumin 2.2L, Globulin 5.0, Albumin/Globulin Ratio 0.4L, Folate 30.2 Height (Feet): 5 Height (Inches): 2.00 Weight (Pounds): 132 General Appearance: no apparent distress Cardiovascular: tachycardia Respiratory/Chest: decreased breath sounds Abdomen: soft, other - PEG Objective no change Parrish Luo MD Nov 28, 2017 14:29
--- NOTE | 2017-11-28 15:16 | Neurology Progress Note ---
Interim History Interim History Interim History Ms. Guaman can be aroused with vocal stimulation. She is able to say a few words that can be understood. She is awake and minimally more alert. She is able to count fingers in her right field. She is cognitively impoverished. She is motorically challenged. She has exhibited no clinical seizures. She is being fed through her G-Tube. Review of Systems Neuro Review of Systems Unable to obtain. Objective Physical Exam Last Vital Signs Date Time Temp Pulse Resp B/P (MAP) Pulse Ox O2 Delivery O2 Flow Rate FiO2 11/28/17 12:00 97.7 99 16 127/71 (89) 95 97.7 11/28/17 12:00 Nasal Cannula 3.0 11/28/17 07:24 32 Laboratory Tests Test 11/28/17 04:50 Sodium Level 147 MMOL/L (136-145) H Potassium Level 4.9 MMOL/L (3.5-5.1) Chloride Level 112 MMOL/L (98-107) H Carbon Dioxide Level 30 MMOL/L (21-32) Anion Gap 5 mmol/L (5-15) Blood Urea Nitrogen 32 mg/dL (7-18) H Creatinine 2.1 MG/DL (0.55-1.30) H Estimat Glomerular Filtration Rate 24.6 mL/min (>60) Glucose Level 98 MG/DL (74-106) Uric Acid 7.0 MG/DL (2.6-7.2) Calcium Level 9.2 MG/DL (8.5-10.1) Phosphorus Level 5.4 MG/DL (2.5-4.9) H Magnesium Level 2.4 MG/DL (1.8-2.4) Total Bilirubin 0.3 MG/DL (0.2-1.0) Aspartate Amino Transf (AST/SGOT) 67 U/L (15-37) H Alanine Aminotransferase (ALT/SGPT) 35 U/L (12-78) Alkaline Phosphatase 240 U/L (46-116) H C-Reactive Protein, Quantitative 4.1 mg/dL (0.00-0.90) H Pro-B-Type Natriuretic Peptide 6254 pg/mL (0-125) H Total Protein 7.2 G/DL (6.4-8.2) Albumin 2.2 G/DL (3.4-5.0) L Globulin 5.0 g/dL Albumin/Globulin Ratio 0.4 (1.0-2.7) L Folate 30.2 NG/ML (8.6-58.9) Neurologic Exam Objective PHYSICAL EXAMINATION: GENERAL: She is a well-developed and well-nourished lady, lying in bed , in no acute distress. HEAD: Normocephalic with right craniectomy defect. EENT: Examination benign. NECK: No neck rigidity was observed. NEUROLOGICAL EXAMINATION: MENTAL STATUS EXAMINATION: She awake and more alert. She was able to say a few words that could be understood. Further mental status testing was impossible. SPEECH: She was able to say a few words that could be understood. LANGUAGE: Could not be tested. CRANIAL NERVE EXAMINATION: II: She did blink to threat. She was able to count fingers in her right field. III, IV & : The eyes were dysconjugate. External ocular movements were present on oculocephalic maneuvers. The pupils were 3 mm in diameter, equal, round, regular, and reactive sluggishly to light. V & VII: Corneal reflexes were present, but brisker on the right than on the left. VIII: She did respond to sounds and had no nystagmus. IX & X: The gag reflex was absent. IX: Sternocleidomastoids and trapezii did function minimally on applying deep painful stimuli. XII: Tongue in the midline. MOTOR SYSTEM: The tone was increased in both lower extremities with spasticity. The tone was relatively normal in the right upper extremity but was diminished in the left upper extremity. Examination of muscle mass revealed wasting of the left upper and lower extremities and in addition a flexion contracture at the elbow. The examination of power was impossible to perform accurately as she did not move her left side at all and moved her right side minimally. SENSORY EXAMINATION: She responded to deep pain on the right side but not the left. REFLEXES: 2+ on the left and 2++ on the right at the biceps, triceps, brachioradialis, and knees, 0 at both ankles. The plantar responses were extensor bilaterally. COORDINATION, STANCE & GAIT: Could not be tested. Impression/Recommendations Diagnostic Impression 1. Ms. Yumiko Guaman is a 52-year-old, lady, of unknown handedness, who does have a past history of severe brain trauma with a right-sided craniectomy and significant right brain encephalomalacia. She also has a history of a seizure disorder that is undefined. She has a left plegia and prior episodes of respiratory failure, urinary tract infections, and multiple episodes of sepsis. She was hospitalized on 11/09/2017 for a urinary tract infection associated with sepsis but her mental state improved with treatment of those conditions. on 11/20/17 there was a sudden decline in her level of arousal. 2. She can be aroused with vocal stimulation. She is able to say a few words that can be understood. She is awake and minimally more alert. She is able to count fingers in her right field. She is cognitively impoverished. She is motorically challenged. She has exhibited no clinical seizures. She is being fed through her G-Tube. 3. On neurological examination at this time, she does demonstrate a right-sided craniectomy. She awake and more alert. She was able to say a few words that can be understood. Further mental status testing was impossible. Language cannot be tested. She does blink to visual threat and counts fingers in her right field. The corneal reflexes are diminished on the left side compared to the right. She has left upper extremity greater than lower extremity contractures and left- sided plegia and significant right-sided hemiparesis. She only responds to deep pain on the right side with minimal withdrawal but not on the left side. The deep tendon reflexes are brisker on the right side compared to the left and she has extensor plantar responses bilaterally. 4. CT scan of the brain without contrast performed on 11/20/2017 revealed a large right convexity craniectomy and extensive underlying temporal and parietal encephalomalacia. There was also encephalomalacia of the right cerebellum. There was a left frontal craniotomy defect with overlying mesh. There was no significant underlying parenchymal abnormality on the left side. She also had right-sided ventriculostomy. No acute pathology was noted. 5. Laboratory data revealed that she was anemic with a hemoglobin of 10.5 G. Her WBC count was 10,000 but she had a left-sided shift with 80% polymorphonuclear leukocytes. The chemistry panel revealed a creatinine elevated to 2.0. The ammonia was minimally elevated at 34. The Vitamin B12 level and TSH were normal. The Folate was minimally low at 3.9. The Urinalysis that was done on 11/09/2017 revealed 3+ leukocyte esterase, 40-60 RBCs and 40-60 WBCs per high-power field. Her latest arterial blood gas revealed a pH of 7.35, pCO2 of 42, and pO2 of 60. 6. The EEG done on 11/21/17 revealed severe generalized cerebral dysfunction and multiple electrographic seizures emanating from the right fronto-central region sometimes lasting al long as 120 seconds. 7. The EEG done on 11/24/17 revealed a continuous electrographic seizure emanating from the right fronto-central area during her entire EEG and severe generalized cerebral dysfunction. 8. The patient's history, neurological examination, and laboratory data and imaging studies are most compatible with worsening of a toxic metabolic encephalopathy and in addition subclinical electrographic seizures emanating from the right fronto-central region. Her mental state has improved significantly compared to a few days ago but is about the same as yesterday. Recommendations 1. Continue present management. 2. Continue present therapeutic management. 3. Continue aggressive antibiotic treatment. 4. Continue to correct the patient's toxic metabolic imbalances. 5. Continue Keppra 1500 mg IV q 12 hours. 6. Repeat EEG 7. Observe closely. Roseann Ramos M.D., M.S.P.ROSEANN CHRISTIAN Nov 28, 2017 15:16
[2017-11-28 16:00] VITALS: BP 113/71
[2017-11-28 20:00] VITALS: BP 120/86
--- NOTE | 2017-11-28 20:21 | Diagnostic Imaging Report ---
Indication: Abdominal pain, abnormal liver function tests, abnormal renal function tests Technique: Pyle-scale and duplex images of the upper abdomen were obtained. Pulse. Doppler and color Doppler imaging of the portal and hepatic veins Comparison: Abdomen pelvis CT dated 11/09/2017 Findings: Exam is limited due to patient body habitus. Gallbladder not visualized, presumably surgically absent as it is also not visualized on prior CT scan. Owens Common bile duct measures 4 mm in diameter. No intrahepatic biliary ductal dilatation. Liver demonstrates normal echogenicity, no focal abnormality. Portal vein and hepatic veins are patent. Pancreas is unremarkable. Spleen is unremarkable.. 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 Right kidney measures 9.3 cm length. Both kidneys demonstrate normal echogenicity. There is mild bilateral hydronephrosis. This despite the presence of bilateral nephroureteral stents. This is also noted on prior CT scan. No focal abnormality . Non-aneurysmal abdominal aorta . There is questionably trace right pleural effusion. If real, not evident on prior CT Impression: Mild bilateral hydronephrosis, despite presence of a nephroureteral stents. 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
[2017-11-28] MEDS: levETIRAcetam 500mg/5ml Liquid NG SCH (20:29)
--- NOTE | 2017-11-28 21:47 | Infectious Diseases Prog Note ---
Assessment/Plan Problems: (1) Catheter-associated urinary tract infection Assessment & Plan: with nahed spp , recommend to change suprapubic catheter since it is colonized with yeast, will continue fluconazole for 14 days total (2) Acute pyelonephritis Assessment & Plan: with MDR Providencia stuartii, and MRSA , suspect due to right ureter stent obstruction, S/P vancomycin to cover for MRSA , and ertapenem for MDR Providencia stuartii for two weeks total , urology eval is in progress , may need stent removal . (3) Hydronephrosis of right kidney Assessment & Plan: suspect ureter stent malfunction , urology eval is in progress, may need stent removal (4) Renal failure Assessment & Plan: continue aggressive hydration , monitor renal function, avoid nephrotoxics (5) Colonization with VRE (vancomycin-resistant enterococcus) Assessment & Plan: keep in contact isolation (6) Hypotension Assessment & Plan: doubt due to sepsis , suspect dehydration . cortisol level looks ok . repeated blood culture is negative . continue hydration (7) Diarrhea Assessment & Plan: not due to C diff with negative toxin , continue aggressive hydration (8) Acute respiratory failure with hypoxia Assessment & Plan: suspect due to secretions , recommend aggressive suctioning , continue BIPAP as per pulmonary, monitor CXR and ABG Subjective ROS Limited/Unobtainable: Yes Allergies: Coded Allergies: CEFEPIME (Unverified Allergy, Unknown, 11/09/17) Subjective she was lying in bed, had some respiratory distress with secretions , nonverbal , restarted on BIPAP machine , a febrile Objective Vital Signs Last 24 Hour Vital Signs Date Time Temp Pulse Resp B/P (MAP) Pulse Ox O2 Delivery O2 Flow Rate FiO2 11/28/17 21:16 100 22 99 Full Face 45 11/28/17 20:19 85 17 96 Full Face 45 11/28/17 20:18 Bi-pap 45 11/28/17 20:18 94 Nasal Cannula 3.0 32 11/28/17 20:00 96.6 115 28 120/86 (97) 95 96.6 11/28/17 20:00 Nasal Cannula 3.0 11/28/17 20:00 120 11/28/17 16:00 86 11/28/17 16:00 97.4 99 17 113/71 (85) 93 97.4 11/28/17 16:00 Nasal Cannula 3.0 11/28/17 12:00 97.7 99 16 127/71 (89) 95 97.7 11/28/17 12:00 Nasal Cannula 3.0 11/28/17 11:42 105 11/28/17 08:00 Nasal Cannula 3.0 11/28/17 08:00 99 11/28/17 08:00 97.0 78 15 109/69 (82) 98 97.0 11/28/17 07:24 98 Nasal Cannula 3.0 32 11/28/17 07:24 Nasal Cannula 3.0 32 11/28/17 05:16 85 17 99 Full Face 45 11/28/17 04:00 85 11/28/17 04:00 Nasal Cannula 3.0 11/28/17 04:00 35 11/28/17 04:00 97.9 73 16 102/65 (77) 100 97.9 11/28/17 03:11 82 16 99 Full Face 45 11/28/17 00:46 64 17 98 Full Face 45 11/28/17 00:00 35 11/28/17 00:00 Nasal Cannula 3.0 11/28/17 00:00 97.5 71 16 95/71 (79) 100 97.5 11/28/17 00:00 66 11/27/17 22:50 63 23 100 Full Face 45 Height (Feet): 5 Height (Inches): 2.00 Weight (Pounds): 132 General Appearance: WD/WN, other - mild respiratory distress HEENT: normocephalic, atraumatic, anicteric, mucous membranes moist, PERRL, supple, no JVD Respiratory/Chest: normal breath sounds, no respiratory distress, no accessory muscle use, decreased breath sounds, crackles/rales Cardiovascular: normal peripheral pulses, normal rate, regular rhythm, no gallop/murmur, no JVD Abdomen: normal bowel sounds, soft, non tender, no organomegaly, non distended , no mass, no scars Extremities: no cyanosis, no clubbing Skin: no rash, no lesions, no ulcers Neurologic/Psychiatric: alert, unresponsiveness Lymphatic: no neck adenopathy, no groin adenopathy Musculoskeletal: normal muscle bulk, no effusion Laboratory Tests Test 11/28/17 04:50 Sodium Level 147 MMOL/L (136-145) H Potassium Level 4.9 MMOL/L (3.5-5.1) Chloride Level 112 MMOL/L (98-107) H Carbon Dioxide Level 30 MMOL/L (21-32) Anion Gap 5 mmol/L (5-15) Blood Urea Nitrogen 32 mg/dL (7-18) H Creatinine 2.1 MG/DL (0.55-1.30) H Estimat Glomerular Filtration Rate 24.6 mL/min (>60) Glucose Level 98 MG/DL (74-106) Uric Acid 7.0 MG/DL (2.6-7.2) Calcium Level 9.2 MG/DL (8.5-10.1) Phosphorus Level 5.4 MG/DL (2.5-4.9) H Magnesium Level 2.4 MG/DL (1.8-2.4) Total Bilirubin 0.3 MG/DL (0.2-1.0) Aspartate Amino Transf (AST/SGOT) 67 U/L (15-37) H Alanine Aminotransferase (ALT/SGPT) 35 U/L (12-78) Alkaline Phosphatase 240 U/L (46-116) H C-Reactive Protein, Quantitative 4.1 mg/dL (0.00-0.90) H Pro-B-Type Natriuretic Peptide 6254 pg/mL (0-125) H Total Protein 7.2 G/DL (6.4-8.2) Albumin 2.2 G/DL (3.4-5.0) L Globulin 5.0 g/dL Albumin/Globulin Ratio 0.4 (1.0-2.7) L Folate 30.2 NG/ML (8.6-58.9) Current Medications Medications (Trade) Dose Ordered Sig/Tay Route PRN Reason Start Time Stop Time Status Last Admin Dose Admin Acetaminophen (Tylenol) 650 mg Q6H PRN ORAL Mild Pain/Temp > 101 11/09/17 21:30 12/09/17 21:29 Fluconazole (Diflucan) 200 mg DAILY ORAL 11/25/17 14:00 12/05/17 13:59 11/27/17 09:56 Folic Acid (Folate) 2 mg DAILY NG 11/22/17 09:00 12/20/17 20:59 11/27/17 09:57 Heparin Sodium (Porcine) (Heparin 5000 units/ml) 5,000 units EVERY 12 HOURS SUBQ 11/10/17 09:00 12/10/17 08:59 11/28/17 20:30 Lansoprazole (Prevacid) 30 mg DAILY NG 11/22/17 09:00 12/22/17 08:59 11/27/17 09:56 Levetiracetam (Keppra) 1,000 mg Q12HR NG 11/28/17 21:00 12/28/17 20:59 11/28/17 20:29 Midodrine (Pro-Amatine) 5 mg THREE TIMES A DAY GT 11/28/17 18:00 12/20/17 17:59 Ondansetron HCl (Zofran) 4 mg Q4H PRN IVP Nausea & Vomiting 11/09/17 21:30 12/09/17 21:29 Sennosides (Senokot) 1 tab DAILY PRN ORAL Constipation 11/09/17 21:30 12/09/17 21:29 Kortney Quiñones M.D. Nov 28, 2017 21:47
[2017-11-29] VITALS: BP 102/63
[2017-11-29 04:00] VITALS: BP 110/73
[2017-11-29 06:11] LABS: HEMATOCRIT 23.8 % (37.0-47.0); HEMOGLOBIN 7.8 G/DL (12.0-16.0); MEAN CORPUSCULAR VOLUME 91 FL (80-99); PLATELET COUNT 253 K/UL (150-450); RED BLOOD COUNT 2.61 M/UL (4.20-5.40); RED CELL DISTRIBUTION WIDTH 16.1 % (11.6-14.8); WHITE BLOOD COUNT 7.1 K/UL (4.8-10.8)
[2017-11-29 06:17] LABS: ANION GAP 5 mmol/L (5-15); BLOOD UREA NITROGEN 38 mg/dL (7-18); CALCIUM 9.3 MG/DL (8.5-10.1); CARBON DIOXIDE 32 MMOL/L (21-32); CHLORIDE 115 MMOL/L (98-107); CREATININE 2.2 MG/DL (0.55-1.30); POTASSIUM 4.9 MMOL/L (3.5-5.1); SODIUM 152 MMOL/L (136-145)
[2017-11-29 08:00] VITALS: BP 127/84
--- NOTE | 2017-11-29 09:02 | Urology Progress Note ---
Assessment/Plan Assessment/Plan 1. History of hydronephrosis that is chronic. 2. Renal insufficiency, acute on chronic, labile. 3. Hematuria. 4. Pyuria/UTI/colonized. 5. Proteinuria. 6. Urinary retention with chronic suprapubic tube. 7. Neurogenic bladder. sp tube indwelling, last exchanged 11/18 hand irrigated, patent abx as ordered, diflucan monitor renal fxn need old recs indwelling ureteral stents can be addressed by pt's outside urologist once medically more stable Subjective Allergies: Coded Allergies: CEFEPIME (Unverified Allergy, Unknown, 11/09/17) Subjective all noted Objective Last 24 Hour Vital Signs Date Time Temp Pulse Resp B/P (MAP) Pulse Ox O2 Delivery O2 Flow Rate FiO2 11/29/17 08:00 Nasal Cannula 3.0 11/29/17 08:00 96.0 95 18 127/84 (98) 94 96.0 11/29/17 08:00 95 11/29/17 07:20 99 Nasal Cannula 3.0 32 11/29/17 07:20 Nasal Cannula 3.0 32 11/29/17 04:02 81 11/29/17 04:00 96.8 78 16 110/73 (85) 99 96.8 11/29/17 04:00 Nasal Cannula 3.0 11/29/17 02:52 70 16 99 Full Face 30 11/29/17 01:07 87 16 100 Full Face 30 11/29/17 00:00 97.0 80 17 102/63 (76) 100 97.0 11/29/17 00:00 Nasal Cannula 3.0 11/28/17 23:31 83 11/28/17 22:51 89 17 100 Full Face 30 11/28/17 21:16 100 22 99 Full Face 45 11/28/17 20:19 85 17 96 Full Face 45 11/28/17 20:18 Bi-pap 45 11/28/17 20:18 94 Nasal Cannula 3.0 32 11/28/17 20:00 96.6 115 28 120/86 (97) 95 96.6 11/28/17 20:00 Nasal Cannula 3.0 11/28/17 20:00 120 11/28/17 16:00 86 11/28/17 16:00 97.4 99 17 113/71 (85) 93 97.4 11/28/17 16:00 Nasal Cannula 3.0 11/28/17 12:00 97.7 99 16 127/71 (89) 95 97.7 11/28/17 12:00 Nasal Cannula 3.0 11/28/17 11:42 105 Intake and Output 11/28/17 11/29/17 19:00 07:00 Intake Total 110 ml 840 ml Output Total 1200 ml 500 ml Balance -1090 ml 340 ml Free Water 60 ml IV Total 110 ml Tube Feeding 720 ml Other 60 ml Output Urine Total 1200 ml 500 ml # Bowel Movements 2 2 Microbiology Date/Time Source Procedure Growth Status 11/13/17 15:10 Blood Blood Culture - Final NO GROWTH AFTER 5 DAYS Complete 11/09/17 20:25 Nasal Nares MRSA Culture - Final Staphylococcus Aureus - Mrsa Complete 11/21/17 14:30 Stool Clostridium difficile Toxin Assay - Final Complete 11/20/17 19:14 Urine,Clean Catch Urine Culture - Final Amy Albicans Complete 11/10/17 20:25 Rectum - Final NO CARBAPENEM-RESISTANT ENTEROBACTERI... Complete Current Medications Medications (Trade) Dose Ordered Sig/Tay Route PRN Reason Start Time Stop Time Status Last Admin Dose Admin Acetaminophen (Tylenol) 650 mg Q6H PRN ORAL Mild Pain/Temp > 101 11/09/17 21:30 12/09/17 21:29 Fluconazole (Diflucan) 200 mg DAILY ORAL 11/25/17 14:00 12/05/17 13:59 11/27/17 09:56 Folic Acid (Folate) 2 mg DAILY NG 11/22/17 09:00 12/20/17 20:59 11/27/17 09:57 Heparin Sodium (Porcine) (Heparin 5000 units/ml) 5,000 units EVERY 12 HOURS SUBQ 11/10/17 09:00 12/10/17 08:59 11/28/17 20:30 Lansoprazole (Prevacid) 30 mg DAILY NG 11/22/17 09:00 12/22/17 08:59 11/27/17 09:56 Levetiracetam (Keppra) 1,000 mg Q12HR NG 11/28/17 21:00 12/28/17 20:59 11/28/17 20:29 Midodrine (Pro-Amatine) 5 mg THREE TIMES A DAY GT 11/28/17 18:00 12/20/17 17:59 Ondansetron HCl (Zofran) 4 mg Q4H PRN IVP Nausea & Vomiting 11/09/17 21:30 12/09/17 21:29 Sennosides (Senokot) 1 tab DAILY PRN ORAL Constipation 11/09/17 21:30 12/09/17 21:29 Laboratory Tests 11/29/17 04:15: White Blood Count 7.1, Red Blood Count 2.61L, Hemoglobin 7.8L, Hematocrit 23.8L , Mean Corpuscular Volume 91, Mean Corpuscular Hemoglobin 29.9, Mean Corpuscular Hemoglobin Concent 32.8, Red Cell Distribution Width 16.1H, Platelet Count 253, Mean Platelet Volume 6.8, Neutrophils (%) (Auto) , Lymphocytes (%) (Auto) , Monocytes (%) (Auto) , Eosinophils (%) (Auto) , Basophils (%) (Auto) , Differential Total Cells Counted 100, Neutrophils % ( Manual) 75, Lymphocytes % (Manual) 18L, Monocytes % (Manual) 3, Eosinophils % ( Manual) 4H, Basophils % (Manual) 0, Band Neutrophils 0, Platelet Estimate Adequate, Platelet Morphology Normal, Hypochromasia 3+, Anisocytosis 1+, Spherocytes 1+, Sodium Level 152H, Potassium Level 4.9, Chloride Level 115H, Carbon Dioxide Level 32, Anion Gap 5, Blood Urea Nitrogen 38H, Creatinine 2.2H, Estimat Glomerular Filtration Rate 23.2, Glucose Level 105, Calcium Level 9.3 Height (Feet): 5 Height (Inches): 2.00 Weight (Pounds): 132 Objective exam stable WILBER GALINDO Nov 29, 2017 09:02
--- NOTE | 2017-11-29 09:08 | General Progress Note ---
Assessment/Plan Problem List: (1) Hypotension ICD Codes: I95.9 - Hypotension, unspecified SNOMED: 41007841 (2) Encounter for PEG (percutaneous endoscopic gastrostomy) ICD Codes: Z43.1 - Encounter for attention to gastrostomy SNOMED: 363070765, 784039977 (3) Dehydration ICD Codes: E86.0 - Dehydration SNOMED: 45688838 (4) Colonization with VRE (vancomycin-resistant enterococcus) ICD Codes: Z22.338 - Carrier of other streptococcus SNOMED: 684644357 Assessment/Plan (1) Electrolyte imbalance ICD Codes: E87.8 - Other disorders of electrolyte and fluid balance, not elsewhere classified SNOMED: 050150731 (2) Encounter for PEG (percutaneous endoscopic gastrostomy) ICD Codes: Z43.1 - Encounter for attention to gastrostomy SNOMED: 640539896, 566771455 (3) Dehydration ICD Codes: E86.0 - Dehydration SNOMED: 08129104 (4) Dehydration, severe ICD Codes: E86.0 - Dehydration SNOMED: 653172279 Status: doing well, stable Status Narrative Discussed with Dr. Chan. Assessment/Plan s/p PEG GTFs to goal electrolyte correction per Nephro ppi bowel regime fu labs dc planning Subjective ROS Limited/Unobtainable: No Allergies: Coded Allergies: CEFEPIME (Unverified Allergy, Unknown, 11/09/17) Objective Last 24 Hour Vital Signs Date Time Temp Pulse Resp B/P (MAP) Pulse Ox O2 Delivery O2 Flow Rate FiO2 11/29/17 08:00 Nasal Cannula 3.0 11/29/17 08:00 96.0 95 18 127/84 (98) 94 96.0 11/29/17 08:00 95 11/29/17 07:20 99 Nasal Cannula 3.0 32 11/29/17 07:20 Nasal Cannula 3.0 32 11/29/17 04:02 81 11/29/17 04:00 96.8 78 16 110/73 (85) 99 96.8 11/29/17 04:00 Nasal Cannula 3.0 11/29/17 02:52 70 16 99 Full Face 30 11/29/17 01:07 87 16 100 Full Face 30 11/29/17 00:00 97.0 80 17 102/63 (76) 100 97.0 11/29/17 00:00 Nasal Cannula 3.0 11/28/17 23:31 83 11/28/17 22:51 89 17 100 Full Face 30 11/28/17 21:16 100 22 99 Full Face 45 11/28/17 20:19 85 17 96 Full Face 45 11/28/17 20:18 Bi-pap 45 11/28/17 20:18 94 Nasal Cannula 3.0 32 11/28/17 20:00 96.6 115 28 120/86 (97) 95 96.6 11/28/17 20:00 Nasal Cannula 3.0 11/28/17 20:00 120 11/28/17 16:00 86 11/28/17 16:00 97.4 99 17 113/71 (85) 93 97.4 11/28/17 16:00 Nasal Cannula 3.0 11/28/17 12:00 97.7 99 16 127/71 (89) 95 97.7 11/28/17 12:00 Nasal Cannula 3.0 11/28/17 11:42 105 Intake and Output 11/28/17 11/29/17 19:00 07:00 Intake Total 110 ml 840 ml Output Total 1200 ml 500 ml Balance -1090 ml 340 ml Free Water 60 ml IV Total 110 ml Tube Feeding 720 ml Other 60 ml Output Urine Total 1200 ml 500 ml # Bowel Movements 2 2 Laboratory Tests 11/29/17 04:15: White Blood Count 7.1, Red Blood Count 2.61L, Hemoglobin 7.8L, Hematocrit 23.8L , Mean Corpuscular Volume 91, Mean Corpuscular Hemoglobin 29.9, Mean Corpuscular Hemoglobin Concent 32.8, Red Cell Distribution Width 16.1H, Platelet Count 253, Mean Platelet Volume 6.8, Neutrophils (%) (Auto) , Lymphocytes (%) (Auto) , Monocytes (%) (Auto) , Eosinophils (%) (Auto) , Basophils (%) (Auto) , Differential Total Cells Counted 100, Neutrophils % ( Manual) 75, Lymphocytes % (Manual) 18L, Monocytes % (Manual) 3, Eosinophils % ( Manual) 4H, Basophils % (Manual) 0, Band Neutrophils 0, Platelet Estimate Adequate, Platelet Morphology Normal, Hypochromasia 3+, Anisocytosis 1+, Spherocytes 1+, Sodium Level 152H, Potassium Level 4.9, Chloride Level 115H, Carbon Dioxide Level 32, Anion Gap 5, Blood Urea Nitrogen 38H, Creatinine 2.2H, Estimat Glomerular Filtration Rate 23.2, Glucose Level 105, Calcium Level 9.3 Height (Feet): 5 Height (Inches): 2.00 Weight (Pounds): 132 General Appearance: no apparent distress EENT: normal ENT inspection Neck: supple Cardiovascular: normal rate Respiratory/Chest: decreased breath sounds Abdomen: normal bowel sounds, non tender, soft Extremities: non-tender Laith Chan MD Nov 29, 2017 09:08
[2017-11-29] MEDS: Fluconazole 100mg tab ORAL SCH (09:53)
[2017-11-29] MEDS: levETIRAcetam 500mg/5ml Liquid NG SCH ×2 (09:54→21:33)
[2017-11-29] MEDS: Heparin 5000 units/ml inj SUBQ SCH ×2 (09:56→21:35)
[2017-11-29] MEDS ORDERED: NS 275ml ONE (10:56)
[2017-11-29 12:00] VITALS: BP 116/69
--- NOTE | 2017-11-29 13:22 | Infectious Diseases Prog Note ---
Assessment/Plan Problems: (1) Catheter-associated urinary tract infection Assessment & Plan: with nahed spp , recommend to change suprapubic catheter since it is colonized with yeast, will continue fluconazole for 14 days total . EOT 12/06/17 (2) Acute pyelonephritis Assessment & Plan: with MDR Providencia stuartii, and MRSA , suspect due to right ureter stent obstruction, S/P vancomycin to cover for MRSA , and ertapenem for MDR Providencia stuartii for two weeks total , urology eval is in progress , may need stent removal . (3) Hydronephrosis of right kidney Assessment & Plan: suspect ureter stent malfunction , urology eval is in progress, may need stent removal (4) Renal failure Assessment & Plan: continue aggressive hydration , monitor renal function, avoid nephrotoxics (5) Colonization with VRE (vancomycin-resistant enterococcus) Assessment & Plan: keep in contact isolation (6) Hypotension Assessment & Plan: doubt due to sepsis , suspect dehydration . cortisol level looks ok . repeated blood culture is negative . continue hydration (7) Diarrhea Assessment & Plan: not due to C diff with negative toxin , continue aggressive hydration (8) Acute respiratory failure with hypoxia Assessment & Plan: suspect due to secretions , recommend aggressive suctioning , continue BIPAP as per pulmonary, monitor CXR and ABG Subjective ROS Limited/Unobtainable: Yes Allergies: Coded Allergies: CEFEPIME (Unverified Allergy, Unknown, 11/09/17) Subjective she was lying in bed, awake and alert, responsive to verbal commands , no respiratory distress , off BIPAP machine , a febrile Objective Vital Signs Last 24 Hour Vital Signs Date Time Temp Pulse Resp B/P (MAP) Pulse Ox O2 Delivery O2 Flow Rate FiO2 11/29/17 12:00 Nasal Cannula 3.0 11/29/17 12:00 96.8 98 20 116/69 (85) 94 96.8 11/29/17 08:00 Nasal Cannula 3.0 11/29/17 08:00 96.0 95 18 127/84 (98) 94 96.0 11/29/17 08:00 95 11/29/17 07:20 99 Nasal Cannula 3.0 32 11/29/17 07:20 Nasal Cannula 3.0 32 11/29/17 04:02 81 11/29/17 04:00 96.8 78 16 110/73 (85) 99 96.8 9/29/18 04:00 Nasal Cannula 3.0 11/29/17 02:52 70 16 99 Full Face 30 11/29/17 01:07 87 16 100 Full Face 30 11/29/17 00:00 97.0 80 17 102/63 (76) 100 97.0 11/29/17 00:00 Nasal Cannula 3.0 11/28/17 23:31 83 11/28/17 22:51 89 17 100 Full Face 30 11/28/17 21:16 100 22 99 Full Face 45 11/28/17 20:19 85 17 96 Full Face 45 11/28/17 20:18 Bi-pap 45 11/28/17 20:18 94 Nasal Cannula 3.0 32 11/28/17 20:00 96.6 115 28 120/86 (97) 95 96.6 11/28/17 20:00 Nasal Cannula 3.0 11/28/17 20:00 120 11/28/17 16:00 86 11/28/17 16:00 97.4 99 17 113/71 (85) 93 97.4 11/28/17 16:00 Nasal Cannula 3.0 Height (Feet): 5 Height (Inches): 2.00 Weight (Pounds): 132 General Appearance: WD/WN, no acute distress HEENT: normocephalic, atraumatic, anicteric, mucous membranes moist, PERRL, pharynx normal, supple, no JVD Respiratory/Chest: chest wall non-tender, normal breath sounds, no respiratory distress, no accessory muscle use, decreased breath sounds, crackles/rales Cardiovascular: normal peripheral pulses, normal rate, regular rhythm, no gallop/murmur, no JVD Abdomen: normal bowel sounds, soft, non tender, no organomegaly, non distended , no mass, no scars, other - G tube site is ok Extremities: no cyanosis, no clubbing Skin: no rash, no lesions, no ulcers Neurologic/Psychiatric: alert, responsive Lymphatic: no neck adenopathy, no groin adenopathy Musculoskeletal: normal muscle bulk, no effusion Laboratory Tests Test 11/29/17 04:15 White Blood Count 7.1 K/UL (4.8-10.8) Red Blood Count 2.61 M/UL (4.20-5.40) L Hemoglobin 7.8 G/DL (12.0-16.0) L Hematocrit 23.8 % (37.0-47.0) L Mean Corpuscular Volume 91 FL (80-99) Mean Corpuscular Hemoglobin 29.9 PG (27.0-31.0) Mean Corpuscular Hemoglobin Concent 32.8 G/DL (32.0-36.0) Red Cell Distribution Width 16.1 % (11.6-14.8) H Platelet Count 253 K/UL (150-450) Mean Platelet Volume 6.8 FL (6.5-10.1) Neutrophils (%) (Auto) % (45.0-75.0) Lymphocytes (%) (Auto) % (20.0-45.0) Monocytes (%) (Auto) % (1.0-10.0) Eosinophils (%) (Auto) % (0.0-3.0) Basophils (%) (Auto) % (0.0-2.0) Differential Total Cells Counted 100 Neutrophils % (Manual) 75 % (45-75) Lymphocytes % (Manual) 18 % (20-45) L Monocytes % (Manual) 3 % (1-10) Eosinophils % (Manual) 4 % (0-3) H Basophils % (Manual) 0 % (0-2) Band Neutrophils 0 % (0-8) Platelet Estimate Adequate Platelet Morphology Normal Hypochromasia 3+ Anisocytosis 1+ Spherocytes 1+ Sodium Level 152 MMOL/L (136-145) H Potassium Level 4.9 MMOL/L (3.5-5.1) Chloride Level 115 MMOL/L (98-107) H Carbon Dioxide Level 32 MMOL/L (21-32) Anion Gap 5 mmol/L (5-15) Blood Urea Nitrogen 38 mg/dL (7-18) H Creatinine 2.2 MG/DL (0.55-1.30) H Estimat Glomerular Filtration Rate 23.2 mL/min (>60) Glucose Level 105 MG/DL (74-106) Calcium Level 9.3 MG/DL (8.5-10.1) Current Medications Medications (Trade) Dose Ordered Sig/Tay Route PRN Reason Start Time Stop Time Status Last Admin Dose Admin Acetaminophen (Tylenol) 650 mg Q6H PRN ORAL Mild Pain/Temp > 101 11/09/17 21:30 12/09/17 21:29 Dextrose 1,000 ml @ 100 mls/hr Q10H ONCE IV 11/29/17 09:30 11/29/17 19:29 11/29/17 10:29 Fluconazole (Diflucan) 200 mg DAILY ORAL 11/25/17 14:00 12/05/17 13:59 11/29/17 09:53 Folic Acid (Folate) 2 mg DAILY NG 11/22/17 09:00 12/20/17 20:59 11/29/17 09:54 Heparin Sodium (Porcine) (Heparin 5000 units/ml) 5,000 units EVERY 12 HOURS SUBQ 11/10/17 09:00 12/10/17 08:59 11/29/17 09:56 Lansoprazole (Prevacid) 30 mg DAILY NG 11/22/17 09:00 12/22/17 08:59 11/29/17 09:53 Levetiracetam (Keppra) 1,000 mg Q12HR NG 11/28/17 21:00 12/28/17 20:59 11/29/17 09:54 Midodrine (Pro-Amatine) 5 mg THREE TIMES A DAY GT 11/28/17 18:00 12/20/17 17:59 11/29/17 09:53 Ondansetron HCl (Zofran) 4 mg Q4H PRN IVP Nausea & Vomiting 11/09/17 21:30 12/09/17 21:29 Sennosides (Senokot) 1 tab DAILY PRN ORAL Constipation 11/09/17 21:30 12/09/17 21:29 Kortney Quiñones M.D. Nov 29, 2017 13:22
--- NOTE | 2017-11-29 14:07 | General Progress Note ---
Assessment/Plan Assessment/Plan #. Anemia of chronic disease -- workup has been reviewed from before and noted to have high ferritin 1500, other labs consistent with ACD --> monitor and started on folic acid --> hgb goal >7, transfuse prn basis #. 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 She also has a history of a seizure disorder that is undefined. --> appreciate neuro recs # Respiratory failure and now s/p takedown --> appreciate pulm recs # Urinary tract infections, and multiple episodes of sepsis. --> s/p abx treatment and seen by ID # Hydronephrosis r kidney --> may need stent exchange per uro # Dysphagia s/p peg tube # remains critically ill, bioethics/hospice services consulted --> pending family meeting, reviewed pulm recs Appreciate consultation greatly. Continue to follow. Subjective Constitutional: Denies: no symptoms, chills, diaphoresis, fever, malaise, weakness, other Cardiovascular: Denies: no symptoms, chest pain, edema, irregular heart rate, lightheadedness, palpitations, syncope, other Respiratory: Denies: no symptoms, cough, orthopnea, shortness of breath, SOB with excertion, SOB at rest, sputum, stridor, wheezing, other Gastrointestinal/Abdominal: Denies: no symptoms, abdomen distended, abdominal pain, black stools, tarry stools, blood in stool, constipated, diarrhea, difficulty swallowing, nausea, poor appetite, poor fluid intake, rectal bleeding , vomiting, other Genitourinary: Denies: no symptoms, burning, discharge, frequency, flank pain, hematuria, incontinence, pain, urgency, other Neurologic/Psychiatric: Denies: no symptoms, anxiety, depressed, emotional problems, headache, numbness, paresthesia, pre-existing deficit, seizure, tingling, tremors, weakness, other Endocrine: Denies: no symptoms, excessive sweating, flushing, intolerance to cold, intolerance to heat, increased hunger, increased thirst, increased urine, unexplained weight gain, unexplained weight loss, other Hematologic/Lymphatic: Denies: no symptoms, anemia, easy bleeding, easy bruising, other Allergies: Coded Allergies: CEFEPIME (Unverified Allergy, Unknown, 11/09/17) Subjective gtube feeds ongoing, no events currently off bipap Objective Last 24 Hour Vital Signs Date Time Temp Pulse Resp B/P (MAP) Pulse Ox O2 Delivery O2 Flow Rate FiO2 11/29/17 12:00 Nasal Cannula 3.0 11/29/17 12:00 96.8 98 20 116/69 (85) 94 96.8 11/29/17 08:00 Nasal Cannula 3.0 11/29/17 08:00 96.0 95 18 127/84 (98) 94 96.0 11/29/17 08:00 95 11/29/17 07:20 99 Nasal Cannula 3.0 32 11/29/17 07:20 Nasal Cannula 3.0 32 11/29/17 04:02 81 11/29/17 04:00 96.8 78 16 110/73 (85) 99 96.8 11/29/17 04:00 Nasal Cannula 3.0 11/29/17 02:52 70 16 99 Full Face 30 11/29/17 01:07 87 16 100 Full Face 30 11/29/17 00:00 97.0 80 17 102/63 (76) 100 97.0 11/29/17 00:00 Nasal Cannula 3.0 11/28/17 23:31 83 11/28/17 22:51 89 17 100 Full Face 30 11/28/17 21:16 100 22 99 Full Face 45 11/28/17 20:19 85 17 96 Full Face 45 11/28/17 20:18 Bi-pap 45 11/28/17 20:18 94 Nasal Cannula 3.0 32 11/28/17 20:00 96.6 115 28 120/86 (97) 95 96.6 11/28/17 20:00 Nasal Cannula 3.0 11/28/17 20:00 120 11/28/17 16:00 86 11/28/17 16:00 97.4 99 17 113/71 (85) 93 97.4 11/28/17 16:00 Nasal Cannula 3.0 Intake and Output 11/28/17 11/29/17 19:00 07:00 Intake Total 110 ml 840 ml Output Total 1200 ml 500 ml Balance -1090 ml 340 ml Free Water 60 ml IV Total 110 ml Tube Feeding 720 ml Other 60 ml Output Urine Total 1200 ml 500 ml # Bowel Movements 2 2 Laboratory Tests 11/29/17 04:15: White Blood Count 7.1, Red Blood Count 2.61L, Hemoglobin 7.8L, Hematocrit 23.8L , Mean Corpuscular Volume 91, Mean Corpuscular Hemoglobin 29.9, Mean Corpuscular Hemoglobin Concent 32.8, Red Cell Distribution Width 16.1H, Platelet Count 253, Mean Platelet Volume 6.8, Neutrophils (%) (Auto) , Lymphocytes (%) (Auto) , Monocytes (%) (Auto) , Eosinophils (%) (Auto) , Basophils (%) (Auto) , Differential Total Cells Counted 100, Neutrophils % ( Manual) 75, Lymphocytes % (Manual) 18L, Monocytes % (Manual) 3, Eosinophils % ( Manual) 4H, Basophils % (Manual) 0, Band Neutrophils 0, Platelet Estimate Adequate, Platelet Morphology Normal, Hypochromasia 3+, Anisocytosis 1+, Spherocytes 1+, Sodium Level 152H, Potassium Level 4.9, Chloride Level 115H, Carbon Dioxide Level 32, Anion Gap 5, Blood Urea Nitrogen 38H, Creatinine 2.2H, Estimat Glomerular Filtration Rate 23.2, Glucose Level 105, Calcium Level 9.3 Height (Feet): 5 Height (Inches): 2.00 Weight (Pounds): 132 General Appearance: no apparent distress EENT: TMs normal Neck: supple Cardiovascular: regular rhythm Respiratory/Chest: lungs clear Abdomen: non tender, other - peg++ Extremities: normal inspection Edema: 1+ Leg (L), 1+ Leg (R) Neurologic: alert Skin: warm/dry Dawit Mcclendon MD Nov 29, 2017 14:07
--- NOTE | 2017-11-29 14:50 | Neurology Progress Note ---
Interim History Interim History Interim History Ms. Guaman was awake when I went into her room. She waved to me when I entered and exited her room. She is able to say a few words that can be understood. She is awake and minimally more alert. She is able to count fingers in her right field. She is cognitively impoverished. She is motorically challenged. She has exhibited no clinical seizures. She is being fed through her G-Tube. Review of Systems Neuro Review of Systems Unable to obtain. Objective Physical Exam Last Vital Signs Date Time Temp Pulse Resp B/P (MAP) Pulse Ox O2 Delivery O2 Flow Rate FiO2 11/29/17 12:00 Nasal Cannula 3.0 11/29/17 12:00 96.8 98 20 116/69 (85) 94 96.8 11/29/17 07:20 32 Laboratory Tests Test 11/29/17 04:15 White Blood Count 7.1 K/UL (4.8-10.8) Red Blood Count 2.61 M/UL (4.20-5.40) L Hemoglobin 7.8 G/DL (12.0-16.0) L Hematocrit 23.8 % (37.0-47.0) L Mean Corpuscular Volume 91 FL (80-99) Mean Corpuscular Hemoglobin 29.9 PG (27.0-31.0) Mean Corpuscular Hemoglobin Concent 32.8 G/DL (32.0-36.0) Red Cell Distribution Width 16.1 % (11.6-14.8) H Platelet Count 253 K/UL (150-450) Mean Platelet Volume 6.8 FL (6.5-10.1) Neutrophils (%) (Auto) % (45.0-75.0) Lymphocytes (%) (Auto) % (20.0-45.0) Monocytes (%) (Auto) % (1.0-10.0) Eosinophils (%) (Auto) % (0.0-3.0) Basophils (%) (Auto) % (0.0-2.0) Differential Total Cells Counted 100 Neutrophils % (Manual) 75 % (45-75) Lymphocytes % (Manual) 18 % (20-45) L Monocytes % (Manual) 3 % (1-10) Eosinophils % (Manual) 4 % (0-3) H Basophils % (Manual) 0 % (0-2) Band Neutrophils 0 % (0-8) Platelet Estimate Adequate Platelet Morphology Normal Hypochromasia 3+ Anisocytosis 1+ Spherocytes 1+ Sodium Level 152 MMOL/L (136-145) H Potassium Level 4.9 MMOL/L (3.5-5.1) Chloride Level 115 MMOL/L (98-107) H Carbon Dioxide Level 32 MMOL/L (21-32) Anion Gap 5 mmol/L (5-15) Blood Urea Nitrogen 38 mg/dL (7-18) H Creatinine 2.2 MG/DL (0.55-1.30) H Estimat Glomerular Filtration Rate 23.2 mL/min (>60) Glucose Level 105 MG/DL (74-106) Calcium Level 9.3 MG/DL (8.5-10.1) Neurologic Exam Objective PHYSICAL EXAMINATION: GENERAL: She is a well-developed and well-nourished lady, lying in bed , in no acute distress. HEAD: Normocephalic with right craniectomy defect. EENT: Examination benign. NECK: No neck rigidity was observed. NEUROLOGICAL EXAMINATION: MENTAL STATUS EXAMINATION: She awake and more alert. She was able to say a few words that could be understood. Further mental status testing was impossible. SPEECH: She was able to say a few words that could be understood. LANGUAGE: Could not be tested. CRANIAL NERVE EXAMINATION: II: She did blink to threat. She was able to count fingers in her right field. III, IV & : The eyes were dysconjugate. External ocular movements were present on oculocephalic maneuvers. The pupils were 3 mm in diameter, equal, round, regular, and reactive sluggishly to light. V & VII: Corneal reflexes were present, but brisker on the right than on the left. VIII: She did respond to sounds and had no nystagmus. IX & X: The gag reflex was absent. IX: Sternocleidomastoids and trapezii did function minimally on applying deep painful stimuli. XII: Tongue in the midline. MOTOR SYSTEM: The tone was increased in both lower extremities with spasticity. The tone was relatively normal in the right upper extremity but was diminished in the left upper extremity. Examination of muscle mass revealed wasting of the left upper and lower extremities and in addition a flexion contracture at the elbow. The examination of power was impossible to perform accurately as she did not move her left side at all and moved her right side minimally. SENSORY EXAMINATION: She responded to deep pain more so on the right side than the left. REFLEXES: 2+ on the left and 2++ on the right at the biceps, triceps, brachioradialis, and knees, 0 at both ankles. The plantar responses were extensor bilaterally. COORDINATION, STANCE & GAIT: Could not be tested. Impression/Recommendations Diagnostic Impression 1. Ms. Yumiko Guaman is a 52-year-old, lady, of unknown handedness, who does have a past history of severe brain trauma with a right-sided craniectomy and significant right brain encephalomalacia. She also has a history of a seizure disorder that is undefined. She has a left plegia and prior episodes of respiratory failure, urinary tract infections, and multiple episodes of sepsis. She was hospitalized on 11/09/2017 for a urinary tract infection associated with sepsis but her mental state improved with treatment of those conditions. on 11/20/17 there was a sudden decline in her level of arousal. 2. She was awake when I went into her room. She waved to me when I entered and exited her room. She is able to say a few words that can be understood. She is awake and minimally more alert. She is able to count fingers in her right field. She is cognitively impoverished. She is motorically challenged. She has exhibited no clinical seizures. She is being fed through her G-Tube. 3. On neurological examination at this time, she does demonstrate a right-sided craniectomy. She awake and more alert. She was able to say a few words that can be understood. Further mental status testing was impossible. Language cannot be tested. She does blink to visual threat and counts fingers in her right field. The corneal reflexes are diminished on the left side compared to the right. She has left upper extremity greater than lower extremity contractures and left- sided plegia and significant right-sided hemiparesis. She only responds to deep pain on the right side with minimal withdrawal but not on the left side. The deep tendon reflexes are brisker on the right side compared to the left and she has extensor plantar responses bilaterally. 4. CT scan of the brain without contrast performed on 11/20/2017 revealed a large right convexity craniectomy and extensive underlying temporal and parietal encephalomalacia. There was also encephalomalacia of the right cerebellum. There was a left frontal craniotomy defect with overlying mesh. There was no significant underlying parenchymal abnormality on the left side. She also had right-sided ventriculostomy. No acute pathology was noted. 5. Laboratory data revealed that she was anemic with a hemoglobin of 10.5 G. Her WBC count was 10,000 but she had a left-sided shift with 80% polymorphonuclear leukocytes. The chemistry panel revealed a creatinine elevated to 2.0. The ammonia was minimally elevated at 34. The Vitamin B12 level and TSH were normal. The Folate was minimally low at 3.9. The Urinalysis that was done on 11/09/2017 revealed 3+ leukocyte esterase, 40-60 RBCs and 40-60 WBCs per high-power field. Her latest arterial blood gas revealed a pH of 7.35, pCO2 of 42, and pO2 of 60. 6. The EEG done on 11/21/17 revealed severe generalized cerebral dysfunction and multiple electrographic seizures emanating from the right fronto-central region sometimes lasting al long as 120 seconds. 7. The EEG done on 11/24/17 revealed a continuous electrographic seizure emanating from the right fronto-central area during her entire EEG and severe generalized cerebral dysfunction. 8. The patient's history, neurological examination, and laboratory data and imaging studies are most compatible with worsening of a toxic metabolic encephalopathy and in addition subclinical electrographic seizures emanating from the right fronto-central region. Her mental state has improved significantly compared to a few days ago and continues to improve. Recommendations 1. Continue present management. 2. Continue present therapeutic management. 3. Continue aggressive antibiotic treatment. 4. Continue to correct the patient's toxic metabolic imbalances. 5. Continue Keppra 1500 mg IV q 12 hours. 6. Repeat EEG 7. Observe closely. Roseann Ramos M.D., M.S.P.ROSEANN CHRISTIAN Nov 29, 2017 14:50
[2017-11-29 16:00] VITALS: BP 109/70
[2017-11-29 20:00] VITALS: BP 105/70
--- NOTE | 2017-11-29 21:33 | Pulmonology Progress Note ---
Assessment/Plan Assessment/Plan PROBLEM LIST: 1. SIRS/sepsis. 2. Shock, likely septic. 3. Profound dehydration. 4. Hypernatremia, with an initial sodium of 177. 5. Anion gap metabolic acidosis, lactic acidosis. 6. Acute kidney injury, likely on chronic kidney disease. 7. Hypercalcemia. 8. Urinary tract infection. 9. History of traumatic brain injury, dementia, and seizure disorder. 10. History of prior tracheostomy, status post takedown. 11. History of staghorn renal calculi with multiple UTIs, status post suprapubic catheter placement. 12. senior living resident. 13. Nonverbal at baseline. 14. Bed-bound. 15. Full Code. TREATMENT PLAN: 1. IVF per renal, continue midodrine, replete free water 2. S/P NGT, OCTO PEG, will need 2 physician consent per ETHICS 3. PRN O2, PRN HHN's bipap qhs and prn distress 4. Clinda per ID 5. F/U recs 6. Monitor MS, F/U neuro recs 7. Heparin subcutaneous for DVT prophylaxis. 8. The patient is a Full Code, POLST reviewed by myself, we continue to discuss goals of care further ---> FAMILY MEETING SHOULD BE ARRANGED Subjective ROS Limited/Unobtainable: Yes Allergies: Coded Allergies: CEFEPIME (Unverified Allergy, Unknown, 11/09/17) Subjective much more awake than previous exam on bipap no distress positive secretions attempts to communciate no reports of cp nv or bleeding not getting oob. Objective Last 24 Hour Vital Signs Date Time Temp Pulse Resp B/P (MAP) Pulse Ox O2 Delivery O2 Flow Rate FiO2 11/29/17 20:48 88 19 99 Full Face 30 11/29/17 20:00 89 11/29/17 20:00 96.8 87 18 105/70 (82) 95 96.8 11/29/17 20:00 Nasal Cannula 3.0 11/29/17 18:43 Nasal Cannula 3.0 32 11/29/17 18:42 98 Nasal Cannula 3.0 32 11/29/17 16:00 Nasal Cannula 3.0 11/29/17 16:00 86 11/29/17 16:00 96.4 88 18 109/70 (83) 94 96.4 11/29/17 12:00 95 11/29/17 12:00 Nasal Cannula 3.0 11/29/17 12:00 96.8 98 20 116/69 (85) 94 96.8 11/29/17 08:00 Nasal Cannula 3.0 11/29/17 08:00 96.0 95 18 127/84 (98) 94 96.0 11/29/17 08:00 95 11/29/17 07:20 99 Nasal Cannula 3.0 32 11/29/17 07:20 Nasal Cannula 3.0 32 11/29/17 04:02 81 11/29/17 04:00 96.8 78 16 110/73 (85) 99 96.8 11/29/17 04:00 Nasal Cannula 3.0 11/29/17 02:52 70 16 99 Full Face 30 11/29/17 01:07 87 16 100 Full Face 30 11/29/17 00:00 97.0 80 17 102/63 (76) 100 97.0 11/29/17 00:00 Nasal Cannula 3.0 11/28/17 23:31 83 11/28/17 22:51 89 17 100 Full Face 30 Intake and Output 11/28/17 11/29/17 19:00 07:00 Intake Total 110 ml 840 ml Output Total 1200 ml 500 ml Balance -1090 ml 340 ml Free Water 60 ml IV Total 110 ml Tube Feeding 720 ml Other 60 ml Output Urine Total 1200 ml 500 ml # Bowel Movements 2 2 General Appearance: cachetic HEENT: atraumatic, mucous membranes moist Respiratory/Chest: rhonchi Cardiovascular: normal rate, regular rhythm Abdomen: soft, non tender, non distended Extremities: no cyanosis Neurologic/Psychiatric: responsive Musculoskeletal: normal muscle bulk, no effusion Laboratory Tests 11/29/17 04:15: White Blood Count 7.1, Red Blood Count 2.61L, Hemoglobin 7.8L, Hematocrit 23.8L , Mean Corpuscular Volume 91, Mean Corpuscular Hemoglobin 29.9, Mean Corpuscular Hemoglobin Concent 32.8, Red Cell Distribution Width 16.1H, Platelet Count 253, Mean Platelet Volume 6.8, Neutrophils (%) (Auto) , Lymphocytes (%) (Auto) , Monocytes (%) (Auto) , Eosinophils (%) (Auto) , Basophils (%) (Auto) , Differential Total Cells Counted 100, Neutrophils % ( Manual) 75, Lymphocytes % (Manual) 18L, Monocytes % (Manual) 3, Eosinophils % ( Manual) 4H, Basophils % (Manual) 0, Band Neutrophils 0, Platelet Estimate Adequate, Platelet Morphology Normal, Hypochromasia 3+, Anisocytosis 1+, Spherocytes 1+, Sodium Level 152H, Potassium Level 4.9, Chloride Level 115H, Carbon Dioxide Level 32, Anion Gap 5, Blood Urea Nitrogen 38H, Creatinine 2.2H, Estimat Glomerular Filtration Rate 23.2, Glucose Level 105, Calcium Level 9.3 Current Medications Medications (Trade) Dose Ordered Sig/Tay Route PRN Reason Start Time Stop Time Status Last Admin Dose Admin Acetaminophen (Tylenol) 650 mg Q6H PRN ORAL Mild Pain/Temp > 101 11/09/17 21:30 12/09/17 21:29 Fluconazole (Diflucan) 200 mg DAILY ORAL 11/25/17 14:00 12/05/17 13:59 11/29/17 09:53 Folic Acid (Folate) 2 mg DAILY NG 11/22/17 09:00 12/20/17 20:59 11/29/17 09:54 Heparin Sodium (Porcine) (Heparin 5000 units/ml) 5,000 units EVERY 12 HOURS SUBQ 11/10/17 09:00 12/10/17 08:59 11/29/17 09:56 Lansoprazole (Prevacid) 30 mg DAILY NG 11/22/17 09:00 12/22/17 08:59 11/29/17 09:53 Levetiracetam (Keppra) 1,000 mg Q12HR NG 11/28/17 21:00 12/28/17 20:59 11/29/17 09:54 Midodrine (Pro-Amatine) 5 mg THREE TIMES A DAY GT 11/28/17 18:00 12/20/17 17:59 11/29/17 17:41 Ondansetron HCl (Zofran) 4 mg Q4H PRN IVP Nausea & Vomiting 11/09/17 21:30 12/09/17 21:29 Sennosides (Senokot) 1 tab DAILY PRN ORAL Constipation 11/09/17 21:30 12/09/17 21:29 Racquel Fam DO Nov 29, 2017 21:33
[2017-11-30] VITALS: BP 117/76
[2017-11-30 04:00] VITALS: BP 99/66
[2017-11-30 05:38] LABS: BASOPHILS % (AUTO) 0.8 % (0.0-2.0); EOSINOPHILS % (AUTO) 5.7 % (0.0-3.0); HEMATOCRIT 24.8 % (37.0-47.0); LYMPHOCYTES % (AUTO) 34.2 % (20.0-45.0); MEAN CORPUSCULAR VOLUME 92 FL (80-99); MONOCYTES % (AUTO) 8.4 % (1.0-10.0); NEUTROPHILS % (AUTO) 50.9 % (45.0-75.0); PLATELET COUNT 289 K/UL (150-450); RED BLOOD COUNT 2.68 M/UL (4.20-5.40); RED CELL DISTRIBUTION WIDTH 17.4 % (11.6-14.8); WHITE BLOOD COUNT 5.1 K/UL (4.8-10.8)
[2017-11-30 05:42] LABS: ANION GAP 5 mmol/L (5-15); BLOOD UREA NITROGEN 40 mg/dL (7-18); CALCIUM 9.4 MG/DL (8.5-10.1); CARBON DIOXIDE 31 MMOL/L (21-32); CHLORIDE 115 MMOL/L (98-107); CREATININE 2.3 MG/DL (0.55-1.30); POTASSIUM 5.1 MMOL/L (3.5-5.1); SODIUM 151 MMOL/L (136-145)
[2017-11-30 08:00] VITALS: BP_SYST 106; BP_SYST 128; BP_DIAS 68; BP_DIAS 82
--- NOTE | 2017-11-30 08:17 | General Progress Note ---
Assessment/Plan Problem List: (1) Hypotension ICD Codes: I95.9 - Hypotension, unspecified SNOMED: 62163003 (2) Encounter for PEG (percutaneous endoscopic gastrostomy) ICD Codes: Z43.1 - Encounter for attention to gastrostomy SNOMED: 710529290, 970494643 (3) Dehydration ICD Codes: E86.0 - Dehydration SNOMED: 80330219 (4) Colonization with VRE (vancomycin-resistant enterococcus) ICD Codes: Z22.338 - Carrier of other streptococcus SNOMED: 763825614 Assessment/Plan (1) Electrolyte imbalance ICD Codes: E87.8 - Other disorders of electrolyte and fluid balance, not elsewhere classified SNOMED: 871464511 (2) Encounter for PEG (percutaneous endoscopic gastrostomy) ICD Codes: Z43.1 - Encounter for attention to gastrostomy SNOMED: 733222131, 679039284 (3) Dehydration ICD Codes: E86.0 - Dehydration SNOMED: 51684259 (4) Dehydration, severe ICD Codes: E86.0 - Dehydration SNOMED: 952955086 Status: doing well, stable Status Narrative Discussed with Dr. Chan. Assessment/Plan s/p PEG GTFs to goal electrolyte correction per Nephro ppi bowel regime fu labs dc planning Subjective ROS Limited/Unobtainable: No Allergies: Coded Allergies: CEFEPIME (Unverified Allergy, Unknown, 11/09/17) Objective Last 24 Hour Vital Signs Date Time Temp Pulse Resp B/P (MAP) Pulse Ox O2 Delivery O2 Flow Rate FiO2 11/30/17 07:56 98 Nasal Cannula 3.0 32 11/30/17 07:55 Nasal Cannula 3.0 32 11/30/17 06:00 30 11/30/17 04:00 30 11/30/17 04:00 97.2 82 19 99/66 (77) 98 97.2 11/30/17 04:00 92 11/30/17 04:00 Mechanical Ventilator 3.0 11/30/17 02:37 88 18 100 Full Face 30 11/30/17 01:21 90 18 99 Full Face 30 11/30/17 00:00 96.1 104 19 117/76 (90) 98 96.1 11/30/17 00:00 Mechanical Ventilator 3.0 11/29/17 23:34 85 11/29/17 23:00 85 16 99 Full Face 30 11/29/17 20:48 88 19 99 Full Face 30 11/29/17 20:00 89 11/29/17 20:00 96.8 87 18 105/70 (82) 95 96.8 11/29/17 20:00 Nasal Cannula 3.0 11/29/17 18:43 Nasal Cannula 3.0 32 11/29/17 18:42 98 Nasal Cannula 3.0 32 11/29/17 16:00 Nasal Cannula 3.0 11/29/17 16:00 86 11/29/17 16:00 96.4 88 18 109/70 (83) 94 96.4 11/29/17 12:00 95 11/29/17 12:00 Nasal Cannula 3.0 11/29/17 12:00 96.8 98 20 116/69 (85) 94 96.8 Intake and Output 11/29/17 11/30/17 19:00 07:00 Intake Total 1620 ml 880 ml Output Total 1200 ml 1100 ml Balance 420 ml -220 ml Free Water 150 ml 60 ml IV Total 750 ml Tube Feeding 720 ml 720 ml Other 100 ml Output Urine Total 1200 ml 1100 ml # Bowel Movements 3 2 Laboratory Tests 11/30/17 05:15: White Blood Count 5.1, Red Blood Count 2.68L, Hemoglobin 8.0L, Hematocrit 24.8L , Mean Corpuscular Volume 92, Mean Corpuscular Hemoglobin 30.0, Mean Corpuscular Hemoglobin Concent 32.5, Red Cell Distribution Width 17.4H, Platelet Count 289, Mean Platelet Volume 6.8, Neutrophils (%) (Auto) 50.9, Lymphocytes (%) (Auto) 34.2, Monocytes (%) (Auto) 8.4, Eosinophils (%) (Auto) 5.7H, Basophils (%) (Auto) 0.8, Sodium Level 151H, Potassium Level 5.1, Chloride Level 115H, Carbon Dioxide Level 31, Anion Gap 5, Blood Urea Nitrogen 40H, Creatinine 2.3H, Estimat Glomerular Filtration Rate 22.1, Glucose Level 101 , Calcium Level 9.4 Height (Feet): 5 Height (Inches): 2.00 Weight (Pounds): 132 General Appearance: no apparent distress EENT: normal ENT inspection Neck: supple Cardiovascular: normal rate Respiratory/Chest: decreased breath sounds Abdomen: normal bowel sounds, non tender, soft Extremities: non-tender Laith Chan MD Nov 30, 2017 08:16
[2017-11-30] MEDS: Fluconazole 100mg tab ORAL SCH (08:41)
[2017-11-30] MEDS: levETIRAcetam 500mg/5ml Liquid NG SCH ×2 (08:42→20:40)
[2017-11-30] MEDS: Heparin 5000 units/ml inj SUBQ SCH ×2 (08:43→20:49)
--- NOTE | 2017-11-30 09:41 | Urology Progress Note ---
Assessment/Plan Assessment/Plan 1. History of hydronephrosis that is chronic. 2. Renal insufficiency, acute on chronic, labile. 3. Hematuria. 4. Pyuria/UTI/colonized. 5. Proteinuria. 6. Urinary retention with chronic suprapubic tube. 7. Neurogenic bladder. sp tube indwelling, last exchanged 11/18 hand irrigated, patent abx as ordered, diflucan monitor renal fxn need old recs indwelling ureteral stents can be addressed by pt's outside urologist once medically more stable no sig renal obst noted on last u/s Subjective Allergies: Coded Allergies: CEFEPIME (Unverified Allergy, Unknown, 11/09/17) Subjective all noted Objective Last 24 Hour Vital Signs Date Time Temp Pulse Resp B/P (MAP) Pulse Ox O2 Delivery O2 Flow Rate FiO2 11/30/17 08:00 100 11/30/17 07:56 98 Nasal Cannula 3.0 32 11/30/17 07:55 Nasal Cannula 3.0 32 11/30/17 06:00 30 11/30/17 04:00 30 11/30/17 04:00 97.2 82 19 99/66 (77) 98 97.2 11/30/17 04:00 92 11/30/17 04:00 Mechanical Ventilator 3.0 11/30/17 02:37 88 18 100 Full Face 30 11/30/17 01:21 90 18 99 Full Face 30 11/30/17 00:00 96.1 104 19 117/76 (90) 98 96.1 11/30/17 00:00 Mechanical Ventilator 3.0 11/29/17 23:34 85 11/29/17 23:00 85 16 99 Full Face 30 11/29/17 20:48 88 19 99 Full Face 30 11/29/17 20:00 89 11/29/17 20:00 96.8 87 18 105/70 (82) 95 96.8 11/29/17 20:00 Nasal Cannula 3.0 11/29/17 18:43 Nasal Cannula 3.0 32 11/29/17 18:42 98 Nasal Cannula 3.0 32 11/29/17 16:00 Nasal Cannula 3.0 11/29/17 16:00 86 11/29/17 16:00 96.4 88 18 109/70 (83) 94 96.4 11/29/17 12:00 95 11/29/17 12:00 Nasal Cannula 3.0 11/29/17 12:00 96.8 98 20 116/69 (75) 94 96.8 Intake and Output 11/29/17 11/30/17 19:00 07:00 Intake Total 1620 ml 880 ml Output Total 1200 ml 1100 ml Balance 420 ml -220 ml Free Water 150 ml 60 ml IV Total 750 ml Tube Feeding 720 ml 720 ml Other 100 ml Output Urine Total 1200 ml 1100 ml # Bowel Movements 3 2 Microbiology Date/Time Source Procedure Growth Status 11/13/17 15:10 Blood Blood Culture - Final NO GROWTH AFTER 5 DAYS Complete 11/09/17 20:25 Nasal Nares MRSA Culture - Final Staphylococcus Aureus - Mrsa Complete 11/21/17 14:30 Stool Clostridium difficile Toxin Assay - Final Complete 11/20/17 19:14 Urine,Clean Catch Urine Culture - Final Amy Albicans Complete 11/10/17 20:25 Rectum - Final NO CARBAPENEM-RESISTANT ENTEROBACTERI... Complete Current Medications Medications (Trade) Dose Ordered Sig/Tay Route PRN Reason Start Time Stop Time Status Last Admin Dose Admin Acetaminophen (Tylenol) 650 mg Q6H PRN ORAL Mild Pain/Temp > 101 11/09/17 21:30 12/09/17 21:29 Fluconazole (Diflucan) 200 mg DAILY ORAL 11/25/17 14:00 12/05/17 13:59 11/30/17 08:41 Folic Acid (Folate) 2 mg DAILY NG 11/22/17 09:00 12/20/17 20:59 11/30/17 08:42 Heparin Sodium (Porcine) (Heparin 5000 units/ml) 5,000 units EVERY 12 HOURS SUBQ 11/10/17 09:00 12/10/17 08:59 11/30/17 08:43 Lansoprazole (Prevacid) 30 mg DAILY NG 11/22/17 09:00 12/22/17 08:59 11/30/17 08:42 Levetiracetam (Keppra) 1,000 mg Q12HR NG 11/28/17 21:00 12/28/17 20:59 11/30/17 08:42 Midodrine (Pro-Amatine) 5 mg THREE TIMES A DAY GT 11/28/17 18:00 12/20/17 17:59 11/29/17 17:41 Ondansetron HCl (Zofran) 4 mg Q4H PRN IVP Nausea & Vomiting 11/09/17 21:30 12/09/17 21:29 Sennosides (Senokot) 1 tab DAILY PRN ORAL Constipation 11/09/17 21:30 12/09/17 21:29 Laboratory Tests 11/30/17 05:15: White Blood Count 5.1, Red Blood Count 2.68L, Hemoglobin 8.0L, Hematocrit 24.8L , Mean Corpuscular Volume 92, Mean Corpuscular Hemoglobin 30.0, Mean Corpuscular Hemoglobin Concent 32.5, Red Cell Distribution Width 17.4H, Platelet Count 289, Mean Platelet Volume 6.8, Neutrophils (%) (Auto) 50.9, Lymphocytes (%) (Auto) 34.2, Monocytes (%) (Auto) 8.4, Eosinophils (%) (Auto) 5.7H, Basophils (%) (Auto) 0.8, Sodium Level 151H, Potassium Level 5.1, Chloride Level 115H, Carbon Dioxide Level 31, Anion Gap 5, Blood Urea Nitrogen 40H, Creatinine 2.3H, Estimat Glomerular Filtration Rate 22.1, Glucose Level 101 , Calcium Level 9.4 Height (Feet): 5 Height (Inches): 2.00 Weight (Pounds): 132 Objective exam stable abdominal u/s (11/28) noted WILBER GALINDO Nov 30, 2017 09:41
--- NOTE | 2017-11-30 11:13 | Nephrology Progress Note ---
Assessment/Plan Problem List: (1) Hypotension (2) Acute renal failure (ARF) (3) Dehydration with hypernatremia (4) Severe sepsis (5) Shock (6) Dehydration, severe Assessment Acute kidney injury, likely on chronic kidney disease. Cr 2.1 today Hypernatremia, with an initial sodium of 177. Na lowering Profound dehydration. improving Shock, likely septic. Hypercalcemia. on presentation Urinary tract infection. Has supraPubic cath History of traumatic brain injury, dementia, and seizure disorder. History of staghorn renal calculi with multiple UTIs, status post Plan albumin and one liter D5 Has PEG now K supplements as needed DC IV on tube feeding Albumin bolus PRN KCL, Mag , Phos as needed Antibiotics Monitor renal parameters- Avoid Nephrotoxics Subjective ROS Limited/Unobtainable: No Objective Objective Last 24 Hour Vital Signs Date Time Temp Pulse Resp B/P (MAP) Pulse Ox O2 Delivery O2 Flow Rate FiO2 11/30/17 08:00 Mechanical Ventilator 3.0 11/30/17 08:00 97.5 102 18 128/82 (97) 100 97.5 11/30/17 08:00 100 11/30/17 07:56 98 Nasal Cannula 3.0 32 11/30/17 07:55 Nasal Cannula 3.0 32 11/30/17 06:00 30 11/30/17 04:00 30 11/30/17 04:00 97.2 82 19 99/66 (77) 98 97.2 11/30/17 04:00 92 11/30/17 04:00 Mechanical Ventilator 3.0 11/30/17 02:37 88 18 100 Full Face 30 11/30/17 01:21 90 18 99 Full Face 30 11/30/17 00:00 96.1 104 19 117/76 (90) 98 96.1 11/30/17 00:00 Mechanical Ventilator 3.0 11/29/17 23:34 85 11/29/17 23:00 85 16 99 Full Face 30 11/29/17 20:48 88 19 99 Full Face 30 11/29/17 20:00 89 11/29/17 20:00 96.8 87 18 105/70 (82) 95 96.8 11/29/17 20:00 Nasal Cannula 3.0 11/29/17 18:43 Nasal Cannula 3.0 32 11/29/17 18:42 98 Nasal Cannula 3.0 32 11/29/17 16:00 Nasal Cannula 3.0 11/29/17 16:00 86 11/29/17 16:00 96.4 88 18 109/70 (83) 94 96.4 11/29/17 12:00 95 11/29/17 12:00 Nasal Cannula 3.0 11/29/17 12:00 96.8 98 20 116/69 (85) 94 96.8 Intake and Output 11/29/17 11/30/17 19:00 07:00 Intake Total 1620 ml 880 ml Output Total 1200 ml 1100 ml Balance 420 ml -220 ml Free Water 150 ml 60 ml IV Total 750 ml Tube Feeding 720 ml 720 ml Other 100 ml Output Urine Total 1200 ml 1100 ml # Bowel Movements 3 2 Laboratory Tests 11/30/17 05:15: White Blood Count 5.1, Red Blood Count 2.68L, Hemoglobin 8.0L, Hematocrit 24.8L , Mean Corpuscular Volume 92, Mean Corpuscular Hemoglobin 30.0, Mean Corpuscular Hemoglobin Concent 32.5, Red Cell Distribution Width 17.4H, Platelet Count 289, Mean Platelet Volume 6.8, Neutrophils (%) (Auto) 50.9, Lymphocytes (%) (Auto) 34.2, Monocytes (%) (Auto) 8.4, Eosinophils (%) (Auto) 5.7H, Basophils (%) (Auto) 0.8, Sodium Level 151H, Potassium Level 5.1, Chloride Level 115H, Carbon Dioxide Level 31, Anion Gap 5, Blood Urea Nitrogen 40H, Creatinine 2.3H, Estimat Glomerular Filtration Rate 22.1, Glucose Level 101 , Calcium Level 9.4 Height (Feet): 5 Height (Inches): 2.00 Weight (Pounds): 132 General Appearance: no apparent distress Cardiovascular: tachycardia Respiratory/Chest: decreased breath sounds Objective no change Parrish Luo MD Nov 30, 2017 11:13
[2017-11-30 12:00] VITALS: BP 136/79
--- NOTE | 2017-11-30 14:16 | Neurology Progress Note ---
Interim History Interim History Interim History Ms. Guaman feels "better." She is awake and alert. She wants to see her family. She waved to me when I entered and exited her room. She is able to say a few more words that can be understood. She is able to count fingers in her right field. She is still cognitively impoverished. She is motorically challenged. She has exhibited no clinical seizures. She is being fed through her G-Tube. Review of Systems Neuro Review of Systems Unable to obtain. Objective Physical Exam Last Vital Signs Date Time Temp Pulse Resp B/P (MAP) Pulse Ox O2 Delivery O2 Flow Rate FiO2 11/30/17 13:12 98 11/30/17 12:00 98.5 19 136/79 (98) 97 98.5 11/30/17 12:00 Mechanical Ventilator 3.0 11/30/17 07:56 32 Laboratory Tests Test 11/30/17 05:15 White Blood Count 5.1 K/UL (4.8-10.8) Red Blood Count 2.68 M/UL (4.20-5.40) L Hemoglobin 8.0 G/DL (12.0-16.0) L Hematocrit 24.8 % (37.0-47.0) L Mean Corpuscular Volume 92 FL (80-99) Mean Corpuscular Hemoglobin 30.0 PG (27.0-31.0) Mean Corpuscular Hemoglobin Concent 32.5 G/DL (32.0-36.0) Red Cell Distribution Width 17.4 % (11.6-14.8) H Platelet Count 289 K/UL (150-450) Mean Platelet Volume 6.8 FL (6.5-10.1) Neutrophils (%) (Auto) 50.9 % (45.0-75.0) Lymphocytes (%) (Auto) 34.2 % (20.0-45.0) Monocytes (%) (Auto) 8.4 % (1.0-10.0) Eosinophils (%) (Auto) 5.7 % (0.0-3.0) H Basophils (%) (Auto) 0.8 % (0.0-2.0) Sodium Level 151 MMOL/L (136-145) H Potassium Level 5.1 MMOL/L (3.5-5.1) Chloride Level 115 MMOL/L (98-107) H Carbon Dioxide Level 31 MMOL/L (21-32) Anion Gap 5 mmol/L (5-15) Blood Urea Nitrogen 40 mg/dL (7-18) H Creatinine 2.3 MG/DL (0.55-1.30) H Estimat Glomerular Filtration Rate 22.1 mL/min (>60) Glucose Level 101 MG/DL (74-106) Calcium Level 9.4 MG/DL (8.5-10.1) Neurologic Exam Objective PHYSICAL EXAMINATION: GENERAL: She is a well-developed and well-nourished lady, lying in bed , in no acute distress. HEAD: Normocephalic with right craniectomy defect. EENT: Examination benign. NECK: No neck rigidity was observed. NEUROLOGICAL EXAMINATION: MENTAL STATUS EXAMINATION: She awake and more alert. She was able to say a few words that could be understood. Further mental status testing was impossible. SPEECH: She was able to say a few words that could be understood. LANGUAGE: Could not be tested. CRANIAL NERVE EXAMINATION: II: She did blink to threat. She was able to count fingers in her right field. III, IV & : The eyes were dysconjugate. External ocular movements were present on oculocephalic maneuvers. The pupils were 3 mm in diameter, equal, round, regular, and reactive sluggishly to light. V & VII: Corneal reflexes were present, but brisker on the right than on the left. VIII: She did respond to sounds and had no nystagmus. IX & X: The gag reflex was absent. IX: Sternocleidomastoids and trapezii did function minimally on applying deep painful stimuli. XII: Tongue in the midline. MOTOR SYSTEM: The tone was increased in both lower extremities with spasticity. The tone was relatively normal in the right upper extremity but was diminished in the left upper extremity. Examination of muscle mass revealed wasting of the left upper and lower extremities and in addition a flexion contracture at the elbow. The examination of power was impossible to perform accurately as she did not move her left side at all and moved her right side minimally. SENSORY EXAMINATION: She responded to deep pain more so on the right side than the left. REFLEXES: 2+ on the left and 2++ on the right at the biceps, triceps, brachioradialis, and knees, 0 at both ankles. The plantar responses were extensor bilaterally. COORDINATION, STANCE & GAIT: Could not be tested. Impression/Recommendations Diagnostic Impression 1. Ms. Yumiko Guaman is a 52-year-old, lady, of unknown handedness, who does have a past history of severe brain trauma with a right-sided craniectomy and significant right brain encephalomalacia. She also has a history of a seizure disorder that is undefined. She has a left plegia and prior episodes of respiratory failure, urinary tract infections, and multiple episodes of sepsis. She was hospitalized on 11/09/2017 for a urinary tract infection associated with sepsis but her mental state improved with treatment of those conditions. on 11/20/17 there was a sudden decline in her level of arousal. 2. She feels "better." She is awake and alert. She wants to see her family. She waved to me when I entered and exited her room. She is able to say a few more words that can be understood. She is able to count fingers in her right field. She is still cognitively impoverished. She is motorically challenged. She has exhibited no clinical seizures. She is being fed through her G-Tube. 3. On neurological examination at this time, she does demonstrate a right-sided craniectomy. She awake and more alert. She was able to say a few words that can be understood. Further mental status testing was impossible. Language cannot be tested. She does blink to visual threat and counts fingers in her right field. The corneal reflexes are diminished on the left side compared to the right. She has left upper extremity greater than lower extremity contractures and left- sided plegia and significant right-sided hemiparesis. She only responds to deep pain on the right side with minimal withdrawal but not on the left side. The deep tendon reflexes are brisker on the right side compared to the left and she has extensor plantar responses bilaterally. 4. CT scan of the brain without contrast performed on 11/20/2017 revealed a large right convexity craniectomy and extensive underlying temporal and parietal encephalomalacia. There was also encephalomalacia of the right cerebellum. There was a left frontal craniotomy defect with overlying mesh. There was no significant underlying parenchymal abnormality on the left side. She also had right-sided ventriculostomy. No acute pathology was noted. 5. Laboratory data revealed that she was anemic with a hemoglobin of 10.5 G. Her WBC count was 10,000 but she had a left-sided shift with 80% polymorphonuclear leukocytes. The chemistry panel revealed a creatinine elevated to 2.0. The ammonia was minimally elevated at 34. The Vitamin B12 level and TSH were normal. The Folate was minimally low at 3.9. The Urinalysis that was done on 11/09/2017 revealed 3+ leukocyte esterase, 40-60 RBCs and 40-60 WBCs per high-power field. Her latest arterial blood gas revealed a pH of 7.35, pCO2 of 42, and pO2 of 60. 6. The EEG done on 11/21/17 revealed severe generalized cerebral dysfunction and multiple electrographic seizures emanating from the right fronto-central region sometimes lasting al long as 120 seconds. 7. The EEG done on 11/24/17 revealed a continuous electrographic seizure emanating from the right fronto-central area during her entire EEG and severe generalized cerebral dysfunction. 8. The patient's history, neurological examination, and laboratory data and imaging studies are most compatible with worsening of a toxic metabolic encephalopathy and in addition subclinical electrographic seizures emanating from the right fronto-central region. 9. Her mental state has improved significantly compared to a few days ago and continues to improve with an increase in her anti-seizure medicine dose. Recommendations 1. Continue present management. 2. Continue present therapeutic management. 3. Continue aggressive antibiotic treatment. 4. Continue to correct the patient's toxic metabolic imbalances. 5. Continue Keppra 1500 mg IV q 12 hours. 6. Repeat EEG 7. Observe closely. Roseann Barnes M.D., M.S.P.H. ROSEANN BARNES Nov 30, 2017 14:16
--- NOTE | 2017-11-30 14:17 | General Progress Note ---
Assessment/Plan Assessment/Plan #. Anemia of chronic disease -- workup has been reviewed from before and noted to have high ferritin 1500, other labs consistent with ACD --> monitor and started on folic acid --> hgb goal >7, transfuse prn basis #. Thrombocytopenia plt count 100-150k, monitor if changes, currently in this range --> egd and peg completed 11/26/2017 --> hepatitis and hiv are negative --> meds reviewed and on antibiotics at this time --> ok to continue heparin 5k sq tid as ppx # Severe brain trauma with a right-sided craniectomy and significant right brain encephalomalacia. She also has a history of a seizure disorder that is undefined. --> appreciate neuro recs # Respiratory failure and now s/p takedown --> appreciate pulm recs # Urinary tract infection, and multiple episodes of sepsis. --> s/p abx treatment and seen by ID # Hydronephrosis r kidney --> may need stent exchange per uro, appreciate their recs # Dysphagia s/p peg tube # remains critically ill, bioethics/hospice services consulted --> pending family meeting, reviewed pulm recs Appreciate consultation greatly. Continue to follow. Subjective Constitutional: Denies: no symptoms, chills, diaphoresis, fever, malaise, weakness, other HEENT: Denies: no symptoms, eye pain, blurred vision, tearing, double vision, ear pain, ear discharge, nose pain, nose congestion, throat pain, throat swelling, mouth pain, mouth swelling, other Cardiovascular: Denies: no symptoms, chest pain, edema, irregular heart rate, lightheadedness, palpitations, syncope, other Respiratory: Denies: no symptoms, cough, orthopnea, shortness of breath, SOB with excertion, SOB at rest, sputum, stridor, wheezing, other Gastrointestinal/Abdominal: Denies: no symptoms, abdomen distended, abdominal pain, black stools, tarry stools, blood in stool, constipated, diarrhea, difficulty swallowing, nausea, poor appetite, poor fluid intake, rectal bleeding , vomiting, other Genitourinary: Denies: no symptoms, burning, discharge, frequency, flank pain, hematuria, incontinence, pain, urgency, other Neurologic/Psychiatric: Denies: no symptoms, anxiety, depressed, emotional problems, headache, numbness, paresthesia, pre-existing deficit, seizure, tingling, tremors, weakness, other Endocrine: Denies: no symptoms, excessive sweating, flushing, intolerance to cold, intolerance to heat, increased hunger, increased thirst, increased urine, unexplained weight gain, unexplained weight loss, other Hematologic/Lymphatic: Denies: no symptoms, anemia, easy bleeding, easy bruising, other Allergies: Coded Allergies: CEFEPIME (Unverified Allergy, Unknown, 11/09/17) Subjective gtube feeds ongoing, no events currently off bipap, but is on NC Objective Last 24 Hour Vital Signs Date Time Temp Pulse Resp B/P (MAP) Pulse Ox O2 Delivery O2 Flow Rate FiO2 11/30/17 13:12 98 11/30/17 12:00 98.5 97 19 136/79 (98) 97 98.5 11/30/17 12:00 Mechanical Ventilator 3.0 11/30/17 08:00 Mechanical Ventilator 3.0 11/30/17 08:00 97.5 102 18 128/82 (97) 100 97.5 11/30/17 08:00 100 11/30/17 07:56 98 Nasal Cannula 3.0 32 11/30/17 07:55 Nasal Cannula 3.0 32 11/30/17 06:00 30 11/30/17 04:00 30 11/30/17 04:00 97.2 82 19 99/66 (77) 98 97.2 11/30/17 04:00 92 11/30/17 04:00 Mechanical Ventilator 3.0 11/30/17 02:37 88 18 100 Full Face 30 11/30/17 01:21 90 18 99 Full Face 30 11/30/17 00:00 96.1 104 19 117/76 (90) 98 96.1 11/30/17 00:00 Mechanical Ventilator 3.0 11/29/17 23:34 85 11/29/17 23:00 85 16 99 Full Face 30 11/29/17 20:48 88 19 99 Full Face 30 11/29/17 20:00 89 11/29/17 20:00 96.8 87 18 105/70 (82) 95 96.8 11/29/17 20:00 Nasal Cannula 3.0 11/29/17 18:43 Nasal Cannula 3.0 32 9/29/18 18:42 98 Nasal Cannula 3.0 32 11/29/17 16:00 Nasal Cannula 3.0 11/29/17 16:00 86 11/29/17 16:00 96.4 88 18 109/70 (83) 94 96.4 Intake and Output 11/29/17 11/30/17 19:00 07:00 Intake Total 1620 ml 880 ml Output Total 1200 ml 1100 ml Balance 420 ml -220 ml Free Water 150 ml 60 ml IV Total 750 ml Tube Feeding 720 ml 720 ml Other 100 ml Output Urine Total 1200 ml 1100 ml # Bowel Movements 3 2 Laboratory Tests 11/30/17 05:15: White Blood Count 5.1, Red Blood Count 2.68L, Hemoglobin 8.0L, Hematocrit 24.8L , Mean Corpuscular Volume 92, Mean Corpuscular Hemoglobin 30.0, Mean Corpuscular Hemoglobin Concent 32.5, Red Cell Distribution Width 17.4H, Platelet Count 289, Mean Platelet Volume 6.8, Neutrophils (%) (Auto) 50.9, Lymphocytes (%) (Auto) 34.2, Monocytes (%) (Auto) 8.4, Eosinophils (%) (Auto) 5.7H, Basophils (%) (Auto) 0.8, Sodium Level 151H, Potassium Level 5.1, Chloride Level 115H, Carbon Dioxide Level 31, Anion Gap 5, Blood Urea Nitrogen 40H, Creatinine 2.3H, Estimat Glomerular Filtration Rate 22.1, Glucose Level 101 , Calcium Level 9.4 Height (Feet): 5 Height (Inches): 2.00 Weight (Pounds): 132 General Appearance: no apparent distress EENT: TMs normal Neck: normal inspection Cardiovascular: regular rhythm Respiratory/Chest: normal breath sounds Abdomen: no mass, other - peg++ Extremities: normal inspection Edema: 1+ Leg (L), 1+ Leg (R) Neurologic: alert Skin: warm/dry Dawit Mcclendon MD Nov 30, 2017 14:17
[2017-11-30] MEDS ORDERED: NS 275ml ONE (15:14)
[2017-11-30] MEDS ORDERED: Tubing IV Secondary IV ONE (15:14)
[2017-11-30 16:00] VITALS: BP 116/73
--- NOTE | 2017-11-30 16:25 | Infectious Diseases Prog Note ---
Assessment/Plan Problems: (1) Catheter-associated urinary tract infection Assessment & Plan: with nahed spp , recommend to change suprapubic catheter since it is colonized with yeast, will continue fluconazole for 14 days total . EOT 12/06/17 (2) Acute pyelonephritis Assessment & Plan: with MDR Providencia stuartii, and MRSA , suspect due to right ureter stent obstruction, S/P vancomycin to cover for MRSA , and ertapenem for MDR Providencia stuartii for two weeks total , urology eval is in progress , may need stent removal . (3) Hydronephrosis of right kidney Assessment & Plan: suspect ureter stent malfunction , urology eval is in progress, may need stent removal (4) Renal failure Assessment & Plan: continue aggressive hydration , monitor renal function, avoid nephrotoxics (5) Colonization with VRE (vancomycin-resistant enterococcus) Assessment & Plan: keep in contact isolation (6) Hypotension Assessment & Plan: doubt due to sepsis , suspect dehydration . cortisol level looks ok . repeated blood culture is negative . continue hydration (7) Diarrhea Assessment & Plan: not due to C diff with negative toxin , continue aggressive hydration (8) Acute respiratory failure with hypoxia Assessment & Plan: suspect due to secretions , recommend aggressive suctioning , continue BIPAP as per pulmonary, monitor CXR and ABG Subjective ROS Limited/Unobtainable: Yes Allergies: Coded Allergies: CEFEPIME (Unverified Allergy, Unknown, 11/09/17) Subjective she was lying in bed, more awake and responsive to verbal commands , waives with hands , no respiratory distress , off BIPAP machine , a febrile Objective Vital Signs Last 24 Hour Vital Signs Date Time Temp Pulse Resp B/P (MAP) Pulse Ox O2 Delivery O2 Flow Rate FiO2 11/30/17 16:17 96 11/30/17 16:00 Mechanical Ventilator 3.0 11/30/17 13:12 98 11/30/17 12:00 98.5 97 19 136/79 (98) 97 98.5 11/30/17 12:00 Mechanical Ventilator 3.0 11/30/17 08:00 Mechanical Ventilator 3.0 11/30/17 08:00 97.5 102 18 128/82 (97) 100 97.5 11/30/17 08:00 100 11/30/17 07:56 98 Nasal Cannula 3.0 32 11/30/17 07:55 Nasal Cannula 3.0 32 11/30/17 06:00 30 11/30/17 04:00 30 11/30/17 04:00 97.2 82 19 99/66 (77) 98 97.2 11/30/17 04:00 92 11/30/17 04:00 Mechanical Ventilator 3.0 11/30/17 02:37 88 18 100 Full Face 30 11/30/17 01:21 90 18 99 Full Face 30 11/30/17 00:00 96.1 104 19 117/76 (90) 98 96.1 11/30/17 00:00 Mechanical Ventilator 3.0 11/29/17 23:34 85 11/29/17 23:00 85 16 99 Full Face 30 11/29/17 20:48 88 19 99 Full Face 30 11/29/17 20:00 89 11/29/17 20:00 96.8 87 18 105/70 (82) 95 96.8 11/29/17 20:00 Nasal Cannula 3.0 11/29/17 18:43 Nasal Cannula 3.0 32 11/29/17 18:42 98 Nasal Cannula 3.0 32 Height (Feet): 5 Height (Inches): 2.00 Weight (Pounds): 132 General Appearance: WD/WN, no acute distress HEENT: normocephalic, atraumatic, anicteric, mucous membranes moist, PERRL, supple, no JVD Respiratory/Chest: chest wall non-tender, no respiratory distress, no accessory muscle use, decreased breath sounds, crackles/rales Cardiovascular: normal peripheral pulses, normal rate, regular rhythm, no gallop/murmur, no JVD Abdomen: normal bowel sounds, soft, non tender, no organomegaly, non distended , no mass, no scars Genitourinary: normal external genitalia Extremities: no cyanosis, no clubbing Skin: no rash, no lesions, no ulcers Neurologic/Psychiatric: alert, responsive Lymphatic: no neck adenopathy, no groin adenopathy Musculoskeletal: normal muscle bulk, no effusion Laboratory Tests Test 11/30/17 05:15 White Blood Count 5.1 K/UL (4.8-10.8) Red Blood Count 2.68 M/UL (4.20-5.40) L Hemoglobin 8.0 G/DL (12.0-16.0) L Hematocrit 24.8 % (37.0-47.0) L Mean Corpuscular Volume 92 FL (80-99) Mean Corpuscular Hemoglobin 30.0 PG (27.0-31.0) Mean Corpuscular Hemoglobin Concent 32.5 G/DL (32.0-36.0) Red Cell Distribution Width 17.4 % (11.6-14.8) H Platelet Count 289 K/UL (150-450) Mean Platelet Volume 6.8 FL (6.5-10.1) Neutrophils (%) (Auto) 50.9 % (45.0-75.0) Lymphocytes (%) (Auto) 34.2 % (20.0-45.0) Monocytes (%) (Auto) 8.4 % (1.0-10.0) Eosinophils (%) (Auto) 5.7 % (0.0-3.0) H Basophils (%) (Auto) 0.8 % (0.0-2.0) Sodium Level 151 MMOL/L (136-145) H Potassium Level 5.1 MMOL/L (3.5-5.1) Chloride Level 115 MMOL/L (98-107) H Carbon Dioxide Level 31 MMOL/L (21-32) Anion Gap 5 mmol/L (5-15) Blood Urea Nitrogen 40 mg/dL (7-18) H Creatinine 2.3 MG/DL (0.55-1.30) H Estimat Glomerular Filtration Rate 22.1 mL/min (>60) Glucose Level 101 MG/DL (74-106) Calcium Level 9.4 MG/DL (8.5-10.1) Current Medications Medications (Trade) Dose Ordered Sig/Tay Route PRN Reason Start Time Stop Time Status Last Admin Dose Admin Acetaminophen (Tylenol) 650 mg Q6H PRN ORAL Mild Pain/Temp > 101 11/09/17 21:30 12/09/17 21:29 Dextrose 1,000 ml @ 100 mls/hr Q10H ONCE IV 11/30/17 11:15 11/30/17 21:14 11/30/17 11:31 Fluconazole (Diflucan) 200 mg DAILY ORAL 11/25/17 14:00 12/05/17 13:59 11/30/17 08:41 Folic Acid (Folate) 2 mg DAILY NG 11/22/17 09:00 12/20/17 20:59 11/30/17 08:42 Heparin Sodium (Porcine) (Heparin 5000 units/ml) 5,000 units EVERY 12 HOURS SUBQ 11/10/17 09:00 12/10/17 08:59 11/30/17 08:43 Lansoprazole (Prevacid) 30 mg DAILY NG 11/22/17 09:00 12/22/17 08:59 11/30/17 08:42 Levetiracetam (Keppra) 1,000 mg Q12HR NG 11/28/17 21:00 12/28/17 20:59 11/30/17 08:42 Midodrine (Pro-Amatine) 5 mg THREE TIMES A DAY GT 11/28/17 18:00 12/20/17 17:59 11/29/17 17:41 Ondansetron HCl (Zofran) 4 mg Q4H PRN IVP Nausea & Vomiting 11/09/17 21:30 12/09/17 21:29 Sennosides (Senokot) 1 tab DAILY PRN ORAL Constipation 11/09/17 21:30 12/09/17 21:29 Kortney Quiñones M.D. Nov 30, 2017 16:25
--- NOTE | 2017-11-30 17:54 | Pulmonology Progress Note ---
Assessment/Plan Assessment/Plan PROBLEM LIST: 1. SIRS/sepsis. 2. Shock, likely septic. 3. Profound dehydration. 4. Hypernatremia, with an initial sodium of 177. 5. Anion gap metabolic acidosis, lactic acidosis. 6. Acute kidney injury, likely on chronic kidney disease. 7. Hypercalcemia. 8. Urinary tract infection. 9. History of traumatic brain injury, dementia, and seizure disorder. 10. History of prior tracheostomy, status post takedown. 11. History of staghorn renal calculi with multiple UTIs, status post suprapubic catheter placement. 12. custodial resident. 13. Nonverbal at baseline. 14. Bed-bound. 15. Full Code. TREATMENT PLAN: 1. IVF per renal, continue midodrine, replete free water 2. S/P NGT, OCTO PEG, will need 2 physician consent per ETHICS 3. PRN O2, PRN HHN's bipap qhs and prn distress 4. Clinda per ID 5. F/U recs 6. Monitor MS, F/U neuro recs 7. Heparin subcutaneous for DVT prophylaxis. 8. The patient is a Full Code, POLST reviewed by myself, we continue to discuss goals of care further ---> FAMILY MEETING SHOULD BE ARRANGED Subjective ROS Limited/Unobtainable: Yes Allergies: Coded Allergies: CEFEPIME (Unverified Allergy, Unknown, 11/09/17) Subjective much more awake than previous exam off bipap at this time, using at night positive secretions attempts to communicate, Nt suctioning by RT no reports of cp nv or bleeding not getting oob. Objective Last 24 Hour Vital Signs Date Time Temp Pulse Resp B/P (MAP) Pulse Ox O2 Delivery O2 Flow Rate FiO2 11/30/17 16:17 96 11/30/17 16:00 Mechanical Ventilator 3.0 11/30/17 16:00 96.8 94 19 116/73 (87) 98 96.8 11/30/17 13:12 98 11/30/17 12:00 98.5 97 19 136/79 (98) 97 98.5 11/30/17 12:00 Mechanical Ventilator 3.0 11/30/17 08:00 Mechanical Ventilator 3.0 11/30/17 08:00 97.5 102 18 128/82 (97) 100 97.5 9/30/18 08:00 100 11/30/17 07:56 98 Nasal Cannula 3.0 32 11/30/17 07:55 Nasal Cannula 3.0 32 11/30/17 06:00 30 11/30/17 04:00 30 11/30/17 04:00 97.2 82 19 99/66 (77) 98 97.2 11/30/17 04:00 92 11/30/17 04:00 Mechanical Ventilator 3.0 11/30/17 02:37 88 18 100 Full Face 30 11/30/17 01:21 90 18 99 Full Face 30 11/30/17 00:00 96.1 104 19 117/76 (90) 98 96.1 11/30/17 00:00 Mechanical Ventilator 3.0 11/29/17 23:34 85 11/29/17 23:00 85 16 99 Full Face 30 11/29/17 20:48 88 19 99 Full Face 30 11/29/17 20:00 89 11/29/17 20:00 96.8 87 18 105/70 (82) 95 96.8 11/29/17 20:00 Nasal Cannula 3.0 11/29/17 18:43 Nasal Cannula 3.0 32 11/29/17 18:42 98 Nasal Cannula 3.0 32 Intake and Output 11/29/17 11/30/17 19:00 07:00 Intake Total 1620 ml 880 ml Output Total 1200 ml 1100 ml Balance 420 ml -220 ml Free Water 150 ml 60 ml IV Total 750 ml Tube Feeding 720 ml 720 ml Other 100 ml Output Urine Total 1200 ml 1100 ml # Bowel Movements 3 2 General Appearance: cachetic Respiratory/Chest: rhonchi Cardiovascular: normal rate, regularly irregular Abdomen: soft, non tender, no organomegaly Skin: no ulcers Neurologic/Psychiatric: responsive, disoriented Laboratory Tests 11/30/17 05:15: White Blood Count 5.1, Red Blood Count 2.68L, Hemoglobin 8.0L, Hematocrit 24.8L , Mean Corpuscular Volume 92, Mean Corpuscular Hemoglobin 30.0, Mean Corpuscular Hemoglobin Concent 32.5, Red Cell Distribution Width 17.4H, Platelet Count 289, Mean Platelet Volume 6.8, Neutrophils (%) (Auto) 50.9, Lymphocytes (%) (Auto) 34.2, Monocytes (%) (Auto) 8.4, Eosinophils (%) (Auto) 5.7H, Basophils (%) (Auto) 0.8, Sodium Level 151H, Potassium Level 5.1, Chloride Level 115H, Carbon Dioxide Level 31, Anion Gap 5, Blood Urea Nitrogen 40H, Creatinine 2.3H, Estimat Glomerular Filtration Rate 22.1, Glucose Level 101 , Calcium Level 9.4 Current Medications Medications (Trade) Dose Ordered Sig/Tay Route PRN Reason Start Time Stop Time Status Last Admin Dose Admin Acetaminophen (Tylenol) 650 mg Q6H PRN ORAL Mild Pain/Temp > 101 11/09/17 21:30 12/09/17 21:29 Dextrose 1,000 ml @ 100 mls/hr Q10H ONCE IV 11/30/17 11:15 11/30/17 21:14 11/30/17 11:31 Fluconazole (Diflucan) 200 mg DAILY ORAL 11/25/17 14:00 12/05/17 13:59 11/30/17 08:41 Folic Acid (Folate) 2 mg DAILY NG 11/22/17 09:00 12/20/17 20:59 11/30/17 08:42 Heparin Sodium (Porcine) (Heparin 5000 units/ml) 5,000 units EVERY 12 HOURS SUBQ 11/10/17 09:00 12/10/17 08:59 11/30/17 08:43 Lansoprazole (Prevacid) 30 mg DAILY NG 11/22/17 09:00 12/22/17 08:59 11/30/17 08:42 Levetiracetam (Keppra) 1,000 mg Q12HR NG 11/28/17 21:00 12/28/17 20:59 11/30/17 08:42 Midodrine (Pro-Amatine) 5 mg THREE TIMES A DAY GT 11/28/17 18:00 12/20/17 17:59 11/29/17 17:41 Ondansetron HCl (Zofran) 4 mg Q4H PRN IVP Nausea & Vomiting 11/09/17 21:30 12/09/17 21:29 Sennosides (Senokot) 1 tab DAILY PRN ORAL Constipation 11/09/17 21:30 12/09/17 21:29 Racquel Fam DO Nov 30, 2017 17:54
[2017-11-30 20:00] VITALS: BP 117/68
[2017-12-01] VITALS: BP 120/87
[2017-12-01 04:00] VITALS: BP 118/77
--- NOTE | 2017-12-01 07:01 | General Progress Note ---
Assessment/Plan Assessment/Plan #. Anemia of chronic disease -- workup has been reviewed from before and noted to have high ferritin 1500, other labs consistent with ACD --> monitor and started on folic acid daily --> hgb goal >7, transfuse prn basis #. 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 She also has a history of a seizure disorder that is undefined. --> appreciate neuro recs # Respiratory failure and now s/p takedown --> appreciate pulm recs # Urinary tract infection, and multiple episodes of sepsis. --> s/p abx treatment and seen by ID # Hydronephrosis r kidney --> may need stent exchange per uro, appreciate their recs # Dysphagia s/p peg tube --> getting gtube feeds # Trace right sided pleural effusion # Remains critically ill, bioethics/hospice services consulted --> pending family meeting, reviewed pulm recs Appreciate consultation greatly. Continue to follow. Subjective Constitutional: Denies: no symptoms, chills, diaphoresis, fever, malaise, weakness, other HEENT: Denies: no symptoms, eye pain, blurred vision, tearing, double vision, ear pain, ear discharge, nose pain, nose congestion, throat pain, throat swelling, mouth pain, mouth swelling, other Cardiovascular: Denies: no symptoms, chest pain, edema, irregular heart rate, lightheadedness, palpitations, syncope, other Respiratory: Denies: no symptoms, cough, orthopnea, shortness of breath, SOB with excertion, SOB at rest, sputum, stridor, wheezing, other Genitourinary: Denies: no symptoms, burning, discharge, frequency, flank pain, hematuria, incontinence, pain, urgency, other Neurologic/Psychiatric: Denies: no symptoms, anxiety, depressed, emotional problems, headache, numbness, paresthesia, pre-existing deficit, seizure, tingling, tremors, weakness, other Hematologic/Lymphatic: Denies: no symptoms, anemia, easy bleeding, easy bruising, other Allergies: Coded Allergies: CEFEPIME (Unverified Allergy, Unknown, 11/09/17) Subjective gtube feeds ongoing, no events currently off bipap, on NC Objective Last 24 Hour Vital Signs Date Time Temp Pulse Resp B/P (MAP) Pulse Ox O2 Delivery O2 Flow Rate FiO2 12/01/17 04:45 85 18 99 12/01/17 04:00 Mechanical Ventilator 3.0 12/01/17 04:00 98.5 83 18 118/77 (91) 96 98.5 12/01/17 04:00 86 12/01/17 03:02 102 26 97 Full Face 30 12/01/17 01:20 95 18 98 Full Face 30 12/01/17 00:00 Mechanical Ventilator 3.0 12/01/17 00:00 98.7 68 20 120/87 (98) 95 98.7 11/30/17 22:38 100 17 96 Full Face 30 11/30/17 20:16 104 18 95 Full Face 30 11/30/17 20:04 Mechanical Ventilator 3.0 11/30/17 20:00 98.0 100 19 117/68 (84) 93 98.0 11/30/17 20:00 100 11/30/17 19:00 93 Nasal Cannula 3.0 32 11/30/17 19:00 Nasal Cannula 3.0 32 11/30/17 16:17 96 11/30/17 16:00 Mechanical Ventilator 3.0 11/30/17 16:00 96.8 94 19 116/73 (87) 98 96.8 11/30/17 13:12 98 11/30/17 12:00 98.5 97 19 136/79 (98) 97 98.5 11/30/17 12:00 Mechanical Ventilator 3.0 11/30/17 08:00 Mechanical Ventilator 3.0 11/30/17 08:00 97.5 102 18 128/82 (97) 100 97.5 11/30/17 08:00 100 11/30/17 07:56 98 Nasal Cannula 3.0 32 11/30/17 07:55 Nasal Cannula 3.0 32 Intake and Output 11/30/17 12/01/17 19:00 07:00 Intake Total 2060 ml 1310 ml Output Total 1000 ml 1500 ml Balance 1060 ml -190 ml Free Water 300 ml 300 ml IV Total 1100 ml 350 ml Tube Feeding 660 ml 660 ml Output Urine Total 1000 ml 1500 ml # Bowel Movements 2 5 Height (Feet): 5 Height (Inches): 2.00 Weight (Pounds): 132 General Appearance: no apparent distress EENT: TMs normal Neck: normal alignment Cardiovascular: regular rhythm Respiratory/Chest: lungs clear Abdomen: soft, other - peg Extremities: non-tender Edema: 1+ Leg (L), 1+ Leg (R) Edema: mild edema Skin: warm/dry Dawit Mcclendon MD Dec 01, 2017 07:01
[2017-12-01 08:00] VITALS: BP 96/61
[2017-12-01 08:15] LABS: BASOPHILS % (AUTO) 1.1 % (0.0-2.0); EOSINOPHILS % (AUTO) 5.8 % (0.0-3.0); HEMATOCRIT 25.9 % (37.0-47.0); HEMOGLOBIN 8.3 G/DL (12.0-16.0); LYMPHOCYTES % (AUTO) 27.3 % (20.0-45.0); MEAN CORPUSCULAR VOLUME 92 FL (80-99); MONOCYTES % (AUTO) 7.9 % (1.0-10.0); PLATELET COUNT 301 K/UL (150-450); RED BLOOD COUNT 2.82 M/UL (4.20-5.40); RED CELL DISTRIBUTION WIDTH 16.6 % (11.6-14.8)
[2017-12-01 08:28] LABS: ANION GAP 7 mmol/L (5-15); BLOOD UREA NITROGEN 39 mg/dL (7-18); CALCIUM 9.3 MG/DL (8.5-10.1); CARBON DIOXIDE 27 MMOL/L (21-32); CHLORIDE 112 MMOL/L (98-107); CREATININE 2.2 MG/DL (0.55-1.30); POTASSIUM 5.7 MMOL/L (3.5-5.1); SODIUM 146 MMOL/L (136-145)
[2017-12-01] MEDS: Fluconazole 100mg tab ORAL SCH (10:01)
[2017-12-01] MEDS: levETIRAcetam 500mg/5ml Liquid NG SCH ×2 (10:02→21:09)
[2017-12-01] MEDS: Heparin 5000 units/ml inj SUBQ SCH ×2 (10:04→21:10)
--- NOTE | 2017-12-01 10:35 | GI Progress Note ---
Assessment/Plan Problems: (1) Electrolyte imbalance ICD Codes: E87.8 - Other disorders of electrolyte and fluid balance, not elsewhere classified SNOMED: 825127842 (2) Encounter for PEG (percutaneous endoscopic gastrostomy) ICD Codes: Z43.1 - Encounter for attention to gastrostomy SNOMED: 639125965, 749962577 (3) Dehydration ICD Codes: E86.0 - Dehydration SNOMED: 12820312 (4) Dehydration, severe ICD Codes: E86.0 - Dehydration SNOMED: 217669335 Status: stable Status Narrative Discussed with Dr. Chan. Assessment/Plan s/p PEG GTFs to goal electrolyte correction per Nephro ppi bowel regime fu labs dc planning The patient was seen and examined at bedside and all new and available data was reviewed in the patients chart. I agree with the above findings, impression and plan. (Patient seen earlier today. Signature stamp does not reflect patient encounter time.). - Laith Chan MD Subjective Subjective limited Objective Last 24 Hour Vital Signs Date Time Temp Pulse Resp B/P (MAP) Pulse Ox O2 Delivery O2 Flow Rate FiO2 12/01/17 08:00 79 12/01/17 08:00 96.4 82 16 96/61 (73) 99 96.4 12/01/17 04:45 85 18 99 12/01/17 04:00 Mechanical Ventilator 3.0 12/01/17 04:00 98.5 83 18 118/77 (91) 96 98.5 12/01/17 04:00 86 12/01/17 03:02 102 26 97 Full Face 30 12/01/17 01:20 95 18 98 Full Face 30 12/01/17 00:00 Mechanical Ventilator 3.0 12/01/17 00:00 98.7 68 20 120/87 (98) 95 98.7 11/30/17 22:38 100 17 96 Full Face 30 11/30/17 20:16 104 18 95 Full Face 30 11/30/17 20:04 Mechanical Ventilator 3.0 11/30/17 20:00 98.0 100 19 117/68 (84) 93 98.0 11/30/17 20:00 100 11/30/17 19:00 93 Nasal Cannula 3.0 32 11/30/17 19:00 Nasal Cannula 3.0 32 9/30/18 16:17 96 11/30/17 16:00 Mechanical Ventilator 3.0 11/30/17 16:00 96.8 94 19 116/73 (87) 98 96.8 11/30/17 13:12 98 11/30/17 12:00 98.5 97 19 136/79 (98) 97 98.5 11/30/17 12:00 Mechanical Ventilator 3.0 Intake and Output 11/30/17 12/01/17 19:00 07:00 Intake Total 2060 ml 1310 ml Output Total 1000 ml 1500 ml Balance 1060 ml -190 ml Free Water 300 ml 300 ml IV Total 1100 ml 350 ml Tube Feeding 660 ml 660 ml Output Urine Total 1000 ml 1500 ml # Bowel Movements 2 5 Laboratory Tests Test 12/01/17 07:50 White Blood Count 6.0 K/UL (4.8-10.8) Red Blood Count 2.82 M/UL (4.20-5.40) L Hemoglobin 8.3 G/DL (12.0-16.0) L Hematocrit 25.9 % (37.0-47.0) L Mean Corpuscular Volume 92 FL (80-99) Mean Corpuscular Hemoglobin 29.6 PG (27.0-31.0) Mean Corpuscular Hemoglobin Concent 32.2 G/DL (32.0-36.0) Red Cell Distribution Width 16.6 % (11.6-14.8) H Platelet Count 301 K/UL (150-450) Mean Platelet Volume 7.3 FL (6.5-10.1) Neutrophils (%) (Auto) 58.0 % (45.0-75.0) Lymphocytes (%) (Auto) 27.3 % (20.0-45.0) Monocytes (%) (Auto) 7.9 % (1.0-10.0) Eosinophils (%) (Auto) 5.8 % (0.0-3.0) H Basophils (%) (Auto) 1.1 % (0.0-2.0) Sodium Level 146 MMOL/L (136-145) H Potassium Level 5.7 MMOL/L (3.5-5.1) H Chloride Level 112 MMOL/L (98-107) H Carbon Dioxide Level 27 MMOL/L (21-32) Anion Gap 7 mmol/L (5-15) Blood Urea Nitrogen 39 mg/dL (7-18) H Creatinine 2.2 MG/DL (0.55-1.30) H Estimat Glomerular Filtration Rate 23.2 mL/min (>60) Glucose Level 109 MG/DL (74-106) H Calcium Level 9.3 MG/DL (8.5-10.1) Height (Feet): 5 Height (Inches): 2.00 Weight (Pounds): 132 General Appearance: no apparent distress Cardiovascular: normal rate Respiratory/Chest: normal breath sounds, other - tracheostomy Abdominal Exam: soft Olivia Lubin NP Dec 01, 2017 10:35
--- NOTE | 2017-12-01 10:42 | Urology Progress Note ---
Assessment/Plan Assessment/Plan 1. History of hydronephrosis that is chronic. 2. Renal insufficiency, acute on chronic, labile. 3. Hematuria. 4. Pyuria/UTI/colonized. 5. Proteinuria. 6. Urinary retention with chronic suprapubic tube. 7. Neurogenic bladder. sp tube indwelling, last exchanged 11/18 hand irrigated, patent abx as ordered, diflucan monitor renal fxn need old recs indwelling ureteral stents can be addressed by pt's outside urologist once medically more stable no sig renal obst noted on last u/s Subjective Allergies: Coded Allergies: CEFEPIME (Unverified Allergy, Unknown, 11/09/17) Subjective all noted Objective Last 24 Hour Vital Signs Date Time Temp Pulse Resp B/P (MAP) Pulse Ox O2 Delivery O2 Flow Rate FiO2 12/01/17 08:00 79 12/01/17 08:00 96.4 82 16 96/61 (73) 99 96.4 12/01/17 04:45 85 18 99 12/01/17 04:00 Mechanical Ventilator 3.0 12/01/17 04:00 98.5 83 18 118/77 (91) 96 98.5 12/01/17 04:00 86 12/01/17 03:02 102 26 97 Full Face 30 12/01/17 01:20 95 18 98 Full Face 30 12/01/17 00:00 Mechanical Ventilator 3.0 12/01/17 00:00 98.7 68 20 120/87 (98) 95 98.7 11/30/17 22:38 100 17 96 Full Face 30 11/30/17 20:16 104 18 95 Full Face 30 11/30/17 20:04 Mechanical Ventilator 3.0 11/30/17 20:00 98.0 100 19 117/68 (84) 93 98.0 11/30/17 20:00 100 11/30/17 19:00 93 Nasal Cannula 3.0 32 11/30/17 19:00 Nasal Cannula 3.0 32 11/30/17 16:17 96 11/30/17 16:00 Mechanical Ventilator 3.0 11/30/17 16:00 96.8 94 19 116/73 (87) 98 96.8 11/30/17 13:12 98 11/30/17 12:00 98.5 97 19 136/79 (98) 97 98.5 11/30/17 12:00 Mechanical Ventilator 3.0 Intake and Output 11/30/17 12/01/17 19:00 07:00 Intake Total 2060 ml 1310 ml Output Total 1000 ml 1500 ml Balance 1060 ml -190 ml Free Water 300 ml 300 ml IV Total 1100 ml 350 ml Tube Feeding 660 ml 660 ml Output Urine Total 1000 ml 1500 ml # Bowel Movements 2 5 Microbiology Date/Time Source Procedure Growth Status 11/13/17 15:10 Blood Blood Culture - Final NO GROWTH AFTER 5 DAYS Complete 11/09/17 20:25 Nasal Nares MRSA Culture - Final Staphylococcus Aureus - Mrsa Complete 11/21/17 14:30 Stool Clostridium difficile Toxin Assay - Final Complete 11/20/17 19:14 Urine,Clean Catch Urine Culture - Final Amy Albicans Complete 11/10/17 20:25 Rectum - Final NO CARBAPENEM-RESISTANT ENTEROBACTERI... Complete Current Medications Medications (Trade) Dose Ordered Sig/Tay Route PRN Reason Start Time Stop Time Status Last Admin Dose Admin Acetaminophen (Tylenol) 650 mg Q6H PRN ORAL Mild Pain/Temp > 101 11/09/17 21:30 12/09/17 21:29 Fluconazole (Diflucan) 200 mg DAILY ORAL 11/25/17 14:00 12/05/17 13:59 12/01/17 10:01 Folic Acid (Folate) 2 mg DAILY NG 11/22/17 09:00 12/20/17 20:59 12/01/17 10:01 Heparin Sodium (Porcine) (Heparin 5000 units/ml) 5,000 units EVERY 12 HOURS SUBQ 11/10/17 09:00 12/10/17 08:59 12/01/17 10:04 Lansoprazole (Prevacid) 30 mg DAILY NG 11/22/17 09:00 12/22/17 08:59 12/01/17 10:00 Levetiracetam (Keppra) 1,000 mg Q12HR NG 11/28/17 21:00 12/28/17 20:59 12/01/17 10:02 Midodrine (Pro-Amatine) 5 mg THREE TIMES A DAY GT 11/28/17 18:00 12/20/17 17:59 12/01/17 10:00 Ondansetron HCl (Zofran) 4 mg Q4H PRN IVP Nausea & Vomiting 11/09/17 21:30 12/09/17 21:29 Sennosides (Senokot) 1 tab DAILY PRN ORAL Constipation 11/09/17 21:30 12/09/17 21:29 Laboratory Tests 12/01/17 07:50: White Blood Count 6.0, Red Blood Count 2.82L, Hemoglobin 8.3L, Hematocrit 25.9L , Mean Corpuscular Volume 92, Mean Corpuscular Hemoglobin 29.6, Mean Corpuscular Hemoglobin Concent 32.2, Red Cell Distribution Width 16.6H, Platelet Count 301, Mean Platelet Volume 7.3, Neutrophils (%) (Auto) 58.0, Lymphocytes (%) (Auto) 27.3, Monocytes (%) (Auto) 7.9, Eosinophils (%) (Auto) 5.8H, Basophils (%) (Auto) 1.1, Sodium Level 146H, Potassium Level 5.7H, Chloride Level 112H, Carbon Dioxide Level 27, Anion Gap 7, Blood Urea Nitrogen 39H, Creatinine 2.2H, Estimat Glomerular Filtration Rate 23.2, Glucose Level 109H, Calcium Level 9.3 Height (Feet): 5 Height (Inches): 2.00 Weight (Pounds): 132 Objective exam stable abdominal u/s (11/28) noted WILBER GALINDO Dec 01, 2017 10:42
[2017-12-01] MEDS ORDERED: Sodium Polystyrene Sulfonate 15gm Powder GT SCH (10:43)
--- NOTE | 2017-12-01 11:07 | Diagnostic Imaging Report ---
Indication: Dyspnea Technique: One view of the chest Comparison: 11/24/2017 Findings: Interim improvement of previously demonstrated diffuse right lung interstitial disease, although some disease persists in the mid and lower lung. There is some atelectasis at the left lung base. Previously demonstrated left basilar reticular infiltrate appears improved with minimal residual. Pleural spaces remain clear. No new infiltrates. Normal heart size. Suboptimal inspiration. Interim nasogastric tube removal. The top of a nephroureteral stent is seen on the left. Ventriculoperitoneal shunt tubing traverses the right chest Impression: Improved right lung infiltrates, with some persistent disease in the right mid and lower lung Improved persistent faint left basilar reticular infiltrates. Other stable findings as described
[2017-12-01 12:00] VITALS: BP 111/82
--- NOTE | 2017-12-01 12:26 | Nephrology Progress Note ---
Assessment/Plan Problem List: (1) Hypotension (2) Acute renal failure (ARF) (3) Dehydration with hypernatremia (4) Severe sepsis (5) Shock (6) Dehydration, severe Assessment Acute kidney injury, likely on chronic kidney disease. Cr 2.2 today Hypernatremia, with an initial sodium of 177. Na lowering Profound dehydration. improving Shock, likely septic. Hypercalcemia. on presentation Urinary tract infection. Has supraPubic cath History of traumatic brain injury, dementia, and seizure disorder. History of staghorn renal calculi with multiple UTIs, status post Plan albumin and one liter D5 PRN kayexelate Has PEG now K supplements as needed DC IV on tube feeding Albumin bolus PRN KCL, Mag , Phos as needed Antibiotics Monitor renal parameters- Avoid Nephrotoxics Subjective ROS Limited/Unobtainable: No Objective Objective Last 24 Hour Vital Signs Date Time Temp Pulse Resp B/P (MAP) Pulse Ox O2 Delivery O2 Flow Rate FiO2 12/01/17 08:00 Mechanical Ventilator 3.0 12/01/17 08:00 79 12/01/17 08:00 96.4 82 16 96/61 (73) 99 96.4 12/01/17 04:45 85 18 99 12/01/17 04:00 Mechanical Ventilator 3.0 12/01/17 04:00 98.5 83 18 118/77 (91) 96 98.5 12/01/17 04:00 86 12/01/17 03:02 102 26 97 Full Face 30 12/01/17 01:20 95 18 98 Full Face 30 12/01/17 00:00 Mechanical Ventilator 3.0 12/01/17 00:00 98.7 68 20 120/87 (98) 95 98.7 11/30/17 22:38 100 17 96 Full Face 30 11/30/17 20:16 104 18 95 Full Face 30 11/30/17 20:04 Mechanical Ventilator 3.0 11/30/17 20:00 98.0 100 19 117/68 (84) 93 98.0 11/30/17 20:00 100 11/30/17 19:00 93 Nasal Cannula 3.0 32 11/30/17 19:00 Nasal Cannula 3.0 32 11/30/17 16:17 96 11/30/17 16:00 Mechanical Ventilator 3.0 11/30/17 16:00 96.8 94 19 116/73 (87) 98 96.8 11/30/17 13:12 98 Intake and Output 11/30/17 12/01/17 19:00 07:00 Intake Total 2060 ml 1310 ml Output Total 1000 ml 1500 ml Balance 1060 ml -190 ml Free Water 300 ml 300 ml IV Total 1100 ml 350 ml Tube Feeding 660 ml 660 ml Output Urine Total 1000 ml 1500 ml # Bowel Movements 2 5 Laboratory Tests 12/01/17 07:50: White Blood Count 6.0, Red Blood Count 2.82L, Hemoglobin 8.3L, Hematocrit 25.9L , Mean Corpuscular Volume 92, Mean Corpuscular Hemoglobin 29.6, Mean Corpuscular Hemoglobin Concent 32.2, Red Cell Distribution Width 16.6H, Platelet Count 301, Mean Platelet Volume 7.3, Neutrophils (%) (Auto) 58.0, Lymphocytes (%) (Auto) 27.3, Monocytes (%) (Auto) 7.9, Eosinophils (%) (Auto) 5.8H, Basophils (%) (Auto) 1.1, Sodium Level 146H, Potassium Level 5.7H, Chloride Level 112H, Carbon Dioxide Level 27, Anion Gap 7, Blood Urea Nitrogen 39H, Creatinine 2.2H, Estimat Glomerular Filtration Rate 23.2, Glucose Level 109H, Calcium Level 9.3 Height (Feet): 5 Height (Inches): 2.00 Weight (Pounds): 132 General Appearance: no apparent distress Respiratory/Chest: decreased breath sounds Objective no change Parrish Luo MD Dec 01, 2017 12:26
--- NOTE | 2017-12-01 14:51 | Infectious Diseases Prog Note ---
Assessment/Plan Problems: (1) Catheter-associated urinary tract infection Assessment & Plan: with nahed spp , continue fluconazole for 14 days total . EOT 12/06/17 (2) Acute pyelonephritis Assessment & Plan: with MDR Providencia stuartii, and MRSA , suspect due to right ureter stent obstruction, S/P vancomycin , and ertapenem for two weeks total , follow up with urology , may need stent removal . (3) Hydronephrosis of right kidney Assessment & Plan: suspect ureter stent malfunction , urology eval is in progress, may need stent removal (4) Renal failure Assessment & Plan: improving , continue hydration , monitor renal function, avoid nephrotoxics (5) Colonization with VRE (vancomycin-resistant enterococcus) Assessment & Plan: she is colonized by now (6) Diarrhea Assessment & Plan: not due to C diff with negative toxin , continue aggressive hydration Subjective ROS Limited/Unobtainable: Yes Allergies: Coded Allergies: CEFEPIME (Unverified Allergy, Unknown, 11/09/17) Subjective she was lying in bed, awake and responsive , no respiratory distress , a febrile Objective Vital Signs Last 24 Hour Vital Signs Date Time Temp Pulse Resp B/P (MAP) Pulse Ox O2 Delivery O2 Flow Rate FiO2 12/01/17 12:00 96.0 72 20 111/82 (92) 100 96.0 12/01/17 12:00 Mechanical Ventilator 3.0 12/01/17 08:00 Mechanical Ventilator 3.0 12/01/17 08:00 79 12/01/17 08:00 96.4 82 16 96/61 (73) 99 96.4 12/01/17 04:45 85 18 99 12/01/17 04:00 Mechanical Ventilator 3.0 12/01/17 04:00 98.5 83 18 118/77 (91) 96 98.5 12/01/17 04:00 86 12/01/17 03:02 102 26 97 Full Face 30 12/01/17 01:20 95 18 98 Full Face 30 12/01/17 00:00 Mechanical Ventilator 3.0 12/01/17 00:00 98.7 68 20 120/87 (98) 95 98.7 11/30/17 22:38 100 17 96 Full Face 30 11/30/17 20:16 104 18 95 Full Face 30 11/30/17 20:04 Mechanical Ventilator 3.0 11/30/17 20:00 98.0 100 19 117/68 (84) 93 98.0 11/30/17 20:00 100 11/30/17 19:00 93 Nasal Cannula 3.0 32 11/30/17 19:00 Nasal Cannula 3.0 32 11/30/17 16:17 96 11/30/17 16:00 Mechanical Ventilator 3.0 11/30/17 16:00 96.8 94 19 116/73 (87) 98 96.8 Height (Feet): 5 Height (Inches): 2.00 Weight (Pounds): 132 General Appearance: WD/WN, no acute distress HEENT: normocephalic, atraumatic, anicteric, mucous membranes moist, PERRL Respiratory/Chest: chest wall non-tender, normal breath sounds, no respiratory distress, no accessory muscle use, decreased breath sounds Cardiovascular: normal peripheral pulses, normal rate, regular rhythm, no gallop/murmur, no JVD Abdomen: normal bowel sounds, soft, non tender, no organomegaly, non distended , no mass, no scars Extremities: no cyanosis, no clubbing Skin: no rash, no lesions Neurologic/Psychiatric: alert, responsive Lymphatic: no neck adenopathy, no groin adenopathy Musculoskeletal: normal muscle bulk, no effusion Laboratory Tests Test 12/01/17 07:50 White Blood Count 6.0 K/UL (4.8-10.8) Red Blood Count 2.82 M/UL (4.20-5.40) L Hemoglobin 8.3 G/DL (12.0-16.0) L Hematocrit 25.9 % (37.0-47.0) L Mean Corpuscular Volume 92 FL (80-99) Mean Corpuscular Hemoglobin 29.6 PG (27.0-31.0) Mean Corpuscular Hemoglobin Concent 32.2 G/DL (32.0-36.0) Red Cell Distribution Width 16.6 % (11.6-14.8) H Platelet Count 301 K/UL (150-450) Mean Platelet Volume 7.3 FL (6.5-10.1) Neutrophils (%) (Auto) 58.0 % (45.0-75.0) Lymphocytes (%) (Auto) 27.3 % (20.0-45.0) Monocytes (%) (Auto) 7.9 % (1.0-10.0) Eosinophils (%) (Auto) 5.8 % (0.0-3.0) H Basophils (%) (Auto) 1.1 % (0.0-2.0) Sodium Level 146 MMOL/L (136-145) H Potassium Level 5.7 MMOL/L (3.5-5.1) H Chloride Level 112 MMOL/L (98-107) H Carbon Dioxide Level 27 MMOL/L (21-32) Anion Gap 7 mmol/L (5-15) Blood Urea Nitrogen 39 mg/dL (7-18) H Creatinine 2.2 MG/DL (0.55-1.30) H Estimat Glomerular Filtration Rate 23.2 mL/min (>60) Glucose Level 109 MG/DL (74-106) H Calcium Level 9.3 MG/DL (8.5-10.1) Current Medications Medications (Trade) Dose Ordered Sig/Tay Route PRN Reason Start Time Stop Time Status Last Admin Dose Admin Acetaminophen (Tylenol) 650 mg Q6H PRN ORAL Mild Pain/Temp > 101 11/09/17 21:30 12/09/17 21:29 Fluconazole (Diflucan) 200 mg DAILY ORAL 11/25/17 14:00 12/05/17 13:59 12/01/17 10:01 Folic Acid (Folate) 2 mg DAILY NG 11/22/17 09:00 12/20/17 20:59 12/01/17 10:01 Heparin Sodium (Porcine) (Heparin 5000 units/ml) 5,000 units EVERY 12 HOURS SUBQ 11/10/17 09:00 12/10/17 08:59 12/01/17 10:04 Lansoprazole (Prevacid) 30 mg DAILY NG 11/22/17 09:00 12/22/17 08:59 12/01/17 10:00 Levetiracetam (Keppra) 1,000 mg Q12HR NG 11/28/17 21:00 12/28/17 20:59 12/01/17 10:02 Midodrine (Pro-Amatine) 5 mg THREE TIMES A DAY GT 11/28/17 18:00 12/20/17 17:59 12/01/17 13:09 Ondansetron HCl (Zofran) 4 mg Q4H PRN IVP Nausea & Vomiting 11/09/17 21:30 12/09/17 21:29 Sennosides (Senokot) 1 tab DAILY PRN ORAL Constipation 11/09/17 21:30 12/09/17 21:29 Kortney Quiñones M.D. Dec 01, 2017 14:51
[2017-12-01 16:00] VITALS: BP 103/61
--- NOTE | 2017-12-01 19:16 | Neurology Progress Note ---
Interim History Interim History Interim History Ms. Guaman feels "better." She is awake and alert. She waved to me when I entered and exited her room. She is able to say a few words that can be understood. She is able to count fingers in her right field. She is still cognitively impoverished. She is motorically challenged. She has exhibited no clinical seizures. She is being fed through her G-Tube. Review of Systems Neuro Review of Systems Unable to obtain. Objective Physical Exam Last Vital Signs Date Time Temp Pulse Resp B/P (MAP) Pulse Ox O2 Delivery O2 Flow Rate FiO2 12/01/17 16:00 Mechanical Ventilator 3.0 12/01/17 12:00 96.0 72 20 111/82 (92) 100 96.0 12/01/17 08:27 32 Laboratory Tests Test 12/01/17 07:50 White Blood Count 6.0 K/UL (4.8-10.8) Red Blood Count 2.82 M/UL (4.20-5.40) L Hemoglobin 8.3 G/DL (12.0-16.0) L Hematocrit 25.9 % (37.0-47.0) L Mean Corpuscular Volume 92 FL (80-99) Mean Corpuscular Hemoglobin 29.6 PG (27.0-31.0) Mean Corpuscular Hemoglobin Concent 32.2 G/DL (32.0-36.0) Red Cell Distribution Width 16.6 % (11.6-14.8) H Platelet Count 301 K/UL (150-450) Mean Platelet Volume 7.3 FL (6.5-10.1) Neutrophils (%) (Auto) 58.0 % (45.0-75.0) Lymphocytes (%) (Auto) 27.3 % (20.0-45.0) Monocytes (%) (Auto) 7.9 % (1.0-10.0) Eosinophils (%) (Auto) 5.8 % (0.0-3.0) H Basophils (%) (Auto) 1.1 % (0.0-2.0) Sodium Level 146 MMOL/L (136-145) H Potassium Level 5.7 MMOL/L (3.5-5.1) H Chloride Level 112 MMOL/L (98-107) H Carbon Dioxide Level 27 MMOL/L (21-32) Anion Gap 7 mmol/L (5-15) Blood Urea Nitrogen 39 mg/dL (7-18) H Creatinine 2.2 MG/DL (0.55-1.30) H Estimat Glomerular Filtration Rate 23.2 mL/min (>60) Glucose Level 109 MG/DL (74-106) H Calcium Level 9.3 MG/DL (8.5-10.1) Neurologic Exam Objective PHYSICAL EXAMINATION: GENERAL: She is a well-developed and well-nourished lady, lying in bed , in no acute distress. HEAD: Normocephalic with right craniectomy defect. EENT: Examination benign. NECK: No neck rigidity was observed. NEUROLOGICAL EXAMINATION: MENTAL STATUS EXAMINATION: She awake and more alert. She was able to say a few words that could be understood. Further mental status testing was impossible. SPEECH: She was able to say a few words that could be understood. LANGUAGE: Could not be tested. CRANIAL NERVE EXAMINATION: II: She did blink to threat. She was able to count fingers in her right field. III, IV & : The eyes were dysconjugate. External ocular movements were present on oculocephalic maneuvers. The pupils were 3 mm in diameter, equal, round, regular, and reactive sluggishly to light. V & VII: Corneal reflexes were present, but brisker on the right than on the left. VIII: She did respond to sounds and had no nystagmus. IX & X: The gag reflex was absent. IX: Sternocleidomastoids and trapezii did function minimally on applying deep painful stimuli. XII: Tongue in the midline. MOTOR SYSTEM: The tone was increased in both lower extremities with spasticity. The tone was relatively normal in the right upper extremity but was diminished in the left upper extremity. Examination of muscle mass revealed wasting of the left upper and lower extremities and in addition a flexion contracture at the elbow. The examination of power was impossible to perform accurately as she did not move her left side at all and moved her right side minimally. SENSORY EXAMINATION: She responded to deep pain more so on the right side than the left. REFLEXES: 2+ on the left and 2++ on the right at the biceps, triceps, brachioradialis, and knees, 0 at both ankles. The plantar responses were extensor bilaterally. COORDINATION, STANCE & GAIT: Could not be tested. Impression/Recommendations Diagnostic Impression 1. Ms. Yumiko Guaman is a 52-year-old, lady, of unknown handedness, who does have a past history of severe brain trauma with a right-sided craniectomy and significant right brain encephalomalacia. She also has a history of a seizure disorder that is undefined. She has a left plegia and prior episodes of respiratory failure, urinary tract infections, and multiple episodes of sepsis. She was hospitalized on 11/09/2017 for a urinary tract infection associated with sepsis but her mental state improved with treatment of those conditions. on 11/20/17 there was a sudden decline in her level of arousal. 2. She feels "better." She is awake and alert. She waved to me when I entered and exited her room. She is able to say a few more words that can be understood. She is able to count fingers in her right field. She is still cognitively impoverished. She is motorically challenged. She has exhibited no clinical seizures. She is being fed through her G-Tube. 3. On neurological examination at this time, she does demonstrate a right-sided craniectomy. She awake and more alert. She was able to say a few words that can be understood. Further mental status testing was impossible. Language cannot be tested. She does blink to visual threat and counts fingers in her right field. The corneal reflexes are diminished on the left side compared to the right. She has left upper extremity greater than lower extremity contractures and left- sided plegia and significant right-sided hemiparesis. She only responds to deep pain on the right side with minimal withdrawal but not on the left side. The deep tendon reflexes are brisker on the right side compared to the left and she has extensor plantar responses bilaterally. 4. CT scan of the brain without contrast performed on 11/20/2017 revealed a large right convexity craniectomy and extensive underlying temporal and parietal encephalomalacia. There was also encephalomalacia of the right cerebellum. There was a left frontal craniotomy defect with overlying mesh. There was no significant underlying parenchymal abnormality on the left side. She also had right-sided ventriculostomy. No acute pathology was noted. 5. Laboratory data revealed that she was anemic with a hemoglobin of 10.5 G. Her WBC count was 10,000 but she had a left-sided shift with 80% polymorphonuclear leukocytes. The chemistry panel revealed a creatinine elevated to 2.0. The ammonia was minimally elevated at 34. The Vitamin B12 level and TSH were normal. The Folate was minimally low at 3.9. The Urinalysis that was done on 11/09/2017 revealed 3+ leukocyte esterase, 40-60 RBCs and 40-60 WBCs per high-power field. Her latest arterial blood gas revealed a pH of 7.35, pCO2 of 42, and pO2 of 60. 6. The EEG done on 11/21/17 revealed severe generalized cerebral dysfunction and multiple electrographic seizures emanating from the right fronto-central region sometimes lasting al long as 120 seconds. 7. The EEG done on 11/24/17 revealed a continuous electrographic seizure emanating from the right fronto-central area during her entire EEG and severe generalized cerebral dysfunction. 8. The EEG done on 11/30/17 revealed electrographic seizures emanating from the right frontal, central and fronto-central region and moderate generalized cerebral dysfunction. 9. The patient's history, neurological examination, and laboratory data and imaging studies are most compatible with worsening of a toxic metabolic encephalopathy and in addition subclinical electrographic seizures emanating from the right frontal, central and fronto-central region. 10. Her mental state has improved significantly compared to a few days ago and continues to improve with an increase in her anti-seizure medicine dose. Recommendations 1. Continue present management. 2. Continue present therapeutic management. 3. Continue aggressive antibiotic treatment. 4. Continue to correct the patient's toxic metabolic imbalances. 5. Continue Keppra 1500 mg IV q 12 hours. Roseann Barnes M.D., M.S.P.Kathia. ROSEANN BARNES Dec 01, 2017 19:15
[2017-12-01 20:00] VITALS: BP 111/67
--- NOTE | 2017-12-01 20:03 | Pulmonology Progress Note ---
Assessment/Plan Assessment/Plan ASSESSMENT: The patient is a 52-year-old [facility] resident with history of dementia, traumatic brain injury, recurrent staghorn calculi, recurrent urinary tract infection, suprapubic catheter, prior trach, seizure disorder, nonverbal at baseline, presenting initially for desaturation, but now is stable respiratory dynamics, but concerned for sepsis and profound dehydration with acute kidney injury, anion gap, metabolic acidosis, lactic acidosis, and hemoconcentration all likely secondary to a source. PROBLEM LIST: 1. SIRS/sepsis. 2. Shock, likely septic. 3. Profound dehydration. 4. Hypernatremia, with an initial sodium of 177. 5. Anion gap metabolic acidosis, lactic acidosis. 6. Acute kidney injury, likely on chronic kidney disease. 7. Hypercalcemia. 8. Urinary tract infection. 9. History of traumatic brain injury, dementia, and seizure disorder. 10. History of prior tracheostomy, status post takedown. 11. History of staghorn renal calculi with multiple UTIs, status post suprapubic catheter placement. 12. [facility] resident. 13. Nonverbal at baseline. 14. Bed-bound. 15. Full Code. TREATMENT PLAN: 1. IVF per renal, continue midodrine, replete free water 2. GTF's 3. PRN O2, PRN HHN's 4. Flucon per ID 5. F/U recs 6. Monitor MS, F/U neuro recs 7. Heparin subcutaneous for DVT prophylaxis. 8. The patient is a Full Code, POLST reviewed by myself, we continue to discuss goals of care further ---> MULTIPLE MESSAGES LEFT FOR SON LUCÍA, NO CALL BACK , BIOETHICS EVAL NOTED, PALLIATIVE CARE CONSULT APPRECIATED Subjective Allergies: Coded Allergies: CEFEPIME (Unverified Allergy, Unknown, 11/09/17) Subjective More interactive, CXR better, stable O2 needs, dispo held 2/2 BiPAP, marcus TF's Awake more alert, no cough, no SOB no F/C Objective Last 24 Hour Vital Signs Date Time Temp Pulse Resp B/P (MAP) Pulse Ox O2 Delivery O2 Flow Rate FiO2 12/01/17 16:00 Mechanical Ventilator 3.0 12/01/17 16:00 75 12/01/17 16:00 95.7 71 20 103/61 (75) 100 95.7 12/01/17 12:00 96.0 72 20 111/82 (92) 100 96.0 12/01/17 12:00 Mechanical Ventilator 3.0 12/01/17 12:00 73 12/01/17 08:27 100 Nasal Cannula 3.0 32 12/01/17 08:27 Nasal Cannula 3.0 32 12/01/17 08:00 Mechanical Ventilator 3.0 12/01/17 08:00 79 12/01/17 08:00 96.4 82 16 96/61 (73) 99 96.4 12/01/17 04:45 85 18 99 12/01/17 04:00 Mechanical Ventilator 3.0 12/01/17 04:00 98.5 83 18 118/77 (91) 96 98.5 12/01/17 04:00 86 12/01/17 03:02 102 26 97 Full Face 30 12/01/17 01:20 95 18 98 Full Face 30 12/01/17 00:00 Mechanical Ventilator 3.0 12/01/17 00:00 98.7 68 20 120/87 (98) 95 98.7 11/30/17 22:38 100 17 96 Full Face 30 11/30/17 20:16 104 18 95 Full Face 30 11/30/17 20:04 Mechanical Ventilator 3.0 Intake and Output 11/30/17 12/01/17 19:00 07:00 Intake Total 2060 ml 1310 ml Output Total 1000 ml 1500 ml Balance 1060 ml -190 ml Free Water 300 ml 300 ml IV Total 1100 ml 350 ml Tube Feeding 660 ml 660 ml Output Urine Total 1000 ml 1500 ml # Bowel Movements 2 5 General Appearance: no acute distress, cachetic HEENT: normocephalic, atraumatic, anicteric, mucous membranes moist Respiratory/Chest: chest wall non-tender, lungs clear, normal breath sounds, no respiratory distress, no accessory muscle use Cardiovascular: normal peripheral pulses, normal rate, regular rhythm Abdomen: normal bowel sounds, soft, non tender, no organomegaly, non distended , no mass, other - SPC, GT Extremities: no cyanosis, no clubbing, no edema, other - contractures Laboratory Tests 12/01/17 07:50: White Blood Count 6.0, Red Blood Count 2.82L, Hemoglobin 8.3L, Hematocrit 25.9L , Mean Corpuscular Volume 92, Mean Corpuscular Hemoglobin 29.6, Mean Corpuscular Hemoglobin Concent 32.2, Red Cell Distribution Width 16.6H, Platelet Count 301, Mean Platelet Volume 7.3, Neutrophils (%) (Auto) 58.0, Lymphocytes (%) (Auto) 27.3, Monocytes (%) (Auto) 7.9, Eosinophils (%) (Auto) 5.8H, Basophils (%) (Auto) 1.1, Sodium Level 146H, Potassium Level 5.7H, Chloride Level 112H, Carbon Dioxide Level 27, Anion Gap 7, Blood Urea Nitrogen 39H, Creatinine 2.2H, Estimat Glomerular Filtration Rate 23.2, Glucose Level 109H, Calcium Level 9.3 Current Medications Medications (Trade) Dose Ordered Sig/Tay Route PRN Reason Start Time Stop Time Status Last Admin Dose Admin Acetaminophen (Tylenol) 650 mg Q6H PRN ORAL Mild Pain/Temp > 101 11/09/17 21:30 12/09/17 21:29 Fluconazole (Diflucan) 200 mg DAILY ORAL 11/25/17 14:00 12/05/17 13:59 12/01/17 10:01 Folic Acid (Folate) 2 mg DAILY NG 11/22/17 09:00 12/20/17 20:59 12/01/17 10:01 Heparin Sodium (Porcine) (Heparin 5000 units/ml) 5,000 units EVERY 12 HOURS SUBQ 11/10/17 09:00 12/10/17 08:59 12/01/17 10:04 Lansoprazole (Prevacid) 30 mg DAILY NG 11/22/17 09:00 12/22/17 08:59 12/01/17 10:00 Levetiracetam (Keppra) 1,000 mg Q12HR NG 11/28/17 21:00 12/28/17 20:59 12/01/17 10:02 Midodrine (Pro-Amatine) 5 mg THREE TIMES A DAY GT 11/28/17 18:00 12/20/17 17:59 12/01/17 17:46 Ondansetron HCl (Zofran) 4 mg Q4H PRN IVP Nausea & Vomiting 11/09/17 21:30 12/09/17 21:29 Sennosides (Senokot) 1 tab DAILY PRN ORAL Constipation 11/09/17 21:30 12/09/17 21:29 Jose Montalvo MD Dec 01, 2017 20:03
[2017-12-01] MEDS ORDERED: Albuterol/Ipratropium 3ml neb HHN PRN (20:15)
[2017-12-02] VITALS: BP 112/66
--- NOTE | 2017-12-02 02:15 | Electroencephalogram ---
DATE OF PROCEDURE: 11/30/2017 REQUESTING PHYSICIAN: Jose Montalvo M.D. READING PHYSICIAN: Surya Ramos M.D. PROCEDURE PERFORMED: Electroencephalogram. HISTORY: This EEG was performed on a 52-year-old lady with severe brain trauma with A right-sided craniectomy and left-sided craniotomy. The patient has in the past exhibited continuous electrographic seizures emanating from her right brain. Her dose of anticonvulsant was increased and this EEG was performed to evaluate the patient for ongoing ictal or interictal phenomena. TECHNICAL NOTE: This EEG was performed on a [employer] with electrodes placed on the scalp according to the International 10-20 system. [id number] and [id number] montages were used. The EEG was technically satisfactory and was performed in the awake and drowsy states. OBSERVATIONS: In the best awake state, the background activity consisted of 4-6 Hz theta activity over the left hemisphere and 4-5 Hz theta with intermixed delta activity over the right hemisphere. Drowsiness was characterized by slowing of the background in the 4-5 Hz theta range with intermixed delta frequencies over the left hemisphere, and 2-2.5 Hz delta with intermixed theta activity over the right hemisphere. Multiple electrographic seizures emanating from the F4, C4, and at times F4-C4 electrodes were seen. These electrographic seizures were not associated with any clinical correlate. IMPRESSION: This is an abnormal EEG characterized by, 1. Slowing of the background in the theta range over the left hemisphere and theta and delta range over the right hemisphere during the reportedly awake state. 2. The presence of multiple electrographic seizures emanating from the F4, C4, and F4-C4 electrodes. COMMENT: The study is consistent with, 1. Generalized cerebral dysfunction compatible with generalized encephalopathy of a moderate degree. 2. Right greater than left hemispheric dysfunction. 3. Multiple electrographic seizures emanating from the right frontal, right central, and right fronto-central regions. Surya Ramos M.D., M.S.P.H. DR: BURT JOB#: [id number] [facility]ena
[2017-12-02 04:00] VITALS: BP 117/77
[2017-12-02 07:09] LABS: EOSINOPHILS % (AUTO) 6.2 % (0.0-3.0); HEMATOCRIT 25.8 % (37.0-47.0); HEMOGLOBIN 8.6 G/DL (12.0-16.0); LYMPHOCYTES % (AUTO) 26.3 % (20.0-45.0); MEAN CORPUSCULAR VOLUME 92 FL (80-99); MONOCYTES % (AUTO) 6.5 % (1.0-10.0); PLATELET COUNT 328 K/UL (150-450); WHITE BLOOD COUNT 5.5 K/UL (4.8-10.8)
[2017-12-02 07:22] LABS: ANION GAP 7 mmol/L (5-15); BLOOD UREA NITROGEN 45 mg/dL (7-18); CALCIUM 9.8 MG/DL (8.5-10.1); CARBON DIOXIDE 30 MMOL/L (21-32); CHLORIDE 111 MMOL/L (98-107); CREATININE 2.2 MG/DL (0.55-1.30); POTASSIUM 4.2 MMOL/L (3.5-5.1); SODIUM 148 MMOL/L (136-145)
--- NOTE | 2017-12-02 07:28 | General Progress Note ---
Assessment/Plan Assessment/Plan #. Anemia of chronic disease -- workup has been reviewed from before and noted to have high ferritin 1500, other labs consistent with ACD --> monitor and started on folic acid daily --> hgb goal >7, transfuse prn basis --> heparin 5k sq tid as ppx #. 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 She also has a history of a seizure disorder that is undefined. --> appreciate neuro recs # Respiratory failure and now s/p takedown --> appreciate pulm recs # Urinary tract infection, and multiple episodes of sepsis. --> s/p abx treatment and seen by ID # Hydronephrosis r kidney --> may need stent exchange per uro, appreciate their recs # Dysphagia s/p peg tube --> getting gtube feeds # Trace right sided pleural effusion # Remains critically ill, bioethics/hospice services consulted --> pending family meeting, reviewed pulm recs Appreciate consultation greatly! Subjective HEENT: Denies: no symptoms, eye pain, blurred vision, tearing, double vision, ear pain, ear discharge, nose pain, nose congestion, throat pain, throat swelling, mouth pain, mouth swelling, other Cardiovascular: Denies: no symptoms, chest pain, edema, irregular heart rate, lightheadedness, palpitations, syncope, other Respiratory: Denies: no symptoms, cough, orthopnea, shortness of breath, SOB with excertion, SOB at rest, sputum, stridor, wheezing, other Gastrointestinal/Abdominal: Denies: no symptoms, abdomen distended, abdominal pain, black stools, tarry stools, blood in stool, constipated, diarrhea, difficulty swallowing, nausea, poor appetite, poor fluid intake, rectal bleeding , vomiting, other Genitourinary: Denies: no symptoms, burning, discharge, frequency, flank pain, hematuria, incontinence, pain, urgency, other Neurologic/Psychiatric: Denies: no symptoms, anxiety, depressed, emotional problems, headache, numbness, paresthesia, pre-existing deficit, seizure, tingling, tremors, weakness, other Endocrine: Denies: no symptoms, excessive sweating, flushing, intolerance to cold, intolerance to heat, increased hunger, increased thirst, increased urine, unexplained weight gain, unexplained weight loss, other Hematologic/Lymphatic: Denies: no symptoms, anemia, easy bleeding, easy bruising, other Allergies: Coded Allergies: CEFEPIME (Unverified Allergy, Unknown, 11/09/17) Subjective gtube feeds ongoing, no events currently off bipap, on NC, feeling better Objective Last 24 Hour Vital Signs Date Time Temp Pulse Resp B/P (MAP) Pulse Ox O2 Delivery O2 Flow Rate FiO2 12/02/17 05:11 84 95 21 12/02/17 04:05 92 12/02/17 04:00 Mechanical Ventilator 3.0 12/02/17 04:00 96.5 97 20 117/77 (90) 99 96.5 12/02/17 00:00 69 12/02/17 00:00 96.7 70 20 112/66 (81) 100 96.7 12/02/17 00:00 Mechanical Ventilator 3.0 12/01/17 22:00 80 92 2.0 28 12/01/17 20:00 95.9 76 16 111/67 (82) 98 95.9 12/01/17 20:00 85 12/01/17 20:00 Nasal Cannula 2.0 28 12/01/17 20:00 Mechanical Ventilator 3.0 12/01/17 20:00 93 Nasal Cannula 2.0 28 12/01/17 16:00 Mechanical Ventilator 3.0 12/01/17 16:00 75 12/01/17 16:00 95.7 71 20 103/61 (75) 100 95.7 12/01/17 12:00 96.0 72 20 111/82 (92) 100 96.0 12/01/17 12:00 Mechanical Ventilator 3.0 12/01/17 12:00 73 12/01/17 08:27 100 Nasal Cannula 3.0 32 12/01/17 08:27 Nasal Cannula 3.0 32 12/01/17 08:00 Mechanical Ventilator 3.0 12/01/17 08:00 79 12/01/17 08:00 96.4 82 16 96/61 (73) 99 96.4 Intake and Output 12/01/17 12/02/17 19:00 07:00 Intake Total 220 ml 830 ml Output Total 1000 ml 1200 ml Balance -780 ml -370 ml Free Water 100 ml 110 ml Tube Feeding 120 ml 720 ml Output Urine Total 1000 ml 1200 ml # Bowel Movements 4 1 Laboratory Tests 12/01/17 07:50: White Blood Count 6.0, Red Blood Count 2.82L, Hemoglobin 8.3L, Hematocrit 25.9L , Mean Corpuscular Volume 92, Mean Corpuscular Hemoglobin 29.6, Mean Corpuscular Hemoglobin Concent 32.2, Red Cell Distribution Width 16.6H, Platelet Count 301, Mean Platelet Volume 7.3, Neutrophils (%) (Auto) 58.0, Lymphocytes (%) (Auto) 27.3, Monocytes (%) (Auto) 7.9, Eosinophils (%) (Auto) 5.8H, Basophils (%) (Auto) 1.1, Sodium Level 146H, Potassium Level 5.7H, Chloride Level 112H, Carbon Dioxide Level 27, Anion Gap 7, Blood Urea Nitrogen 39H, Creatinine 2.2H, Estimat Glomerular Filtration Rate 23.2, Glucose Level 109H, Calcium Level 9.3 12/02/17 06:47: White Blood Count 5.5, Red Blood Count 2.80L, Hemoglobin 8.6L, Hematocrit 25.8L , Mean Corpuscular Volume 92, Mean Corpuscular Hemoglobin 30.6, Mean Corpuscular Hemoglobin Concent 33.2, Red Cell Distribution Width 17.0H, Platelet Count 328, Mean Platelet Volume 6.6, Neutrophils (%) (Auto) 60.0, Lymphocytes (%) (Auto) 26.3, Monocytes (%) (Auto) 6.5, Eosinophils (%) (Auto) 6.2H, Basophils (%) (Auto) 1.0, Sodium Level 148H, Potassium Level 4.2, Chloride Level 111H, Carbon Dioxide Level 30, Anion Gap 7, Blood Urea Nitrogen 45H, Creatinine 2.2H, Estimat Glomerular Filtration Rate 23.2, Glucose Level 113H, Calcium Level 9.8 Height (Feet): 5 Height (Inches): 2.00 Weight (Pounds): 132 General Appearance: no apparent distress EENT: TMs normal Neck: normal alignment Cardiovascular: regular rhythm Respiratory/Chest: lungs clear Abdomen: non tender Extremities: normal inspection Edema: no edema noted Leg (L), no edema noted Leg (R) Edema: mild edema Neurologic: abnormal gait Dawit Mcclendon MD Dec 02, 2017 07:28
[2017-12-02 08:00] VITALS: BP 109/70
[2017-12-02] MEDS: levETIRAcetam 500mg/5ml Liquid NG SCH (09:58)
[2017-12-02] MEDS: Fluconazole 100mg tab ORAL SCH (09:59)
[2017-12-02] MEDS: Heparin 5000 units/ml inj SUBQ SCH (10:03)
--- NOTE | 2017-12-02 10:36 | Urology Progress Note ---
Assessment/Plan Assessment/Plan 1. History of hydronephrosis that is chronic. 2. Renal insufficiency, acute on chronic, labile. 3. Hematuria. 4. Pyuria/UTI/colonized. 5. Proteinuria. 6. Urinary retention with chronic suprapubic tube. 7. Neurogenic bladder. sp tube indwelling, last exchanged 11/18 hand irrigated, patent abx as ordered, diflucan monitor renal fxn need old recs indwelling ureteral stents can be addressed by pt's outside urologist once medically more stable no sig renal obst noted on last u/s Subjective Allergies: Coded Allergies: CEFEPIME (Unverified Allergy, Unknown, 11/09/17) Subjective all noted Objective Last 24 Hour Vital Signs Date Time Temp Pulse Resp B/P (MAP) Pulse Ox O2 Delivery O2 Flow Rate FiO2 12/02/17 08:00 96.1 72 22 109/70 (83) 96 96.1 12/02/17 07:55 Nasal Cannula 2.0 28 12/02/17 07:55 95 Nasal Cannula 2.0 28 12/02/17 07:54 90 12/02/17 05:11 84 95 21 12/02/17 04:05 92 12/02/17 04:00 Mechanical Ventilator 3.0 12/02/17 04:00 96.5 97 20 117/77 (90) 99 96.5 12/02/17 00:00 69 12/02/17 00:00 96.7 70 20 112/66 (81) 100 96.7 12/02/17 00:00 Mechanical Ventilator 3.0 12/01/17 22:00 80 92 2.0 28 12/01/17 20:00 95.9 76 16 111/67 (82) 98 95.9 12/01/17 20:00 85 12/01/17 20:00 Nasal Cannula 2.0 28 12/01/17 20:00 Mechanical Ventilator 3.0 12/01/17 20:00 93 Nasal Cannula 2.0 28 12/01/17 16:00 Mechanical Ventilator 3.0 12/01/17 16:00 75 12/01/17 16:00 95.7 71 20 103/61 (75) 100 95.7 12/01/17 12:00 96.0 72 20 111/82 (92) 100 96.0 12/01/17 12:00 Mechanical Ventilator 3.0 12/01/17 12:00 73 Intake and Output 12/01/17 12/02/17 19:00 07:00 Intake Total 220 ml 830 ml Output Total 1000 ml 1200 ml Balance -780 ml -370 ml Free Water 100 ml 110 ml Tube Feeding 120 ml 720 ml Output Urine Total 1000 ml 1200 ml # Bowel Movements 4 1 Microbiology Date/Time Source Procedure Growth Status 11/13/17 15:10 Blood Blood Culture - Final NO GROWTH AFTER 5 DAYS Complete 11/09/17 20:25 Nasal Nares MRSA Culture - Final Staphylococcus Aureus - Mrsa Complete 11/21/17 14:30 Stool Clostridium difficile Toxin Assay - Final Complete 11/20/17 19:14 Urine,Clean Catch Urine Culture - Final Amy Albicans Complete 11/10/17 20:25 Rectum - Final NO CARBAPENEM-RESISTANT ENTEROBACTERI... Complete Current Medications Medications (Trade) Dose Ordered Sig/Tay Route PRN Reason Start Time Stop Time Status Last Admin Dose Admin Acetaminophen (Tylenol) 650 mg Q6H PRN ORAL Mild Pain/Temp > 101 11/09/17 21:30 12/09/17 21:29 Albuterol/ Ipratropium (Albuterol/ Ipratropium) 3 ml Q4H PRN HHN Shortness of Breath 12/01/17 20:15 12/06/17 20:14 Fluconazole (Diflucan) 200 mg DAILY ORAL 11/25/17 14:00 12/05/17 13:59 12/02/17 09:59 Folic Acid (Folate) 2 mg DAILY NG 11/22/17 09:00 12/20/17 20:59 12/02/17 09:59 Heparin Sodium (Porcine) (Heparin 5000 units/ml) 5,000 units EVERY 12 HOURS SUBQ 11/10/17 09:00 12/10/17 08:59 12/02/17 10:03 Lansoprazole (Prevacid) 30 mg DAILY NG 11/22/17 09:00 12/22/17 08:59 12/02/17 09:58 Levetiracetam (Keppra) 1,000 mg Q12HR NG 11/28/17 21:00 12/28/17 20:59 12/02/17 09:58 Midodrine (Pro-Amatine) 5 mg THREE TIMES A DAY GT 11/28/17 18:00 12/20/17 17:59 10/2/18 09:58 Ondansetron HCl (Zofran) 4 mg Q4H PRN IVP Nausea & Vomiting 11/09/17 21:30 12/09/17 21:29 Sennosides (Senokot) 1 tab DAILY PRN ORAL Constipation 11/09/17 21:30 12/09/17 21:29 Laboratory Tests 12/02/17 06:47: White Blood Count 5.5, Red Blood Count 2.80L, Hemoglobin 8.6L, Hematocrit 25.8L , Mean Corpuscular Volume 92, Mean Corpuscular Hemoglobin 30.6, Mean Corpuscular Hemoglobin Concent 33.2, Red Cell Distribution Width 17.0H, Platelet Count 328, Mean Platelet Volume 6.6, Neutrophils (%) (Auto) 60.0, Lymphocytes (%) (Auto) 26.3, Monocytes (%) (Auto) 6.5, Eosinophils (%) (Auto) 6.2H, Basophils (%) (Auto) 1.0, Sodium Level 148H, Potassium Level 4.2, Chloride Level 111H, Carbon Dioxide Level 30, Anion Gap 7, Blood Urea Nitrogen 45H, Creatinine 2.2H, Estimat Glomerular Filtration Rate 23.2, Glucose Level 113H, Calcium Level 9.8 Height (Feet): 5 Height (Inches): 2.00 Weight (Pounds): 132 Objective exam stable abdominal u/s (11/28) noted WILBER GALINDO Dec 02, 2017 10:36
--- NOTE | 2017-12-02 13:22 | Nephrology Progress Note ---
Assessment/Plan Problem List: (1) Hypotension (2) Acute renal failure (ARF) (3) Dehydration with hypernatremia (4) Severe sepsis (5) Shock (6) Dehydration, severe Assessment Acute kidney injury, likely on chronic kidney disease. Cr 2.2 today Hypernatremia, with an initial sodium of 177. Na lowering Profound dehydration. improving Shock, likely septic. Hypercalcemia. on presentation Urinary tract infection. Has supraPubic cath History of traumatic brain injury, dementia, and seizure disorder. History of staghorn renal calculi with multiple UTIs, status post Plan PRN kayexelate Has PEG now tube feeding Albumin bolus PRN KCL, Mag , Phos as needed Antibiotics per iD Monitor renal parameters- Avoid Nephrotoxics Dc planning Subjective ROS Limited/Unobtainable: No Constitutional: Reports: malaise Objective Objective Last 24 Hour Vital Signs Date Time Temp Pulse Resp B/P (MAP) Pulse Ox O2 Delivery O2 Flow Rate FiO2 12/02/17 08:00 96.1 72 22 109/70 (83) 96 96.1 12/02/17 07:55 Nasal Cannula 2.0 28 12/02/17 07:55 95 Nasal Cannula 2.0 28 12/02/17 07:54 90 12/02/17 05:11 84 95 21 12/02/17 04:05 92 12/02/17 04:00 Mechanical Ventilator 3.0 12/02/17 04:00 96.5 97 20 117/77 (90) 99 96.5 12/02/17 00:00 69 12/02/17 00:00 96.7 70 20 112/66 (81) 100 96.7 12/02/17 00:00 Mechanical Ventilator 3.0 12/01/17 22:00 80 92 2.0 28 12/01/17 20:00 95.9 76 16 111/67 (82) 98 95.9 12/01/17 20:00 85 12/01/17 20:00 Nasal Cannula 2.0 28 12/01/17 20:00 Mechanical Ventilator 3.0 12/01/17 20:00 93 Nasal Cannula 2.0 28 12/01/17 16:00 Mechanical Ventilator 3.0 12/01/17 16:00 75 12/01/17 16:00 95.7 71 20 103/61 (75) 100 95.7 Intake and Output 12/01/17 12/02/17 19:00 07:00 Intake Total 220 ml 830 ml Output Total 1000 ml 1200 ml Balance -780 ml -370 ml Free Water 100 ml 110 ml Tube Feeding 120 ml 720 ml Output Urine Total 1000 ml 1200 ml # Bowel Movements 4 1 Laboratory Tests 12/02/17 06:47: White Blood Count 5.5, Red Blood Count 2.80L, Hemoglobin 8.6L, Hematocrit 25.8L , Mean Corpuscular Volume 92, Mean Corpuscular Hemoglobin 30.6, Mean Corpuscular Hemoglobin Concent 33.2, Red Cell Distribution Width 17.0H, Platelet Count 328, Mean Platelet Volume 6.6, Neutrophils (%) (Auto) 60.0, Lymphocytes (%) (Auto) 26.3, Monocytes (%) (Auto) 6.5, Eosinophils (%) (Auto) 6.2H, Basophils (%) (Auto) 1.0, Sodium Level 148H, Potassium Level 4.2, Chloride Level 111H, Carbon Dioxide Level 30, Anion Gap 7, Blood Urea Nitrogen 45H, Creatinine 2.2H, Estimat Glomerular Filtration Rate 23.2, Glucose Level 113H, Calcium Level 9.8 Height (Feet): 5 Height (Inches): 2.00 Weight (Pounds): 132 General Appearance: other - more responsive Neck: limited range of motion Cardiovascular: normal rate Respiratory/Chest: decreased breath sounds Abdomen: soft Objective no change Parrish Luo MD Dec 02, 2017 13:22
--- NOTE | 2017-12-02 13:29 | GI Progress Note ---
Assessment/Plan Problems: (1) Electrolyte imbalance ICD Codes: E87.8 - Other disorders of electrolyte and fluid balance, not elsewhere classified SNOMED: 832003626 (2) Encounter for PEG (percutaneous endoscopic gastrostomy) ICD Codes: Z43.1 - Encounter for attention to gastrostomy SNOMED: 053189979, 148379020 (3) Dehydration ICD Codes: E86.0 - Dehydration SNOMED: 15628532 (4) Dehydration, severe ICD Codes: E86.0 - Dehydration SNOMED: 583863006 Status: stable Status Narrative Discussed with Dr. Chan. Assessment/Plan s/p PEG GTFs to goal electrolyte correction per Nephro ppi bowel regime fu labs dc planning The patient was seen and examined at bedside and all new and available data was reviewed in the patients chart. I agree with the above findings, impression and plan. (Patient seen earlier today. Signature stamp does not reflect patient encounter time.). - Laith Chan MD Subjective Subjective limited Objective Last 24 Hour Vital Signs Date Time Temp Pulse Resp B/P (MAP) Pulse Ox O2 Delivery O2 Flow Rate FiO2 12/02/17 08:00 96.1 72 22 109/70 (83) 96 96.1 12/02/17 07:55 Nasal Cannula 2.0 28 12/02/17 07:55 95 Nasal Cannula 2.0 28 12/02/17 07:54 90 12/02/17 05:11 84 95 21 12/02/17 04:05 92 12/02/17 04:00 Mechanical Ventilator 3.0 12/02/17 04:00 96.5 97 20 117/77 (90) 99 96.5 12/02/17 00:00 69 12/02/17 00:00 96.7 70 20 112/66 (81) 100 96.7 12/02/17 00:00 Mechanical Ventilator 3.0 12/01/17 22:00 80 92 2.0 28 12/01/17 20:00 95.9 76 16 111/67 (82) 98 95.9 12/01/17 20:00 85 12/01/17 20:00 Nasal Cannula 2.0 28 12/01/17 20:00 Mechanical Ventilator 3.0 12/01/17 20:00 93 Nasal Cannula 2.0 28 12/01/17 16:00 Mechanical Ventilator 3.0 12/01/17 16:00 75 12/01/17 16:00 95.7 71 20 103/61 (75) 100 95.7 Intake and Output 12/01/17 12/02/17 19:00 07:00 Intake Total 220 ml 830 ml Output Total 1000 ml 1200 ml Balance -780 ml -370 ml Free Water 100 ml 110 ml Tube Feeding 120 ml 720 ml Output Urine Total 1000 ml 1200 ml # Bowel Movements 4 1 Laboratory Tests Test 12/02/17 06:47 White Blood Count 5.5 K/UL (4.8-10.8) Red Blood Count 2.80 M/UL (4.20-5.40) L Hemoglobin 8.6 G/DL (12.0-16.0) L Hematocrit 25.8 % (37.0-47.0) L Mean Corpuscular Volume 92 FL (80-99) Mean Corpuscular Hemoglobin 30.6 PG (27.0-31.0) Mean Corpuscular Hemoglobin Concent 33.2 G/DL (32.0-36.0) Red Cell Distribution Width 17.0 % (11.6-14.8) H Platelet Count 328 K/UL (150-450) Mean Platelet Volume 6.6 FL (6.5-10.1) Neutrophils (%) (Auto) 60.0 % (45.0-75.0) Lymphocytes (%) (Auto) 26.3 % (20.0-45.0) Monocytes (%) (Auto) 6.5 % (1.0-10.0) Eosinophils (%) (Auto) 6.2 % (0.0-3.0) H Basophils (%) (Auto) 1.0 % (0.0-2.0) Sodium Level 148 MMOL/L (136-145) H Potassium Level 4.2 MMOL/L (3.5-5.1) Chloride Level 111 MMOL/L (98-107) H Carbon Dioxide Level 30 MMOL/L (21-32) Anion Gap 7 mmol/L (5-15) Blood Urea Nitrogen 45 mg/dL (7-18) H Creatinine 2.2 MG/DL (0.55-1.30) H Estimat Glomerular Filtration Rate 23.2 mL/min (>60) Glucose Level 113 MG/DL (74-106) H Calcium Level 9.8 MG/DL (8.5-10.1) Height (Feet): 5 Height (Inches): 2.00 Weight (Pounds): 132 General Appearance: no apparent distress Cardiovascular: normal rate Respiratory/Chest: normal breath sounds, no respiratory distress Abdominal Exam: soft, GT site - c/d/i Extremities: non-tender Olivia Lubin NP Dec 02, 2017 13:28
--- NOTE | 2017-12-02 16:30 | Infectious Diseases Prog Note ---
Assessment/Plan Problems: (1) Catheter-associated urinary tract infection Assessment & Plan: with nahed spp , continue fluconazole for 14 days total . EOT 12/06/17 (2) Acute pyelonephritis Assessment & Plan: with MDR Providencia stuartii, and MRSA , suspect due to right ureter stent obstruction, S/P vancomycin , and ertapenem for two weeks total , follow up with urology , may need stent removal . (3) Hydronephrosis of right kidney Assessment & Plan: suspect ureter stent malfunction , urology eval is in progress, may need stent removal (4) Renal failure Assessment & Plan: improving , continue hydration , monitor renal function, avoid nephrotoxics (5) Colonization with VRE (vancomycin-resistant enterococcus) Assessment & Plan: she is colonized by now (6) Diarrhea Assessment & Plan: not due to C diff with negative toxin , encourage hydration time of the encounter doesn't reflect time patient was seen Subjective ROS Limited/Unobtainable: Yes Allergies: Coded Allergies: CEFEPIME (Unverified Allergy, Unknown, 11/09/17) Subjective she was lying in bed, awake and comfortable, responsive to verbal commands , no respiratory distress , a febrile Objective Vital Signs Last 24 Hour Vital Signs Date Time Temp Pulse Resp B/P (MAP) Pulse Ox O2 Delivery O2 Flow Rate FiO2 12/02/17 08:00 Mechanical Ventilator 3.0 12/02/17 08:00 96.1 72 22 109/70 (83) 96 96.1 12/02/17 07:55 Nasal Cannula 2.0 28 12/02/17 07:55 95 Nasal Cannula 2.0 28 12/02/17 07:54 90 12/02/17 05:11 84 95 21 12/02/17 04:05 92 12/02/17 04:00 Mechanical Ventilator 3.0 12/02/17 04:00 96.5 97 20 117/77 (90) 99 96.5 12/02/17 00:00 69 12/02/17 00:00 96.7 70 20 112/66 (81) 100 96.7 12/02/17 00:00 Mechanical Ventilator 3.0 12/01/17 22:00 80 92 2.0 28 12/01/17 20:00 95.9 76 16 111/67 (82) 98 95.9 12/01/17 20:00 85 12/01/17 20:00 Nasal Cannula 2.0 28 12/01/17 20:00 Mechanical Ventilator 3.0 12/01/17 20:00 93 Nasal Cannula 2.0 28 Height (Feet): 5 Height (Inches): 2.00 Weight (Pounds): 132 General Appearance: WD/WN, no acute distress HEENT: normocephalic, atraumatic, anicteric, mucous membranes moist, PERRL, EOMI, pharynx normal, supple, no JVD Respiratory/Chest: chest wall non-tender, lungs clear, normal breath sounds, no respiratory distress, no accessory muscle use Cardiovascular: normal peripheral pulses, normal rate, regular rhythm, no gallop/murmur, no JVD Abdomen: normal bowel sounds, soft, non tender, no organomegaly, non distended , no mass, no scars Extremities: no cyanosis, no clubbing Skin: no rash, no lesions, no ulcers Neurologic/Psychiatric: alert, responsive Lymphatic: no neck adenopathy, no groin adenopathy Musculoskeletal: normal muscle bulk, no effusion Laboratory Tests Test 12/02/17 06:47 White Blood Count 5.5 K/UL (4.8-10.8) Red Blood Count 2.80 M/UL (4.20-5.40) L Hemoglobin 8.6 G/DL (12.0-16.0) L Hematocrit 25.8 % (37.0-47.0) L Mean Corpuscular Volume 92 FL (80-99) Mean Corpuscular Hemoglobin 30.6 PG (27.0-31.0) Mean Corpuscular Hemoglobin Concent 33.2 G/DL (32.0-36.0) Red Cell Distribution Width 17.0 % (11.6-14.8) H Platelet Count 328 K/UL (150-450) Mean Platelet Volume 6.6 FL (6.5-10.1) Neutrophils (%) (Auto) 60.0 % (45.0-75.0) Lymphocytes (%) (Auto) 26.3 % (20.0-45.0) Monocytes (%) (Auto) 6.5 % (1.0-10.0) Eosinophils (%) (Auto) 6.2 % (0.0-3.0) H Basophils (%) (Auto) 1.0 % (0.0-2.0) Sodium Level 148 MMOL/L (136-145) H Potassium Level 4.2 MMOL/L (3.5-5.1) Chloride Level 111 MMOL/L (98-107) H Carbon Dioxide Level 30 MMOL/L (21-32) Anion Gap 7 mmol/L (5-15) Blood Urea Nitrogen 45 mg/dL (7-18) H Creatinine 2.2 MG/DL (0.55-1.30) H Estimat Glomerular Filtration Rate 23.2 mL/min (>60) Glucose Level 113 MG/DL (74-106) H Calcium Level 9.8 MG/DL (8.5-10.1) Current Medications Medications (Trade) Dose Ordered Sig/Tay Route PRN Reason Start Time Stop Time Status Last Admin Dose Admin Acetaminophen (Tylenol) 650 mg Q6H PRN ORAL Mild Pain/Temp > 101 11/09/17 21:30 12/09/17 21:29 Albuterol/ Ipratropium (Albuterol/ Ipratropium) 3 ml Q4H PRN HHN Shortness of Breath 12/01/17 20:15 12/06/17 20:14 Fluconazole (Diflucan) 200 mg DAILY ORAL 11/25/17 14:00 12/05/17 13:59 12/02/17 09:59 Folic Acid (Folate) 2 mg DAILY NG 11/22/17 09:00 12/20/17 20:59 12/02/17 09:59 Heparin Sodium (Porcine) (Heparin 5000 units/ml) 5,000 units EVERY 12 HOURS SUBQ 11/10/17 09:00 12/10/17 08:59 12/02/17 10:03 Lansoprazole (Prevacid) 30 mg DAILY NG 11/22/17 09:00 12/22/17 08:59 12/02/17 09:58 Levetiracetam (Keppra) 1,000 mg Q12HR NG 11/28/17 21:00 12/28/17 20:59 12/02/17 09:58 Midodrine (Pro-Amatine) 5 mg THREE TIMES A DAY GT 11/28/17 18:00 12/20/17 17:59 12/02/17 09:58 Ondansetron HCl (Zofran) 4 mg Q4H PRN IVP Nausea & Vomiting 11/09/17 21:30 12/09/17 21:29 Sennosides (Senokot) 1 tab DAILY PRN ORAL Constipation 11/09/17 21:30 12/09/17 21:29 Kortney Quiñones M.D. Dec 02, 2017 16:30
--- NOTE | 2017-12-03 12:56 | Discharge Summary ---
Discharge Summary Discharge Summary _ DATE OF ADMISSION: 11/09/2017 DATE OF DISCHARGE: 12/02/2017 REASON FOR ADMISSION: 52 years old female bedbound , [facility] resident, with past medical history of traumatic brain injury, CVA with left hemiparesis, history of tracheostomy , status post takedown, suprapubic catheter, staghorn renal calculi ,seizure disorder, multiply hospitalization for sepsis and recurrent urinary tract infection, presented with tachycardia , hypoxemia, low blood pressure. Upon evaluation WBC 11. Hemoglobin and hematocrit initially stable. Sodium 177. BUN 98 ,creatinine 6.2 . CO2 15.Anion gap 25. Lactic acid-3.4 Phosphorus 7.2, magnesium 3.0. Calcium-10.3. Troponin negative. EKG revealed sinus tachycardia, no acute ischemic changes . Urinalysis was positive for UTI. Chest x-ray revealed no acute cardiopulmonary pathology. CT of the abdomen and pelvis revealed bilateral nephroureteral stents. Mild-to- moderate right hydronephrosis. In addition, perinephric fat stranding, periureteral fat stranding and apparent thickening of the renal pelvic proximal ureteral mucosa, probably indicative of pyelitis /nephritis. Colonic diverticulosis without evidence of diverticulitis. Patient admitted with diagnoses of sepsis, shock likely septic , profound dehydration with hypernatremia , anion gap metabolic acidosis, lactic acidosis , acute kidney injury likely on chronic kidney disease, hypercalcemia, urinary tract infection, history of traumatic brain injury, dementia, seizure disorder , history of prior tracheostomy, status post takedown, history of staghorn renal calculus with multiply UTI, status post suprapubic catheter placement. CONSULTANTS: neurologist Dr. Ramos ID specialist GI specialist global risk management director Dr. Luo [employer] volleyball coach/oncologist Dr. Mcclendon urologist Dr. Jean bioethics chair Dr. Landin palliative care Dr. Murray [facility] COURSE: Patient admitted and started on aggressive IV hydration. Hemodynamic status was closely monitored. Patient started on empiric antibiotics. Infectious disease specialist closely followed. Urine culture revealed Providencia and MRSA; blood culture were negative ; repeated urine cultures showed Amy. . Patient status post treatment with antibiotics,. leukocytosis resolved, no fevers. Supplemental oxygen provided to keep pulse oximetry above 92% , pulmonary toilet provided. NG tube was placed. DVT prophylaxis provided. Echocardiogram revealed preserved ejection fraction 55-60% and right ventricular systolic pressure of 10. No evidence of wall motion abnormalities. Venous duplex bilateral lower extremity revealed no evidence of acute DVT. Renal parameters and electrolytes were closely monitored. Electrolytes were corrected as needed, and nephrotoxins were avoided. Urine studies were done . Algology Teacher closely followed. Albumin boluses provided as needed for low blood pressure along with IV hydration. Urologist seen and evaluated the patient. Patient status post last exchange of suprapubic catheter on 11/18. Catheter was hand irrigated and remained patent. Abdominal ultrasound revealed mild bilateral hydronephrosis, despite presence of nephroureteral stents. Urologist recommended to continue antibiotics , closely monitor renal parameters and once medically stable addressed the issue of indwelling ureteral stents, which could be done by patient outpatient urologist. No evidence of significant renal obstruction on imaging. Prior to discharge BUN down to 45, creatinine 2.2 Na 148, Mg-2.4. Ca-9.[address] scan of the brain without contrast performed on 11/20/2017 revealed a large right convexity craniectomy and extensive underlying temporal and parietal encephalomalacia. There was also encephalomalacia of the right cerebellum. There was a left frontal craniotomy defect with overlying mesh. There was no significant underlying parenchymal abnormality on the left side. She also had right-sided ventriculostomy. No acute pathology was noted. Patient had three EEG performed during her stay in the hospital. The EEG done on 11/21/17 revealed severe generalized cerebral dysfunction and multiple electrographic seizures emanating from the right fronto-central region sometimes lasting al long as 120 seconds. The EEG done on 11/24/17 revealed a continuous electrographic seizure emanating from the right fronto-central area during her entire EEG and severe generalized cerebral dysfunction. The EEG done on 11/30/17 revealed electrographic seizures emanating from the right frontal, central and fronto-central region and moderate generalized cerebral dysfunction. Per neurologist, patient's neurological examination, laboratory data and imaging studies were most compatible with worsening toxic and metabolic encephalopathy in addition subclinical electrographic seizure emanating from the right frontal, central and frontocentral region. Mental status improved compared to the last few days, after antiseizure medication dose increased. Seizure precautions were maintained; Keppra was increased to 1500 mg IV every 12 hours. Bedside swallow evaluation revealed moderate to severe oropharyngeal dysphagia. Speech therapist recommended to keep patient nothing by mouth and consider non-oral tube feeding. Son initially was contacted and gave verbal consent for G-tube placement on via the phone. Consent was valid for 72 hours only. Bioethics committee was held on 11/24, since the further attempts to contact son were unsuccessful. Bioethics committee felt that under these circumstances, since the son gave prior verbal consent, attending physician and the other physicians could consent for G-tube procedure. Patient subsequently undergone upper endoscopy with G-tube placement on 11/26 Strict aspiration/ reflux precautions were maintained. Tube feeding started slowly and advanced to goal rate. Patient was able to tolerate tube feeding. G-tube site care provided. Patient was on PPI. Bowel regimen instituted. Spreading Machine Operator closely followed. Patient had evidence of anemia . Hemoglobin and hematocrit were closely monitored with goal to keep hemoglobin above 7. Patient was on DVT prophylaxis. Anemia workup was consistent with anemia of chronic disease. High ferritin noted. Patient also noted to have thrombocytopenia. Hepatitis panel and HIV test were both negative. Medication review revealed no medication that potentially could cause thrombocytopenia. Platelet count improved ,possibly was reactive secondary to sepsis. Spreading Machine Operator recommended to continue heparin for DVT prophylaxis. Patient was seen by database specialist. Patient with multiply chronic comorbidities, including traumatic brain injury since 2006, status post tracheostomy, status post takedown, encephalopathy, seizure disorder, multiply hospitalization for sepsis with recurrent UTI. allergy and immunology specialist recommended to consider hospice care. Patient clinically stabilized. Overall prognosis poor . Patient was stable for transfer to assisted facility for continuation of care. Palliative care was recommended. FINAL DIAGNOSES: severe sepsis septic shock severe dehydration with hypernatremia acute renal failure , likely on chronic kidney disease catheter associated urinary tract infection with Providencia and MRSA acute pyelonephritis hypotension moderate to severe dysphagia status post upper endoscopy with G-tube placement 11/26 toxic and metabolic encephalopathy anion gap metabolic acidosis, lactic acidosis. history of traumatic brain injury dementia seizure disorder electrolyte imbalance history of prior tracheostomy, status post takedown. right kidney hydronephrosis, likely chronic history of staghorn renal calculi with multiple UTIs urinary retention with chronic suprapubic catheter neurogenic bladder anemia of chronic disease thrombocytopenia DISCHARGE MEDICATIONS: List of medication was sent to accepting facility. DISCHARGE INSTRUCTIONS: Patient was discharged to the assisted facility. Follow up with medical doctor at the facility. I have been assigned to dictate discharge summary for this account. I was not involved in the patient's management. Monica Goss NP Dec 03, 2017 12:56
== END 2017-12-02 11:57 | DRG 720 ==
LOC: EDBD 13:05 → EDBEDREQ 13:24 → EMR 13:50 → EDBEDREQ 18:53 → 2W 19:03 → EDBEDREQ 20:02
PROC: 0DH63UZ Insertion of Feeding Device into Stomach, Percutaneous Approach (ICD-10-PCS; 2017-11-26 13:21)
PROC: 5A1945Z Respiratory Ventilation, 24-96 Consecutive Hours (ICD-10-PCS; principal; 2017-11-30)
PROC: 0BH17EZ Insertion of Endotracheal Airway into Trachea, Via Natural or Artificial Opening (ICD-10-PCS; 2017-11-30)
DX: A41.9 Sepsis, unspecified organism (principal); J96.01 Acute respiratory failure with hypoxia; R65.21 Severe sepsis with septic shock; G92 Toxic encephalopathy; N17.9 Acute kidney failure, unspecified; J90 Pleural effusion, not elsewhere classified; T83.518A Infection and inflammatory reaction due to other urinary catheter, initial encounter; I69.954 Hemiplegia and hemiparesis following unspecified cerebrovascular disease affecting left non-dominant side; E83.52 Hypercalcemia; D69.6 Thrombocytopenia, unspecified; E87.0 Hyperosmolality and hypernatremia; N10 Acute pyelonephritis; G40.909 Epilepsy, unspecified, not intractable, without status epilepticus; N13.2 Hydronephrosis with renal and ureteral calculous obstruction; E86.0 Dehydration; N18.9 Chronic kidney disease, unspecified; F03.90 Unspecified dementia, unspecified severity, without behavioral disturbance, psychotic disturbance, mood disturbance, and anxiety; R33.9 Retention of urine, unspecified; N31.9 Neuromuscular dysfunction of bladder, unspecified; R31.9 Hematuria, unspecified; G93.89 Other specified disorders of brain; D64.9 Anemia, unspecified; R19.7 Diarrhea, unspecified; M75.102 Unspecified rotator cuff tear or rupture of left shoulder, not specified as traumatic; Z22.338 Carrier of other streptococcus; K29.70 Gastritis, unspecified, without bleeding; R13.12 Dysphagia, oropharyngeal phase; Z74.01 Bed confinement status
CPT/HCPCS: 36415; 36600; 70450; 71045; 74018; 74176; 76700; 80048; 80053; 80061; 80076; 80202; 81001; 81003; 82140; 82533; 82550; 82553; 82607; 82728; 82746; 82803; 82962; 82977; 83036; 83540; 83550; 83605; 83735; 83880; 84100; 84443; 84484; 84550; 85007; 85025; 85610; 85730; 86140; 86592; 86703; 86705; 86709; 86803; 87040; 87081; 87086; 87181; 87324; 87340; 93005; 93306; 93970; 94003; 94150; 94640; 94660; 94664; 94760; 95819; 96365; 99285; J7620; S0077

== ENCOUNTER 2017-12-04 21:50 | Inpatient (IN) | payer MEDICAID ==
[~2017-12-04] VITALS: Ht 165.1 cm; Wt 64.9 kg
[~2017-12-04 21:50] MED LIST changes: +ACETAMINOPHEN325 M1 ORAL; +CRANBERRY425 MG PO; +DOCUSATE SODIU100 MG ORAL; +FLORASTOR250 MG ORAL; +HYDROCORTISONE 1% TOPIC; +LEVETIRACETAM500 MG ORAL; +MIDODRINE HCL5 MG ORAL; +MULTIVITAMINS1 EAC8 ORAL; +PROTONIX40 MG ORAL; +SENNA8.6 M2 PO; +ZOFRAN4 M3 ORAL
--- NOTE | 2017-12-04 22:02 | Emergency Room Report ---
History of Present Illness General Chief Complaint: Fever Source: Medical Record, EMS Present Illness HPI this is a 52 years old female who is bedbound , [facility] resident, with past medical history of traumatic brain injury, CVA with left hemiparesis, history of tracheostomy , status post takedown, suprapubic catheter, staghorn renal calculi ,seizure disorder, and multiple hospitalizations for sepsis and recurrent urinary tract infection. she was recently admitted and just discharged 2 days ago. Unable to get any other history from the patient because of her condition and normal verbal state. Allergies: Coded Allergies: CEFEPIME (Unverified Allergy, Unknown, 11/09/17) Patient History Past Medical History: see triage record, old chart reviewed Past Surgical History: other Pertinent Family History: none Social History: Denies: smoking Last Menstrual Period: unk Now: No Immunizations: other Reviewed Nursing Documentation: PMH: Agreed; PSxH: Agreed Nursing Documentation-PMH Hx Cardiac Problems: Yes - CHF Hx Hypertension: Yes Hx Cancer: No Hx Gastrointestinal Problems: Yes Hx Neurological Problems: Yes - obstructive HYDROCEPHALUS Hx Seizures: Yes Hx Traumatic Brain Injury: Yes Hx Speech Problem: Yes Hx Aphasia: Yes Hx Dysphasia: Yes Hx Neurologic Surgery: Yes - craniotomy Review of Systems Constitutional: Reports: fever All Other Systems: limited - secondary to condition Physical Exam Vital Signs Date Time Temp Pulse Resp B/P (MAP) Pulse Ox O2 Delivery O2 Flow Rate FiO2 12/04/17 21:51 99.7 110 18 96/86 94 Room Air 99.7 vitals with fever and tachycardia Sp02 EP Interpretation: reviewed, normal General Appearance: lethargic, Chronically Ill Head: normocephalic, atraumatic, other - rt craniotomy Eyes: bilateral eye PERRL, bilateral eye EOMI ENT: dry mucus membranes Neck: full range of motion, supple, no meningismus Respiratory: chest non-tender, lungs clear, normal breath sounds Cardiovascular #1: regular rate, rhythm, no murmur Gastrointestinal: normal bowel sounds, non tender, no mass, no organomegaly, no bruit, non-distended Musculoskeletal: back normal Neurologic: other - no change from baseline Skin: warm/dry Medical Decision Making Diagnostic Impression: Primary Impression: Sepsis Qualified Codes: A41.9 - Sepsis, unspecified organism Additional Impressions: UTI (urinary tract infection) Qualified Codes: N30.00 - Acute cystitis without hematuria WEN (acute kidney injury) Dehydration ER Course Patient presents with fever and has UTI. She grew out gram-negative rods and MRSA in the past. Both are sensitive to Zosyn and vancomycin. She also show evidence of dehydration and ATN. IV hydration given. Patient will be admitted versus transfer based on her insurance. Pt will be admitted here under Dr. Montalvo. Lab Results Impression labs with elevated BUN/creatinine EKG Diagnostic Results Rate: tachycardiac Rhythm: NSR ST Segments: no acute changes Rhythm Strip Diag. Results Rhythm Strip Time: 23:49 EP Interpretation: yes Rate: 100 Rhythm: NSR, no PVC's, no ectopy Chest X-Ray Diagnostic Results Chest X-Ray Diagnostic Results : Chest X-Ray Ordered: Yes # of Views/Limited/Complete: 1 View Indication: Shortness of Breath EP Interpretation: Yes Interpretation: no consolidation, no effusion, no pneumothorax, no acute cardiopulmonary disease, other - DUNGEON MASTER shunt Impression: No acute disease Electronically Signed by: Prem Lubin MD Last Vital Signs Date Time Temp Pulse Resp B/P (MAP) Pulse Ox O2 Delivery O2 Flow Rate FiO2 12/04/17 21:51 99.7 110 18 96/86 94 Room Air 99.7 Status: improved Prem Lubin MD Dec 04, 2017 22:02
[2017-12-04 22:49] LABS: BASOPHILS % (AUTO) 0.9 % (0.0-2.0); EOSINOPHILS % (AUTO) 1.9 % (0.0-3.0); HEMATOCRIT 27.7 % (37.0-47.0); LYMPHOCYTES % (AUTO) 14.9 % (20.0-45.0); MEAN CORPUSCULAR VOLUME 95 FL (80-99); MONOCYTES % (AUTO) 5.9 % (1.0-10.0); NEUTROPHILS % (AUTO) 76.5 % (45.0-75.0); PLATELET COUNT 497 K/UL (150-450); RED CELL DISTRIBUTION WIDTH 17.1 % (11.6-14.8); WHITE BLOOD COUNT 14.8 K/UL (4.8-10.8)
[2017-12-04 22:57] LABS: APPEARANCE,URINE SLIGHTLY CLOUDY; BILIRUBIN, URINE NEGATIVE (NEGATIVE); GLUCOSE, URINE (UA) NEGATIVE (NEGATIVE); KETONES,URINE 1+ (NEGATIVE); LEUKOCYTE ESTERASE ,URINE 3+ (NEGATIVE); NITRITE,URINE POSITIVE (NEGATIVE); PH,URINE 8 (4.5-8.0); PROTEIN,URINE 3+ (NEGATIVE); UROBILINOGEN,URINE NORMAL MG/DL (0.0-1.0)
[2017-12-04 22:58] LABS: COLOR,URINE YELLOW
[2017-12-04 23:03] LABS: ANION GAP 13 mmol/L (5-15); BLOOD UREA NITROGEN 62 mg/dL (7-18); CALCIUM 9.8 MG/DL (8.5-10.1); CARBON DIOXIDE 23 MMOL/L (21-32); CHLORIDE 111 MMOL/L (98-107); CREATININE 3.1 MG/DL (0.55-1.30); POTASSIUM 5.3 MMOL/L (3.5-5.1); SODIUM 147 MMOL/L (136-145)
[2017-12-04 23:17] LABS: ALANINE AMINOTRANSFERASE 84 U/L (12-78); ALBUMIN/GLOBULIN RATIO 0.5 (1.0-2.7); ALKALINE PHOSPHATASE 211 U/L (46-116); ASPARTATE AMINO TRANSFERASE 107 U/L (15-37); BILIRUBIN,TOTAL 0.7 MG/DL (0.2-1.0); CKMB 1.6 NG/ML (0.0-3.6); CREATINE KINASE 617 U/L (26-308)
[2017-12-04] MEDS ORDERED: Piperacillin/Tazobactam 3.375 GM in NS 110 ML IVPB ONE (23:30)
[2017-12-04] MEDS ORDERED: Vancomycin 1 GM in NS 275 ML IVPB ONE (23:30)
[2017-12-05 01:12] VITALS: BP 96/86
[2017-12-05] MEDS ORDERED: Docusate 100mg cap ORAL PRN (03:15)
[2017-12-05] MEDS ORDERED: D5 1/2NS 1,000 ML IV SCH (04:00)
[2017-12-05] MEDS ORDERED: Sennosides 8.6mg GT PRN ×2 (06:26→06:27)
[2017-12-05 08:00] VITALS: BP 118/66
[2017-12-05 08:04] LABS: EOSINOPHILS % (AUTO) 4.2 % (0.0-3.0); HEMOGLOBIN 8.5 G/DL (12.0-16.0); LYMPHOCYTES % (AUTO) 19.4 % (20.0-45.0); MEAN CORPUSCULAR VOLUME 94 FL (80-99); MONOCYTES % (AUTO) 5.5 % (1.0-10.0); PLATELET COUNT 397 K/UL (150-450); RED BLOOD COUNT 2.88 M/UL (4.20-5.40); RED CELL DISTRIBUTION WIDTH 17.8 % (11.6-14.8); WHITE BLOOD COUNT 9.1 K/UL (4.8-10.8)
[2017-12-05 08:10] LABS: ANION GAP 13 mmol/L (5-15); BLOOD UREA NITROGEN 53 mg/dL (7-18); CALCIUM 9.2 MG/DL (8.5-10.1); CARBON DIOXIDE 21 MMOL/L (21-32); CHLORIDE 117 MMOL/L (98-107); CREATININE 2.8 MG/DL (0.55-1.30); POTASSIUM 4.8 MMOL/L (3.5-5.1); SODIUM 151 MMOL/L (136-145)
[2017-12-05] MEDS ORDERED: Midodrine 10mg tab ORAL SCH (09:00)
[2017-12-05] MEDS: Multivitamin w/Minerals tab ORAL SCH (09:33)
[2017-12-05] MEDS: Heparin 5000 units/ml inj SUBQ SCH ×2 (09:38→21:33)
[2017-12-05] MEDS ORDERED: Zosyn 3.375gm q12h **Extended infusion IVPB SCH ×2 (11:00)
--- NOTE | 2017-12-05 11:31 | Diagnostic Imaging Report ---
Indication: Chest pain Technique: One view of the chest Comparison: 12/01/2017 Findings: There is bilateral right-sided interstitial disease, appearing somewhat less patchy than on the prior study, more similar to prior exam of 11/24/2017. Again demonstrated is right-sided ventriculoperitoneal shunt tubing. The pleural spaces are clear. No focal airspace consolidation. There are degenerative and possibly posttraumatic changes of the left shoulder Impression: Bilateral minimal right-sided interstitial disease, somewhat diffuse, possibly increased since more recent study of 12/01/2017, similar to prior exam of 11/24/2017. Appearance is nonspecific.
[2017-12-05 12:00] VITALS: BP 121/68
--- NOTE | 2017-12-05 14:07 | Consultation ---
Consult Note Consult Note Hematology Consultation RFC: Anemia and hyperproteinemia eval DOS: 12/05/2017 RQ MD: Tawny Montalvo ID: 52 years old female bedbound , [facility] resident, with past medical history of traumatic brain injury, CVA with left hemiparesis, history of tracheostomy , status post takedown, suprapubic catheter, staghorn renal calculi ,seizure disorder, multiply hospitalization for sepsis and recurrent urinary tract infection, presented with tachycardia , hypoxemia, noted to have pna/uti, presents with sepsis and ams. Upon evaluation WBC 11. Hemoglobin and hematocrit initially stable. BUN 98 ,creatinine 6.2. CO2 15.Anion gap 25. Lactic acid-3.4 Phosphorus 7.2, magnesium 3.0. Calcium-10.3. Troponin negative. EKG revealed sinus tachycardia, no acute ischemic changes . Urinalysis was positive for UTI. Patient admitted with diagnoses of sepsis, shock likely septic , profound dehydration with hypernatremia , anion gap metabolic acidosis, lactic acidosis, acute kidney injury likely on chronic kidney disease, hypercalcemia, urinary tract infection, history of traumatic brain injury, dementia, seizure disorder, history of prior tracheostomy, status post takedown, history of staghorn renal calculus with multiply UTI, status post suprapubic catheter placement. Was here last week and I last saw her 3 days ago. Coded Allergies: CEFEPIME (Unverified Allergy, Unknown, 11/09/17) Patient History Past Medical History: see triage record, old chart reviewed Past Surgical History: other Pertinent Family History: none Social History: Denies: smoking Last Menstrual Period: unk Now: No Immunizations: other Reviewed Nursing Documentation: PMH: Agreed; PSxH: Agreed Nursing Documentation-PMH Hx Cardiac Problems: Yes - CHF Hx Hypertension: Yes Hx Cancer: No Hx Gastrointestinal Problems: Yes Hx Neurological Problems: Yes - obstructive HYDROCEPHALUS Hx Seizures: Yes Hx Traumatic Brain Injury: Yes Hx Speech Problem: Yes Hx Aphasia: Yes Hx Dysphasia: Yes Hx Neurologic Surgery: Yes - craniotomy ER ROS - General Review of Systems Constitutional: Reports: fever All Other Systems: limited - secondary to condition Other ROS is negative ER Physical Exam - General Physical Exam Vital Signs Date Time Temp Pulse Resp B/P (MAP) Pulse Ox O2 Delivery O2 Flow Rate FiO2 12/04/17 21:51 99.7 110 18 96/86 94 Room Air 99.7 vitals with fever and tachycardia Sp02 EP Interpretation: reviewed General Appearance: lethargic, chronically Ill Head: normocephalic, atraumatic, other - rt craniotomy Eyes: bilateral eye PERRL, bilateral eye EOMI ENT: dry mucus membranes Neck: full range of motion, supple, no meningismus Respiratory: chest non-tender, lungs clear Cardiovascular #1: regular rate, rhythm, no murmur Gastrointestinal: normal bowel sounds, nt ++ peg Musculoskeletal: back normal Neurologic: other - no change from baseline Skin: warm/dry Laboratory Tests Test 12/04/17 22:25 12/04/17 22:40 12/05/17 06:50 White Blood Count 14.8 K/UL (4.8-10.8) H 9.1 K/UL (4.8-10.8) Red Blood Count 2.90 M/UL (4.20-5.40) L 2.88 M/UL (4.20-5.40) L Hemoglobin 9.0 G/DL (12.0-16.0) L 8.5 G/DL (12.0-16.0) L Hematocrit 27.7 % (37.0-47.0) L 27.0 % (37.0-47.0) L Mean Corpuscular Volume 95 FL (80-99) 94 FL (80-99) Mean Corpuscular Hemoglobin 30.9 PG (27.0-31.0) 29.6 PG (27.0-31.0) Mean Corpuscular Hemoglobin Concent 32.4 G/DL (32.0-36.0) 31.5 G/DL (32.0-36.0) L Red Cell Distribution Width 17.1 % (11.6-14.8) H 17.8 % (11.6-14.8) H Platelet Count 497 K/UL (150-450) H 397 K/UL (150-450) Mean Platelet Volume 6.5 FL (6.5-10.1) 6.9 FL (6.5-10.1) Neutrophils (%) (Auto) 76.5 % (45.0-75.0) H 70.0 % (45.0-75.0) Lymphocytes (%) (Auto) 14.9 % (20.0-45.0) L 19.4 % (20.0-45.0) L Monocytes (%) (Auto) 5.9 % (1.0-10.0) 5.5 % (1.0-10.0) Eosinophils (%) (Auto) 1.9 % (0.0-3.0) 4.2 % (0.0-3.0) H Basophils (%) (Auto) 0.9 % (0.0-2.0) 1.0 % (0.0-2.0) Prothrombin Time 10.2 SEC (9.30-11.50) Prothromb Time International Ratio 1.0 (0.9-1.1) Activated Partial Thromboplast Time 27 SEC (23-33) Sodium Level 147 MMOL/L (136-145) H 151 MMOL/L (136-145) H Potassium Level 5.3 MMOL/L (3.5-5.1) H 4.8 MMOL/L (3.5-5.1) Chloride Level 111 MMOL/L (98-107) H 117 MMOL/L (98-107) H Carbon Dioxide Level 23 MMOL/L (21-32) 21 MMOL/L (21-32) Anion Gap 13 mmol/L (5-15) 13 mmol/L (5-15) Blood Urea Nitrogen 62 mg/dL (7-18) H 53 mg/dL (7-18) H Creatinine 3.1 MG/DL (0.55-1.30) H 2.8 MG/DL (0.55-1.30) H Estimat Glomerular Filtration Rate 15.7 mL/min (>60) 17.6 mL/min (>60) Glucose Level 130 MG/DL (74-106) H 111 MG/DL (74-106) H Lactic Acid Level 1.10 mmol/L (0.4-2.0) Calcium Level 9.8 MG/DL (8.5-10.1) 9.2 MG/DL (8.5-10.1) Total Bilirubin 0.7 MG/DL (0.2-1.0) Aspartate Amino Transf (AST/SGOT) 107 U/L (15-37) H Alanine Aminotransferase (ALT/SGPT) 84 U/L (12-78) H Alkaline Phosphatase 211 U/L (46-116) H Total Creatine Kinase 617 U/L (26-308) H Creatine Kinase MB 1.6 NG/ML (0.0-3.6) Creatine Kinase MB Relative Index 0.2 Troponin I 0.033 ng/mL (0.000-0.056) Total Protein 9.4 G/DL (6.4-8.2) H Albumin 3.0 G/DL (3.4-5.0) L Globulin 6.4 g/dL Albumin/Globulin Ratio 0.5 (1.0-2.7) L Urine Color Yellow Urine Appearance Slightly cloudy Urine pH 8 (4.5-8.0) Urine Specific [place] 1.010 (1.005-1.035) Urine Protein 3+ (NEGATIVE) H Urine Glucose (UA) Negative (NEGATIVE) Urine Ketones 1+ (NEGATIVE) H Urine Blood 5+ (NEGATIVE) H Urine Nitrite Positive (NEGATIVE) H Urine Bilirubin Negative (NEGATIVE) Urine Urobilinogen Normal MG/DL (0.0-1.0) Urine Leukocyte Esterase 3+ (NEGATIVE) H Urine RBC 10-15 /HPF (0 - 2) H Urine WBC 5-10 /HPF (0 - 2) H Urine Squamous Epithelial Cells Few /LPF (NONE/OCC) Urine Bacteria Moderate /HPF (NONE) H #. Anemia of chronic disease -- workup has been reviewed from before and noted to have high ferritin 1500, other labs consistent with ACD --> monitor and started on folic acid daily --> hgb goal >7, transfuse prn basis --> heparin 5k sq tid as ppx #. Hyperproteinemia -- elevated protein on admission, in past modestly high --> send off spep and upep --> r/o mm, could also be 2/2 dehydration #. 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 She also has a history of a seizure disorder that is undefined. --> appreciate neuro recs from prior admission # Respiratory failure and now s/p takedown --> appreciate pulm recs # Urinary tract infection, and multiple episodes of sepsis. --> s/p abx treatment and seen by ID --> on liliana and flucon # Hydronephrosis r kidney --> may need stent exchange per uro, appreciate their recs # Dysphagia s/p peg tube --> getting gtube feeds # Trace right sided pleural effusion # Bioethics/hospice services consulted --> recommended hospice last admission Appreciate consultation greatly! Dawit Mcclendon MD Dec 05, 2017 14:07
--- NOTE | 2017-12-05 14:19 | Infectious Diseases Prog Note ---
Assessment/Plan Problems: (1) Catheter-associated urinary tract infection Assessment & Plan: due to yeast , will resume fluconazol, pending repeated urine culture , may need to change tompkins if grows yeast again (2) Sepsis Assessment & Plan: with hypotension due to the above, will start meropenem, and vancomycin pending blood culture (3) Hydronephrosis of right kidney Assessment & Plan: will repeat renal US , continue wide spectrum antibiotics and fluids (4) WEN (acute kidney injury) Assessment & Plan: continue hydration , monitor renal function with renally dosed meds (5) Dehydration Assessment & Plan: continue IVF, monitor UOP and lytes (6) Altered mental state Assessment & Plan: due to the above, continue tele monitor and neuro check , avoid sedatives Subjective Allergies: Coded Allergies: CEFEPIME (Unverified Allergy, Unknown, 11/09/17) Objective Vital Signs Last 24 Hour Vital Signs Date Time Temp Pulse Resp B/P (MAP) Pulse Ox O2 Delivery O2 Flow Rate FiO2 12/05/17 12:00 98.0 98 18 121/68 (85) 97 98.0 12/05/17 12:00 80 12/05/17 08:00 99 12/05/17 08:00 97.3 100 18 118/66 (83) 95 97.3 12/05/17 02:34 Room Air 12/05/17 01:53 97 12/05/17 01:35 99.4 104 18 113/71 94 Room Air 99.4 12/05/17 01:12 99.4 104 18 96/86 94 Room Air 99.4 12/04/17 21:51 99.7 110 18 96/86 94 Room Air 99.7 Height (Feet): 5 Height (Inches): 5.00 Weight (Pounds): 140 Laboratory Tests Test 12/04/17 22:25 12/04/17 22:40 12/05/17 06:50 White Blood Count 14.8 K/UL (4.8-10.8) H 9.1 K/UL (4.8-10.8) Red Blood Count 2.90 M/UL (4.20-5.40) L 2.88 M/UL (4.20-5.40) L Hemoglobin 9.0 G/DL (12.0-16.0) L 8.5 G/DL (12.0-16.0) L Hematocrit 27.7 % (37.0-47.0) L 27.0 % (37.0-47.0) L Mean Corpuscular Volume 95 FL (80-99) 94 FL (80-99) Mean Corpuscular Hemoglobin 30.9 PG (27.0-31.0) 29.6 PG (27.0-31.0) Mean Corpuscular Hemoglobin Concent 32.4 G/DL (32.0-36.0) 31.5 G/DL (32.0-36.0) L Red Cell Distribution Width 17.1 % (11.6-14.8) H 17.8 % (11.6-14.8) H Platelet Count 497 K/UL (150-450) H 397 K/UL (150-450) Mean Platelet Volume 6.5 FL (6.5-10.1) 6.9 FL (6.5-10.1) Neutrophils (%) (Auto) 76.5 % (45.0-75.0) H 70.0 % (45.0-75.0) Lymphocytes (%) (Auto) 14.9 % (20.0-45.0) L 19.4 % (20.0-45.0) L Monocytes (%) (Auto) 5.9 % (1.0-10.0) 5.5 % (1.0-10.0) Eosinophils (%) (Auto) 1.9 % (0.0-3.0) 4.2 % (0.0-3.0) H Basophils (%) (Auto) 0.9 % (0.0-2.0) 1.0 % (0.0-2.0) Prothrombin Time 10.2 SEC (9.30-11.50) Prothromb Time International Ratio 1.0 (0.9-1.1) Activated Partial Thromboplast Time 27 SEC (23-33) Sodium Level 147 MMOL/L (136-145) H 151 MMOL/L (136-145) H Potassium Level 5.3 MMOL/L (3.5-5.1) H 4.8 MMOL/L (3.5-5.1) Chloride Level 111 MMOL/L (98-107) H 117 MMOL/L (98-107) H Carbon Dioxide Level 23 MMOL/L (21-32) 21 MMOL/L (21-32) Anion Gap 13 mmol/L (5-15) 13 mmol/L (5-15) Blood Urea Nitrogen 62 mg/dL (7-18) H 53 mg/dL (7-18) H Creatinine 3.1 MG/DL (0.55-1.30) H 2.8 MG/DL (0.55-1.30) H Estimat Glomerular Filtration Rate 15.7 mL/min (>60) 17.6 mL/min (>60) Glucose Level 130 MG/DL (74-106) H 111 MG/DL (74-106) H Lactic Acid Level 1.10 mmol/L (0.4-2.0) Calcium Level 9.8 MG/DL (8.5-10.1) 9.2 MG/DL (8.5-10.1) Total Bilirubin 0.7 MG/DL (0.2-1.0) Aspartate Amino Transf (AST/SGOT) 107 U/L (15-37) H Alanine Aminotransferase (ALT/SGPT) 84 U/L (12-78) H Alkaline Phosphatase 211 U/L (46-116) H Total Creatine Kinase 617 U/L (26-308) H Creatine Kinase MB 1.6 NG/ML (0.0-3.6) Creatine Kinase MB Relative Index 0.2 Troponin I 0.033 ng/mL (0.000-0.056) Total Protein 9.4 G/DL (6.4-8.2) H Albumin 3.0 G/DL (3.4-5.0) L Globulin 6.4 g/dL Albumin/Globulin Ratio 0.5 (1.0-2.7) L Urine Color Yellow Urine Appearance Slightly cloudy Urine pH 8 (4.5-8.0) Urine Specific [place] 1.010 (1.005-1.035) Urine Protein 3+ (NEGATIVE) H Urine Glucose (UA) Negative (NEGATIVE) Urine Ketones 1+ (NEGATIVE) H Urine Blood 5+ (NEGATIVE) H Urine Nitrite Positive (NEGATIVE) H Urine Bilirubin Negative (NEGATIVE) Urine Urobilinogen Normal MG/DL (0.0-1.0) Urine Leukocyte Esterase 3+ (NEGATIVE) H Urine RBC 10-15 /HPF (0 - 2) H Urine WBC 5-10 /HPF (0 - 2) H Urine Squamous Epithelial Cells Few /LPF (NONE/OCC) Urine Bacteria Moderate /HPF (NONE) H Current Medications Medications (Trade) Dose Ordered Sig/Tay Route PRN Reason Start Time Stop Time Status Last Admin Dose Admin Acetaminophen (Tylenol) 650 mg Q4H PRN ORAL Fever/Headache/Mild Pain 12/05/17 03:15 01/04/18 03:14 Dextrose/Sodium Chloride 1,000 ml @ 60 mls/hr [id number] IV 12/05/17 04:00 01/04/18 03:59 12/05/17 04:52 Docusate Sodium (Colace) 200 mg Q8HR PRN ORAL Constipation 12/05/17 03:15 01/04/18 03:14 Heparin Sodium (Porcine) (Heparin 5000 units/ml) 5,000 units EVERY 12 HOURS SUBQ 12/05/17 09:00 01/04/18 08:59 12/05/17 09:38 Levetiracetam (Keppra) 500 mg TWICE A DAY ORAL 12/05/17 09:00 01/04/18 08:59 12/05/17 09:33 Midodrine (Pro-Amatine) 5 mg BID ORAL 12/05/17 09:00 01/04/18 08:59 12/05/17 09:33 Midodrine (Pro-Amatine) 10 mg BID ORAL 12/05/17 09:00 01/04/18 08:59 12/05/17 09:35 Multivitamins Therapeutic (Therapeutic Multivitamin) 1 ea DAILY ORAL 12/05/17 09:00 01/04/18 08:59 12/05/17 09:33 Ondansetron HCl (Zofran) 4 mg Q6H PRN ORAL Nausea & Vomiting 12/05/17 03:15 01/04/18 03:14 Pantoprazole (Protonix) 40 mg DAILY ORAL 12/05/17 09:00 01/04/18 08:59 12/05/17 09:33 Piperacillin Sod/ Tazobactam Sod 3.375 gm/Sodium Chloride 110 ml @ 27.5 mls/hr Q12H IVPB 12/05/17 11:00 12/12/17 10:59 12/05/17 12:00 Saccharomyces Boulardii (Florastor) 250 mg TID ORAL 12/05/17 09:00 01/04/18 08:59 12/05/17 13:38 Sennosides (Senokot) 1 tab QHS PRN GT Constipation 12/05/17 06:27 01/04/18 06:25 Vancomycin HCl (Vanco rx to dose) 1 ea DAILY PRN MISC Per rx protocol 12/05/17 03:15 01/04/18 03:14 Kortney Quiñones M.D. Dec 05, 2017 14:19
[2017-12-05 15:03] LABS: % IRON SATURATION 16 % (15-50); IRON 43 ug/dL (50-175); TOTAL IRON BINDING CAPACITY 271 ug/dL (250-450)
[2017-12-05 15:16] LABS: FERRITIN 287 NG/ML (8-388)
--- NOTE | 2017-12-05 15:30 | Consultation ---
Consult Note Consult Note known to me from her recent long admission left with Cr 2.2 on previous conditions: (1) Hypotension (2) Acute renal failure (ARF) (3) Dehydration with hypernatremia (4) Severe sepsis (5) Shock (6) Dehydration, severe (7) Sz disorder this is a 52 years old female who is bedbound , alf resident, with past medical history of traumatic brain injury, CVA with left hemiparesis, history of tracheostomy , status post takedown, suprapubic catheter, staghorn renal calculi ,seizure disorder, and multiple hospitalizations for sepsis and recurrent urinary tract infection. she was recently admitted and just discharged 2 days ago. Unable to get any other history from the patient because of her condition and normal verbal state. Allergies: CEFEPIME (Unverified Allergy, Unknown, 11/09/17) Hx Cardiac Problems: Yes - CHF Hx Hypertension: Yes Hx Gastrointestinal Problems: Yes Hx Neurological Problems: Yes - obstructive HYDROCEPHALUS Hx Seizures: Yes Hx Traumatic Brain Injury: Yes Hx Speech Problem: Yes Hx Aphasia: Yes Hx Dysphasia: Yes Hx Neurologic Surgery: Yes - craniotomy examined data reviewed Assessment/Plan Sepsis UTI (urinary tract infection) WEN (acute kidney injury) Dehydration hypernatremia Hypotension has PEG and suprapubic Hydrate IV to D5w avoid nephrotoxics monitor renal parameters continue Parrish Jessica MD Dec 05, 2017 15:30
[2017-12-05 16:00] VITALS: BP 119/69
[2017-12-05] MEDS: Meropenem 500mg in NS 55ml IVPB SCH (17:03)
[2017-12-05] MEDS: Midodrine 10mg tab GT SCH (17:04)
--- NOTE | 2017-12-05 17:13 | Diagnostic Imaging Report ---
Indication: Elevated renal function tests Technique: Grayscale and duplex images of the kidneys, retroperitoneum, and bladder were obtained. Comparison: Abdomen ultrasound 11/28/2017 Findings: Right kidney measures 9.5 cm in length. Left kidney measures 9.6 cm in length. Both kidneys demonstrate normal echogenicity. There is mild bilateral hydronephrosis. There are bilateral nephroureteral stents in place. There is a small cyst in the left kidney.. Normal inferior vena cava. Bladder is empty, contains a suprapubic catheter. Impression: Bilateral left greater than right mild hydronephrosis, despite the presence of bilateral nephroureteral stents. This is also described on previous exams. The possibility of stent malfunction should be considered. Correlation with liver function tests is recommended Into bladder with a suprapubic catheter Incidental finding of left renal cyst.
--- NOTE | 2017-12-05 19:45 | Consultation ---
DATE OF CONSULTATION: 12/05/2017 UROLOGY CONSULTATION CONSULTING PHYSICIAN: Chin Jean M.D. REFERRING PHYSICIAN: Jose Montalvo M.D. REASON FOR CONSULTATION: For evaluation of multiple urologic issues. HISTORY OF PRESENT ILLNESS: This is a 52-year-old female. I have evaluated her last month because of chronic suprapubic tube. She has history of UTIs. She has history of hydronephrosis, which is chronic. She has history of indwelling ureteral stents that were placed by an outside urologist. At this time, we do not know when it was placed and for what reason. I had changed her suprapubic last month on November 18. She has been readmitted to the hospital because of fevers. PAST MEDICAL HISTORY: Significant for traumatic brain injury, seizure disorder, CVA, chronic suprapubic tube. PAST SURGICAL HISTORY: Unknown. MEDICATIONS: Current medication list was reviewed. ALLERGIES: To cefepime. PHYSICAL EXAMINATION: GENERAL: The patient is an elderly looking female. VITAL SIGNS: Stable. Temperature is 98, blood pressure 121/68. GENITOURINARY: Suprapubic tube is in place, an 18-[place]. Urine is yellowish dalia with debris. LABORATORY DATA: UA showed 3+ leuks, 10-15 rbc's, 5-10 wbc's, moderate bacteria, and 3+ protein. White count is 9.1, hemoglobin 8.5. Her BUN is 53, creatinine is 2.8. She had creatinine of 3.1 on admission. I think her baseline creatinine is in the high 2s. DIAGNOSTIC IMAGING STUDIES: The patient had abdominal ultrasound on the , which showed mild bilateral hydronephrosis. She had a renal ultrasound today which showed again mild hydronephrosis and there was mention of a small left renal cyst. IMPRESSION: 1. Hydronephrosis, which is chronic. 2. Renal insufficiency, acute on chronic. 3. Hematuria. 4. Pyuria with UTI and colonization. 5. Proteinuria. 6. Urinary retention, chronic suprapubic tube. 7. Probable neurogenic bladder. 8. Renal cyst. PLAN AND DISCUSSION: Again, the patient has a chronic suprapubic tube which was last changed on November 18. we will change hopefully in the next week or 2. She does have positive UA, which is chronic colonization. She is to continue with antibiotics as ordered. She is currently on meropenem. Renal function will be monitored. We can hopefully try to get some outside records regarding her ureteral stents and go from there. Thank you for this consultation. Chin Jean M.D. DR: Marissa JOB#: [id number] CC:
--- NOTE | 2017-12-05 19:45 | Consultation ---
DATE OF CONSULTATION: 12/05/2017 INFECTIOUS DISEASE CONSULTATION CONSULTING PHYSICIAN: Kortney Quiñones M.D. REQUESTING PHYSICIAN: Jose Montalvo M.D. REASON FOR CONSULTATION: Sepsis and catheter-associated urinary tract infection. Recommendation for antibiotics treatment in a patient with history of cefepime allergy. HISTORY OF PRESENT ILLNESS: The patient is a 52-year-old female with past medical history of congestive heart failure, hypertension, gastrointestinal with dysphagia, hydrocephalus, obstructive seizure disorder, and traumatic brain injury, who was recently discharged from [facility] after she was found to have a catheter-associated urinary tract infection due to Staph aureus and Providencia, multi-drug resistant species. The patient was treated with vancomycin and ertapenem 2 weeks total then she grew yeast in her urine, which required fluconazole treatment for two weeks. The patient had workup including renal ultrasound, which showed hydronephrosis with an old stent. Her suprapubic catheter was changed during the hospitalization and she was discharged to finish a 2-week course of fluconazole to [facility] facility. The patient was readmitted last night for fever, hypotension, possible sepsis, and Infectious Disease consultation was requested for further evaluation and management. The patient was found to have temperature of 99.7 with pulse of 110 and blood pressure of 96/86 concerning for sepsis. She was lethargic. The patient also had evidence of urinary tract infection with leukocytosis, so she was started on vancomycin and Zosyn and ID was consulted. Of note, the patient seems to be more awake, alert, coherent, and answered question appropriately at the time of my interview today. PAST MEDICAL HISTORY: Significant for congestive heart failure, hypertension, dysphagia, status post PEG tube, obstructive hydrocephalus, seizure, traumatic brain injury, aphasia, and dysphagia. PAST SURGICAL HISTORY: She had craniotomy. MEDICATIONS: She is currently on vancomycin and Zosyn. For the rest of her medications, please refer to MAR. ALLERGIES: She is allergic to cefepime, unclear what reaction she gets. FAMILY HISTORY: Unable to obtain. SOCIAL HISTORY: The patient lives at the [facility] facility. She had no recent drugs, tobacco, or alcohol abuse. REVIEW OF SYSTEMS: A 14-point of system reviewed were all negative apart from the one I mentioned above in my History and Physical. PHYSICAL EXAMINATION: VITAL SIGNS: Temperature of 98, pulse 80, respirations 18, blood pressure 121/68, and saturation 97% on room air. GENERAL: A middle-aged female, lying in bed, awake, alert, fully responsive to verbal command, not in acute distress, paraplegic. HEENT: She had craniotomy on the right side with big deficit. Pupils reactive to light. Pale sclera. Moist oral mucosa. No exudate or thrush. NECK: Supple. No lymphadenopathy. Old tracheal surgical scar. CARDIOVASCULAR: She is tachycardic. S1 and S2 normal. LUNGS: She had diminished breathing sounds at the bases. No wheezing or rhonchi. Normal breathing efforts. ABDOMEN: Soft, nontender, and nondistended. Normal bowel sounds. No hepatosplenomegaly or ascites. PEG tube site looks intact. No drainage or pus. EXTREMITIES: No edema or cyanosis. SKIN: Red, erythematous, and inflamed in the sacral area with abrasions. LABORATORY DATA: Labs showed white count of 9.1, hemoglobin of 8.5, and platelet count of 397,000. BUN of 53 and creatinine of 2.8. Lactic acid of 1.1. AST of 107 and ALT of 84. IMAGING: Chest x-ray showed bilateral minimal right side interstitial disease somewhat diffuse, possibly increased since more recent study similar to prior exam of 11/24/2017. Appearance is nonspecific. ASSESSMENT AND RECOMMENDATION: 1. Catheter-associated urinary tract infection previously due to yeast. We will resume fluconazole to finish her course of two weeks total pending repeated urine culture, which was done in the ER. May need to change the [place] if it grows yeast again. We will order renal ultrasound to rule out obstruction. 2. Sepsis with leukocytosis and hypotension due to the above. We will start meropenem and vancomycin empiric coverage for now pending blood culture. We will deescalate antibiotics based on the culture results. 3. Hydronephrosis of the right kidney. We will repeat renal ultrasound to evaluate for possible obstruction. Continue wide-spectrum antibiotics and fluid. Urology will evaluate the patient. 4. Acute renal failure on top of chronic. Continue hydration. Monitor renal function with renally dosed medicine. Nephrology was consulted. 5. Dehydration. Continue IV fluids. Monitor urine output and electrolytes. 6. Altered mental status due to the above improving. Continue tele monitor and neuro check to avoid sedatives. Thank you for the consult. ID will continue to follow. Please feel free to call with any question. Kortney Quiñones M.D. DR: AYAKA JOB#: [id number] CC:
[2017-12-05 20:00] VITALS: BP 119/78
[2017-12-05] MEDS: levETIRAcetam 500mg/5ml Liquid ORAL SCH (21:32)
--- NOTE | 2017-12-05 21:37 | Pulmonology Progress Note ---
Assessment/Plan Assessment/Plan Pulmonary Consultation Note HPI Patient is a 52 years old female who is bedbound , group home resident, with past medical history of traumatic brain injury, CVA with left hemiparesis, history of tracheostomy , status post takedown, suprapubic catheter, staghorn renal calculi ,seizure disorder, and multiple hospitalizations for sepsis and recurrent urinary tract infection. she was recently admitted and just discharged 2 days ago. Unable to get any other history from the patient because of her condition and normal verbal state. Admitted with UTI. 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 Surgical History: ORDER PACKER shunt Pertinent Family History: none Social History: Denies: smoking Last Menstrual Period: unk Now: No Immunizations: other Reviewed Nursing Documentation: PMH: Agreed; PSxH: Agreed Nursing Documentation-PMH Hx Cardiac Problems: Yes - CHF Hx Hypertension: Yes Hx Cancer: No Hx Gastrointestinal Problems: Yes Hx Neurological Problems: Yes - obstructive HYDROCEPHALUS Hx Seizures: Yes Hx Traumatic Brain Injury: Yes Hx Speech Problem: Yes Hx Aphasia: Yes Hx Dysphasia: Yes Hx Neurologic Surgery: Yes - craniotomy Review of Systems Constitutional: Reports: fever All Other Systems: limited - secondary to condition Physical Exam Vital Signs Date Time Temp Pulse Resp B/P (MAP) Pulse Ox O2 Delivery O2 Flow Rate FiO2 12/04/17 21:51 99.7 110 18 96/86 94 Room Air 99.7 vitals with fever and tachycardia Sp02 EP Interpretation: reviewed, normal General Appearance: lethargic, Chronically Ill Head: normocephalic, atraumatic, other - rt craniotomy Eyes: bilateral eye PERRL, bilateral eye EOMI ENT: dry mucus membranes Neck: full range of motion, supple, no meningismus Respiratory: chest non-tender, lungs clear, normal breath sounds Cardiovascular #1: regular rate, rhythm, no murmur Gastrointestinal: normal bowel sounds, non tender, no mass, no organomegaly, no bruit, non-distended Musculoskeletal: back normal Neurologic: other - no change from baseline Skin: warm/dry Medical Decision Making Diagnostic Impression: Primary Impression: Sepsis Qualified Codes: A41.9 - Sepsis, unspecified organism Additional Impressions: UTI (urinary tract infection) Qualified Codes: N30.00 - Acute cystitis without hematuria WEN (acute kidney injury) Dehydration Assessment and Plan Patient presents with fever and has UTI. She grew out gram-negative rods and MRSA in the past. Both are sensitive to Zosyn and vancomycin. She also show evidence of dehydration and ATN. IV hydration given. Patient will be admitted versus transfer based on her insurance. Continue current antibiotics IV fluids Continue BLOCK CLEANER Medications SQ Heparin O2 PRN Continue feeding Await Cultures Lab Results Impression labs with elevated BUN/creatinine EKG Diagnostic Results Rate: tachycardiac Rhythm: NSR ST Segments: no acute changes Rhythm Strip Diag. Results Rhythm Strip Time: 23:49 EP Interpretation: yes Rate: 100 Rhythm: NSR, no PVC's, no ectopy Chest X-Ray Diagnostic Results Chest X-Ray Diagnostic Results : Chest X-Ray Ordered: Yes # of Views/Limited/Complete: 1 View Indication: Shortness of Breath EP Interpretation: Yes Interpretation: no consolidation, no effusion, no pneumothorax, no acute cardiopulmonary disease, other - ORDER PACKER shunt Impression: No acute disease Subjective ROS Limited/Unobtainable: Yes Allergies: Coded Allergies: CEFEPIME (Unverified Allergy, Unknown, 11/09/17) Objective Last 24 Hour Vital Signs Date Time Temp Pulse Resp B/P (MAP) Pulse Ox O2 Delivery O2 Flow Rate FiO2 12/05/17 20:00 97.0 91 24 119/78 (92) 97 97.0 12/05/17 16:00 80 12/05/17 16:00 97.7 98 18 119/69 (86) 98 97.7 12/05/17 12:00 98.0 98 18 121/68 (85) 97 98.0 12/05/17 12:00 80 12/05/17 09:00 Room Air 12/05/17 08:00 99 12/05/17 08:00 97.3 100 18 118/66 (83) 95 97.3 12/05/17 02:34 Room Air 12/05/17 01:53 97 12/05/17 01:35 99.4 104 18 113/71 94 Room Air 99.4 12/05/17 01:12 99.4 104 18 96/86 94 Room Air 99.4 12/04/17 21:51 99.7 110 18 96/86 94 Room Air 99.7 Intake and Output 12/04/17 12/05/17 19:00 07:00 Intake Total 0 ml Output Total 900 ml Balance -900 ml Intake Oral 0 ml Output Urine Total 900 ml # Bowel Movements 2 Laboratory Tests 12/04/17 22:25: White Blood Count 14.8H, Red Blood Count 2.90L, Hemoglobin 9.0L, Hematocrit 27.7L, Mean Corpuscular Volume 95, Mean Corpuscular Hemoglobin 30.9, Mean Corpuscular Hemoglobin Concent 32.4, Red Cell Distribution Width 17.1H, Platelet Count 497H, Mean Platelet Volume 6.5, Neutrophils (%) (Auto) 76.5H, Lymphocytes (%) (Auto) 14.9L, Monocytes (%) (Auto) 5.9, Eosinophils (%) (Auto) 1.9, Basophils (%) (Auto) 0.9, Prothrombin Time 10.2, Prothromb Time International Ratio 1.0, Activated Partial Thromboplast Time 27, Sodium Level 147H, Potassium Level 5.3H, Chloride Level 111H, Carbon Dioxide Level 23, Anion Gap 13, Blood Urea Nitrogen 62H, Creatinine 3.1H, Estimat Glomerular Filtration Rate 15.7, Glucose Level 130H, Lactic Acid Level 1.10, Calcium Level 9.8, Total Bilirubin 0.7, Aspartate Amino Transf (AST/SGOT) 107H, Alanine Aminotransferase (ALT/SGPT) 84H, Alkaline Phosphatase 211H, Total Creatine Kinase 617H, Creatine Kinase MB 1.6, Creatine Kinase MB Relative Index 0.2, Troponin I 0.033, Total Protein 9.4H, Albumin 3.0L, Globulin 6.4, Albumin/Globulin Ratio 0.5L 12/04/17 22:40: Urine Color Yellow, Urine Appearance Slightly cloudy, Urine pH 8, Urine Specific [place] 1.010, Urine Protein 3+H, Urine Glucose (UA) Negative, Urine Ketones 1+H, Urine Blood 5+H, Urine Nitrite PositiveH, Urine Bilirubin Negative , Urine Urobilinogen Normal, Urine Leukocyte Esterase 3+H, Urine RBC 10-15H, Urine WBC 5-10H, Urine Squamous Epithelial Cells Few, Urine Bacteria ModerateH 12/05/17 06:50: White Blood Count 9.1, Red Blood Count 2.88L, Hemoglobin 8.5L, Hematocrit 27.0L , Mean Corpuscular Volume 94, Mean Corpuscular Hemoglobin 29.6, Mean Corpuscular Hemoglobin Concent 31.5L, Red Cell Distribution Width 17.8H, Platelet Count 397, Mean Platelet Volume 6.9, Neutrophils (%) (Auto) 70.0, Lymphocytes (%) (Auto) 19.4L, Monocytes (%) (Auto) 5.5, Eosinophils (%) (Auto) 4.2H, Basophils (%) (Auto) 1.0, Sodium Level 151H, Potassium Level 4.8, Chloride Level 117H, Carbon Dioxide Level 21, Anion Gap 13, Blood Urea Nitrogen 53H, Creatinine 2.8H, Estimat Glomerular Filtration Rate 17.6, Glucose Level 111H, Calcium Level 9.2, Albumin/Globulin Ratio [Pending], Iron Level 43L, Total Iron Binding Capacity 271, Percent Iron Saturation 16, Unsaturated Iron Binding 228, Ferritin 287, C-Reactive Protein, Quantitative 4.7H, Total Protein (PEP) [Pending], Albumin (PEP) [Pending], Globulin (PEP) [Pending], Alpha-1- Globulins [Pending], Wfmwn-4-Whkhnpwyq [Pending], Beta Globulins [Pending], Beta Gamma Globulin [Pending], PEP Abnormal Protein Bands [Pending], Protein Electrophoresis Interpret [Pending] 12/05/17 20:31: Urine Total Protein [Pending], Urine Albumin (%) [Pending], Urine Alpha-1- Globulins (%) [Pending], Urine Pdaaw-5-Xaazulumo (%) [Pending], Urine Beta- Globulin (%) [Pending], Urine Gamma Globulin (%) [Pending], Ur Protein Electrophoresis M-Daniel [Pending], Urine Protein Electrophoresis Intrp [Pending] Current Medications Medications (Trade) Dose Ordered Sig/Tay Route PRN Reason Start Time Stop Time Status Last Admin Dose Admin Acetaminophen (Tylenol) 650 mg Q4H PRN ORAL Fever/Headache/Mild Pain 12/05/17 03:15 01/04/18 03:14 Dextrose 1,000 ml @ 75 mls/hr [id number] IV 12/05/17 15:45 01/04/18 15:44 12/05/17 15:55 Docusate Sodium (Colace) 200 mg Q8HR PRN ORAL Constipation 12/05/17 03:15 01/04/18 03:14 Fluconazole/ Sodium Chloride 100 ml @ 100 mls/hr Q24H IV 12/05/17 15:00 12/12/17 14:59 12/05/17 15:48 Heparin Sodium (Porcine) (Heparin 5000 units/ml) 5,000 units EVERY 12 HOURS SUBQ 12/05/17 09:00 01/04/18 08:59 12/05/17 09:38 Lansoprazole (Prevacid) 30 mg DAILY GT 12/05/17 15:46 01/04/18 15:45 12/05/17 17:03 Levetiracetam (Keppra) 1,000 mg Q12HR ORAL 12/05/17 21:00 01/04/18 20:59 Meropenem 500 mg/ Sodium Chloride 55 ml @ 110 mls/hr Q12H IVPB 12/05/17 16:00 12/10/17 15:59 12/05/17 17:03 Midodrine (Pro-Amatine) 10 mg TID GT 12/05/17 18:00 01/04/18 08:59 12/05/17 17:04 Multivitamins Therapeutic (Therapeutic Multivitamin) 1 ea DAILY ORAL 12/05/17 09:00 01/04/18 08:59 12/05/17 09:33 Saccharomyces Boulardii (Florastor) 250 mg TID ORAL 12/05/17 09:00 01/04/18 08:59 12/05/17 17:04 Sennosides (Senokot) 1 tab QHS PRN GT Constipation 12/05/17 06:27 01/04/18 06:25 Vancomycin HCl (Vanco rx to dose) 1 ea DAILY PRN MISC Per rx protocol 12/05/17 03:15 01/04/18 03:14 Lance Lino MD Dec 05, 2017 21:37
--- NOTE | 2017-12-05 21:40 | History and Physical ---
History & Physical (DB) History & Physical History & Physical Chief Complaint: NA Reason for Hospitalization: UTI History obtained from: Chart and Patient HPI: is a year old female who presents with UTI Past Medical History: Hydrocephalus, AMS Social History: NA Past Medical History: See below Diagnosis: UTI Past Surgical History: RN PHYSICIAN OFFICE shunt Social History:NA Occupational History:NA Pulmonary Consultation Note HPI Patient is a 52 years old female who is bedbound , custodial resident, with past medical history of traumatic brain injury, CVA with left hemiparesis, history of tracheostomy , status post takedown, suprapubic catheter, staghorn renal calculi ,seizure disorder, and multiple hospitalizations for sepsis and recurrent urinary tract infection. she was recently admitted and just discharged 2 days ago. Unable to get any other history from the patient because of her condition and normal verbal state. Admitted with UTI. 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 Surgical History: RN PHYSICIAN OFFICE shunt Pertinent Family History: none Social History: Denies: smoking Last Menstrual Period: unk Now: No Immunizations: other Reviewed Nursing Documentation: PMH: Agreed; PSxH: Agreed Nursing Documentation-PMH Hx Cardiac Problems: Yes - CHF Hx Hypertension: Yes Hx Cancer: No Hx Gastrointestinal Problems: Yes Hx Neurological Problems: Yes - obstructive HYDROCEPHALUS Hx Seizures: Yes Hx Traumatic Brain Injury: Yes Hx Speech Problem: Yes Hx Aphasia: Yes Hx Dysphasia: Yes Hx Neurologic Surgery: Yes - craniotomy Review of Systems Constitutional: Reports: fever All Other Systems: limited - secondary to condition Physical Exam Vital Signs Date Time Temp Pulse Resp B/P (MAP) Pulse Ox O2 Delivery O2 Flow Rate FiO2 12/04/17 21:51 99.7 110 18 96/86 94 Room Air 99.7 vitals with fever and tachycardia Sp02 EP Interpretation: reviewed, normal General Appearance: lethargic, Chronically Ill Head: normocephalic, atraumatic, other - rt craniotomy Eyes: bilateral eye PERRL, bilateral eye EOMI ENT: dry mucus membranes Neck: full range of motion, supple, no meningismus Respiratory: chest non-tender, lungs clear, normal breath sounds Cardiovascular #1: regular rate, rhythm, no murmur Gastrointestinal: normal bowel sounds, non tender, no mass, no organomegaly, no bruit, non-distended Musculoskeletal: back normal Neurologic: other - no change from baseline Skin: warm/dry Medical Decision Making Diagnostic Impression: Primary Impression: Sepsis Qualified Codes: A41.9 - Sepsis, unspecified organism Additional Impressions: UTI (urinary tract infection) Qualified Codes: N30.00 - Acute cystitis without hematuria WEN (acute kidney injury) Dehydration Assessment and Plan Patient presents with fever and has UTI. She grew out gram-negative rods and MRSA in the past. Both are sensitive to Zosyn and vancomycin. She also show evidence of dehydration and ATN. IV hydration given. Patient will be admitted versus transfer based on her insurance. Continue current antibiotics IV fluids Continue SCHEDULING ADMINISTRATOR Medications SQ Heparin O2 PRN Continue feeding Await Cultures Lab Results Impression labs with elevated BUN/creatinine EKG Diagnostic Results Rate: tachycardiac Rhythm: NSR ST Segments: no acute changes Rhythm Strip Diag. Results Rhythm Strip Time: 23:49 EP Interpretation: yes Rate: 100 Rhythm: NSR, no PVC's, no ectopy Chest X-Ray Diagnostic Results Chest X-Ray Diagnostic Results : Chest X-Ray Ordered: Yes # of Views/Limited/Complete: 1 View Indication: Shortness of Breath EP Interpretation: Yes Interpretation: no consolidation, no effusion, no pneumothorax, no acute cardiopulmonary disease, other - RN PHYSICIAN OFFICE shunt DVT Prophylaxis: scd/sqh Code status: full Hospital Classification declaration: Based on this initial evaluation, and depending on the patient's clinical course, I anticipate that this patient will require hospitalization for 2-3 days. Disposition: Once the patient is stable to leave the hospital, I anticipate the patient will likely be discharged to the following environment I spent 70 minutes on this patient's case, and minutes was dedicated to counseling and/or care coordination. Case was discussed with Time of note may not reflect time of encounter. Lance Lino MD Dec 05, 2017 21:40
[2017-12-05] MEDS ORDERED: Meropenem 1 GM in NS 55 ML IVPB SCH (22:00)
--- NOTE | 2017-12-05 22:15 | Consultation ---
DATE OF CONSULTATION: 12/05/2017 INFECTIOUS DISEASES CONSULTATION CONSULTING PHYSICIAN: Kortney Quiñones M.D. REQUESTING PHYSICIAN: Jose Montalvo M.D. REASON FOR CONSULTATION: Sepsis, catheter-associated urinary tract infection, recommendation for antibiotics treatment in a patient with history of cefepime allergy. HISTORY OF PRESENT ILLNESS: The patient is a 52-year-old female with past medical history of CHF, hypertension, GI with dysphagia, hydrocephalus, obstructive seizure disorder, and traumatic brain injury, who was recently discharged from [facility] after she was found to have catheter-associated urinary tract infection due to Staph aureus and Providencia multidrug-resistant species. The patient was treated with vancomycin and ertapenem 2 weeks total and then she grew yeast in her urine, which required fluconazole treatment for two weeks. The patient had workup including renal ultrasound, which showed hydronephrosis with an old stent. Her suprapubic catheter was changed during the hospitalization and she was discharged to finish 2-week course of fluconazole to [facility]. The patient was readmitted last night for fever, hypotension, possible sepsis, and Infectious Disease consultation was requested for further evaluation and management. The patient was found to have temperature of 99.7 with pulse of 110 and blood pressure of 96/86 concerning for sepsis. She was lethargic. The patient also had evidence of urinary tract infection with leukocytosis, so she was started on vancomycin and Zosyn, and ID was consulted. Of note, the patient seems to be more awake, alert, coherent, and answered question appropriately at the time of my interview today. PAST MEDICAL HISTORY: Significant for CHF, hypertension, dysphagia, status post PEG tube, obstructive hydrocephalus, seizure, traumatic brain injury, aphasia, and dysphagia. PAST SURGICAL HISTORY: She had craniotomy. MEDICATIONS: She is currently on vancomycin and Zosyn. For the rest of her medications, please refer to MAR. ALLERGIES: She is allergic to cefepime, unclear what reaction she gets. FAMILY HISTORY: Unable to obtain. SOCIAL HISTORY: The patient lives at [facility]. She had no recent drugs, tobacco, or alcohol abuse. REVIEW OF SYSTEMS: A 14 points of system reviewed were all negative apart from the one I mentioned above in my H and P. PHYSICAL EXAMINATION: VITAL SIGNS: Temperature 98, pulse 80, respirations 18, blood pressure 121/68, and saturation 97% on room air. GENERAL: A middle-aged female, lying in bed, awake, alert, fully responsive to verbal command, not in acute distress, paraplegic. HEENT: She had craniotomy on the right side with big deficit. Pupils reactive to light. Pale sclerae. Moist oral mucosa. No exudate or thrush. NECK: Supple. No lymphadenopathy. Old tracheal surgical scar. CARDIOVASCULAR: She is tachycardic. S1 and S2 normal. LUNGS: She had diminished breathing sounds at the bases. No wheezing or rhonchi. Normal breathing efforts. ABDOMEN: Soft, nontender, and nondistended. Normal bowel sounds. No hepatosplenomegaly or ascites. PEG tube site looks intact. No drainage or pus. EXTREMITIES: No edema or cyanosis. SKIN: Red, erythematous, and inflamed in the sacral area with abrasions. LABORATORY DATA: White count of 9.1, hemoglobin of 8.5, and platelet count of 397,000. BUN of 53 and creatinine of 2.8. Lactic acid of 1.1. AST of 107 and ALT of 84. IMAGING: Chest x-ray showed bilateral minimal right side interstitial disease somewhat diffuse, possibly increased since more recent study similar to prior exam of November 24, appearance is nonspecific. ASSESSMENT AND RECOMMENDATION: 1. Catheter-associated UTI previously due to yeast. We will resume fluconazole to finish her course of two weeks total pending repeated urine culture, which was done in the ER. May need to change the Owens if it grows yeast again. We will order renal ultrasound to rule out obstruction. 2. Sepsis with leukocytosis and hypotension due to the above. We will start meropenem and vancomycin empiric coverage for now pending blood culture. We will deescalate antibiotics based on the culture result. 3. Hydronephrosis of the right kidney. We will repeat renal ultrasound to evaluate for possible obstruction. Continue wide-spectrum antibiotics and fluid. Urology will evaluate the patient. 4. Acute renal failure on top of chronic. Continue hydration. Monitor renal function with renally dosed medicine. Nephrology was consulted. 5. Dehydration. Continue IV fluids. Monitor urine output and electrolytes. 6. Altered mental status due to the above, improving. Continue court recording monitor and neuro-check. Avoid sedatives. Thank you for the consult. ID will continue to follow. Please feel free to call with any question. Kortney Quiñones M.D. DR: aDle JOB#: [id number] CC:
[2017-12-06] VITALS (7 sets, daily range): BP systolic 100–120; BP diastolic 53–75
[2017-12-06] MEDS: Meropenem 500mg in NS 55ml IVPB SCH ×2 (04:26→16:39)
[2017-12-06 07:42] LABS: BASOPHILS % (AUTO) 1.2 % (0.0-2.0); EOSINOPHILS % (AUTO) 11.1 % (0.0-3.0); HEMATOCRIT 26.7 % (37.0-47.0); HEMOGLOBIN 8.7 G/DL (12.0-16.0); LYMPHOCYTES % (AUTO) 22.9 % (20.0-45.0); MEAN CORPUSCULAR VOLUME 93 FL (80-99); MONOCYTES % (AUTO) 6.2 % (1.0-10.0); NEUTROPHILS % (AUTO) 58.6 % (45.0-75.0); PLATELET COUNT 415 K/UL (150-450); RED BLOOD COUNT 2.88 M/UL (4.20-5.40); WHITE BLOOD COUNT 7.7 K/UL (4.8-10.8)
[2017-12-06 08:01] LABS: ALANINE AMINOTRANSFERASE 61 U/L (12-78); ALBUMIN 2.6 G/DL (3.4-5.0); ALBUMIN/GLOBULIN RATIO 0.5 (1.0-2.7); ALKALINE PHOSPHATASE 162 U/L (46-116); ANION GAP 12 mmol/L (5-15); ASPARTATE AMINO TRANSFERASE 55 U/L (15-37); BILIRUBIN,TOTAL 0.2 MG/DL (0.2-1.0); BLOOD UREA NITROGEN 47 mg/dL (7-18); CALCIUM 9.4 MG/DL (8.5-10.1); CARBON DIOXIDE 20 MMOL/L (21-32); CHLORIDE 117 MMOL/L (98-107); CHOLESTEROL 136 MG/DL (< 200); CREATININE 2.6 MG/DL (0.55-1.30); HDL CHOLESTEROL 23 MG/DL (40-60); POTASSIUM 4.2 MMOL/L (3.5-5.1); SODIUM 149 MMOL/L (136-145); TRIGLYCERIDES 281 MG/DL (30-150)
[2017-12-06 08:07] LABS: CREATINE KINASE 326 U/L (26-308); GAMMA GLUTAMYL TRANSPEPTIDASE 127 U/L (5-85); PHOSPHORUS 5.7 MG/DL (2.5-4.9)
[2017-12-06] MEDS: levETIRAcetam 500mg/5ml Liquid ORAL SCH ×2 (08:38→21:42)
[2017-12-06] MEDS: Multivitamin w/Minerals tab ORAL SCH (08:39)
[2017-12-06] MEDS: Midodrine 10mg tab GT SCH ×4 (08:39→17:41)
[2017-12-06] MEDS: Heparin 5000 units/ml inj SUBQ SCH ×2 (08:41→21:43)
--- NOTE | 2017-12-06 08:55 | Urology Progress Note ---
Assessment/Plan Assessment/Plan 1. Hydronephrosis, which is chronic. 2. Renal insufficiency, acute on chronic. 3. Hematuria. 4. Pyuria with UTI and colonization. 5. Proteinuria. 6. Urinary retention, chronic suprapubic tube. 7. Probable neurogenic bladder. 8. Renal cyst. keep SP tube hand irrigated and do PRN abx as ordered monitor renal fxn Subjective Allergies: Coded Allergies: CEFEPIME (Unverified Allergy, Unknown, 11/09/17) Objective Last 24 Hour Vital Signs Date Time Temp Pulse Resp B/P (MAP) Pulse Ox O2 Delivery O2 Flow Rate FiO2 12/06/17 08:00 97.0 69 18 100/69 (79) 97 97.0 12/06/17 04:00 97.3 75 20 101/73 (82) 98 97.3 12/06/17 04:00 70 12/06/17 00:00 97.0 76 22 117/75 (89) 97 97.0 12/06/17 00:00 77 12/05/17 21:00 Room Air 12/05/17 20:00 97.0 91 24 119/78 (92) 97 97.0 12/05/17 20:00 91 12/05/17 16:00 80 12/05/17 16:00 97.7 98 18 119/69 (86) 98 97.7 12/05/17 12:00 98.0 98 18 121/68 (85) 97 98.0 12/05/17 12:00 80 12/05/17 09:00 Room Air Intake and Output 12/05/17 12/06/17 19:00 07:00 Output Total 1800 ml 500 ml Balance -1800 ml -500 ml Output Urine Total 1800 ml 500 ml # Bowel Movements 2 Microbiology Date/Time Source Procedure Growth Status 12/04/17 22:40 Blood Blood Culture - Preliminary Resulted 12/04/17 22:40 Urine,Clean Catch Urine Culture - Preliminary Gram Negative Darren Resulted Current Medications Medications (Trade) Dose Ordered Sig/Tay Route PRN Reason Start Time Stop Time Status Last Admin Dose Admin Acetaminophen (Tylenol) 650 mg Q4H PRN ORAL Fever/Headache/Mild Pain 12/05/17 03:15 01/04/18 03:14 12/06/17 08:40 Dextrose 1,000 ml @ 75 mls/hr [id number] IV 12/05/17 15:45 01/04/18 15:44 12/06/17 04:25 Docusate Sodium (Colace) 200 mg Q8HR PRN ORAL Constipation 12/05/17 03:15 01/04/18 03:14 Fluconazole/ Sodium Chloride 100 ml @ 100 mls/hr Q24H IV 12/05/17 15:00 12/12/17 14:59 12/05/17 15:48 Heparin Sodium (Porcine) (Heparin 5000 units/ml) 5,000 units EVERY 12 HOURS SUBQ 12/05/17 09:00 01/04/18 08:59 12/06/17 08:41 Lansoprazole (Prevacid) 30 mg DAILY GT 12/05/17 15:46 01/04/18 15:45 12/06/17 08:39 Levetiracetam (Keppra) 1,000 mg Q12HR ORAL 12/05/17 21:00 01/04/18 20:59 12/06/17 08:38 Meropenem 500 mg/ Sodium Chloride 55 ml @ 110 mls/hr Q12H IVPB 12/05/17 16:00 12/10/17 15:59 12/06/17 04:26 Midodrine (Pro-Amatine) 10 mg TID GT 12/05/17 18:00 01/04/18 08:59 12/06/17 08:39 Multivitamins Therapeutic (Therapeutic Multivitamin) 1 ea DAILY ORAL 12/05/17 09:00 01/04/18 08:59 12/06/17 08:39 Saccharomyces Boulardii (Florastor) 250 mg TID ORAL 12/05/17 09:00 01/04/18 08:59 12/06/17 08:38 Sennosides (Senokot) 1 tab QHS PRN GT Constipation 12/05/17 06:27 01/04/18 06:25 Vancomycin HCl (Vanco rx to dose) 1 ea DAILY PRN MISC Per rx protocol 12/05/17 03:15 01/04/18 03:14 Laboratory Tests 12/05/17 20:31: Urine Total Protein [Pending], Urine Albumin (%) [Pending], Urine Alpha-1- Globulins (%) [Pending], Urine [id number]-[id number] (%) [Pending], Urine Beta- Globulin (%) [Pending], Urine Gamma Globulin (%) [Pending], Ur Protein Electrophoresis M-Daniel [Pending], Urine Protein Electrophoresis Intrp [Pending] 12/06/17 06:27: White Blood Count 7.7, Red Blood Count 2.88L, Hemoglobin 8.7L, Hematocrit 26.7L , Mean Corpuscular Volume 93, Mean Corpuscular Hemoglobin 30.1, Mean Corpuscular Hemoglobin Concent 32.5, Red Cell Distribution Width 17.0H, Platelet Count 415, Mean Platelet Volume 6.8, Neutrophils (%) (Auto) 58.6, Lymphocytes (%) (Auto) 22.9, Monocytes (%) (Auto) 6.2, Eosinophils (%) (Auto) 11.1H, Basophils (%) (Auto) 1.2, Sodium Level 149H, Potassium Level 4.2, Chloride Level 117H, Carbon Dioxide Level 20L, Anion Gap 12, Blood Urea Nitrogen 47H, Creatinine 2.6H, Estimat Glomerular Filtration Rate 19.2, Glucose Level 95, Hemoglobin A1c [Pending], Uric Acid 7.4H, Calcium Level 9.4, Phosphorus Level 5.7H, Magnesium Level 2.3, Total Bilirubin 0.2, Gamma Glutamyl Transpeptidase 127H, Aspartate Amino Transf (AST/SGOT) 55H, Alanine Aminotransferase (ALT/SGPT) 61, Alkaline Phosphatase 162H, Total Creatine Kinase 326H, Troponin I 0.012, Pro-B-Type Natriuretic Peptide 1008H, Total Protein 8.3H, Albumin 2.6L, Globulin 5.7, Albumin/Globulin Ratio 0.5L, Triglycerides Level 281H, Cholesterol Level 136, LDL Cholesterol 79, HDL Cholesterol 23L, Cholesterol/HDL Ratio 5.9H, Vitamin B12 Level 1589H, Folate 76.2H, Random Vancomycin Level 16.0 Height (Feet): 5 Height (Inches): 5.00 Weight (Pounds): 140 Objective urine is grossly yellow with debris WILBER GALINDO Dec 06, 2017 08:55
--- NOTE | 2017-12-06 09:48 | Nephrology Progress Note ---
Assessment/Plan Problem List: (1) WEN (acute kidney injury) (2) Dehydration with hypernatremia (3) Sepsis (4) Hypotension Assessment Sepsis UTI (urinary tract infection) WEN (acute kidney injury) Dehydration hypernatremia Hypotension has PEG and suprapubic Plan Hydrate IV to D5w avoid nephrotoxics monitor renal parameters continue Sz meds Subjective ROS Limited/Unobtainable: No Constitutional: Reports: malaise Objective Objective Last 24 Hour Vital Signs Date Time Temp Pulse Resp B/P (MAP) Pulse Ox O2 Delivery O2 Flow Rate FiO2 12/06/17 08:00 97.0 69 18 100/69 (79) 97 97.0 12/06/17 04:00 97.3 75 20 101/73 (82) 98 97.3 12/06/17 04:00 70 12/06/17 00:00 97.0 76 22 117/75 (89) 97 97.0 12/06/17 00:00 77 12/05/17 21:00 Room Air 12/05/17 20:00 97.0 91 24 119/78 (92) 97 97.0 12/05/17 20:00 91 12/05/17 16:00 80 12/05/17 16:00 97.7 98 18 119/69 (86) 98 97.7 12/05/17 12:00 98.0 98 18 121/68 (85) 97 98.0 12/05/17 12:00 80 Intake and Output 12/05/17 12/06/17 19:00 07:00 Output Total 1800 ml 500 ml Balance -1800 ml -500 ml Output Urine Total 1800 ml 500 ml # Bowel Movements 2 Laboratory Tests 12/05/17 20:31: Urine Total Protein [Pending], Urine Albumin (%) [Pending], Urine Alpha-1- Globulins (%) [Pending], Urine Xygsb-3-Jxovqoona (%) [Pending], Urine Beta- Globulin (%) [Pending], Urine Gamma Globulin (%) [Pending], Ur Protein Electrophoresis M-Daniel [Pending], Urine Protein Electrophoresis Intrp [Pending] 12/06/17 06:27: White Blood Count 7.7, Red Blood Count 2.88L, Hemoglobin 8.7L, Hematocrit 26.7L , Mean Corpuscular Volume 93, Mean Corpuscular Hemoglobin 30.1, Mean Corpuscular Hemoglobin Concent 32.5, Red Cell Distribution Width 17.0H, Platelet Count 415, Mean Platelet Volume 6.8, Neutrophils (%) (Auto) 58.6, Lymphocytes (%) (Auto) 22.9, Monocytes (%) (Auto) 6.2, Eosinophils (%) (Auto) 11.1H, Basophils (%) (Auto) 1.2, Sodium Level 149H, Potassium Level 4.2, Chloride Level 117H, Carbon Dioxide Level 20L, Anion Gap 12, Blood Urea Nitrogen 47H, Creatinine 2.6H, Estimat Glomerular Filtration Rate 19.2, Glucose Level 95, Hemoglobin A1c 5.1, Uric Acid 7.4H, Calcium Level 9.4, Phosphorus Level 5.7H, Magnesium Level 2.3, Total Bilirubin 0.2, Gamma Glutamyl Transpeptidase 127H, Aspartate Amino Transf (AST/SGOT) 55H, Alanine Aminotransferase (ALT/SGPT) 61, Alkaline Phosphatase 162H, Total Creatine Kinase 326H, Troponin I 0.012, Pro-B-Type Natriuretic Peptide 1008H, Total Protein 8.3H, Albumin 2.6L, Globulin 5.7, Albumin/Globulin Ratio 0.5L, Triglycerides Level 281H, Cholesterol Level 136, LDL Cholesterol 79, HDL Cholesterol 23L, Cholesterol/HDL Ratio 5.9H, Vitamin B12 Level 1589H, Folate 76.2H, Random Vancomycin Level 16.0 Height (Feet): 5 Height (Inches): 5.00 Weight (Pounds): 140 General Appearance: no apparent distress Respiratory/Chest: decreased breath sounds Abdomen: soft Parrish Luo MD Dec 06, 2017 09:47
[2017-12-06] MEDS ORDERED: Vancomycin 750 MG in NS 275 ML IVPB SCH (11:00)
[2017-12-06] MEDS ORDERED: Sterile Water For Irrig 2000ml IRRIG ONE ×2 (15:07→16:30)
[2017-12-06] MEDS ORDERED: Tubing IV Secondary IV ONE (15:07)
--- NOTE | 2017-12-06 15:35 | Pulmonology Progress Note ---
Assessment/Plan Assessment/Plan Pulmonary Follow Up Note HPI Patient is a 52 years old female who is bedbound , long term resident, with past medical history of traumatic brain injury, CVA with left hemiparesis, history of tracheostomy , status post takedown, suprapubic catheter, staghorn renal calculi ,seizure disorder, and multiple hospitalizations for sepsis and recurrent urinary tract infection. she was recently admitted and just discharged 2 days ago. Unable to get any other history from the patient because of her condition and normal verbal state. Admitted with UTI. 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 Pertinent Family History: none Social History: Denies: smoking Last Menstrual Period: unk Now: No Immunizations: other Reviewed Nursing Documentation: PMH: Agreed; PSxH: Agreed Nursing Documentation-PMH Hx Cardiac Problems: Yes - CHF Hx Hypertension: Yes Hx Cancer: No Hx Gastrointestinal Problems: Yes Hx Neurological Problems: Yes - obstructive HYDROCEPHALUS Hx Seizures: Yes Hx Traumatic Brain Injury: Yes Hx Speech Problem: Yes Hx Aphasia: Yes Hx Dysphasia: Yes Hx Neurologic Surgery: Yes - craniotomy Review of Systems Constitutional: Reports: fever All Other Systems: limited - secondary to condition Physical Exam Vital Signs Date Time Temp Pulse Resp B/P (MAP) Pulse Ox O2 Delivery O2 Flow Rate FiO2 12/04/17 21:51 99.7 110 18 96/86 94 Room Air 99.7 vitals with fever and tachycardia Sp02 EP Interpretation: reviewed, normal General Appearance: lethargic, Chronically Ill Head: normocephalic, atraumatic, other - rt craniotomy Eyes: bilateral eye PERRL, bilateral eye EOMI ENT: dry mucus membranes Neck: full range of motion, supple, no meningismus Respiratory: chest non-tender, lungs clear, normal breath sounds Cardiovascular #1: regular rate, rhythm, no murmur Gastrointestinal: normal bowel sounds, non tender, no mass, no organomegaly, no bruit, non-distended Musculoskeletal: back normal Neurologic: other - no change from baseline Skin: warm/dry Medical Decision Making Diagnostic Impression: Primary Impression: Sepsis Qualified Codes: A41.9 - Sepsis, unspecified organism Additional Impressions: UTI (urinary tract infection) Qualified Codes: N30.00 - Acute cystitis without hematuria WEN (acute kidney injury) Dehydration Assessment and Plan Patient presents with fever and has UTI. She grew out gram-negative rods and MRSA in the past. Both are sensitive to Zosyn and vancomycin. She also show evidence of dehydration and ATN. IV hydration given. Patient will be admitted versus transfer based on her insurance. 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 Impression: No acute disease Subjective ROS Limited/Unobtainable: No Allergies: Coded Allergies: CEFEPIME (Unverified Allergy, Unknown, 11/09/17) Objective Last 24 Hour Vital Signs Date Time Temp Pulse Resp B/P (MAP) Pulse Ox O2 Delivery O2 Flow Rate FiO2 12/06/17 12:00 97.2 72 20 120/74 (89) 95 97.2 12/06/17 12:00 78 12/06/17 09:10 97.0 12/06/17 09:00 Room Air 12/06/17 08:00 97.0 69 18 100/69 (79) 97 97.0 12/06/17 07:53 67 12/06/17 04:00 97.3 75 20 101/73 (82) 98 97.3 12/06/17 04:00 70 12/06/17 00:00 97.0 76 22 117/75 (89) 97 97.0 12/06/17 00:00 77 12/05/17 21:00 Room Air 12/05/17 20:00 97.0 91 24 119/78 (92) 97 97.0 12/05/17 20:00 91 12/05/17 16:00 80 12/05/17 16:00 97.7 98 18 119/69 (86) 98 97.7 Intake and Output 12/05/17 12/06/17 19:00 07:00 Output Total 1800 ml 500 ml Balance -1800 ml -500 ml Output Urine Total 1800 ml 500 ml # Bowel Movements 2 Microbiology Date/Time Source Procedure Growth Status 12/04/17 22:40 Blood Blood Culture - Preliminary Resulted 12/04/17 22:25 Blood Blood Culture - Preliminary NO GROWTH AFTER 24 HOURS Resulted 12/04/17 22:40 Urine,Clean Catch Urine Culture - Preliminary Gram Negative Darren Resulted Laboratory Tests 12/05/17 20:31: Urine Total Protein [Pending], Urine Albumin (%) [Pending], Urine Alpha-1- Globulins (%) [Pending], Urine Exefg-7-Pifmurdmk (%) [Pending], Urine Beta- Globulin (%) [Pending], Urine Gamma Globulin (%) [Pending], Ur Protein Electrophoresis M-Daniel [Pending], Urine Protein Electrophoresis Intrp [Pending] 12/06/17 06:27: White Blood Count 7.7, Red Blood Count 2.88L, Hemoglobin 8.7L, Hematocrit 26.7L , Mean Corpuscular Volume 93, Mean Corpuscular Hemoglobin 30.1, Mean Corpuscular Hemoglobin Concent 32.5, Red Cell Distribution Width 17.0H, Platelet Count 415, Mean Platelet Volume 6.8, Neutrophils (%) (Auto) 58.6, Lymphocytes (%) (Auto) 22.9, Monocytes (%) (Auto) 6.2, Eosinophils (%) (Auto) 11.1H, Basophils (%) (Auto) 1.2, Sodium Level 149H, Potassium Level 4.2, Chloride Level 117H, Carbon Dioxide Level 20L, Anion Gap 12, Blood Urea Nitrogen 47H, Creatinine 2.6H, Estimat Glomerular Filtration Rate 19.2, Glucose Level 95, Hemoglobin A1c 5.1, Uric Acid 7.4H, Calcium Level 9.4, Phosphorus Level 5.7H, Magnesium Level 2.3, Total Bilirubin 0.2, Gamma Glutamyl Transpeptidase 127H, Aspartate Amino Transf (AST/SGOT) 55H, Alanine Aminotransferase (ALT/SGPT) 61, Alkaline Phosphatase 162H, Total Creatine Kinase 326H, Troponin I 0.012, Pro-B-Type Natriuretic Peptide 1008H, Total Protein 8.3H, Albumin 2.6L, Globulin 5.7, Albumin/Globulin Ratio 0.5L, Triglycerides Level 281H, Cholesterol Level 136, LDL Cholesterol 79, HDL Cholesterol 23L, Cholesterol/HDL Ratio 5.9H, Vitamin B12 Level 1589H, Folate 76.2H, Random Vancomycin Level 16.0 Current Medications Medications (Trade) Dose Ordered Sig/Tay Route PRN Reason Start Time Stop Time Status Last Admin Dose Admin Acetaminophen (Tylenol) 650 mg Q4H PRN ORAL Fever/Headache/Mild Pain 12/05/17 03:15 01/04/18 03:14 12/06/17 08:40 Dextrose 1,000 ml @ 75 mls/hr [id number] IV 12/05/17 15:45 01/04/18 15:44 12/06/17 04:25 Docusate Sodium (Colace) 200 mg Q8HR PRN ORAL Constipation 12/05/17 03:15 01/04/18 03:14 Fluconazole/ Sodium Chloride 100 ml @ 100 mls/hr Q24H IV 12/05/17 15:00 12/12/17 14:59 12/06/17 15:22 Heparin Sodium (Porcine) (Heparin 5000 units/ml) 5,000 units EVERY 12 HOURS SUBQ 12/05/17 09:00 01/04/18 08:59 12/06/17 08:41 Lansoprazole (Prevacid) 30 mg DAILY GT 12/05/17 15:46 01/04/18 15:45 12/06/17 08:39 Levetiracetam (Keppra) 1,000 mg Q12HR ORAL 12/05/17 21:00 01/04/18 20:59 12/06/17 08:38 Meropenem 500 mg/ Sodium Chloride 55 ml @ 110 mls/hr Q12H IVPB 12/05/17 16:00 12/10/17 15:59 12/06/17 04:26 Midodrine (Pro-Amatine) 10 mg TID GT 12/05/17 18:00 01/04/18 08:59 12/06/17 08:39 Multivitamins Therapeutic (Therapeutic Multivitamin) 1 ea DAILY ORAL 12/05/17 09:00 01/04/18 08:59 12/06/17 08:39 Saccharomyces Boulardii (Florastor) 250 mg TID ORAL 12/05/17 09:00 01/04/18 08:59 12/06/17 14:40 Sennosides (Senokot) 1 tab QHS PRN GT Constipation 12/05/17 06:27 01/04/18 06:25 Vancomycin HCl (Vanco rx to dose) 1 ea DAILY PRN MISC Per rx protocol 12/05/17 03:15 01/04/18 03:14 Lance Lino MD Dec 06, 2017 15:35
--- NOTE | 2017-12-06 15:50 | Infectious Diseases Prog Note ---
Assessment/Plan Problems: (1) Catheter-associated urinary tract infection Assessment & Plan: previously due to yeast , now growing gram negative rods, already on meropenem pending final urine culture , may need to change tompkins . will stop fluconazol, since with her course (2) Sepsis Assessment & Plan: with hypotension due to the above, improved, continue meropenem, and vancomycin pending blood culture (3) Hydronephrosis of right kidney Assessment & Plan: mild on repeated renal US, may need stents removal due to possible malfunctioning and recurrent UTI , continue wide spectrum antibiotics pending culture results (4) WEN (acute kidney injury) Assessment & Plan: continue hydration , monitor renal function with renally dosed meds (5) Dehydration Assessment & Plan: continue IVF, monitor UOP and lytes (6) Altered mental state Assessment & Plan: due to the above, continue tele monitor and neuro check , avoid sedatives Subjective ROS Limited/Unobtainable: Yes Allergies: Coded Allergies: CEFEPIME (Unverified Allergy, Unknown, 11/09/17) Subjective SHE WAS UP IN BED AWAKE AND COMFORTABLE, NO FEVER OR CHILLS, NO COUGH OR SOB, NO DIARRHEA Objective Vital Signs Last 24 Hour Vital Signs Date Time Temp Pulse Resp B/P (MAP) Pulse Ox O2 Delivery O2 Flow Rate FiO2 12/06/17 15:36 97.1 20 103/64 (77) 97 97.1 12/06/17 12:00 97.2 72 20 120/74 (89) 95 97.2 12/06/17 12:00 78 12/06/17 09:10 97.0 12/06/17 09:00 Room Air 12/06/17 08:00 97.0 69 18 100/69 (79) 97 97.0 12/06/17 07:53 67 12/06/17 04:00 97.3 75 20 101/73 (82) 98 97.3 12/06/17 04:00 70 12/06/17 00:00 97.0 76 22 117/75 (89) 97 97.0 12/06/17 00:00 77 12/05/17 21:00 Room Air 12/05/17 20:00 97.0 91 24 119/78 (92) 97 97.0 12/05/17 20:00 91 12/05/17 16:00 80 12/05/17 16:00 97.7 98 18 119/69 (86) 98 97.7 Height (Feet): 5 Height (Inches): 5.00 Weight (Pounds): 140 General Appearance: WD/WN, no acute distress HEENT: normocephalic, atraumatic, anicteric, mucous membranes moist, PERRL, EOMI, pharynx normal, supple, no JVD Respiratory/Chest: chest wall non-tender, normal breath sounds, no respiratory distress, no accessory muscle use, decreased breath sounds Cardiovascular: normal peripheral pulses, normal rate, regular rhythm, no gallop/murmur, no JVD Abdomen: normal bowel sounds, soft, non tender, no organomegaly, non distended , no mass, no scars, other - tube feeding site is good Genitourinary: normal external genitalia Extremities: no cyanosis, no clubbing Skin: no rash, no lesions Neurologic/Psychiatric: alert, responsive Lymphatic: no neck adenopathy, no groin adenopathy Musculoskeletal: normal muscle bulk, no effusion Microbiology Date/Time Source Procedure Growth Status 12/04/17 22:40 Blood Blood Culture - Preliminary Resulted 12/04/17 22:25 Blood Blood Culture - Preliminary NO GROWTH AFTER 24 HOURS Resulted 12/04/17 22:40 Urine,Clean Catch Urine Culture - Preliminary Gram Negative Darren Resulted Laboratory Tests Test 12/05/17 20:31 12/06/17 06:27 Urine Total Protein Pending Urine Albumin (%) Pending Urine Ereud-5-Koacufrdz (%) Pending Urine Sifks-5-Nutfcjopl (%) Pending Urine Beta-Globulin (%) Pending Urine Gamma Globulin (%) Pending Ur Protein Electrophoresis M-Daniel Pending Urine Protein Electrophoresis Intrp Pending White Blood Count 7.7 K/UL (4.8-10.8) Red Blood Count 2.88 M/UL (4.20-5.40) L Hemoglobin 8.7 G/DL (12.0-16.0) L Hematocrit 26.7 % (37.0-47.0) L Mean Corpuscular Volume 93 FL (80-99) Mean Corpuscular Hemoglobin 30.1 PG (27.0-31.0) Mean Corpuscular Hemoglobin Concent 32.5 G/DL (32.0-36.0) Red Cell Distribution Width 17.0 % (11.6-14.8) H Platelet Count 415 K/UL (150-450) Mean Platelet Volume 6.8 FL (6.5-10.1) Neutrophils (%) (Auto) 58.6 % (45.0-75.0) Lymphocytes (%) (Auto) 22.9 % (20.0-45.0) Monocytes (%) (Auto) 6.2 % (1.0-10.0) Eosinophils (%) (Auto) 11.1 % (0.0-3.0) H Basophils (%) (Auto) 1.2 % (0.0-2.0) Sodium Level 149 MMOL/L (136-145) H Potassium Level 4.2 MMOL/L (3.5-5.1) Chloride Level 117 MMOL/L (98-107) H Carbon Dioxide Level 20 MMOL/L (21-32) L Anion Gap 12 mmol/L (5-15) Blood Urea Nitrogen 47 mg/dL (7-18) H Creatinine 2.6 MG/DL (0.55-1.30) H Estimat Glomerular Filtration Rate 19.2 mL/min (>60) Glucose Level 95 MG/DL (74-106) Hemoglobin A1c 5.1 % (4.3-6.0) Uric Acid 7.4 MG/DL (2.6-7.2) H Calcium Level 9.4 MG/DL (8.5-10.1) Phosphorus Level 5.7 MG/DL (2.5-4.9) H Magnesium Level 2.3 MG/DL (1.8-2.4) Total Bilirubin 0.2 MG/DL (0.2-1.0) Gamma Glutamyl Transpeptidase 127 U/L (5-85) H Aspartate Amino Transf (AST/SGOT) 55 U/L (15-37) H Alanine Aminotransferase (ALT/SGPT) 61 U/L (12-78) Alkaline Phosphatase 162 U/L (46-116) H Total Creatine Kinase 326 U/L (26-308) H Troponin I 0.012 ng/mL (0.000-0.056) Pro-B-Type Natriuretic Peptide 1008 pg/mL (0-125) H Total Protein 8.3 G/DL (6.4-8.2) H Albumin 2.6 G/DL (3.4-5.0) L Globulin 5.7 g/dL Albumin/Globulin Ratio 0.5 (1.0-2.7) L Triglycerides Level 281 MG/DL (30-150) H Cholesterol Level 136 MG/DL (< 200) LDL Cholesterol 79 mg/dL (<100) HDL Cholesterol 23 MG/DL (40-60) L Cholesterol/HDL Ratio 5.9 (3.3-4.4) H Vitamin B12 Level 1589 PG/ML (193-986) H Folate 76.2 NG/ML (8.6-58.9) H Random Vancomycin Level 16.0 ug/mL Current Medications Medications (Trade) Dose Ordered Sig/Tay Route PRN Reason Start Time Stop Time Status Last Admin Dose Admin Acetaminophen (Tylenol) 650 mg Q4H PRN ORAL Fever/Headache/Mild Pain 12/05/17 03:15 01/04/18 03:14 12/06/17 08:40 Dextrose 1,000 ml @ 75 mls/hr [id number] IV 12/05/17 15:45 01/04/18 15:44 12/06/17 04:25 Docusate Sodium (Colace) 200 mg Q8HR PRN ORAL Constipation 12/05/17 03:15 01/04/18 03:14 Fluconazole/ Sodium Chloride 100 ml @ 100 mls/hr Q24H IV 12/05/17 15:00 12/12/17 14:59 12/06/17 15:22 Heparin Sodium (Porcine) (Heparin 5000 units/ml) 5,000 units EVERY 12 HOURS SUBQ 12/05/17 09:00 01/04/18 08:59 12/06/17 08:41 Lansoprazole (Prevacid) 30 mg DAILY GT 12/05/17 15:46 01/04/18 15:45 12/06/17 08:39 Levetiracetam (Keppra) 1,000 mg Q12HR ORAL 12/05/17 21:00 01/04/18 20:59 12/06/17 08:38 Meropenem 500 mg/ Sodium Chloride 55 ml @ 110 mls/hr Q12H IVPB 12/05/17 16:00 12/10/17 15:59 12/06/17 04:26 Midodrine (Pro-Amatine) 10 mg TID GT 12/05/17 18:00 01/04/18 08:59 12/06/17 08:39 Multivitamins Therapeutic (Therapeutic Multivitamin) 1 ea DAILY ORAL 12/05/17 09:00 01/04/18 08:59 12/06/17 08:39 Saccharomyces Boulardii (Florastor) 250 mg TID ORAL 12/05/17 09:00 01/04/18 08:59 12/06/17 14:40 Sennosides (Senokot) 1 tab QHS PRN GT Constipation 12/05/17 06:27 01/04/18 06:25 Vancomycin HCl (Vanco rx to dose) 1 ea DAILY PRN MISC Per rx protocol 12/05/17 03:15 01/04/18 03:14 Kortney Quiñones M.D. Dec 06, 2017 15:50
--- NOTE | 2017-12-06 17:15 | General Progress Note ---
Assessment/Plan Status: stable Assessment/Plan #. Anemia of chronic disease -- workup has been reviewed from before and noted to have high ferritin 1500, other labs consistent with ACD --> monitor and started on folic acid daily --> hgb goal >7, transfuse prn basis --> heparin 5k sq tid as ppx #. Hyperproteinemia -- elevated protein on admission, in past modestly high --> send off spep and upep --> r/o mm, could also be 2/2 dehydration #. 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 She also has a history of a seizure disorder that is undefined. --> appreciate neuro recs from prior admission # Respiratory failure and now s/p takedown --> appreciate pulm recs # Urinary tract infection, and multiple episodes of sepsis. --> s/p abx treatment and seen by ID --> on liliana and flucon # Hydronephrosis r kidney --> may need stent exchange per uro, appreciate their recs # Dysphagia s/p peg tube --> getting gtube feeds # Trace right sided pleural effusion # Bioethics/hospice services consulted --> recommended hospice last admission Appreciate consultation greatly! Subjective Date patient seen: Dec 06, 2017 ROS Limited/Unobtainable: Yes Hematologic/Lymphatic: Reports: anemia Allergies: Coded Allergies: CEFEPIME (Unverified Allergy, Unknown, 11/09/17) Subjective Pt awake and alert. No acute events. VSstable. H/H stable. Objective Last 24 Hour Vital Signs Date Time Temp Pulse Resp B/P (MAP) Pulse Ox O2 Delivery O2 Flow Rate FiO2 12/06/17 15:36 97.1 20 103/64 (77) 97 97.1 12/06/17 15:35 79 12/06/17 12:00 97.2 72 20 120/74 (89) 95 97.2 12/06/17 12:00 78 12/06/17 09:10 97.0 12/06/17 09:00 Room Air 12/06/17 08:00 97.0 69 18 100/69 (79) 97 97.0 12/06/17 07:53 67 12/06/17 04:00 97.3 75 20 101/73 (82) 98 97.3 12/06/17 04:00 70 12/06/17 00:00 97.0 76 22 117/75 (89) 97 97.0 12/06/17 00:00 77 12/05/17 21:00 Room Air 12/05/17 20:00 97.0 91 24 119/78 (92) 97 97.0 12/05/17 20:00 91 Intake and Output 12/05/17 12/06/17 19:00 07:00 Output Total 1800 ml 500 ml Balance -1800 ml -500 ml Output Urine Total 1800 ml 500 ml # Bowel Movements 2 Laboratory Tests 12/05/17 20:31: Urine Total Protein [Pending], Urine Albumin (%) [Pending], Urine Alpha-1- Globulins (%) [Pending], Urine Yyxfy-1-Gdspdznyq (%) [Pending], Urine Beta- Globulin (%) [Pending], Urine Gamma Globulin (%) [Pending], Ur Protein Electrophoresis M-Daniel [Pending], Urine Protein Electrophoresis Intrp [Pending] 12/06/17 06:27: White Blood Count 7.7, Red Blood Count 2.88L, Hemoglobin 8.7L, Hematocrit 26.7L , Mean Corpuscular Volume 93, Mean Corpuscular Hemoglobin 30.1, Mean Corpuscular Hemoglobin Concent 32.5, Red Cell Distribution Width 17.0H, Platelet Count 415, Mean Platelet Volume 6.8, Neutrophils (%) (Auto) 58.6, Lymphocytes (%) (Auto) 22.9, Monocytes (%) (Auto) 6.2, Eosinophils (%) (Auto) 11.1H, Basophils (%) (Auto) 1.2, Sodium Level 149H, Potassium Level 4.2, Chloride Level 117H, Carbon Dioxide Level 20L, Anion Gap 12, Blood Urea Nitrogen 47H, Creatinine 2.6H, Estimat Glomerular Filtration Rate 19.2, Glucose Level 95, Hemoglobin A1c 5.1, Uric Acid 7.4H, Calcium Level 9.4, Phosphorus Level 5.7H, Magnesium Level 2.3, Total Bilirubin 0.2, Gamma Glutamyl Transpeptidase 127H, Aspartate Amino Transf (AST/SGOT) 55H, Alanine Aminotransferase (ALT/SGPT) 61, Alkaline Phosphatase 162H, Total Creatine Kinase 326H, Troponin I 0.012, Pro-B-Type Natriuretic Peptide 1008H, Total Protein 8.3H, Albumin 2.6L, Globulin 5.7, Albumin/Globulin Ratio 0.5L, Triglycerides Level 281H, Cholesterol Level 136, LDL Cholesterol 79, HDL Cholesterol 23L, Cholesterol/HDL Ratio 5.9H, Vitamin B12 Level 1589H, Folate 76.2H, Random Vancomycin Level 16.0 Height (Feet): 5 Height (Inches): 5.00 Weight (Pounds): 140 General Appearance: no apparent distress EENT: PERRL/EOMI Neck: normal alignment Cardiovascular: normal peripheral pulses Respiratory/Chest: no respiratory distress Abdomen: no mass Dawit Mcclendon MD Dec 06, 2017 17:14
[2017-12-07] VITALS (8 sets, daily range): BP systolic 112–142; BP diastolic 62–85
[2017-12-07] MEDS: Meropenem 500mg in NS 55ml IVPB SCH ×2 (05:01→16:54)
[2017-12-07 08:16] LABS: BASOPHILS % (AUTO) 0.6 % (0.0-2.0); EOSINOPHILS % (AUTO) 5.7 % (0.0-3.0); HEMATOCRIT 24.9 % (37.0-47.0); HEMOGLOBIN 8.3 G/DL (12.0-16.0); LYMPHOCYTES % (AUTO) 9.2 % (20.0-45.0); MEAN CORPUSCULAR VOLUME 93 FL (80-99); MONOCYTES % (AUTO) 6.2 % (1.0-10.0); NEUTROPHILS % (AUTO) 78.2 % (45.0-75.0); PLATELET COUNT 346 K/UL (150-450); RED BLOOD COUNT 2.68 M/UL (4.20-5.40); RED CELL DISTRIBUTION WIDTH 17.4 % (11.6-14.8); WHITE BLOOD COUNT 5.7 K/UL (4.8-10.8)
[2017-12-07] MEDS: levETIRAcetam 500mg/5ml Liquid ORAL SCH ×2 (08:44→20:23)
[2017-12-07] MEDS: Multivitamin w/Minerals tab ORAL SCH (08:44)
[2017-12-07] MEDS: Heparin 5000 units/ml inj SUBQ SCH ×2 (08:47→20:23)
[2017-12-07 08:55] LABS: ALANINE AMINOTRANSFERASE 53 U/L (12-78); ALBUMIN 2.5 G/DL (3.4-5.0); ALBUMIN/GLOBULIN RATIO 0.5 (1.0-2.7); ALKALINE PHOSPHATASE 173 U/L (46-116); ANION GAP 12 mmol/L (5-15); BILIRUBIN,TOTAL 0.2 MG/DL (0.2-1.0); BLOOD UREA NITROGEN 40 mg/dL (7-18); CARBON DIOXIDE 19 MMOL/L (21-32); CHLORIDE 113 MMOL/L (98-107); CREATININE 2.2 MG/DL (0.55-1.30); PHOSPHORUS 5.4 MG/DL (2.5-4.9); POTASSIUM 4.1 MMOL/L (3.5-5.1); SODIUM 144 MMOL/L (136-145)
[2017-12-07] MEDS: Midodrine 10mg tab GT SCH ×3 (09:00→17:04)
[2017-12-07 09:05] LABS: ASPARTATE AMINO TRANSFERASE 50 U/L (15-37)
--- NOTE | 2017-12-07 09:09 | Urology Progress Note ---
Assessment/Plan Assessment/Plan 1. Hydronephrosis, which is chronic. 2. Renal insufficiency, acute on chronic. 3. Hematuria. 4. Pyuria with UTI and colonization. 5. Proteinuria. 6. Urinary retention, chronic suprapubic tube. 7. Probable neurogenic bladder. 8. Renal cyst. keep SP tube hand irrigated and do PRN abx as ordered monitor renal fxn Subjective Allergies: Coded Allergies: CEFEPIME (Unverified Allergy, Unknown, 11/09/17) Objective Last 24 Hour Vital Signs Date Time Temp Pulse Resp B/P (MAP) Pulse Ox O2 Delivery O2 Flow Rate FiO2 12/07/17 08:00 71 18 112/71 (85) 97 12/07/17 04:00 83 12/07/17 04:00 97.5 102 18 142/85 (104) 94 97.5 12/07/17 00:00 97.7 18 132/71 (91) 57 97.7 12/06/17 21:00 Room Air 12/06/17 20:00 96.5 16 103/63 (76) 74 96.5 12/06/17 20:00 81 12/06/17 17:40 102/53 (69) 77 12/06/17 15:36 97.1 20 103/64 (77) 97 97.1 12/06/17 15:35 79 12/06/17 12:00 97.2 72 20 120/74 (89) 95 97.2 12/06/17 12:00 78 12/06/17 09:10 97.0 Intake and Output 12/06/17 12/07/17 19:00 07:00 Intake Total 560 ml 360 ml Output Total 1200 ml 800 ml Balance -640 ml -440 ml IV Total 150 ml Tube Feeding 410 ml 360 ml Output Urine Total 1200 ml 800 ml # Bowel Movements 2 Microbiology Date/Time Source Procedure Growth Status 12/04/17 22:40 Blood Blood Culture - Preliminary Staphylococcus Sp Coag Neg Resulted 12/04/17 22:40 Urine,Clean Catch Urine Culture - Final Providencia Stuartii Complete 12/05/17 01:30 Rectum VRE Culture - Final Enterococcus Faecium - Vre Complete Current Medications Medications (Trade) Dose Ordered Sig/Tay Route PRN Reason Start Time Stop Time Status Last Admin Dose Admin Acetaminophen (Tylenol) 650 mg Q4H PRN ORAL Fever/Headache/Mild Pain 12/05/17 03:15 01/04/18 03:14 12/06/17 08:40 Dextrose 1,000 ml @ 75 mls/hr [id number] IV 12/05/17 15:45 01/04/18 15:44 12/07/17 05:01 Docusate Sodium (Colace) 200 mg Q8HR PRN ORAL Constipation 12/05/17 03:15 01/04/18 03:14 Fluconazole/ Sodium Chloride 100 ml @ 100 mls/hr Q24H IV 12/05/17 15:00 12/12/17 14:59 12/06/17 15:22 Heparin Sodium (Porcine) (Heparin 5000 units/ml) 5,000 units EVERY 12 HOURS SUBQ 12/05/17 09:00 01/04/18 08:59 12/07/17 08:47 Lansoprazole (Prevacid) 30 mg DAILY GT 12/05/17 15:46 01/04/18 15:45 12/07/17 08:44 Levetiracetam (Keppra) 1,000 mg Q12HR ORAL 12/05/17 21:00 01/04/18 20:59 12/07/17 08:44 Meropenem 500 mg/ Sodium Chloride 55 ml @ 110 mls/hr Q12H IVPB 12/05/17 16:00 12/10/17 15:59 12/07/17 05:01 Midodrine (Pro-Amatine) 10 mg TID GT 12/05/17 18:00 01/04/18 08:59 12/06/17 08:39 Multivitamins Therapeutic (Therapeutic Multivitamin) 1 ea DAILY ORAL 12/05/17 09:00 01/04/18 08:59 12/07/17 08:44 Saccharomyces Boulardii (Florastor) 250 mg TID ORAL 12/05/17 09:00 01/04/18 08:59 12/07/17 08:44 Sennosides (Senokot) 1 tab QHS PRN GT Constipation 12/05/17 06:27 01/04/18 06:25 Vancomycin HCl (Vanco rx to dose) 1 ea DAILY PRN MISC Per rx protocol 12/05/17 03:15 01/04/18 03:14 Laboratory Tests 12/07/17 07:10: White Blood Count 5.7, Red Blood Count 2.68L, Hemoglobin 8.3L, Hematocrit 24.9L , Mean Corpuscular Volume 93, Mean Corpuscular Hemoglobin 31.0, Mean Corpuscular Hemoglobin Concent 33.4, Red Cell Distribution Width 17.4H, Platelet Count 346, Mean Platelet Volume 6.9, Neutrophils (%) (Auto) 78.2H, Lymphocytes (%) (Auto) 9.2L, Monocytes (%) (Auto) 6.2, Eosinophils (%) (Auto) 5.7H, Basophils (%) (Auto) 0.6, Sodium Level 144, Potassium Level 4.1, Chloride Level 113H, Carbon Dioxide Level 19L, Anion Gap 12, Blood Urea Nitrogen 40H, Creatinine 2.2H, Estimat Glomerular Filtration Rate 23.2, Glucose Level 117H, Calcium Level 9.0, Phosphorus Level 5.4H, Magnesium Level 2.0, Total Bilirubin 0.2, Aspartate Amino Transf (AST/SGOT) 50H, Alanine Aminotransferase (ALT/SGPT) 53, Alkaline Phosphatase 173H, Total Protein 8.0, Albumin 2.5L, Globulin 5.5, Albumin/Globulin Ratio 0.5L Height (Feet): 5 Height (Inches): 5.00 Weight (Pounds): 140 Objective urine is grossly yellow with debris WILBER GALINDO Dec 07, 2017 09:09
--- NOTE | 2017-12-07 12:53 | Nephrology Progress Note ---
Assessment/Plan Problem List: (1) WEN (acute kidney injury) Assessment: Cr 2.2 (2) Dehydration with hypernatremia (3) Sepsis (4) Hypotension Assessment Sepsis UTI (urinary tract infection) WEN (acute kidney injury) Dehydration hypernatremia Hypotension has PEG and suprapubic Plan Hydrate IV to D5w avoid nephrotoxics monitor renal parameters continue Sz meds Subjective ROS Limited/Unobtainable: No Constitutional: Reports: malaise Objective Objective Last 24 Hour Vital Signs Date Time Temp Pulse Resp B/P (MAP) Pulse Ox O2 Delivery O2 Flow Rate FiO2 12/07/17 11:59 96.3 71 18 124/74 (91) 90 96.3 12/07/17 11:50 75 12/07/17 09:00 Room Air 12/07/17 08:00 71 18 112/71 (85) 97 12/07/17 07:54 80 12/07/17 04:00 83 12/07/17 04:00 97.5 102 18 142/85 (104) 94 97.5 12/07/17 00:00 97.7 18 132/71 (91) 57 97.7 12/06/17 21:00 Room Air 12/06/17 20:00 96.5 16 103/63 (76) 74 96.5 12/06/17 20:00 81 12/06/17 17:40 102/53 (69) 77 12/06/17 15:36 97.1 20 103/64 (77) 97 97.1 12/06/17 15:35 79 Intake and Output 12/06/17 12/07/17 19:00 07:00 Intake Total 560 ml 360 ml Output Total 1200 ml 800 ml Balance -640 ml -440 ml IV Total 150 ml Tube Feeding 410 ml 360 ml Output Urine Total 1200 ml 800 ml # Bowel Movements 2 Laboratory Tests 12/07/17 07:10: White Blood Count 5.7, Red Blood Count 2.68L, Hemoglobin 8.3L, Hematocrit 24.9L , Mean Corpuscular Volume 93, Mean Corpuscular Hemoglobin 31.0, Mean Corpuscular Hemoglobin Concent 33.4, Red Cell Distribution Width 17.4H, Platelet Count 346, Mean Platelet Volume 6.9, Neutrophils (%) (Auto) 78.2H, Lymphocytes (%) (Auto) 9.2L, Monocytes (%) (Auto) 6.2, Eosinophils (%) (Auto) 5.7H, Basophils (%) (Auto) 0.6, Sodium Level 144, Potassium Level 4.1, Chloride Level 113H, Carbon Dioxide Level 19L, Anion Gap 12, Blood Urea Nitrogen 40H, Creatinine 2.2H, Estimat Glomerular Filtration Rate 23.2, Glucose Level 117H, Calcium Level 9.0, Phosphorus Level 5.4H, Magnesium Level 2.0, Total Bilirubin 0.2, Aspartate Amino Transf (AST/SGOT) 50H, Alanine Aminotransferase (ALT/SGPT) 53, Alkaline Phosphatase 173H, Total Protein 8.0, Albumin 2.5L, Globulin 5.5, Albumin/Globulin Ratio 0.5L Height (Feet): 5 Height (Inches): 5.00 Weight (Pounds): 140 General Appearance: no apparent distress Objective no change Parrish Luo MD Dec 07, 2017 12:52
--- NOTE | 2017-12-07 14:08 | Pulmonology Progress Note ---
Assessment/Plan Assessment/Plan Pulmonary Follow Up Note HPI Patient is a 52 years old female who is bedbound , half-way resident, with past medical history of traumatic brain injury, CVA with left hemiparesis, history of tracheostomy , status post takedown, suprapubic catheter, staghorn renal calculi ,seizure disorder, and multiple hospitalizations for sepsis and recurrent urinary tract infection. she was recently admitted and just discharged 2 days ago. Unable to get any other history from the patient because of her condition and normal verbal state. Admitted with UTI. 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 Surgical History: [employer] shunt Pertinent Family History: none Social History: Denies: smoking Last Menstrual Period: unk Now: No Immunizations: other Reviewed Nursing Documentation: PMH: Agreed; PSxH: Agreed Nursing Documentation-PMH Hx Cardiac Problems: Yes - CHF Hx Hypertension: Yes Hx Cancer: No Hx Gastrointestinal Problems: Yes Hx Neurological Problems: Yes - obstructive HYDROCEPHALUS Hx Seizures: Yes Hx Traumatic Brain Injury: Yes Hx Speech Problem: Yes Hx Aphasia: Yes Hx Dysphasia: Yes Hx Neurologic Surgery: Yes - craniotomy Review of Systems Constitutional: Reports: fever All Other Systems: limited - secondary to condition Physical Exam Vital Signs Date Time Temp Pulse Resp B/P (MAP) Pulse Ox O2 Delivery O2 Flow Rate FiO2 12/04/17 21:51 99.7 110 18 96/86 94 Room Air 99.7 vitals with fever and tachycardia Sp02 EP Interpretation: reviewed, normal General Appearance: lethargic, Chronically Ill Head: normocephalic, atraumatic, other - rt craniotomy Eyes: bilateral eye PERRL, bilateral eye EOMI ENT: dry mucus membranes Neck: full range of motion, supple, no meningismus Respiratory: chest non-tender, lungs clear, normal breath sounds Cardiovascular #1: regular rate, rhythm, no murmur Gastrointestinal: normal bowel sounds, non tender, no mass, no organomegaly, no bruit, non-distended Musculoskeletal: back normal Neurologic: other - no change from baseline Skin: warm/dry Medical Decision Making Diagnostic Impression: Primary Impression: Sepsis Qualified Codes: A41.9 - Sepsis, unspecified organism Additional Impressions: UTI (urinary tract infection) Qualified Codes: N30.00 - Acute cystitis without hematuria WEN (acute kidney injury) Dehydration Assessment and Plan Patient presents with fever and has UTI. She grew out gram-negative rods and MRSA in the past. Both are sensitive to Zosyn and vancomycin. She also show evidence of dehydration and ATN. IV hydration given. Patient will be admitted versus transfer based on her insurance. Continue current antibiotics IV fluids Continue [employer] Medications SQ Heparin O2 PRN Continue feeding Await Cultures Lab Results Impression labs with elevated BUN/creatinine EKG Diagnostic Results Rate: tachycardiac Rhythm: NSR ST Segments: no acute changes Rhythm Strip Diag. Results Rhythm Strip Time: 23:49 EP Interpretation: yes Rate: 100 Rhythm: NSR, no PVC's, no ectopy Chest X-Ray Diagnostic Results Chest X-Ray Diagnostic Results : Chest X-Ray Ordered: Yes # of Views/Limited/Complete: 1 View Indication: Shortness of Breath EP Interpretation: Yes Interpretation: no consolidation, no effusion, no pneumothorax, no acute cardiopulmonary disease, other - [employer] shunt Impression: No acute disease Subjective ROS Limited/Unobtainable: No Allergies: Coded Allergies: CEFEPIME (Unverified Allergy, Unknown, 11/09/17) Objective Last 24 Hour Vital Signs Date Time Temp Pulse Resp B/P (MAP) Pulse Ox O2 Delivery O2 Flow Rate FiO2 12/07/17 12:53 78 115/62 (79) 12/07/17 11:59 96.3 71 18 124/74 (91) 90 96.3 12/07/17 11:50 75 12/07/17 09:00 Room Air 12/07/17 08:00 71 18 112/71 (85) 97 12/07/17 07:54 80 12/07/17 04:00 83 12/07/17 04:00 97.5 102 18 142/85 (104) 94 97.5 12/07/17 00:00 97.7 18 132/71 (91) 57 97.7 12/06/17 21:00 Room Air 12/06/17 20:00 96.5 16 103/63 (76) 74 96.5 12/06/17 20:00 81 12/06/17 17:40 102/53 (69) 77 12/06/17 15:36 97.1 20 103/64 (77) 97 97.1 12/06/17 15:35 79 Intake and Output 12/06/17 12/07/17 19:00 07:00 Intake Total 560 ml 360 ml Output Total 1200 ml 800 ml Balance -640 ml -440 ml IV Total 150 ml Tube Feeding 410 ml 360 ml Output Urine Total 1200 ml 800 ml # Bowel Movements 2 Microbiology Date/Time Source Procedure Growth Status 12/04/17 22:40 Blood Blood Culture - Preliminary Staphylococcus Sp Coag Neg Resulted 12/04/17 22:25 Blood Blood Culture - Preliminary Staphylococcus Sp Coag Neg Resulted 12/05/17 01:30 Nasal Nares MRSA Culture - Final NO METHICILLIN RESISTANT STAPH AUREUS... Complete 12/04/17 22:40 Urine,Clean Catch Urine Culture - Final Providencia Stuartii Complete 12/05/17 01:30 Rectum VRE Culture - Final Enterococcus Faecium - Vre Complete Laboratory Tests 12/07/17 07:10: White Blood Count 5.7, Red Blood Count 2.68L, Hemoglobin 8.3L, Hematocrit 24.9L , Mean Corpuscular Volume 93, Mean Corpuscular Hemoglobin 31.0, Mean Corpuscular Hemoglobin Concent 33.4, Red Cell Distribution Width 17.4H, Platelet Count 346, Mean Platelet Volume 6.9, Neutrophils (%) (Auto) 78.2H, Lymphocytes (%) (Auto) 9.2L, Monocytes (%) (Auto) 6.2, Eosinophils (%) (Auto) 5.7H, Basophils (%) (Auto) 0.6, Sodium Level 144, Potassium Level 4.1, Chloride Level 113H, Carbon Dioxide Level 19L, Anion Gap 12, Blood Urea Nitrogen 40H, Creatinine 2.2H, Estimat Glomerular Filtration Rate 23.2, Glucose Level 117H, Calcium Level 9.0, Phosphorus Level 5.4H, Magnesium Level 2.0, Total Bilirubin 0.2, Aspartate Amino Transf (AST/SGOT) 50H, Alanine Aminotransferase (ALT/SGPT) 53, Alkaline Phosphatase 173H, Total Protein 8.0, Albumin 2.5L, Globulin 5.5, Albumin/Globulin Ratio 0.5L Current Medications Medications (Trade) Dose Ordered Sig/Tay Route PRN Reason Start Time Stop Time Status Last Admin Dose Admin Acetaminophen (Tylenol) 650 mg Q4H PRN ORAL Fever/Headache/Mild Pain 12/05/17 03:15 01/04/18 03:14 12/06/17 08:40 Dextrose 1,000 ml @ 50 mls/hr Q20H IV 12/07/17 12:50 01/04/18 12:49 12/07/17 13:00 Docusate Sodium (Colace) 200 mg Q8HR PRN ORAL Constipation 12/05/17 03:15 01/04/18 03:14 Fluconazole/ Sodium Chloride 100 ml @ 100 mls/hr Q24H IV 12/05/17 15:00 12/12/17 14:59 12/06/17 15:22 Heparin Sodium (Porcine) (Heparin 5000 units/ml) 5,000 units EVERY 12 HOURS SUBQ 12/05/17 09:00 01/04/18 08:59 12/07/17 08:47 Lansoprazole (Prevacid) 30 mg DAILY GT 12/05/17 15:46 01/04/18 15:45 12/07/17 08:44 Levetiracetam (Keppra) 1,000 mg Q12HR ORAL 12/05/17 21:00 01/04/18 20:59 12/07/17 08:44 Meropenem 500 mg/ Sodium Chloride 55 ml @ 110 mls/hr Q12H IVPB 12/05/17 16:00 12/10/17 15:59 12/07/17 05:01 Midodrine (Pro-Amatine) 10 mg TID GT 12/05/17 18:00 01/04/18 08:59 12/06/17 08:39 Multivitamins Therapeutic (Therapeutic Multivitamin) 1 ea DAILY ORAL 12/05/17 09:00 01/04/18 08:59 12/07/17 08:44 Saccharomyces Boulardii (Florastor) 250 mg TID ORAL 12/05/17 09:00 01/04/18 08:59 12/07/17 12:59 Sennosides (Senokot) 1 tab QHS PRN GT Constipation 12/05/17 06:27 01/04/18 06:25 Vancomycin HCl (Vanco rx to dose) 1 ea DAILY PRN MISC Per rx protocol 12/05/17 03:15 01/04/18 03:14 Lance Lino MD Dec 07, 2017 14:08
--- NOTE | 2017-12-07 19:18 | General Progress Note ---
Assessment/Plan Status: stable Assessment/Plan #. Anemia of chronic disease -- workup has been reviewed from before and noted to have high ferritin 1500, other labs consistent with ACD --> Cont to monitor for stability --> started on folic acid daily --> hgb goal >7, transfuse prn basis --> heparin 5k sq tid as ppx #. Hyperproteinemia -- elevated protein on admission, in past modestly high --> send off spep and upep --> r/o mm, could also be 2/2 dehydration #. 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 She also has a history of a seizure disorder that is undefined. --> appreciate neuro recs from prior admission # Respiratory failure and now s/p takedown --> appreciate pulm recs # Urinary tract infection, and multiple episodes of sepsis. --> s/p abx treatment and seen by ID --> on liliana and flucon # Hydronephrosis r kidney --> may need stent exchange per uro, appreciate their recs # Dysphagia s/p peg tube --> getting gtube feeds # Trace right sided pleural effusion # Bioethics/hospice services consulted --> recommended hospice last admission Appreciate consultation greatly! Subjective Date patient seen: Dec 07, 2017 ROS Limited/Unobtainable: Yes Hematologic/Lymphatic: Reports: anemia Allergies: Coded Allergies: CEFEPIME (Unverified Allergy, Unknown, 11/09/17) Subjective Pt awake and alert. No acute events. VS stable. H/H stable. Objective Last 24 Hour Vital Signs Date Time Temp Pulse Resp B/P (MAP) Pulse Ox O2 Delivery O2 Flow Rate FiO2 12/07/17 16:00 96.1 90 16 115/85 (95) 95 96.1 12/07/17 15:16 85 12/07/17 12:53 78 115/62 (79) 12/07/17 11:59 96.3 71 18 124/74 (91) 90 96.3 12/07/17 11:50 75 12/07/17 09:00 Room Air 12/07/17 08:00 71 18 112/71 (85) 97 12/07/17 07:54 80 12/07/17 04:00 83 12/07/17 04:00 97.5 102 18 142/85 (104) 94 97.5 12/07/17 00:00 97.7 18 132/71 (91) 57 97.7 12/06/17 21:00 Room Air 12/06/17 20:00 96.5 16 103/63 (76) 74 96.5 12/06/17 20:00 81 Intake and Output 12/06/17 12/07/17 19:00 07:00 Intake Total 560 ml 360 ml Output Total 1200 ml 800 ml Balance -640 ml -440 ml IV Total 150 ml Tube Feeding 410 ml 360 ml Output Urine Total 1200 ml 800 ml # Bowel Movements 2 Laboratory Tests 12/07/17 07:10: White Blood Count 5.7, Red Blood Count 2.68L, Hemoglobin 8.3L, Hematocrit 24.9L , Mean Corpuscular Volume 93, Mean Corpuscular Hemoglobin 31.0, Mean Corpuscular Hemoglobin Concent 33.4, Red Cell Distribution Width 17.4H, Platelet Count 346, Mean Platelet Volume 6.9, Neutrophils (%) (Auto) 78.2H, Lymphocytes (%) (Auto) 9.2L, Monocytes (%) (Auto) 6.2, Eosinophils (%) (Auto) 5.7H, Basophils (%) (Auto) 0.6, Sodium Level 144, Potassium Level 4.1, Chloride Level 113H, Carbon Dioxide Level 19L, Anion Gap 12, Blood Urea Nitrogen 40H, Creatinine 2.2H, Estimat Glomerular Filtration Rate 23.2, Glucose Level 117H, Calcium Level 9.0, Phosphorus Level 5.4H, Magnesium Level 2.0, Total Bilirubin 0.2, Aspartate Amino Transf (AST/SGOT) 50H, Alanine Aminotransferase (ALT/SGPT) 53, Alkaline Phosphatase 173H, Total Protein 8.0, Albumin 2.5L, Globulin 5.5, Albumin/Globulin Ratio 0.5L Height (Feet): 5 Height (Inches): 5.00 Weight (Pounds): 140 General Appearance: no apparent distress EENT: PERRL/EOMI Neck: normal alignment Cardiovascular: normal peripheral pulses Respiratory/Chest: no respiratory distress Abdomen: non tender Dawit Mcclendon MD Dec 07, 2017 19:18
--- NOTE | 2017-12-07 22:09 | Infectious Diseases Prog Note ---
Assessment/Plan Problems: (1) Catheter-associated urinary tract infection Assessment & Plan: relapsed with the same previous Providencia stuartii , suspect due to ureter stent malfunction , already on meropenem, recommend ureter stent removal , for source control , will deescalate to ertapenem and treat for two weeks (2) Sepsis Assessment & Plan: grew coag negative staph from anaerobic bottles only suspect contaminant , already on vancomycin will repeat blood culture to confirm , (3) Hydronephrosis of right kidney Assessment & Plan: mild on repeated renal US, recommend stents removal due to malfunctioning and recurrent UTI , continue ertapenem for two weeks (4) WEN (acute kidney injury) Assessment & Plan: continue hydration , monitor renal function with renally dosed meds (5) Dehydration Assessment & Plan: continue IVF, monitor UOP and lytes (6) Altered mental state Assessment & Plan: due to the above, continue tele monitor and neuro check , avoid sedatives Subjective Constitutional: Reports: no symptoms HEENT: Reports: no symptoms Respiratory: Reports: no symptoms Breasts: Reports: no symptoms Cardiovascular: Reports: no symptoms Gastrointestinal/Abdominal: Reports: no symptoms Genitourinary: Reports: no symptoms Neurologic: Reports: weakness Psychiatric: Reports: no symptoms Skin: Reports: no symptoms Endocrine: Reports: no symptoms Hematologic: Reports: no symptoms Musculoskeletal: Reports: no symptoms Allergies: Coded Allergies: CEFEPIME (Unverified Allergy, Unknown, 11/09/17) Subjective SHE WAS UP IN BED AWAKE AND COMFORTABLE, NO FEVER OR CHILLS, NO COUGH OR SOB, NO DIARRHEA Objective Vital Signs Last 24 Hour Vital Signs Date Time Temp Pulse Resp B/P (MAP) Pulse Ox O2 Delivery O2 Flow Rate FiO2 12/07/17 20:00 77 12/07/17 16:00 96.1 90 16 115/85 (95) 95 96.1 12/07/17 15:16 85 12/07/17 12:53 78 115/62 (79) 12/07/17 11:59 96.3 71 18 124/74 (91) 90 96.3 12/07/17 11:50 75 12/07/17 09:00 Room Air 12/07/17 08:00 71 18 112/71 (85) 97 12/07/17 07:54 80 12/07/17 04:00 83 10/7/18 04:00 97.5 102 18 142/85 (104) 94 97.5 12/07/17 00:00 97.7 18 132/71 (91) 57 97.7 Height (Feet): 5 Height (Inches): 5.00 Weight (Pounds): 140 General Appearance: WD/WN, no acute distress HEENT: atraumatic, anicteric, mucous membranes moist, PERRL, supple, no JVD, other - right craniotomy Respiratory/Chest: chest wall non-tender, lungs clear, normal breath sounds, no respiratory distress, no accessory muscle use Breasts: no masses Cardiovascular: normal peripheral pulses, normal rate, regular rhythm, no gallop/murmur, no JVD Abdomen: normal bowel sounds, soft, non tender, no organomegaly, non distended , no mass, no scars Genitourinary: normal external genitalia Extremities: no cyanosis, no clubbing Skin: no rash, no lesions, no ulcers Neurologic/Psychiatric: alert, responsive Lymphatic: no neck adenopathy, no groin adenopathy Microbiology Date/Time Source Procedure Growth Status 12/04/17 22:40 Blood Blood Culture - Preliminary Staphylococcus Sp Coag Neg Resulted 12/04/17 22:25 Blood Blood Culture - Preliminary Staphylococcus Sp Coag Neg Resulted 12/05/17 01:30 Nasal Nares MRSA Culture - Final NO METHICILLIN RESISTANT STAPH AUREUS... Complete 12/04/17 22:40 Urine,Clean Catch Urine Culture - Final Providencia Stuartii Complete 12/05/17 01:30 Rectum VRE Culture - Final Enterococcus Faecium - Vre Complete Laboratory Tests Test 12/07/17 07:10 White Blood Count 5.7 K/UL (4.8-10.8) Red Blood Count 2.68 M/UL (4.20-5.40) L Hemoglobin 8.3 G/DL (12.0-16.0) L Hematocrit 24.9 % (37.0-47.0) L Mean Corpuscular Volume 93 FL (80-99) Mean Corpuscular Hemoglobin 31.0 PG (27.0-31.0) Mean Corpuscular Hemoglobin Concent 33.4 G/DL (32.0-36.0) Red Cell Distribution Width 17.4 % (11.6-14.8) H Platelet Count 346 K/UL (150-450) Mean Platelet Volume 6.9 FL (6.5-10.1) Neutrophils (%) (Auto) 78.2 % (45.0-75.0) H Lymphocytes (%) (Auto) 9.2 % (20.0-45.0) L Monocytes (%) (Auto) 6.2 % (1.0-10.0) Eosinophils (%) (Auto) 5.7 % (0.0-3.0) H Basophils (%) (Auto) 0.6 % (0.0-2.0) Sodium Level 144 MMOL/L (136-145) Potassium Level 4.1 MMOL/L (3.5-5.1) Chloride Level 113 MMOL/L (98-107) H Carbon Dioxide Level 19 MMOL/L (21-32) L Anion Gap 12 mmol/L (5-15) Blood Urea Nitrogen 40 mg/dL (7-18) H Creatinine 2.2 MG/DL (0.55-1.30) H Estimat Glomerular Filtration Rate 23.2 mL/min (>60) Glucose Level 117 MG/DL (74-106) H Calcium Level 9.0 MG/DL (8.5-10.1) Phosphorus Level 5.4 MG/DL (2.5-4.9) H Magnesium Level 2.0 MG/DL (1.8-2.4) Total Bilirubin 0.2 MG/DL (0.2-1.0) Aspartate Amino Transf (AST/SGOT) 50 U/L (15-37) H Alanine Aminotransferase (ALT/SGPT) 53 U/L (12-78) Alkaline Phosphatase 173 U/L (46-116) H Total Protein 8.0 G/DL (6.4-8.2) Albumin 2.5 G/DL (3.4-5.0) L Globulin 5.5 g/dL Albumin/Globulin Ratio 0.5 (1.0-2.7) L Current Medications Medications (Trade) Dose Ordered Sig/Tay Route PRN Reason Start Time Stop Time Status Last Admin Dose Admin Acetaminophen (Tylenol) 650 mg Q4H PRN ORAL Fever/Headache/Mild Pain 12/05/17 03:15 01/04/18 03:14 12/06/17 08:40 Dextrose 1,000 ml @ 50 mls/hr Q20H IV 12/07/17 12:50 01/04/18 12:49 12/07/17 13:00 Docusate Sodium (Colace) 200 mg Q8HR PRN ORAL Constipation 12/05/17 03:15 01/04/18 03:14 Fluconazole/ Sodium Chloride 100 ml @ 100 mls/hr Q24H IV 12/05/17 15:00 12/12/17 14:59 12/07/17 15:24 Heparin Sodium (Porcine) (Heparin 5000 units/ml) 5,000 units EVERY 12 HOURS SUBQ 12/05/17 09:00 01/04/18 08:59 12/07/17 20:23 Lansoprazole (Prevacid) 30 mg DAILY GT 12/05/17 15:46 01/04/18 15:45 12/07/17 08:44 Levetiracetam (Keppra) 1,000 mg Q12HR ORAL 12/05/17 21:00 01/04/18 20:59 12/07/17 20:23 Meropenem 500 mg/ Sodium Chloride 55 ml @ 110 mls/hr Q12H IVPB 12/05/17 16:00 12/10/17 15:59 12/07/17 16:54 Midodrine (Pro-Amatine) 10 mg TID GT 12/05/17 18:00 01/04/18 08:59 12/06/17 08:39 Multivitamins Therapeutic (Therapeutic Multivitamin) 1 ea DAILY ORAL 12/05/17 09:00 01/04/18 08:59 12/07/17 08:44 Saccharomyces Boulardii (Florastor) 250 mg TID ORAL 12/05/17 09:00 01/04/18 08:59 12/07/17 17:03 Sennosides (Senokot) 1 tab QHS PRN GT Constipation 12/05/17 06:27 01/04/18 06:25 Vancomycin HCl (Vanco rx to dose) 1 ea DAILY PRN MISC Per rx protocol 12/05/17 03:15 01/04/18 03:14 Kortney Quiñones M.D. Dec 07, 2017 22:09
[2017-12-07] MEDS: Ertapenem 0.5 GM in NS 55 ML IVPB SCH (23:52)
[2017-12-08] VITALS (7 sets, daily range): BP systolic 114–141; BP diastolic 71–83
--- NOTE | 2017-12-08 06:38 | General Progress Note ---
Assessment/Plan Assessment/Plan #. Anemia of chronic disease - workup has been reviewed from before and noted to have high ferritin 1500, other labs consistent with ACD --> Cont to monitor for stability --> started on folic acid daily and will continue --> hgb goal >7, transfuse prn basis --> heparin 5k sq tid as ppx #. Hyperproteinemia -- elevated protein on admission, in past modestly high --> send off spep and upep (PENDING results) --> r/o mm, could also be 2/2 dehydration #. 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 She also has a history of a seizure disorder that is undefined. --> appreciate neuro recs from prior admission # Respiratory failure and now s/p takedown --> appreciate pulm recs # Urinary tract infection, and multiple episodes of sepsis. --> s/p abx treatment and seen by ID --> may need removal of stent # Hydronephrosis r kidney --> may need stent exchange per uro, appreciate their recs # Dysphagia s/p peg tube --> getting gtube feeds # Trace right sided pleural effusion # Bioethics/hospice services consulted --> recommended hospice last admission Appreciate consultation greatly! Subjective Constitutional: Reports: no symptoms HEENT: Reports: no symptoms Cardiovascular: Reports: no symptoms Respiratory: Reports: cough Gastrointestinal/Abdominal: Reports: no symptoms Genitourinary: Reports: no symptoms Neurologic/Psychiatric: Reports: no symptoms Endocrine: Reports: no symptoms Hematologic/Lymphatic: Reports: anemia Allergies: Coded Allergies: CEFEPIME (Unverified Allergy, Unknown, 11/09/17) Subjective Pt awake and alert. No acute events. H/H stable. Objective Last 24 Hour Vital Signs Date Time Temp Pulse Resp B/P (MAP) Pulse Ox O2 Delivery O2 Flow Rate FiO2 12/08/17 04:00 96 12/08/17 04:00 98.0 88 19 116/71 (86) 95 98.0 12/08/17 00:00 90 12/08/17 00:00 97.3 91 18 114/78 (90) 96 97.3 12/07/17 21:00 Room Air 12/07/17 20:00 77 12/07/17 20:00 98.9 85 18 115/78 (90) 98 98.9 12/07/17 16:00 96.1 90 16 115/85 (95) 95 96.1 12/07/17 15:16 85 12/07/17 12:53 78 115/62 (79) 12/07/17 11:59 96.3 71 18 124/74 (91) 90 96.3 12/07/17 11:50 75 12/07/17 09:00 Room Air 12/07/17 08:00 71 18 112/71 (85) 97 12/07/17 07:54 80 Intake and Output 12/07/17 12/08/17 19:00 07:00 Intake Total 910 ml Output Total 1000 ml Balance -90 ml Free Water 120 ml IV Total 150 ml Tube Feeding 640 ml Output Urine Total 1000 ml Laboratory Tests 12/07/17 07:10: White Blood Count 5.7, Red Blood Count 2.68L, Hemoglobin 8.3L, Hematocrit 24.9L , Mean Corpuscular Volume 93, Mean Corpuscular Hemoglobin 31.0, Mean Corpuscular Hemoglobin Concent 33.4, Red Cell Distribution Width 17.4H, Platelet Count 346, Mean Platelet Volume 6.9, Neutrophils (%) (Auto) 78.2H, Lymphocytes (%) (Auto) 9.2L, Monocytes (%) (Auto) 6.2, Eosinophils (%) (Auto) 5.7H, Basophils (%) (Auto) 0.6, Sodium Level 144, Potassium Level 4.1, Chloride Level 113H, Carbon Dioxide Level 19L, Anion Gap 12, Blood Urea Nitrogen 40H, Creatinine 2.2H, Estimat Glomerular Filtration Rate 23.2, Glucose Level 117H, Calcium Level 9.0, Phosphorus Level 5.4H, Magnesium Level 2.0, Total Bilirubin 0.2, Aspartate Amino Transf (AST/SGOT) 50H, Alanine Aminotransferase (ALT/SGPT) 53, Alkaline Phosphatase 173H, Total Protein 8.0, Albumin 2.5L, Globulin 5.5, Albumin/Globulin Ratio 0.5L Height (Feet): 5 Height (Inches): 5.00 Weight (Pounds): 140 General Appearance: no apparent distress EENT: TMs normal Neck: supple Cardiovascular: regular rhythm Respiratory/Chest: lungs clear Abdomen: non tender Extremities: non-tender Edema: no edema noted Leg (L), no edema noted Leg (R) Edema: mild edema Neurologic: alert Dawit Mcclendon MD Dec 08, 2017 06:38
[2017-12-08] MEDS: levETIRAcetam 500mg/5ml Liquid ORAL SCH ×2 (09:25→21:32)
[2017-12-08] MEDS: Midodrine 10mg tab GT SCH ×3 (09:25→17:23)
[2017-12-08] MEDS: Multivitamin w/Minerals tab ORAL SCH (09:25)
[2017-12-08] MEDS: Heparin 5000 units/ml inj SUBQ SCH ×2 (09:27→21:33)
--- NOTE | 2017-12-08 09:29 | Urology Progress Note ---
Assessment/Plan Assessment/Plan 1. Hydronephrosis, which is chronic. 2. Renal insufficiency, acute on chronic. 3. Hematuria. 4. Pyuria with UTI and colonization. 5. Proteinuria. 6. Urinary retention, chronic suprapubic tube. 7. Probable neurogenic bladder. 8. Renal cyst. keep SP tube hand irrigated and do PRN abx as ordered monitor renal fxn get old recs if poss Subjective Allergies: Coded Allergies: CEFEPIME (Unverified Allergy, Unknown, 11/09/17) Objective Last 24 Hour Vital Signs Date Time Temp Pulse Resp B/P (MAP) Pulse Ox O2 Delivery O2 Flow Rate FiO2 12/08/17 08:00 96.6 85 18 118/80 (93) 98 96.6 12/08/17 04:00 96 12/08/17 04:00 98.0 88 19 116/71 (86) 95 98.0 12/08/17 00:00 90 12/08/17 00:00 97.3 91 18 114/78 (90) 96 97.3 12/07/17 21:00 Room Air 12/07/17 20:00 77 12/07/17 20:00 98.9 85 18 115/78 (90) 98 98.9 12/07/17 16:00 96.1 90 16 115/85 (95) 95 96.1 12/07/17 15:16 85 12/07/17 12:53 78 115/62 (79) 12/07/17 11:59 96.3 71 18 124/74 (91) 90 96.3 12/07/17 11:50 75 Intake and Output 12/07/17 12/08/17 19:00 07:00 Intake Total 910 ml 780 ml Output Total 1000 ml 1300 ml Balance -90 ml -520 ml Free Water 120 ml 720 ml IV Total 150 ml Tube Feeding 640 ml 60 ml Output Urine Total 1000 ml 1300 ml Microbiology Date/Time Source Procedure Growth Status 12/04/17 22:40 Blood Blood Culture - Final Staphylococcus Epidermidis Complete 12/05/17 01:30 Nasal Nares MRSA Culture - Final NO METHICILLIN RESISTANT STAPH AUREUS... Complete 12/04/17 22:40 Urine,Clean Catch Urine Culture - Final Providencia Stuartii Complete 12/05/17 01:30 Rectum VRE Culture - Final Enterococcus Faecium - Vre Complete Current Medications Medications (Trade) Dose Ordered Sig/Tay Route PRN Reason Start Time Stop Time Status Last Admin Dose Admin Acetaminophen (Tylenol) 650 mg Q4H PRN ORAL Fever/Headache/Mild Pain 12/05/17 03:15 01/04/18 03:14 12/06/17 08:40 Dextrose 1,000 ml @ 50 mls/hr Q20H IV 12/07/17 12:50 01/04/18 12:49 12/08/17 09:25 Docusate Sodium (Colace) 200 mg Q8HR PRN ORAL Constipation 12/05/17 03:15 01/04/18 03:14 Ertapenem 0.5 gm/ Sodium Chloride 55 ml @ 110 mls/hr Q24H IVPB 12/07/17 22:15 12/12/17 22:14 12/07/17 23:52 Heparin Sodium (Porcine) (Heparin 5000 units/ml) 5,000 units EVERY 12 HOURS SUBQ 12/05/17 09:00 01/04/18 08:59 12/08/17 09:27 Lansoprazole (Prevacid) 30 mg DAILY GT 12/05/17 15:46 01/04/18 15:45 12/08/17 09:25 Levetiracetam (Keppra) 1,000 mg Q12HR ORAL 12/05/17 21:00 01/04/18 20:59 12/08/17 09:25 Midodrine (Pro-Amatine) 10 mg TID GT 12/05/17 18:00 01/04/18 08:59 12/08/17 09:25 Multivitamins Therapeutic (Therapeutic Multivitamin) 1 ea DAILY ORAL 12/05/17 09:00 01/04/18 08:59 12/08/17 09:25 Saccharomyces Boulardii (Florastor) 250 mg TID ORAL 12/05/17 09:00 01/04/18 08:59 12/08/17 09:25 Sennosides (Senokot) 1 tab QHS PRN GT Constipation 12/05/17 06:27 01/04/18 06:25 Vancomycin HCl (Vanco rx to dose) 1 ea DAILY PRN MISC Per rx protocol 12/05/17 03:15 01/04/18 03:14 Vancomycin/Sodium Chloride 250 ml @ 166.667 mls/hr ONCE ONCE IVPB 12/08/17 10:00 12/08/17 11:29 Laboratory Tests 12/08/17 06:40: Random Vancomycin Level 16.1 Height (Feet): 5 Height (Inches): 5.00 Weight (Pounds): 140 Objective urine is grossly yellow with debris WILBER GALINDO Dec 08, 2017 09:29
[2017-12-08] MEDS ORDERED: Vancomycin 750mg/NS 250ml IVPB ONE (10:00)
--- NOTE | 2017-12-08 13:29 | Nephrology Progress Note ---
Assessment/Plan Problem List: (1) WEN (acute kidney injury) Assessment: Cr 2.2 (2) Dehydration with hypernatremia (3) Sepsis (4) Hypotension Assessment Sepsis UTI (urinary tract infection) WEN (acute kidney injury) Dehydration hypernatremia Hypotension has PEG and suprapubic Plan DC IV avoid nephrotoxics monitor renal parameters continue Sz meds ? DC planning Med Surg Subjective ROS Limited/Unobtainable: No Constitutional: Reports: malaise Objective Objective Last 24 Hour Vital Signs Date Time Temp Pulse Resp B/P (MAP) Pulse Ox O2 Delivery O2 Flow Rate FiO2 12/08/17 09:00 Room Air 12/08/17 08:00 96.6 85 18 118/80 (93) 98 96.6 12/08/17 04:00 96 12/08/17 04:00 98.0 88 19 116/71 (86) 95 98.0 12/08/17 00:00 90 12/08/17 00:00 97.3 91 18 114/78 (90) 96 97.3 12/07/17 21:00 Room Air 12/07/17 20:00 77 12/07/17 20:00 98.9 85 18 115/78 (90) 98 98.9 12/07/17 16:00 96.1 90 16 115/85 (95) 95 96.1 12/07/17 15:16 85 Intake and Output 12/07/17 12/08/17 19:00 07:00 Intake Total 910 ml 780 ml Output Total 1000 ml 1300 ml Balance -90 ml -520 ml Free Water 120 ml 720 ml IV Total 150 ml Tube Feeding 640 ml 60 ml Output Urine Total 1000 ml 1300 ml Current Medications Medications (Trade) Dose Ordered Sig/Tay Route PRN Reason Start Time Stop Time Status Last Admin Dose Admin Acetaminophen (Tylenol) 650 mg Q4H PRN ORAL Fever/Headache/Mild Pain 12/05/17 03:15 01/04/18 03:14 12/06/17 08:40 Dextrose 1,000 ml @ 50 mls/hr Q20H IV 12/07/17 12:50 01/04/18 12:49 12/08/17 09:25 Docusate Sodium (Colace) 200 mg Q8HR PRN ORAL Constipation 12/05/17 03:15 01/04/18 03:14 Ertapenem 0.5 gm/ Sodium Chloride 55 ml @ 110 mls/hr Q24H IVPB 12/07/17 22:15 12/12/17 22:14 12/07/17 23:52 Heparin Sodium (Porcine) (Heparin 5000 units/ml) 5,000 units EVERY 12 HOURS SUBQ 12/05/17 09:00 01/04/18 08:59 12/08/17 09:27 Lansoprazole (Prevacid) 30 mg DAILY GT 12/05/17 15:46 01/04/18 15:45 12/08/17 09:25 Levetiracetam (Keppra) 1,000 mg Q12HR ORAL 12/05/17 21:00 01/04/18 20:59 12/08/17 09:25 Midodrine (Pro-Amatine) 10 mg TID GT 12/05/17 18:00 01/04/18 08:59 12/08/17 09:25 Multivitamins Therapeutic (Therapeutic Multivitamin) 1 ea DAILY ORAL 12/05/17 09:00 01/04/18 08:59 12/08/17 09:25 Saccharomyces Boulardii (Florastor) 250 mg TID ORAL 12/05/17 09:00 01/04/18 08:59 12/08/17 09:25 Sennosides (Senokot) 1 tab QHS PRN GT Constipation 12/05/17 06:27 01/04/18 06:25 Vancomycin HCl (Vanco rx to dose) 1 ea DAILY PRN MISC Per rx protocol 12/05/17 03:15 01/04/18 03:14 Laboratory Tests 12/08/17 06:40: Random Vancomycin Level 16.1 Height (Feet): 5 Height (Inches): 5.00 Weight (Pounds): 140 General Appearance: no apparent distress Cardiovascular: normal rate Respiratory/Chest: decreased breath sounds Abdomen: soft Objective no change Parrish Luo MD Dec 08, 2017 13:29
--- NOTE | 2017-12-08 14:51 | Cardiology Report ---
APPROVED REPORT EKG Measurement Heart [id number] Sinus tachycardia Otherwise normal ECG
--- NOTE | 2017-12-08 15:07 | Infectious Diseases Prog Note ---
Assessment/Plan Problems: (1) Catheter-associated urinary tract infection Assessment & Plan: relapsed with the same previous Providencia stuartii , suspect due to ureter stent malfunction , recommend ureter stent removal for source control , will continue ertapenem for two weeks. EOT 12/19/17 (2) Sepsis Assessment & Plan: grew coag negative staph from anaerobic bottles only suspect contaminant , already on vancomycin will repeat blood culture to confirm , (3) Hydronephrosis of right kidney Assessment & Plan: mild on repeated renal US, recommend stents removal due to malfunctioning and recurrent UTI , continue ertapenem for two weeks (4) WEN (acute kidney injury) Assessment & Plan: continue hydration , monitor renal function with renally dosed meds (5) Dehydration Assessment & Plan: continue IVF, monitor UOP and lytes (6) Altered mental state Assessment & Plan: IMPROVED, due to the above, avoid sedatives Subjective Constitutional: Reports: no symptoms HEENT: Reports: no symptoms Respiratory: Reports: no symptoms Breasts: Reports: no symptoms Cardiovascular: Reports: no symptoms Gastrointestinal/Abdominal: Reports: no symptoms Genitourinary: Reports: no symptoms Neurologic: Reports: no symptoms Psychiatric: Reports: no symptoms Skin: Reports: no symptoms Endocrine: Reports: no symptoms Hematologic: Reports: no symptoms Musculoskeletal: Reports: no symptoms Allergies: Coded Allergies: CEFEPIME (Unverified Allergy, Unknown, 11/09/17) Subjective SHE WAS UP IN BED AWAKE AND COMFORTABLE, NO FEVER OR CHILLS, NO COUGH OR SOB, NO DIARRHEA Objective Vital Signs Last 24 Hour Vital Signs Date Time Temp Pulse Resp B/P (MAP) Pulse Ox O2 Delivery O2 Flow Rate FiO2 12/08/17 12:00 96.8 86 18 125/75 (92) 96 96.8 12/08/17 11:41 91 12/08/17 09:00 Room Air 12/08/17 08:00 96.6 85 18 118/80 (93) 98 96.6 12/08/17 07:33 81 12/08/17 04:00 96 12/08/17 04:00 98.0 88 19 116/71 (86) 95 98.0 12/08/17 00:00 90 12/08/17 00:00 97.3 91 18 114/78 (90) 96 97.3 12/07/17 21:00 Room Air 12/07/17 20:00 77 12/07/17 20:00 98.9 85 18 115/78 (90) 98 98.9 12/07/17 16:00 96.1 90 16 115/85 (95) 95 96.1 12/07/17 15:16 85 Height (Feet): 5 Height (Inches): 5.00 Weight (Pounds): 140 General Appearance: WD/WN, no acute distress HEENT: atraumatic, anicteric, mucous membranes moist, PERRL, EOMI, pharynx normal, supple, no JVD Respiratory/Chest: chest wall non-tender, lungs clear, normal breath sounds, no respiratory distress, no accessory muscle use Cardiovascular: normal peripheral pulses, normal rate, regular rhythm, no gallop/murmur, no JVD Abdomen: normal bowel sounds, soft, non tender, no organomegaly, non distended , no mass, no scars Extremities: no cyanosis, no clubbing Skin: no rash, no lesions, no ulcers Neurologic/Psychiatric: alert, responsive Lymphatic: no neck adenopathy, no groin adenopathy Musculoskeletal: no effusion Laboratory Tests Test 12/08/17 06:40 12/08/17 07:10 Random Vancomycin Level 16.1 ug/mL C-Reactive Protein, Quantitative 4.0 mg/dL (0.00-0.90) H Current Medications Medications (Trade) Dose Ordered Sig/Tay Route PRN Reason Start Time Stop Time Status Last Admin Dose Admin Acetaminophen (Tylenol) 650 mg Q4H PRN ORAL Fever/Headache/Mild Pain 12/05/17 03:15 01/04/18 03:14 12/06/17 08:40 Docusate Sodium (Colace) 200 mg Q8HR PRN ORAL Constipation 12/05/17 03:15 01/04/18 03:14 Ertapenem 0.5 gm/ Sodium Chloride 55 ml @ 110 mls/hr Q24H IVPB 12/07/17 22:15 12/12/17 22:14 12/07/17 23:52 Heparin Sodium (Porcine) (Heparin 5000 units/ml) 5,000 units EVERY 12 HOURS SUBQ 12/05/17 09:00 01/04/18 08:59 12/08/17 09:27 Lansoprazole (Prevacid) 30 mg DAILY GT 12/05/17 15:46 01/04/18 15:45 12/08/17 09:25 Levetiracetam (Keppra) 1,000 mg Q12HR ORAL 12/05/17 21:00 01/04/18 20:59 12/08/17 09:25 Midodrine (Pro-Amatine) 10 mg TID GT 12/05/17 18:00 01/04/18 08:59 12/08/17 13:37 Multivitamins Therapeutic (Therapeutic Multivitamin) 1 ea DAILY ORAL 12/05/17 09:00 01/04/18 08:59 12/08/17 09:25 Saccharomyces Boulardii (Florastor) 250 mg TID ORAL 12/05/17 09:00 01/04/18 08:59 12/08/17 13:37 Sennosides (Senokot) 1 tab QHS PRN GT Constipation 12/05/17 06:27 01/04/18 06:25 Vancomycin HCl (Vanco rx to dose) 1 ea DAILY PRN MISC Per rx protocol 12/05/17 03:15 01/04/18 03:14 Kortney Quiñones M.D. Dec 08, 2017 15:07
--- NOTE | 2017-12-08 17:59 | Pulmonology Progress Note ---
Assessment/Plan Problems: (1) Sepsis (2) Catheter-associated urinary tract infection (3) UTI (urinary tract infection) (4) Dehydration (5) Electrolyte imbalance (6) Dehydration, severe Assessment/Plan Optimize pulmonary hygiene/mobilize as tolerated Abx per ID, F/U repeat CX's Monitor volumes and electrolytes TF's as tolerated DVT Px; Hep SQ F/U talent development consultant recs Dispo planning back to SNF Subjective Allergies: Coded Allergies: CEFEPIME (Unverified Allergy, Unknown, 11/09/17) Subjective Events reviewed More alert AFVSS No cough, no SOB, no F/C, marcus TF's Objective Last 24 Hour Vital Signs Date Time Temp Pulse Resp B/P (MAP) Pulse Ox O2 Delivery O2 Flow Rate FiO2 12/08/17 16:00 97.1 89 18 125/83 (97) 95 97.1 12/08/17 12:00 96.8 86 18 125/75 (92) 96 96.8 12/08/17 11:41 91 12/08/17 09:00 Room Air 12/08/17 08:00 96.6 85 18 118/80 (93) 98 96.6 12/08/17 07:33 81 12/08/17 04:00 96 12/08/17 04:00 98.0 88 19 116/71 (86) 95 98.0 12/08/17 00:00 90 12/08/17 00:00 97.3 91 18 114/78 (90) 96 97.3 12/07/17 21:00 Room Air 12/07/17 20:00 77 12/07/17 20:00 98.9 85 18 115/78 (90) 98 98.9 Intake and Output 12/07/17 12/08/17 19:00 07:00 Intake Total 910 ml 780 ml Output Total 1000 ml 1300 ml Balance -90 ml -520 ml Free Water 120 ml 720 ml IV Total 150 ml Tube Feeding 640 ml 60 ml Output Urine Total 1000 ml 1300 ml General Appearance: cachetic HEENT: normocephalic, atraumatic, anicteric, mucous membranes moist Respiratory/Chest: chest wall non-tender, lungs clear, normal breath sounds Cardiovascular: normal peripheral pulses, normal rate, regular rhythm Abdomen: normal bowel sounds, soft, non tender, no organomegaly, non distended , other - GT, SPC Extremities: no cyanosis, no clubbing, no edema Laboratory Tests 12/08/17 06:40: Random Vancomycin Level 16.1 12/08/17 07:10: C-Reactive Protein, Quantitative 4.0H Current Medications Medications (Trade) Dose Ordered Sig/Tay Route PRN Reason Start Time Stop Time Status Last Admin Dose Admin Acetaminophen (Tylenol) 650 mg Q4H PRN ORAL Fever/Headache/Mild Pain 12/05/17 03:15 01/04/18 03:14 12/06/17 08:40 Docusate Sodium (Colace) 200 mg Q8HR PRN ORAL Constipation 12/05/17 03:15 01/04/18 03:14 Ertapenem 0.5 gm/ Sodium Chloride 55 ml @ 110 mls/hr Q24H IVPB 12/07/17 22:15 12/12/17 22:14 12/07/17 23:52 Heparin Sodium (Porcine) (Heparin 5000 units/ml) 5,000 units EVERY 12 HOURS SUBQ 12/05/17 09:00 01/04/18 08:59 12/08/17 09:27 Lansoprazole (Prevacid) 30 mg DAILY GT 12/05/17 15:46 01/04/18 15:45 12/08/17 09:25 Levetiracetam (Keppra) 1,000 mg Q12HR ORAL 12/05/17 21:00 01/04/18 20:59 12/08/17 09:25 Midodrine (Pro-Amatine) 10 mg TID GT 12/05/17 18:00 01/04/18 08:59 12/08/17 17:23 Multivitamins Therapeutic (Therapeutic Multivitamin) 1 ea DAILY ORAL 12/05/17 09:00 01/04/18 08:59 12/08/17 09:25 Saccharomyces Boulardii (Florastor) 250 mg TID ORAL 12/05/17 09:00 01/04/18 08:59 12/08/17 17:23 Sennosides (Senokot) 1 tab QHS PRN GT Constipation 12/05/17 06:27 01/04/18 06:25 Vancomycin HCl (Vanco rx to dose) 1 ea DAILY PRN MISC Per rx protocol 12/05/17 03:15 01/04/18 03:14 Jose Montalvo MD Dec 08, 2017 17:59
[2017-12-08] MEDS: Ertapenem 0.5 GM in NS 55 ML IVPB SCH (22:14)
[2017-12-09 04:00] VITALS: BP 127/69
[2017-12-09] MEDS ORDERED: Docusate 100mg cap ORAL PRN (06:00)
[2017-12-09 06:10] LABS: BASOPHILS % (AUTO) 0.9 % (0.0-2.0); EOSINOPHILS % (AUTO) 13.5 % (0.0-3.0); HEMATOCRIT 26.9 % (37.0-47.0); HEMOGLOBIN 9.2 G/DL (12.0-16.0); LYMPHOCYTES % (AUTO) 26.7 % (20.0-45.0); MEAN CORPUSCULAR VOLUME 93 FL (80-99); PLATELET COUNT 426 K/UL (150-450); RED BLOOD COUNT 2.91 M/UL (4.20-5.40); RED CELL DISTRIBUTION WIDTH 16.7 % (11.6-14.8); WHITE BLOOD COUNT 7.8 K/UL (4.8-10.8)
[2017-12-09 06:39] LABS: ALANINE AMINOTRANSFERASE 126 U/L (12-78); ALBUMIN 2.7 G/DL (3.4-5.0); ALBUMIN/GLOBULIN RATIO 0.4 (1.0-2.7); ALKALINE PHOSPHATASE 217 U/L (46-116); ANION GAP 9 mmol/L (5-15); ASPARTATE AMINO TRANSFERASE 196 U/L (15-37); BILIRUBIN,TOTAL 0.1 MG/DL (0.2-1.0); BLOOD UREA NITROGEN 40 mg/dL (7-18); CALCIUM 9.7 MG/DL (8.5-10.1); CARBON DIOXIDE 24 MMOL/L (21-32); CHLORIDE 109 MMOL/L (98-107); CREATININE 1.8 MG/DL (0.55-1.30); PHOSPHORUS 7.2 MG/DL (2.5-4.9); POTASSIUM 5.4 MMOL/L (3.5-5.1); SODIUM 141 MMOL/L (136-145)
[2017-12-09 08:00] VITALS: BP 97/63
--- NOTE | 2017-12-09 08:30 | General Progress Note ---
Assessment/Plan Assessment/Plan #. Anemia of chronic disease - workup has been reviewed from before and noted to have high ferritin 1500, other labs consistent with ACD --> Cont to monitor for stability --> started on folic acid daily and will continue --> ok to continue heparin 5k sq tid as ppx #. Hyperproteinemia -- elevated protein on admission, in past modestly high --> send off spep and upep (PENDING results) --> r/o mm, could also be 2/2 dehydration #. 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 She also has a history of a seizure disorder that is undefined. --> appreciate neuro recs from prior admission # Respiratory failure and now s/p takedown --> appreciate pulm recs # Urinary tract infection, and multiple episodes of sepsis. --> s/p abx treatment and seen by ID --> may need removal of stent # Hydronephrosis r kidney --> may need stent exchange per uro, appreciate their recs # Dysphagia s/p peg tube --> getting gtube feeds # Trace right sided pleural effusion # Bioethics/hospice services consulted --> recommended hospice last admission Appreciate consultation greatly! Subjective Constitutional: Denies: no symptoms, chills, diaphoresis, fever, malaise, weakness, other HEENT: Denies: no symptoms, eye pain, blurred vision, tearing, double vision, ear pain, ear discharge, nose pain, nose congestion, throat pain, throat swelling, mouth pain, mouth swelling, other Cardiovascular: Denies: no symptoms, chest pain, edema, irregular heart rate, lightheadedness, palpitations, syncope, other Respiratory: Denies: no symptoms, cough, orthopnea, shortness of breath, SOB with excertion, SOB at rest, sputum, stridor, wheezing, other Gastrointestinal/Abdominal: Denies: no symptoms, abdomen distended, abdominal pain, black stools, tarry stools, blood in stool, constipated, diarrhea, difficulty swallowing, nausea, poor appetite, poor fluid intake, rectal bleeding , vomiting, other Genitourinary: Denies: no symptoms, burning, discharge, frequency, flank pain, hematuria, incontinence, pain, urgency, other Neurologic/Psychiatric: Denies: no symptoms, anxiety, depressed, emotional problems, headache, numbness, paresthesia, pre-existing deficit, seizure, tingling, tremors, weakness, other Endocrine: Denies: no symptoms, excessive sweating, flushing, intolerance to cold, intolerance to heat, increased hunger, increased thirst, increased urine, unexplained weight gain, unexplained weight loss, other Allergies: Coded Allergies: CEFEPIME (Unverified Allergy, Unknown, 11/09/17) Subjective Pt awake and alert. No acute events. H/H stable. gtube site c/d/i Objective Last 24 Hour Vital Signs Date Time Temp Pulse Resp B/P (MAP) Pulse Ox O2 Delivery O2 Flow Rate FiO2 12/09/17 04:00 97.0 81 20 127/69 (88) 97 97.0 12/08/17 23:54 72 16 127/75 (92) 96 12/08/17 21:00 Room Air 12/08/17 20:00 97.2 70 16 141/80 (100) 98 97.2 12/08/17 16:00 97.1 89 18 125/83 (97) 95 97.1 12/08/17 12:00 96.8 86 18 125/75 (92) 96 96.8 12/08/17 11:41 91 12/08/17 09:00 Room Air Intake and Output 12/08/17 12/09/17 19:00 07:00 Intake Total 660 ml 560 ml Output Total 850 ml Balance -190 ml 560 ml Free Water 200 ml Tube Feeding 660 ml 360 ml Output Urine Total 850 ml # Bowel Movements 1 Laboratory Tests 12/09/17 05:10: White Blood Count 7.8, Red Blood Count 2.91L, Hemoglobin 9.2L, Hematocrit 26.9L , Mean Corpuscular Volume 93, Mean Corpuscular Hemoglobin 31.5H, Mean Corpuscular Hemoglobin Concent 34.1, Red Cell Distribution Width 16.7H, Platelet Count 426, Mean Platelet Volume 7.0, Neutrophils (%) (Auto) 52.0, Lymphocytes (%) (Auto) 26.7, Monocytes (%) (Auto) 7.0, Eosinophils (%) (Auto) 13.5H, Basophils (%) (Auto) 0.9, Sodium Level 141, Potassium Level 5.4H, Chloride Level 109H, Carbon Dioxide Level 24, Anion Gap 9, Blood Urea Nitrogen 40H, Creatinine 1.8H, Estimat Glomerular Filtration Rate 29.3, Glucose Level 92 , Uric Acid 6.2, Calcium Level 9.7, Phosphorus Level 7.2H, Magnesium Level 2.4, Total Bilirubin 0.1L, Aspartate Amino Transf (AST/SGOT) 196H, Alanine Aminotransferase (ALT/SGPT) 126H, Alkaline Phosphatase 217H, Pro-B-Type Natriuretic Peptide 1500H, Total Protein 8.9H, Albumin 2.7L, Globulin 6.2, Albumin/Globulin Ratio 0.4L Height (Feet): 5 Height (Inches): 5.00 Weight (Pounds): 140 General Appearance: no apparent distress EENT: TMs normal Neck: normal alignment Cardiovascular: regular rhythm Respiratory/Chest: normal breath sounds Abdomen: soft Extremities: non-tender Edema: no edema noted Leg (L), no edema noted Leg (R) Edema: mild edema Neurologic: alert Skin: warm/dry Dawit Mcclendon MD Dec 09, 2017 08:30
--- NOTE | 2017-12-09 09:07 | Pulmonology Progress Note ---
Assessment/Plan Problems: (1) Sepsis (2) Catheter-associated urinary tract infection (3) UTI (urinary tract infection) (4) Dehydration (5) Electrolyte imbalance (6) Dehydration, severe (7) Abnormal LFTs Assessment/Plan Optimize pulmonary hygiene/mobilize as tolerated Abx per ID, F/U repeat CX's Monitor volumes and electrolytes TF's as tolerated Check abd US, GI eval DVT Px; Hep SQ F/U agriculture consultant recs Dispo planning back to SNF Subjective Allergies: Coded Allergies: CEFEPIME (Unverified Allergy, Unknown, 11/09/17) Subjective LFTs inc AFVSS No cough, no SOB, no F/C, marcus TF's Objective Last 24 Hour Vital Signs Date Time Temp Pulse Resp B/P (MAP) Pulse Ox O2 Delivery O2 Flow Rate FiO2 12/09/17 04:00 97.0 81 20 127/69 (88) 97 97.0 12/08/17 23:54 72 16 127/75 (92) 96 12/08/17 21:00 Room Air 12/08/17 20:00 97.2 70 16 141/80 (100) 98 97.2 12/08/17 16:00 97.1 89 18 125/83 (97) 95 97.1 12/08/17 12:00 96.8 86 18 125/75 (92) 96 96.8 12/08/17 11:41 91 Intake and Output 12/08/17 12/09/17 19:00 07:00 Intake Total 660 ml 560 ml Output Total 850 ml Balance -190 ml 560 ml Free Water 200 ml Tube Feeding 660 ml 360 ml Output Urine Total 850 ml # Bowel Movements 1 General Appearance: cachetic HEENT: normocephalic, atraumatic, anicteric, mucous membranes moist Respiratory/Chest: chest wall non-tender, lungs clear Cardiovascular: normal peripheral pulses, normal rate, regular rhythm Abdomen: normal bowel sounds, soft, non tender, no organomegaly, non distended , other - SPC Extremities: no cyanosis, no clubbing, no edema, other - contracted Laboratory Tests 12/09/17 05:10: White Blood Count 7.8, Red Blood Count 2.91L, Hemoglobin 9.2L, Hematocrit 26.9L , Mean Corpuscular Volume 93, Mean Corpuscular Hemoglobin 31.5H, Mean Corpuscular Hemoglobin Concent 34.1, Red Cell Distribution Width 16.7H, Platelet Count 426, Mean Platelet Volume 7.0, Neutrophils (%) (Auto) 52.0, Lymphocytes (%) (Auto) 26.7, Monocytes (%) (Auto) 7.0, Eosinophils (%) (Auto) 13.5H, Basophils (%) (Auto) 0.9, Sodium Level 141, Potassium Level 5.4H, Chloride Level 109H, Carbon Dioxide Level 24, Anion Gap 9, Blood Urea Nitrogen 40H, Creatinine 1.8H, Estimat Glomerular Filtration Rate 29.3, Glucose Level 92 , Uric Acid 6.2, Calcium Level 9.7, Phosphorus Level 7.2H, Magnesium Level 2.4, Total Bilirubin 0.1L, Aspartate Amino Transf (AST/SGOT) 196H, Alanine Aminotransferase (ALT/SGPT) 126H, Alkaline Phosphatase 217H, Pro-B-Type Natriuretic Peptide 1500H, Total Protein 8.9H, Albumin 2.7L, Globulin 6.2, Albumin/Globulin Ratio 0.4L Current Medications Medications (Trade) Dose Ordered Sig/Tay Route PRN Reason Start Time Stop Time Status Last Admin Dose Admin Acetaminophen (Tylenol) 650 mg Q4H PRN ORAL Fever/Headache/Mild Pain 12/09/17 03:15 01/04/18 03:14 Docusate Sodium (Colace) 200 mg Q8HR PRN ORAL Constipation 12/09/17 06:00 01/04/18 03:14 Ertapenem 0.5 gm/ Sodium Chloride 55 ml @ 110 mls/hr Q24H IVPB 12/09/17 22:15 12/12/17 22:14 Heparin Sodium (Porcine) (Heparin 5000 units/ml) 5,000 units EVERY 12 HOURS SUBQ 12/09/17 09:00 01/04/18 08:59 Lansoprazole (Prevacid) 30 mg DAILY GT 12/09/17 09:00 01/04/18 15:45 Levetiracetam (Keppra) 1,000 mg Q12HR ORAL 12/09/17 09:00 01/04/18 20:59 Midodrine (Pro-Amatine) 10 mg TID GT 12/09/17 09:00 01/04/18 08:59 Multivitamins Therapeutic (Therapeutic Multivitamin) 1 ea DAILY ORAL 12/09/17 09:00 01/04/18 08:59 Saccharomyces Boulardii (Florastor) 250 mg TID ORAL 12/09/17 09:00 01/04/18 08:59 Sennosides (Senokot) 1 tab QHS PRN GT Constipation 12/09/17 21:00 01/04/18 06:25 Vancomycin HCl (Vanco rx to dose) 1 ea DAILY PRN MISC Per rx protocol 12/09/17 09:00 01/04/18 03:14 Jose Montalvo MD Dec 09, 2017 09:07
[2017-12-09] MEDS: Midodrine 10mg tab GT SCH ×4 (09:14→18:43)
[2017-12-09] MEDS: levETIRAcetam 500mg/5ml Liquid ORAL SCH ×2 (09:17→20:09)
[2017-12-09] MEDS: Multivitamin w/Minerals tab ORAL SCH (09:17)
[2017-12-09] MEDS: Heparin 5000 units/ml inj SUBQ SCH ×2 (09:20→20:13)
--- NOTE | 2017-12-09 09:33 | Urology Progress Note ---
Assessment/Plan Assessment/Plan 1. Hydronephrosis, which is chronic. 2. Renal insufficiency, acute on chronic. 3. Hematuria. 4. Pyuria with UTI and colonization. 5. Proteinuria. 6. Urinary retention, chronic suprapubic tube. 7. Probable neurogenic bladder. 8. Renal cyst. keep SP tube, last exchanged 11/18 secured to pt's leg hand irrigated and do PRN abx as ordered monitor renal fxn get old recs if poss Subjective Allergies: Coded Allergies: CEFEPIME (Unverified Allergy, Unknown, 11/09/17) Subjective all noted Objective Last 24 Hour Vital Signs Date Time Temp Pulse Resp B/P (MAP) Pulse Ox O2 Delivery O2 Flow Rate FiO2 12/09/17 04:00 97.0 81 20 127/69 (88) 97 97.0 12/08/17 23:54 72 16 127/75 (92) 96 12/08/17 21:00 Room Air 12/08/17 20:00 97.2 70 16 141/80 (100) 98 97.2 12/08/17 16:00 97.1 89 18 125/83 (97) 95 97.1 12/08/17 12:00 96.8 86 18 125/75 (92) 96 96.8 12/08/17 11:41 91 Intake and Output 12/08/17 12/09/17 19:00 07:00 Intake Total 660 ml 560 ml Output Total 850 ml Balance -190 ml 560 ml Free Water 200 ml Tube Feeding 660 ml 360 ml Output Urine Total 850 ml # Bowel Movements 1 Microbiology Date/Time Source Procedure Growth Status 12/04/17 22:40 Blood Blood Culture - Final Staphylococcus Epidermidis Complete 12/05/17 01:30 Nasal Nares MRSA Culture - Final NO METHICILLIN RESISTANT STAPH AUREUS... Complete 12/04/17 22:40 Urine,Clean Catch Urine Culture - Final Providencia Stuartii Complete 12/05/17 01:30 Rectum - Final Complete Current Medications Medications (Trade) Dose Ordered Sig/Tay Route PRN Reason Start Time Stop Time Status Last Admin Dose Admin Acetaminophen (Tylenol) 650 mg Q4H PRN ORAL Fever/Headache/Mild Pain 12/09/17 03:15 01/04/18 03:14 Docusate Sodium (Colace) 200 mg Q8HR PRN ORAL Constipation 12/09/17 06:00 01/04/18 03:14 Ertapenem 0.5 gm/ Sodium Chloride 55 ml @ 110 mls/hr Q24H IVPB 12/09/17 22:15 12/12/17 22:14 Heparin Sodium (Porcine) (Heparin 5000 units/ml) 5,000 units EVERY 12 HOURS SUBQ 12/09/17 09:00 01/04/18 08:59 Lansoprazole (Prevacid) 30 mg DAILY GT 12/09/17 09:00 01/04/18 15:45 Levetiracetam (Keppra) 1,000 mg Q12HR ORAL 12/09/17 09:00 01/04/18 20:59 Midodrine (Pro-Amatine) 10 mg TID GT 12/09/17 09:00 01/04/18 08:59 Multivitamins Therapeutic (Therapeutic Multivitamin) 1 ea DAILY ORAL 12/09/17 09:00 01/04/18 08:59 Saccharomyces Boulardii (Florastor) 250 mg TID ORAL 12/09/17 09:00 01/04/18 08:59 Sennosides (Senokot) 1 tab QHS PRN GT Constipation 12/09/17 21:00 01/04/18 06:25 Vancomycin HCl (Vanco rx to dose) 1 ea DAILY PRN MISC Per rx protocol 12/09/17 09:00 01/04/18 03:14 Laboratory Tests 12/09/17 05:10: White Blood Count 7.8, Red Blood Count 2.91L, Hemoglobin 9.2L, Hematocrit 26.9L , Mean Corpuscular Volume 93, Mean Corpuscular Hemoglobin 31.5H, Mean Corpuscular Hemoglobin Concent 34.1, Red Cell Distribution Width 16.7H, Platelet Count 426, Mean Platelet Volume 7.0, Neutrophils (%) (Auto) 52.0, Lymphocytes (%) (Auto) 26.7, Monocytes (%) (Auto) 7.0, Eosinophils (%) (Auto) 13.5H, Basophils (%) (Auto) 0.9, Sodium Level 141, Potassium Level 5.4H, Chloride Level 109H, Carbon Dioxide Level 24, Anion Gap 9, Blood Urea Nitrogen 40H, Creatinine 1.8H, Estimat Glomerular Filtration Rate 29.3, Glucose Level 92 , Uric Acid 6.2, Calcium Level 9.7, Phosphorus Level 7.2H, Magnesium Level 2.4, Total Bilirubin 0.1L, Aspartate Amino Transf (AST/SGOT) 196H, Alanine Aminotransferase (ALT/SGPT) 126H, Alkaline Phosphatase 217H, Pro-B-Type Natriuretic Peptide 1500H, Total Protein 8.9H, Albumin 2.7L, Globulin 6.2, Albumin/Globulin Ratio 0.4L Height (Feet): 5 Height (Inches): 5.00 Weight (Pounds): 140 Objective urine is grossly yellow with debris WILBER GALINDO Dec 09, 2017 09:33
[2017-12-09 12:00] VITALS: BP 108/66
--- NOTE | 2017-12-09 13:08 | Nephrology Progress Note ---
Assessment/Plan Problem List: (1) WEN (acute kidney injury) Assessment: Cr down to1.8 (2) Dehydration with hypernatremia (3) Sepsis (4) Hypotension Assessment K elevated Sepsis UTI (urinary tract infection) WEN (acute kidney injury) Dehydration hypernatremia Hypotension has PEG and suprapubic Plan Kayexelate DC IV avoid nephrotoxics monitor renal parameters continue Sz meds ? DC planning Med Surg Subjective ROS Limited/Unobtainable: No Objective Objective Last 24 Hour Vital Signs Date Time Temp Pulse Resp B/P (MAP) Pulse Ox O2 Delivery O2 Flow Rate FiO2 12/09/17 09:00 Room Air 12/09/17 08:00 96.5 96.5 12/09/17 08:00 81 17 97/63 (74) 96 12/09/17 04:00 97.0 81 20 127/69 (88) 97 97.0 12/08/17 23:54 72 16 127/75 (92) 96 12/08/17 21:00 Room Air 12/08/17 20:00 97.2 70 16 141/80 (100) 98 97.2 12/08/17 16:00 97.1 89 18 125/83 (97) 95 97.1 Intake and Output 12/08/17 12/09/17 19:00 07:00 Intake Total 660 ml 560 ml Output Total 850 ml Balance -190 ml 560 ml Free Water 200 ml Tube Feeding 660 ml 360 ml Output Urine Total 850 ml # Bowel Movements 1 Laboratory Tests 12/09/17 05:10: White Blood Count 7.8, Red Blood Count 2.91L, Hemoglobin 9.2L, Hematocrit 26.9L , Mean Corpuscular Volume 93, Mean Corpuscular Hemoglobin 31.5H, Mean Corpuscular Hemoglobin Concent 34.1, Red Cell Distribution Width 16.7H, Platelet Count 426, Mean Platelet Volume 7.0, Neutrophils (%) (Auto) 52.0, Lymphocytes (%) (Auto) 26.7, Monocytes (%) (Auto) 7.0, Eosinophils (%) (Auto) 13.5H, Basophils (%) (Auto) 0.9, Sodium Level 141, Potassium Level 5.4H, Chloride Level 109H, Carbon Dioxide Level 24, Anion Gap 9, Blood Urea Nitrogen 40H, Creatinine 1.8H, Estimat Glomerular Filtration Rate 29.3, Glucose Level 92 , Uric Acid 6.2, Calcium Level 9.7, Phosphorus Level 7.2H, Magnesium Level 2.4, Total Bilirubin 0.1L, Aspartate Amino Transf (AST/SGOT) 196H, Alanine Aminotransferase (ALT/SGPT) 126H, Alkaline Phosphatase 217H, Pro-B-Type Natriuretic Peptide 1500H, Total Protein 8.9H, Albumin 2.7L, Globulin 6.2, Albumin/Globulin Ratio 0.4L Height (Feet): 5 Height (Inches): 5.00 Weight (Pounds): 140 General Appearance: no apparent distress Objective no change Parrish Luo MD Dec 09, 2017 13:08
[2017-12-09] MEDS ORDERED: Sodium Polystyrene Sulfonate 15gm Powder GT SCH (13:15)
--- NOTE | 2017-12-09 14:29 | GI Initial Consult Note ---
History of Present Illness General Date patient seen: Dec 09, 2017 Time patient seen: 15:12 Reason for Hospitalization: Fever Referring physician: YEISON Reason for Consultation: ABNORMAL LFTs Present Illness HPI Patient is a 52 years old female who is bedbound , shelter resident, with past medical history of traumatic brain injury, CVA with left hemiparesis, history of tracheostomy , status post takedown, suprapubic catheter, staghorn renal calculi ,seizure disorder, and multiple hospitalizations for sepsis and recurrent urinary tract infection. she was recently admitted and just discharged 2 days ago. Unable to get any other history from the patient because of her condition and normal verbal state. Admitted with UTI. GI consulted for abnormal LFTs. Patient recent admission here at [facility] s/p PEG placement now presents with LFT elevation and thus GI asked to see. An abdominal US taken on 11/28/17 showed liver normal echogenicity of the liver, no focal abnormality. Portal vein and hepatic veins are patent. Labs reviewed; anemia, transaminitis with elevated alkaline phosphatase. Patient is Gtube dependent. Home Meds Reported Medications Sennosides (SENNA) 8.6 Mg Tablet, 8.6 MG PO QHS PRN for Constipation, TAB 11/09/17 Ondansetron* (ZOFRAN*) 4 Mg Tablet, 4 MG ORAL Q6H PRN for Nausea & Vomiting, TAB 11/09/17 Acetaminophen* (ACETAMINOPHEN 325MG TABLET*) 325 Mg Tablet, 650 MG ORAL Q4H PRN for Fever/Headache/Mild Pain, TAB 11/09/17 Pantoprazole* (PROTONIX*) 40 Mg Tablet.dr, 40 MG ORAL DAILY for GERD, TAB 11/09/17 Multivitamin With Minerals (MULTIVITAMINS WITH MINERALS*) 1 Each Tablet, 1 TAB ORAL DAILY for supplement, TAB 11/09/17 Midodrine* (PROAMATINE*) 5 Mg Tablet, 15 MG ORAL BID for raise BP, TAB 11/09/17 Levetiracetam* (LEVETIRACETAM*) 500 Mg Tablet, 500 MG ORAL TWICE A DAY for seizure, TAB 11/09/17 [hydrocortisone 1% cr] No Conflict Check, 1 % TOPIC DAILY for skin rash 11/09/17 Saccharomyces Boulardii (FLORASTOR*) 250 Mg Capsule, 250 MG ORAL TID for probiotic supplement, CAP 11/09/17 Docusate Sodium* (DOCUSATE SODIUM*) 100 Mg Capsule, 200 MG ORAL Q8HR PRN for Constipation, CAP 11/09/17 Cranberry Extract (CRANBERRY) 425 Mg Capsule, 425 MG PO BID for UTI prophylaxis , CAP 11/09/17 Med list reviewed/reconciled: Yes Allergies: Coded Allergies: CEFEPIME (Unverified Allergy, Unknown, 11/09/17) Patient History PMH Narrative Past Medical History: See above Past Surgical History: MATE CHIEF shunt Pertinent Family History: none Social History: Denies: smoking Last Menstrual Period: unk Now: No Immunizations: other Reviewed Nursing Documentation: PMH: Agreed; PSxH: Agreed Nursing Documentation-PMH Hx Cardiac Problems: Yes - CHF Hx Hypertension: Yes Hx Cancer: No Hx Gastrointestinal Problems: Yes Hx Neurological Problems: Yes - obstructive HYDROCEPHALUS Hx Seizures: Yes Hx Traumatic Brain Injury: Yes Hx Speech Problem: Yes Hx Aphasia: Yes Hx Dysphasia: Yes Hx Neurologic Surgery: Yes - craniotomy Physical Exam Vital Signs Date Time Temp Pulse Resp B/P (MAP) Pulse Ox O2 Delivery O2 Flow Rate FiO2 12/05/17 08:00 97.3 100 18 118/66 (83) 95 97.3 12/05/17 09:00 Room Air Labs Laboratory Tests Test 12/09/17 05:10 White Blood Count 7.8 K/UL (4.8-10.8) Red Blood Count 2.91 M/UL (4.20-5.40) L Hemoglobin 9.2 G/DL (12.0-16.0) L Hematocrit 26.9 % (37.0-47.0) L Mean Corpuscular Volume 93 FL (80-99) Mean Corpuscular Hemoglobin 31.5 PG (27.0-31.0) H Mean Corpuscular Hemoglobin Concent 34.1 G/DL (32.0-36.0) Red Cell Distribution Width 16.7 % (11.6-14.8) H Platelet Count 426 K/UL (150-450) Mean Platelet Volume 7.0 FL (6.5-10.1) Neutrophils (%) (Auto) 52.0 % (45.0-75.0) Lymphocytes (%) (Auto) 26.7 % (20.0-45.0) Monocytes (%) (Auto) 7.0 % (1.0-10.0) Eosinophils (%) (Auto) 13.5 % (0.0-3.0) H Basophils (%) (Auto) 0.9 % (0.0-2.0) Sodium Level 141 MMOL/L (136-145) Potassium Level 5.4 MMOL/L (3.5-5.1) H Chloride Level 109 MMOL/L (98-107) H Carbon Dioxide Level 24 MMOL/L (21-32) Anion Gap 9 mmol/L (5-15) Blood Urea Nitrogen 40 mg/dL (7-18) H Creatinine 1.8 MG/DL (0.55-1.30) H Estimat Glomerular Filtration Rate 29.3 mL/min (>60) Glucose Level 92 MG/DL (74-106) Uric Acid 6.2 MG/DL (2.6-7.2) Calcium Level 9.7 MG/DL (8.5-10.1) Phosphorus Level 7.2 MG/DL (2.5-4.9) H Magnesium Level 2.4 MG/DL (1.8-2.4) Total Bilirubin 0.1 MG/DL (0.2-1.0) L Aspartate Amino Transf (AST/SGOT) 196 U/L (15-37) H Alanine Aminotransferase (ALT/SGPT) 126 U/L (12-78) H Alkaline Phosphatase 217 U/L (46-116) H Pro-B-Type Natriuretic Peptide 1500 pg/mL (0-125) H Total Protein 8.9 G/DL (6.4-8.2) H Albumin 2.7 G/DL (3.4-5.0) L Globulin 6.2 g/dL Albumin/Globulin Ratio 0.4 (1.0-2.7) L Current Medications Current Medications Medications (Trade) Dose Ordered Sig/Tay Route PRN Reason Start Time Stop Time Status Last Admin Dose Admin Acetaminophen (Tylenol) 650 mg Q4H PRN ORAL Fever/Headache/Mild Pain 12/09/17 03:15 01/04/18 03:14 Docusate Sodium (Colace) 200 mg Q8HR PRN ORAL Constipation 12/09/17 06:00 01/04/18 03:14 Ertapenem 0.5 gm/ Sodium Chloride 55 ml @ 110 mls/hr Q24H IVPB 12/09/17 22:15 12/12/17 22:14 Heparin Sodium (Porcine) (Heparin 5000 units/ml) 5,000 units EVERY 12 HOURS SUBQ 12/09/17 09:00 01/04/18 08:59 12/09/17 09:20 Lansoprazole (Prevacid) 30 mg DAILY GT 12/09/17 09:00 01/04/18 15:45 12/09/17 09:12 Levetiracetam (Keppra) 1,000 mg Q12HR ORAL 12/09/17 09:00 01/04/18 20:59 12/09/17 09:17 Midodrine (Pro-Amatine) 10 mg TID GT 12/09/17 09:00 01/04/18 08:59 12/09/17 09:14 Multivitamins Therapeutic (Therapeutic Multivitamin) 1 ea DAILY ORAL 12/09/17 09:00 01/04/18 08:59 12/09/17 09:17 Saccharomyces Boulardii (Florastor) 250 mg TID ORAL 12/09/17 09:00 01/04/18 08:59 12/09/17 13:08 Sennosides (Senokot) 1 tab QHS PRN GT Constipation 12/09/17 21:00 01/04/18 06:25 Sodium Polystyrene Sulfonate (Kayexalate) 30 gm ONCE GT 12/09/17 13:15 12/09/17 23:59 Vancomycin HCl (Vanco rx to dose) 1 ea DAILY PRN MISC Per rx protocol 12/09/17 09:00 01/04/18 03:14 GI: Plan Problems: (1) Dehydration (2) Dehydration, severe (3) Electrolyte imbalance (4) Abnormal LFTs Plan hepatitis panel negative abdominal US reviewed >> liver with normal echogenicity, no biliary obstruction noted acute transaminitis medication list reviewed no clear indication of LFT elevation of etiology at this time will trend and repeat for tomorrow. start TFs electrolyte correction avoid hepatotoxic drugs ppi bowel regime fu labs Discussed with Dr. Chan. Thank you for this patient referral, we will follow. The patient was seen and examined at bedside and all new and available data was reviewed in the patients chart. I agree with the above findings, impression and plan. (Patient seen earlier today. Signature stamp does not reflect patient encounter time.). - MD [facility]e [facility] Dec 09, 2017 14:29
[2017-12-09 16:00] VITALS: BP 107/63
--- NOTE | 2017-12-09 16:07 | Diagnostic Imaging Report ---
Indication:Abdominal pain Technique: Grayscale and duplex Doppler imaging of the abdomen performed. Comparison: 11/20/2017, 12/05/2017 Findings: The liver is somewhat heterogeneous. There may be mild surface nodularity. CBD is 5 mm.. The gallbladder is absent. The demonstrated part of the pancreas, aorta and IVC show no abnormalities. Both kidneys appear unremarkable. The spleen is normal in size. There is no biliary ductal dilatation identified. Doppler evaluation of the main portal vein shows patency. There is no ascites. Minimal hydronephrosis demonstrated, significantly improved compared to the previous renal ultrasound from 12/05/2017. Bilateral nephroureteral stents are present. Impression: Mild bilateral hydronephrosis improved compared to the previous study from 12/05/2017. Status post cholecystectomy Query chronic liver disease.
--- NOTE | 2017-12-09 17:45 | Infectious Diseases Prog Note ---
Assessment/Plan Problems: (1) Catheter-associated urinary tract infection Assessment & Plan: relapsed with the same previous Providencia stuartii , suspect due to ureter stent malfunction , recommend ureter stent removal for source control , will continue ertapenem for two weeks. EOT 12/19/17 (2) Sepsis Assessment & Plan: grew coag negative staph from anaerobic bottles only suspect contaminant , already on vancomycin will repeat blood culture to confirm . (3) Hydronephrosis of right kidney Assessment & Plan: mild on repeated renal US, recommend stents removal due to malfunctioning and recurrent UTI , continue ertapenem for two weeks (4) WEN (acute kidney injury) Assessment & Plan: continue hydration , monitor renal function with renally dosed meds (5) Dehydration Assessment & Plan: continue IVF, monitor UOP and lytes Subjective Constitutional: Reports: no symptoms HEENT: Reports: no symptoms Respiratory: Reports: no symptoms Breasts: Reports: no symptoms Cardiovascular: Reports: no symptoms Gastrointestinal/Abdominal: Reports: no symptoms Genitourinary: Reports: no symptoms Neurologic: Reports: no symptoms Psychiatric: Reports: no symptoms Skin: Reports: no symptoms Endocrine: Reports: no symptoms Hematologic: Reports: no symptoms Musculoskeletal: Reports: no symptoms Allergies: Coded Allergies: CEFEPIME (Unverified Allergy, Unknown, 11/09/17) Subjective SHE WAS UP IN BED COMFORTABLE, NO FEVER OR CHILLS, NO COUGH OR SOB, NO DIARRHEA Objective Vital Signs Last 24 Hour Vital Signs Date Time Temp Pulse Resp B/P (MAP) Pulse Ox O2 Delivery O2 Flow Rate FiO2 12/09/17 16:00 98.4 75 18 107/63 (78) 99 98.4 12/09/17 12:00 94.5 75 17 108/66 (80) 97 94.5 12/09/17 09:00 Room Air 12/09/17 08:00 96.5 96.5 12/09/17 08:00 81 17 97/63 (74) 96 12/09/17 04:00 97.0 81 20 127/69 (88) 97 97.0 12/08/17 23:54 72 16 127/75 (92) 96 12/08/17 21:00 Room Air 12/08/17 20:00 97.2 70 16 141/80 (100) 98 97.2 Height (Feet): 5 Height (Inches): 5.00 Weight (Pounds): 140 General Appearance: WD/WN, no acute distress HEENT: atraumatic, anicteric, mucous membranes moist, PERRL, EOMI, pharynx normal, supple, no JVD Respiratory/Chest: chest wall non-tender, normal breath sounds, no respiratory distress, no accessory muscle use, decreased breath sounds Cardiovascular: normal peripheral pulses, normal rate, regular rhythm, no gallop/murmur, no JVD Abdomen: normal bowel sounds, soft, non tender, no organomegaly, non distended , no mass, no scars Extremities: no cyanosis, no clubbing Skin: no rash, no lesions, no ulcers Neurologic/Psychiatric: alert, responsive Lymphatic: no neck adenopathy, no groin adenopathy Musculoskeletal: normal muscle bulk, no effusion Laboratory Tests Test 12/09/17 05:10 White Blood Count 7.8 K/UL (4.8-10.8) Red Blood Count 2.91 M/UL (4.20-5.40) L Hemoglobin 9.2 G/DL (12.0-16.0) L Hematocrit 26.9 % (37.0-47.0) L Mean Corpuscular Volume 93 FL (80-99) Mean Corpuscular Hemoglobin 31.5 PG (27.0-31.0) H Mean Corpuscular Hemoglobin Concent 34.1 G/DL (32.0-36.0) Red Cell Distribution Width 16.7 % (11.6-14.8) H Platelet Count 426 K/UL (150-450) Mean Platelet Volume 7.0 FL (6.5-10.1) Neutrophils (%) (Auto) 52.0 % (45.0-75.0) Lymphocytes (%) (Auto) 26.7 % (20.0-45.0) Monocytes (%) (Auto) 7.0 % (1.0-10.0) Eosinophils (%) (Auto) 13.5 % (0.0-3.0) H Basophils (%) (Auto) 0.9 % (0.0-2.0) Sodium Level 141 MMOL/L (136-145) Potassium Level 5.4 MMOL/L (3.5-5.1) H Chloride Level 109 MMOL/L (98-107) H Carbon Dioxide Level 24 MMOL/L (21-32) Anion Gap 9 mmol/L (5-15) Blood Urea Nitrogen 40 mg/dL (7-18) H Creatinine 1.8 MG/DL (0.55-1.30) H Estimat Glomerular Filtration Rate 29.3 mL/min (>60) Glucose Level 92 MG/DL (74-106) Uric Acid 6.2 MG/DL (2.6-7.2) Calcium Level 9.7 MG/DL (8.5-10.1) Phosphorus Level 7.2 MG/DL (2.5-4.9) H Magnesium Level 2.4 MG/DL (1.8-2.4) Total Bilirubin 0.1 MG/DL (0.2-1.0) L Aspartate Amino Transf (AST/SGOT) 196 U/L (15-37) H Alanine Aminotransferase (ALT/SGPT) 126 U/L (12-78) H Alkaline Phosphatase 217 U/L (46-116) H Pro-B-Type Natriuretic Peptide 1500 pg/mL (0-125) H Total Protein 8.9 G/DL (6.4-8.2) H Albumin 2.7 G/DL (3.4-5.0) L Globulin 6.2 g/dL Albumin/Globulin Ratio 0.4 (1.0-2.7) L Current Medications Medications (Trade) Dose Ordered Sig/Tay Route PRN Reason Start Time Stop Time Status Last Admin Dose Admin Acetaminophen (Tylenol) 650 mg Q4H PRN ORAL Fever/Headache/Mild Pain 12/09/17 03:15 01/04/18 03:14 Docusate Sodium (Colace) 200 mg Q8HR PRN ORAL Constipation 12/09/17 06:00 01/04/18 03:14 Ertapenem 0.5 gm/ Sodium Chloride 55 ml @ 110 mls/hr Q24H IVPB 12/09/17 22:15 12/21/17 22:14 Heparin Sodium (Porcine) (Heparin 5000 units/ml) 5,000 units EVERY 12 HOURS SUBQ 12/09/17 09:00 01/04/18 08:59 12/09/17 09:20 Lansoprazole (Prevacid) 30 mg DAILY GT 12/09/17 09:00 01/04/18 15:45 12/09/17 09:12 Levetiracetam (Keppra) 1,000 mg Q12HR ORAL 12/09/17 09:00 01/04/18 20:59 12/09/17 09:17 Midodrine (Pro-Amatine) 10 mg TID GT 12/09/17 09:00 01/04/18 08:59 12/09/17 09:14 Multivitamins Therapeutic (Therapeutic Multivitamin) 1 ea DAILY ORAL 12/09/17 09:00 01/04/18 08:59 12/09/17 09:17 Saccharomyces Boulardii (Florastor) 250 mg TID ORAL 12/09/17 09:00 01/04/18 08:59 12/09/17 13:08 Sennosides (Senokot) 1 tab QHS PRN GT Constipation 12/09/17 21:00 01/04/18 06:25 Sodium Polystyrene Sulfonate (Kayexalate) 30 gm ONCE GT 12/09/17 13:15 12/09/17 23:59 12/09/17 13:15 Vancomycin HCl (Vanco rx to dose) 1 ea DAILY PRN MISC Per rx protocol 12/09/17 09:00 01/04/18 03:14 Kortney Quiñones M.D. Dec 09, 2017 17:45
[2017-12-09 20:00] VITALS: BP 140/84
[2017-12-09] MEDS ORDERED: Sennosides 8.6mg GT PRN (21:00)
[2017-12-09] MEDS ORDERED: Ertapenem 0.5 GM in NS 55 ML IVPB SCH (22:15)
[2017-12-10] VITALS: BP 129/81
[2017-12-10 04:00] VITALS: BP 138/88
--- NOTE | 2017-12-10 07:00 | General Progress Note ---
Assessment/Plan Assessment/Plan #. Anemia of chronic disease - workup has been reviewed from before and noted to have high ferritin 1500, other labs consistent with ACD --> Cont to monitor for stability --> started on folic acid daily and will continue --> ok to continue heparin 5k sq tid as ppx #. Hyperproteinemia -- elevated protein on admission, in past modestly high --> no m-spike on the spep and upep PENDING results #. 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 She also has a history of a seizure disorder that is undefined. --> appreciate neuro recs from prior admission # Respiratory failure and now s/p takedown --> appreciate pulm recs # Urinary tract infection, and multiple episodes of sepsis. --> s/p abx treatment and seen by ID --> may need removal of stent # Hydronephrosis r kidney --> may need stent exchange per uro, appreciate their recs # Dysphagia s/p peg tube --> getting gtube feeds # Trace right sided pleural effusion # Bioethics/hospice services consulted --> recommended hospice last admission # D/C planning Appreciate consultation greatly! Subjective ROS Limited/Unobtainable: Yes Allergies: Coded Allergies: CEFEPIME (Unverified Allergy, Unknown, 11/09/17) Subjective Pt awake and alert. No acute events. H/H stable. gtube site c/d/i, pending d/c planning Objective Last 24 Hour Vital Signs Date Time Temp Pulse Resp B/P (MAP) Pulse Ox O2 Delivery O2 Flow Rate FiO2 12/10/17 04:00 97.0 89 19 138/88 (105) 97 97.0 12/10/17 00:00 97.1 91 20 129/81 (97) 97 97.1 12/09/17 21:00 Room Air 12/09/17 20:00 97.0 76 18 140/84 (102) 97 97.0 12/09/17 16:00 98.4 75 18 107/63 (78) 99 98.4 12/09/17 12:00 94.5 75 17 108/66 (80) 97 94.5 12/09/17 09:00 Room Air 12/09/17 08:00 96.5 96.5 12/09/17 08:00 81 17 97/63 (74) 96 Intake and Output 12/09/17 12/10/17 19:00 07:00 Intake Total 190 ml 440 ml Output Total 600 ml Balance 190 ml -160 ml Free Water 50 ml 100 ml IV Total 55 ml Tube Feeding 140 ml 285 ml Output Urine Total 600 ml # Bowel Movements 1 Height (Feet): 5 Height (Inches): 5.00 Weight (Pounds): 143 General Appearance: alert EENT: normal ENT inspection Neck: normal alignment Cardiovascular: regular rhythm Respiratory/Chest: normal breath sounds Abdomen: non tender Extremities: normal inspection Edema: 1+ Leg (L), 1+ Leg (R) Edema: mild edema Neurologic: alert Skin: warm/dry Objective gtube site is c/d/i Dawit Mcclendon MD Dec 10, 2017 07:00
[2017-12-10 07:51] LABS: EOSINOPHILS % (AUTO) 9.3 % (0.0-3.0); HEMATOCRIT 26.7 % (37.0-47.0); HEMOGLOBIN 8.9 G/DL (12.0-16.0); LYMPHOCYTES % (AUTO) 23.2 % (20.0-45.0); MEAN CORPUSCULAR VOLUME 94 FL (80-99); MONOCYTES % (AUTO) 6.1 % (1.0-10.0); NEUTROPHILS % (AUTO) 60.4 % (45.0-75.0); PLATELET COUNT 444 K/UL (150-450); RED BLOOD COUNT 2.85 M/UL (4.20-5.40); RED CELL DISTRIBUTION WIDTH 16.6 % (11.6-14.8); WHITE BLOOD COUNT 7.8 K/UL (4.8-10.8)
[2017-12-10 08:00] VITALS: BP 122/82
[2017-12-10 08:09] LABS: ALANINE AMINOTRANSFERASE 163 U/L (12-78); ALBUMIN 2.7 G/DL (3.4-5.0); ALBUMIN/GLOBULIN RATIO 0.4 (1.0-2.7); ALKALINE PHOSPHATASE 209 U/L (46-116); ANION GAP 12 mmol/L (5-15); ASPARTATE AMINO TRANSFERASE 207 U/L (15-37); BILIRUBIN,TOTAL 0.1 MG/DL (0.2-1.0); BLOOD UREA NITROGEN 41 mg/dL (7-18); CALCIUM 9.8 MG/DL (8.5-10.1); CARBON DIOXIDE 22 MMOL/L (21-32); CHLORIDE 111 MMOL/L (98-107); CREATININE 1.7 MG/DL (0.55-1.30); SODIUM 145 MMOL/L (136-145)
[2017-12-10] MEDS: Midodrine 10mg tab GT SCH ×5 (09:00→18:00)
--- NOTE | 2017-12-10 10:18 | Urology Progress Note ---
Assessment/Plan Assessment/Plan 1. Hydronephrosis, which is chronic. 2. Renal insufficiency, acute on chronic. 3. Hematuria. 4. Pyuria with UTI and colonization. 5. Proteinuria. 6. Urinary retention, chronic suprapubic tube. 7. Probable neurogenic bladder. 8. Renal cyst. keep SP tube, last exchanged 11/18 secured to pt's leg hand irrigated and do PRN abx as ordered monitor renal fxn get old recs if poss Subjective Allergies: Coded Allergies: CEFEPIME (Unverified Allergy, Unknown, 11/09/17) Subjective all noted Objective Last 24 Hour Vital Signs Date Time Temp Pulse Resp B/P (MAP) Pulse Ox O2 Delivery O2 Flow Rate FiO2 12/10/17 04:00 97.0 89 19 138/88 (105) 97 97.0 12/10/17 00:00 97.1 91 20 129/81 (97) 97 97.1 12/09/17 21:00 Room Air 12/09/17 20:00 97.0 76 18 140/84 (102) 97 97.0 12/09/17 16:00 98.4 75 18 107/63 (78) 99 98.4 12/09/17 12:00 94.5 75 17 108/66 (80) 97 94.5 Intake and Output 12/09/17 12/10/17 19:00 07:00 Intake Total 190 ml 440 ml Output Total 600 ml Balance 190 ml -160 ml Free Water 50 ml 100 ml IV Total 55 ml Tube Feeding 140 ml 285 ml Output Urine Total 600 ml # Bowel Movements 1 Microbiology Date/Time Source Procedure Growth Status 12/08/17 19:00 Blood Blood Culture - Preliminary NO GROWTH AFTER 24 HOURS Resulted 12/05/17 01:30 Nasal Nares MRSA Culture - Final NO METHICILLIN RESISTANT STAPH AUREUS... Complete 12/04/17 22:40 Urine,Clean Catch Urine Culture - Final Providencia Stuartii Complete 12/05/17 01:30 Rectum - Final Complete Current Medications Medications (Trade) Dose Ordered Sig/Tay Route PRN Reason Start Time Stop Time Status Last Admin Dose Admin Acetaminophen (Tylenol) 650 mg Q4H PRN ORAL Fever/Headache/Mild Pain 12/09/17 03:15 01/04/18 03:14 Docusate Sodium (Colace) 200 mg Q8HR PRN ORAL Constipation 12/09/17 06:00 01/04/18 03:14 Ertapenem 0.5 gm/ Sodium Chloride 55 ml @ 110 mls/hr Q24H IVPB 12/09/17 22:15 12/21/17 22:14 12/09/17 22:32 Heparin Sodium (Porcine) (Heparin 5000 units/ml) 5,000 units EVERY 12 HOURS SUBQ 12/09/17 09:00 01/04/18 08:59 12/09/17 20:13 Lansoprazole (Prevacid) 30 mg DAILY GT 12/09/17 09:00 01/04/18 15:45 12/09/17 09:12 Levetiracetam (Keppra) 1,000 mg Q12HR ORAL 12/09/17 09:00 01/04/18 20:59 12/09/17 20:09 Midodrine (Pro-Amatine) 10 mg TID GT 12/09/17 09:00 01/04/18 08:59 12/09/17 09:14 Multivitamins Therapeutic (Therapeutic Multivitamin) 1 ea DAILY ORAL 12/09/17 09:00 01/04/18 08:59 12/09/17 09:17 Saccharomyces Boulardii (Florastor) 250 mg TID ORAL 12/09/17 09:00 01/04/18 08:59 12/09/17 18:31 Sennosides (Senokot) 1 tab QHS PRN GT Constipation 12/09/17 21:00 01/04/18 06:25 Vancomycin HCl (Vanco rx to dose) 1 ea DAILY PRN MISC Per rx protocol 12/09/17 09:00 01/04/18 03:14 Laboratory Tests 12/10/17 07:10: White Blood Count 7.8, Red Blood Count 2.85L, Hemoglobin 8.9L, Hematocrit 26.7L , Mean Corpuscular Volume 94, Mean Corpuscular Hemoglobin 31.1H, Mean Corpuscular Hemoglobin Concent 33.2, Red Cell Distribution Width 16.6H, Platelet Count 444, Mean Platelet Volume 6.7, Neutrophils (%) (Auto) 60.4, Lymphocytes (%) (Auto) 23.2, Monocytes (%) (Auto) 6.1, Eosinophils (%) (Auto) 9.3H, Basophils (%) (Auto) 1.0, Sodium Level 145, Potassium Level 4.0, Chloride Level 111H, Carbon Dioxide Level 22, Anion Gap 12, Blood Urea Nitrogen 41H, Creatinine 1.7H, Estimat Glomerular Filtration Rate 31.3, Glucose Level 115H, Calcium Level 9.8, Total Bilirubin 0.1L, Aspartate Amino Transf (AST/SGOT) 207H , Alanine Aminotransferase (ALT/SGPT) 163H, Alkaline Phosphatase 209H, Total Protein 8.9H, Albumin 2.7L, Globulin 6.2, Albumin/Globulin Ratio 0.4L, Random Vancomycin Level 18.0 Height (Feet): 5 Height (Inches): 5.00 Weight (Pounds): 143 Objective urine is grossly yellow with debris WILBER GALINDO Dec 10, 2017 10:18
[2017-12-10] MEDS: Multivitamin w/Minerals tab ORAL SCH (10:28)
[2017-12-10] MEDS: levETIRAcetam 500mg/5ml Liquid ORAL SCH (10:28)
[2017-12-10] MEDS: Heparin 5000 units/ml inj SUBQ SCH (10:36)
--- NOTE | 2017-12-10 11:24 | GI Progress Note ---
Assessment/Plan Problems: (1) Abnormal LFTs ICD Codes: R94.5 - Abnormal results of liver function studies SNOMED: 602819317 (2) Dehydration, severe ICD Codes: E86.0 - Dehydration SNOMED: 752678502 (3) Electrolyte imbalance ICD Codes: E87.8 - Other disorders of electrolyte and fluid balance, not elsewhere classified SNOMED: 740671231 (4) Dehydration with hypernatremia ICD Codes: E87.0 - Hyperosmolality and hypernatremia SNOMED: 786746555 (5) Altered mental state ICD Codes: R41.82 - Altered mental status, unspecified SNOMED: 029654042 Status: unchanged Status Narrative Discussed with Dr. Chan. Assessment/Plan hepatitis panel negative abdominal US reviewed >> Mild bilateral hydronephrosis improved compared to the previous study from 12/05/2017. Status post cholecystectomy. Query chronic liver disease. acute transaminitis medication list reviewed >> Ertapenem, possible cause of LFT elevation asymptomatic elevations in serum aminotransferase levels occur in about 5% of patients. order additional abdominal US with doppler to r/o any hepatic ischemia. GTFs to goal electrolyte correction avoid hepatotoxic drugs ppi reglan prn bowel regime fu labs The patient was seen and examined at bedside and all new and available data was reviewed in the patients chart. I agree with the above findings, impression and plan. (Patient seen earlier today. Signature stamp does not reflect patient encounter time.). - Laith Chan MD Subjective Gastrointestinal/Abdominal: Reports: no symptoms Subjective denies any pain Objective Last 24 Hour Vital Signs Date Time Temp Pulse Resp B/P (MAP) Pulse Ox O2 Delivery O2 Flow Rate FiO2 12/10/17 09:00 Room Air 12/10/17 08:00 97.2 93 19 122/82 (95) 95 97.2 12/10/17 04:00 97.0 89 19 138/88 (105) 97 97.0 12/10/17 00:00 97.1 91 20 129/81 (97) 97 97.1 12/09/17 21:00 Room Air 12/09/17 20:00 97.0 76 18 140/84 (102) 97 97.0 12/09/17 16:00 98.4 75 18 107/63 (78) 99 98.4 12/09/17 12:00 94.5 75 17 108/66 (80) 97 94.5 Intake and Output 12/09/17 12/10/17 19:00 07:00 Intake Total 190 ml 475 ml Output Total 600 ml Balance 190 ml -125 ml Free Water 50 ml 100 ml IV Total 55 ml Tube Feeding 140 ml 320 ml Output Urine Total 600 ml # Bowel Movements 1 Laboratory Tests Test 12/10/17 07:10 White Blood Count 7.8 K/UL (4.8-10.8) Red Blood Count 2.85 M/UL (4.20-5.40) L Hemoglobin 8.9 G/DL (12.0-16.0) L Hematocrit 26.7 % (37.0-47.0) L Mean Corpuscular Volume 94 FL (80-99) Mean Corpuscular Hemoglobin 31.1 PG (27.0-31.0) H Mean Corpuscular Hemoglobin Concent 33.2 G/DL (32.0-36.0) Red Cell Distribution Width 16.6 % (11.6-14.8) H Platelet Count 444 K/UL (150-450) Mean Platelet Volume 6.7 FL (6.5-10.1) Neutrophils (%) (Auto) 60.4 % (45.0-75.0) Lymphocytes (%) (Auto) 23.2 % (20.0-45.0) Monocytes (%) (Auto) 6.1 % (1.0-10.0) Eosinophils (%) (Auto) 9.3 % (0.0-3.0) H Basophils (%) (Auto) 1.0 % (0.0-2.0) Sodium Level 145 MMOL/L (136-145) Potassium Level 4.0 MMOL/L (3.5-5.1) Chloride Level 111 MMOL/L (98-107) H Carbon Dioxide Level 22 MMOL/L (21-32) Anion Gap 12 mmol/L (5-15) Blood Urea Nitrogen 41 mg/dL (7-18) H Creatinine 1.7 MG/DL (0.55-1.30) H Estimat Glomerular Filtration Rate 31.3 mL/min (>60) Glucose Level 115 MG/DL (74-106) H Calcium Level 9.8 MG/DL (8.5-10.1) Total Bilirubin 0.1 MG/DL (0.2-1.0) L Aspartate Amino Transf (AST/SGOT) 207 U/L (15-37) H Alanine Aminotransferase (ALT/SGPT) 163 U/L (12-78) H Alkaline Phosphatase 209 U/L (46-116) H Total Protein 8.9 G/DL (6.4-8.2) H Albumin 2.7 G/DL (3.4-5.0) L Globulin 6.2 g/dL Albumin/Globulin Ratio 0.4 (1.0-2.7) L Random Vancomycin Level 18.0 ug/mL Height (Feet): 5 Height (Inches): 5.00 Weight (Pounds): 143 General Appearance: WD/WN, no apparent distress, alert Cardiovascular: normal rate Respiratory/Chest: normal breath sounds, no respiratory distress Abdominal Exam: normal bowel sounds, non tender, soft Extremities: normal range of motion, non-tender Olivia Lubin NP Dec 10, 2017 11:24
[2017-12-10 12:00] VITALS: BP 121/77
[2017-12-10] MEDS ORDERED: Vancomycin 1gm/D5W 275ml IVPB SCH ×2 (15:00)
--- NOTE | 2017-12-10 15:09 | Nephrology Progress Note ---
Assessment/Plan Problem List: (1) WEN (acute kidney injury) Assessment: Cr down to1.8 (2) Dehydration with hypernatremia (3) Sepsis (4) Hypotension Assessment K wnl Sepsis UTI (urinary tract infection) WEN (acute kidney injury) Dehydration hypernatremia Hypotension has PEG and suprapubic Plan DC IV avoid nephrotoxics monitor renal parameters continue Sz meds ? DC planning Med Surg Subjective ROS Limited/Unobtainable: No Constitutional: Reports: malaise Objective Objective Last 24 Hour Vital Signs Date Time Temp Pulse Resp B/P (MAP) Pulse Ox O2 Delivery O2 Flow Rate FiO2 12/10/17 12:00 96.1 96 21 121/77 (92) 95 96.1 12/10/17 09:00 Room Air 12/10/17 08:00 97.2 93 19 122/82 (95) 95 97.2 12/10/17 04:00 97.0 89 19 138/88 (105) 97 97.0 12/10/17 00:00 97.1 91 20 129/81 (97) 97 97.1 12/09/17 21:00 Room Air 12/09/17 20:00 97.0 76 18 140/84 (102) 97 97.0 12/09/17 16:00 98.4 75 18 107/63 (78) 99 98.4 Intake and Output 12/09/17 12/10/17 19:00 07:00 Intake Total 190 ml 475 ml Output Total 600 ml Balance 190 ml -125 ml Free Water 50 ml 100 ml IV Total 55 ml Tube Feeding 140 ml 320 ml Output Urine Total 600 ml # Bowel Movements 1 Laboratory Tests 12/10/17 07:10: White Blood Count 7.8, Red Blood Count 2.85L, Hemoglobin 8.9L, Hematocrit 26.7L , Mean Corpuscular Volume 94, Mean Corpuscular Hemoglobin 31.1H, Mean Corpuscular Hemoglobin Concent 33.2, Red Cell Distribution Width 16.6H, Platelet Count 444, Mean Platelet Volume 6.7, Neutrophils (%) (Auto) 60.4, Lymphocytes (%) (Auto) 23.2, Monocytes (%) (Auto) 6.1, Eosinophils (%) (Auto) 9.3H, Basophils (%) (Auto) 1.0, Sodium Level 145, Potassium Level 4.0, Chloride Level 111H, Carbon Dioxide Level 22, Anion Gap 12, Blood Urea Nitrogen 41H, Creatinine 1.7H, Estimat Glomerular Filtration Rate 31.3, Glucose Level 115H, Calcium Level 9.8, Total Bilirubin 0.1L, Aspartate Amino Transf (AST/SGOT) 207H , Alanine Aminotransferase (ALT/SGPT) 163H, Alkaline Phosphatase 209H, Total Protein 8.9H, Albumin 2.7L, Globulin 6.2, Albumin/Globulin Ratio 0.4L, Random Vancomycin Level 18.0 Height (Feet): 5 Height (Inches): 5.00 Weight (Pounds): 143 General Appearance: no apparent distress Cardiovascular: normal rate Respiratory/Chest: decreased breath sounds Abdomen: soft Objective no change Parrish Luo MD Dec 10, 2017 15:09
[2017-12-10 16:00] VITALS: BP 122/84
[2017-12-10] MEDS ORDERED: LANSOPRAZOLE30 MG ORAL (16:14)
[2017-12-10] MEDS ORDERED: LEVETIRACETAM500 MG ORAL (16:15)
[2017-12-10] MEDS ORDERED: MIDODRINE HCL10 MG GT (16:15)
[2017-12-10] MEDS ORDERED: MULTIVITAMINS1 EAC8 ORAL (16:16)
[2017-12-10] MEDS ORDERED: Influenza Vaccine Quadrivalent 0.5ml IM ONE (17:00)
--- NOTE | 2017-12-10 17:10 | Infectious Diseases Prog Note ---
Assessment/Plan Problems: (1) Catheter-associated urinary tract infection Assessment & Plan: relapsed with the same previous Providencia stuartii , suspect due to ureter stent malfunction , recommend ureter stent removal for source control , will continue ertapenem for two weeks. EOT 12/19/17 (2) Sepsis Assessment & Plan: grew coag negative staph from anaerobic bottles only suspect contaminant , already on vancomycin , repeated blood culture is negative so far, will stop vancomycin (3) Hydronephrosis of right kidney Assessment & Plan: mild on repeated renal US, recommend stents removal due to malfunctioning and recurrent UTI , continue ertapenem for two weeks (4) WEN (acute kidney injury) Assessment & Plan: continue hydration , monitor renal function with renally dosed meds (5) Dehydration Assessment & Plan: continue IVF, monitor UOP and lytes Subjective Constitutional: Reports: no symptoms HEENT: Reports: no symptoms Respiratory: Reports: no symptoms Breasts: Reports: no symptoms Cardiovascular: Reports: no symptoms Gastrointestinal/Abdominal: Reports: no symptoms Genitourinary: Reports: no symptoms Neurologic: Reports: no symptoms Psychiatric: Reports: no symptoms Skin: Reports: no symptoms Endocrine: Reports: no symptoms Hematologic: Reports: no symptoms Musculoskeletal: Reports: no symptoms Allergies: Coded Allergies: CEFEPIME (Unverified Allergy, Unknown, 11/09/17) Subjective SHE WAS UP IN BED COMFORTABLE, NO FEVER OR CHILLS, NO COUGH OR SOB, NO DIARRHEA Objective Vital Signs Last 24 Hour Vital Signs Date Time Temp Pulse Resp B/P (MAP) Pulse Ox O2 Delivery O2 Flow Rate FiO2 12/10/17 12:00 96.1 96 21 121/77 (92) 95 96.1 12/10/17 09:00 Room Air 12/10/17 08:00 97.2 93 19 122/82 (95) 95 97.2 12/10/17 04:00 97.0 89 19 138/88 (105) 97 97.0 12/10/17 00:00 97.1 91 20 129/81 (97) 97 97.1 12/09/17 21:00 Room Air 12/09/17 20:00 97.0 76 18 140/84 (102) 97 97.0 Height (Feet): 5 Height (Inches): 5.00 Weight (Pounds): 143 General Appearance: WD/WN, no acute distress HEENT: normocephalic, atraumatic, anicteric, mucous membranes moist, PERRL, EOMI, pharynx normal, supple, no JVD Respiratory/Chest: chest wall non-tender, no respiratory distress, no accessory muscle use, decreased breath sounds, crackles/rales Cardiovascular: normal peripheral pulses, normal rate, regular rhythm, no gallop/murmur, no JVD Abdomen: normal bowel sounds, soft, non tender, no organomegaly, non distended , no mass, no scars Extremities: no cyanosis, no clubbing Skin: no rash, no lesions Neurologic/Psychiatric: alert, oriented x 3 Lymphatic: no neck adenopathy, no groin adenopathy Musculoskeletal: normal muscle bulk Microbiology Date/Time Source Procedure Growth Status 12/08/17 19:00 Blood Blood Culture - Preliminary NO GROWTH AFTER 24 HOURS Resulted 12/08/17 18:55 Blood Blood Culture - Preliminary NO GROWTH AFTER 24 HOURS Resulted Laboratory Tests Test 12/10/17 07:10 White Blood Count 7.8 K/UL (4.8-10.8) Red Blood Count 2.85 M/UL (4.20-5.40) L Hemoglobin 8.9 G/DL (12.0-16.0) L Hematocrit 26.7 % (37.0-47.0) L Mean Corpuscular Volume 94 FL (80-99) Mean Corpuscular Hemoglobin 31.1 PG (27.0-31.0) H Mean Corpuscular Hemoglobin Concent 33.2 G/DL (32.0-36.0) Red Cell Distribution Width 16.6 % (11.6-14.8) H Platelet Count 444 K/UL (150-450) Mean Platelet Volume 6.7 FL (6.5-10.1) Neutrophils (%) (Auto) 60.4 % (45.0-75.0) Lymphocytes (%) (Auto) 23.2 % (20.0-45.0) Monocytes (%) (Auto) 6.1 % (1.0-10.0) Eosinophils (%) (Auto) 9.3 % (0.0-3.0) H Basophils (%) (Auto) 1.0 % (0.0-2.0) Sodium Level 145 MMOL/L (136-145) Potassium Level 4.0 MMOL/L (3.5-5.1) Chloride Level 111 MMOL/L (98-107) H Carbon Dioxide Level 22 MMOL/L (21-32) Anion Gap 12 mmol/L (5-15) Blood Urea Nitrogen 41 mg/dL (7-18) H Creatinine 1.7 MG/DL (0.55-1.30) H Estimat Glomerular Filtration Rate 31.3 mL/min (>60) Glucose Level 115 MG/DL (74-106) H Calcium Level 9.8 MG/DL (8.5-10.1) Total Bilirubin 0.1 MG/DL (0.2-1.0) L Aspartate Amino Transf (AST/SGOT) 207 U/L (15-37) H Alanine Aminotransferase (ALT/SGPT) 163 U/L (12-78) H Alkaline Phosphatase 209 U/L (46-116) H Total Protein 8.9 G/DL (6.4-8.2) H Albumin 2.7 G/DL (3.4-5.0) L Globulin 6.2 g/dL Albumin/Globulin Ratio 0.4 (1.0-2.7) L Random Vancomycin Level 18.0 ug/mL Current Medications Medications (Trade) Dose Ordered Sig/Tay Route PRN Reason Start Time Stop Time Status Last Admin Dose Admin Acetaminophen (Tylenol) 650 mg Q4H PRN ORAL Fever/Headache/Mild Pain 12/09/17 03:15 01/04/18 03:14 Docusate Sodium (Colace) 200 mg Q8HR PRN ORAL Constipation 12/09/17 06:00 01/04/18 03:14 Ertapenem 0.5 gm/ Sodium Chloride 55 ml @ 110 mls/hr Q24H IVPB 12/09/17 22:15 12/21/17 22:14 12/09/17 22:32 Heparin Sodium (Porcine) (Heparin 5000 units/ml) 5,000 units EVERY 12 HOURS SUBQ 12/09/17 09:00 01/04/18 08:59 12/10/17 10:36 Lansoprazole (Prevacid) 30 mg DAILY GT 12/09/17 09:00 01/04/18 15:45 12/10/17 10:28 Levetiracetam (Keppra) 1,000 mg Q12HR ORAL 12/09/17 09:00 01/04/18 20:59 12/10/17 10:28 Midodrine (Pro-Amatine) 10 mg TID GT 12/09/17 09:00 01/04/18 08:59 12/09/17 09:14 Multivitamins Therapeutic (Therapeutic Multivitamin) 1 ea DAILY ORAL 12/09/17 09:00 01/04/18 08:59 12/10/17 10:28 Saccharomyces Boulardii (Florastor) 250 mg TID ORAL 12/09/17 09:00 01/04/18 08:59 12/10/17 14:12 Sennosides (Senokot) 1 tab QHS PRN GT Constipation 12/09/17 21:00 01/04/18 06:25 Vancomycin HCl (Vanco rx to dose) 1 ea DAILY PRN MISC Per rx protocol 12/09/17 09:00 01/04/18 03:14 Vancomycin HCl 1 gm/Dextrose 275 ml @ 183.708 mls/hr ONCE IVPB 12/10/17 15:00 12/10/17 18:00 Kortney Quiñones M.D. Dec 10, 2017 17:10
--- NOTE | 2017-12-11 12:29 | Discharge Summary ---
Discharge Summary Discharge Summary _ DATE OF ADMISSION: 12/04/2017 DATE OF DISCHARGE: 12/10/2017 CONSULTANTS: Dr. Kortney Mcclendon BRIEF HOSPITAL COURSE: Patient is a 52-year-old female, with medical history of hydrocephalus status post JEWEL STRIPPER shunt, bedbound, senior living resident, with traumatic brain injury, CVA with left hemiparesis, history of prior tracheostomy s/p takedown, staghorn renal calculi, seizure disorder, with suprapubic catheter and multiple hospitalizations for sepsis and recurrent UTI. She presented to ED with fever and UTI. Workup showed evidence of evidence of dehydration and ATN. Creatinine was elevated to 3.1, BUN 62. Sodium 147 chloride 111, potassium 5.3. LFTs were elevated. She was started on IV hydration. EKG was without acute changes. Chest x-ray showed bilateral minimal right-sided interstitial disease, diffuse, increased from recent study. She was admitted for sepsis, acute kidney injury and UTI. She was given IV hydration. She was started empirically on IV vancomycin and Zosyn. ID was consulted. She had a history of yeast infection. She was restarted on fluconazole. Ertapenem was started. Fluconazole discontinued. She was seen by urologist, suprapubic catheter was draining well. Last change was 11/18/2017. She had elevated liver function tests. Hepatitis panel was negative. Abdominal ultrasound showed bilateral hydronephrosis, improved compared to previous study. On review of medications, ertapenem can cause possible LFT elevation. Patient was tolerating tube feeding well. She was seen by excel analyst, workup from prior admission was noted to have elevated ferritin levels, anemia was consistent with anemia of chronic disease. She had hyperproteinemia with no M spike on SPEP and UPEP pending. Thrombocytopenia improved. Hepatitis and HIV screen were negative. Urine culture showed growth of Providencia. She was advised to continue antibiotics for 2 weeks. Blood culture with growth of coagulase-negative staph from unable aerobic bottle, suspect contaminant. Repeat blood culture did not isolate any growth. Kidney function improved. She was then cleared for discharge to SNF, to continue ertapenem, end of therapy on12/19/2017. FINAL DIAGNOSES: Sepsis due to catheter associated urinary tract infection UTI with Providencia with suprapubic catheter Hydronephrosis Acute kidney injury Dehydration with hypernatremia PEG tube status Abnormal LFTs Altered mental status/encephalopathy Probable neurogenic bladder Urinary retention with chronic suprapubic tube Anemia of chronic disease Hyperproteinemia Thrombocytopenia Severe brain trauma with right-sided craniectomy and significant right brain encephalomalacia Seizure disorder Respiratory failure status post takedown Trace right-sided pleural effusion DISPOSITION: Patient was discharged to [facility]. DISCHARGE MEDICATIONS: Refer to Discharge Medication List. I have been assigned to dictate discharge summary on this account, and I was not involved in the patient's management. Veronica Stiles NP Dec 11, 2017 12:29
== END 2017-12-10 20:00 | DRG 466 ==
LOC: EDUNIT# 21:50 → EDBD 21:50 → EMR 22:22 → 2E 23:51 → EDBEDREQ 12-05 00:47 → 2E 12-05 07:10 → 4E 12-08 23:07
DX: T83.518A Infection and inflammatory reaction due to other urinary catheter, initial encounter (principal); R65.20 Severe sepsis without septic shock; G91.1 Obstructive hydrocephalus; A41.9 Sepsis, unspecified organism; G93.40 Encephalopathy, unspecified; N17.9 Acute kidney failure, unspecified; I13.0 Hypertensive heart and chronic kidney disease with heart failure and stage 1 through stage 4 chronic kidney disease, or unspecified chronic kidney disease; E87.0 Hyperosmolality and hypernatremia; E88.09 Other disorders of plasma-protein metabolism, not elsewhere classified; D69.6 Thrombocytopenia, unspecified; N39.0 Urinary tract infection, site not specified; Y84.6 Urinary catheterization as the cause of abnormal reaction of the patient, or of later complication, without mention of misadventure at the time of the procedure; B96.89 Other specified bacterial agents as the cause of diseases classified elsewhere; N13.30 Unspecified hydronephrosis; E86.0 Dehydration; Z43.1 Encounter for attention to gastrostomy; R79.89 Other specified abnormal findings of blood chemistry; N31.9 Neuromuscular dysfunction of bladder, unspecified; R33.9 Retention of urine, unspecified; D63.8 Anemia in other chronic diseases classified elsewhere; Z87.820 Personal history of traumatic brain injury; G40.909 Epilepsy, unspecified, not intractable, without status epilepticus; Z98.2 Presence of cerebrospinal fluid drainage device; I69.354 Hemiplegia and hemiparesis following cerebral infarction affecting left non-dominant side; Z88.8 Allergy status to other drugs, medicaments and biological substances; R13.10 Dysphagia, unspecified; N18.9 Chronic kidney disease, unspecified; N28.1 Cyst of kidney, acquired; Z23 Encounter for immunization
CPT/HCPCS: 36415; 71045; 76700; 76770; 80048; 80053; 80061; 80202; 80299; 81003; 81050; 82550; 82553; 82570; 82607; 82728; 82746; 82977; 83036; 83540; 83550; 83605; 83735; 83880; 84100; 84165; 84484; 84550; 85025; 85610; 85730; 86140; 87040; 87081; 87086; 87181; 90686; 93005; 96361; 96365; 96367; 99285

== ENCOUNTER 2017-12-12 14:36 | Inpatient (IN) | payer MEDICAID ==
[~2017-12-12] VITALS: Ht 170.2 cm; Wt 66.2 kg
[2017-12-12 14:36] VITALS: BP 95/60
[~2017-12-12 14:36] MED LIST changes: +LANSOPRAZOLE30 MG ORAL; +MIDODRINE HCL10 MG GT
[2017-12-12 15:15] LABS: BASOPHILS % (AUTO) 1.2 % (0.0-2.0); HEMATOCRIT 29.9 % (37.0-47.0); HEMOGLOBIN 9.5 G/DL (12.0-16.0); LYMPHOCYTES % (AUTO) 21.9 % (20.0-45.0); MEAN CORPUSCULAR VOLUME 92 FL (80-99); MONOCYTES % (AUTO) 10.4 % (1.0-10.0); NEUTROPHILS % (AUTO) 57.6 % (45.0-75.0); PLATELET COUNT 562 K/UL (150-450); RED BLOOD COUNT 3.26 M/UL (4.20-5.40); RED CELL DISTRIBUTION WIDTH 15.9 % (11.6-14.8); WHITE BLOOD COUNT 7.5 K/UL (4.8-10.8)
[2017-12-12 15:20] LABS: APPEARANCE,URINE CLOUDY; BILIRUBIN, URINE NEGATIVE (NEGATIVE); COLOR,URINE PALE YELLOW; GLUCOSE, URINE (UA) NEGATIVE (NEGATIVE); KETONES,URINE NEGATIVE (NEGATIVE); LEUKOCYTE ESTERASE ,URINE 3+ (NEGATIVE); NITRITE,URINE NEGATIVE (NEGATIVE); PH,URINE 6 (4.5-8.0); PROTEIN,URINE 4+ (NEGATIVE); UROBILINOGEN,URINE NORMAL MG/DL (0.0-1.0)
--- NOTE | 2017-12-12 15:29 | Diagnostic Imaging Report ---
Indication: Dyspnea Comparison: 12/04/2017 A single view chest radiograph was obtained. Findings: There is mild basal atelectasis on the right. Heart size is normal. Bones are osteopenic. IMPRESSION: Right basal atelectasis
[2017-12-12 15:40] LABS: ANION GAP 10 mmol/L (5-15); BLOOD UREA NITROGEN 49 mg/dL (7-18); CARBON DIOXIDE 27 MMOL/L (21-32); CHLORIDE 108 MMOL/L (98-107); CREATININE 1.8 MG/DL (0.55-1.30); POTASSIUM 4.1 MMOL/L (3.5-5.1); SODIUM 145 MMOL/L (136-145)
[2017-12-12 15:44] LABS: ALANINE AMINOTRANSFERASE 91 U/L (12-78); ALBUMIN 2.7 G/DL (3.4-5.0); ALBUMIN/GLOBULIN RATIO 0.4 (1.0-2.7); ALKALINE PHOSPHATASE 185 U/L (46-116); ASPARTATE AMINO TRANSFERASE 66 U/L (15-37); BILIRUBIN,TOTAL 0.2 MG/DL (0.2-1.0); CKMB 5.9 NG/ML (0.0-3.6)
[2017-12-12] MEDS ORDERED: Clindamycin 600mg 50 ML IVPB ONE (15:45)
[2017-12-12 15:58] LABS: CREATINE KINASE 98 U/L (26-308)
[2017-12-12 16:00] VITALS: BP 106/63
--- NOTE | 2017-12-12 16:45 | Diagnostic Imaging Report ---
Indication: Altered mental status Technique: Contiguous 5 mm thick transaxial imaging of the head obtained in a Siemens Sensation [address] scanner. Soft tissue and bone windows generated. Automatic Exposure Control was utilized. Total Dose length Product (DLP): 112.[address] Dose Index Volume (CTDIvol): 70.38 mGy Comparison: 11/20/2017 Findings: There is no significant change compared to the recent CT exam. There is a posterior occipital right-sided ventriculostomy with the the tip traversing the midline and terminating in the area of the anterior horn of the left lateral ventricles. The ventricles are small but stable in appearance. Would consider the possibility of over shunting. Recommend referral and evaluation by neurosurgery. This finding is stable. There is a large craniectomy defect over the right aspect of the calvarium with the obvious focal atrophy of the right temporal and parietal lobe and apparent resection of part of the brain. There is also a large craniectomy over the left frontal region with a metallic mesh covering noted. There is no obvious acute findings such as edema or mass effect. There is no evidence of acute intracranial blood. The basal cisterns appear stable. IMPRESSION: No change compared to the previous examination from 11/20/2017. No mass effect or edema or acute intracranial hemorrhage identified. Ventriculostomy demonstrated unchanged in position. No hydrocephalus demonstrated. Small ventricles suggest the possibility of over shunting. Correlate clinically. Large craniectomy defect chronic in nature bilaterally as described above. Large area of encephalomalacia involving the right cerebrum The CT scanner at [facility] is accredited by the [employer] and the scans are performed using dose optimization techniques as appropriate to a performed exam including Automatic Exposure control.
--- NOTE | 2017-12-12 17:43 | Emergency Room Report ---
History of Present Illness General Chief Complaint: Altered Level of Consciousness Source: Patient, EMS Present Illness HPI Patient presents by paramedics report of altered mental status patient is from a nursing facility upon review of medical records appears the patient was recently in the hospital as well a she herself is awake was trying to move her right arm when taking a history Is unclear the time of change in mentation senior care reports the patient is usually more verbal There was no reports of vomiting or diarrhea patient apparently was diagnosed with UTI on recent presentation Unclear regarding vomiting or diarrhea Unclear regarding any trauma Allergies: Coded Allergies: CEFEPIME (Unverified Allergy, Unknown, 11/09/17) Patient History Limited by: medical condition Past Medical History: see triage record Pertinent Family History: unable to obtain Now: No Reviewed Nursing Documentation: PMH: Agreed; PSxH: Agreed Nursing Documentation-PMH Past Medical History: No History, Except For Hx Cardiac Problems: Yes - CHF Hx Hypertension: Yes Hx Cancer: No Hx Gastrointestinal Problems: Yes Hx Neurological Problems: Yes - obstructive HYDROCEPHALUS Hx Seizures: Yes Hx Traumatic Brain Injury: Yes Hx Speech Problem: Yes Hx Aphasia: Yes Hx Dysphasia: Yes Hx Neurologic Surgery: Yes - craniotomy Review of Systems All Other Systems: limited - Other than the ones mentioned in the history of present illness all others are reviewed however they do stay limited due to the patient's mental status Physical Exam Vital Signs Date Time Temp Pulse Resp B/P (MAP) Pulse Ox O2 Delivery O2 Flow Rate FiO2 12/12/17 14:35 99.1 98 21 136/87 100 Room Air 99.1 Sp02 EP Interpretation: reviewed, normal General Appearance: no apparent distress Head: other - Craniectomy left side Eyes: bilateral eye other - Difficult exam, patient's pupils do react ENT: normal pharynx Neck: supple, other - Evidence of previous tracheostomy Respiratory: no respiratory distress, no retraction, no accessory muscle use, crackles - Both lower lobes Cardiovascular #1: regular rate, rhythm Gastrointestinal: other - Feeding tube in place, suprapubic catheter in place, nontender Genitourinary: other - As above Musculoskeletal: other - Patient appears chronically debilitated, 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 Neurologic: responsive - To physical and verbal stimuli Skin: normal color Lymphatic: no adenopathy Medical Decision Making Diagnostic Impression: Primary Impression: UTI (urinary tract infection) Additional Impression: Encephalopathy ER Course Patient is a fairly complex patient with multiple differential to consideration including but not limited to cardiac cardiopulmonary , neurological , neurosurgical infectious ,and vascular emergencies patient has extensive blood work and imaging obtained no obvious acute pathology in the imaging Patient does show significant UTI Blood pressure remains appropriate Otherwise further hydrated antibiotics initiated and patient admitted for further care Labs Test 12/12/17 14:30 12/13/17 06:55 12/14/17 07:00 White Blood Count 7.5 K/UL (4.8-10.8) 5.4 K/UL (4.8-10.8) 5.5 K/UL (4.8-10.8) Red Blood Count 3.26 M/UL (4.20-5.40) 2.92 M/UL (4.20-5.40) 2.94 M/UL (4.20-5.40) Hemoglobin 9.5 G/DL (12.0-16.0) 8.6 G/DL (12.0-16.0) 8.8 G/DL (12.0-16.0) Hematocrit 29.9 % (37.0-47.0) 26.8 % (37.0-47.0) 26.5 % (37.0-47.0) Mean Corpuscular Volume 92 FL (80-99) 92 FL (80-99) 90 FL (80-99) Mean Corpuscular Hemoglobin 29.2 PG (27.0-31.0) 29.3 PG (27.0-31.0) 29.8 PG (27.0-31.0) Mean Corpuscular Hemoglobin Concent 31.9 G/DL (32.0-36.0) 32.0 G/DL (32.0-36.0) 33.2 G/DL (32.0-36.0) Red Cell Distribution Width 15.9 % (11.6-14.8) 15.9 % (11.6-14.8) 15.0 % (11.6-14.8) Platelet Count 562 K/UL (150-450) 435 K/UL (150-450) 375 K/UL (150-450) Mean Platelet Volume 6.9 FL (6.5-10.1) 6.9 FL (6.5-10.1) 7.2 FL (6.5-10.1) Neutrophils (%) (Auto) 57.6 % (45.0-75.0) 56.2 % (45.0-75.0) 69.8 % (45.0-75.0) Lymphocytes (%) (Auto) 21.9 % (20.0-45.0) 20.3 % (20.0-45.0) 15.1 % (20.0-45.0) Monocytes (%) (Auto) 10.4 % (1.0-10.0) 10.5 % (1.0-10.0) 6.4 % (1.0-10.0) Eosinophils (%) (Auto) 9.0 % (0.0-3.0) 11.6 % (0.0-3.0) 8.1 % (0.0-3.0) Basophils (%) (Auto) 1.2 % (0.0-2.0) 1.3 % (0.0-2.0) 0.8 % (0.0-2.0) Urine Color Pale yellow Urine Appearance Cloudy Urine pH 6 (4.5-8.0) Urine Specific [place] 1.020 (1.005-1.035) Urine Protein 4+ (NEGATIVE) Urine Glucose (UA) Negative (NEGATIVE) Urine Ketones Negative (NEGATIVE) Urine Blood 5+ (NEGATIVE) Urine Nitrite Negative (NEGATIVE) Urine Bilirubin Negative (NEGATIVE) Urine Urobilinogen Normal MG/DL (0.0-1.0) Urine Leukocyte Esterase 3+ (NEGATIVE) Urine RBC Tntc /HPF (0 - 2) Urine WBC Tntc /HPF (0 - 2) Urine Squamous Epithelial Cells Few /LPF (NONE/OCC) Urine Bacteria Moderate /HPF (NONE) Sodium Level 145 MMOL/L (136-145) 147 MMOL/L (136-145) 143 MMOL/L (136-145) Potassium Level 4.1 MMOL/L (3.5-5.1) 4.4 MMOL/L (3.5-5.1) 4.8 MMOL/L (3.5-5.1) Chloride Level 108 MMOL/L (98-107) 111 MMOL/L (98-107) 110 MMOL/L (98-107) Carbon Dioxide Level 27 MMOL/L (21-32) 26 MMOL/L (21-32) 23 MMOL/L (21-32) Anion Gap 10 mmol/L (5-15) 11 mmol/L (5-15) 10 mmol/L (5-15) Blood Urea Nitrogen 49 mg/dL (7-18) 48 mg/dL (7-18) 42 mg/dL (7-18) Creatinine 1.8 MG/DL (0.55-1.30) 1.7 MG/DL (0.55-1.30) 1.5 MG/DL (0.55-1.30) Estimat Glomerular Filtration Rate 29.3 mL/min (>60) 31.3 mL/min (>60) 36.2 mL/min (>60) Glucose Level 99 MG/DL (74-106) 103 MG/DL (74-106) 102 MG/DL (74-106) Lactic Acid Level 0.80 mmol/L (0.4-2.0) Calcium Level 10.0 MG/DL (8.5-10.1) 9.5 MG/DL (8.5-10.1) 9.4 MG/DL (8.5-10.1) Total Bilirubin 0.2 MG/DL (0.2-1.0) Aspartate Amino Transf (AST/SGOT) 66 U/L (15-37) Alanine Aminotransferase (ALT/SGPT) 91 U/L (12-78) Alkaline Phosphatase 185 U/L (46-116) Total Creatine Kinase 98 U/L (26-308) Creatine Kinase MB 5.9 NG/ML (0.0-3.6) Creatine Kinase MB Relative Index 6.0 Troponin I 0.000 ng/mL (0.000-0.056) 0.000 ng/mL (0.000-0.056) Pro-B-Type Natriuretic Peptide 670 pg/mL (0-125) Total Protein 8.9 G/DL (6.4-8.2) Albumin 2.7 G/DL (3.4-5.0) Globulin 6.2 g/dL Albumin/Globulin Ratio 0.4 (1.0-2.7) Lipase 812 U/L (73-393) Rhythm Strip Diag. Results EP Interpretation: yes Rate: 77 Rhythm: NSR, no PVC's, no ectopy Chest X-Ray Diagnostic Results Chest X-Ray Diagnostic Results : Chest X-Ray Ordered: Yes # of Views/Limited/Complete: 1 View Indication: Chest Pain EP Interpretation: Yes Interpretation: no consolidation, no pneumothorax, other - Right-sided atelectasis Impression: Other - Right-sided atelectasis Electronically Signed by: Tonie Squires DO CT/MRI/US Diagnostic Results CT/MRI/US Diagnostic Results : Impression CT headIMPRESSION: No change compared to the previous examination from 11/20/2017. No mass effect or edema or acute intracranial hemorrhage identified. Ventriculostomy demonstrated unchanged in position. No hydrocephalus demonstrated. Small ventricles suggest the possibility of over shunting. Correlate clinically. Large craniectomy defect chronic in nature bilaterally as described above. Large area of encephalomalacia involving the right cerebrum Last Vital Signs Date Time Temp Pulse Resp B/P (MAP) Pulse Ox O2 Delivery O2 Flow Rate FiO2 12/12/17 14:36 97.9 102 22 95/60 95 Room Air 97.9 Status: improved Disposition: ADMITTED INPATIENT Condition: Serious Referrals: RICARDO PIERCE MD (PCP) Tonie Squires DO Dec 12, 2017 17:43
[2017-12-12 18:00] VITALS: BP 104/62
[2017-12-12 20:45] VITALS: BP 105/65
--- NOTE | 2017-12-12 22:41 | Infectious Diseases Prog Note ---
Assessment/Plan Problems: (1) Hypotension Assessment & Plan: rule out sepsis , will start meropenem and vancomycin empirically pending blood culture, continue hydration (2) Catheter-associated urinary tract infection Assessment & Plan: previously due to MDR Providencia stuartii , will send urine culture and start meropenem empirically (3) Pancreatitis, acute Assessment & Plan: rule out gall stone , continue supportive care and hydration , monitor lipase level , needs US (4) Acute renal failure (ARF) Assessment & Plan: continue hydration and blood pressure support (5) Hydronephrosis of right kidney Assessment & Plan: suspect due to malfunctioning stent, may need stent removal (6) Abnormal LFTs Assessment & Plan: rule out gall stones , was screened previously for hepatitis , need US and MRCP (7) Altered mental state Assessment & Plan: due to the above , head CT was negative Subjective Allergies: Coded Allergies: CEFEPIME (Unverified Allergy, Unknown, 11/09/17) Objective Vital Signs Last 24 Hour Vital Signs Date Time Temp Pulse Resp B/P (MAP) Pulse Ox O2 Delivery O2 Flow Rate FiO2 12/12/17 21:23 97.9 94 21 105/65 100 Room Air 97.9 12/12/17 20:45 97.9 94 21 105/65 100 Room Air 97.9 12/12/17 18:00 94 22 104/62 98 Room Air 12/12/17 16:00 98.2 92 22 106/63 98 Room Air 98.2 12/12/17 14:36 97.9 102 22 95/60 95 Room Air 97.9 12/12/17 14:35 99.1 98 21 136/87 100 Room Air 99.1 Height (Feet): 5 Height (Inches): 7.00 Weight (Pounds): 175 Laboratory Tests Test 12/12/17 14:30 White Blood Count 7.5 K/UL (4.8-10.8) Red Blood Count 3.26 M/UL (4.20-5.40) L Hemoglobin 9.5 G/DL (12.0-16.0) L Hematocrit 29.9 % (37.0-47.0) L Mean Corpuscular Volume 92 FL (80-99) Mean Corpuscular Hemoglobin 29.2 PG (27.0-31.0) Mean Corpuscular Hemoglobin Concent 31.9 G/DL (32.0-36.0) L Red Cell Distribution Width 15.9 % (11.6-14.8) H Platelet Count 562 K/UL (150-450) H Mean Platelet Volume 6.9 FL (6.5-10.1) Neutrophils (%) (Auto) 57.6 % (45.0-75.0) Lymphocytes (%) (Auto) 21.9 % (20.0-45.0) Monocytes (%) (Auto) 10.4 % (1.0-10.0) H Eosinophils (%) (Auto) 9.0 % (0.0-3.0) H Basophils (%) (Auto) 1.2 % (0.0-2.0) Urine Color Pale yellow Urine Appearance Cloudy Urine pH 6 (4.5-8.0) Urine Specific [place] 1.020 (1.005-1.035) Urine Protein 4+ (NEGATIVE) H Urine Glucose (UA) Negative (NEGATIVE) Urine Ketones Negative (NEGATIVE) Urine Blood 5+ (NEGATIVE) H Urine Nitrite Negative (NEGATIVE) Urine Bilirubin Negative (NEGATIVE) Urine Urobilinogen Normal MG/DL (0.0-1.0) Urine Leukocyte Esterase 3+ (NEGATIVE) H Urine RBC Tntc /HPF (0 - 2) H Urine WBC Tntc /HPF (0 - 2) H Urine Squamous Epithelial Cells Few /LPF (NONE/OCC) Urine Bacteria Moderate /HPF (NONE) H Sodium Level 145 MMOL/L (136-145) Potassium Level 4.1 MMOL/L (3.5-5.1) Chloride Level 108 MMOL/L (98-107) H Carbon Dioxide Level 27 MMOL/L (21-32) Anion Gap 10 mmol/L (5-15) Blood Urea Nitrogen 49 mg/dL (7-18) H Creatinine 1.8 MG/DL (0.55-1.30) H Estimat Glomerular Filtration Rate 29.3 mL/min (>60) Glucose Level 99 MG/DL (74-106) Lactic Acid Level 0.80 mmol/L (0.4-2.0) Calcium Level 10.0 MG/DL (8.5-10.1) Total Bilirubin 0.2 MG/DL (0.2-1.0) Aspartate Amino Transf (AST/SGOT) 66 U/L (15-37) H Alanine Aminotransferase (ALT/SGPT) 91 U/L (12-78) H Alkaline Phosphatase 185 U/L (46-116) H Total Creatine Kinase 98 U/L (26-308) Creatine Kinase MB 5.9 NG/ML (0.0-3.6) H Creatine Kinase MB Relative Index 6.0 Troponin I 0.000 ng/mL (0.000-0.056) Pro-B-Type Natriuretic Peptide 670 pg/mL (0-125) H Total Protein 8.9 G/DL (6.4-8.2) H Albumin 2.7 G/DL (3.4-5.0) L Globulin 6.2 g/dL Albumin/Globulin Ratio 0.4 (1.0-2.7) L Lipase 812 U/L (73-393) H Kortney Quiñones M.D. Dec 12, 2017 22:41
[2017-12-12] MEDS ORDERED: Docusate 100mg cap ORAL PRN (23:15)
[2017-12-12] MEDS: Meropenem 1 GM in NS 55 ML IVPB SCH (23:52)
[2017-12-13] VITALS (7 sets, daily range): BP systolic 97–127; BP diastolic 48–79
[2017-12-13] MEDS ORDERED: Vancomycin 1.5gm/D5W 250ml 250 ML IVPB SCH
[2017-12-13] MEDS ORDERED: D5 1/2NS w/KCl 20mEq 1,000 ML IV SCH (00:05)
[2017-12-13 07:27] LABS: BASOPHILS % (AUTO) 1.3 % (0.0-2.0); EOSINOPHILS % (AUTO) 11.6 % (0.0-3.0); HEMATOCRIT 26.8 % (37.0-47.0); HEMOGLOBIN 8.6 G/DL (12.0-16.0); LYMPHOCYTES % (AUTO) 20.3 % (20.0-45.0); MEAN CORPUSCULAR VOLUME 92 FL (80-99); MONOCYTES % (AUTO) 10.5 % (1.0-10.0); NEUTROPHILS % (AUTO) 56.2 % (45.0-75.0); PLATELET COUNT 435 K/UL (150-450); RED BLOOD COUNT 2.92 M/UL (4.20-5.40); RED CELL DISTRIBUTION WIDTH 15.9 % (11.6-14.8); WHITE BLOOD COUNT 5.4 K/UL (4.8-10.8)
[2017-12-13 07:34] LABS: ANION GAP 11 mmol/L (5-15); BLOOD UREA NITROGEN 48 mg/dL (7-18); CALCIUM 9.5 MG/DL (8.5-10.1); CARBON DIOXIDE 26 MMOL/L (21-32); CHLORIDE 111 MMOL/L (98-107); CREATININE 1.7 MG/DL (0.55-1.30); POTASSIUM 4.4 MMOL/L (3.5-5.1); SODIUM 147 MMOL/L (136-145)
--- NOTE | 2017-12-13 08:33 | General Progress Note ---
Assessment/Plan Problem List: (1) Dysphagia ICD Codes: R13.10 - Dysphagia, unspecified SNOMED: 17390900, 534840192 (2) Anemia ICD Codes: D64.9 - Anemia, unspecified SNOMED: 661567309 Assessment/Plan start GTF fu H&H prn blood transfusion fu labs Subjective ROS Limited/Unobtainable: No Allergies: Coded Allergies: CEFEPIME (Unverified Allergy, Unknown, 11/09/17) Objective Last 24 Hour Vital Signs Date Time Temp Pulse Resp B/P (MAP) Pulse Ox O2 Delivery O2 Flow Rate FiO2 12/13/17 04:00 98.4 82 20 110/70 (83) 94 98.4 12/13/17 04:00 79 12/13/17 00:00 105 12/13/17 00:00 97.0 83 20 106/79 (88) 95 97.0 12/12/17 22:51 Nasal Cannula 2.0 12/12/17 21:44 89 12/12/17 21:36 Nasal Cannula 2.0 12/12/17 21:23 97.9 94 21 105/65 100 Room Air 97.9 12/12/17 20:45 97.9 94 21 105/65 100 Room Air 97.9 12/12/17 18:00 94 22 104/62 98 Room Air 12/12/17 16:00 98.2 92 22 106/63 98 Room Air 98.2 12/12/17 14:36 97.9 102 22 95/60 95 Room Air 97.9 12/12/17 14:35 99.1 98 21 136/87 100 Room Air 99.1 Intake and Output 12/12/17 12/13/17 19:00 07:00 Intake Total 150 ml 816 ml Output Total 10 ml 600 ml Balance 140 ml 216 ml Intake Free Water 60 ml IV Total 150 ml 756 ml Output Urine Total 10 ml 600 ml Laboratory Tests 12/12/17 14:30: White Blood Count 7.5, Red Blood Count 3.26L, Hemoglobin 9.5L, Hematocrit 29.9L , Mean Corpuscular Volume 92, Mean Corpuscular Hemoglobin 29.2, Mean Corpuscular Hemoglobin Concent 31.9L, Red Cell Distribution Width 15.9H, Platelet Count 562H, Mean Platelet Volume 6.9, Neutrophils (%) (Auto) 57.6, Lymphocytes (%) (Auto) 21.9, Monocytes (%) (Auto) 10.4H, Eosinophils (%) (Auto) 9.0H, Basophils (%) (Auto) 1.2, Urine Color Pale yellow, Urine Appearance Cloudy , Urine pH 6, Urine Specific [place] 1.020, Urine Protein 4+H, Urine Glucose (UA ) Negative, Urine Ketones Negative, Urine Blood 5+H, Urine Nitrite Negative, Urine Bilirubin Negative, Urine Urobilinogen Normal, Urine Leukocyte Esterase 3+ H, Urine RBC TntcH, Urine WBC TntcH, Urine Squamous Epithelial Cells Few, Urine Bacteria ModerateH, Sodium Level 145, Potassium Level 4.1, Chloride Level 108H, Carbon Dioxide Level 27, Anion Gap 10, Blood Urea Nitrogen 49H, Creatinine 1.8H , Estimat Glomerular Filtration Rate 29.3, Glucose Level 99, Lactic Acid Level 0.80, Calcium Level 10.0, Total Bilirubin 0.2, Aspartate Amino Transf (AST/SGOT ) 66H, Alanine Aminotransferase (ALT/SGPT) 91H, Alkaline Phosphatase 185H, Total Creatine Kinase 98, Creatine Kinase MB 5.9H, Creatine Kinase MB Relative Index 6.0, Troponin I 0.000, Pro-B-Type Natriuretic Peptide 670H, Total Protein 8.9H, Albumin 2.7L, Globulin 6.2, Albumin/Globulin Ratio 0.4L, Lipase 812H 12/13/17 06:55: White Blood Count 5.4, Red Blood Count 2.92L, Hemoglobin 8.6L, Hematocrit 26.8L , Mean Corpuscular Volume 92, Mean Corpuscular Hemoglobin 29.3, Mean Corpuscular Hemoglobin Concent 32.0, Red Cell Distribution Width 15.9H, Platelet Count 435, Mean Platelet Volume 6.9, Neutrophils (%) (Auto) 56.2, Lymphocytes (%) (Auto) 20.3, Monocytes (%) (Auto) 10.5H, Eosinophils (%) (Auto) 11.6H, Basophils (%) (Auto) 1.3, Sodium Level 147H, Potassium Level 4.4, Chloride Level 111H, Carbon Dioxide Level 26, Anion Gap 11, Blood Urea Nitrogen 48H, Creatinine 1.7H, Estimat Glomerular Filtration Rate 31.3, Glucose Level 103 , Calcium Level 9.5, Troponin I 0.000 Height (Feet): 5 Height (Inches): 7.00 Weight (Pounds): 175 General Appearance: no apparent distress EENT: normal ENT inspection Neck: supple Cardiovascular: normal rate, systolic murmur Respiratory/Chest: decreased breath sounds Abdomen: normal bowel sounds, non tender, soft Extremities: non-tender Laith Chan MD Dec 13, 2017 08:33
[2017-12-13] MEDS ORDERED: Midodrine 10mg tab GT SCH (09:00)
[2017-12-13] MEDS ORDERED: Heparin 5000 units/ml inj SUBQ SCH (09:00)
[2017-12-13] MEDS: Meropenem 1 GM in NS 55 ML IVPB SCH ×2 (10:52→23:32)
--- NOTE | 2017-12-13 13:17 | Consultation ---
Consult Note Consult Note CONSULTATION Patient: PATRICIA SHIELDS Date entered: 12/13/2017 Consult Note Consult Note Hematology-Oncology Consultation RFC: Anemia and hyperproteinemia eval DOS: 12/13/2017 RQ MD: Jose Montalvo HISTORY OF PRESENT ILLNESS: Patient presents by paramedics report of altered mental status patient is from a nursing facility upon review of medical records appears the patient was recently in the hospital as well a she herself is awake was trying to move her right arm when taking a history Is unclear the time of change in mentation USP reports the patient is usually more verbal There was no reports of vomiting or diarrhea patient apparently was diagnosed with UTI on recent presentation. Unclear regarding vomiting or diarrhea. Unclear regarding any trauma. Pt is known to me and was here 3 days ago. I have been consulted for the evaluation of anemia. Previous anemia w/u has been reviewed. Coded Allergies: CEFEPIME (Unverified Allergy, Unknown, 11/09/17) Patient History Past Medical History: see triage record, old chart reviewed Past Surgical History: other Pertinent Family History: none Social History: Denies: smoking Last Menstrual Period: unk Now: No Immunizations: other Reviewed Nursing Documentation: PMH: Agreed; PSxH: Agreed Nursing Documentation-PMH Hx Cardiac Problems: Yes - CHF Hx Hypertension: Yes Hx Cancer: No Hx Gastrointestinal Problems: Yes Hx Neurological Problems: Yes - obstructive HYDROCEPHALUS Hx Seizures: Yes Hx Traumatic Brain Injury: Yes Hx Speech Problem: Yes Hx Aphasia: Yes Hx Dysphasia: Yes Hx Neurologic Surgery: Yes - craniotomy ER ROS - General Review of Systems Constitutional: Reports: fever All Other Systems: limited - secondary to condition Other ROS is negative ER Physical Exam - General Physical Exam Vital Signs: Reviewed Sp02 EP Interpretation: reviewed General Appearance: lethargic, chronically Ill Head: normocephalic, atraumatic, other - rt craniotomy Eyes: bilateral eye PERRL, bilateral eye EOMI ENT: dry mucus membranes Neck: full range of motion, supple, no meningismus Respiratory: chest non-tender, lungs clear Cardiovascular #1: regular rate, rhythm, no murmur Gastrointestinal: normal bowel sounds, nt ++ peg Musculoskeletal: back normal Neurologic: other - no change from baseline Skin: warm/dry LABS: wbc 5.4 hgb 8.6 plt 435 ASSESSMENT AND RECOMMENDATIONS #. Anemia of chronic disease -- workup has been reviewed from before and noted to have high ferritin 1500, other labs consistent with ACD --> monitor and started on folic acid daily --> hgb goal >7, transfuse prn basis --> heparin 5k sq tid as ppx #. 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 She also has a history of a seizure disorder that is undefined. --> appreciate neuro recs from prior admission # Respiratory failure and now s/p takedown --> appreciate pulm recs # Urinary tract infection, and multiple episodes of sepsis. --> s/p abx treatment and seen by ID --> on liliana and flucon # Hydronephrosis r kidney --> may need stent exchange per uro, appreciate their recs # Dysphagia s/p peg tube --> getting gtube feeds # Trace right sided pleural effusion # Bioethics/hospice services consulted --> recommended hospice last admission Appreciate consultation greatly! : Dawit Mcclendon MD Dec 13, 2017 13:17
--- NOTE | 2017-12-13 13:31 | Infectious Diseases Prog Note ---
Assessment/Plan Problems: (1) Hypotension Assessment & Plan: rule out sepsis , continue meropenem and vancomycin empirically pending blood culture, continue hydration (2) Catheter-associated urinary tract infection Assessment & Plan: previously due to MDR Providencia stuartii , await urine culture and continue meropenem empirically (3) Pancreatitis, acute Assessment & Plan: rule out gall stone , continue supportive care and hydration , monitor lipase level , needs US (4) Acute renal failure (ARF) Assessment & Plan: continue hydration and blood pressure support (5) Hydronephrosis of right kidney Assessment & Plan: suspect due to malfunctioning stent, may need stent removal (6) Abnormal LFTs Assessment & Plan: rule out gall stones , was screened previously for hepatitis , need US and MRCP (7) Altered mental state Assessment & Plan: due to the above , head CT was negative Subjective Constitutional: Reports: no symptoms HEENT: Reports: no symptoms Respiratory: Reports: no symptoms Breasts: Reports: no symptoms Cardiovascular: Reports: no symptoms Gastrointestinal/Abdominal: Reports: no symptoms Genitourinary: Reports: no symptoms Neurologic: Reports: weakness Psychiatric: Reports: no symptoms Skin: Reports: ulcer Endocrine: Reports: no symptoms Hematologic: Reports: no symptoms Musculoskeletal: Reports: no symptoms Allergies: Coded Allergies: CEFEPIME (Unverified Allergy, Unknown, 11/09/17) Subjective she is more awake and responsive, resting in bed Objective Vital Signs Last 24 Hour Vital Signs Date Time Temp Pulse Resp B/P (MAP) Pulse Ox O2 Delivery O2 Flow Rate FiO2 12/13/17 09:55 Nasal Cannula 2.0 12/13/17 08:00 96.3 96 18 104/58 (73) 98 96.3 12/13/17 04:00 98.4 82 20 110/70 (83) 94 98.4 12/13/17 04:00 79 12/13/17 00:00 105 12/13/17 00:00 97.0 83 20 106/79 (88) 95 97.0 12/12/17 22:51 Nasal Cannula 2.0 12/12/17 21:44 89 12/12/17 21:36 Nasal Cannula 2.0 12/12/17 21:23 97.9 94 21 105/65 100 Room Air 97.9 12/12/17 20:45 97.9 94 21 105/65 100 Room Air 97.9 12/12/17 18:00 94 22 104/62 98 Room Air 12/12/17 16:00 98.2 92 22 106/63 98 Room Air 98.2 12/12/17 14:36 97.9 102 22 95/60 95 Room Air 97.9 12/12/17 14:35 99.1 98 21 136/87 100 Room Air 99.1 Height (Feet): 5 Height (Inches): 7.00 Weight (Pounds): 175 General Appearance: WD/WN, no acute distress HEENT: normocephalic, atraumatic, anicteric, mucous membranes moist, PERRL, EOMI, pharynx normal, supple, no JVD Respiratory/Chest: chest wall non-tender, no respiratory distress, no accessory muscle use, decreased breath sounds, crackles/rales Cardiovascular: normal peripheral pulses, normal rate, regular rhythm, no gallop/murmur, no JVD Abdomen: normal bowel sounds, soft, non tender, no organomegaly, non distended , no mass, no scars Extremities: no cyanosis, no clubbing Skin: no rash, no lesions, ulcers Neurologic/Psychiatric: alert, responsive Lymphatic: no neck adenopathy, no groin adenopathy Musculoskeletal: atrophy Microbiology Date/Time Source Procedure Growth Status 12/12/17 14:30 Urine,Clean Catch Urine Culture - Preliminary NO GROWTH Resulted Laboratory Tests Test 12/12/17 14:30 12/13/17 06:55 White Blood Count 7.5 K/UL (4.8-10.8) 5.4 K/UL (4.8-10.8) Red Blood Count 3.26 M/UL (4.20-5.40) L 2.92 M/UL (4.20-5.40) L Hemoglobin 9.5 G/DL (12.0-16.0) L 8.6 G/DL (12.0-16.0) L Hematocrit 29.9 % (37.0-47.0) L 26.8 % (37.0-47.0) L Mean Corpuscular Volume 92 FL (80-99) 92 FL (80-99) Mean Corpuscular Hemoglobin 29.2 PG (27.0-31.0) 29.3 PG (27.0-31.0) Mean Corpuscular Hemoglobin Concent 31.9 G/DL (32.0-36.0) L 32.0 G/DL (32.0-36.0) Red Cell Distribution Width 15.9 % (11.6-14.8) H 15.9 % (11.6-14.8) H Platelet Count 562 K/UL (150-450) H 435 K/UL (150-450) Mean Platelet Volume 6.9 FL (6.5-10.1) 6.9 FL (6.5-10.1) Neutrophils (%) (Auto) 57.6 % (45.0-75.0) 56.2 % (45.0-75.0) Lymphocytes (%) (Auto) 21.9 % (20.0-45.0) 20.3 % (20.0-45.0) Monocytes (%) (Auto) 10.4 % (1.0-10.0) H 10.5 % (1.0-10.0) H Eosinophils (%) (Auto) 9.0 % (0.0-3.0) H 11.6 % (0.0-3.0) H Basophils (%) (Auto) 1.2 % (0.0-2.0) 1.3 % (0.0-2.0) Urine Color Pale yellow Urine Appearance Cloudy Urine pH 6 (4.5-8.0) Urine Specific [place] 1.020 (1.005-1.035) Urine Protein 4+ (NEGATIVE) H Urine Glucose (UA) Negative (NEGATIVE) Urine Ketones Negative (NEGATIVE) Urine Blood 5+ (NEGATIVE) H Urine Nitrite Negative (NEGATIVE) Urine Bilirubin Negative (NEGATIVE) Urine Urobilinogen Normal MG/DL (0.0-1.0) Urine Leukocyte Esterase 3+ (NEGATIVE) H Urine RBC Tntc /HPF (0 - 2) H Urine WBC Tntc /HPF (0 - 2) H Urine Squamous Epithelial Cells Few /LPF (NONE/OCC) Urine Bacteria Moderate /HPF (NONE) H Sodium Level 145 MMOL/L (136-145) 147 MMOL/L (136-145) H Potassium Level 4.1 MMOL/L (3.5-5.1) 4.4 MMOL/L (3.5-5.1) Chloride Level 108 MMOL/L (98-107) H 111 MMOL/L (98-107) H Carbon Dioxide Level 27 MMOL/L (21-32) 26 MMOL/L (21-32) Anion Gap 10 mmol/L (5-15) 11 mmol/L (5-15) Blood Urea Nitrogen 49 mg/dL (7-18) H 48 mg/dL (7-18) H Creatinine 1.8 MG/DL (0.55-1.30) H 1.7 MG/DL (0.55-1.30) H Estimat Glomerular Filtration Rate 29.3 mL/min (>60) 31.3 mL/min (>60) Glucose Level 99 MG/DL (74-106) 103 MG/DL (74-106) Lactic Acid Level 0.80 mmol/L (0.4-2.0) Calcium Level 10.0 MG/DL (8.5-10.1) 9.5 MG/DL (8.5-10.1) Total Bilirubin 0.2 MG/DL (0.2-1.0) Aspartate Amino Transf (AST/SGOT) 66 U/L (15-37) H Alanine Aminotransferase (ALT/SGPT) 91 U/L (12-78) H Alkaline Phosphatase 185 U/L (46-116) H Total Creatine Kinase 98 U/L (26-308) Creatine Kinase MB 5.9 NG/ML (0.0-3.6) H Creatine Kinase MB Relative Index 6.0 Troponin I 0.000 ng/mL (0.000-0.056) 0.000 ng/mL (0.000-0.056) Pro-B-Type Natriuretic Peptide 670 pg/mL (0-125) H Total Protein 8.9 G/DL (6.4-8.2) H Albumin 2.7 G/DL (3.4-5.0) L Globulin 6.2 g/dL Albumin/Globulin Ratio 0.4 (1.0-2.7) L Lipase 812 U/L (73-393) H Current Medications Medications (Trade) Dose Ordered Sig/Tay Route PRN Reason Start Time Stop Time Status Last Admin Dose Admin Acetaminophen (Tylenol) 650 mg Q4H PRN ORAL Fever/Headache/Mild Pain 12/12/17 23:15 01/11/18 23:14 Dextrose (Dextrose 50%) 25 ml Q30M PRN IV Hypoglycemia 12/12/17 23:15 01/11/18 23:14 Dextrose (Dextrose 50%) 50 ml Q30M PRN IV Hypoglycemia 12/12/17 23:15 01/11/18 23:14 Dextrose/ Electrolytes 1,000 ml @ 75 mls/hr [id number] IV 12/13/17 00:05 01/12/18 00:04 12/12/17 23:51 Docusate Sodium (Colace) 200 mg Q8HR PRN ORAL Constipation 12/12/17 23:15 01/11/18 23:14 Heparin Sodium (Porcine) (Heparin 5000 units/ml) 5,000 units EVERY 12 HOURS SUBQ 12/13/17 09:00 01/12/18 08:59 12/13/17 09:09 Lansoprazole (Prevacid) 30 mg DAILY GT 12/13/17 09:00 01/12/18 08:59 12/13/17 09:08 Levetiracetam (Keppra) 1,000 mg TWICE A DAY ORAL 12/13/17 09:00 01/12/18 08:59 12/13/17 09:08 Meropenem 1 gm/ Sodium Chloride 55 ml @ 110 mls/hr Q12H IVPB 12/12/17 23:00 12/17/17 22:59 12/13/17 10:52 Midodrine (Pro-Amatine) 10 mg THREE TIMES A DAY GT 12/13/17 09:00 01/12/18 08:59 12/13/17 09:08 Saccharomyces Boulardii (Florastor) 250 mg TID ORAL 12/13/17 09:00 01/12/18 08:59 12/13/17 09:08 Vancomycin HCl (Vanco rx to dose) 1 ea DAILY PRN MISC Per rx protocol 12/12/17 22:30 01/11/18 22:29 Vancomycin HCl/ Dextrose 250 ml @ 167 mls/hr Q24H IVPB 12/13/17 00:00 12/18/17 00:00 12/13/17 00:24 Kortney Quiñones M.D. Dec 13, 2017 13:31
[2017-12-13] MEDS: D5 1/2NS w/KCl 20mEq 1,000 ML IV SCH (13:48)
[2017-12-13] MEDS ORDERED: Docusate 100mg cap ORAL PRN (14:00)
--- NOTE | 2017-12-13 16:58 | History & Physical ---
History and Physical History & Physicial (1) Sepsis (2) Catheter-associated urinary tract infection (3) Dehydration (4) Electrolyte imbalance (5) Dehydration, severe Assessment/Plan Optimize pulmonary hygiene/mobilize as tolerated Abx per ID, F/U repeat CX's Monitor volumes and electrolytes TF's as tolerated Check abd US, GI eval DVT Px; Hep SQ prn bipap for distress supllemental o2 oral care and wound care Racquel Burrows DO Dec 13, 2017 16:58
[2017-12-13] MEDS: Midodrine 10mg tab GT SCH (17:40)
--- NOTE | 2017-12-13 18:32 | Consultation ---
DATE OF CONSULTATION: 12/12/2017 INFECTIOUS DISEASE CONSULTATION REQUESTING PHYSICIAN: Jose Montalvo M.D. REASON FOR CONSULTATION: Hypertension, possible sepsis with catheter-associated urinary tract infection from recent admission. Recommendation for antibiotics treatment and further management. HISTORY OF PRESENT ILLNESS: The patient is a 52-year-old female with past medical history of CHF, hypertension, dysphagia, obstructive hydrocephalus, status post [employer] shunt, seizure disorder, traumatic brain injury with aphasia, and dysphagia, was [facility] to [facility] for altered mental status with unknown duration. As per half-way reports, the patient is usually more verbal, but she was not like that. Today, no nausea, vomiting, or diarrhea. The patient was recently discharged from the hospital after she was found to have catheter-associated urinary tract infection due to Providencia stuartii and she was discharged on ertapenem to finish her course of treatment for two weeks. So, Infectious Disease consultation was requested for antibiotics management and further care. As of note, the patient is aphasic, cannot provide good history. History was mainly obtained from the medical record and nursing staff. PAST MEDICAL HISTORY: Significant for CHF, hypertension, GERD, obstructive hydrocephalus, status post shunt, seizure disorder, traumatic brain injury, aphasia, and dysphagia. PAST SURGICAL HISTORY: She had craniotomy and [employer] shunt and PEG tube placement. MEDICATIONS: The patient received clindamycin and metronidazole in the emergency room. For the rest of her medications, please refer to MAR. ALLERGIES: She is allergic to cefepime. SOCIAL HISTORY: She is a half-way patient. No recent drugs, tobacco, or alcohol. FAMILY HISTORY: Unable to obtain. REVIEW OF SYSTEMS: Unable to obtain. The patient is a poor historian. PHYSICAL EXAMINATION: VITAL SIGNS: Temperature 98.2 degrees, pulse 92, respirations 22, blood pressure 106/63 and saturation 98% on room air. GENERAL: Middle-aged female, lying in bed with paresis, not in acute distress. Alert, responsive to verbal command. HEENT: She had large craniotomy on the right side. Pupils reactive to light equally. Pale sclerae. Moist oral mucosa. No exudate or thrush. NECK: Supple. No lymphadenopathy. CARDIOVASCULAR: Regular rate and rhythm. No murmur or gallop. LUNGS: She had diminished breathing sound on the right lower lobe with crackles. No wheezing or rhonchi. Normal breathing efforts. ABDOMEN: Soft, nontender, nondistended. Normal bowel sounds. No hepatosplenomegaly or ascites. PEG tube site looks intact. EXTREMITIES: No edema or cyanosis. Muscle atrophy with contraction mainly in the left upper extremity. Right heel pressure wound with skin break, not infected. SKIN: No rash. No hives. Sacral skin erythema with minimal skin break. LABORATORY AND DIAGNOSTIC DATA: Showed white count of 5.4, hemoglobin of 8.6, and platelet count of 435,000. BUN of 48 and creatinine of 1.7. AST of 66, ALT of 91, and alkaline phosphatase of 185. Lipase of 812. Urinalysis showed +3 leukocyte esterase, WBC too numerous to count, and moderate amount of bacteria. Imaging, chest x-ray showed right basal atelectases. Head CT scan showed no change compared to the previous exam on 11/20/2017. No mass effect, edema, or acute intracranial hemorrhage identified. Ventriculostomy demonstrated change in position. No hydrocephalus demonstrated. ASSESSMENT AND RECOMMENDATION: 1. Catheter-associated urinary tract infection, previously due to multidrug resistant Providencia stuartii. We will send urine culture and start meropenem empiric coverage. 2. Hypotension. Rule out sepsis. We will start meropenem and vancomycin empirically pending blood culture. Continue hydration to maintain blood pressure systolic more than 100. 3. Acute renal failure due to the above. Continue hydration and blood pressure support. Monitor renal function. 4. Acute pancreatitis, rule out gallstone. Continue supportive care and hydration. Monitor lipase level. Need ultrasound or MRCP to confirm. 5. Hydronephrosis of the right kidney, suspect due to malfunctioning stent. May need stent removal. Recommend Urology consult. 6. Abnormal liver function tests, rule out gallstones, which may have passed. The patient was screen previously for hepatitis. Need ultrasound and MRCP and GI consult as per primary. 7. Altered mental status due to the above. Head CT was negative. Continue hydration and antibiotics. Avoid sedative. Thank you for the consult. Infectious Disease will continue to follow. Kortney Quiñones M.D. DR: Geno JOB#: [id number] CC:
[2017-12-13] MEDS: Heparin 5000 units/ml inj SUBQ SCH (21:08)
[2017-12-14] MEDS ORDERED: Vancomycin 1.5gm/D5W 250ml 250 ML IVPB SCH
[2017-12-14 04:00] VITALS: BP 115/64
[2017-12-14] MEDS: D5 1/2NS w/KCl 20mEq 1,000 ML IV SCH ×2 (04:09→15:59)
--- NOTE | 2017-12-14 07:48 | General Progress Note ---
Assessment/Plan Problem List: (1) Dysphagia ICD Codes: R13.10 - Dysphagia, unspecified SNOMED: 44889027, [id number] (2) Anemia ICD Codes: D64.9 - Anemia, unspecified SNOMED: 939989329 Assessment/Plan elevated residuals>>> will add reglan GTF will restart today fu H&H prn blood transfusion fu labs Subjective ROS Limited/Unobtainable: No Allergies: Coded Allergies: CEFEPIME (Unverified Allergy, Unknown, 11/09/17) Objective Last 24 Hour Vital Signs Date Time Temp Pulse Resp B/P (MAP) Pulse Ox O2 Delivery O2 Flow Rate FiO2 12/14/17 04:00 95.7 94 20 115/64 (81) 99 95.7 12/13/17 21:00 Nasal Cannula 2.0 12/13/17 20:37 Nasal Cannula 2.0 28 12/13/17 20:37 98 Nasal Cannula 2.0 28 12/13/17 20:00 95.8 99 20 127/73 (91) 96 95.8 12/13/17 16:00 97.3 89 19 106/53 (70) 100 97.3 12/13/17 13:00 98.6 78 18 99/48 (65) 100 98.6 12/13/17 12:00 96.3 78 19 97/70 (79) 100 96.3 12/13/17 09:55 Nasal Cannula 2.0 12/13/17 08:00 96.3 96 18 104/58 (73) 98 96.3 Intake and Output 12/13/17 12/14/17 19:00 07:00 Intake Total 450 ml Output Total 450 ml 500 ml Balance 0 ml -500 ml Intake Free Water 150 ml Tube Feeding 300 ml Output Urine Total 450 ml 500 ml # Bowel Movements 1 Laboratory Tests 12/14/17 07:00: White Blood Count [Pending], Red Blood Count [Pending], Hemoglobin [Pending], Hematocrit [Pending], Mean Corpuscular Volume [Pending], Mean Corpuscular Hemoglobin [Pending], Mean Corpuscular Hemoglobin Concent [Pending], Red Cell Distribution Width [Pending], Platelet Count [Pending], Mean Platelet Volume [ Pending], Neutrophils (%) (Auto) [Pending], Lymphocytes (%) (Auto) [Pending], Monocytes (%) (Auto) [Pending], Eosinophils (%) (Auto) [Pending], Basophils (%) (Auto) [Pending], Sodium Level [Pending], Potassium Level [Pending], Chloride Level [Pending], Carbon Dioxide Level [Pending], Blood Urea Nitrogen [Pending], Creatinine [Pending], Estimat Glomerular Filtration Rate [Pending], Glucose Level [Pending], Calcium Level [Pending] Height (Feet): 5 Height (Inches): 7.00 Weight (Pounds): 175 General Appearance: no apparent distress EENT: normal ENT inspection Neck: supple Cardiovascular: normal rate Respiratory/Chest: decreased breath sounds Abdomen: normal bowel sounds, non tender, soft Extremities: non-tender Laith Chan MD Dec 14, 2017 07:48
[2017-12-14 07:51] LABS: BASOPHILS % (AUTO) 0.8 % (0.0-2.0); EOSINOPHILS % (AUTO) 8.1 % (0.0-3.0); HEMATOCRIT 26.5 % (37.0-47.0); HEMOGLOBIN 8.8 G/DL (12.0-16.0); LYMPHOCYTES % (AUTO) 15.1 % (20.0-45.0); MEAN CORPUSCULAR VOLUME 90 FL (80-99); MONOCYTES % (AUTO) 6.4 % (1.0-10.0); NEUTROPHILS % (AUTO) 69.8 % (45.0-75.0); PLATELET COUNT 375 K/UL (150-450); RED BLOOD COUNT 2.94 M/UL (4.20-5.40); WHITE BLOOD COUNT 5.5 K/UL (4.8-10.8)
[2017-12-14 08:00] VITALS: BP 115/80
[2017-12-14] MEDS ORDERED: Metoclopramide 10mg/2ml Inj IVP PRN (08:00)
[2017-12-14 08:13] LABS: ANION GAP 10 mmol/L (5-15); BLOOD UREA NITROGEN 42 mg/dL (7-18); CALCIUM 9.4 MG/DL (8.5-10.1); CARBON DIOXIDE 23 MMOL/L (21-32); CHLORIDE 110 MMOL/L (98-107); CREATININE 1.5 MG/DL (0.55-1.30); POTASSIUM 4.8 MMOL/L (3.5-5.1); SODIUM 143 MMOL/L (136-145)
[2017-12-14] MEDS: Midodrine 10mg tab GT SCH ×3 (08:35→17:22)
[2017-12-14] MEDS: Heparin 5000 units/ml inj SUBQ SCH ×2 (08:36→21:00)
[2017-12-14 12:00] VITALS: BP 118/82
--- NOTE | 2017-12-14 12:05 | Cardiology Report ---
APPROVED REPORT EKG Measurement Heart [id number] Sinus tachycardia RV conduction delay Otherwise normal ECG
[2017-12-14] MEDS: Meropenem 1 GM in NS 55 ML IVPB SCH (12:40)
--- NOTE | 2017-12-14 14:47 | Infectious Diseases Prog Note ---
Assessment/Plan Problems: (1) Hypotension Assessment & Plan: not due to sepsis , with negative blood culture , will stop meropenem and vancomycin empirically , continue hydration. will monitor off antibiotics (2) Catheter-associated urinary tract infection Assessment & Plan: previously due to MDR Providencia stuartii , resolved . repeated urine culture grew small colony of yeast which is contaminant . will stop meropenem empirically. monitor off antibiotics (3) Pancreatitis, acute Assessment & Plan: rule out gall stone , continue supportive care and hydration , monitor lipase level , needs US (4) Acute renal failure (ARF) Assessment & Plan: continue hydration and blood pressure support , avoid nephrotoxics (5) Hydronephrosis of right kidney Assessment & Plan: suspect due to malfunctioning stent, may need stent removal (6) Abnormal LFTs Assessment & Plan: rule out gall stones , was screened previously for hepatitis , may need US and MRCP (7) Altered mental state Assessment & Plan: due to the above , resolved, head CT was negative for acute pathology . Subjective Constitutional: Reports: no symptoms HEENT: Reports: no symptoms Respiratory: Reports: no symptoms Breasts: Reports: no symptoms Cardiovascular: Reports: no symptoms Gastrointestinal/Abdominal: Reports: no symptoms Genitourinary: Reports: no symptoms Neurologic: Reports: no symptoms Psychiatric: Reports: no symptoms Skin: Reports: ulcer Endocrine: Reports: no symptoms Hematologic: Reports: no symptoms Musculoskeletal: Reports: pain, stiffness Allergies: Coded Allergies: CEFEPIME (Unverified Allergy, Unknown, 11/09/17) Subjective she is more awake and responsive, resting in bed, denied any symptoms Objective Vital Signs Last 24 Hour Vital Signs Date Time Temp Pulse Resp B/P (MAP) Pulse Ox O2 Delivery O2 Flow Rate FiO2 12/14/17 12:00 97.9 89 17 118/82 (94) 98 97.9 12/14/17 09:00 Nasal Cannula 2.0 12/14/17 08:00 97.9 99 19 115/80 (92) 98 97.9 12/14/17 07:55 97 Nasal Cannula 2.0 12/14/17 07:55 Nasal Cannula 2.0 28 12/14/17 04:00 95.7 94 20 115/64 (81) 99 95.7 12/13/17 21:00 Nasal Cannula 2.0 12/13/17 20:37 Nasal Cannula 2.0 18 20:37 98 Nasal Cannula 2.0 28 12/13/17 20:00 95.8 99 20 127/73 (91) 96 95.8 12/13/17 16:00 97.3 89 19 106/53 (70) 100 97.3 Height (Feet): 5 Height (Inches): 7.00 Weight (Pounds): 175 General Appearance: WD/WN, no acute distress HEENT: atraumatic, anicteric, mucous membranes moist, PERRL, EOMI, pharynx normal, supple, no JVD, other - right large craniotomy Respiratory/Chest: chest wall non-tender, normal breath sounds, no respiratory distress, no accessory muscle use, decreased breath sounds Cardiovascular: normal peripheral pulses, normal rate, regular rhythm, no gallop/murmur, no JVD Abdomen: normal bowel sounds, soft, non tender, no organomegaly, non distended , no mass, no scars Genitourinary: normal external genitalia Extremities: no cyanosis, no clubbing Skin: no rash, no lesions, ulcers - right heel and sacrum Neurologic/Psychiatric: alert, responsive Lymphatic: no neck adenopathy, no groin adenopathy Musculoskeletal: no effusion, atrophy Microbiology Date/Time Source Procedure Growth Status 12/12/17 14:45 Blood Blood Culture - Preliminary NO GROWTH AFTER 24 HOURS Resulted 12/12/17 14:30 Blood Blood Culture - Preliminary NO GROWTH AFTER 24 HOURS Resulted 12/13/17 05:00 Indwelling Cath Urine Culture - Preliminary NO GROWTH Resulted 12/12/17 14:30 Urine,Clean Catch Urine Culture - Preliminary Yeast Species Resulted Laboratory Tests Test 12/14/17 07:00 White Blood Count 5.5 K/UL (4.8-10.8) Red Blood Count 2.94 M/UL (4.20-5.40) L Hemoglobin 8.8 G/DL (12.0-16.0) L Hematocrit 26.5 % (37.0-47.0) L Mean Corpuscular Volume 90 FL (80-99) Mean Corpuscular Hemoglobin 29.8 PG (27.0-31.0) Mean Corpuscular Hemoglobin Concent 33.2 G/DL (32.0-36.0) Red Cell Distribution Width 15.0 % (11.6-14.8) H Platelet Count 375 K/UL (150-450) Mean Platelet Volume 7.2 FL (6.5-10.1) Neutrophils (%) (Auto) 69.8 % (45.0-75.0) Lymphocytes (%) (Auto) 15.1 % (20.0-45.0) L Monocytes (%) (Auto) 6.4 % (1.0-10.0) Eosinophils (%) (Auto) 8.1 % (0.0-3.0) H Basophils (%) (Auto) 0.8 % (0.0-2.0) Sodium Level 143 MMOL/L (136-145) Potassium Level 4.8 MMOL/L (3.5-5.1) Chloride Level 110 MMOL/L (98-107) H Carbon Dioxide Level 23 MMOL/L (21-32) Anion Gap 10 mmol/L (5-15) Blood Urea Nitrogen 42 mg/dL (7-18) H Creatinine 1.5 MG/DL (0.55-1.30) H Estimat Glomerular Filtration Rate 36.2 mL/min (>60) Glucose Level 102 MG/DL (74-106) Calcium Level 9.4 MG/DL (8.5-10.1) Current Medications Medications (Trade) Dose Ordered Sig/Tay Route PRN Reason Start Time Stop Time Status Last Admin Dose Admin Acetaminophen (Tylenol) 650 mg Q4H PRN ORAL Fever/Headache/Mild Pain 12/13/17 13:30 01/11/18 13:29 12/13/17 17:41 Dextrose (Dextrose 50%) 25 ml Q30M PRN IV Hypoglycemia 12/13/17 13:15 01/11/18 23:14 Dextrose (Dextrose 50%) 50 ml Q30M PRN IV Hypoglycemia 12/13/17 13:15 01/11/18 23:14 Dextrose/ Electrolytes 1,000 ml @ 75 mls/hr [id number] IV 12/13/17 13:15 01/12/18 00:04 12/14/17 04:09 Docusate Sodium (Colace) 200 mg Q8H PRN ORAL Constipation 12/13/17 14:00 01/12/18 13:59 Heparin Sodium (Porcine) (Heparin 5000 units/ml) 5,000 units EVERY 12 HOURS SUBQ 12/13/17 21:00 01/12/18 08:59 12/14/17 08:36 Lansoprazole (Prevacid) 30 mg DAILY GT 12/14/17 09:00 01/12/18 08:59 12/14/17 08:35 Levetiracetam (Keppra) 1,000 mg Q12HR ORAL 12/13/17 21:00 01/12/18 20:59 12/14/17 08:35 Meropenem 1 gm/ Sodium Chloride 55 ml @ 110 mls/hr Q12H IVPB 12/13/17 23:00 12/17/17 22:59 12/14/17 12:40 Metoclopramide HCl (Reglan) 10 mg Q8H PRN IVP Nausea & Vomiting 12/14/17 08:00 01/13/18 07:59 12/14/17 08:37 Midodrine (Pro-Amatine) 10 mg THREE TIMES A DAY GT 12/13/17 18:00 01/12/18 08:59 12/14/17 12:41 Saccharomyces Boulardii (Florastor) 250 mg TID ORAL 12/13/17 18:00 01/12/18 08:59 12/14/17 12:41 Vancomycin HCl (Vanco rx to dose) 1 ea DAILY PRN MISC Per rx protocol 12/13/17 13:30 01/12/18 13:29 Vancomycin HCl/ Dextrose 250 ml @ 167 mls/hr Q24H IVPB 12/14/17 00:00 12/18/17 00:00 12/14/17 00:12 Kortney Quiñones M.D. Dec 14, 2017 14:47
[2017-12-14 15:11] LABS: ALANINE AMINOTRANSFERASE 69 U/L (12-78); ALBUMIN 2.5 G/DL (3.4-5.0); ALKALINE PHOSPHATASE 159 U/L (46-116); ASPARTATE AMINO TRANSFERASE 77 U/L (15-37); BILIRUBIN,DIRECT < 0.1 MG/DL (0.0-0.3); BILIRUBIN,TOTAL 0.2 MG/DL (0.2-1.0)
--- NOTE | 2017-12-14 15:58 | Pulmonology Progress Note ---
Assessment/Plan Assessment/Plan (1) Sepsis (2) Catheter-associated urinary tract infection (3) Dehydration (4) Electrolyte imbalance (5) Dehydration, severe Assessment/Plan Optimize pulmonary hygiene/mobilize as tolerated Abx per ID, F/U repeat CX's-yeast thus far Monitor volumes and electrolytes TF's as tolerated DVT Px; hold heparin 24 hours due to hematuria prn bipap for distress supplemental o2 oral care and wound care Subjective ROS Limited/Unobtainable: Yes Allergies: Coded Allergies: CEFEPIME (Unverified Allergy, Unknown, 11/09/17) Subjective eyes open no distres tolerating tf not getting oob mild hematurai noted Objective Last 24 Hour Vital Signs Date Time Temp Pulse Resp B/P (MAP) Pulse Ox O2 Delivery O2 Flow Rate FiO2 12/14/17 12:00 97.9 89 17 118/82 (94) 98 97.9 12/14/17 09:00 Nasal Cannula 2.0 12/14/17 08:00 97.9 99 19 115/80 (92) 98 97.9 12/14/17 07:55 97 Nasal Cannula 2.0 28 12/14/17 07:55 Nasal Cannula 2.0 28 12/14/17 04:00 95.7 94 20 115/64 (81) 99 95.7 12/13/17 21:00 Nasal Cannula 2.0 12/13/17 20:37 Nasal Cannula 2.0 28 12/13/17 20:37 98 Nasal Cannula 2.0 28 12/13/17 20:00 95.8 99 20 127/73 (91) 96 95.8 12/13/17 16:00 97.3 89 19 106/53 (70) 100 97.3 Intake and Output 12/13/17 12/14/17 18:59 06:59 Intake Total 450 ml Output Total 450 ml 500 ml Balance 0 ml -500 ml Intake Free Water 150 ml Tube Feeding 300 ml Output Urine Total 450 ml 500 ml # Bowel Movements 1 General Appearance: cachetic HEENT: anicteric, supple Respiratory/Chest: lungs clear, normal breath sounds Cardiovascular: normal peripheral pulses, regular rhythm Abdomen: soft, non tender, no organomegaly Neurologic/Psychiatric: alert Microbiology Date/Time Source Procedure Growth Status 12/12/17 14:45 Blood Blood Culture - Preliminary NO GROWTH AFTER 24 HOURS Resulted 12/12/17 14:30 Blood Blood Culture - Preliminary NO GROWTH AFTER 24 HOURS Resulted 12/13/17 05:00 Indwelling Cath Urine Culture - Preliminary NO GROWTH Resulted 12/12/17 14:30 Urine,Clean Catch Urine Culture - Preliminary Yeast Species Resulted Laboratory Tests 12/14/17 07:00: White Blood Count 5.5, Red Blood Count 2.94L, Hemoglobin 8.8L, Hematocrit 26.5L , Mean Corpuscular Volume 90, Mean Corpuscular Hemoglobin 29.8, Mean Corpuscular Hemoglobin Concent 33.2, Red Cell Distribution Width 15.0H, Platelet Count 375, Mean Platelet Volume 7.2, Neutrophils (%) (Auto) 69.8, Lymphocytes (%) (Auto) 15.1L, Monocytes (%) (Auto) 6.4, Eosinophils (%) (Auto) 8.1H, Basophils (%) (Auto) 0.8, Sodium Level 143, Potassium Level 4.8, Chloride Level 110H, Carbon Dioxide Level 23, Anion Gap 10, Blood Urea Nitrogen 42H, Creatinine 1.5H, Estimat Glomerular Filtration Rate 36.2, Glucose Level 102, Calcium Level 9.4, Total Bilirubin 0.2, Direct Bilirubin < 0.1, Aspartate Amino Transf (AST/SGOT) 77H, Alanine Aminotransferase (ALT/SGPT) 69, Alkaline Phosphatase 159H, Total Protein 7.6, Albumin 2.5L, Lipase 512H Current Medications Medications (Trade) Dose Ordered Sig/Tay Route PRN Reason Start Time Stop Time Status Last Admin Dose Admin Acetaminophen (Tylenol) 650 mg Q4H PRN ORAL Fever/Headache/Mild Pain 12/13/17 13:30 01/11/18 13:29 12/13/17 17:41 Dextrose (Dextrose 50%) 25 ml Q30M PRN IV Hypoglycemia 12/13/17 13:15 01/11/18 23:14 Dextrose (Dextrose 50%) 50 ml Q30M PRN IV Hypoglycemia 12/13/17 13:15 01/11/18 23:14 Dextrose/ Electrolytes 1,000 ml @ 75 mls/hr [id number] IV 12/13/17 13:15 01/12/18 00:04 12/14/17 04:09 Docusate Sodium (Colace) 200 mg Q8H PRN ORAL Constipation 12/13/17 14:00 01/12/18 13:59 Heparin Sodium (Porcine) (Heparin 5000 units/ml) 5,000 units EVERY 12 HOURS SUBQ 12/13/17 21:00 01/12/18 08:59 12/14/17 08:36 Lansoprazole (Prevacid) 30 mg DAILY GT 12/14/17 09:00 01/12/18 08:59 12/14/17 08:35 Levetiracetam (Keppra) 1,000 mg Q12HR ORAL 12/13/17 21:00 01/12/18 20:59 12/14/17 08:35 Metoclopramide HCl (Reglan) 10 mg Q8H PRN IVP Nausea & Vomiting 12/14/17 08:00 01/13/18 07:59 12/14/17 08:37 Midodrine (Pro-Amatine) 10 mg THREE TIMES A DAY GT 12/13/17 18:00 01/12/18 08:59 12/14/17 12:41 Saccharomyces Boulardii (Florastor) 250 mg TID ORAL 12/13/17 18:00 01/12/18 08:59 12/14/17 12:41 Racquel Fam DO Dec 14, 2017 15:58
[2017-12-14 16:00] VITALS: BP 96/68
--- NOTE | 2017-12-14 17:05 | General Progress Note ---
Assessment/Plan Status: stable Assessment/Plan #. Anemia of chronic disease -- workup has been reviewed from before and noted to have high ferritin 1500, other labs consistent with ACD --> Cont to monitor --> started on folic acid daily --> hgb goal >7, transfuse prn basis --> heparin 5k sq tid as ppx --> Current hgb, 8.8 #. 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 She also has a history of a seizure disorder that is undefined. --> appreciate neuro recs from prior admission # Respiratory failure and now s/p takedown --> appreciate pulm recs # Urinary tract infection, and multiple episodes of sepsis. --> s/p abx treatment and seen by ID --> on liliana and flucon # Hydronephrosis r kidney --> may need stent exchange per uro, appreciate their recs # Dysphagia s/p peg tube --> getting gtube feeds # Trace right sided pleural effusion # Bioethics/hospice services consulted --> recommended hospice last admission Subjective Date patient seen: Dec 14, 2017 Hematologic/Lymphatic: Reports: anemia Allergies: Coded Allergies: CEFEPIME (Unverified Allergy, Unknown, 11/09/17) All Systems: reviewed and negative except above Subjective No acute events. H/H stable. Heparin on hold for pinkish colored urine. Objective Last 24 Hour Vital Signs Date Time Temp Pulse Resp B/P (MAP) Pulse Ox O2 Delivery O2 Flow Rate FiO2 12/14/17 16:00 97.7 82 19 96/68 (77) 97 97.7 12/14/17 12:00 97.9 89 17 118/82 (94) 98 97.9 12/14/17 09:00 Nasal Cannula 2.0 12/14/17 08:00 97.9 99 19 115/80 (92) 98 97.9 12/14/17 07:55 97 Nasal Cannula 2.0 28 12/14/17 07:55 Nasal Cannula 2.0 28 12/14/17 04:00 95.7 94 20 115/64 (81) 99 95.7 12/13/17 21:00 Nasal Cannula 2.0 12/13/17 20:37 Nasal Cannula 2.0 28 12/13/17 20:37 98 Nasal Cannula 2.0 28 12/13/17 20:00 95.8 99 20 127/73 (91) 96 95.8 Intake and Output 12/13/17 12/14/17 19:00 07:00 Intake Total 450 ml Output Total 450 ml 500 ml Balance 0 ml -500 ml Intake Free Water 150 ml Tube Feeding 300 ml Output Urine Total 450 ml 500 ml # Bowel Movements 1 Laboratory Tests 12/14/17 07:00: White Blood Count 5.5, Red Blood Count 2.94L, Hemoglobin 8.8L, Hematocrit 26.5L , Mean Corpuscular Volume 90, Mean Corpuscular Hemoglobin 29.8, Mean Corpuscular Hemoglobin Concent 33.2, Red Cell Distribution Width 15.0H, Platelet Count 375, Mean Platelet Volume 7.2, Neutrophils (%) (Auto) 69.8, Lymphocytes (%) (Auto) 15.1L, Monocytes (%) (Auto) 6.4, Eosinophils (%) (Auto) 8.1H, Basophils (%) (Auto) 0.8, Sodium Level 143, Potassium Level 4.8, Chloride Level 110H, Carbon Dioxide Level 23, Anion Gap 10, Blood Urea Nitrogen 42H, Creatinine 1.5H, Estimat Glomerular Filtration Rate 36.2, Glucose Level 102, Calcium Level 9.4, Total Bilirubin 0.2, Direct Bilirubin < 0.1, Aspartate Amino Transf (AST/SGOT) 77H, Alanine Aminotransferase (ALT/SGPT) 69, Alkaline Phosphatase 159H, Total Protein 7.6, Albumin 2.5L, Lipase 512H Height (Feet): 5 Height (Inches): 7.00 Weight (Pounds): 175 General Appearance: no apparent distress EENT: PERRL/EOMI Neck: normal alignment Cardiovascular: normal peripheral pulses Respiratory/Chest: no respiratory distress Abdomen: soft Dawit Mcclendon MD Dec 14, 2017 17:05
--- NOTE | 2017-12-14 18:00 | History and Physical Report ---
DATE OF ADMISSION: 12/12/2017 REASON FOR ADMISSION: Sepsis, urinary tract infection, and altered mental status. HISTORY OF PRESENT ILLNESS: An elderly female who was just discharged from this facility two days prior, now readmitted with altered level of consciousness, felt to have recurrent urinary tract infection, started on IV antibiotics and IV fluids. She clinically is improving. Her vital signs have been stable and without any reports of chest pain, shortness of breath, nausea, or diarrhea prior to her return to the facility. PAST MEDICAL HISTORY: Includes: 1. Anemia of chronic disease. 2. Hyperproteinemia. 3. Thrombocytopenia. 4. Severe brain trauma with right-sided craniotomy with significant right brain encephalomalacia. 5. History of seizure disorder. 6. Respiratory failure, status post trach and cannulize. 7. Recurrent urinary tract infection. 8. Hydronephrosis of the right kidney. 9. Dysphagia, status post PEG tube. 10. Pleural effusions. PAST SURGICAL HISTORY: 1. Tracheostomy. 2. PEG MEDICATIONS: Pre-hospital and current hospital medications were reviewed, reconciled, and documented in the electronic medical record by dose, frequency, and route. ALLERGIES: She has allergies, documented within the electronic medical record. FAMILY HISTORY: Unavailable. REVIEW OF SYSTEMS: Unavailable. PHYSICAL EXAMINATION: GENERAL: At the time my exam, she is alert. She is nonverbal, but dose nod some yes and no questions. She is in no acute respiratory distress. VITAL SIGNS: She is afebrile. Her pulse is 94, respirations are 20, and blood pressure is 110/64. HEENT: Oropharynx is moist. Nasal mucosa is dry. NECK: Supple without lymphadenopathy. LUNGS: Decreased at the bases. No wheezing present. HEART: Regular rhythm without a murmur. ABDOMEN: Soft and nontender. Positive bowel sounds. EXTREMITIES: No edema. She moves all extremities spontaneously. NEUROLOGIC: She tries to answer some yes and no questions, but does not consistently. Follow commands. LABORATORY AND DIAGNOSTIC DATA: Her laboratory values shows white count 7.5, hemoglobin 9.5, and platelets 562,000. Her sodium is 147, potassium 4.1, chloride 101, bicarbonate 26, BUN 48, creatinine 1.7, and glucose is 103. Her troponin is negative and her chest x-ray with atelectasis in the right and head CT was performed as well, which shows no change to the prior exam. Ventriculostomy demonstrated some change in position. No hydrocephalus. Craniotomy defect is noted. ASSESSMENT: 1. Suspected sepsis. 2. Urinary tract infection. 3. Altered mental status. 4. Renal sufficiency. 5. Hyponatremia. Including other medical problems included in the history of present illness. PLAN: Plan for the patient, IV antibiotics, nebulizer treatments, home medications resumed, NPO on tube feeds, oral care as needed, BiPAP for respiratory distress, and aspiration precautions at all times. Wound care, DVT prophylaxis, and Owens catheter has been placed at this time. We will continue to follow the patient for the remainder of the hospital stay. Racquel Fam D.O. DR: IBAN JOB#: [id number] CC:
[2017-12-14] MEDS ORDERED: Tubing IV Secondary IV ONE (18:25)
[2017-12-14] MEDS ORDERED: NS 275ml ONE (18:25)
[2017-12-14 20:00] VITALS: BP 121/69
[2017-12-15] VITALS: BP 105/60
[2017-12-15 04:00] VITALS: BP 105/59
[2017-12-15] MEDS: D5 1/2NS w/KCl 20mEq 1,000 ML IV SCH (05:24)
[2017-12-15 06:46] LABS: BASOPHILS % (AUTO) 0.9 % (0.0-2.0); EOSINOPHILS % (AUTO) 11.7 % (0.0-3.0); HEMOGLOBIN 8.4 G/DL (12.0-16.0); LYMPHOCYTES % (AUTO) 22.8 % (20.0-45.0); MEAN CORPUSCULAR VOLUME 91 FL (80-99); MONOCYTES % (AUTO) 7.5 % (1.0-10.0); NEUTROPHILS % (AUTO) 57.1 % (45.0-75.0); PLATELET COUNT 348 K/UL (150-450); RED BLOOD COUNT 2.74 M/UL (4.20-5.40); RED CELL DISTRIBUTION WIDTH 15.4 % (11.6-14.8); WHITE BLOOD COUNT 4.3 K/UL (4.8-10.8)
[2017-12-15 06:59] LABS: ANION GAP 8 mmol/L (5-15); BLOOD UREA NITROGEN 37 mg/dL (7-18); CARBON DIOXIDE 24 MMOL/L (21-32); CHLORIDE 112 MMOL/L (98-107); CREATININE 1.3 MG/DL (0.55-1.30); POTASSIUM 4.5 MMOL/L (3.5-5.1); SODIUM 144 MMOL/L (136-145)
[2017-12-15 07:53] VITALS: BP 111/63
--- NOTE | 2017-12-15 08:08 | General Progress Note ---
Assessment/Plan Assessment/Plan #. Anemia of chronic disease -- workup has been reviewed from before and noted to have high ferritin 1500, other labs consistent with ACD --> Cont to monitor, cbc monitoring minimum q2d --> started on folic acid daily --> hgb goal >7, transfuse prn basis --> heparin 5k sq tid as ppx #. 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 She also has a history of a seizure disorder that is undefined. --> appreciate neuro recs from prior admission # Respiratory failure and now s/p takedown --> appreciate pulm recs # Urinary tract infection, and multiple episodes of sepsis. --> s/p abx treatment and seen by ID --> currently completed abx # Hydronephrosis r kidney --> may need stent exchange per uro, appreciate their recs # Dysphagia s/p peg tube --> getting g-tube feeds # Trace right sided pleural effusion # Bioethics/hospice services consulted --> recommended hospice last admission # DVT ppx with heparin sq Subjective Constitutional: Denies: no symptoms, chills, diaphoresis, fever, malaise, weakness, other HEENT: Denies: no symptoms, eye pain, blurred vision, tearing, double vision, ear pain, ear discharge, nose pain, nose congestion, throat pain, throat swelling, mouth pain, mouth swelling, other Cardiovascular: Denies: no symptoms, chest pain, edema, irregular heart rate, lightheadedness, palpitations, syncope, other Respiratory: Denies: no symptoms, cough, orthopnea, shortness of breath, SOB with excertion, SOB at rest, sputum, stridor, wheezing, other Gastrointestinal/Abdominal: Denies: no symptoms, abdomen distended, abdominal pain, black stools, tarry stools, blood in stool, constipated, diarrhea, difficulty swallowing, nausea, poor appetite, poor fluid intake, rectal bleeding , vomiting, other Genitourinary: Denies: no symptoms, burning, discharge, frequency, flank pain, hematuria, incontinence, pain, urgency, other Neurologic/Psychiatric: Denies: no symptoms, anxiety, depressed, emotional problems, headache, numbness, paresthesia, pre-existing deficit, seizure, tingling, tremors, weakness, other Endocrine: Denies: no symptoms, excessive sweating, flushing, intolerance to cold, intolerance to heat, increased hunger, increased thirst, increased urine, unexplained weight gain, unexplained weight loss, other Hematologic/Lymphatic: Denies: no symptoms, anemia, easy bleeding, easy bruising, other Allergies: Coded Allergies: CEFEPIME (Unverified Allergy, Unknown, 11/09/17) Subjective No acute events. H/H stable. Heparin mostly on hold due to hematuria. Objective Last 24 Hour Vital Signs Date Time Temp Pulse Resp B/P (MAP) Pulse Ox O2 Delivery O2 Flow Rate FiO2 12/15/17 07:53 96.8 84 20 111/63 (79) 100 96.8 12/15/17 07:00 Nasal Cannula 2.0 12/15/17 04:00 96.8 73 20 105/59 (74) 100 96.8 12/15/17 00:00 96.9 69 20 105/60 (75) 100 96.9 12/14/17 21:00 Nasal Cannula 2.0 12/14/17 20:00 96.0 81 20 121/69 (86) 99 96.0 12/14/17 16:00 97.7 82 19 96/68 (77) 97 97.7 12/14/17 12:00 97.9 89 17 118/82 (94) 98 97.9 12/14/17 09:00 Nasal Cannula 2.0 Intake and Output 12/14/17 12/15/17 19:00 07:00 Intake Total 1045 ml Output Total 1000 ml 1350 ml Balance 45 ml -1350 ml Intake Free Water 210 ml IV Total 525 ml Tube Feeding 310 ml Output Urine Total 1000 ml 1350 ml # Bowel Movements 2 1 Laboratory Tests 12/14/17 23:00: Vancomycin Level Trough 36.1H 12/15/17 06:10: White Blood Count 4.3L, Red Blood Count 2.74L, Hemoglobin 8.4L, Hematocrit 25.0L , Mean Corpuscular Volume 91, Mean Corpuscular Hemoglobin 30.6, Mean Corpuscular Hemoglobin Concent 33.6, Red Cell Distribution Width 15.4H, Platelet Count 348, Mean Platelet Volume 6.8, Neutrophils (%) (Auto) 57.1, Lymphocytes (%) (Auto) 22.8, Monocytes (%) (Auto) 7.5, Eosinophils (%) (Auto) 11.7H, Basophils (%) (Auto) 0.9, Sodium Level 144, Potassium Level 4.5, Chloride Level 112H, Carbon Dioxide Level 24, Anion Gap 8, Blood Urea Nitrogen 37H, Creatinine 1.3, Estimat Glomerular Filtration Rate 42.7, Glucose Level 121H , Calcium Level 9.0 Height (Feet): 5 Height (Inches): 7.00 Weight (Pounds): 175 General Appearance: no apparent distress EENT: TMs normal Neck: supple Cardiovascular: regular rhythm Respiratory/Chest: lungs clear, respiratory distress Abdomen: non tender Extremities: non-tender Dawit Mcclendon MD Dec 15, 2017 08:08
[2017-12-15] MEDS: Heparin 5000 units/ml inj SUBQ SCH ×2 (08:14→20:25)
[2017-12-15] MEDS: Midodrine 10mg tab GT SCH ×3 (08:14→17:15)
--- NOTE | 2017-12-15 10:44 | GI Progress Note ---
Assessment/Plan Problems: (1) Encephalopathy ICD Codes: G93.40 - Encephalopathy, unspecified SNOMED: 57547662 (2) Anemia ICD Codes: D64.9 - Anemia, unspecified SNOMED: 161294242 (3) Dysphagia ICD Codes: R13.10 - Dysphagia, unspecified SNOMED: 48378103, 541866865 (4) Dehydration, severe ICD Codes: E86.0 - Dehydration SNOMED: 544269500 (5) Electrolyte imbalance ICD Codes: E87.8 - Other disorders of electrolyte and fluid balance, not elsewhere classified SNOMED: 968989709 (6) Dehydration ICD Codes: E86.0 - Dehydration SNOMED: 59907633 Status: stable Status Narrative Discussed with Dr. Chan. Assessment/Plan elevated residuals>>> cont reglan GTFs to goal fu H&H bowel regime ppi prn blood transfusion fu labs The patient was seen and examined at bedside and all new and available data was reviewed in the patients chart. I agree with the above findings, impression and plan. (Patient seen earlier today. Signature stamp does not reflect patient encounter time.). - Laith Chan MD Subjective Subjective limited Objective Last 24 Hour Vital Signs Date Time Temp Pulse Resp B/P (MAP) Pulse Ox O2 Delivery O2 Flow Rate FiO2 12/15/17 07:53 96.8 84 20 111/63 (79) 100 96.8 12/15/17 07:00 Nasal Cannula 2.0 12/15/17 04:00 96.8 73 20 105/59 (74) 100 96.8 12/15/17 00:00 96.9 69 20 105/60 (75) 100 96.9 12/14/17 21:00 Nasal Cannula 2.0 12/14/17 20:00 96.0 81 20 121/69 (86) 99 96.0 12/14/17 16:00 97.7 82 19 96/68 (77) 97 97.7 12/14/17 12:00 97.9 89 17 118/82 (94) 98 97.9 Intake and Output 12/14/17 12/15/17 19:00 07:00 Intake Total 1045 ml 50 ml Output Total 1000 ml 1350 ml Balance 45 ml -1300 ml Intake Free Water 210 ml IV Total 525 ml Tube Feeding 310 ml 50 ml Output Urine Total 1000 ml 1350 ml # Bowel Movements 2 1 Laboratory Tests Test 12/14/17 23:00 12/15/17 06:10 Vancomycin Level Trough 36.1 ug/mL (5.0-12.0) H White Blood Count 4.3 K/UL (4.8-10.8) L Red Blood Count 2.74 M/UL (4.20-5.40) L Hemoglobin 8.4 G/DL (12.0-16.0) L Hematocrit 25.0 % (37.0-47.0) L Mean Corpuscular Volume 91 FL (80-99) Mean Corpuscular Hemoglobin 30.6 PG (27.0-31.0) Mean Corpuscular Hemoglobin Concent 33.6 G/DL (32.0-36.0) Red Cell Distribution Width 15.4 % (11.6-14.8) H Platelet Count 348 K/UL (150-450) Mean Platelet Volume 6.8 FL (6.5-10.1) Neutrophils (%) (Auto) 57.1 % (45.0-75.0) Lymphocytes (%) (Auto) 22.8 % (20.0-45.0) Monocytes (%) (Auto) 7.5 % (1.0-10.0) Eosinophils (%) (Auto) 11.7 % (0.0-3.0) H Basophils (%) (Auto) 0.9 % (0.0-2.0) Sodium Level 144 MMOL/L (136-145) Potassium Level 4.5 MMOL/L (3.5-5.1) Chloride Level 112 MMOL/L (98-107) H Carbon Dioxide Level 24 MMOL/L (21-32) Anion Gap 8 mmol/L (5-15) Blood Urea Nitrogen 37 mg/dL (7-18) H Creatinine 1.3 MG/DL (0.55-1.30) Estimat Glomerular Filtration Rate 42.7 mL/min (>60) Glucose Level 121 MG/DL (74-106) H Calcium Level 9.0 MG/DL (8.5-10.1) Height (Feet): 5 Height (Inches): 7.00 Weight (Pounds): 175 General Appearance: alert Cardiovascular: normal rate Respiratory/Chest: normal breath sounds, no respiratory distress Abdominal Exam: GT site - c/d/i Lubin,Carlee-Matt [employer] T[employer]ER Dec 15, 2017 10:44
[2017-12-15 12:00] VITALS: BP 95/57
--- NOTE | 2017-12-15 12:56 | Pulmonology Progress Note ---
Assessment/Plan Problems: (1) UTI (urinary tract infection) (2) Catheter-associated urinary tract infection (3) Abnormal LFTs (4) Hydronephrosis of right kidney (5) Acute renal failure (ARF) (6) Dehydration with hypernatremia (7) Altered mental state (8) Encephalopathy Assessment/Plan Observe off Abx per ID D/C IVF GTF's Hep SQ F/U senior science consultant recs FC, seen by [facility] last time, will request repeat [facility] evaluation Subjective Allergies: Coded Allergies: CEFEPIME (Unverified Allergy, Unknown, 11/09/17) Subjective YANET, AFVSS, stable on RA, marcus TF's, no distress Objective Last 24 Hour Vital Signs Date Time Temp Pulse Resp B/P (MAP) Pulse Ox O2 Delivery O2 Flow Rate FiO2 12/15/17 07:53 96.8 84 20 111/63 (79) 100 96.8 12/15/17 07:00 Nasal Cannula 2.0 12/15/17 06:48 Nasal Cannula 2.0 28 12/15/17 06:48 98 Nasal Cannula 2.0 28 12/15/17 04:00 96.8 73 20 105/59 (74) 100 96.8 12/15/17 00:00 96.9 69 20 105/60 (75) 100 96.9 12/14/17 21:00 Nasal Cannula 2.0 12/14/17 20:00 96.0 81 20 121/69 (86) 99 96.0 12/14/17 16:00 97.7 82 19 96/68 (77) 97 97.7 Intake and Output 12/14/17 12/15/17 19:00 07:00 Intake Total 1045 ml 50 ml Output Total 1000 ml 1350 ml Balance 45 ml -1300 ml Intake Free Water 210 ml IV Total 525 ml Tube Feeding 310 ml 50 ml Output Urine Total 1000 ml 1350 ml # Bowel Movements 2 1 General Appearance: cachetic HEENT: normocephalic, atraumatic, anicteric, mucous membranes moist Respiratory/Chest: chest wall non-tender, lungs clear, normal breath sounds, no respiratory distress, no accessory muscle use Cardiovascular: normal peripheral pulses, normal rate, regular rhythm Abdomen: normal bowel sounds, soft, non tender, no organomegaly, non distended , no mass, other - SPC and GT Extremities: no cyanosis, no clubbing, no edema, other - contracatures Microbiology Date/Time Source Procedure Growth Status 12/12/17 14:45 Blood Blood Culture - Preliminary NO GROWTH AFTER 48 HOURS Resulted 12/12/17 14:30 Blood Blood Culture - Preliminary NO GROWTH AFTER 48 HOURS Resulted 12/12/17 14:30 Nasal Nares MRSA Culture - Final NO METHICILLIN RESISTANT STAPH AUREUS... Complete 12/13/17 05:00 Indwelling Cath Urine Culture - Preliminary YEAST Resulted 12/12/17 14:30 Urine,Clean Catch Urine Culture - Preliminary YEAST Resulted 12/12/17 14:30 Rectum VRE Culture - Final Enterococcus Faecium - Vre Resulted 12/12/17 14:30 Rectum - Preliminary Resulted Laboratory Tests 12/14/17 23:00: Vancomycin Level Trough 36.1H 12/15/17 06:10: White Blood Count 4.3L, Red Blood Count 2.74L, Hemoglobin 8.4L, Hematocrit 25.0L , Mean Corpuscular Volume 91, Mean Corpuscular Hemoglobin 30.6, Mean Corpuscular Hemoglobin Concent 33.6, Red Cell Distribution Width 15.4H, Platelet Count 348, Mean Platelet Volume 6.8, Neutrophils (%) (Auto) 57.1, Lymphocytes (%) (Auto) 22.8, Monocytes (%) (Auto) 7.5, Eosinophils (%) (Auto) 11.7H, Basophils (%) (Auto) 0.9, Sodium Level 144, Potassium Level 4.5, Chloride Level 112H, Carbon Dioxide Level 24, Anion Gap 8, Blood Urea Nitrogen 37H, Creatinine 1.3, Estimat Glomerular Filtration Rate 42.7, Glucose Level 121H , Calcium Level 9.0 Current Medications Medications (Trade) Dose Ordered Sig/Tay Route PRN Reason Start Time Stop Time Status Last Admin Dose Admin Acetaminophen (Tylenol) 650 mg Q4H PRN ORAL Fever/Headache/Mild Pain 12/13/17 13:30 01/11/18 13:29 12/13/17 17:41 Dextrose (Dextrose 50%) 25 ml Q30M PRN IV Hypoglycemia 12/13/17 13:15 01/11/18 23:14 Dextrose (Dextrose 50%) 50 ml Q30M PRN IV Hypoglycemia 12/13/17 13:15 01/11/18 23:14 Dextrose/ Electrolytes 1,000 ml @ 75 mls/hr [id number] IV 12/13/17 13:15 01/12/18 00:04 12/15/17 05:24 Docusate Sodium (Colace) 200 mg Q8H PRN ORAL Constipation 12/13/17 14:00 01/12/18 13:59 Heparin Sodium (Porcine) (Heparin 5000 units/ml) 5,000 units EVERY 12 HOURS SUBQ 12/13/17 21:00 01/12/18 08:59 12/14/17 08:36 Lansoprazole (Prevacid) 30 mg DAILY GT 12/14/17 09:00 01/12/18 08:59 12/15/17 08:14 Levetiracetam (Keppra) 1,000 mg Q12HR ORAL 12/13/17 21:00 01/12/18 20:59 12/15/17 08:14 Metoclopramide HCl (Reglan) 10 mg Q8H PRN IVP Nausea & Vomiting 12/14/17 08:00 01/13/18 07:59 12/14/17 08:37 Midodrine (Pro-Amatine) 10 mg THREE TIMES A DAY GT 12/13/17 18:00 01/12/18 08:59 12/15/17 08:14 Saccharomyces Boulardii (Florastor) 250 mg TID ORAL 12/13/17 18:00 01/12/18 08:59 12/15/17 08:14 Jose Montalvo MD Dec 15, 2017 12:56
[2017-12-15 16:08] VITALS: BP 108/72
--- NOTE | 2017-12-15 17:12 | Infectious Diseases Prog Note ---
Assessment/Plan Problems: (1) Hypotension Assessment & Plan: not due to sepsis , with negative blood culture , continue hydration. will monitor off antibiotics (2) Catheter-associated urinary tract infection Assessment & Plan: previously due to MDR Providencia stuartii , resolved . repeated urine culture grew small colony of yeast which is contaminant . off meropenem empirically. monitor off antibiotics (3) Pancreatitis, acute Assessment & Plan: rule out gall stone , continue supportive care and hydration , monitor lipase level . (4) Acute renal failure (ARF) Assessment & Plan: continue hydration and blood pressure support , avoid nephrotoxics (5) Hydronephrosis of right kidney Assessment & Plan: suspect due to malfunctioning stent, may need stent removal (6) Abnormal LFTs Assessment & Plan: rule out gall stones , was screened previously for hepatitis , may need US and MRCP (7) Altered mental state Assessment & Plan: due to the above , resolved, head CT was negative for acute pathology . Subjective ROS Limited/Unobtainable: Yes Allergies: Coded Allergies: CEFEPIME (Unverified Allergy, Unknown, 11/09/17) Subjective she was less awake and responsive, resting in bed, not in distress Objective Vital Signs Last 24 Hour Vital Signs Date Time Temp Pulse Resp B/P (MAP) Pulse Ox O2 Delivery O2 Flow Rate FiO2 12/15/17 16:08 97.7 64 20 108/72 (84) 100 97.7 12/15/17 12:00 98.6 60 18 95/57 (70) 100 98.6 12/15/17 07:53 96.8 84 20 111/63 (79) 100 96.8 12/15/17 07:00 Nasal Cannula 2.0 12/15/17 06:48 Nasal Cannula 2.0 28 12/15/17 06:48 98 Nasal Cannula 2.0 28 12/15/17 04:00 96.8 73 20 105/59 (74) 100 96.8 12/15/17 00:00 96.9 69 20 105/60 (75) 100 96.9 12/14/17 21:00 Nasal Cannula 2.0 12/14/17 20:00 96.0 81 20 121/69 (86) 99 96.0 Height (Feet): 5 Height (Inches): 7.00 Weight (Pounds): 175 General Appearance: WD/WN, no acute distress HEENT: normocephalic, atraumatic, anicteric, mucous membranes moist, PERRL, EOMI, pharynx normal, supple, no JVD Respiratory/Chest: chest wall non-tender, normal breath sounds, no respiratory distress, no accessory muscle use, decreased breath sounds Cardiovascular: normal peripheral pulses, normal rate, regular rhythm, no gallop/murmur, no JVD Abdomen: normal bowel sounds, soft, non tender, no organomegaly, non distended , no mass, no scars Genitourinary: normal external genitalia Extremities: no cyanosis, no clubbing Skin: no rash, no lesions, no ulcers Neurologic/Psychiatric: alert, oriented x 3, responsive Lymphatic: no neck adenopathy, no groin adenopathy Musculoskeletal: normal muscle bulk, no effusion Microbiology Date/Time Source Procedure Growth Status 12/13/17 05:00 Indwelling Cath Urine Culture - Preliminary YEAST Resulted Laboratory Tests Test 12/14/17 23:00 12/15/17 06:10 Vancomycin Level Trough 36.1 ug/mL (5.0-12.0) H White Blood Count 4.3 K/UL (4.8-10.8) L Red Blood Count 2.74 M/UL (4.20-5.40) L Hemoglobin 8.4 G/DL (12.0-16.0) L Hematocrit 25.0 % (37.0-47.0) L Mean Corpuscular Volume 91 FL (80-99) Mean Corpuscular Hemoglobin 30.6 PG (27.0-31.0) Mean Corpuscular Hemoglobin Concent 33.6 G/DL (32.0-36.0) Red Cell Distribution Width 15.4 % (11.6-14.8) H Platelet Count 348 K/UL (150-450) Mean Platelet Volume 6.8 FL (6.5-10.1) Neutrophils (%) (Auto) 57.1 % (45.0-75.0) Lymphocytes (%) (Auto) 22.8 % (20.0-45.0) Monocytes (%) (Auto) 7.5 % (1.0-10.0) Eosinophils (%) (Auto) 11.7 % (0.0-3.0) H Basophils (%) (Auto) 0.9 % (0.0-2.0) Sodium Level 144 MMOL/L (136-145) Potassium Level 4.5 MMOL/L (3.5-5.1) Chloride Level 112 MMOL/L (98-107) H Carbon Dioxide Level 24 MMOL/L (21-32) Anion Gap 8 mmol/L (5-15) Blood Urea Nitrogen 37 mg/dL (7-18) H Creatinine 1.3 MG/DL (0.55-1.30) Estimat Glomerular Filtration Rate 42.7 mL/min (>60) Glucose Level 121 MG/DL (74-106) H Calcium Level 9.0 MG/DL (8.5-10.1) Current Medications Medications (Trade) Dose Ordered Sig/Tay Route PRN Reason Start Time Stop Time Status Last Admin Dose Admin Acetaminophen (Tylenol) 650 mg Q4H PRN ORAL Fever/Headache/Mild Pain 12/13/17 13:30 01/11/18 13:29 12/13/17 17:41 Dextrose (Dextrose 50%) 25 ml Q30M PRN IV Hypoglycemia 12/13/17 13:15 01/11/18 23:14 Dextrose (Dextrose 50%) 50 ml Q30M PRN IV Hypoglycemia 12/13/17 13:15 01/11/18 23:14 Docusate Sodium (Colace) 200 mg Q8H PRN ORAL Constipation 12/13/17 14:00 01/12/18 13:59 Heparin Sodium (Porcine) (Heparin 5000 units/ml) 5,000 units EVERY 12 HOURS SUBQ 12/13/17 21:00 01/12/18 08:59 12/14/17 08:36 Lansoprazole (Prevacid) 30 mg DAILY GT 12/14/17 09:00 01/12/18 08:59 12/15/17 08:14 Levetiracetam (Keppra) 1,000 mg Q12HR ORAL 12/13/17 21:00 01/12/18 20:59 12/15/17 08:14 Metoclopramide HCl (Reglan) 10 mg Q8H PRN IVP Nausea & Vomiting 12/14/17 08:00 01/13/18 07:59 12/14/17 08:37 Midodrine (Pro-Amatine) 10 mg THREE TIMES A DAY GT 12/13/17 18:00 01/12/18 08:59 10/15/18 13:16 Saccharomyces Boulardii (Florastor) 250 mg TID ORAL 12/13/17 18:00 01/12/18 08:59 12/15/17 13:16 Kortney Quiñones M.D. Dec 15, 2017 17:12
[2017-12-15 20:00] VITALS: BP 106/68
[2017-12-16] VITALS (7 sets, daily range): BP systolic 108–131; BP diastolic 65–80
[2017-12-16 07:15] LABS: BASOPHILS % (AUTO) 1.3 % (0.0-2.0); EOSINOPHILS % (AUTO) 13.1 % (0.0-3.0); HEMATOCRIT 26.8 % (37.0-47.0); LYMPHOCYTES % (AUTO) 24.5 % (20.0-45.0); MEAN CORPUSCULAR VOLUME 90 FL (80-99); MONOCYTES % (AUTO) 8.1 % (1.0-10.0); NEUTROPHILS % (AUTO) 53.1 % (45.0-75.0); PLATELET COUNT 337 K/UL (150-450); RED BLOOD COUNT 2.99 M/UL (4.20-5.40); RED CELL DISTRIBUTION WIDTH 15.1 % (11.6-14.8); WHITE BLOOD COUNT 4.6 K/UL (4.8-10.8)
[2017-12-16 07:51] LABS: ANION GAP 10 mmol/L (5-15); BLOOD UREA NITROGEN 34 mg/dL (7-18); CALCIUM 9.2 MG/DL (8.5-10.1); CARBON DIOXIDE 22 MMOL/L (21-32); CHLORIDE 113 MMOL/L (98-107); CREATININE 1.1 MG/DL (0.55-1.30); SODIUM 145 MMOL/L (136-145)
[2017-12-16] MEDS: Heparin 5000 units/ml inj SUBQ SCH ×2 (08:28→21:13)
[2017-12-16] MEDS: Midodrine 10mg tab GT SCH ×3 (09:00→18:00)
--- NOTE | 2017-12-16 11:08 | Pulmonology Progress Note ---
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, seen by [facility] last time, awaiting repeat [facility] evaluation Subjective Allergies: Coded Allergies: CEFEPIME (Unverified Allergy, Unknown, 11/09/17) Subjective YANET, AFVSS, stable on RA, marcus TF's, no distress Objective Last 24 Hour Vital Signs Date Time Temp Pulse Resp B/P (MAP) Pulse Ox O2 Delivery O2 Flow Rate FiO2 12/16/17 09:00 Nasal Cannula 2.0 12/16/17 08:23 97.1 84 16 112/74 (87) 99 97.1 12/16/17 04:00 96.1 80 19 110/71 (84) 100 96.1 12/16/17 00:00 96.6 76 19 108/65 (79) 100 96.6 12/15/17 21:00 Nasal Cannula 2.0 12/15/17 20:13 99 Nasal Cannula 2.0 28 12/15/17 20:13 Nasal Cannula 2.0 28 12/15/17 20:00 97.2 69 19 106/68 (81) 100 97.2 12/15/17 16:08 97.7 64 20 108/72 (84) 100 97.7 12/15/17 12:00 98.6 60 18 95/57 (70) 100 98.6 Intake and Output 12/15/17 12/16/17 19:00 07:00 Intake Total 1185 ml 860 ml Output Total 800 ml 1100 ml Balance 385 ml -240 ml Intake Free Water 300 ml 200 ml IV Total 225 ml Tube Feeding 660 ml 660 ml Output Urine Total 800 ml 1100 ml # Bowel Movements 1 General Appearance: no acute distress, cachetic HEENT: normocephalic, atraumatic, anicteric, mucous membranes moist Respiratory/Chest: chest wall non-tender, lungs clear, normal breath sounds, no respiratory distress Cardiovascular: normal peripheral pulses, normal rate, regular rhythm Abdomen: normal bowel sounds, soft, non tender, no organomegaly, non distended , no mass, other - SPC and GT Extremities: no cyanosis, no clubbing, no edema, other - contracted Laboratory Tests 12/16/17 06:20: White Blood Count 4.6L, Red Blood Count 2.99L, Hemoglobin 9.0L, Hematocrit 26.8L , Mean Corpuscular Volume 90, Mean Corpuscular Hemoglobin 30.3, Mean Corpuscular Hemoglobin Concent 33.8, Red Cell Distribution Width 15.1H, Platelet Count 337, Mean Platelet Volume 7.3, Neutrophils (%) (Auto) 53.1, Lymphocytes (%) (Auto) 24.5, Monocytes (%) (Auto) 8.1, Eosinophils (%) (Auto) 13.1H, Basophils (%) (Auto) 1.3, Sodium Level 145, Potassium Level 5.0, Chloride Level 113H, Carbon Dioxide Level 22, Anion Gap 10, Blood Urea Nitrogen 34H, Creatinine 1.1, Estimat Glomerular Filtration Rate 51.8, Glucose Level 108H , Calcium Level 9.2 Current Medications Medications (Trade) Dose Ordered Sig/Tay Route PRN Reason Start Time Stop Time Status Last Admin Dose Admin Acetaminophen (Tylenol) 650 mg Q4H PRN ORAL Fever/Headache/Mild Pain 12/13/17 13:30 01/11/18 13:29 12/13/17 17:41 Dextrose (Dextrose 50%) 25 ml Q30M PRN IV Hypoglycemia 12/13/17 13:15 01/11/18 23:14 Dextrose (Dextrose 50%) 50 ml Q30M PRN IV Hypoglycemia 12/13/17 13:15 01/11/18 23:14 Docusate Sodium (Colace) 200 mg Q8H PRN ORAL Constipation 12/13/17 14:00 01/12/18 13:59 Heparin Sodium (Porcine) (Heparin 5000 units/ml) 5,000 units EVERY 12 HOURS SUBQ 12/13/17 21:00 01/12/18 08:59 12/16/17 08:28 Lansoprazole (Prevacid) 30 mg DAILY GT 12/14/17 09:00 01/12/18 08:59 12/16/17 08:26 Levetiracetam (Keppra) 1,000 mg Q12HR ORAL 12/13/17 21:00 01/12/18 20:59 12/16/17 08:27 Metoclopramide HCl (Reglan) 10 mg Q8H PRN IVP Nausea & Vomiting 12/14/17 08:00 01/13/18 07:59 12/14/17 08:37 Midodrine (Pro-Amatine) 10 mg THREE TIMES A DAY GT 12/13/17 18:00 01/12/18 08:59 12/15/17 17:15 Saccharomyces Boulardii (Florastor) 250 mg TID ORAL 12/13/17 18:00 01/12/18 08:59 12/16/17 08:26 Jose Montalvo MD Dec 16, 2017 11:08
--- NOTE | 2017-12-16 13:34 | GI Progress Note ---
Assessment/Plan Problems: (1) Encephalopathy ICD Codes: G93.40 - Encephalopathy, unspecified SNOMED: 39747506 (2) Anemia ICD Codes: D64.9 - Anemia, unspecified SNOMED: 485003136 (3) Dysphagia ICD Codes: R13.10 - Dysphagia, unspecified SNOMED: 93975998, 875656763 (4) Dehydration, severe ICD Codes: E86.0 - Dehydration SNOMED: 655167760 (5) Electrolyte imbalance ICD Codes: E87.8 - Other disorders of electrolyte and fluid balance, not elsewhere classified SNOMED: 833778913 (6) Dehydration ICD Codes: E86.0 - Dehydration SNOMED: 16760356 Status: stable Status Narrative Discussed with Dr. Chan. Assessment/Plan okay for DC per GI standpoint elevated residuals>>> cont reglan GTFs to goal fu H&H bowel regime ppi prn blood transfusion fu labs The patient was seen and examined at bedside and all new and available data was reviewed in the patients chart. I agree with the above findings, impression and plan. (Patient seen earlier today. Signature stamp does not reflect patient encounter time.). - Laith Chan MD Subjective Subjective limited Objective Last 24 Hour Vital Signs Date Time Temp Pulse Resp B/P (MAP) Pulse Ox O2 Delivery O2 Flow Rate FiO2 12/16/17 13:14 83 131/77 (95) 12/16/17 11:57 97.1 84 17 117/76 (90) 100 97.1 12/16/17 09:00 Nasal Cannula 2.0 12/16/17 08:23 97.1 84 16 112/74 (87) 99 97.1 12/16/17 04:00 96.1 80 19 110/71 (84) 100 96.1 12/16/17 00:00 96.6 76 19 108/65 (79) 100 96.6 12/15/17 21:00 Nasal Cannula 2.0 12/15/17 20:13 99 Nasal Cannula 2.0 28 12/15/17 20:13 Nasal Cannula 2.0 28 12/15/17 20:00 97.2 69 19 106/68 (81) 100 97.2 12/15/17 16:08 97.7 64 20 108/72 (84) 100 97.7 Intake and Output 12/15/17 12/16/17 19:00 07:00 Intake Total 1185 ml 860 ml Output Total 800 ml 1100 ml Balance 385 ml -240 ml Intake Free Water 300 ml 200 ml IV Total 225 ml Tube Feeding 660 ml 660 ml Output Urine Total 800 ml 1100 ml # Bowel Movements 1 Laboratory Tests Test 12/16/17 06:20 White Blood Count 4.6 K/UL (4.8-10.8) L Red Blood Count 2.99 M/UL (4.20-5.40) L Hemoglobin 9.0 G/DL (12.0-16.0) L Hematocrit 26.8 % (37.0-47.0) L Mean Corpuscular Volume 90 FL (80-99) Mean Corpuscular Hemoglobin 30.3 PG (27.0-31.0) Mean Corpuscular Hemoglobin Concent 33.8 G/DL (32.0-36.0) Red Cell Distribution Width 15.1 % (11.6-14.8) H Platelet Count 337 K/UL (150-450) Mean Platelet Volume 7.3 FL (6.5-10.1) Neutrophils (%) (Auto) 53.1 % (45.0-75.0) Lymphocytes (%) (Auto) 24.5 % (20.0-45.0) Monocytes (%) (Auto) 8.1 % (1.0-10.0) Eosinophils (%) (Auto) 13.1 % (0.0-3.0) H Basophils (%) (Auto) 1.3 % (0.0-2.0) Sodium Level 145 MMOL/L (136-145) Potassium Level 5.0 MMOL/L (3.5-5.1) Chloride Level 113 MMOL/L (98-107) H Carbon Dioxide Level 22 MMOL/L (21-32) Anion Gap 10 mmol/L (5-15) Blood Urea Nitrogen 34 mg/dL (7-18) H Creatinine 1.1 MG/DL (0.55-1.30) Estimat Glomerular Filtration Rate 51.8 mL/min (>60) Glucose Level 108 MG/DL (74-106) H Calcium Level 9.2 MG/DL (8.5-10.1) Height (Feet): 5 Height (Inches): 7.00 Weight (Pounds): 175 General Appearance: WD/WN, no apparent distress, alert Cardiovascular: normal rate Respiratory/Chest: normal breath sounds, no respiratory distress Abdominal Exam: normal bowel sounds, non tender, soft, GT site - c/d/i Extremities: non-tender Olivia Lubin NP Dec 16, 2017 13:34
--- NOTE | 2017-12-16 16:40 | Infectious Diseases Prog Note ---
Assessment/Plan Problems: (1) Hypotension Assessment & Plan: not due to sepsis , with negative blood culture , continue hydration. will monitor off antibiotics (2) Catheter-associated urinary tract infection Assessment & Plan: previously due to MDR Providencia stuartii , resolved . repeated urine culture grew small colony of yeast which is contaminant . off meropenem empirically. monitor off antibiotics (3) Pancreatitis, acute Assessment & Plan: rule out gall stone , continue supportive care and hydration , monitor lipase level . (4) Acute renal failure (ARF) Assessment & Plan: continue hydration and blood pressure support , avoid nephrotoxics (5) Hydronephrosis of right kidney Assessment & Plan: suspect due to malfunctioning stent, may need stent removal (6) Abnormal LFTs Assessment & Plan: rule out gall stones , was screened previously for hepatitis , may need US and MRCP (7) Altered mental state Assessment & Plan: due to the above , resolved, head CT was negative for acute pathology . Subjective ROS Limited/Unobtainable: Yes Allergies: Coded Allergies: CEFEPIME (Unverified Allergy, Unknown, 11/09/17) Subjective she was less awake and responsive, resting in bed, not in distress Objective Vital Signs Last 24 Hour Vital Signs Date Time Temp Pulse Resp B/P (MAP) Pulse Ox O2 Delivery O2 Flow Rate FiO2 12/16/17 15:55 97.5 92 20 118/80 (93) 100 97.5 12/16/17 13:14 83 131/77 (95) 12/16/17 11:57 97.1 84 17 117/76 (90) 100 97.1 12/16/17 09:00 Nasal Cannula 2.0 12/16/17 08:23 97.1 84 16 112/74 (87) 99 97.1 12/16/17 04:00 96.1 80 19 110/71 (84) 100 96.1 12/16/17 00:00 96.6 76 19 108/65 (79) 100 96.6 12/15/17 21:00 Nasal Cannula 2.0 12/15/17 20:13 99 Nasal Cannula 2.0 28 12/15/17 20:13 Nasal Cannula 2.0 28 12/15/17 20:00 97.2 69 19 106/68 (81) 100 97.2 Height (Feet): 5 Height (Inches): 7.00 Weight (Pounds): 175 General Appearance: WD/WN, no acute distress HEENT: normocephalic, atraumatic, anicteric, mucous membranes moist Respiratory/Chest: chest wall non-tender, lungs clear, normal breath sounds, no respiratory distress, no accessory muscle use Cardiovascular: normal peripheral pulses, normal rate, regular rhythm, no gallop/murmur, no JVD Abdomen: normal bowel sounds, soft, non tender, no organomegaly, non distended , no mass, no scars Extremities: no cyanosis, no clubbing Skin: no rash, no lesions, no ulcers Neurologic/Psychiatric: alert, responsive Lymphatic: no neck adenopathy, no groin adenopathy Musculoskeletal: normal muscle bulk, no effusion Laboratory Tests Test 12/16/17 06:20 White Blood Count 4.6 K/UL (4.8-10.8) L Red Blood Count 2.99 M/UL (4.20-5.40) L Hemoglobin 9.0 G/DL (12.0-16.0) L Hematocrit 26.8 % (37.0-47.0) L Mean Corpuscular Volume 90 FL (80-99) Mean Corpuscular Hemoglobin 30.3 PG (27.0-31.0) Mean Corpuscular Hemoglobin Concent 33.8 G/DL (32.0-36.0) Red Cell Distribution Width 15.1 % (11.6-14.8) H Platelet Count 337 K/UL (150-450) Mean Platelet Volume 7.3 FL (6.5-10.1) Neutrophils (%) (Auto) 53.1 % (45.0-75.0) Lymphocytes (%) (Auto) 24.5 % (20.0-45.0) Monocytes (%) (Auto) 8.1 % (1.0-10.0) Eosinophils (%) (Auto) 13.1 % (0.0-3.0) H Basophils (%) (Auto) 1.3 % (0.0-2.0) Sodium Level 145 MMOL/L (136-145) Potassium Level 5.0 MMOL/L (3.5-5.1) Chloride Level 113 MMOL/L (98-107) H Carbon Dioxide Level 22 MMOL/L (21-32) Anion Gap 10 mmol/L (5-15) Blood Urea Nitrogen 34 mg/dL (7-18) H Creatinine 1.1 MG/DL (0.55-1.30) Estimat Glomerular Filtration Rate 51.8 mL/min (>60) Glucose Level 108 MG/DL (74-106) H Calcium Level 9.2 MG/DL (8.5-10.1) Current Medications Medications (Trade) Dose Ordered Sig/Tay Route PRN Reason Start Time Stop Time Status Last Admin Dose Admin Acetaminophen (Tylenol) 650 mg Q4H PRN ORAL Fever/Headache/Mild Pain 12/13/17 13:30 01/11/18 13:29 12/13/17 17:41 Dextrose (Dextrose 50%) 25 ml Q30M PRN IV Hypoglycemia 12/13/17 13:15 01/11/18 23:14 Dextrose (Dextrose 50%) 50 ml Q30M PRN IV Hypoglycemia 12/13/17 13:15 01/11/18 23:14 Docusate Sodium (Colace) 200 mg Q8H PRN ORAL Constipation 12/13/17 14:00 01/12/18 13:59 Heparin Sodium (Porcine) (Heparin 5000 units/ml) 5,000 units EVERY 12 HOURS SUBQ 12/13/17 21:00 01/12/18 08:59 12/16/17 08:28 Lansoprazole (Prevacid) 30 mg DAILY GT 12/14/17 09:00 01/12/18 08:59 12/16/17 08:26 Levetiracetam (Keppra) 1,000 mg Q12HR ORAL 12/13/17 21:00 01/12/18 20:59 12/16/17 08:27 Metoclopramide HCl (Reglan) 10 mg Q8H PRN IVP Nausea & Vomiting 12/14/17 08:00 01/13/18 07:59 12/14/17 08:37 Midodrine (Pro-Amatine) 10 mg THREE TIMES A DAY GT 12/13/17 18:00 01/12/18 08:59 12/15/17 17:15 Saccharomyces Boulardii (Florastor) 250 mg TID ORAL 12/13/17 18:00 01/12/18 08:59 12/16/17 13:13 Kortney Quiñones M.D. Dec 16, 2017 16:40
--- NOTE | 2017-12-16 17:31 | General Progress Note ---
Assessment/Plan Status: stable Assessment/Plan #. Anemia of chronic disease -- workup has been reviewed from before and noted to have high ferritin 1500, other labs consistent with ACD --> Cont to monitor, cbc monitoring minimum q2d --> started on folic acid daily --> hgb goal >7, transfuse prn basis --> heparin 5k sq tid as ppx #. 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 She also has a history of a seizure disorder that is undefined. --> appreciate neuro recs from prior admission # Respiratory failure and now s/p takedown --> appreciate pulm recs # Urinary tract infection, and multiple episodes of sepsis. --> s/p abx treatment and seen by ID --> currently completed abx # Hydronephrosis R kidney --> may need stent exchange per uro, appreciate their recs # Dysphagia s/p peg tube --> getting g-tube feeds # Trace right sided pleural effusion # Bioethics/hospice services consulted --> recommended hospice last admission # DVT ppx with heparin sq Subjective Date patient seen: Dec 16, 2017 Hematologic/Lymphatic: Reports: anemia Allergies: Coded Allergies: CEFEPIME (Unverified Allergy, Unknown, 11/09/17) All Systems: reviewed and negative except above Subjective No acute events. H/H stable. Remains in TF. Objective Last 24 Hour Vital Signs Date Time Temp Pulse Resp B/P (MAP) Pulse Ox O2 Delivery O2 Flow Rate FiO2 12/16/17 15:55 97.5 92 20 118/80 (93) 100 97.5 12/16/17 13:14 83 131/77 (95) 12/16/17 11:57 97.1 84 17 117/76 (90) 100 97.1 12/16/17 09:00 Nasal Cannula 2.0 12/16/17 08:23 97.1 84 16 112/74 (87) 99 97.1 12/16/17 04:00 96.1 80 19 110/71 (84) 100 96.1 12/16/17 00:00 96.6 76 19 108/65 (79) 100 96.6 12/15/17 21:00 Nasal Cannula 2.0 12/15/17 20:13 99 Nasal Cannula 2.0 28 12/15/17 20:13 Nasal Cannula 2.0 28 12/15/17 20:00 97.2 69 19 106/68 (81) 100 97.2 Intake and Output 12/15/17 12/16/17 19:00 07:00 Intake Total 1185 ml 860 ml Output Total 800 ml 1100 ml Balance 385 ml -240 ml Intake Free Water 300 ml 200 ml IV Total 225 ml Tube Feeding 660 ml 660 ml Output Urine Total 800 ml 1100 ml # Bowel Movements 1 Laboratory Tests 12/16/17 06:20: White Blood Count 4.6L, Red Blood Count 2.99L, Hemoglobin 9.0L, Hematocrit 26.8L , Mean Corpuscular Volume 90, Mean Corpuscular Hemoglobin 30.3, Mean Corpuscular Hemoglobin Concent 33.8, Red Cell Distribution Width 15.1H, Platelet Count 337, Mean Platelet Volume 7.3, Neutrophils (%) (Auto) 53.1, Lymphocytes (%) (Auto) 24.5, Monocytes (%) (Auto) 8.1, Eosinophils (%) (Auto) 13.1H, Basophils (%) (Auto) 1.3, Sodium Level 145, Potassium Level 5.0, Chloride Level 113H, Carbon Dioxide Level 22, Anion Gap 10, Blood Urea Nitrogen 34H, Creatinine 1.1, Estimat Glomerular Filtration Rate 51.8, Glucose Level 108H , Calcium Level 9.2 Height (Feet): 5 Height (Inches): 7.00 Weight (Pounds): 175 General Appearance: no apparent distress EENT: PERRL/EOMI Neck: normal alignment Cardiovascular: normal peripheral pulses Respiratory/Chest: no respiratory distress Abdomen: soft Dawit Mcclendon MD Dec 16, 2017 17:31
[2017-12-17] VITALS: BP 136/87
[2017-12-17 04:00] VITALS: BP 125/87
[2017-12-17 07:43] LABS: ANION GAP 9 mmol/L (5-15); BASOPHILS % (AUTO) 1.1 % (0.0-2.0); BLOOD UREA NITROGEN 33 mg/dL (7-18); CALCIUM 9.5 MG/DL (8.5-10.1); CARBON DIOXIDE 24 MMOL/L (21-32); CHLORIDE 113 MMOL/L (98-107); CREATININE 1.2 MG/DL (0.55-1.30); EOSINOPHILS % (AUTO) 11.6 % (0.0-3.0); HEMATOCRIT 28.5 % (37.0-47.0); HEMOGLOBIN 9.4 G/DL (12.0-16.0); LYMPHOCYTES % (AUTO) 28.1 % (20.0-45.0); MEAN CORPUSCULAR VOLUME 91 FL (80-99); MONOCYTES % (AUTO) 6.6 % (1.0-10.0); NEUTROPHILS % (AUTO) 52.5 % (45.0-75.0); PLATELET COUNT 392 K/UL (150-450); POTASSIUM 5.6 MMOL/L (3.5-5.1); RED BLOOD COUNT 3.12 M/UL (4.20-5.40); RED CELL DISTRIBUTION WIDTH 15.6 % (11.6-14.8); SODIUM 146 MMOL/L (136-145); WHITE BLOOD COUNT 6.9 K/UL (4.8-10.8)
[2017-12-17 08:00] VITALS: BP 116/57
[2017-12-17] MEDS: Heparin 5000 units/ml inj SUBQ SCH (08:37)
[2017-12-17] MEDS: Midodrine 10mg tab GT SCH ×2 (09:00→13:00)
--- NOTE | 2017-12-17 11:27 | Pulmonology Progress Note ---
Assessment/Plan Problems: (1) UTI (urinary tract infection) (2) Catheter-associated urinary tract infection (3) Abnormal LFTs (4) Hydronephrosis of right kidney (5) Acute renal failure (ARF) (6) Dehydration with hypernatremia (7) Altered mental state (8) Encephalopathy Assessment/Plan Appreciate SW and palliative care efforts Daughter has agreed to transition to hospice Plan to D/C back to SNF POLST updated D/C lab draws Observe off Abx per ID SLIV GTF's Hep SQ DNAR/DNI Subjective Allergies: Coded Allergies: CEFEPIME (Unverified Allergy, Unknown, 11/09/17) Subjective Daughter has agreed to hospice, AFVSS, stable on RA, marcus TF's, no distress Objective Last 24 Hour Vital Signs Date Time Temp Pulse Resp B/P (MAP) Pulse Ox O2 Delivery O2 Flow Rate FiO2 12/17/17 09:00 Nasal Cannula 2.0 12/17/17 08:00 96.6 106 17 116/57 (76) 99 96.6 12/17/17 04:00 97.5 111 18 125/87 (100) 97 97.5 12/17/17 00:00 97.1 116 18 136/87 (103) 96 97.1 12/16/17 21:00 Nasal Cannula 2.0 12/16/17 20:00 97.1 110 18 120/80 (93) 97 97.1 12/16/17 19:16 Nasal Cannula 2.0 28 12/16/17 19:16 100 Nasal Cannula 2.0 28 12/16/17 15:55 97.5 92 20 118/80 (93) 100 97.5 12/16/17 13:14 83 131/77 (95) 12/16/17 11:57 97.1 84 17 117/76 (90) 100 97.1 Intake and Output 12/16/17 12/17/17 19:00 07:00 Intake Total 910 ml 1020 ml Output Total 800 ml Balance 110 ml 1020 ml Intake Free Water 250 ml 300 ml Tube Feeding 660 ml 720 ml Output Urine Total 800 ml General Appearance: cachetic HEENT: normocephalic, atraumatic, anicteric, mucous membranes moist Respiratory/Chest: chest wall non-tender, lungs clear, normal breath sounds, no respiratory distress Cardiovascular: normal peripheral pulses, normal rate, regular rhythm Abdomen: normal bowel sounds, soft, non tender, no organomegaly, non distended , no mass, other - GT and SPC Extremities: no cyanosis, no clubbing, other Laboratory Tests 12/17/17 06:40: White Blood Count 6.9, Red Blood Count 3.12L, Hemoglobin 9.4L, Hematocrit 28.5L , Mean Corpuscular Volume 91, Mean Corpuscular Hemoglobin 30.1, Mean Corpuscular Hemoglobin Concent 32.9, Red Cell Distribution Width 15.6H, Platelet Count 392, Mean Platelet Volume 7.0, Neutrophils (%) (Auto) 52.5, Lymphocytes (%) (Auto) 28.1, Monocytes (%) (Auto) 6.6, Eosinophils (%) (Auto) 11.6H, Basophils (%) (Auto) 1.1, Sodium Level 146H, Potassium Level 5.6H, Chloride Level 113H, Carbon Dioxide Level 24, Anion Gap 9, Blood Urea Nitrogen 33H, Creatinine 1.2, Estimat Glomerular Filtration Rate 46.8, Glucose Level 84, Calcium Level 9.5 Current Medications Medications (Trade) Dose Ordered Sig/Tay Route PRN Reason Start Time Stop Time Status Last Admin Dose Admin Acetaminophen (Tylenol) 650 mg Q4H PRN ORAL Fever/Headache/Mild Pain 12/13/17 13:30 01/11/18 13:29 12/17/17 01:00 Dextrose (Dextrose 50%) 25 ml Q30M PRN IV Hypoglycemia 12/13/17 13:15 01/11/18 23:14 Dextrose (Dextrose 50%) 50 ml Q30M PRN IV Hypoglycemia 12/13/17 13:15 01/11/18 23:14 Docusate Sodium (Colace) 200 mg Q8H PRN ORAL Constipation 12/13/17 14:00 01/12/18 13:59 Heparin Sodium (Porcine) (Heparin 5000 units/ml) 5,000 units EVERY 12 HOURS SUBQ 12/13/17 21:00 01/12/18 08:59 12/17/17 08:37 Lansoprazole (Prevacid) 30 mg DAILY GT 12/14/17 09:00 01/12/18 08:59 12/17/17 08:36 Levetiracetam (Keppra) 1,000 mg Q12HR ORAL 12/13/17 21:00 01/12/18 20:59 12/17/17 08:36 Metoclopramide HCl (Reglan) 10 mg Q8H PRN IVP Nausea & Vomiting 12/14/17 08:00 01/13/18 07:59 12/14/17 08:37 Midodrine (Pro-Amatine) 10 mg THREE TIMES A DAY GT 12/13/17 18:00 01/12/18 08:59 12/15/17 17:15 Saccharomyces Boulardii (Florastor) 250 mg TID ORAL 12/13/17 18:00 01/12/18 08:59 12/17/17 08:36 Jose Montalvo MD Dec 17, 2017 11:27
[2017-12-17] MEDS ORDERED: Sterile Water For Inj 1000ml IV ONE (11:40)
--- NOTE | 2017-12-17 11:52 | GI Progress Note ---
Assessment/Plan Problems: (1) Encephalopathy ICD Codes: G93.40 - Encephalopathy, unspecified SNOMED: 76849836 (2) Anemia ICD Codes: D64.9 - Anemia, unspecified SNOMED: 328125705 (3) Dysphagia ICD Codes: R13.10 - Dysphagia, unspecified SNOMED: 46677154, 329602374 (4) Dehydration, severe ICD Codes: E86.0 - Dehydration SNOMED: 939771753 (5) Electrolyte imbalance ICD Codes: E87.8 - Other disorders of electrolyte and fluid balance, not elsewhere classified SNOMED: 797105967 (6) Dehydration ICD Codes: E86.0 - Dehydration SNOMED: 11683603 Status: stable, unchanged Status Narrative Discussed with Dr. Chan. Assessment/Plan okay for DC per GI standpoint elevated residuals>>> cont reglan GTFs to goal fu H&H bowel regime ppi prn blood transfusion fu labs The patient was seen and examined at bedside and all new and available data was reviewed in the patients chart. I agree with the above findings, impression and plan. (Patient seen earlier today. Signature stamp does not reflect patient encounter time.). - Laith Chan MD Subjective Subjective limited Objective Last 24 Hour Vital Signs Date Time Temp Pulse Resp B/P (MAP) Pulse Ox O2 Delivery O2 Flow Rate FiO2 12/17/17 09:00 Nasal Cannula 2.0 12/17/17 08:00 96.6 106 17 116/57 (76) 99 96.6 12/17/17 04:00 97.5 111 18 125/87 (100) 97 97.5 12/17/17 00:00 97.1 116 18 136/87 (103) 96 97.1 12/16/17 21:00 Nasal Cannula 2.0 12/16/17 20:00 97.1 110 18 120/80 (93) 97 97.1 12/16/17 19:16 Nasal Cannula 2.0 28 12/16/17 19:16 100 Nasal Cannula 2.0 28 12/16/17 15:55 97.5 92 20 118/80 (93) 100 97.5 12/16/17 13:14 83 131/77 (95) 12/16/17 11:57 97.1 84 17 117/76 (90) 100 97.1 Intake and Output 12/16/17 12/17/17 19:00 07:00 Intake Total 910 ml 1020 ml Output Total 800 ml Balance 110 ml 1020 ml Intake Free Water 250 ml 300 ml Tube Feeding 660 ml 720 ml Output Urine Total 800 ml Laboratory Tests Test 12/17/17 06:40 White Blood Count 6.9 K/UL (4.8-10.8) Red Blood Count 3.12 M/UL (4.20-5.40) L Hemoglobin 9.4 G/DL (12.0-16.0) L Hematocrit 28.5 % (37.0-47.0) L Mean Corpuscular Volume 91 FL (80-99) Mean Corpuscular Hemoglobin 30.1 PG (27.0-31.0) Mean Corpuscular Hemoglobin Concent 32.9 G/DL (32.0-36.0) Red Cell Distribution Width 15.6 % (11.6-14.8) H Platelet Count 392 K/UL (150-450) Mean Platelet Volume 7.0 FL (6.5-10.1) Neutrophils (%) (Auto) 52.5 % (45.0-75.0) Lymphocytes (%) (Auto) 28.1 % (20.0-45.0) Monocytes (%) (Auto) 6.6 % (1.0-10.0) Eosinophils (%) (Auto) 11.6 % (0.0-3.0) H Basophils (%) (Auto) 1.1 % (0.0-2.0) Sodium Level 146 MMOL/L (136-145) H Potassium Level 5.6 MMOL/L (3.5-5.1) H Chloride Level 113 MMOL/L (98-107) H Carbon Dioxide Level 24 MMOL/L (21-32) Anion Gap 9 mmol/L (5-15) Blood Urea Nitrogen 33 mg/dL (7-18) H Creatinine 1.2 MG/DL (0.55-1.30) Estimat Glomerular Filtration Rate 46.8 mL/min (>60) Glucose Level 84 MG/DL (74-106) Calcium Level 9.5 MG/DL (8.5-10.1) Height (Feet): 5 Height (Inches): 7.00 Weight (Pounds): 146 General Appearance: WD/WN, no apparent distress, alert Cardiovascular: normal rate Respiratory/Chest: normal breath sounds, no respiratory distress Abdominal Exam: normal bowel sounds, non tender, soft Extremities: normal range of motion, non-tender Olivia Lubin NP Dec 17, 2017 11:52
[2017-12-17 12:00] VITALS: BP 117/61
--- NOTE | 2017-12-17 14:48 | Infectious Diseases Prog Note ---
Assessment/Plan Problems: (1) Hypotension Assessment & Plan: resolved, not due to sepsis , with negative blood culture , continue hydration. will monitor off antibiotics for now (2) Catheter-associated urinary tract infection Assessment & Plan: previously due to MDR Providencia stuartii , resolved . repeated urine culture grew small colony of yeast which is contaminant . off meropenem empirically. monitor off antibiotics (3) Pancreatitis, acute Assessment & Plan: rule out gall stone , continue supportive care and hydration , monitor lipase level . (4) Acute renal failure (ARF) Assessment & Plan: continue hydration and blood pressure support , avoid nephrotoxics (5) Hydronephrosis of right kidney Assessment & Plan: suspect due to malfunctioning stent, may need stent removal (6) Abnormal LFTs Assessment & Plan: rule out gall stones , was screened previously for hepatitis , may need US and MRCP (7) Altered mental state Assessment & Plan: due to the above , resolved, head CT was negative for acute pathology . Subjective Constitutional: Reports: no symptoms HEENT: Reports: no symptoms Respiratory: Reports: no symptoms Breasts: Reports: no symptoms Cardiovascular: Reports: no symptoms Gastrointestinal/Abdominal: Reports: no symptoms Genitourinary: Reports: no symptoms Neurologic: Reports: no symptoms Psychiatric: Reports: no symptoms Skin: Reports: no symptoms Endocrine: Reports: no symptoms Hematologic: Reports: no symptoms Musculoskeletal: Reports: no symptoms Allergies: Coded Allergies: CEFEPIME (Unverified Allergy, Unknown, 11/09/17) Subjective she was awake and responsive, resting in bed, comfortable, not in distress Objective Vital Signs Last 24 Hour Vital Signs Date Time Temp Pulse Resp B/P (MAP) Pulse Ox O2 Delivery O2 Flow Rate FiO2 12/17/17 12:00 98.1 98 17 117/61 (79) 98 98.1 12/17/17 09:00 Nasal Cannula 2.0 12/17/17 08:00 96.6 106 17 116/57 (76) 99 96.6 12/17/17 04:00 97.5 111 18 125/87 (100) 97 97.5 12/17/17 00:00 97.1 116 18 136/87 (103) 96 97.1 12/16/17 21:00 Nasal Cannula 2.0 12/16/17 20:00 97.1 110 18 120/80 (93) 97 97.1 12/16/17 19:16 Nasal Cannula 2.0 28 12/16/17 19:16 100 Nasal Cannula 2.0 28 12/16/17 15:55 97.5 92 20 118/80 (93) 100 97.5 Height (Feet): 5 Height (Inches): 7.00 Weight (Pounds): 146 General Appearance: WD/WN, no acute distress HEENT: normocephalic, atraumatic, anicteric, mucous membranes moist, PERRL Respiratory/Chest: chest wall non-tender, lungs clear, normal breath sounds, no respiratory distress, no accessory muscle use Cardiovascular: normal peripheral pulses, normal rate, regular rhythm, no gallop/murmur, no JVD Abdomen: normal bowel sounds, soft, non tender, no organomegaly, non distended , no mass, no scars Extremities: no cyanosis, no clubbing Skin: no rash, no lesions, no ulcers Neurologic/Psychiatric: alert, responsive Lymphatic: no neck adenopathy, no groin adenopathy Musculoskeletal: normal muscle bulk, no effusion Laboratory Tests Test 12/17/17 06:40 White Blood Count 6.9 K/UL (4.8-10.8) Red Blood Count 3.12 M/UL (4.20-5.40) L Hemoglobin 9.4 G/DL (12.0-16.0) L Hematocrit 28.5 % (37.0-47.0) L Mean Corpuscular Volume 91 FL (80-99) Mean Corpuscular Hemoglobin 30.1 PG (27.0-31.0) Mean Corpuscular Hemoglobin Concent 32.9 G/DL (32.0-36.0) Red Cell Distribution Width 15.6 % (11.6-14.8) H Platelet Count 392 K/UL (150-450) Mean Platelet Volume 7.0 FL (6.5-10.1) Neutrophils (%) (Auto) 52.5 % (45.0-75.0) Lymphocytes (%) (Auto) 28.1 % (20.0-45.0) Monocytes (%) (Auto) 6.6 % (1.0-10.0) Eosinophils (%) (Auto) 11.6 % (0.0-3.0) H Basophils (%) (Auto) 1.1 % (0.0-2.0) Sodium Level 146 MMOL/L (136-145) H Potassium Level 5.6 MMOL/L (3.5-5.1) H Chloride Level 113 MMOL/L (98-107) H Carbon Dioxide Level 24 MMOL/L (21-32) Anion Gap 9 mmol/L (5-15) Blood Urea Nitrogen 33 mg/dL (7-18) H Creatinine 1.2 MG/DL (0.55-1.30) Estimat Glomerular Filtration Rate 46.8 mL/min (>60) Glucose Level 84 MG/DL (74-106) Calcium Level 9.5 MG/DL (8.5-10.1) Current Medications Medications (Trade) Dose Ordered Sig/Tay Route PRN Reason Start Time Stop Time Status Last Admin Dose Admin Acetaminophen (Tylenol) 650 mg Q4H PRN ORAL Fever/Headache/Mild Pain 12/13/17 13:30 01/11/18 13:29 12/17/17 01:00 Dextrose (Dextrose 50%) 25 ml Q30M PRN IV Hypoglycemia 12/13/17 13:15 01/11/18 23:14 Dextrose (Dextrose 50%) 50 ml Q30M PRN IV Hypoglycemia 12/13/17 13:15 01/11/18 23:14 Docusate Sodium (Colace) 200 mg Q8H PRN ORAL Constipation 12/13/17 14:00 01/12/18 13:59 Heparin Sodium (Porcine) (Heparin 5000 units/ml) 5,000 units EVERY 12 HOURS SUBQ 12/13/17 21:00 01/12/18 08:59 12/17/17 08:37 Lansoprazole (Prevacid) 30 mg DAILY GT 12/14/17 09:00 01/12/18 08:59 12/17/17 08:36 Levetiracetam (Keppra) 1,000 mg Q12HR ORAL 12/13/17 21:00 01/12/18 20:59 12/17/17 08:36 Metoclopramide HCl (Reglan) 10 mg Q8H PRN IVP Nausea & Vomiting 12/14/17 08:00 01/13/18 07:59 12/14/17 08:37 Midodrine (Pro-Amatine) 10 mg THREE TIMES A DAY GT 12/13/17 18:00 01/12/18 08:59 12/15/17 17:15 Saccharomyces Boulardii (Florastor) 250 mg TID ORAL 12/13/17 18:00 01/12/18 08:59 12/17/17 13:27 Kortney Quiñones M.D. Dec 17, 2017 14:48
--- NOTE | 2017-12-17 14:49 | General Progress Note ---
Assessment/Plan Status: stable Assessment/Plan #. Anemia of chronic disease -- workup has been reviewed from before and noted to have high ferritin 1500, other labs consistent with ACD --> Cont to monitor, cbc monitoring minimum q2d --> started on folic acid daily --> hgb goal >7, transfuse prn basis --> heparin 5k sq tid as ppx #. 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 She also has a history of a seizure disorder that is undefined. --> appreciate neuro recs from prior admission # Respiratory failure and now s/p takedown --> appreciate pulm recs # Urinary tract infection, and multiple episodes of sepsis. --> s/p abx treatment and seen by ID --> currently completed abx # Hydronephrosis R kidney --> may need stent exchange per uro, appreciate their recs # Dysphagia s/p peg tube --> getting g-tube feeds # Trace right sided pleural effusion # Bioethics/hospice services consulted --> recommended hospice last admission # DVT ppx with heparin sq Subjective Date patient seen: Dec 17, 2017 Hematologic/Lymphatic: Reports: anemia Allergies: Coded Allergies: CEFEPIME (Unverified Allergy, Unknown, 11/09/17) All Systems: reviewed and negative except above Subjective No acute events. H/H stable. DC planning. Objective Last 24 Hour Vital Signs Date Time Temp Pulse Resp B/P (MAP) Pulse Ox O2 Delivery O2 Flow Rate FiO2 12/17/17 12:00 98.1 98 17 117/61 (79) 98 98.1 12/17/17 09:00 Nasal Cannula 2.0 12/17/17 08:00 96.6 106 17 116/57 (76) 99 96.6 12/17/17 04:00 97.5 111 18 125/87 (100) 97 97.5 12/17/17 00:00 97.1 116 18 136/87 (103) 96 97.1 12/16/17 21:00 Nasal Cannula 2.0 12/16/17 20:00 97.1 110 18 120/80 (93) 97 97.1 12/16/17 19:16 Nasal Cannula 2.0 28 12/16/17 19:16 100 Nasal Cannula 2.0 28 12/16/17 15:55 97.5 92 20 118/80 (93) 100 97.5 Intake and Output 12/16/17 12/17/17 19:00 07:00 Intake Total 910 ml 1020 ml Output Total 800 ml Balance 110 ml 1020 ml Intake Free Water 250 ml 300 ml Tube Feeding 660 ml 720 ml Output Urine Total 800 ml Laboratory Tests 12/17/17 06:40: White Blood Count 6.9, Red Blood Count 3.12L, Hemoglobin 9.4L, Hematocrit 28.5L , Mean Corpuscular Volume 91, Mean Corpuscular Hemoglobin 30.1, Mean Corpuscular Hemoglobin Concent 32.9, Red Cell Distribution Width 15.6H, Platelet Count 392, Mean Platelet Volume 7.0, Neutrophils (%) (Auto) 52.5, Lymphocytes (%) (Auto) 28.1, Monocytes (%) (Auto) 6.6, Eosinophils (%) (Auto) 11.6H, Basophils (%) (Auto) 1.1, Sodium Level 146H, Potassium Level 5.6H, Chloride Level 113H, Carbon Dioxide Level 24, Anion Gap 9, Blood Urea Nitrogen 33H, Creatinine 1.2, Estimat Glomerular Filtration Rate 46.8, Glucose Level 84, Calcium Level 9.5 Height (Feet): 5 Height (Inches): 7.00 Weight (Pounds): 146 General Appearance: no apparent distress EENT: PERRL/EOMI Neck: normal alignment Cardiovascular: tachycardia, irregularly irregular Respiratory/Chest: no respiratory distress Abdomen: soft Dawit Mcclendon MD Dec 17, 2017 14:49
[2017-12-17 16:00] VITALS: BP 112/71
--- NOTE | 2017-12-18 15:46 | Discharge Summary ---
Discharge Summary Discharge Summary _ DATE OF ADMISSION: 12/12/2017 DATE OF DISCHARGE: 12/17/2017 CONSULTANTS: Dr. Dawit Chan BRIEF HOSPITAL COURSE: Patient is a 52-year-old female, who was just discharged, was brought in by EMS due to altered level of consciousness at the longterm. There were no reports of vomiting or diarrhea. She has medical history significant for anemia , hyperlipoproteinemia, thrombocytopenia, right-sided craniotomy and significant right brain encephalomalacia, seizure disorder, respiratory failure status post trach and recurrent UTI, hydronephrosis of the right kidney, dysphagia status post PEG and pleural effusions. On evaluation at ED, vital signs were stable, blood work did not show any leukocytoses, however there was evidence of anemia. LFTs and lipase elevated. Creatinine was elevated 1.8, BUN 49. She had stable electrolytes. Urinalysis showed too many to count WBC, too many to count RBC, 2+ leukocyte esterase and moderate bacteria. EKG showed normal sinus rhythm at a rate of 77 with no PVCs , no ectopy. She had a CT of the head that was unchanged compared to prior examination. There was no mass effect or edema or acute intracranial hemorrhage identified. There was ventriculostomy demonstrated unchanged in position. No hydrocephalus demonstrated. There was large craniectomy defect chronic in nature bilaterally, large area of encephalomalacia involving the right cerebrum. She was then admitted for possible sepsis. She was placed empirically on vancomycin and meropenem pending culture results. She was given IV hydration. She had hydronephrosis suspect secondary to malfunctioning stent. LFTs and lipase elevated. She was restarted on tube feeding. She had large residuals, she was given Reglan. Prior anemia workup showed anemia of chronic disease. She had elevated ferritin levels. She was started on folic acid. She had elevated protein, possibly from multiple myeloma, could also be secondary to dehydration. Urine culture showed growth of yeast, possibly contaminants. She was taken off of antibiotic treatment and was observed off antibiotics. Bioethics was consulted. Patient's daughter agreed tDO NOT RESUSCITATE/DO NOT INTUBATE would be appropriate and agreed for patient to return to facility under hospice. POLST was updated. Patient was discharged back to longterm to transition to hospice. FINAL DIAGNOSES: Urinary tract infection Catheter associated urinary tract infection Abnormal LFTs Hydronephrosis of right kidney Acute renal failure Dehydration with hypernatremia Altered mental status/encephalopathy Anemia of chronic disease Hyperproteinemia Severe brain trauma with right-sided craniectomy and significant right brain encephalomalacia Respiratory failure status post takedown Trace right-sided pleural effusion Right kidney hydronephrosis Hospice care/palliative care DISPOSITION: Patient was discharged back to [place] DISCHARGE MEDICATIONS: Refer to Discharge Medication List. I have been assigned to dictate discharge summary on this account, and I was not involved in the patient's management. Veronica Stiles NP Dec 18, 2017 15:46
== END 2017-12-17 17:30 | DRG 466 ==
LOC: EDBD 14:36 → EDBEDREQ 15:53 → EMR 16:11 → 2E 17:10 → EDBEDREQ 17:48 → 4E 12-13 13:10
DX: T83.511A Infection and inflammatory reaction due to indwelling urethral catheter, initial encounter (principal); J96.90 Respiratory failure, unspecified, unspecified whether with hypoxia or hypercapnia; G93.40 Encephalopathy, unspecified; N17.9 Acute kidney failure, unspecified; G91.1 Obstructive hydrocephalus; K85.90 Acute pancreatitis without necrosis or infection, unspecified; I95.9 Hypotension, unspecified; R13.10 Dysphagia, unspecified; D69.6 Thrombocytopenia, unspecified; G93.89 Other specified disorders of brain; Z43.1 Encounter for attention to gastrostomy; N39.0 Urinary tract infection, site not specified; D63.8 Anemia in other chronic diseases classified elsewhere; G40.909 Epilepsy, unspecified, not intractable, without status epilepticus; Z87.820 Personal history of traumatic brain injury; Z66 Do not resuscitate; E86.0 Dehydration; E87.0 Hyperosmolality and hypernatremia; N13.39 Other hydronephrosis; E88.09 Other disorders of plasma-protein metabolism, not elsewhere classified; Z98.890 Other specified postprocedural states; Z51.5 Encounter for palliative care; Z88.8 Allergy status to other drugs, medicaments and biological substances; Z98.2 Presence of cerebrospinal fluid drainage device; R47.01 Aphasia; K21.9 Gastro-esophageal reflux disease without esophagitis; Y84.6 Urinary catheterization as the cause of abnormal reaction of the patient, or of later complication, without mention of misadventure at the time of the procedure; L89.619 Pressure ulcer of right heel, unspecified stage
CPT/HCPCS: 36415; 70450; 71045; 80048; 80053; 80076; 80202; 80299; 81003; 82550; 82553; 82962; 83605; 83690; 83880; 84484; 85025; 87040; 87081; 87086; 93005; 94760; 96365; 96367; 99285; J2765; S0077